=== PATIENT | female | born 2005 | race Caucasian/White ===

== ENCOUNTER 2023-06-07 14:10 | Emergency (ER) | payer OTHER, SELFPAY ==
[2023-06-07 14:11] VITALS: BP 127/88; PULSE 98; RESP 17; TEMP 36.2; BMI 28.4
[2023-06-07 14:18] VITALS: O2SAT 100
--- NOTE | 2023-06-07 14:24 | EKG12_ITS ---
Test Reason : Blood Pressure : / mmHG Vent. Rate : 078 BPM Atrial Rate : 078 BPM P-R Int : 158 ms QRS Dur : 084 ms QT Int : 380 ms P-R-T Axes : 044 082 036 degrees QTc Int : 433 ms Normal sinus rhythm Normal ECG Confirmed by ROBERT STEVENSON ([id number]), lime boiler INGRIS PURCELL ([id number]) on 06/20/2023 2:06:39 PM Referred By: Confirmed By:ROBERT STEVENSON
--- NOTE | 2023-06-07 14:28 | EDS_ITS ---
HPI History of Present Illness Chief Complaint: Syncope Informant: patient and spouse/S.O. Onset/Context/Timing Onset: Today Narrative Narrative: Patient presents with lightheadedness and syncope. She was standing outside at a when she became warm and lightheaded. She had some slight nausea. She apparently was in and out when trying to walk to the car. Patient does have a history of tachycardia but states she never followed up with the cardiac sonographer. She also started her menstrual cycle 3 days ago. She states the blood has been very dark in clotting more than normal. She reports that she also recently started taking a supplement called Yariel support which is supposed to help with the effects of COVID and the COVID- vaccine. She states as far she is aware it is vitamins and supplements but she does not know the specific ingredients. PFSH PFS Medical History Anxiety Depression H/O traumatic brain injury Home Medications ondansetron 4 mg disintegrating tablet 4 mg PO Q8H 06/07/23 [History Last Taken Unknown] rizatriptan 10 mg tablet (Maxalt) See Rx Instructions PO .COMPLEX 06/07/23 [History Last Taken Unknown] Allergy/AdvReac Type Severity Reaction Status Date / Time amoxicillin Allergy Unknown PT UNSURE Verified 06/07/23 14:16 OF REACTION Surgical History Hx of tonsillectomy Social History Smoking Status: Never smoker ROS ROS ED Constitutional Constitutional ED: Denies chills or fever(s) Eyes Eyes: Denies change in vision or discharge from eye(s) ENT ENT ED: Denies discharge from eye(s), rhinorrhea or sore throat Cardiovascular Cardiovascular: Denies chest pain Respiratory/Chest Respiratory/Chest: Denies cough or dyspnea Gastrointestinal Gastrointestinal: Reports nausea; Denies abdominal pain, diarrhea or vomiting Genitourinary Genitourinary ED: Denies dysuria Musculoskeletal Musculoskeletal: Denies back pain or extremity pain Integumentary Denies Abrasions or rash Neurologic Neurologic: Reports weakness; Denies headache(s) Psychiatric Psychiatric: Denies anxiety or depression Allergic/Immunologic Allergic/Immunologic ED: Denies lip swelling or urticaria EXAM Physical Exam Narrative Exam Narrative: Patient resting with her eyes closed but answers questions appropriately. Const Vital Signs: 06/07/23 14:11 06/07/23 14:18 06/07/23 14:18 Temperature 97.2 F L Temperature Source Temporal Pulse Rate 98 Respiratory Rate 17 Respiratory Effort Normal Non-Labored Respiratory Pattern Normal Blood Pressure 127/88 H Blood Pressure Mean 101 Pulse Ox 100 Oxygen Delivery Method Room Air Positive well nourished and well developed General Appearance ED: well developed HEENT Reports normocephalic and head/scalp atraumatic Eyes PERRL and EOMs intact bilaterally Neck supple Chest Wall inspection of chest normal and palpation of chest normal Resp normal respiratory effort and clear to auscultation bilaterally Cardio regular rate and regular rhythm GI normal to inspection, nondistended, normoactive bowel sounds Palpation: soft Extremity normal to inspection Neuro oriented x3 and no sensory deficits noted Sensorium / Orientation: alert Motor Exam: strength 5/5 throughout Psych mental status grossly normal Skin no rashes or lesions noted MDM MDM MDM Narrative Medical decision making narrative: Patient placed on panel monitor. EKG obtained to evaluate for cardiac arrhythmia/ischemia. Labwork obtained to evaluate for leukocytosis, anemia, and electrolyte derangement. Patient given a liter IV fluids. Lab Data Labs: Laboratory Results - last 24 hr 06/07/23 14:17 WBC 8.0 RBC 4.80 Hgb 13.3 Hct 41.8 MCV 87.1 MCH 27.7 MCHC 31.8 L RDW Std Deviation 40.2 RDW Coeff of Aldair 12.6 Plt Count 321 MPV 10.0 Immature Gran % (Auto) 0.400 Neut % (Auto) 61.0 Lymph % (Auto) 29.7 [place] % (Auto) 7.4 Eos % (Auto) 1.0 Baso % (Auto) 0.5 Absolute Neuts (auto) 4.9 Absolute Lymphs (auto) 2.37 Nucleated RBC % 0 Sodium 139 Potassium 3.8 Chloride 108 H Carbon Dioxide 26.0 Anion Gap 5 BUN 13 Creatinine 0.83 Estim Creat Clear Calc 109.07 Est GFR (MDRD) Af Amer 113 Est GFR (MDRD) Non-Af 93 BUN/Creatinine Ratio 15.7 Glucose 93 Calcium 9.3 Serum , Qual NEGATIVE EKG Initial EKG: Attestation: I personally reviewed and interpreted this EKG as follows: Interpretation: Sinus Rhythm (Sinus at 78 with no acute ischemia.) Treatment and Re-Evaluation :: On repeat evaluation patient feels significantly improved. CBC is unremarkable. Chemistry studies are normal. test is negative. Patient is ambulated in the emergency department without difficulty. She feels back to baseline will be discharged home with family. Discharge Plan Triage Chief Complaint: Syncope ED Provider: Mandy Fontaine Dx/Rx/DC Orders Clinical Impression: Syncope Instructions: ED Fainting, Uncertain Cause Prescriptions: No Action rizatriptan [Maxalt] 10 mg tablet See Rx Instructions .ROUTE .COMPLEX Rx Instructions: take 1 tab at onset of headache; if no relief may repeat 1 tab after at least 2 hrs; max = 3 tabs/24 hr ondansetron 4 mg tablet,disintegrating 4 mg PO Q8H Primary Care Provider: Kim Ward Referrals: Kim Ward [Other] - 3-5 Days if not improving Disposition Disposition: Home, Self Care
[2023-06-07] MEDS: 0.9% Normal Saline 1,000 ML 1000 ML IV (14:36)
[2023-06-07 14:50] LABS: Absolute Lymphocyte Count 2.37 X10^3/uL (0.83-4.51); Absolute Neutrophil Count 4.9 X10^3/uL (2.0-7.7); Basophil# 0.04 X10^3/uL; Basophil% 0.5 % (0-1); Eosinophil# 0.08 X10^3/uL; Hematocrit 41.8 % (37-47); Hemoglobin 13.3 g/dL (12.0-15.0); Lymphocyte # 2.37 X10^3/ul (0.83-4.51); Lymphocyte % 29.7 % (19-41); Mean Corp Hgb Conc 31.8 g/dL (32-36); Mean Corpuscular Hgb 27.7 pg (27.0-32.0); Mean Corpuscular Volume 87.1 fL (81-99); Monocyte# 0.59 X10^3/uL; Monocyte% 7.4 % (0-10); NRBC Flagged by Analyzer 0 % (0-5); Neutrophil # 4.87 X10^3/uL (2.7-7.7); Platelet Count 321 K/mm3 (150-450); RBC Distribution Width CV 12.6 % (11.6-14.6); RBC Distribution Width SD 40.2 fl (35.1-43.9)
[2023-06-07 15:04] LABS: Anion Gap 5 (5-15); BUN 13 mg/dL (7-18); BUN/Creat Ratio 15.7 RATIO (10-20); Calcium,Total 9.3 mg/dL (8.5-10.1); Chloride 108 mmol/L (98-107); Creatinine, Serum 0.83 mg/dL (0.55-1.02); EST Glomerular Filtration Rate 93 mL/min (>60); Est Glom Filt Rate - Afr Amer 113 mL/min (>60); Estimated Creatinine Clearance 109.07 ml/min; Glucose 93 mg/dL (74-106); Potassium 3.8 mmol/L (3.5-5.1); Sodium Level 139 mmol/L (136-145)
[2023-06-07 15:18] LABS: Internal QC Validated? YES +Cl - CLEAR BKGD; Pregnancy, Serum, hCG Quali. NEGATIVE Negative
[2023-06-07 16:04] VITALS: PULSE 87; RESP 18; O2SAT 100
[2023-06-10 07:14] LABS: Bedside Glucose 70 mg/dL (74-106)
== END 2023-06-07 16:07 | disposition home or self-care (01) ==
PROVIDERS: Emergency Provider Emergency Medicine; Visit Provider Emergency Medicine
DX: R55 Syncope and collapse (principal)
CPT/HCPCS: 80048; 82962; 84703; 85025; 93005; 96360; 99283; J7030

== ENCOUNTER 2023-12-30 10:12 | Emergency (ER) | payer OTHER, SELFPAY ==
[2023-12-30 10:12] VITALS: BP 122/73; PULSE 119; RESP 16; TEMP 36.9; O2SAT 100
[2023-12-30 10:13] VITALS: BP 122/73; PULSE 124; RESP 16; TEMP 36.9; O2SAT 100; BMI 28.0
--- NOTE | 2023-12-30 10:36 | EDS_ITS ---
HPI History of Present Illness Chief Complaint: Shortness of Breath Detail of Chief Complaint: Cough and shortness of breath Informant: patient Narrative Narrative: Patient started with nasal drainage and a cough 4 days ago. Seen at urgent care yesterday and had a negative strep screen. Discharged to home. Last night had a hard time sleeping and had some tightness in her chest. She called her PCPs office and was told to come to the ER to get evaluated. Patient has history of asthma. Patient called the office today to try to get inhaler prescribed for her. She denies any fevers. Patient denies recent travel or surgery. She d enies chest pain other than some tightness in the anterior chest. PFSH PFS Medical History Anxiety Depression H/O traumatic brain injury Home Medications ondansetron 4 mg disintegrating tablet 4 mg PO Q8H 06/07/23 [History Last Taken Unknown] rizatriptan 10 mg tablet (Maxalt) See Rx Instructions PO .COMPLEX 06/07/23 [History Last Taken Unknown] prednisone 20 mg tablet 20 mg PO BID #6 tabs 12/30/23 [Rx Last Taken Unknown] Allergy/AdvReac Type Severity Reaction Status Date / Time No Known Allergies Allergy Verified 12/30/23 10:16 Surgical History Hx of tonsillectomy Social History Smoking Status: Never smoker ROS ROS ED Review of Systems ROS Unobtainable: other Constitutional Constitutional ED: Reports lethargy; Denies chills, fever(s), sweats or weight loss Eyes Eyes: Denies blurry vision, change in vision or diplopia ENT ENT ED: Denies rhinorrhea or sore throat Cardiovascular Cardiovascular: Reports racing heartbeat; Denies chest pain or orthopnea Respiratory/Chest Respiratory/Chest: Reports cough, dyspnea and dyspnea on exertion; Denies orthopnea or sputum Gastrointestinal Gastrointestinal: Denies abdominal pain, diarrhea, nausea or vomiting Genitourinary Genitourinary ED: Denies dysuria, hematuria or urinary frequency Musculoskeletal Musculoskeletal: Denies arthralgias, back pain, myalgias or neck pain Integumentary Denies abscess, Abrasions or rash Neurologic Neurologic: Denies headache(s) or weakness Psychiatric Psychiatric: Denies anxiety, depression or suicidal thoughts Endocrine Endocrinology: Denies polydipsia, polyphagia or polyuria Hematologic/Lymphatic Hematologic/Lymphatic: Denies easy bleeding, easy bruising or lymphadenopathy Allergic/Immunologic Allergic/Immunologic ED: Denies mouth swelling, tongue swelling or urticaria EXAM Physical Exam Const Vital Signs: 12/30/23 10:12 12/30/23 10:13 12/30/23 10:43 Temperature 98.4 F 98.4 F Temperature Source Temporal Temporal Pulse Rate 119 H 124 H Respiratory Rate 16 16 Respiratory Effort Normal Non-Labored Respiratory Depth Normal Respiratory Pattern Normal Blood Pressure 122/73 H 122/73 H Blood Pressure Mean 89 89 Pulse Ox 100 100 Oxygen Delivery Method Room Air Room Air Room Air 12/30/23 10:56 Temperature Temperature Source Pulse Rate 81 Respiratory Rate 19 H Respiratory Effort Respiratory Depth Respiratory Pattern Normal Blood Pressure Blood Pressure Mean Pulse Ox Oxygen Delivery Method Positive well nourished and well developed General Appearance ED: well developed and NAD HEENT Reports TM's clear and moist mucous membranes normocephalic and atraumatic; Negative for trauma or tenderness Tympanic Membrane ED: Yes TM's clear Eyes PERRL and EOMs intact bilaterally General Eye ED: Negative for pale conjunctiva or scleral icterus Neck no lymphadenopathy, supple and no JVD General: Negative for tenderness Chest Wall inspection of chest normal and palpation of chest normal Chest: Negative for tenderness Resp normal respiratory effort and clear to auscultation bilaterally Resp Narrative: Minimal faint wheezes bilaterally. Good aeration bilaterally. No accessory muscle use or retractions. Effort and Inspection: Negative for respiratory distress or pain with movement Auscultation: wheezes; Negative for rhonchi or diminished lung sounds Cardio regular rhythm, S1 normal heart sound, S2 normal heart sound and no murmurs; Negative for regular rate Rate: tachycardic Peripheral Pulses: pulses 2+ throughout GI normal to inspection, nondistended, normoactive bowel sounds, soft to palpation, non-tender, non-distended and no masses Back/Spine no CVA tenderness and no thoracic nor lumbar tenderness Extremity normal to inspection General Extremety ED: Negative for edema General Extremity: Negative for edema Neuro oriented x3, CN's II-XII intact bilaterally, no sensory deficits noted and gait normal Sensorium / Orientation: awake, alert, oriented to person, oriented to place and oriented to time Motor Exam: strength 5/5 throughout and strength abnormal Psych mental status grossly normal Skin no rashes or lesions noted and no wounds MDM MDM MDM Narrative Medical decision making narrative: Patient presents with cough and some wheezing with history of asthma. She was given a DuoNeb aerosol. Chest x-ray obtained was unremarkable. Patient had COVID flu and RSV testing was positive for influenza B. Patient will be given an inhaler and will be started on prednisone. She is out of the window for Tamiflu. Advised to follow-up with her primary care physician within next 5 to 7 days. Patient advised to return if increasing shortness of breath or condition should worsen anyway. Lab Data Attestation: I reviewed the patient's lab results. Radiography Diagnostic Testing: Clinical Impression(s) from Imaging Studies Chest X-Ray 12/30/23 11:15 IMPRESSION: Normal x-ray examination of the chest. Electronically Signed: Emiliano House MD at 11:35 EDT , 1 view chest x-ray obtained interpreted by myself as no evidence of infiltrate or pneumothorax or acute disease process. Radiology in agreement. Discharge Plan Triage Chief Complaint: Shortness of Breath ED Provider: Giovani Fernandez Dx/Rx/DC Orders Clinical Impression: Reactive airway disease, Influenza Instructions: ED Bronchitis with Wheezing (Adult), ED Influenza (Adult) Prescriptions: New prednisone 20 mg tablet 20 mg PO BID Qty: 6 0RF No Action rizatriptan [Maxalt] 10 mg tablet See Rx Instructions .ROUTE .COMPLEX Rx Instructions: take 1 tab at onset of headache; if no relief may repeat 1 tab after at least 2 hrs; max = 3 tabs/24 hr ondansetron 4 mg tablet,disintegrating 4 mg PO Q8H Primary Care Provider: Kim Ward Referrals: Kim Ward [Other] Disposition Disposition: Home, Self Care
[2023-12-30] MEDS: Ipratropium/Albuterol Sulfate 3 ML AMPUL.NEB INHALATION (10:55)
[2023-12-30 10:56] VITALS: PULSE 81; RESP 19
--- NOTE | 2023-12-30 11:15 | RAD_ITS ---
STUDY: X-RAY CHEST REASON FOR EXAM: Female, 18 years old. Cough, dyspnea TECHNIQUE: PA and lateral views of the chest. COMPARISON: None. FINDINGS: The lungs are clear and expanded. There is no demonstrated pleural abnormality. Normal size heart. Normal mediastinum and tan. Normal visualized pulmonary arteries. Normal visualized aortic arch and descending thoracic aorta. Normal visualized thoracic spine. Normal visualized ribs, clavicles, and shoulders. There is no demonstrated abnormality of the visualized soft tissue structures of the upper abdomen. RAD/Chest PA and Lateral IMPRESSION: Normal x-ray examination of the chest. Electronically Signed: Emiliano House MD at 11:35 EDT ,
[2023-12-30 12:12] VITALS: BP 108/71; PULSE 92; RESP 16; TEMP 36.9; O2SAT 99
[2023-12-30] MEDS: Albuterol Sulfate 8 gm Inhaler (60 puffs) 2 PUFF INHALATION (12:26)
[2023-12-30] MEDS: predniSONE 20 MG Tablet 40 MG PO (12:26)
[2023-12-30 12:29] VITALS: BP 108/71; PULSE 92; RESP 16; TEMP 36.9; O2SAT 99
== END 2023-12-30 12:30 | disposition home or self-care (01) ==
PROVIDERS: Emergency Provider Emergency Medicine; Visit Provider Emergency Medicine
DX: J45.909 Unspecified asthma, uncomplicated (principal); J11.1 Influenza due to unidentified influenza virus with other respiratory manifestations
CPT/HCPCS: 71046; 87631; 94640; 99282

== ENCOUNTER 2024-12-02 10:53 | Emergency (ER) | payer OTHER, SELFPAY ==
[2024-12-02 10:54] VITALS: BP 95/71; PULSE 107; RESP 16; TEMP 36.8; O2SAT 100; BMI 28.1
[2024-12-02 12:22] VITALS: O2SAT 100
--- NOTE | 2024-12-02 12:35 | RAD_ITS ---
PROCEDURE: CHEST PA AND LATERAL REASON FOR EXAM: Shortness of breath. The patient is 13 weeks . Adequate shielding was obtained. TECHNIQUE: PA and lateral chest radiographs were obtained. COMPARISON: December 30, 2023. FINDINGS: The heart is nonenlarged. The lungs are clear. Scattered calcified granulomas. RAD/Chest PA and Lateral IMPRESSION: No acute abnormality is seen. Reading Location: [facility]
--- NOTE | 2024-12-02 12:47 | EX.ED.DYSGE1 ---
HPI History of Present Illness Chief Complaint: Asthma Detail of Chief Complaint: Exacerbation of asthma, postnasal drainage, sore throat Onset/Context/Timing Onset: Yesterday Context: Sudden Onset Timing: Intermittent Quality: Mild upper respiratory symptoms with wheezing and shortness of breath Location: Respiratory Current Severity: Mild Maximum Severity: Moderate Worsened by: Nothing specific Relieved by: Nothing Associated Symptoms Associated Symptoms: Denies fever or chills Narrative Narrative: Patient is a 19-year-old female who is 13 weeks gestation. She has mild upper respiratory tract symptoms. She denies documented fever. She denies shaking chills or subjective fever. She does have mild congestion with sore throat. Denies ear pain. She has slight cough. She has been wheezing. She has been using her inhaler more frequent. Does not have a spacer. She has not been on prednisone in the last 3 to 6 months. She denies abdominal pain, nausea, vomit or diarrhea. When asked if it hurts to breathe she states she feels she is not getting enough air. She has no history of VTE. Denies leg pain, swelling discoloration. Review of prior records in case patient has been on prednisone in the past for her asthma. Prior similar symptoms: Yes Recent Illness/Hospitalization: No PFSH PFSH Medical History H/O traumatic brain injury Depression Anxiety Home Medications ?Medication ?Instructions ?Recorded ?Last Taken ?Type ondansetron 4 mg disintegrating 4 mg PO Q8H 06/07/23 Unknown History tablet rizatriptan 10 mg tablet (Maxalt) See Rx Instructions PO .COMPLEX 06/07/23 Unknown History prednisone 20 mg tablet 20 mg PO BID #6 tabs 12/30/23 Unknown Rx prednisone 20 mg tablet 60 mg (3 x 20 mg) PO DAILY #15 12/02/24 Unknown Rx TABLETS Allergy/AdvReac Type Severity Reaction Status Date / Time No Known Allergies Allergy Verified 12/02/24 10:54 Surgical History Hx of tonsillectomy Social History household members: spouse housing: house Smoking Status: Never smoker ROS ROS ED Constitutional Constitutional ED: Denies chills, fever(s) or subjective Eyes Eyes: Denies blurry vision or change in vision ENT ENT ED: Reports sore throat; Denies ear pain or rhinorrhea Cardiovascular Cardiovascular: Denies chest pain, orthopnea, palpitations or paroxysmal nocturnal dyspnea Respiratory/Chest Respiratory/Chest: Reports cough, dyspnea and dyspnea on exertion; Denies orthopnea, paroxysmal nocturnal dyspnea or sputum Gastrointestinal Gastrointestinal: Denies abdominal pain, diarrhea, nausea or vomiting Genitourinary Genitourinary ED: Denies dysuria, hematuria or urinary frequency Musculoskeletal Musculoskeletal: Denies arthralgias or myalgias Integumentary Denies rash Neurologic Neurologic: Denies headache(s) or paresthesias Hematologic/Lymphatic Hematologic/Lymphatic: Reports systems reviewed and no addt'l complaints, except as documented EXAM Physical Exam Const Vital Signs: 12/02/24 10:54 12/02/24 12:22 12/02/24 12:54 Temperature 98.2 F Temperature Source Temporal Pulse Rate 107 H 87 Respiratory Rate 16 Respiratory Effort Short of Breath Respiratory Depth Normal Respiratory Pattern Tachypnea Blood Pressure 95/71 104/64 Blood Pressure Mean 79 77 Pulse Ox 100 99 Oxygen Delivery Method Room Air Room Air 12/02/24 14:00 Temperature Temperature Source Pulse Rate 102 H Respiratory Rate 14 Respiratory Effort Respiratory Depth Respiratory Pattern Blood Pressure 108/72 Blood Pressure Mean 84 Pulse Ox 99 Oxygen Delivery Method Room Air Positive well nourished and well developed General Appearance ED: well developed and NAD; Negative for cyanotic, diaphoretic or pallor HEENT Reports moist mucous membranes HEENT Narrative: Head is atraumatic normocephalic. Ears normal. TMs normal. Nares patent with questionable slight drainage. Posterior pharynx is normal Eyes PERRL and EOMs intact bilaterally General Eye ED: Negative for pale conjunctiva or scleral icterus Neck no lymphadenopathy, supple and no JVD Chest Wall inspection of chest normal and palpation of chest normal Resp normal respiratory effort and clear to auscultation bilaterally Cardio regular rate, regular rhythm, S1 normal heart sound, S2 normal heart sound and no murmurs GI normal to inspection, nondistended, normoactive bowel sounds, non-tender, non-distended and no masses Extremity normal to inspection Extremity Narrative: There is no asymmetry, swelling, discoloration, leg vein distention, palpable cords or tenderness along the distribution of the deep venous system. Neuro oriented x3 and CN's II-XII intact bilaterally Sensorium / Orientation: alert Psych mental status grossly normal Skin no rashes or lesions noted, no wounds and skin turgor normal General Skin Exam: elasticity normal; Negative for jaundice or pallor MDM MDM MDM Narrative Medical decision making narrative: Suspect patient has mild viral-like symptoms that is causing exacerbation of her asthma. Since she is presently not wheezing she was not treated with any sympathomimetic inhaler or aerosol. Chest x-ray was obtained. Also obtain rapid antigen for COVID, RSV and influenza. X-ray was obtained to rule out pneumothorax, infiltrate or any other abnormality. Lab Data Attestation: I reviewed the patient's lab results. Lab results narrative: Rapid antigen for COVID, influenza and RSV are all negative. In my opinion this is due to a viral infection causing exacerbation of her asthma. She be discharged home. I am not concerned that she has a pulmonary embolus Radiography Chest X-Ray - ED: 2 View, Read by ED Physician (Interpreted by me at 1247.), Normal, Heart, Lungs, Mediastinum, Bony Structures and No Acute Disease Diagnostic Testing: Clinical Impression(s) from Imaging Studies Chest X-Ray 12/02/24 12:35 IMPRESSION: No acute abnormality is seen. 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, pneumonia Reason(s) pneumonia less likely: Positive for no infiltrate on CXR and no noted fever, CHF Reason(s) CHF less likely: Positive for no significant peripheral edema, no orthopnea, no evidence of fluid overload on CXR and BtNP not significantly elevated over normal/baseline and COPD Reason(s) COPD less likely: Positive for no significant wheezing on exam, no tachypnea, no conversational dyspnea and normal air movement noted on auscultation on lungs Discharge Plan Triage Chief Complaint: Asthma ED Provider: Rick Rodrigues Dx/Rx/DC Orders Clinical Impression: Asthma exacerbation, Viral respiratory illness Instructions: ED URI, Viral, No Abx (Adult) Prescriptions: New prednisone 20 mg tablet 60 mg PO DAILY Qty: 15 0RF No Action rizatriptan [Maxalt] 10 mg tablet See Rx Instructions .ROUTE .COMPLEX Rx Instructions: take 1 tab at onset of headache; if no relief may repeat 1 tab after at least 2 hrs; max = 3 tabs/24 hr ondansetron 4 mg tablet,disintegrating 4 mg PO Q8H prednisone 20 mg tablet 20 mg PO BID Qty: 6 0RF Primary Care Provider: Kim Ward Referrals: Kim Ward [Other] - 1 Week if not improving Print Language: Italian Disposition Disposition: Home, Self Care
[2024-12-02 12:54] VITALS: BP 104/64; PULSE 87; O2SAT 99
[2024-12-02 14:00] VITALS: BP 108/72; PULSE 102; RESP 14; O2SAT 99
== END 2024-12-02 14:40 | disposition home or self-care (01) ==
PROVIDERS: Emergency Provider Emergency Medicine; Referring Provider Emergency Medicine; Visit Provider Emergency Medicine
DX: O99.511 Diseases of the respiratory system complicating pregnancy, first trimester (principal); J45.901 Unspecified asthma with (acute) exacerbation; J06.9 Acute upper respiratory infection, unspecified; Z3A.13 13 weeks gestation of pregnancy
CPT/HCPCS: 71046; 87631; 99283; A4216

== ENCOUNTER 2025-06-06 04:51 | Inpatient (IN) | payer OTHER, SELFPAY ==
[2025-06-06] VITALS (63 sets, daily range): BP systolic 96–139; BP diastolic 55–87; PULSE 68–107; RESP 16–18; TEMP 36.5–37.3; O2SAT 79–100; BMI 34.0
--- OUTSIDE RECORDS SUMMARY | 2025-06-06 04:22 | XMS RPT_ITS | CCD ---
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 Name Role Phone Sylvia VICKERS, Kim Primary Care Provider Amstadt DO, Kim Primary Care Provider CoursJacques umana DO Unavailable Jacques Hu DO Unavailable Amstadt DO, Kim Primary Care Provider AMSDT, KIM Primary Care Unavailable Harvan [facility] COOK.Felicia PETTIT Unavailable Amstadt , [facility] Primary Care Provider FAIR, MUDITA Primary Care Unavailable Rodrigues, Rcik Referring Unavailable Rodrigues, Rick Attending Unavailable Giovani Fernandez Attending Unavailable FAIR, MUDITA Primary Care Unavailable Mary Ellen NUTRITIONAL SERVICES COOK.Jillian PETTIT Unavailable [phone] Donte Singleton MD Primary Care Provider Podlogar [facility] COOK.Lexy PETTIT Unavailable [place] [facility] COOK.Shobha PETTIT Unavailable Amstadt DO, [facility] Primary Care Provider Harvan [facility] COOK.Felicia PETTIT Unavailable Am[place] , [facility] Primary Care Provider [place] [facility] COOK.Jillian PETTIT Unavailable [place] [facility] COOK.Shobha PETTIT Unavailable Jacques Hu DO Unavailable ALLI FORRESTER Referring Unavailable MANDY SAM Attending Unavailable AMSTADT, KIM Primary Care Unavailable BURSLEY, CHRISTOPHER Primary Care Unavailable KAMRAN GUTHRIE Attending Unavailable ARLENE NARAYAN Attending Unavailable BURSLEY, CHRISTOPHER Primary Care Unavailable ANGÉLICAWELLCLARE Attending Unavailable AMSTADT, KIM Primary Care Unavailable ARLENE NARAYAN Attending Unavailable BURSLEY, CHRISTOPHER Primary Care Unavailable ARLENE NARAYAN Referring Unavailable TATI BOWLES Attending Unavailable BURSLEY, CHRISTOPHER Primary Care Unavailable CLARE FRANK Attending Unavailable BURSLEY, CHRISTOPHER Primary Care Unavailable MANDY SAM Attending Unavailable BURSLEY, CHRISTOPHER Primary Care Unavailable BURSLEY, CHRISTOPHER Primary Care Unavailable TATI BOWLES Attending Unavailable BURSLEY, NELLER Attending Unavailable SELF Referring Unavailable AMSTADT, KIM Primary Care Unavailable TATI BOWLES Attending Unavailable AMSTADT, KIM Primary Care Unavailable BURSLEY, CHRISTOPHER Primary Care Unavailable NICKY CONNELL Attending Unavail able AMSTADT, KIM Primary Care Unavailable BURSLEY, CHRISTOPHER Primary Care Unavailable BURSLEY, CHRISTOPHER Attending Unavailable BURSLEY, CHRISTOPHER Primary Care Unavailable BURSLEY, CHRISTOPHER Referring Unavailable BURSLEY, CHRISTOPHER Primary Care Unavailable HAURY, ALLI Referring Unavailable BURSLEY, CHRISTOPHER Primary Care Unavailable HAURY, ALLI Referring Unavailable MANDY SAM Attending Unavailable AMSTADT, KIM Primary Care Unavailable AMSTADT, KIM Referring Unavailable HAURY, ALLI Attending Unavailable AMSTADT, KIM Primary Care Unavailable HAURY, ALLI Referring Unavailable AMSTADT, KIM Primary Care Unavailable HAURY, ALLI Referring Unavailable AMSTADT, KIM Primary Care Unavailable ARLENE NARAYAN Attending Unavailable BURSLEY, CHRISTOPHER Primary Care Unavailable BURSLEY, CHRISTOPHER Primary Care Unavailable BURSLEY, CHRISTOPHER Primary Care Unavailable ARLENE NARAYAN Attending Unavailable BURSLEY, CHRISTOPHER Primary Care Unavailable HAURY, ALLI Referring Unavailable AMSTADT, KIM Primary Care Unavailable HAURY, ALLI Attending Unavailable BURSLEY, CHRISTOPHER Primary Care Unavailable NARAYANJENNIFERARLENE Referring Unavailable BURSLEY, CHRISTOPHER Primary Care Unavailable BURSLEY, CHRISTOPHER Primary Care Unavailable NICKY CONNELL Attending Unavail able BURSLEY, CHRISTOPHER Primary Care Unavailable CHRIS ALFORD Attending Unavailable SELF Referring Unavailable Allergies Allergy Classification Reported Allergen(s) Allergy Type Date of Onset Reaction(s) Facility (20 sources) Cat; Translations: [CATS] Propensity to adverse reactions 3 Itching [facility] (20 sources) Dust; Translations: [DUST] Propensity to adverse reactions 3 Itching, Other: See Comments [facility] (20 sources) Grass pollen; Translations: [GRASS POLLEN] Drug Allergy 1 Rash [facility] (5 sources) Amoxicillin; Translations: [AMOXICILLIN] Drug Allergy 3 Other: See Comments [facility] Medications Current Medications Medication Drug Class(es) Dates Sig (Normalized) Sig (Original) [id number] 200 actuat albuterol 0.09 mg/actuat metered dose inhaler (20 sources) beta2-Adrenergic Agonist Start: 01-22-2024 take 2 puff(s) by inhalation every four hours as needed for wheezing albuterol HFA (VENTOLIN HFA) 90 mcg/actuation inhaler Inhale 2 Puffs as instructed every 4 hours as needed for wheezing/shortness of breath. 1 Each 2 01/22/2024 Active Comment on above: Inhale 2 Puffs as in structed every 4 hours as needed for wheezing/shortness of breath. amoxicillin 875 mg oral tablet (1 source) Penicillin-class Antibacterial Start: 12-12-2022 End: 12-22-2022 take 1 tablet by mouth twice daily amoxicillin (AMOXIL) 875 mg tablet Take 1 tablet by mouth twice daily for 10 days. 20 tablet 0 12/12/2022 12/22/2022 Active Comment on above: Take 1 tablet by [facility] twice daily for 10 days. amoxicillin 875 mg / clavulanate 125 mg oral tablet (2 sources) Penicillin-class Antibacterial Start: 02-23-2025 End: 03-05-2025 take 1 tablet by mouth twice daily amoxicillin-clavula jame potassium (AUGMENTIN) 875-125 mg per tablet Indications: Acute non-recurrent pansinusitis Take 1 tablet by mouth two times a day for 10 days. 20 tablet 02/23/2025 03/05/2025 Active Budesonide / formoterol (1 source) Corticosteroid, beta2-Adrenergic Agonist Start: 12-15-2024 End: 12-15-2024 take 2 puff(s) by inhalation every four hours as needed budesonide-formoter ol (SYMBICORT) 160-4.5 mcg/actuation inhaler Inhale 2 Puffs as instructed every 4 hours as needed (for asthma exacerbation). 1 Each 2 12/15/2024 12/15/2024 Discontinued nitrofurantoin, macrocrystals 25 mg / nitrofurantoin, monohydrate 75 mg oral capsule (1 source) Nitrofuran Antibacterial Start: 07-25-2024 End: 07-30-2024 take 1 capsule by mouth twice daily nitrofurantoin monohydrate and macrocrystal (MACROBID) 100 mg capsule Take 1 capsule by mouth two times a day for 5 days. 10 capsule 07/25/2024 07/30/2024 Active ondansetron 4 mg oral tablet (20 sources) Serotonin-3 Receptor Antagonist Start: 07-14-2023 End: 03-16-2025 take 1 tablet by mouth every eight hours as needed ondansetron (ZOFRAN) 4 mg tablet Take 1 tablet by mouth every 8 hours as needed for nausea/vomiting. 30 tablet 07/14/2023 03/16/2025 Discontinued (Course of therapy completed) Start: 06-07-2023 take 4 mg by mouth e very eight hours Ondansetron Active 4 MG PO Q8H June 07, 2023 12:00am ondansetron (ZOF RAN) 4 mg tablet Take by mouth every 8 hours as needed for nausea/vomiting. 0 Active Comment on above: Take by mouth every 8 hours as needed for nausea/vomiting. Take 1 tablet by deandre every 8 hours as needed for nausea/vomiting. predniSONE 20 mg oral tablet (1 source) Start: take 20 mg by mouth twice daily Prednisone Active 20 MG PO TWICE A DAY December 30, 2023 12:00am vit/iron fum/folic ac ( 1 + 1 ORAL) (20 sources) vit/iro n fum/folic ac ( 1 + 1 ORAL) Take by mouth. Active proparacaine hydrochloride 5 mg/ml ophthalmic solution (1 source) Local Anesthetic Start: End: proparacaine 0.5 % 1 Drop (ALCAINE) rizatriptan 10 mg oral tablet (20 sources) Serotonin-1b and Serotonin-1d Receptor Agonist Start: 023 End: take 1 tablet by mouth every two hours as needed rizatriptan (MAXALT) 10 mg tablet Take 1 tablet (10 mg) by mouth as needed. May repeat in 2 hours if needed 9 tablet 11 07/14/2023 03/16/2025 Discontinued (Course of therapy completed) Comment on above: Take 10 mg by mouth as needed. May repeat in 2 hours if needed Take 1 tablet (10 mg ) by mouth as needed. May repeat in 2 hours if needed sulfamethoxazole 800 mg / trimethoprim 160 mg oral tablet (1 source) Dihydrofolate Reductase Inhibitor Antibacterial, Sulfonamide Antimicrobial Start: End: take 1 tablet by mouth twice daily sulfamethoxazole-tr imethoprim (BACTRIM DS) 800-160 mg per tablet Indications: Dysuria , UTI symptoms Take 1 tablet by mouth two times a day for 7 days. 14 tablet 0 05/16/2024 05/23/2024 Active triamcinolone acetonide 0.11544 mg/mg topical ointment (20 sources) Corticosteroid Start: End: triamcinolone (KENALOG) 0.025 % ointment Apply to affected area two times a day. 80 g 12/23/2024 06/07/2025 Active tropicamide 10 mg/ml ophthalmic solution (2 sources) Anticholinergic Start: End: tropicamide 1 % 1 Drop (MYDRIACYL) Start: 01-06-2023 End: 01-07-2023 tropicamide 1 % 1 Drop (MYDR IACYL) Completed/Discontinued Medications Medication Drug Class(es) Dates Sig (Normalized) Sig (Original) aspirin 81 mg delayed release oral tablet (18 sources) Platelet Aggregation Inhibitor, Nonsteroidal Anti-inflammatory Drug Start: 10-27-2024 End: 02-23-2025 take 1 tablet by mouth once daily aspirin, enteric coated (ECOTRIN LOW STRENGTH) 81 mg EC tablet Indications: Encounter for supervision of high risk in first trimester, antepartum (HCC) , 8 weeks gestation of ([facility]) , with uncertain dates in first trimester ([facility]) , History of eating disorder Take 1 tablet by mouth once daily. 90 tablet 3 10/27/2024 02/23/2025 Discontinued cephalexin 500 mg oral capsule (2 sources) Cephalosporin Antibacterial Start: 07-24-2024 End: 07-31-2024 take 1 capsule by mouth twice daily cephALEXin (KEFLEX) 500 mg capsule Indications: Acute cystitis with hematuria Take 1 capsule by mouth two times a day for 7 days. 14 capsule 07/24/2024 07/25/2024 Discontinued DULoxetine 30 mg delayed release oral capsule (10 sources) Serotonin and Norepinephrine Reuptake Inhibitor Start: 05-06-2022 End: 12-12-2022 take 1 capsule by mouth once daily DULoxetine (CYMBALTA) 30 mg capsule Take 1 capsule by mouth once daily. 90 capsule 3 10/23/2022 12/12/2022 Discontinued (Course of therapy completed) Comment on above: Take 1 capsule by mo ut once daily. Take 30 mg by mouth once daily. ergocalciferol 1.25 mg oral capsule (15 sources) Provitamin D2 Compound Start: 09-13-2023 End: 10-27-2024 take 1 capsule by mouth every week ergocalciferol 50,000 unit capsule (VITAMIN D2, DRISDOL) Indications: Vitamin D deficiency Take 1 capsule by mouth one time a week. Use as directed. 12 capsule 02/12/2024 10/27/2024 Discontinued Comment on above: Take 1 capsule by mo ut one time a week. Use as directed. etonogestrel 68 mg drug implant (1 source) Progestin Start: 08-16-2022 End: 08-16-2022 etonogestrel subdermal implant 68 mg (NEXPLANON) Start: 08-16-2022 End: 08-16-2022 etonogestrel subdermal impla nt 68 mg (NEXPLANON) Multivitamin capsule (5 sources) take 1 capsule by mouth once daily Multivitamin capsule Take 1 capsule by mouth once daily. 0 Active Comment on above: Take 1 capsule by mo ut once daily. norethindrone 0.35 mg oral tablet (2 sources) Start: 2 End: 3 take 1 tablet by mouth once daily Norethindrone, Contraceptive, (ORTHO MICRONOR) 0.35 mg tablet Take 1 tablet by mouth once daily. 84 tablet 3 05/21/2022 08/16/2022 Discontinued Comment on above: Take 1 tablet by deandre once daily. Problems Active Problems Problem Classification Problem Date Documented Date Episodic/Chronic Asthma (20 sources) Reactive airway disease; Translations: [Unspecified asthma, uncomplicated] Onset: 10-27-2024 12-30-2023 Chronic Blindness and vision defects (2 sources) Bilateral myopia of eyes; Translations: [Myopia, bilateral] 11-27-2023 Episodic Cardiac dysrhythmias (1 source) Palpitations; Translations: [Palpitations] Episodic Conditions associated with dizziness or vertigo (3 sources) Lightheadedness; Translations: [Dizziness and giddiness] Episodic Esophageal disorders (20 sources) Gastroesophageal reflux disease; Translations: [Gastro-esophageal reflux disease without esophagitis] Onset: 09-10-2023 Resolved: 10-27-2024 09-10-2023 Chronic Genitourinary symptoms and ill-defined conditions (2 sources) Dysuria; Translations: [Dysuria] 05-16-2024 Episodic Headache; including migraine (20 sources) Migraine with aura; Translations: [Migraine with aura, not intractable, without status migrainosus] Onset: 05-06-2022 Chronic Headache; including migraine (1 source) Headache; Translations: [Headache, unspecified headache type] 02-23-2024 Episodic Immunizations and screening for infectious disease (9 sources) Patient encounter status; Translations: [Encounter for screening for infections with a predominantly sexual mode of transmission] Episodic Influenza (1 source) Influenza; Translations: [Influenza due to unidentified influenza virus with other respiratory manifestations] 12-30-2023 Episodic Menstrual disorders (1 source) Irregular periods; Translations: [Irregular menstruation, unspecified] Chronic Miscellaneous mental health disorders (19 sources) Eating disorder; Translations: [Eating disorder, unspecified] Onset: 06-13-2023 06-13-2023 Chronic Mood disorders (20 sources) Depressive disorder; Translations: [Depression, unspecified depression type] Onset: 05-06-2022 Chronic Nutritional deficiencies (3 sources) Vitamin D deficiency; Translations: [Vitamin D deficiency, unspecified] Onset: 08-23-2024 02-12-2024 Chronic Other complications of (20 sources) High risk ; Translations: [Supervision of high risk , unspecified, first trimester] Onset: 10-27-2024 10-27-2024 Episodic Other complications of (6 sources) Uterine size for dates discrepancy; Translations: [Uterine size-date discrepancy, third trimester] 04-13-2025 Episodic Other complications of (1 source) Supervision of high risk , unspecified, third trimester; Translations: [Supervision of high risk in third trimester (HCC)] Onset: 04-20-2025 Episodic Other complications of (1 source) Uterine size-date discrepancy, third trimester; Translations: [Uterine size-date discrepancy, third trimester (HCC)] Onset: 04-13-2025 Episodic Other ear and sense organ disorders (1 source) Abnormal auditory perception; Translations: [Other abnormal auditory perceptions, unspecified ear] Episodic Other eye disorders (1 source) Vitreous floaters of right eye; Translations: [Other vitreous opacities, right eye] Chronic Other female genital disorders (1 source) Vaginal bleeding; Translations: [Abnormal uterine and vaginal bleeding, unspecified] 12-27-2024 Chronic Other female genital disorders (1 source) Vaginal discharge; Translations: [Other specified noninflammatory disorders of vagina] 12-27-2024 Episodic Other injuries and conditions due to external causes (2 sources) Injury of neck; Translations: [Unspecified injury of neck, initial encounter] 02-23-2024 Episodic Other injuries and conditions due to external causes (1 source) Injury of abdomen; Translations: [Unspecified injury of abdomen, initial encounter] 04-20-2025 Episodic Other injuries and conditions due to external causes (1 source) Unspecified injury of abdomen, initial encounter; Translations: [Abdominal trauma, initial encounter] Onset: 04-20-2025 Episodic Otitis media and related conditions (1 source) Acute right otitis media; Translations: [Otitis media, unspecified, right ear] Episodic Residual codes; unclassified (1 source) Gestation period, 8 weeks; Translations: [8 weeks gestation of ] 10-27-2024 Episodic Residual codes; unclassified (2 sources) Gestation period, 12 weeks; Translations: [12 weeks gestation of ] 11-26-2024 Episodic Residual codes; unclassified (1 source) Gestation period, 15 weeks; Translations: [15 weeks gestation of ] 12-15-2024 Episodic Residual codes; unclassified (2 sources) Gestation period, 16 weeks; Translations: [16 weeks gestation of ] 12-23-2024 Episodic Residual codes; unclassified (1 source) Gestation period, 17 weeks; Translations: [17 weeks gestation of ] 12-29-2024 Episodic Residual codes; unclassified (2 sources) Gestation period, 20 weeks; Translations: [20 weeks gestation of ] 01-21-2025 Episodic Residual codes; unclassified (1 source) Gestation period, 24 weeks; Translations: [24 weeks gestation of ] 02-16-2025 Episodic Residual codes; unclassified (1 source) Gestation period, 28 weeks; Translations: [28 weeks gestation of ] 03-16-2025 Episodic Residual codes; unclassified (1 source) Gestation period, 29 weeks; Translations: [29 weeks gestation of ] 03-28-2025 Episodic Residual codes; unclassified (2 sources) Gestation period, 32 weeks; Translations: [32 weeks gestation of ] 04-13-2025 Episodic Residual codes; unclassified (2 sources) Gestation period, 33 weeks; Translations: [33 weeks gestation of ] 04-20-2025 Episodic Residual codes; unclassified (2 sources) Gestation period, 34 weeks; Translations: [34 weeks gestation of ] 04-28-2025 Episodic Residual codes; unclassified (1 source) Gestation period, 35 weeks; Translations: [35 weeks gestation of ] 05-09-2025 Episodic Residual codes; unclassified (1 source) Gestation period, 38 weeks; Translations: [38 weeks gestation of ] 05-24-2025 Episodic Residual codes; unclassified (2 sources) Gestation period, 39 weeks; Translations: [39 weeks gestation of ] 06-01-2025 Episodic Residual codes; unclassified (1 source) 39 weeks gestation of ; Translations: [39 weeks gestation of (HCC)] Onset: 06-03-2025 Episodic Residual codes; unclassified (1 source) 38 weeks gestation of ; Translations: [38 weeks gestation of (HCC)] Onset: 05-24-2025 Episodic Residual codes; unclassified (1 source) 37 weeks gestation of ; Translations: [37 weeks gestation of (HCC)] Onset: 05-18-2025 Episodic Residual codes; unclassified (1 source) 35 weeks gestation of ; Translations: [35 weeks gestation of (HCC)] Onset: 05-09-2025 Episodic Residual codes; unclassified (1 source) 34 weeks gestation of ; Translations: [34 weeks gestation of (HCC)] Onset: 04-28-2025 Episodic Residual codes; unclassified (1 source) 33 weeks gestation of ; Translations: [33 weeks gestation of (HCC)] Onset: 04-20-2025 Episodic Residual codes; unclassified (1 source) 32 weeks gestation of ; Translations: [32 weeks gestation of (HCC)] Onset: 04-13-2025 Episodic Residual codes; unclassified (1 source) 29 weeks gestation of ; Translations: [29 weeks gestation of (HCC)] Onset: 03-28-2025 Episodic Residual codes; unclassified (1 source) 28 weeks gestation of ; Translations: [28 weeks gestation of (HCC)] Onset: 03-16-2025 Episodic Spondylosis; intervertebral disc disorders; other back problems (1 source) Neck pain; Translations: [Cervicalgia] 02-23-2024 Episodic Unclassified (20 sources) [facility] Education - COMMON Onset: 10-27-2024 10-27-2024 Unclassified (20 sources) Education - [place] Onset: 10-27-2024 10-27-2024 Past or Other Problems Problem Classification Problem Date Documented Da te Episodic/Chronic Intracranial injury (20 sources) Traumatic brain injury; Translations: [Unspecified intracranial injury without loss of consciousness, subsequent encounter] Onset: 05-06-2022 Episodic Other complications of (20 sources) Asthma in ; Translations: [Diseases of the respiratory system complicating , first trimester] Onset: 10-27-2024 10-27-2024 Episodic Other complications of (20 sources) Vomiting of , unspecified; Translations: [Unspecified vomiting of , unspecified as to episode of care or not applicable] Onset: 10-27-2024 Resolved: 03-16-2025 10-27-2024 Episodic Other complications of (20 sources) Diseases of the digestive system complicating , first trimester; Translations: [Other current conditions classifiable elsewhere of mother, antepartum condition or complication] Onset: 10-27-2024 Resolved: 03-16-2025 10-27-2024 Episodic Other complications of (2 sources) Diseases of the respiratory system complicating , first trimester; Translations: [Diseases of the respiratory system complicating , first trimester] Onset: 10-27-2024 Episodic Other complications of (1 source) Supervision of high risk , unspecified, second trimester; Translations: [Supervision of high risk in second trimester (HCC)] Onset: 12-23-2024 Episodic Other complications of (2 sources) Supervision of high risk , unspecified, first trimester; Translations: [Encounter for supervision of high risk in first trimester, antepartum ([facility])] Onset: 10-27-2024 Episodic Other lower respiratory disease (1 source) Shortness of breath; Translations: [Shortness of breath] Onset: 01-05-2024 Episodic Other nutritional; endocrine; and metabolic disorders (20 sources) Overweight in adulthood with body mass index of 25 or more but less than 30; Translations: [Body mass index (BMI) 29.0-29.9, adult] Onset: 05-06-2022 Episodic Other and delivery including normal (20 sources) with uncertain dates; Translations: [Encounter for supervision of normal , unspecified, first trimester] Onset: 10-27-2024 Resolved: 03-16-2025 10-27-2024 Episodic Other screening for suspected conditions (not mental disorders or infectious disease) (1 source) Encounter for screening for diabetes mellitus; Translations: [Screening for diabetes mellitus] Onset: 02-16-2025 Episodic Other upper respiratory infections (9 sources) Viral upper respiratory tract infection; Translations: [Acute upper respiratory infection, unspecified] Onset: 02-20-2025 09-15-2023 Episodic Residual codes; unclassified (1 source) 24 weeks gestation of ; Translations: [24 weeks gestation of ([facility])] Onset: 02-16-2025 Episodic Residual codes; unclassified (2 sources) 8 weeks gestation of ; Translations: [8 weeks gestation of (HCC)] Onset: 10-27-2024 Episodic Residual codes; unclassified (1 source) 17 weeks gestation of ; Translations: [17 weeks gestation of ] Onset: 12-29-2024 Episodic Screening and history of mental health and substance abuse codes (20 sources) History of eating disorder; Translations: [Personal history of other mental and behavioral disorders] Onset: 05-06-2022 10-27-2024 Episodic Syncope (20 sources) Syncope; Translations: [Syncope and collapse] Onset: 09-10-2023 Episodic Urinary tract infections (2 sources) Acute cystitis; Translations: [Acute cystitis with hematuria] Onset: 07-24-2024 07-24-2024 Episodic Results Test Name Value Interpretation Reference Range Facility URINE OB DIP B/Oon 5 Glucose Ql (U) Negative Neg mg/dL [facility] Interpretation and review of laboratory results Normal [facility] Protein.monoclonal (U) [Mass/Vol] trace Neg mg/dL [facility] URINE OB DIP B/Oon 5 Glucose Ql (U) Negative Neg mg/dL [facility] Protein.monoclonal (U) [Mass/Vol] Negative Neg mg/dL [facility] ROUTINE, GROUP B ST REPTOCOCCUS BY PCRon 05-18-2025 ROUTINE, GROUP B STREPTOCOCCUS BY PCR Not detected Normal [facility] Comment on above: Performed By: #### G BPCR ####[facility] [id number] [place] [address] [place] URINE OB DIP B/Oon 5 Glucose Ql (U) Negative Neg mg/dL [facility] Interpretation and review of laboratory results Normal [facility] Protein.monoclonal (U) [Mass/Vol] Negative Neg mg/dL [facility] Examination level ultrasound on 04-28-2025 [facility] Radiology Study observation (narrative) [facility] URINE OB DIP B/Oon 5 Glucose Ql (U) Negative Neg mg/dL [facility] Interpretation and review of laboratory results Normal [facility] Protein.monoclonal (U) [Mass/Vol] Negative Neg mg/dL [facility] CNPNon 04-20-2025 CNPN Telephone (OBGYWM) ---- HOWARD DONALD ([id number]) 03 F [facility] Date Time Provider Department 04/20/25 ALLI FORRESTERWSonido During your visit today, we recorded the following information about you: Alli Forrester APRN.CNP 04/20/2025 11:56 AM Signed Patient is [employer] employee and approached provider about her dog jumping on her abdomen pretty forcefully last night. Denies bleeding or cramping. Recommend NST and appointment. Can add on to my schedule. Plans to arrive in about 10 minutes. JOSÉ Hilliard Emily, APRN.CNP 04/20/2025 12:58 PM Signed NST reactive. Feeling good FM. Precautions reviewed. JOSÉ Hilliard Tara, RN 04/20/2025 2:11 PM Signed [facility] scheduled for 04/28/25. Goldie Oquendo RN Allergies As of Date: 04/20/2025 Noted Allergy Reaction CATS 01/06/2023 9 - Itching DUST 01/06/2023 9 - Itching 14 - Other: See Comments GRASS POLLEN 03/14/2021 2 - Rash Comments: Sneezing and Rash Date Reviewed: 04/20/2025 Reviewed by: Alli Forrester APRN.CNP - Fully Assessed Reason for Visit: Patient Question [6090] Prescriptions as of 04/20/2025 - triamcinolone (KENALOG) 0.025 % ointment Apply to affected area two times a day. - vit/iron fum/folic ac ( 1 + 1 ORAL) Take by mouth. - albuterol HFA (VENTOLIN HFA) 90 mcg/actuation inhaler Inhale 2 Puffs as instructed every 4 hours as needed for wheezing/shortness of breath. Problem List As Of Date 04/20/2025 Noted Resolved TBI (traumatic brain injury) ([facility]) [S06.9XAA] 05/06/2022 History of depression [Z86.59] 05/06/2022 Migraine with aura, not intractable, without st*05/06/2022 BMI 29.0-29.9,adult [Z68.29] 05/06/2022 Vasovagal syncope [R55] 09/10/2023 GERD (gastroesophageal reflux disease) [K21.9] 09/10/2023 10/27/2024 Asthma affecting in first trimester [*10/27/2024 Supervision of high risk in third tri*10/27/2024 History of eating disorder [Z86.59] 10/27/2024 Nausea and vomiting in (HCC) [O21.9] 10/27/2024 03/16/2025 Constipation during in first trimeste*10/27/2024 03/16/2025 Exercise-induced asthma [J45.990] 12/29/2024 Encounter for supervision of normal i*02/16/2025 03/16/2025 Encounter Status:Closed by GOLDIE OQUENDO on 04/20/25 Normal [facility] CBC W Auto Differential pane l (Bld)on 03-16-2025 Basophils (Bld) [#/Vol] 0.04 10*3/uL Normal <0.11 [facility] Comment on above: Order Comment: Speci men Type: BLOOD SPECIMENOrdering Facility: [facility] Address: [address] [place] [address] Performed By: #### 5 7021-8 ####[facility] [id number] [place] [address] [place] Basophils/100 WBC (Bld) 0.3 % Normal C [facility] Comment on above: Order Comment: Speci men Type: BLOOD SPECIMENOrdering Facility: [facility] Address: [address] [place] [address] Performed By: #### 5 7021-8 ####[facility] [id number] [place] [address] [place] Differential cell count method Nom (Bld) Auto Normal [facility] Comment on above: Order Comment: Speci men Type: BLOOD SPECIMENOrdering Facility: [facility] Address: [address] [place] [address] Performed By: #### 5 7021-8 ####[facility]CL[facility] [id number] [place] [address] [place] Eosinophils (Bld) [#/Vol] 0.07 10*3/uL Normal <0.46 [facility] Comment on above: Order Comment: Speci men Type: BLOOD SPECIMENOrdering Facility: [facility] Address: [address] [place] [address] Performed By: #### 5 7021-8 ####[facility] BEACHWRACHELLIA [id number] [place] [address] [place] Eosinophils/100 WBC (Bld) 0.5 % Normal [facility] Comment on above: Order Comment: Speci men Type: BLOOD SPECIMENOrdering Facility: [facility] Address: [address] [place] [address] Performed By: #### 5 7021-8 ####[facility]ID[facility]LL[facility] [id number] [place] [address] [place] Erythrocyte distribution width (RBC) [Ratio] 13.1 % Normal 11.5-15.0 [facility] Comment on above: Order Comment: Speci men Type: BLOOD SPECIMENOrdering Facility: [facility] Address: [address] [place] [address] Performed By: #### 5 7021-8 ####[facility] BEACHWNCLIA [id number] [place] [address] [place] Hematocrit (Bld) [Volume fraction] 34.3 % Low 36.0-46.0 [facility] Comment on above: Order Comment: Speci men Type: BLOOD SPECIMENOrdering Facility: [facility] Address: [address] [place] [address] Performed By: #### 5 7021-8 ####[facility]IDE[facility] [id number] [place] [address] [place] Hemoglobin (Bld) [Mass/Vol] 11.6 g/dL Normal 11.5-15.5 [facility] Comment on above: Order Comment: Speci men Type: BLOOD SPECIMENOrdering Facility: [facility] Address: [address] [place] [address] Performed By: #### 5 7021-8 ####[facility] [id number] [place] [address] [place] Immature granulocytes (Bld) [#/Vol] 0.15 10*3/uL High <0.10 [facility] Comment on above: Order Comment: Speci men Type: BLOOD SPECIMENOrdering Facility: [facility] Address: [address] [place] [address] Performed By: #### 5 7021-8 ####[facility] [id number] [place] [address] [place] Immature granulocytes/100 WBC (Bld) 1.2 % Normal [facility] Comment on above: Order Comment: Speci men Type: BLOOD SPECIMENOrdering Facility: [facility] Address: [address] [place] [address] Performed By: #### 5 7021-8 ####[facility] [id number] [place] [address] [place] Lymphocytes (Bld) [#/Vol] 1.53 10*3/uL Normal 1.00-4.0 0 [facility] Comment on above: Order Comment: Speci men Type: BLOOD SPECIMENOrdering Facility: [facility] Address: [address] [place] [address] Performed By: #### 5 7021-8 ####[facility] RIVERSIDENCLIA [id number] [place] [address] [place] Lymphocytes/100 WBC (Bld) 11.9 % Normal [facility] Comment on above: Order Comment: Speci men Type: BLOOD SPECIMENOrdering Facility: [facility] Address: [address] [place] [address] Performed By: #### 5 7021-8 ####[facility] [id number] [place] [address] [place] MCH (RBC) [Entitic mass] 28.6 pg Normal 26.0-34.0 [facility] Comment on above: Order Comment: Speci men Type: BLOOD SPECIMENOrdering Facility: [facility] Address: [address] [place] [address] Performed By: #### 5 7021-8 ####[facility] [id number] [place] [address] [place] MCHC (RBC) [Mass/Vol] 33.8 g/dL Normal 30.5-36.0 [facility] Comment on above: Order Comment: Speci men Type: BLOOD SPECIMENOrdering Facility: [facility] Address: [address] [place] [address] Performed By: #### 5 7021-8 ####[facility] [id number] [place] [address] [place] MCV (RBC) [Entitic vol] 84.5 fL Normal 80.0-100.0 [facility] Comment on above: Order Comment: Speci men Type: BLOOD SPECIMENOrdering Facility: [facility] Address: [address] [place] [address] Performed By: #### 5 7021-8 ####[facility] [id number] [place] [address] [place] Monocytes (Bld) [#/Vol] 0.86 10*3/uL Normal <0.87 [facility] Comment on above: Order Comment: Speci men Type: BLOOD SPECIMENOrdering Facility: [facility] Address: [address] [place] [address] Performed By: #### 5 7021-8 ####[facility]ILLWNCLIA [id number] [place] [address] [place] Monocytes/100 WBC (Bld) 6.7 % Normal [facility] Comment on above: Order Comment: Speci men Type: BLOOD SPECIMENOrdering Facility: [facility] Address: [address] [place] [address] Performed By: #### 5 7021-8 ####[facility]IVERSIDENCLIA [id number] [place] [address] [place] Neutrophils (Bld) [#/Vol] 10.21 10*3/uL High 1.45-7. 50 [facility] Comment on above: Order Comment: Speci men Type: BLOOD SPECIMENOrdering Facility: [facility] Address: [address] [place] [address] Performed By: #### 5 7021-8 ####[facility]IVERSIDENCLIA [id number] [place] [address] [place] Neutrophils/100 WBC (Bld) 79.4 % Normal [facility] Comment on above: Order Comment: Speci men Type: BLOOD SPECIMENOrdering Facility: [facility] Address: [address] [place] [address] Performed By: #### 5 7021-8 ####[facility]CL[facility] [id number] [place] [address] [place] Nucleated RBC (Bld) [#/Vol] 10*3/uL Normal <0.01 [facility] Comment on above: Order Comment: Speci men Type: BLOOD SPECIMENOrdering Facility: [facility] Address: [address] [place] [address] Performed By: #### 5 7021-8 ####[facility]ERSIDENCLIA [id number] [place] [address] [place] Nucleated RBC/100 WBC (Bld) [Ratio] 0.0 /100 WBC Normal [facility] Comment on above: Order Comment: Speci men Type: BLOOD SPECIMENOrdering Facility: [facility] Address: [address] [place] [address] Performed By: #### 5 7021-8 ####[facility] [id number] [place] [address] [place] Platelet mean volume (Bld) [Entitic vol] 9.3 fL Normal 9.0-12.7 [facility] Comment on above: Order Comment: Speci men Type: BLOOD SPECIMENOrdering Facility: [facility] Address: [address] [place] [address] Performed By: #### 5 7021-8 ####[facility] [id number] [place] [address] [place] Platelets (Bld) [#/Vol] 254 10*3/uL Normal 150-400 [facility] Comment on above: Order Comment: Speci men Type: BLOOD SPECIMENOrdering Facility: [facility] Address: [address] [place] [address] Performed By: #### 5 7021-8 ####[facility] [id number] [place] [address] [place] RBC (Bld) [#/Vol] 4.06 10*6/uL Normal 3.90-5.20 [facility] Comment on above: Order Comment: Speci men Type: BLOOD SPECIMENOrdering Facility: [facility] Address: [address] [place] [address] Performed By: #### 5 7021-8 ####[facility] [id number] [place] [address] [place] WBC (Bld) [#/Vol] 12.86 10*3/uL High 3.70-11.00 [facility] Comment on above: Order Comment: Speci men Type: BLOOD SPECIMENOrdering Facility: [facility] Address: [address] [place] [address] Performed By: #### 5 7021-8 ####[facility] [id number] [place] [address] [place] GESTATIONAL GLUCOSE SCREEN, 1-HOUR, 50 GRAM, NON-FASTINGon 03-16-2025 Glucose [Mass/Vol] 72 mg/dL Low 74-[address] [facility] Comment on above: Order Comment: Sami ok Type: BLOOD SPECIMEN [facility] Address: [address] [place] [address] Result Comment: er [place] [employer] of [employer] (Tim/Jamal) guidelines state a gestational diabetes mellitus positive screen is made, in women not previously diagnosed with overt diabetes, when the 1 hr plasma glucose level is equal to or above 140 mg/dL. The [facility] [employer] and [facility] recommends a 135 mg/dL cutoff. Performed By: #### L [id number] #### [facility] CLIA [id number] [address] [place] [address] [place] Reagin and Treponema pallidu m IgG and IgM [Interp]on 03-16-2025 T. pallidum IgG+IgM IA Ql (S) Non-Reactive Normal Nonreactive [facility] Comment on above: Order Comment: Speci men Type: BLOOD SPECIMENOrdering Facility: [facility] Address: [address] [place] [address] Performed By: #### 7 3752-8 ####[facility] [id number] [place] [address] [place] Reagin+T pallidum IgG+IgM Se rPl-Impon 03-16-2025 Reagin and Treponema pallidum IgG and IgM [Interp] Cannot exclude recent Treponemal infection if specimen collected within 7-10 days after appearance of suspect lesions or 2-3 weeks after an exposure. Clinical correlation is required. Normal [facility] Comment on above: Order Comment: Speci men Type: BLOOD SPECIMENOrdering Facility: [facility] Address: [address] [place] [address] Performed By: #### 7 3752-8 ####[facility]IA [id number] [facility] [address] [facility] CNOVon 02-23-2025 CNOV Office Visit ([facility]) ---- IVANIA DONALDLEY Raul ([id number]) 03 [facility] Date Time Provider Department 02/23/25 2:00 PM KAMRAN GUTHRIE IN[facility] During your visit today, we recorded the following information about you: Temperature Pulse Blood pressure Weight 98.7 degrees 107/minute 90/46 87.2 kg Kamran Guthrie APRN.RADIO PROGRAM DIRECTOR 02/23/2025 2:11 PM Signed SUBJECTIVE Howard Donald is a 20 year old female here today for acute concern. Chief Complaint Patient presents with: Nasal Congestion: nasal drainage which is clear since February 13 post nasal drip with sore throat about 1 week cough dry non productive HPI Howard Donald is a 20 year old female. She is an established patient of Donte Singleton MD. Here today for acute concern. Issues with nasal congestion, post-nasal, sore throat. Cough that is dry and not productive. 25 weeks and 1 day . Onset was on February 13 but the last week it worsened. Issues with sinus congestion, sinus pressure and pain. Ear pressure too. Her medications were reviewed today and her list is now up to date. Medications Current Outpatient Medications Medication Sig triamcinolone (KENALOG) 0.025 % ointment Apply to affected area two times a day. vit/iron fum/folic ac ( 1 + 1 ORAL) Take by mouth. albuterol HFA (VENTOLIN HFA) 90 mcg/actuation inhaler Inhale 2 Puffs as instructed every 4 hours as needed for wheezing/shortness of breath. ondansetron (ZOFRAN) 4 mg tablet Take 1 tablet by mouth every 8 hours as needed for nausea/vomiting. rizatriptan (MAXALT) 10 mg tablet Take 1 tablet (10 mg) by mouth as needed. May repeat in 2 hours if needed amoxicillin-clavula jame potassium (AUGMENTIN) 875-125 mg per tablet Take 1 tablet by mouth two times a day for 10 days. No current facility-administer ed medications for this visit. ALLERGIES Allergen Reactions Cats Itching Dust Itching, Other: See Comments Grass Pollen Rash Sneezing and Rash ACTIVE PROBLEM LIST Encounter for Supervision of Normal in Second Trimester ([facility]) - 02/16/2025 Exercise-Induced Asthma ([facility]) - 12/29/2024 Asthma Affecting in First Trimester ([facility]) - 10/27/2024 Comment: October 27, 2024 Uses albuterol PRN. No Hemabate with delivery. Alli Forrester, NUTRITIONAL SERVICES COOK.RADIO PROGRAM DIRECTOR Supervision of High Risk in Second Trimester ([facility]) - 10/27/2024 Comment: Care Checklist Vaccines: [] Flu vaccine [] declined [] RSV vaccine 32 0/7 - 36 6/7 (Jun - Nov) [] declined [] COVID vaccine [] declined [] TDaP 27-36 [] declined First trimester: [x] Dating US [] 1st tri labs [x] Pap smear [x] Carrier screening [] declined [x] NIPT screening [] declined [x] First trimester anatomy scan [] declined [x] universal ASA ordered (start 12w-16w) [] declined [] M Power Consult [] not indicated [] declined Second trimester: [] Anatomy scan [] Mode of Delivery - [] Feeding - [] Pump ordered [] Diabetes screen [] CBC, RPR [] Behavioral Health Screening Third trimester (28-30 weeks): [] Consent [] Contraception [] Copy Center Specialist [] TeamBirth handout Third trimester (36-40 weeks): [] GBS [] Presentation - [] Scheduled [] yes - Hibiclens, pre-op instructions, CBC, TANDS ordered [] no [] HANDP [] Preferences worksheet [] Scanned in EMR History of Eating Disorder - 10/27/2024 Comment: October 27, 2024 Diagnosed at age 18-19 years old. Has never been on medication.Has struggled with restriction in the past. Has been eating well throughout so far. Has seen counseling through taoism in the past. No concerns with mood at this time. Mental health resources provided. Alli Forrester APRN.WILVER Nausea and Vomiting in ([facility]) - 10/27/2024 Comment: 10/27/24 Vitamin B6 doses reviewed. To notify if prescription is needed. Alli Forrester APRN.CNP Constipation During in First Trimester ([facility]) - 10/27/2024 Comment: October 27, 2024 Discussed Colace and increased hydration. Alli Forrester APRN.WILVER Vasovagal Syncope - 09/10/2023 Tbi (Traumatic Brain Injury) ([facility]) - 05/06/2022 History of Depression - 05/06/2022 Migraine With Aura, Not Intractable, Without Status Migrainosus - 05/06/2022 Comment: October 27, 2024 Has been prescribed Rizatriptan in the past. Recommend avoiding during . Discussed Magnesium 400 mg per day for headache prevention and to notify if migraines are becoming an issue. Alli Forrester APRN.RADIO PROGRAM DIRECTOR Bmi 29.0-29.9,Adult - 05/06/2022 Social History Tobacco Use Smoking status: Never Smokeless tobacco: Never Vaping Use Vaping status: Never Used Substance Use Topics Alcohol use: Not Currently Comment: rare alcohol use, not while Drug use: Never Review of Systems HENT: Positive for congestion, postnasal drip, sinus pressure and sinus pain. Respiratory: (more content not included)... Normal [facility] CNOVon 02-20-2025 CNOV Office Visit ([facility]) ---- HOWARD DONALD ([id number]) 03 [facility] Date Time Provider Department 02/20/25 9:30 AM CHRIS ALFORD [facility] During your visit today, we recorded the following information about you: Temperature Pulse Respiration Blood pressure 98.6 degrees 101/minute 18/minute 110/66 Weight 87.3 kg Chris Alford PA-C 02/20/2025 9:50 AM Signed This note was created using [employer]. Subjective Howard Donald is a 20 year old female. Patient is a 20-year-old female who complains of congestion and cough that she has been experiencing for the past 5 days. Patient reports sore throat but denies ear pain. Patient denies fever, chills or myalgia. Patient is at 25 weeks gestation today. Sinus Problem Associated symptoms include congestion, coughing and a sore throat. Review of Systems HENT: Positive for congestion and sore throat. Respiratory: Positive for cough. All other systems reviewed and are negative. Objective BP 110/66 Pulse 101 Temp 37 ?C (98.6 ?F) (Tympanic) Resp 18 Wt 87.3 kg (192 lb 7.4 oz) LMP 08/31/2024 SpO2 98% BMI 31.30 kg/m? Physical Exam Vitals and nursing note reviewed. Constitutional: Appearance: Normal appearance. She is normal weight. HENT: Head: Normocephalic and atraumatic. Right Ear: Tympanic membrane, ear canal and external ear normal. Left Ear: Tympanic membrane, ear canal and external ear normal. Nose: Nose normal. Mouth/Throat: Mouth: Mucous membranes are moist. Pharynx: Oropharynx is clear. Eyes: Extraocular Movements: Extraocular movements intact. Conjunctiva/sclera: Conjunctivae normal. Pupils: Pupils are equal, round, and reactive to light. Cardiovascular: Rate and Rhythm: Normal rate and regular rhythm. Pulses: Normal pulses. Heart sounds: Normal heart sounds. Pulmonary: Effort: Pulmonary effort is normal. Breath sounds: Normal breath sounds. Musculoskeletal: Cervical back: Normal range of motion and neck supple. Skin: General: Skin is warm and dry. Capillary Refill: Capillary refill takes less than 2 seconds. Neurological: General: No focal deficit present. Mental Status: She is alert and oriented to person, place, and time. Psychiatric: Mood and Affect: Mood normal. Behavior: Behavior normal. Thought Content: Thought content normal. Judgment: Judgment normal. Assessment and Plan Physical exam findings as noted above. Rapid strep test is negative. Supportive care instructions were discussed and the patient verbalizes excellent understanding of same. CLINICAL IMPRESSION: Acute URI ASSESSMENT/PLAN: 1. Sore throat - ICD9: 462, ICD10: J02.9 (primary diagnosis) - STREP A MOLECULAR (POC) 2. Acute URI - ICD9: 465.9, ICD10: J06.9 MDM Amount and/or Complexity of Data Reviewed Clinical lab tests: ordered and reviewed Risk of Complications, Morbidity, and/or Mortality Presenting problems: low Diagnostic procedures: low Management options: ryley Alford PA-C Referring Provider: SELF [200] Allergies As of Date: 02/20/2025 Noted Allergy Reaction CATS 01/06/2023 9 - Itching DUST 01/06/2023 9 - Itching 14 - Other: See Comments GRASS POLLEN 03/14/2021 2 - Rash Comments: Sneezing and Rash Date Reviewed: 02/20/2025 Reviewed by: Serena Reyes LPN - Fully Assessed Reason for Visit: Sinus Problem [99] Cmt: Sinus and congestion x 1 week Primary Visit Diagnosis:Sore throat [J02.9] Other Visit Diagnosis:Acute URI [J06.9] Order(s):STREP A MOLECULAR (POC) [[id number]] Order #: [id number] #:[id number] Prescriptions as of 02/20/2025 - triamcinolone (KENALOG) 0.025 % ointment Apply to affected area two times a day. - aspirin, enteric coated (ECOTRIN LOW STRENGTH) 81 mg EC tablet Take 1 tablet by mouth once daily. - vit/iron fum/folic ac ( 1 + 1 ORAL) Take by mouth. - albuterol HFA (VENTOLIN HFA) 90 mcg/actuation inhaler Inhale 2 Puffs as instructed every 4 hours as needed for wheezing/shortness of breath. - ondansetron (ZOFRAN) 4 mg tablet Take 1 tablet by mouth every 8 hours as needed for nausea/vomiting. - rizatriptan (MAXALT) 10 mg tablet Take 1 tablet (10 mg) by mouth as needed. May repeat in 2 hours if needed Problem List As Of Date 02/20/2025 Noted Resolved TBI (traumatic brain injury) (HCC) [S06.9XAA] 05/06/2022 History of depression [Z86.59] 05/06/2022 Migraine with aura, not intractable, without st*05/06/2022 BMI 29.0-29.9,adult [Z68.29] 05/06/2022 Vasovagal syncope [R55] 09/10/2023 GERD (gastroesophageal reflux disease) [K21.9] 09/10/2023 10/27/2024 Asthma affecting in first trimester [*10/27/2024 Supervision of high risk in second tr*10/27/2024 History of eating disorder [Z86.59] 10/27/2024 Nausea and vomiting in [O21.9] 10/27/2024 Constipation during in first trimeste*10/13 (more content not included)... Normal [facility] STREP A MOLECULAR (POC)on Procedural Control Valid [facility] Strep A (POCT) Negative Negative [facility] Examination level ultrasound on 01-21-2025 Indication Standard anatomic survey Impression REMOTE READ The patient is referred for a standard anatomic survey. - Single, live, intrauterine . - biometry is consistent with the established gestational age. - No malformations were visualized on a complete standard anatomic survey. - The amniotic fluid volume is normal amount. - The placenta is posterior, fundal. - The Transabdominal cervical length measures 31.3 mm with no evidence of funneling or other dynamic changes. - Not all structural malformations can be detected by ultrasound examination. Recommendations Additional follow-up as clinically indicated. Maternal Assessment Height 170 cm Height (ft) 5 ft Height (in) 7 in Physical Exam Initial weight (lb) 180 lb Initial BMI 28.19 kg/m Maternal assessment other: 1 Para 0 Method Transabdominal ultrasound examination. View: Adequate visualization [place] . Number of fetuses: 1 Dating LMP on: 08/31/2024 GA by LMP 20 w + 3 d COREY by LMP: 06/07/2025 GA by prior assessment 20 w + 3 d COREY by prior assessment: 06/07/2025 Ultrasound examination on: 01/21/2025 GA by U/S based upon: AC, BPD, Femur, HC GA by U/S 21 w + 3 d COREY by U/S: 05/31/2025 Assigned: based on stated COREY, selected on 01/21/2025 Assigned GA 20 w + 3 d Assigned COREY: 06/07/2025 General Evaluation Cardiac activity present. FHR 141 bpm. movements: present. Presentation: cephalic Placenta: Placental site: posterior, fundal Umbilical cord: Cord vessels: 3 vessel cord Amniotic fluid: Amount of AF: normal amount. MVP 5.0 cm Growth Overview Exam date GA BPD (mm) HC (mm) AC (mm) FL (mm) HL (mm) EFW (g) 01/21/2025 20w 3d 52.2 93% 188.3 71% 168 85% 34.2 75% 34.7 92% 413 87% Biometry Standard BPD 52.2 mm 21w 6d 93% Hadlock OFD 65.7 mm 20w 5d 87% Nicolaides HC 188.3 mm 21w 1d 71% Liam Cerebellum tr 22.4 mm 20w 6d 85% Hill Nuchal fold 3.8 mm AC 168.0 mm 21w 6d 85% Hadlock Femur 34.2 mm 21w 0d 75% Liam Humerus 34.7 mm 21w 6d 92% Liam EFW 413 g 21w 1d 87% Hadlock EFW (lb) 0 lb EFW (oz) 15 oz EFW by: Hadlock (HC-AC-FL) Extended Suction Operator 6.3 mm CM 5.9 mm 75% Nicolaides Extremities / Bony Struc FL / HC 0.18 19% [place] Other Structures FHR 141 bpm Anatomy Cranium: normal Lateral ventricles: normal Choroid plexus: normal Midline falx: normal Cavum septi pellucidi: normal Cerebellum: normal Cisterna magna: normal Head / Neck Vermis: Normal but not required for a standard anatomy exam Neck: Normal but not required for a standard anatomy exam Nuchal fold: Normal but not required for a standard anatomy exam Lips: normal Profile: Normal but not required for a standard anatomy exam Nose: Normal but not required for a standard anatomy exam Face Maxilla: Normal but not required for a standard anatomy exam Mandible: Normal but not required for a standard anatomy exam Orbits: Normal but not required for a standard anatomy exam Lens: Normal but not required for a standard anatomy exam 4-chamber view: normal RVOT view: normal LVOT view: normal 3-vessel view: normal 0-ghlrgr-cahbrzh view: normal Heart / Thorax Situs: situs solitus (normal) Aortic arch view: Normal but not required for a standard anatomy exam SVC: Normal but not required for a standard anatomy exam IVC: Normal but not required for a standard anatomy exam Cardiac axis: normal Rt lung: Normal but not required for a standard anatomy exam Lt lung: Normal but not required for a standard anatomy exam Diaphragm: Normal but not required for a standard anatomy exam Cord insertion: normal Stomach: normal Kidneys: normal Bladder: normal Genitals: normal Abdomen Abdom. wall: normal Cervical spine: normal Thoracic spine: normal Lumbar spine: normal Sacral spine: normal Arms: normal Legs: normal Rt upper arm: normal Rt forearm: normal Rt hand: normal Rt fingers: normal Lt upper arm: normal Lt forearm: normal Lt hand: normal Lt fingers: normal Rt upper leg: normal Rt lower leg: normal Rt foot: normal Lt upper leg: normal Lt lower leg: normal Lt foot: normal sex: male Wants to know sex: yes Maternal Structures Uterus / Cervix Uterus: Visualized Cervix: Visualized Approach: Transabdominal Cervical length 31.3 mm Other: Patient declined transvaginal ultrasound for cervical length. Ovaries / Tubes / Adnexa Rt ovary: Visualized Lt ovary: Visualized Performed By: Destiney Blunt RDMS, RVT Read By: Pinky Purdy M.D. MATERNAL MEDICINE [facility] Radiology Study [facility]narrative[facility] CBC W Auto Differential pane l (Bld)on 12-29-2024 Basophils (Bld) [#/Vol] 10*3/uL Normal <0.11 [facility] Comment on above: Order Comment: Speci men Type: BLOOD SPECIMEN Ordering Facility: [facility] Address: [address] [place] [address] Performed By: #### 5 7021-8 #### [facility] CLIA [id number] [address] [place] [address] [place] [address] [place] Basophils/100 WBC (Bld) 0.2 % Normal [facility] Comment on above: Order Comment: Speci men Type: BLOOD SPECIMEN Ordering Facility: [facility] Address: [address] [place] [address] Performed By: #### 5 7021-8 #### [facility] CLIA [id number] [address] [place] [address] [place] Differential cell count method Nom (Bld) Auto Normal [facility] Comment on above: Order Comment: Speci men Type: BLOOD SPECIMEN Ordering Facility: [facility] Address: [address] [place] [address] Performed By: #### 5 7021-8 #### [facility] CLIA [id number] [address] [place] [address] [place] Eosinophils (Bld) [#/Vol] 0.06 10*3/uL Normal <0.46 [facility] Comment on above: Order Comment: Speci men Type: BLOOD SPECIMEN Ordering Facility: [facility] Address: [address] [place] [address] Performed By: #### 5 7021-8 #### [facility] CLIA [id number] [address] [place] [address] [place] Eosinophils/100 WBC (Bld) 0.6 % Normal [facility] Comment on above: Order Comment: Speci men Type: BLOOD SPECIMEN Ordering Facility: [facility] Address: [address] [place] [address] Performed By: #### 5 7021-8 #### [facility] CLIA [id number] [address] [place] [address] [place] Erythrocyte distribution width (RBC) [Ratio] 13.6 % Normal 11.5-15.0 [facility] Comment on above: Order Comment: Speci men Type: BLOOD SPECIMEN Ordering Facility: [facility] Address: [address] [place] [address] Performed By: #### 5 7021-8 #### [facility] CLIA [id number] [address] [place] [address] [place] Hematocrit (Bld) [Volume fraction] 36.9 % Normal 36.0-46.0 [facility] Comment on above: Order Comment: Speci men Type: BLOOD SPECIMEN Ordering Facility: [facility] Address: [address] [place] [address] Performed By: #### 5 7021-8 #### [facility] CLIA [id number] [address] [place] [address] [place] Hemoglobin (Bld) [Mass/Vol] 12.1 g/dL Normal 11.5-15.5 [facility] Comment on above: Order Comment: Speci men Type: BLOOD SPECIMEN Ordering Facility: [facility] Address: [address] [place] [address] Performed By: #### 5 7021-8 #### [facility] CLIA [id number] [address] [place] [address] [place] Immature granulocytes (Bld) [#/Vol] 0.06 10*3/uL Normal <0.10 [facility] Comment on above: Order Comment: Speci men Type: BLOOD SPECIMEN Ordering Facility: [facility] Address: [address] [place] [address] Performed By: #### 5 7021-8 #### [facility] CLIA [id number] [address] [place] [address] [place] Immature granulocytes/100 WBC (Bld) 0.6 % Normal [facility] Comment on above: Order Comment: Speci men Type: BLOOD SPECIMEN Ordering Facility: [facility] Address: [address] [place] [address] Performed By: #### 5 7021-8 #### [facility] CLIA [id number] [address] [place] [address] [place] Lymphocytes (Bld) [#/Vol] 1.77 10*3/uL Normal 1.00-4.0 0 [facility] Comment on above: Order Comment: Speci men Type: BLOOD SPECIMEN Ordering Facility: [facility] Address: [address] [place] [address] Performed By: #### 5 7021-8 #### [facility] CLIA [id number] [address] [place] [address] [place] Lymphocytes/100 WBC (Bld) 18.6 % Normal [facility] Comment on above: Order Comment: Speci men Type: BLOOD SPECIMEN Ordering Facility: [facility] Address: [address] [place] [address] Performed By: #### 5 7021-8 #### [facility] CLIA [id number] [address] [place] [address] [place] MCH (RBC) [Entitic mass] 28.7 pg Normal 26.0-34.0 [facility] Comment on above: Order Comment: Speci men Type: BLOOD SPECIMEN Ordering Facility: [facility] Address: [address] [place] [address] Performed By: #### 5 7021-8 #### [facility] CLIA [id number] [address] [place] [address] [place] MCHC (RBC) [Mass/Vol] 32.8 g/dL Normal 30.5-36.0 [facility] Comment on above: Order Comment: Speci men Type: BLOOD SPECIMEN Ordering Facility: [facility] Address: [address] [place] [address] Performed By: #### 5 7021-8 #### [facility] CLIA [id number] [address] [place] [address] [place] MCV (RBC) [Entitic vol] 87.6 fL Normal 80.0-100.0 C [facility] Comment on above: Order Comment: Speci men Type: BLOOD SPECIMEN Ordering Facility: [facility] Address: [address] [place] [address] Performed By: #### 5 7021-8 #### [facility] CLIA [id number] [address] [place] [address] [place] Monocytes (Bld) [#/Vol] 0.52 10*3/uL Normal <0.87 [facility] Comment on above: Order Comment: Speci men Type: BLOOD SPECIMEN Ordering Facility: [facility] Address: [address] [place] [address] Performed By: #### 5 7021-8 #### [facility] CLIA [id number] [address] [place] [address] [place] Monocytes/100 WBC (Bld) 5.5 % Normal [facility] Comment on above: Order Comment: Speci men Type: BLOOD SPECIMEN Ordering Facility: [facility] Address: [address] [place] [address] Performed By: #### 5 7021-8 #### [facility] CLIA [id number] [address] [place] [address] [place] Neutrophils (Bld) [#/Vol] 7.10 10*3/uL Normal 1.45-7.5 0 [facility] Comment on above: Order Comment: Speci men Type: BLOOD SPECIMEN Ordering Facility: [facility] Address: [address] [place] [address] Performed By: #### 5 7021-8 #### [facility] CLIA [id number] [address] [place] [address] [place] Neutrophils/100 WBC (Bld) 74.5 % Normal [facility] Comment on above: Order Comment: Speci men Type: BLOOD SPECIMEN Ordering Facility: [facility] Address: [address] [place] [address] Performed By: #### 5 7021-8 #### [facility] CLIA [id number] [address] [place] [address] [place] Nucleated RBC (Bld) [#/Vol] 10*3/uL Normal <0.01 [facility] Comment on above: Order Comment: Speci men Type: BLOOD SPECIMEN Ordering Facility: [facility] Address: [address] [place] [address] Performed By: #### 5 7021-8 #### [facility] CLIA [id number] [address] [place] [address] [place] Nucleated RBC/100 WBC (Bld) [Ratio] 0.0 /100 WBC Normal [facility] Comment on above: Order Comment: Speci men Type: BLOOD SPECIMEN Ordering Facility: [facility] Address: [address] [place] [address] Performed By: #### 5 7021-8 #### [facility] CLIA [id number] [address] [place] [address] [place] Platelet mean volume (Bld) [Entitic vol] 9.8 fL Normal 9.0-12.7 [facility] Comment on above: Order Comment: Speci men Type: BLOOD SPECIMEN Ordering Facility: [facility] Address: [address] [place] [address] Performed By: #### 5 7021-8 #### [facility] CLIA [id number] [address] [place] [address] [place] Platelets (Bld) [#/Vol] 293 10*3/uL Normal 150-400 [facility] Comment on above: Order Comment: Speci men Type: BLOOD SPECIMEN Ordering Facility: [facility] Address: [address] [place] [address] Performed By: #### 5 7021-8 #### [facility] CLIA [id number] [address] [place] [address] [place] RBC (Bld) [#/Vol] 4.21 10*6/uL Normal 3.90-5.20 [facility] Comment on above: Order Comment: Speci men Type: BLOOD SPECIMEN Ordering Facility: [facility] Address: [address] [place] [address] Performed By: #### 5 7021-8 #### [facility] IA [id number] [address] [place] [address] [place] WBC (Bld) [#/Vol] 9.53 10*3/uL Normal 3.70-11.00 [facility] Comment on above: Order Comment: Speci men Type: BLOOD SPECIMEN Ordering Facility: [facility] Address: [address] [place] [address] Performed By: #### 5 7021-8 #### [facility] CLIA [id number] [address] [place] [address] [place] CNOVon 12-29-2024 CNOV Office Visit (FAMPWS) ---- DEREKDARYLHOWARD ([id number]) 03 [facility] Date Time Provider Department 12/29/24 10:40 AM [facility] During your visit today, we recorded the following information about you: Pulse Blood pressure Weight Height 90/minute 98/58 82.7 kg 1.67 m Dotne Singleton MD 12/29/2024 11:54 AM Signed Chief Complaint Patient presents with: Establish Care HPI Howard Carter Odilon is a 19 year old female who presents here today for Above Complaints. Previous PCP Dr. Kim Silvestre with last OV 02/2024. Needs physical today and forms completed. No concerns. Patient using albuterol inhaler before exercise and symptoms have been much improved. Denies repeat ER visits or hospitalizations. at 17W1d. . Last OV with OB 1 week ago reviewed. On vitamin. No concerns today. Baby boy they plan to name Shea. Has history of migraines treated with Maxalt PRN and zofran, but has not had any headaches in about 10 months. Triggers include caffeine use. No concerns today. Not taking anything for history of GERD. Denies recent symptoms. Past medical history, appointments, medications, allergies reviewed. Previous Medical History PAST MEDICAL HISTORY Diagnosis Date Asthma Concussion 2019 Depression GERD (gastroesophageal reflux disease) 09/10/2023 Migraines TBI (traumatic brain injury) ([facility]) 2019 fall down stairs Vasovagal syncope Previous Surgical History PAST SURGICAL HISTORY Procedure Laterality Date TONSILLECTOMY AND ADENOIDECTOMY TOOTH EXTRACTION Family History FAMILY HISTORY Problem Relation Age of Onset Hypertension Mother Diabetes Father Glaucoma Father No Known Problems Brother No Known Problems Brother Stroke Maternal Grandmother other (Pulmonary embolism) Maternal Grandmother other (heart murmur) Maternal Grandmother other (a fib) Maternal Uncle Cataract No Family History Detached Retina No Family History Macular Degen No Family History Blindness No Family History Amblyopia No Family History Strabismus No Family History Patient Allergies ALLERGIES Allergen Reactions Amoxicillin Other: See Comments Was given so many times as a child it stopped working- so they stopped giving to her Cats Itching Dust Itching, Other: See Comments Grass Pollen Rash Sneezing and Rash Current Medications Current Outpatient Medications on File Prior to Visit Medication Sig triamcinolone (KENALOG) 0.025 % ointment Apply to affected area two times a day. aspirin, enteric coated (ECOTRIN LOW STRENGTH) 81 mg EC tablet Take 1 tablet by mouth once daily. vit/iron fum/folic ac ( 1 + 1 ORAL) Take by mouth. albuterol HFA (VENTOLIN HFA) 90 mcg/actuation inhaler Inhale 2 Puffs as instructed every 4 hours as needed for wheezing/shortness of breath. ondansetron (ZOFRAN) 4 mg tablet Take 1 tablet by mouth every 8 hours as needed for nausea/vomiting. rizatriptan (MAXALT) 10 mg tablet Take 1 tablet (10 mg) by mouth as needed. May repeat in 2 hours if needed No current facility-administer ed medications on file prior to visit. Social History Social History Tobacco Use Smoking status: Never Smokeless tobacco: Never Vaping Use Vaping status: Never Used Substance Use Topics Alcohol use: Not Currently Drug use: Never Review of Symptoms REVIEW OF SYSTEMS GENERAL: No weight loss, malaise or fevers HEENT: Negative for frequent or significant headaches, No changes in hearing or vision, no nose bleeds or other nasal problems NECK: Negative for lumps, goiter, pain and significant neck swelling RESPIRATORY: Negative for cough, hemoptysis, wheezing, COPD, dyspnea or shortness of breath CARDIOVASCULAR: Negative for chest pain, leg swelling, hypertension, CHF or palpitations GI: No nausea, vomiting, or diarrhea : No history of dysuria, frequency or incontinence FERRY CAPTAIN: Negative for abnormal vaginal bleeding, abnormal vaginal discharge MUSCULOSKELETAL: Negative for joint pain or swelling, back pain or muscle pain SKIN: Negative for lesions, rash, and itching PSYCH: Negative for sleep disturbance, mood disorder and recent psychosocial stressors HEMATOLOGY/LYMPHOLO GY: Negative for prolonged bleeding, bruising easily or swollen nodes ENDOCRINE: Negative for cold or heat intolerance, polyuria, polydipsia and goiter NEURO: No history of headaches, syncope, paralysis, seizures or tremors EXAM: BP 98/58 Pulse 90 Ht 167 cm (5' 5.75) Wt 82.7 kg (182 lb 6.4 oz) LMP 08/31/2024 SpO2 99% BMI 29.67 kg/m? General Appearance: Well appearing, alert, in no acute distress, well-hydrated, well nourished.. Skin: Skin color, texture, turgor normal, no suspicious rashes or lesions. Head: Normocephalic, no masses, lesions, tenderness or abnormalities. Eyes: Anicteric sclera. Pupils are equally round an (more content not included)... Normal [facility] Comprehensive metabolic 2000 panelon 12-29-2024 Albumin [Mass/Vol] 4.0 g/dL Normal 3.9-4.[address] [facility] Comment on above: Order Comment: Speci men Type: BLOOD SPECIMENOrdering Facility: [facility] Address: [address] [place] [address] Performed By: #### 2 4323-8, LIPNF ####[facility] [id number] [place] [address] [place] ALP [Catalytic activity/Vol] 62 U/L Normal 34-123 [facility] Comment on above: Order Comment: Speci men Type: BLOOD SPECIMENOrdering Facility: [facility] Address: [address] [place], [place] [address] Performed By: #### 2 4323-8, LIPNF ####[facility] [id number] [place] [id number] [place] ALT [Catalytic activity/Vol] 14 U/L Normal 7-38 [facility] Comment on above: Order Comment: Speci men Type: BLOOD SPECIMENOrdering Facility: [facility] Address: [address] [place], [place] [address] Performed By: #### 2 4323-8, LIPNF ####[facility] [id number] [place] [address] [place] Anion gap [Moles/Vol] 11 mmol/L Normal 8-15 [facility] Comment on above: Order Comment: Speci men Type: BLOOD SPECIMENOrdering Facility: [facility] Address: [address] [place] [address] Performed By: #### 2 4323-8, LIPNF ####[facility] [id number] [place] [id number] [place] AST [Catalytic activity/Vol] 16 U/L Normal 13-35 [facility] Comment on above: Order Comment: Speci men Type: BLOOD SPECIMENOrdering Facility: [facility] Address: [address] [place], [place] [address] Performed By: #### 2 4323-8, LIPNF ####[facility] [id number] [place] [id number] [place] Bilirubin [Mass/Vol] mg/dL Low 0.2-1.3 [facility] Comment on above: Order Comment: Speci men Type: BLOOD SPECIMENOrdering Facility: [facility] Address: [address] [place], [place] [address] Performed By: #### 2 4323-8, LIPNF ####[facility] [id number] [place] [id number] [place] Calcium [Mass/Vol] 9.5 mg/dL Normal 8.5-10.[address] [facility] Comment on above: Order Comment: Speci men Type: BLOOD SPECIMENOrdering Facility: [facility] Address: [address] [place] [address] Performed By: #### 2 4323-8, LIPNF ####[facility] [id number] [facility] [place] [id number] [place] Chloride [Moles/Vol] 104 mmol/L Normal 98-107 [facility] Comment on above: Order Comment: Speci men Type: BLOOD SPECIMENOrdering Facility: [facility] Address: [address] [place] [address] Performed By: #### 2 4323-8, LIPNF ####[facility] [id number] [place] [address] [place] CO2 [Moles/Vol] 21 mmol/L Low 22-30 [facility] Comment on above: Order Comment: Speci men Type: BLOOD SPECIMENOrdering Facility: [facility] Address: [address] [place] [address] Performed By: #### 2 4323-8, LIPNF ####[facility] [id number] [facility] [place] [id number] [place] Creatinine [Mass/Vol] 0.46 mg/dL Low 0.58-0.96 [facility] Comment on above: Order Comment: Speci men Type: BLOOD SPECIMENOrdering Facility: [facility] Address: [address] [place], [place] [address] Performed By: #### 2 4323-8, LIPNF ####[facility] [id number] [facility] [place] [id number] [place] Creatinine and Glomerular filtration rate.predicted panel (S/P/Bld) 140 mL/min/1.73m??? Normal >=60 [facility] Comment on above: Order Comment: Kacie euceda Type: BLOOD SPECIMENOrdering Facility: [facility] Address: [address] [place] [address] Result Comment: Kirsten mated Glomerular Filtration Rate (eGFR) is calculated using the 2020 CKD-EPI creatinine equation. This equation utilizes serum creatinine, sex, and age as parameters. The creatinine assay has traceable calibration to isotope dilution-mass spectrometry. Refer to KDIGO guidelines for clinical interpretation. In patients with unstable renal function, e.g. those with acute kidney injury, the eGFR may not accurately reflect actual GFR. Performed By: #### 2 4323-8, LIPNF ####[facility] [id number] [place] [address] [place] Glucose [Mass/Vol] 78 mg/dL Normal 74-[address] [facility] Comment on above: Order Comment: Kacie euceda Type: BLOOD SPECIMENOrdering Facility: [facility] Address: [address] [place] [address] Result Comment: The [place] Diabetes Association (ADA) provides guidance for cutoff values for fasting glucose and random glucose. The ADA defines fasting as no caloric intake for at least 8 hours. Fasting plasma glucose results between 100 to 125 mg/dL indicate increased risk for diabetes (prediabetes). Fasting plasma glucose results greater than or equal to 126 mg/dL meet the criteria for diagnosis of diabetes. In the absence of unequivocal hyperglycemia, results should be confirmed by repeat testing. In a patient with classic symptoms of hyperglycemia or hyperglycemic crisis, random plasma glucose results greater than or equal to 200 mg/dL meet the criteria for diagnosis of diabetes. Reference: Standards of Medical Care in Diabetes 2016, [place] [employer]. Diabetes Care. 2016.39(Suppl 1). Performed By: #### 2 4323-8, LIPNF ####[facility] [id number] [place] [id number] [place] Potassium [Moles/Vol] 4.3 mmol/L Normal 3.7-5.1 [facility] Comment on above: Order Comment: Kacie euceda Type: BLOOD SPECIMENOrdering Facility: [facility] Address: [address] [place] [address] Performed By: #### 2 4323-8, LIPNF ####[facility] [id number] [place] [id number] [place] Protein [Mass/Vol] 6.8 g/dL Normal 6.3-8.[address] [facility] Comment on above: Order Comment: Speci men Type: BLOOD SPECIMENOrdering Facility: [facility] Address: [address] [place] [address] Performed By: #### 2 4323-8, LIPNF ####[facility] [id number] [place] [address] [place] Sodium [Moles/Vol] 136 mmol/L Normal 136-[address] [facility] Comment on above: Order Comment: Speci men Type: BLOOD SPECIMENOrdering Facility: [facility] Address: [address] [place] [address] Performed By: #### 2 4323-8, LIPNF ####[facility] [id number] [place] [address] [place] Urea nitrogen [Mass/Vol] 6 mg/dL Low 7-21 [facility] Comment on above: Order Comment: Speci men Type: BLOOD SPECIMENOrdering Facility: [facility] Address: [address] [place] [address] Performed By: #### 2 4323-8, LIPNF ####[facility] [id number] [place] [place] [id number] [place] LIPID PANEL, NONFASTINGon Cholesterol [Mass/Vol] 184 mg/dL Normal <200 [facility] Comment on above: Order Comment: Speci men Type: BLOOD SPECIMENOrdering Facility: [facility] Address: [address] [place] [address] Result Comment: <200 mg/dL, Desirable 200-239 mg/dL, Borderline high >239 mg/dL, High Performed By: #### 2 4323-8, LIPNF ####[facility] LABCLIA [id number] [facility] [id number], [place] [address] [facility] [place] HDL CHOLESTEROL, NF 62 mg/dL Normal >39 [facility] Comment on above: Order Comment: Speci men Type: BLOOD SPECIMENOrdering Facility: [facility] Address: [address] [place] [address] Result Comment: 40-5 9 mg/dL, Acceptable >59 mg/dL, High: Negative risk factor for coronary heart disease <40 mg/dL, Low: Positive risk factor for coronary heart disease Performed By: #### 2 4323-8, LIPNF ####[facility] LABCLIA [id number] [address] LDL CHOLESTEROL, NF 104 mg/dL High <100 [facility] Comment on above: Order Comment: Speci [facility] Type: BLOOD SPECIMENOrdering Facility: [facility] Address: [address] [place] [address] Result Comment: <100 mg/dL, Optimal 100-129 mg/dL, Near optimal/above optimal 130-159 mg/dL, Borderline high 160-189 mg/dL, High >189 mg/dL, Very high Secondary prevention optimal LDL Cholesterol levels are recommended to be < 70 mg/dL Performed By: #### 2 4323-8, LIPNF ####[facility] LABCLIA [id number] [address] OF [facility] LDL/HDL RATIO, NF 1.68 mg/dL Normal <2.54 [facility] Comment on above: Order Comment: Speci [facility] Type: BLOOD SPECIMENOrdering Facility: [facility] Address: [address] [place] [address] Result Comment: Refe tay: 1. National Cholesterol Education Program ATP III Guideline At-A-Glance Quick Desk Reference: National Heart, Lung, and Blood [place]. National Institutes of Health. 2001: NIH Publication No. 01-3305. 2. An International Atherosclerosis Society position paper: global recommendations for the management of dyslipidemia: executive summary, Atherosclerosis. 2014: 232(2):410-413. Cut Points from the Lipid Research Clinic's Prevalence Study for ages 20 to 24 years can be located in the following reference: Expert Panel on Integrated Guidelines for Cardiovascular Health and Risk Reduction in Children and Adolescents: National Heart, Lung and Blood [place]. Pediatrics. 2011:128(Suppl 5):C333-391. Performed By: #### 2 4323-8, LIPNF ####[facility] LABCLIA [id number] [place] [id number] [place] NON HDL CHOL, NF 122 mg/dL Normal <130 [facility] Comment on above: Order Comment: Speci ok Type: BLOOD SPECIMENOrdering Facility: [facility] Address: [address] [place] [address] Result Comment: <130 mg/dL, Optimal 130-159 mg/dL, Near optimal/above optimal 160-189 mg/dL, Borderline high 190-219 mg/dL, High >219 mg/dL, Very high Secondary prevention optimal non HDL Cholesterol levels are recommended to be <100 mg/dL Performed By: #### 2 4323-8, LIPNF ####[facility] LABCLIA [id number] [address] [place] T CHOL/HDL RATIO NF 2.97 mg/dL Normal <5.10 [facility] Comment on above: Order Comment: Kacie euceda Type: BLOOD SPECIMENOrdering Facility: [facility] Address: [address] [place] [address] Performed By: #### 2 4323-8, LIPNF ####[facility] LABCLIA [id number] [place] [id number] [place] TRIGLYCERIDES, NF 92 mg/dL Normal <150 [facility] Comment on above: Order Comment: Kacie euceda Type: BLOOD SPECIMENOrdering Facility: [facility] Address: [address] [place] [address] Result Comment: <150 mg/dL, Normal 150-199 mg/dL, Borderline high 200-499 mg/dL, High >499 mg/dL, Very high Performed By: #### 2 4323-8, LIPNF ####[facility] LABCLIA [id number] [place] [address] [place] VLDL CHOLESTEROL, NF 18 mg/dL Normal <30 [facility] Comment on above: Order Comment: Speci men Type: BLOOD SPECIMENOrdering Facility: [facility] Address: [address] [place] [address] Performed By: #### 2 4323-8, LIPNF ####[facility] LABCLIA [id number] [place] [address] [place] BACTERIAL VAGINOSIS NAATon 0 12-27-2024 Lactobacillus crispatus+gasseri+jenseni i + Gardnerella vaginalis + Atopobium vaginae rRNA LUCIA+probe Ql (Vag fld) Not detected Normal Not detected [facility] Comment on above: Order Comment: Speci men Type: SWABOrdering Facility: [facility] Address: [address] [place] [address] Performed By: #### C VTV, BVAMP ####[facility] LABCLIA [id number] [place] [address] [place] JIM/TRICHOMONAS NAATon 0 12-27-2024 C. glabrata RNA LUCIA+probe Ql (Vag fld) Not detected Normal Not detected [facility] Comment on above: Order Comment: Speci men Type: SWABOrdering Facility: [facility] Address: [address] [place] [address] Performed By: #### C VTV, BVAMP ####[facility] LABCLIA [id number] [place] [address] [place] Jim sp DNA LUCIA+probe Ql (Vag fld) Not detected Normal Not detected [facility] Comment on above: Order Comment: Speci men Type: SWABOrdering Facility: [facility] Address: [address] [place] [address] Result Comment: The Jim species group target includes C. albicans, C. tropicalis, C. parapsilosis, and C. dubliniensis. Performed By: #### C VTV, BVAMP ####[facility] LABIA [id number] [address] OF [facility] T. vaginalis DNA LUCIA+probe Ql (Unsp spec) Not detected Normal Not detected [facility] Comment on above: Order Comment: Speci men Type: SWABOrdering Facility: [facility] Address: [address] [place] [address] Performed By: #### C VTV, BVAMP ####[facility] LABCLIA [id number] [address] OF [place] CNOVon 12-27-2024 CNOV Office Visit (OBGYWM) ---- DEREKDARYLHOWARD ([id number]) 03 F [facility] Date Time Provider Department 12/27/24 8:40 AM CLARE FRANK OBGYWM During your visit today, we recorded the following information about you: Blood pressure Weight 98/60 82.9 kg Clare Frank MD 12/27/2024 9:29 AM Signed Master Welder offered: Patient declines. Howard Raul Odilon is a 19 year old female who presents for problem visit - spotting at 16 week gestation. HPI: Had intercourse yesterday morning followed by vaginal spotting that was brown-pink in color. No bleeding or spotting today. Some back soreness. Otherwise no complaints. No urinary symptoms. Normal BM's. Last week noticed cream colored vaginal discharge. No vaginal itching or burning. OB History Gravida1 Para0 Term0 Preterm0 AB0 Living0 SAB0 IAB0 Ectopic0 Multiple0 Live Births0 Conference Service Coordinator History LMP: 08/31/2024, Age at Menarche: 11 Age at First : 19 Age at Menopause: Conference Service Coordinator History Comments: Sexual Activity: Yes; Male; Not asked Contraception: No contraception data on record PAST MEDICAL HISTORY Diagnosis Date Depression GERD (gastroesophageal reflux disease) 09/10/2023 Migraines TBI (traumatic brain injury) ([facility]) 2019 PAST SURGICAL HISTORY Procedure Laterality Date TONSILLECTOMY AND ADENOIDECTOMY TOOTH EXTRACTION FAMILY HISTORY Problem Relation Age of Onset Hypertension Mother Diabetes Father Glaucoma Father No Known Problems Brother No Known Problems Brother Stroke Maternal Grandmother other (Pulmonary embolism) Maternal Grandmother other (heart murmur) Maternal Grandmother other (a fib) Maternal Uncle Cataract No Family History Detached Retina No Family History Macular Degen No Family History Blindness No Family History Amblyopia No Family History Strabismus No Family History Social History Tobacco Use Smoking status: Never Smokeless tobacco: Never Vaping Use Vaping status: Never Used Substance Use Topics Alcohol use: Not Currently Drug use: Never Current Outpatient Medications Medication Sig triamcinolone (KENALOG) 0.025 % ointment Apply to affected area two times a day. vit/iron fum/folic ac ( 1 + 1 ORAL) Take by mouth. albuterol HFA (VENTOLIN HFA) 90 mcg/actuation inhaler Inhale 2 Puffs as instructed every 4 hours as needed for wheezing/shortness of breath. ondansetron (ZOFRAN) 4 mg tablet Take 1 tablet by mouth every 8 hours as needed for nausea/vomiting. rizatriptan (MAXALT) 10 mg tablet Take 1 tablet (10 mg) by mouth as needed. May repeat in 2 hours if needed aspirin, enteric coated (ECOTRIN LOW STRENGTH) 81 mg EC tablet Take 1 tablet by mouth once daily. (Patient not taking: Reported on 12/15/2024) No current facility-administer ed medications for this visit. Allergies As of Date: 12/27/2024 Allergen Noted Reaction AMOXICILLIN 06/07/2023 Other: See Comments CATS 01/06/2023 Itching DUST 01/06/2023 Itching and Other: See Comments GRASS POLLEN 03/14/2021 Rash Fully Assessed 12/27/2024 REVIEW OF SYSTEMS Expanded ROS: See HPI. Allergies and current medication updated:Yes SENSITIVE EXAM: The sensitive examination was discussed with the Patient or Patient's Authorized Curtain Fitter. As applicable, any other physician, advance practice provider, medical student, or other health professional student that will be observing or involved in the sensitive examination for educational or training purposes was discussed with the Patient or Authorized Curtain Fitter. The Patient or Authorized Curtain Fitter has agreed to proceed with the sensitive examination. (Sensitive examination includes inspection and/or palpation of the breasts, pelvis, prostate and anorectal regions). EXAM: BP 98/60 Wt 182 lb 12.8 oz (82.9kg) LMP 08/31/2024 GENERAL: pleasant, female in no apparent distress HEENT: Normocephalic and atraumatic CHEST: Normal inspiratory effort PELVIC: external genitalia normal, normal Bartholin's glands, urethra, Keyser's glands, no vulvar lesions, no cervical lesions, good vaginal support, physiologic discharge present, normal appearing perineal body and perianal region, no bleeding, cervix closed and long NEURO: exam grossly non-focal EXTREMITIES: normal FHT 140-150 bpm today ASSESSMENT AND PLAN: Assessment AND Plan Vaginal discharge Orders: BACTERIAL VAGINOSIS NAAT JIM/TRICHOMONAS NAAT Vaginal spotting 16 weeks gestation of Reassurance provided. Likely due to recent intercourse. Clare Frank, DO Medical Decision Making: Problems: Low: Acute, uncomplicated illness or injury Medical Decision Making Level: 2 - Straightforward Allergies As of Date: 12/27/2024 Noted Allergy Reaction AMOXICILLIN 06/07/2023 14 - Other: See Comments Comments: Was given so many times as a child it stopped working- so they stopped giving to h (more content not included)... Normal [facility] CNOVon 12-15-2024 CNOV Office Visit (FAMPWS) ---- HOWARD DONALD ([id number]) 03 F [facility] Date Time Provider Department 12/15/24 8:00 AM DONTE SINGLETON FAMPWS During your visit today, we recorded the following information about you: Pulse Respiration Blood pressure Weight 96/minute 16/minute 98/58 81.8 kg Donte Singleton MD 12/15/2024 8:51 AM Signed Chief Complaint Patient presents with: ER F/U: Asthma HPI Howard Donald is a 19 year old female who presents here today for new limited ER Follow Up.. Patient evaluated at [facility] ED on 12/02 for asthma exacerbation, postnasal drainage, and sore throat. Was 13 weeks at time of their evaluation. VSS on room air. Normal exam. Workup for COVID, flu, RSV were negative. CXR normal. Did not require treatment in the ER and was discharged home with rx for Prednisone 60 mg daily x 5 days. Since discharge, URI symptoms have resolved and has not had wheezing or SOB. With exertion she has noticed some mild dry cough, but still has not needed her inhaler for this. Denies fever/chills, chest pain, chest congestion, hempotysis, sore throat, headache, myalgias, fatigue, new loss of taste/smell, nausea, vomiting, diarrhea. Typical triggers for her asthma include seasonal changes and exercise. Uses her albuterol inhaler less than weekly typically. Has had to use inhaler 3 times since discharge with last use 2 days after ER evaluation. Past medical history, appointments, medications, allergies reviewed. Previous Medical History PAST MEDICAL HISTORY Diagnosis Date Depression GERD (gastroesophageal reflux disease) 09/10/2023 Migraines TBI (traumatic brain injury) ([facility]) 2019 Previous Surgical History PAST SURGICAL HISTORY Procedure Laterality Date TONSILLECTOMY AND ADENOIDECTOMY TOOTH EXTRACTION Family History FAMILY HISTORY Problem Relation Age of Onset Hypertension Mother Diabetes Father Glaucoma Father No Known Problems Brother No Known Problems Brother Stroke Maternal Grandmother other (Pulmonary embolism) Maternal Grandmother other (heart murmur) Maternal Grandmother other (a fib) Maternal Uncle Cataract No Family History Detached Retina No Family History Macular Degen No Family History Blindness No Family History Amblyopia No Family History Strabismus No Family History Patient Allergies ALLERGIES Allergen Reactions Cats Itching Dust Itching, Other: See Comments Grass Pollen Rash Sneezing and Rash Current Medications Current Outpatient Medications on File Prior to Visit Medication Sig aspirin, enteric coated (ECOTRIN LOW STRENGTH) 81 mg EC tablet Take 1 tablet by mouth once daily. (Patient not taking: Reported on 12/15/2024) vit/iron fum/folic ac ( 1 + 1 ORAL) Take by mouth. albuterol HFA (VENTOLIN HFA) 90 mcg/actuation inhaler Inhale 2 Puffs as instructed every 4 hours as needed for wheezing/shortness of breath. ondansetron (ZOFRAN) 4 mg tablet Take 1 tablet by mouth every 8 hours as needed for nausea/vomiting. rizatriptan (MAXALT) 10 mg tablet Take 1 tablet (10 mg) by mouth as needed. May repeat in 2 hours if needed No current facility-administer ed medications on file prior to visit. Social History Social History Tobacco Use Smoking status: Never Smokeless tobacco: Never Vaping Use Vaping status: Never Used Substance Use Topics Alcohol use: Not Currently Drug use: Never Review of Symptoms REVIEW OF SYSTEMS See HPI EXAM: BP 98/58 Pulse 96 Resp 16 Wt 81.8 kg (180 lb 6.4 oz) LMP 08/31/2024 SpO2 99% BMI 28.25 kg/m? General Appearance: Well appearing, alert, in no acute distress, well-hydrated, well nourished.. Skin: Skin color, texture, turgor normal, no suspicious rashes or lesions. Lungs: Lungs clear to auscultation. No wheezing, rhonchi, rales.. Heart: RRR without murmur, gallop, or rubs. No ectopy. Health Maintenance List Asthma Action Plan Never done Asthma Control Test Never done Spirometry Never done Covid-19 Vaccine(2023- season) due on 06/13/2024 GC (Gonorrhea) Screening (18-24) due on 10/27/2025 Depression Screening due on 10/27/2025 Anxiety Screening due on 10/27/2025 Chlamydia Screening (18-24) due on 10/27/2025 Annual PCP Team Chronic Disease Visit due on 12/15/2025 Cervical Cancer Screening due on 10/27/2027 DTaP,Tdap,Td Vaccine(8 - Td or Tdap) due on 10/22/2033 Hepatitis B Vaccine Completed HPV Vaccine Completed Influenza Vaccine Completed RSV Vaccine(No Doses Required) Completed Hepatitis C Screening Completed HIV Screening Completed Meningococcal B Vaccine Discontinued ASSESSMENT/PLAN: 1. Mild intermittent asthma with acute exacerbation - ICD9: 493.92, ICD10: J45.21 (primary diagnosis) Exacerbation symptoms have resolved. I had a long discussion with the patient about new GISSELL guidelines for mild intermittent asthma a (more content not included)... Normal [facility] CNPNon 12-02-2024 CNPN Telephone (OBGYWM) ---- HOWARD DONALD ([id number]) 03 F [facility] Date Time Provider Department 12/02/24 TATI BOWLES OBGYWM During your visit today, we recorded the following information about you: Mandy Pearl RN 12/02/2024 10:14 AM Signed 13w2d Patient called with c/o SOB, chest pain and back pain. Hx of asthma. Called to inquire if she should go to ER or Express Care. Patient has used her rescue inhaler x3 without relief and a hot shower. Advised to go to ER for evaluation. Patient voiced agreement. FYI - only. Mandy Pearl RN Allergies As of Date: 12/02/2024 Noted Allergy Reaction CATS 01/06/2023 9 - Itching DUST 01/06/2023 9 - Itching 14 - Other: See Comments GRASS POLLEN 03/14/2021 2 - Rash Comments: Sneezing and Rash Date Reviewed: 11/26/2024 Reviewed by: Mandy Sam MD - Fully Assessed Reason for Visit: OB SOB, CP [Other] Prescriptions as of 12/02/2024 - aspirin, enteric coated (ECOTRIN LOW STRENGTH) 81 mg EC tablet Take 1 tablet by mouth once daily. - vit/iron fum/folic ac ( 1 + 1 ORAL) Take by mouth. - albuterol HFA (VENTOLIN HFA) 90 mcg/actuation inhaler Inhale 2 Puffs as instructed every 4 hours as needed for wheezing/shortness of breath. - ondansetron (ZOFRAN) 4 mg tablet Take 1 tablet by mouth every 8 hours as needed for nausea/vomiting. - rizatriptan (MAXALT) 10 mg tablet Take 1 tablet (10 mg) by mouth as needed. May repeat in 2 hours if needed Problem List As Of Date 12/02/2024 Noted Resolved TBI (traumatic brain injury) (HCC) [S06.9XAA] 05/06/2022 History of depression [Z86.59] 05/06/2022 Migraine with aura, not intractable, without st*05/06/2022 BMI 29.0-29.9,adult [Z68.29] 05/06/2022 Vasovagal syncope [R55] 09/10/2023 GERD (gastroesophageal reflux disease) [K21.9] 09/10/2023 10/27/2024 Asthma affecting in first trimester [*10/27/2024 Encounter for supervision of high risk pregnanc*10/27/2024 History of eating disorder [Z86.59] 10/27/2024 Nausea and vomiting in [O21.9] 10/27/2024 Constipation during in first trimeste*10/27/2024 Encounter Status:Closed by MANDY PEARL on 12/02/24 Normal [facility] Chest PA and Lateralon 12-02 Chest PA and Lateral [facility] [address] [place] [id number] Chest PA and Lateral MR#: [id number] Acct: [id number] Name: HOWARD DONALD Rep #: [id number] : 2005 F 19 From: Emiliano ely MD PCP: Kim Ward Status: REG ER Study: Chest PA and Lateral Date of Exam: 12/02/24 Exam# [id number] Ordering Dr: Rick Rodrigues MD PROCEDURE: CHEST PA AND LATERAL REASON FOR EXAM: Shortness of breath. The patient is 13 weeks . Adequate shielding was obtained. TECHNIQUE: PA and lateral chest radiographs were obtained. COMPARISON: December 30, 2023. FINDINGS: The heart is nonenlarged. The lungs are clear. Scattered calcified granulomas. RAD/Chest PA and Lateral IMPRESSION: No acute abnormality is seen. Reading Location: [id number] CC: Dr. Rick Rodrigues MD; Kim Ward Nursing Clinical Director: Signed Normal [facility] Emergency Department Summary on 12-02-2024 Emergency Department Summary [facility] Medical Records Department [address] [place] [address] Emergency Department Summary 12/02/24 MR#: [id number] Acct: [id number] Name: HOWARD DONALD LORAINE Rep #: [id number] : 2005 19 From: Rick Rodrigues MD PCP: Kim Ward Status:REG ER Location: ED HPI History of Present Illness Chief Complaint: Asthma Detail of Chief Complaint: Exacerbation of asthma, postnasal drainage, sore throat Onset/Context/Timin g Onset: Yesterday Context: Sudden Onset Timing: Intermittent Quality: Mild upper respiratory symptoms with wheezing and shortness of breath Location: Respiratory Current Severity: Mild Maximum Severity: Moderate Worsened by: Nothing specific Relieved by: Nothing Associated Symptoms Associated Symptoms: Denies fever or chills Narrative Narrative: Patient is a 19-year-old female who is 13 weeks gestation. She has mild upper respiratory tract symptoms. She denies documented fever. She denies shaking chills or subjective fever. She does have mild congestion with sore throat. Denies ear pain. She has slight cough. She has been wheezing. She has been using her inhaler more frequent. Does not have a spacer. She has not been on prednisone in the last 3 to 6 months. She denies abdominal pain, nausea, vomit or diarrhea. When asked if it hurts to breathe she states she feels she is not getting enough air. She has no history of VTE. Denies leg pain, swelling discoloration. Review of prior records in case patient has been on prednisone in the past for her asthma. Prior similar symptoms: Yes Recent Illness/Hospitaliza tion: No PFSH PFSH Medical History H/O traumatic brain injury Depression Anxiety Home Medications ???Medication ???Instructions ???Recorded ???Last Taken ???Type ondansetron 4 mg disintegrating 4 mg PO Q8H 06/07/23 Unknown Histo ry tablet rizatriptan 10 mg tablet (Maxalt) See Rx Instructions PO .COMPLEX 0 06/07/23 Unknown History prednisone 20 mg tablet 20 mg PO BID #6 tabs 12/30/23 Unkn own Rx prednisone 20 mg tablet 60 mg (3 x 20 mg) PO DAILY #15 Unknown Rx TABLETS Allergy/AdvReac Type Severity Reaction Status Date / Time No Known Allergies Allergy Verified 12/02/24 10:54 Surgical History Hx of tonsillectomy Social History household members: spouse housing: house Smoking Status: Never smoker ROS ROS ED Constitutional Constitutional ED: Denies chills, fever(s) or subjective Eyes Eyes: Denies blurry vision or change in vision ENT ENT ED: Reports sore throat; Denies ear pain or rhinorrhea Cardiovascular Cardiovascular: Denies chest pain, orthopnea, palpitations or paroxysmal nocturnal dyspnea Respiratory/Chest Respiratory/Chest: Reports cough, dyspnea and dyspnea on exertion; Denies orthopnea, paroxysmal nocturnal dyspnea or sputum Gastrointestinal Gastrointestinal: Denies abdominal pain, diarrhea, nausea or vomiting Genitourinary Genitourinary ED: Denies dysuria, hematuria or urinary frequency Musculoskeletal Musculoskeletal: Denies arthralgias or myalgias Integumentary Denies rash Neurologic Neurologic: Denies headache(s) or paresthesias Hematologic/Lymphat ic Hematologic/Lymphat ic: Reports systems reviewed and no addt'l complaints, except as documented EXAM Physical Exam Const Vital Signs: 12/02/24 10:54 12/02/24 12:22 12/02/24 12:54 Temperature 98.2 F Temperature Source Temporal Pulse Rate 107 H 87 Respiratory Rate 16 Respiratory Effort Short of Breath Respiratory Depth Normal Respiratory Pattern Tachypnea Blood Pressure 95/71 104/64 Blood Pressure Mean 79 77 Pulse Ox 100 99 Oxygen Delivery Method Room Air Room Air 12/02/24 14:00 Temperature Temperature Source Pulse Rate 102 H Respiratory Rate 14 Respiratory Effort Respiratory Depth Respiratory Pattern Blood Pressure 108/72 Blood Pressure Mean 84 Pulse Ox 99 Oxygen Delivery Method Room Air Positive well nourished and well developed General Appearance ED: well developed and NAD; Negative for cyanotic, diaphoretic or pallor HEENT Reports moist mucous membranes HEENT Narrative: Head is atraumatic normocephalic. Ears normal. TMs normal. Nares patent with questionable slight drainage. Posterior pharynx is normal Eyes PERRL and EOMs intact bilaterally General Eye ED: Negative for pale conjunctiva or scleral icterus Neck no lymphadenopathy, supple and no JVD Chest Wall inspection of chest normal and palpation of chest normal Resp normal respiratory effort and clear to auscultation bilaterally Cardio regular rate, regular rhythm, S1 normal he (more content not included)... Normal [facility] M100.678on 12-02-2024 M100.678 SARS-CoV-2 (COVID 19) Negative INFLUENZA A Negative INFLUENZA B Negative RSV PCR Negative Normal [facility] Comment on above: Performed By: #### M 100.678 #### [facility] [address] [place], [place], [id number] Examination level ultrasound on 11-26-2024 Indication First trimester anatomic survey Impression The patient is referred for a first trimester anatomy scan including nuchal translucency measurement as clinically indicated. - Single, live, intrauterine . - [place] rump length measurement is consistent with the established gestational age. - A qualitative screen of the nuchal translucency and other anatomic structures was unremarkable on a complete first trimester anatomic assessment. - Not all structural malformations can be detected by ultrasound examination. - An anatomic survey at 18-20 weeks is recommended given no identified risk factors. Recommendations - An anatomic survey at 18-20 weeks given no identified risk factors. - Additional follow up as clinically indicated. Maternal Assessment Height 170 cm Height (ft) 5 ft Height (in) 7 in Physical Exam Initial weight (lb) 180 lb Initial BMI 28.19 kg/m Maternal assessment other: 1 Para 0 Method Transabdominal ultrasound examination Waldron . Number of fetuses: 1 Dating LMP on: 08/31/2024 GA by LMP 12 w + 3 d COREY by LMP: 06/07/2025 Ultrasound examination on: 11/26/2024 GA by U/S based upon: CRL GA by U/S 13 w + 3 d COREY by U/S: 05/31/2025 Assigned: based on the LMP, selected on 11/26/2024 Assigned GA 12 w + 3 d Assigned COREY: 06/07/2025 General Evaluation Cardiac activity present Placenta: posterior Cord vessels: 3 vessel cord Amniotic fluid: normal amount Biometry Standard FHR 141 bpm CRL 71.9 mm 13w 3d 95% [facility] First Trimester Anatomy Calvarium: normal Falx cerebri: normal Choroid plexus: normal Profile: normal Nasal bone: normal Retronasal triangle: normal Maxilla: normal Mandible: normal Nuchal translucency: Unremarkable Situs: normal Cardiac position: normal Cardiac axis: normal 4-chamber view: normal 4-chamber view with color: normal 1-cjqukb-pkwqtaq view: normal Abdominal cord insertion: normal Stomach: normal Kidneys: normal Bladder: normal Color doppler of perivesical umbilical arteries: normal Vertebral alignment: normal Arms: normal Hands: normal Legs: normal Feet: normal Maternal Structures Uterus / Cervix Uterus: Visualized Uterus length 149 mm Uterus width 113 mm Uterus height 67 mm Uterus Vol 587.4 cm Ovaries / Tubes / Adnexa Rt ovary: Not visualized Lt ovary: Visualized Lt ovary D1 26 mm Lt ovary D2 23 mm Lt ovary D3 21 mm Lt ovary Vol 6.6 cm Performed By: Destiney Blunt RDMS, RVT Read By: Lynn Oglesby M.D. MATERNAL MEDICINE [facility] Radiology Study observation (narrative) [facility] [id number] PLUSon 11-15-2024 Cell-free DNA./Cell-free DNA.total Dosage of chromosome-specific cfDNA (cfDNA) [Molar fraction] 34% Normal [facility] Comment on above: Order Comment: Speci men Type: BLOOD SPECIMENOrdering Facility: [facility] Address: [address] [place] [address] Performed By: #### M AT21 ####[facility] LABCLIA [id number] [place] [address] Chr 13+18+21+X+Y aneuploidy Dosage of chromosome-specific cfDNA Ql (cfDNA) Negative Normal [facility] Comment on above: Order Comment: Speci men Type: BLOOD SPECIMENOrdering Facility: [facility] Address: [address] [place] [address] Performed By: #### M AT21 ####[employer] LABCLIA [id number] [place] [address] Chr 21 trisomy Dosage of chromosome-specific cfDNA Ql (cfDNA) Negative Normal [facility] Comment on above: Order Comment: Speci men Type: BLOOD SPECIMENOrdering Facility: [facility] Address: [address] [place] [address] Performed By: #### M AT21 ####[facility] LABCLIA [id number] [place] [address] Chr X and Y aneuploidy risk Sequencing Ql (cfDNA) [Interp] Not detected Normal [facility] Comment on above: Order Comment: Speci men Type: BLOOD SPECIMENOrdering Facility: [facility] Address: [address] [place] [address] Result Comment: Not Detected Not Detected Performed By: #### M AT21 ####[facility] LABCLIA [id number] [place] [address] Citation Tutu (Reference lab test) Comment Normal [facility] Comment on above: Order Comment: Speci men Type: BLOOD SPECIMENOrdering Facility: [facility] Address: [address] [place] [address] Result Comment: 1. P bo CHOI, et al. [place] Med. 2012;14(3):296-305. 2. Ronaldo BARRON, et al. Prenat Diag. 2013;33(6):591-597. 3. Adrian Machado, et al. Clin Chem. 2015 Apr;61(4):608-616. 4. Gurmeet CHOI, et al. Ca Med. 2011;13(11):913-920. 5. ACOG/SMFM Practice Bulletin No. 226, Jul 2020. Performed By: #### M AT21 ####[facility] LABCLIA [id number] [place] [address] Gestational age Estimated from conception date Waldron Normal [facility] Comment on above: Order Comment: Speci men Type: BLOOD SPECIMENOrdering Facility: [facility] Address: [address] [place] [address] Performed By: #### M AT21 ####[facility] LABCLIA [id number] [place] [address] GESTATIONALAGE AGE > OR = 9W Yes Normal [facility] Comment on above: Order Comment: Speci men Type: BLOOD SPECIMENOrdering Facility: [facility] Address: [address] [place] [address] Performed By: #### M AT21 ####Sophia [employer] LABCLIA [id number] [place] [address] Laboratory comment Tutu (Report) Comment Normal [facility] Comment on above: Order Comment: Speci men Type: BLOOD SPECIMENOrdering Facility: [facility] Address: [address] [place] [address] Result Comment: The MaterniT(R) 21 PLUS laboratory-developed test (LDT) analyzes circulating cell-free DNA from a maternal blood sample. This test is used for screening purposes and not diagnostic. Clinical correlation is recommended. Validation data on twin pregnancies is limited and the ability of this test to detect aneuploidy in higher multiple gestations has not yet been validated. Performed By: #### M AT21 ####InitMeIA [id number] [place] [id number] director of food and beverage services name Nom (Provider) Comment Normal [facility] Comment on above: Order Comment: Speci ok Type: BLOOD SPECIMENOrdering Facility: [facility] Address: [address] [place] [address] Result Comment: This specimen showed an expected representation of chromosome 21, 18 and 13 material. Clinical correlation is suggested. Comment Elmer Kelly MD, PhD, Director, Natural Dentist Performed By: #### M AT21 ####[facility] [employer] LABScanNanoIA [id number] [place] [id number] LIMITATIONS OF THE TEST Comment Normal [facility] Comment on above: Order Comment: Sami ok Type: BLOOD SPECIMENOrdering Facility: [facility] Address: [address] [place] [address] Result Comment: Javier correa the results of these tests are highly reliable, discordant results, including inaccurate sex prediction, may occur due to placental, maternal, or mosaicism or neoplasm; vanishing twin; prior maternal organ transplant; or other causes. These tests are screening tests and not diagnostic; they do not replace the accuracy and precision of diagnosis with CVS or amniocentesis. A patient with a positive test result should be referred for genetic counseling and offered invasive diagnosis for confirmation of test results.[5] The results of this testing, including the benefits and limitations, should be discussed with a qualified healthcare provider. management decisions, including termination of the , should not be based on the results of these tests alone. The healthcare provider is responsible for the use of this information in the management of their patient. Sex chromosomal aneuploidies are not reportable for known multiple gestations. A negative result does not ensure an unaffected nor does it exclude the possibility of other chromosomal abnormalities or defects which are not a part of these tests. An uninformative result may be reported, the causes of which may include, but are not limited to, insufficient sequencing coverage, noise or artifacts in the region, amplification or sequencing bias, or insufficient fraction. These tests are not intended to identify pregnancies at risk for neural tube defects or ventral wall defects. Testing for whole chromosome abnormalities (including sex chromosomes) and for subchromosomal abnormalities could lead to the potential discovery of both and maternal genomic abnormalities that could have major, minor, or no, clinical significance. Evaluating the significance of a positive or a non-reportable result may involve both invasive testing and additional studies on the mother. Such investigations may lead to a diagnosis of maternal chromosomal or subchromosomal abnormalities, which on occasion may be associated with benign or malignant maternal neoplasms. These tests may not accurately identify triploidy, balanced rearrangements, or the precise location of subchromosomal duplications or deletions; these may be detected by diagnosis with CVS or amniocentesis. The ability to report results may be impacted by maternal BMI, maternal weight, maternal systemic lupus erythematosus (SLE) and/or by certain pharmaceutical agents such as low molecular weight heparin (for example: Lovenox(R), Xaparin(R), Clexane(R) and Fragmin(R)). Performed By: #### M AT21 ####[facility] LABCLIA [id number] [facility] [place] [address] Monosomy X risk Dosage of chromosome-specific cfDNA Ql (Plasma cell-free+WBC DNA) [Interp] Not detected Normal [facility] Comment on above: Order Comment: Speci men Type: BLOOD SPECIMENOrdering Facility: [facility] Address: [address] [place] [address] Performed By: #### M AT21 ####[facility] LABScanNanoIA [id number] [place] [address] NEGATIVE PREDICTIVE VALUE Note Normal [facility] Comment on above: Order Comment: Sami men Type: BLOOD SPECIMENOrdering Facility: [facility] Address: [address] [place] [address] Result Comment: The Negative Predictive Value (NPV) for trisomy 21, 18, and 13 is greater than 99%. The NPV for SCA and ESS cannot be calculated as SCA and ESS are only reported when an abnormality is detected. Performed By: #### M AT21 ####[facility] LABScanNanoIA [id number] [place] [address] PERFORMANCE CHARACTERISTICS Note Normal [facility] Comment on above: Order Comment: Kacie euceda Type: BLOOD SPECIMENOrdering Facility: [facility] Address: [address] [place] [address] Result Comment: ! Sex ! Accuracy: 99.4% ! ! ! ! Region (associated syndrome) ! Est. Sens# ! Est. Spec ! ! ! ! Trisomy 21 (Down Syndrome) ! 99.1% ! 99.9% ! ! ! ! Trisomy 18 (Schilling Syndrome) ! >99.9% ! 99.6% ! ! ! ! Trisomy 13 (Patau Syndrome) ! 91.7% ! 99.7% ! ! ! ! Sex Chromosome Aneuploidies## ! 96.2% ! 99.7% ! ! ! * As reported in ISCA database nstd37 [https://www.ncbi.nlm.nih.gov/dbvar/studies/nstd37/ ] # Estimated Sensitivity. Sensitivity estimated across the observed size distribution of each syndrome [per ISCA database nstd37] and across the range of fractions observed in routine clinical NIPT. Actual sensitivity can also be influenced by other factors such as the size of the event, total sequence counts, amplification bias, or sequence bias. ## Waldron gestation only. Performed By: #### M AT21 ####[facility] LABScanNanoIA [id number] [place] [address] POSITIVE PREDICTIVE VALUE N/A Normal [facility] Comment on above: Order Comment: Speci men Type: BLOOD SPECIMENOrdering Facility: [facility] Address: [address] [place] [address] Performed By: #### M AT21 ####[employer] LABCLIA [id number] [place] [address] Reference Lab Test Method Comment Normal [facility] Comment on above: Order Comment: Speci men Type: BLOOD SPECIMENOrdering Facility: [facility] Address: [address] [place] [address] Result Comment: See Notes Circulating cell-free DNA was purified from the plasma component of maternal blood. The extracted DNA was then converted into a genomic DNA library for aneuploidy analysis of chromosomes 21, 18, and 13 via next generation sequencing.[1] Optional findings based on the test order include sex chromosome aneuploidy (SCA)[2], and enhanced sequencing series (ESS)[3], which will only be reported on as an additional finding when an abnormality is detected. SCA testing includes information on X and Y representation, while ESS testing includes deletions in selected regions (22q, 15q, 11q, 8q, 5p, 4p, 1p) and trisomy of chromosomes 16 and 22. Performed By: #### M AT21 ####[employer] [id number] [place] [address] Service comment (Unsp spec) [Interp] Comment Normal [facility] Comment on above: Order Comment: Speci men Type: BLOOD SPECIMENOrdering Facility: [facility] Address: [address] [place] [address] Result Comment: See Notes [email or web address] is a subsidiary of [employer], using the brand [employer] This test was developed and its performance characteristics determined by [employer] It has not been cleared or approved by the Food and Drug Administration. This laboratory is certified under the Clinical Laboratory Improvement Amendments (CLIA) as qualified to perform high complexity clinical laboratory testing and accredited by the [employer] (CAP). If there is future clinical need for adding MaterniT GENOME testing, this specimen will be available until term. [facility] samples will not be retained beyond 60 days. [facility] patients will have to send a new sample for re-sequencing ([facility] Test Code: 447645). Performed By: #### M AT21 ####[facility] LABCLIA [id number] [place] [address] Sex Dosage of chromosome-specific cfDNA Nom (cfDNA) Comment Normal [facility] Comment on above: Order Comment: Speci men Type: BLOOD SPECIMENOrdering Facility: [facility] Address: [address] [place] [address] Result Comment: Cons istent with Male Performed By: #### M AT21 ####[facility] LABCLIA [id number] [place] [address] Test performance information Tutu (Unsp spec) Comment Normal [facility] Comment on above: Order Comment: Speci men Type: BLOOD SPECIMENOrdering Facility: [facility] Address: [address] [place] [address] Result Comment: The performance characteristics of the MaterniT(R) 21 PLUS laboratory-developed test (LDT) have been determined in a clinical validation study with women at increased risk for chromosomal aneuploidy.[1-4] Performed By: #### M AT21 ####[facility] LABCLIA [id number] [place] [address] Trisomy 13 risk Dosage of chromosome-specific cfDNA Ql (cfDNA) [Interp] Negative Normal [facility] Comment on above: Order Comment: Speci men Type: BLOOD SPECIMENOrdering Facility: [facility] Address: [address] [place] [address] Performed By: #### M AT21 ####[facility] LABCLIA [id number] [place] [address] Trisomy 18 risk Dosage of chromosome-specific cfDNA Ql (Plasma cell-free+WBC DNA) [Interp] Negative Normal [facility] Comment on above: Order Comment: Speci men Type: BLOOD SPECIMENOrdering Facility: [facility] Address: [address] [place] [address] Performed By: #### M AT21 ####[facility] LABCLIA [id number] [place] [address] Gutierrez 11-10-2024 LUCIE Telephone (OBGYWM) ---- HOWARD DONALD ([id number]) [address] [facility] Date Time Provider Department 11/10/24 NICKY CONNELL OBGYWM During your visit today, we recorded the following information about you: Inessa Sams RN 11/10/2024 9:59 AM Signed 10w1d Patient calling because her dog over 50lb jumped directly on abdomen this morning and she is now having intermittent mild cramping. No bleeding or other concerns. Advised to continue to monitor and call with any bleeding or worsening pain. Please advise. KEMI Medina Deidre, MD 11/10/2024 10:33 AM Signed Agree with advice Inessa Sams RN 11/10/2024 10:57 AM Signed Patient notified. Inessa Sams RN Allergies As of Date: 11/10/2024 Noted Allergy Reaction CATS 01/06/2023 9 - Itching DUST 01/06/2023 9 - Itching 14 - Other: See Comments GRASS POLLEN 03/14/2021 2 - Rash Comments: Sneezing and Rash Date Reviewed: 10/27/2024 Reviewed by: Alli Forrester APRN.RADIO PROGRAM DIRECTOR - Fully Assessed Reason for Visit: Question (OB Question) [1552] Prescriptions as of 11/10/2024 - aspirin, enteric coated (ECOTRIN LOW STRENGTH) 81 mg EC tablet Take 1 tablet by mouth once daily. - vit/iron fum/folic ac ( 1 + 1 ORAL) Take by mouth. - albuterol HFA (VENTOLIN HFA) 90 mcg/actuation inhaler Inhale 2 Puffs as instructed every 4 hours as needed for wheezing/shortness of breath. - ondansetron (ZOFRAN) 4 mg tablet Take 1 tablet by mouth every 8 hours as needed for nausea/vomiting. - rizatriptan (MAXALT) 10 mg tablet Take 1 tablet (10 mg) by mouth as needed. May repeat in 2 hours if needed Problem List As Of Date 11/10/2024 Noted Resolved TBI (traumatic brain injury) (HCC) [S06.9XAA] 05/06/2022 History of depression [Z86.59] 05/06/2022 Migraine with aura, not intractable, without st*05/06/2022 BMI 29.0-29.9,adult [Z68.29] 05/06/2022 Vasovagal syncope [R55] 09/10/2023 GERD (gastroesophageal reflux disease) [K21.9] 09/10/2023 10/27/2024 Asthma affecting in first trimester [*10/27/2024 Encounter for supervision of high risk pregnanc*10/27/2024 History of eating disorder [Z86.59] 10/27/2024 Nausea and vomiting in [O21.9] 10/27/2024 Constipation during in first trimeste*10/27/2024 Encounter Status:Closed by INESSA SAMS on 11/10/24 Normal [facility] CARRIER SCREEN, STANDARDon 0 11-05-2024 CARRIER SCREEN RESULTS View results in Scanned Documents link when available. Normal [facility] Comment on above: Order Comment: Speci men Type: BLOOD SPECIMEN [facility] Address: [address] [place] [address] Performed By: #### L [id number] #### [facility] CLIA [id number] [address] [place] [address] [place] CBC W Auto Differential pane l (Bld)on 11-05-2024 Basophils (Bld) [#/Vol] 0.03 10*3/uL Normal <0.11 [facility] Comment on above: Order Comment: Speci men Type: BLOOD SPECIMEN [facility] Address: [address] [place] [address] Performed By: #### L [id number] #### [facility] CLIA [id number] [address] [place] [address] [place] Basophils/100 WBC (Bld) 0.5 % Normal C [facility] Comment on above: Order Comment: Speci men Type: BLOOD SPECIMEN [facility] Address: [address] [place] [address] Performed By: #### L [id number] #### [facility] CLIA [id number] [address] [place] [address] [place] Differential cell count method Nom (Bld) Auto Normal [facility] Comment on above: Order Comment: Speci men Type: BLOOD SPECIMEN [facility] Address: [address] [place] [address] Performed By: #### L [id number] #### [facility] CLIA [id number] [address] [place] [address] [place] Eosinophils (Bld) [#/Vol] 0.05 10*3/uL Normal <0.46 [facility] Comment on above: Order Comment: Speci men Type: BLOOD SPECIMEN [facility] Address: [address] [place] [address] Performed By: #### L [id number] #### [facility] CLIA [id number] [address] [place] [address] [place] Eosinophils/100 WBC (Bld) 0.8 % Normal [facility] Comment on above: Order Comment: Speci men Type: BLOOD SPECIMEN [facility] Address: [address] [place] [address] Performed By: #### L [id number] #### [facility] CLIA [id number] [address] [place] [address] [place] Erythrocyte distribution width (RBC) [Ratio] 12.6 % Normal 11.5-15.0 [facility] Comment on above: Order Comment: Speci men Type: BLOOD SPECIMEN [facility] Address: [address] [place] [address] Performed By: #### L [id number] #### [facility] CLIA [id number] [address] [place] [address] [place] Hematocrit (Bld) [Volume fraction] 36.5 % Normal 36.0-46.0 [facility] Comment on above: Order Comment: Speci men Type: BLOOD SPECIMEN [facility] Address: [address] [place] [address] Performed By: #### L [id number] #### [facility] CLIA [id number] [address] [place] [address] [place] Immature granulocytes (Bld) [#/Vol] 10*3/uL Normal <0.10 [facility] Comment on above: Order Comment: Speci men Type: BLOOD SPECIMEN [facility] Address: [address] [place] [address] Performed By: #### L [id number] #### [facility] CLIA [id number] [address] [place] [address] [place] Immature granulocytes/100 WBC (Bld) 0.3 % Normal [facility] Comment on above: Order Comment: Speci men Type: BLOOD SPECIMEN [facility] Address: [address] [place] [address] Performed By: #### L [id number] #### [facility] CLIA [id number] [address] [place] [address] [place] Lymphocytes (Bld) [#/Vol] 1.38 10*3/uL Normal 1.00-4.0 0 [facility] Comment on above: Order Comment: Speci men Type: BLOOD SPECIMEN [facility] Address: [address] [place] [address] Performed By: #### L [id number] #### [facility] CLIA [id number] [address] [place] [address] [place] Lymphocytes/100 WBC (Bld) 21.5 % Normal [facility] Comment on above: Order Comment: Speci men Type: BLOOD SPECIMEN [facility] Address: [address] [place] [address] Performed By: #### L [id number] #### [facility] CLIA [id number] [address] [place] [address] [place] MCH (RBC) [Entitic mass] 28.4 pg Normal 26.0-34.0 [facility] Comment on above: Order Comment: Speci men Type: BLOOD SPECIMEN [facility] Address: [address] [place] [address] Performed By: #### L [id number] #### [facility] CLIA [id number] [address] [place] [address] [place] MCHC (RBC) [Mass/Vol] 34.0 g/dL Normal 30.5-36.0 [facility] Comment on above: Order Comment: Speci men Type: BLOOD SPECIMEN [facility] Address: [address] [place] [address] Performed By: #### L [id number] #### [facility] CLIA [id number] [address] [place] [address] [place] MCV (RBC) [Entitic vol] 83.5 fL Normal 80.0-100.0 C [facility] Comment on above: Order Comment: Speci men Type: BLOOD SPECIMEN [facility] Address: [address] [place] [address] Performed By: #### L [id number] #### [facility] CLIA [id number] [address] [place] [address] [place] Monocytes (Bld) [#/Vol] 0.45 10*3/uL Normal <0.87 [facility] Comment on above: Order Comment: Speci men Type: BLOOD SPECIMEN [facility]: [facility] Address: [address] [place] [address] Performed By: #### L [id number] #### [facility] CLIA [id number] [address] [place] [address] [place] Monocytes/100 WBC (Bld) 7.0 % Normal C [facility] Comment on above: Order Comment: Speci men Type: BLOOD SPECIMEN [facility]: [facility] Address: [address] [place] [address] Performed By: #### L [id number] #### [facility] CLIA [id number] [address] [place] [address] [place] Neutrophils (Bld) [#/Vol] 4.48 10*3/uL Normal 1.45-7.5 0 [facility] Comment on above: Order Comment: Speci men Type: BLOOD SPECIMEN Ordering Facility: [facility] Address: [address] [place] [address] Performed By: #### L [id number] #### [facility] CLIA [id number] [address] [place] [address] [place] Neutrophils/100 WBC (Bld) 69.9 % Normal [facility] Comment on above: Order Comment: Speci men Type: BLOOD SPECIMEN Ordering Facility: [facility] Address: [address] [place] [address] Performed By: #### L [id number] #### [facility] CLIA [id number] [address] [place] [address] [place] Nucleated RBC (Bld) [#/Vol] 10*3/uL Normal <0.01 [facility] Comment on above: Order Comment: Speci men Type: BLOOD SPECIMEN Ordering Facility: [facility] Address: [address] [place] [address] Performed By: #### L [id number] #### [facility] CLIA [id number] [address] [place] [address] [place] Nucleated RBC/100 WBC (Bld) [Ratio] 0.0 /100 WBC Normal [facility] Comment on above: Order Comment: Speci men Type: BLOOD SPECIMEN Ordering Facility: [facility] Address: [address] [place] [address] Performed By: #### L [id number] #### [facility] CLIA [id number] [address] [place] [address] [place] Platelet mean volume (Bld) [Entitic vol] 9.9 fL Normal 9.0-12.7 [facility] Comment on above: Order Comment: Speci men Type: BLOOD SPECIMEN Ordering Facility: [facility] Address: [address] [place] [address] Performed By: #### L [id number] #### [facility] CLIA [id number] [address] [place] [address] [place] Platelets (Bld) [#/Vol] 276 10*3/uL Normal 150-400 [facility] Comment on above: Order Comment: Speci men Type: BLOOD SPECIMEN Ordering Facility: [facility] Address: [address] [place] [address] Performed By: #### L [id number] #### [facility] CLIA [id number] [address] [place] [address] [place] RBC (Bld) [#/Vol] 4.37 10*6/uL Normal 3.90-5.20 [facility] Comment on above: Order Comment: Speci men Type: BLOOD SPECIMEN Ordering Facility: [facility] Address: [address] [place] [address] Performed By: #### L [id number] #### [facility] CLIA [id number] [address] [place] [address] [place] WBC (Bld) [#/Vol] 6.41 10*3/uL Normal 3.70-11.00 [facility] Comment on above: Order Comment: Speci men Type: BLOOD SPECIMEN Ordering Facility: [facility] Address: [address] [place] [address] Performed By: #### L [id number] #### [facility] CLIA [id number] [address] [place] [address] [place] CNCOon 11-05-2024 CNCO Letter Text Normal [facility] HBV surface Ag Ser Qlon 10-14 HBV surface Ag Ql (S) Negative Normal Negative [facility] Comment on above: Order Comment: Speci men Type: BLOOD SPECIMENOrdering Facility: [facility] Address: [address] [place] [address] Performed By: #### 5 195-3, 95310-8, 06947-0 ####[facility] [id number] [place] [address] [place] HCV Ab Ser Qlon 11-05-2024 HCV Ab Ql (S) Negative Normal Negative [facility] Comment on above: Order Comment: Speci men Type: BLOOD SPECIMEN Ordering Facility: [facility] Address: [address] [place] [address] Result Comment: The result suggests no evidence of active infection with Hepatitis C virus. Should recent infection be suspected, repeat testing may be considered 4-6 weeks after this draw. Performed By: #### L [id number] #### [facility] CLIA [id number] [address] [place] [address] [place] HGB ELECTROPHORESIS FOR EVAL (LAB ORDER)on 11-05-2024 Hemoglobin A (Bld) [Mass fraction] 97.5 % Normal 96.2-98.0 [facility] Comment on above: Order Comment: Speci men Type: BLOOD SPECIMEN Ordering Facility: [facility] Address: [address] [place] [address] Performed By: #### L [id number] #### [facility] CLIA [id number] [address] [place] [address] [place] Hemoglobin A2 (Bld) [Mass fraction] 2.5 % Normal 2.0-3.1 [facility] Comment on above: Order Comment: Speci men Type: BLOOD SPECIMEN Ordering Facility: [facility] Address: [address] [place] [address] Performed By: #### L [id number] #### [facility] CLIA [id number] [address] [place] [address] [place] Hemoglobin Unsp Elph (Bld) [Mass fraction] No abnormal hemoglobin identified. Normal No abnormal hemoglobin identified. [facility] Comment on above: Order Comment: Speci men Type: BLOOD SPECIMEN Ordering Facility: [facility] Address: [address] [place] [address] Performed By: #### L [id number] #### [facility] CLIA [id number] [address] [place] [address] [place] HGB EVALUATION CASCADE INTER Sarbjit 11-05-2024 Hemoglobin pattern (Bld) [Interp] Reviewed by Estephania Edwards M.D., Ph.D Normal [facility] Comment on above: Order Comment: Speci men Type: BLOOD SPECIMEN Ordering Facility: [facility] Address: [address] [place] [address] Performed By: #### L [id number] #### [facility] CLIA [id number] [address] [place] [address] [place] INTERPRETATION (HGB EVAL) Normal [facility] Comment on above: Order Comment: Speci men Type: BLOOD SPECIMEN Ordering Facility: [facility] Address: [address] [place] [address] Result Comment: Hemo globins were analyzed by capillary electrophoresis and CBC red cell parameters were reviewed. No abnormal hemoglobin is identified. There is a normal hemoglobin capillary electrophoresis pattern. Performed By: #### L [id number] #### [facility] CLIA [id number] [address] [place] [address] [place] HIV 1+2 Ab IA Qlon 5 HIV 1 and 2 Ab IA.rapid Nom (S/P/Bld) Normal [facility] Comment on above: Order Comment: Speci men Type: BLOOD SPECIMENOrdering Facility: [facility] Address: [address] [place] [address] Result Comment: Test not indicated. Performed By: #### 5 195-3, 88748-6, 60907-1 ####[facility] [id number] [place] [address] [place] HIV 1+2 Ab+HIV1 p24 Ag IA Ql Non-Reactive Normal Nonreactive [facility] Comment on above: Order Comment: Speci men Type: BLOOD SPECIMENOrdering Facility: [facility] Address: [address] [place] [address] Performed By: #### 5 195-3, 60761-1, 24696-8 ####[facility] [id number] [place] [address] [place] HIV immunoassay testing algorithm interpretation (S/P/Bld) [Interp] Normal [facility] Comment on above: Order Comment: Speci men Type: BLOOD SPECIMENOrdering Facility: [facility] Address: [address] [place] [address] Result Comment: No e vidence of HIV-1 or HIV-2 infection. Should recent infection be suspected, repeat testing may be considered 2-3 weeks after this draw. [place] Rev. Code 3701.243(E): This information has been disclosed to you from confidential records protected from disclosure by state law. ???You shall make no further disclosure of this information without the specific, written, and informed release of the individual to whom it pertains or as otherwise permitted by state law. A general authorization for the release of medical or other information is not sufficient for the purpose of the release of HIV test results or diagnoses. Performed By: #### 5 195-3, 49514-8, 41552-5 ####[facility] [id number] [place] [address] [place] HbA1c (Bld)on 11-05-2024 Average glucose Estimated from glycated hemoglobin (Bld) [Mass/Vol] 85 mg/dL Normal [facility] Comment on above: Order Comment: Speci men Type: BLOOD SPECIMEN Ordering Facility: [facility] Address: [address] [place] [address] Result Comment: eAG: (Estimated average glucose) is a calculated value from HgbA1c and is wine sales representative of the average blood glucose level in the last 2-3 month period. Performed By: #### L [id number] #### [facility] CLIA [id number] [address] [place] [address] [place] HbA1c (Bld) [Mass fraction] 4.6 % Normal 4.3-5.6 [facility] Comment on above: Order Comment: Speci men Type: BLOOD SPECIMEN Ordering Facility: [facility] Address: [address] [place] [address] Result Comment: [place] Diabetes Association guidelines indicate that patients with HgbA1c in the range 5.7-6.4% are at increased risk for development of diabetes, and intervention by lifestyle modification may be beneficial. HgbA1c greater or equal to 6.5% is considered diagnostic of diabetes. Performed By: #### L [id number] #### [facility] CLIA [id number] [address] [place] [address] [place] RBC PARAMETERS FOR HB IDon 0 - Erythrocyte distribution width (RBC) [Ratio] 12.7 % Normal 11.5-15.0 [facility] Comment on above: Order Comment: Kacie euceda Type: BLOOD SPECIMEN Ordering Facility: [facility] Address: [address] [place] [address] Performed By: #### L [id number] #### [facility] CLIA [id number] [address] [place] [address] [place] Hematocrit (Bld) [Volume fraction] 38.0 % Normal 36.0-46.0 [facility] Comment on above: Order Comment: Kacie euceda Type: BLOOD SPECIMEN Ordering Facility: [facility] Address: [address] [place] [address] Performed By: #### L [id number] #### [facility] CLIA [id number] [address] [place] [address] [place] Hemoglobin (Bld) [Mass/Vol] 12.4 g/dL Normal 11.5-15.5 [facility] Comment on above: Order Comment: Speci men Type: BLOOD SPECIMEN Ordering Facility: [facility] Address: [address] [place] [address] Performed By: #### L [id number] #### [facility] CLIA [id number] [address] [place] [address] [place] MCH (RBC) [Entitic mass] 28.1 pg Normal 26.0-34.0 [facility] Comment on above: Order Comment: Speci men Type: BLOOD SPECIMEN Ordering Facility: [facility] Address: [address] [place] [address] Performed By: #### L [id number] #### [facility] CLIA [id number] [address] [place] [address] [place] MCHC (RBC) [Mass/Vol] 32.6 g/dL Normal 30.5-36.0 [facility] Comment on above: Order Comment: Speci men Type: BLOOD SPECIMEN Ordering Facility: [facility] Address: [address] [place] [address] Performed By: #### L [id number] #### [facility] CLIA [id number] [address] [place] [address] [place] MCV (RBC) [Entitic vol] 86.0 fL Normal 80.0-100.0 [facility] Comment on above: Order Comment: Speci men Type: BLOOD SPECIMEN Ordering Facility: [facility] Address: [address] [place] [address] Performed By: #### L [id number] #### [facility] CLIA [id number] [address] [place] [address] [place] RBC (Bld) [#/Vol] 4.42 10*6/uL Normal 3.90-5.20 [facility] Comment on above: Order Comment: Speci men Type: BLOOD SPECIMEN Ordering Facility: [facility] Address: [address] [place] [address] Performed By: #### L [id number] #### [facility] CLIA [id number] [address] [place] [address] [place] RUBELLA IGG ANTIBODYon 11-05 RUBELLA IGG AB, QUAL Positive Normal Positive [facility] Comment on above: Order Comment: Speci men Type: BLOOD SPECIMENOrdering Facility: [facility] Address: [address] [place] [address] Result Comment: The result suggests recent or past exposure to Rubella virus or history of Rubella vaccination. Positive result may also be seen due to presence of passively-transferred antibodies. Please correlate with patient's history. Performed By: #### R [id number] ####[facility] [id number] [place] [address] [place] Reagin and Treponema pallidu m IgG and IgM [Interp]on 11-05-2024 T. pallidum IgG+IgM IA Ql (S) Non-Reactive Normal Nonreactive [facility] Comment on above: Order Comment: Speci [facility] Type: BLOOD SPECIMENOrdering Facility: [facility] Address: [address] [place] [address] Performed By: #### 5 195-3, 56911-7, 93199-4 ####[facility]IA [id number] [place] [address] [place] Reagin+T pallidum IgG+IgM Se rPl-Impon 11-05-2024 Reagin and Treponema pallidum IgG and IgM [Interp] Cannot exclude recent Treponemal infection if specimen collected within 7-10 days after appearance of suspect lesions or 2-3 weeks after an exposure. Clinical correlation is required. Normal [facility] Comment on above: Order Comment: Speci [facility] Type: BLOOD SPECIMENOrdering Facility: [facility] Address: [address] [place] [address] Performed By: #### 5 195-3, 38393-7, 33279-8 ####[facility] [id number] [place] [address] [place] TYPE + SCREEN PRENATALon ABO A Normal [facility] Comment on above: Order Comment: Speci men Type: BLOOD SPECIMENOrdering Facility: [facility] Address: [address] [place] [address] Performed By: #### T SPN ####[facility] [id number] [place] [address] [place] Rh Nom (Bld) Positive Normal [facility] Comment on above: Order Comment: Speci men Type: BLOOD SPECIMENOrdering Facility: [facility] Address: [address] [place] [address] Performed By: #### T SPN ####[facility] [id number] [place] [address] [place] TYPE AND SCREEN EXPIRATION 11/08/2024 23:59 Normal [facility] Comment on above: Order Comment: Speci men Type: BLOOD SPECIMENOrdering Facility: [facility] Address: [address] [place] [address] Performed By: #### T SPN ####[facility] [id number] [place] [address] [place] Bacteria Ur Culton 5 Bacteria identified Cx Nom (U) ORGANISM ID: 1 >=100,000 CFU/ml Normal urogenital jesenia Normal [facility] Comment on above: Performed By: #### 6 30-4 ####[facility] [id number] [place] [address] [place] C. trachomatis+N. gonorrhoea e DNA LUCIA+probe Ql (Unsp spec)on 10-27-2024 C. trachomatis rRNA LUCIA+probe Ql (Unsp spec) Not detected Normal Not detected [facility] Comment on above: Order Comment: Speci men Type: BLOOD SPECIMEN Ordering Facility: [facility] Address: [address] [place] [address] Performed By: #### L [id number] #### [facility] CLIA [id number] [address] [place] [address] [place] N. gonorrhoeae rRNA LUCIA+probe Ql (Unsp spec) Not detected Normal Not detected [facility] Comment on above: Order Comment: Speci men Type: BLOOD SPECIMEN Ordering Facility: [facility] Address: [address] [place] [address] Performed By: #### L [id number] #### [facility] CLIA [id number] [address] [place] [address] [place] PAP TESTon 10-27-2024 ADEQUACY Satisfactory for interpretation. Normal [facility] Comment on above: Order Comment: Speci men Type: FLUID SPECIMENOrdering Facility: [facility] Address: [address] [place] [address] Performed By: #### L [id number] ####[facility] [id number] [place] [address] [place] CASE REPORT Normal [facility] Comment on above: Order Comment: Speci men Type: FLUID SPECIMENOrdering Facility: [facility] Address: [address] [place] [address] Result Comment: Gyne cologic Cytology Report Case: [id number] Authorizing Provider: Alli Forrester APRN.RADIO PROGRAM DIRECTOR Collected: 10/27/2024 10:01 AM Ordering Location: OB/Gynecology Received: 10/27/2024 12:21 PM First Screen: Deb Mares, CT, ASCP Specimen: Pap Test, ThinPrep, Cervix Performed By: #### L [id number] ####[facility] [id number] [place] [address] [place] CLINICAL HISTORY, CYTOLOGY, FERRY CAPTAIN (Indicate Weeks) Normal [facility] Comment on above: Order Comment: Speci men Type: FLUID SPECIMENOrdering Facility: [facility] Address: [address] [place] [address] Performed By: #### L [id number] ####[facility] [id number] [place] [id number] [place] FINAL PERFORMING LAB Normal [facility] Comment on above: Order Comment: Speci men Type: FLUID SPECIMENOrdering Facility: [facility] Address: [address] [place] [address] Result Comment: Tech nical component, fermenter helper screening performed at [facility], [address] [place], [place] [id number] CLIA# [id number] Diagnostic interpretation performed at [facility], [address] [place] [address] CLIA# [id number] Master Fisher: Mike Tyson M.D. Performed By: #### L [id number] ####[facility] [id number] [place] [address] [place] INTERPRETATION, CYTOLOGY, FERRY CAPTAIN Normal [facility] Comment on above: Order Comment: Speci men Type: FLUID SPECIMENOrdering Facility: [facility] Address: [address] [place] [address] Result Comment: Nega tive for intraepithelial lesion or malignancy. Performed By: #### L [id number] ####[facility] [id number] [place] [id number] [place] LMP 08/31/2024 Normal [facility] Comment on above: Order Comment: Speci men Type: FLUID SPECIMENOrdering Facility: [facility] Address: [address] [place] [address] Performed By: #### L [id number] ####[facility] [id number] [address] [place] PAP DISCLAIMER COMMENT The Pap Smear is a screening test for cervical cancer. False negative results occur with all screening tests, emphasizing the need for rescreening at recommended intervals, and clinical correlation. Normal [facility] Comment on above: Order Comment: Speci men Type: FLUID SPECIMENOrdering Facility: [facility] Address: [address] [place] [address] Performed By: #### L [id number] ####[facility] [id number] [address] [place] PAP CREATIVE GURU COMMENT This specimen has been analyzed by the ThinPrep Imaging System, an automated imaging and review system, which assists the laboratory in evaluating cells on ThinPrep Pap tests. Following automated imaging, selected cevallos from every slide are reviewed by a fermenter helper. Normal [facility] Comment on above: Order Comment: Speci men Type: FLUID SPECIMENOrdering Facility: [facility] Address: [address] [place] [address] Performed By: #### L [id number] ####[facility]CL[facility] [id number] [address] [place] POC PROCESS VALIDATION ENGINEER ULTRASOUNDon 10-27-19 25 Indication Viability; confirm cardiac activity Impression Single intrauterine gestational sac, CRL is appropriate for clinical dates, corresponding to COREY 06/07/25 cardiac activity is visualized Recommendations Follow up for NT scan if desired Method Transabdominal ultrasound examination, Transvaginal ultrasound examination. View: Adequate visualization Waldron . Number of embryos: 1 Dating LMP on: 08/31/2024 GA by LMP 8 w + 1 d COREY by LMP: 06/07/2025 Ultrasound examination on: 10/27/2024 GA by U/S based upon: CRL GA by U/S 8 w + 6 d COREY by U/S: 06/02/2025 Assigned: based on the LMP, selected on 10/27/2024 Assigned GA 8 w + 1 d Assigned COREY: 06/07/2025 Biometry Standard FHR 183 bpm CRL 22.1 mm 8w 6d >99% Hadlock Assessment Gestational sac: visualized Location: intrauterine Yolk sac: visualized Embryo: visualized CRL 22.1 mm 8w 6d >99% Hadlock Cardiac activity: present FHR 183 bpm General Evaluation Cardiac activity present. FHR 183 bpm Performed By: Alli Forrester NP Read By: Alli Forrester NP MATERNAL MEDICINE [facility] Radiology Study observation (narrative) [facility] 25(OH)D3 [facility] 25-hydroxyvitamin D3 [Mass/Vol] 35.5 ng/mL Normal 31.0-80.0 [facility] Comment on above: Order Comment: Speci men Type: BLOOD SPECIMENOrdering Facility: [facility] Address: [address] [place] [address] Result Comment: Clas sification of 25 [place] Vitamin D status: Deficiency/Insufficiency: < or = 30 ng/ml. Sufficiency/Optimal Levels: 31-80 ng/mL Toxicity: > 100 ng/mL. Test performed by chemiluminescent immunoassay. Performed By: #### 1 989-3 ####[facility]IA [id number] [address] OF [facility] Gutierrez 08-23-2024 CNPN Telephone (4CQ) ---- HOWARD SALDIVAR ([id number]) 03 F [facility] Date Time Provider Department 08/23/24 KIM WARD 4CQ During your visit today, we recorded the following information about you: Arlene Cronin 08/23/2024 12:15 PM Signed Patient was expecting to have another Vit D lab test but has no orders. Can you place a Vit D blood lab test? Please advise. Arlene Cronin, Kim Peralta DO 08/23/2024 2:26 PM Signed It had been ordered for May so it , reordered. Allergies As of Date: 08/23/2024 Noted Allergy Reaction CATS 01/06/2023 9 - Itching DUST 01/06/2023 9 - Itching 14 - Other: See Comments GRASS POLLEN 03/14/2021 2 - Rash Comments: Sneezing and Rash Date Reviewed: 07/24/2024 Reviewed by: Shmuel Merlos APRN.RADIO PROGRAM DIRECTOR - Fully Assessed Reason for Visit: Patient Update [1234] Cmt: Pt was informed lab orders are in. Primary Visit Diagnosis:Vitamin D deficiency [E55.9] Order(s):VITAMIN D 25 HYDROXY [SQVITD] Order #: [id number] FUTURE Prescriptions as of 08/23/2024 - vit/iron fum/folic ac ( 1 + 1 ORAL) Take by mouth. - ergocalciferol 50,000 unit capsule (VITAMIN D2, DRISDOL) Take 1 capsule by mouth one time a week. Use as directed. - albuterol HFA (VENTOLIN HFA) 90 mcg/actuation inhaler Inhale 2 Puffs as instructed every 4 hours as needed for wheezing/shortness of breath. - ondansetron (ZOFRAN) 4 mg tablet Take 1 tablet by mouth every 8 hours as needed for nausea/vomiting. - rizatriptan (MAXALT) 10 mg tablet Take 1 tablet (10 mg) by mouth as needed. May repeat in 2 hours if needed Problem List As Of Date 08/23/2024 Noted Resolved TBI (traumatic brain injury) ([facility]) [S06.9XAA] 05/06/2022 Depression [F32.A] 05/06/2022 Migraine with aura, not intractable, without st*05/06/2022 BMI 29.0-29.9,adult [Z68.29] 05/06/2022 Eating disorder [F50.9] 06/13/2023 Vasovagal syncope [R55] 09/10/2023 GERD (gastroesophageal reflux disease) [K21.9] 09/10/2023 Encounter Status:Closed by SHERRI PRAJAPATI on 08/23/24 Normal [facility] Bacteria Ur Culton 4 Bacteria identified Cx Nom (U) CULTURE, URINE: Mixed microbiota, including predominantly: ORGANISM ID: 2 >=100,000 CFU/ml Staphylococcus saprophyticus Routine susceptibility testing of S. saprophyticus urine isolates is not performed because uncomplicated UTIs respond to urine concentrations of agents commonly used (e.g. Nitrofurantoin, TMP/SMX, or a quinolone). Normal [facility] Comment on above: Performed By: #### 6 30-4 ####[facility] LABCLIA [id number] [facility] [id number] [place], [place] [id number] [facility] CNOVon 07-24-2024 CNOV Office Visit (WALKWA) ---- HOWARD SALDIVAR ([id number]) 03 [facility] Date Time Provider Department 07/24/24 9:55 AM SHMUEL MERLOS During your visit today, we recorded the following information about you: Temperature Pulse Respiration Blood pressure 97.8 degrees 81/minute 18/minute 106/73 Weight 83 kg Shmuel Merlos APRN.RADIO PROGRAM DIRECTOR 07/24/2024 11:27 AM Signed Subjective The history is provided by the patient. No ecd was used. UTI This is a new problem. Episode onset: 6 days ago. The problem has been gradually worsening. The quality of the pain is described as burning. There has been no fever. She is Sexually active (states not concerned for STI's). There is No history of pyelonephritis. Associated symptoms include nausea (this am, states gets frequent nausea and unsure if related to UTI, currently being worked up by PCP) and frequency. Pertinent negatives include no chills, no vomiting, no hematuria, no urgency and no flank pain. She has tried acetaminophen for the symptoms. Her past medical history does not include kidney stones, urological procedure, recurrent UTIs or catheterization. Review of Systems Constitutional: Negative for chills, fatigue and fever. Respiratory: Negative for shortness of breath and wheezing. Gastrointestinal: Positive for abdominal pain (suprapubic) and nausea (this am, states gets frequent nausea and unsure if related to UTI, currently being worked up by PCP). Negative for diarrhea and vomiting. Genitourinary: Positive for dysuria and frequency. Negative for flank pain, hematuria and urgency. LMP - 07/08, currently trying to get , states ovulated early this month. Recent antibiotic use - Bactrim 2 months ago for UTI. vit/iron fum/folic ac ( 1 + 1 ORAL) Take by mouth. ergocalciferol 50,000 unit capsule (VITAMIN D2, DRISDOL) Take 1 capsule by mouth one time a week. Use as directed. albuterol HFA (VENTOLIN HFA) 90 mcg/actuation inhaler Inhale 2 Puffs as instructed every 4 hours as needed for wheezing/shortness of breath. ondansetron (ZOFRAN) 4 mg tablet Take 1 tablet by mouth every 8 hours as needed for nausea/vomiting. rizatriptan (MAXALT) 10 mg tablet Take 1 tablet (10 mg) by mouth as needed. May repeat in 2 hours if needed ALLERGIES Allergen Reactions Cats Itching Dust Itching, Other: See Comments Grass Pollen Rash Sneezing and Rash ACTIVE PROBLEM LIST Tbi (Traumatic Brain Injury) (Hcc) Depression Migraine With Aura, Not Intractable, Without Status Migrainosus Bmi 29.0-29.9,Adult Eating Disorder Vasovagal Syncope Gerd (Gastroesophageal Reflux Disease) Physical Exam Vitals and nursing note reviewed. Constitutional: General: She is not in acute distress. Appearance: Normal appearance. She is not toxic-appearing. Cardiovascular: Rate and Rhythm: Normal rate. Pulmonary: Effort: Pulmonary effort is normal. No accessory muscle usage, respiratory distress or retractions. Abdominal: Palpations: Abdomen is soft. Abdomen is not rigid. Tenderness: There is no abdominal tenderness. There is no right CVA tenderness or left CVA tenderness. Skin: General: Skin is warm and dry. Capillary Refill: Capillary refill takes less than 2 seconds. Neurological: Mental Status: She is alert and oriented to person, place, and time. BP 106/73 Pulse 81 Temp 36.6 ?C (97.8 ?F) Resp 18 Wt 83 kg (182 lb 15.7 oz) LMP 07/03/2023 (Exact Date) SpO2 100% BMI 27.82 kg/m2 ASSESSMENT/PLAN: Encounter Diagnosis ICD-10-CM 1. Acute cystitis with hematuria N30.01 URINE CULTURE UA DIP, URINE (POC) HCG QUAL UR B/O cephALEXin (KEFLEX) 500 mg capsule Results for orders placed or performed in visit on 07/24/24 UA DIP, URINE (POC) Result Value Ref Range GLUCOSE UA (POCT) Negative Negative mg/dL BILIRUBIN UA (POCT) Negative Negative KETONE UA (POCT) Negative Negative mg/dL SPECIFIC GRAVITY UA (POCT) >=1.030 1.005 - 1.030 HEMOGLOBIN/BLOOD UA (POCT) Trace-intact (A) Negative PH UA (POCT) 7.0 4.5 - 8.0 PROTEIN UA (POCT) Trace (A) Negative mg/dL UROBILINOGEN UA (POCT) 0.2 Normal E.U./dL NITRITE UA (POCT) Negative Negative LEUKOCYTES UA (POCT) Small (A) Negative COLOR UA (POCT) Dark yellow CLARITY UA (POCT) Cloudy UA DIP,URINE HCG (POC) Result Value Ref Range Urine hCG (POCT) Negative Negative [employer] (POCT) Internal QC OK - URINE CULTURE - sent to lab, will call if any changes need to be made. - Push fluids - Tylenol or Motrin prn - If symptoms worsen - any fevers, chills, flank pain, nausea or vomiting - go to ED, these could be signs that the infection is moving into your kidneys. - See patient instructions for further recommendations. - Pt education along with discharge instructions given to pt - Discussed Red Flag signs and when to go to ER. - Pt agreeable with plan and verbalizes unders (more content not included)... Normal [facility] UA DIP, URINE (POC)on 2023 BILIRUBIN UA (POCT) Negative Negative [facility] CLARITY UA (POCT) Cloudy [facility] COLOR UA (POCT) Dark yellow [facility] GLUCOSE UA (POCT) Negative Negative mg/dL [facility] Hemoglobin Ql (U) Trace-intact Abnormal Negative [facility] Interpretation and review of laboratory results Abnormal [facility] KETONE UA (POCT) Negative Negative mg/dL [facility] LEUKOCYTES UA (POCT) Small Abnormal Negative [facility] NITRITE UA (POCT) Negative Negative [facility] PH UA (POCT) 7.0 4.5 - 8.0 [facility] Protein Ql (U) Trace Abnormal Negative mg/dL [facility] SPECIFIC GRAVITY UA (POCT) >=1.030 1.005 - 1.030 [facility] UROBILINOGEN UA (POCT) 0.2 Normal E.U./d L [facility] Location:[facility], [address], [place], [address] [place] [address] POINT OF CARE [facility] UA DIP,URINE HCG (POC)on Beta HCG ( test) Ql (U) Negative Negative [facility] Comment on above: Location:[facility], [address] [place] [address], [facility] [employer] (POCT) Internal QC [facility] Location:[facility], [address] [place] [address], [address] [place] [address] POINT OF CARE [facility] UA DIP, URINE (POC)on 2023 BILIRUBIN UA (POCT) Negative Negative [facility] CLARITY UA (POCT) [facility] COLOR UA (POCT) Dark yellow [facility] GLUCOSE UA (POCT) Negative Negative mg/dL [facility] Hemoglobin Ql (U) Trace-lysed Abnormal Negative [facility] Interpretation and review of laboratory results Abnormal [facility] KETONE UA (POCT) Negative Negative mg/dL [facility] LEUKOCYTES UA (POCT) Small Abnormal Negative [facility] NITRITE UA (POCT) Negative Negative [facility] PH UA (POCT) 7.5 4.5 - 8.0 [facility] Protein Ql (U) 30 mg/dL Abnormal Negative [facility] SPECIFIC GRAVITY UA (POCT) 1.020 1.005 - 1.030 [facility] UROBILINOGEN UA (POCT) 0.2 Normal E.U./d L [facility] Location:[facility], [address], [place], [address] [place] [address] POINT OF CARE [facility] CNOVon 02-24-2024 CNOV Office Visit (CCWRNC) ---- HOWARD SALDIVAR ([id number]) 03 [facility] Date Time Provider Department 02/24/24 12:15 PM [facility] CCWR[facility] During your visit today, we recorded the following information about you: Allergies As of Date: 02/24/2024 Noted Allergy Reaction CATS 01/06/2023 9 - Itching DUST 01/06/2023 9 - Itching 14 - Other: See Comments GRASS POLLEN 03/14/2021 2 - Rash Comments: Sneezing and Rash Date Reviewed: 02/23/2024 Reviewed by: Ines Baker MA - Fully Assessed Reason for Visit: Pain [78] Primary Visit Diagnosis:Unspecifi ed injury of neck, initial encounter [S19.9XXA] Prescriptions as of 02/24/2024 - ergocalciferol 50,000 unit capsule (VITAMIN D2, DRISDOL) Take 1 capsule by mouth one time a week. Use as directed. - albuterol HFA (VENTOLIN HFA) 90 mcg/actuation inhaler Inhale 2 Puffs as instructed every 4 hours as needed for wheezing/shortness of breath. - ondansetron (ZOFRAN) 4 mg tablet Take 1 tablet by mouth every 8 hours as needed for nausea/vomiting. - rizatriptan (MAXALT) 10 mg tablet Take 1 tablet (10 mg) by mouth as needed. May repeat in 2 hours if needed Problem List As Of Date 02/24/2024 Noted Resolved TBI (traumatic brain injury) ([facility]) [S06.9XAA] 05/06/2022 Depression [F32.A] 05/06/2022 Migraine with aura, not intractable, without st*05/06/2022 BMI 29.0-29.9,adult [Z68.29] 05/06/2022 Eating disorder [F50.9] 06/13/2023 Vasovagal syncope [R55] 09/10/2023 GERD (gastroesophageal reflux disease) [K21.9] 09/10/2023 Encounter Status:Closed by EUGENE POLO on 02/24/24 Normal [facility] Chest PA and Lateralon 12-29 Chest PA and Lateral [facility] Imaging Services [address] [place] [address] Chest PA and Lateral MR#: [id number] Acct: [id number] Name: HOWARD SALDIVAR Rep #: [id number] : 2005 F 18 From: Emiliano ely MD PCP: Kim Ward Status: PRE ER Study: Chest PA and Lateral Date of Exam: 12/30/23 Exam# [id number] Ordering Dr: Giovani Fernandez DO -[id number] STUDY: X-RAY CHEST REASON FOR EXAM: Female, 18 years old. Cough, dyspnea TECHNIQUE: PA and lateral views of the chest. COMPARISON: None. FINDINGS: The lungs are clear and expanded. There is no demonstrated pleural abnormality. Normal size heart. Normal mediastinum and tan. Normal visualized pulmonary arteries. Normal visualized aortic arch and descending thoracic aorta. Normal visualized thoracic spine. Normal visualized ribs, clavicles, and shoulders. There is no demonstrated abnormality of the visualized soft tissue structures of the upper abdomen. RAD/Chest PA and Lateral IMPRESSION: Normal x-ray examination of the chest. Electronically Signed: Emiliano House MD at 11:35 EDT , CC: Dr. Giovani Fernandez DO; Kim Ward Nursing Clinical Director: Signed Normal [facility] Emergency Department Summary on 12-30-2023 Emergency Department Summary [facility] Medical Records Department [address] [place] [address] Emergency Department Summary 12/30/23 MR#: [id number] Acct: [id number] Name: HOWARD SALDIVAR Rep #: [id number] : 2005 18 From: Giovani Fernandez DO PCP: Kim Ward Status:DEP ER Location: ED HPI History of Present Illness Chief Complaint: Shortness of Breath Detail of Chief Complaint: Cough and shortness of breath Informant: patient Narrative Narrative: Patient started with nasal drainage and a cough 4 days ago. Seen at urgent care yesterday and had a negative strep screen. Discharged to home. Last night had a hard time sleeping and had some tightness in her chest. She called her PCPs office and was told to come to the ER to get evaluated. Patient has history of asthma. Patient called the office today to try to get inhaler prescribed for her. She denies any fevers. Patient denies recent travel or surgery. She denies chest pain other than some tightness in the anterior chest. PFSH PFSH Medical History Anxiety Depression H/O traumatic brain injury Home Medications ondansetron 4 mg disintegrating tablet 4 mg PO Q8H 06/07/23 [History Last Taken Unknown] rizatriptan 10 mg tablet (Maxalt) See Rx Instructions PO .COMPLEX 06/07/23 [History Last Taken Unknown] prednisone 20 mg tablet 20 mg PO BID #6 tabs 12/30/23 [Rx Last Taken Unknown] Allergy/AdvReac Type Severity Reaction Status Date / Time No Known Allergies Allergy Verified 12/30/23 10:16 Surgical History Hx of tonsillectomy Social History Smoking Status: Never smoker ROS ROS ED Review of Systems ROS Unobtainable: other Constitutional Constitutional ED: Reports lethargy; Denies chills, fever(s), sweats or weight loss Eyes Eyes: Denies blurry vision, change in vision or diplopia ENT ENT ED: Denies rhinorrhea or sore throat Cardiovascular Cardiovascular: Reports racing heartbeat; Denies chest pain or orthopnea Respiratory/Chest Respiratory/Chest: Reports cough, dyspnea and dyspnea on exertion; Denies orthopnea or sputum Gastrointestinal Gastrointestinal: Denies abdominal pain, diarrhea, nausea or vomiting Genitourinary Genitourinary ED: Denies dysuria, hematuria or urinary frequency Musculoskeletal Musculoskeletal: Denies arthralgias, back pain, myalgias or neck pain Integumentary Denies abscess, Abrasions or rash Neurologic Neurologic: Denies headache(s) or weakness Psychiatric Psychiatric: Denies anxiety, depression or suicidal thoughts Endocrine Endocrinology: Denies polydipsia, polyphagia or polyuria Hematologic/Lymphat ic Hematologic/Lymphat ic: Denies easy bleeding, easy bruising or lymphadenopathy Allergic/Immunologi c Allergic/Immunologi c ED: Denies mouth swelling, tongue swelling or urticaria EXAM Physical Exam Const Vital Signs: 12/30/23 10:12 12/30/23 10:13 12/30/23 10:43 Temperature 98.4 F 98.4 F Temperature Source Temporal Temporal Pulse Rate 119 H 124 H Respiratory Rate 16 16 Respiratory Effort Normal Non-Labored Respiratory Depth Normal Respiratory Pattern Normal Blood Pressure 122/73 H 122/73 H Blood Pressure Mean 89 89 Pulse Ox 100 100 Oxygen Delivery Method Room Air Room Air Room Air 12/30/23 10:56 Temperature Temperature Source Pulse Rate 81 Respiratory Rate 19 H Respiratory Effort Respiratory Depth Respiratory Pattern Normal Blood Pressure Blood Pressure Mean Pulse Ox Oxygen Delivery Method Positive well nourished and well developed General Appearance ED: well developed and NAD HEENT Reports TM's clear and moist mucous membranes normocephalic and atraumatic; Negative for trauma or tenderness Tympanic Membrane ED: Yes TM's clear Eyes PERRL and EOMs intact bilaterally General Eye ED: Negative for pale conjunctiva or scleral icterus Neck no lymphadenopathy, supple and no JVD General: Negative for tenderness Chest Wall inspection of chest normal and palpation of chest normal Chest: Negative for tenderness Resp normal respiratory effort and clear to auscultation bilaterally Resp Narrative: Minimal faint wheezes bilaterally. Good aeration bilaterally. No accessory muscle use or retractions. Effort and Inspection: Negative for respiratory distress or pain with movement Auscultation: wheezes; Negative for rhonchi or diminished lung sounds Cardio regular rhythm, S1 normal heart sound, S2 normal heart sound and no murmurs; Negative for regular rate Rate: tachycardic Peripheral Pulses: pulses 2+ throughout GI normal to inspection, nondistended, normoactive bowel sounds, soft to palpation, non-tender, non- (more content not included)... Normal [facility] - Microbiology an d Antimicrobial susceptibilityOrdered By: Giovani Fernandez on 12-30-2023 SARS-CoV-2 (COVID-19) RNA LUCIA+probe Ql (Unsp spec) Influenzae B [facility] M100.678on 12-30-2023 M100.678 Normal Reference Range = Negative COV + FLU + RSV PCR GeneXpert Instrument, PCR method Copy of report sent to Infection Control Printer [id number] 12/30/23 1143 VSICK. SARS-CoV-2 (COVID 19) Negative INFLUENZA A Negative INFLUENZA B Positive RSV PCR Negative INFLUENZA B Positive A Normal [facility] Comment on above: Performed By: #### M 100.678 #### [facility] [address] [facility] [place], [place], [id number] STREP A MOLECULAR (POC)on Procedural Control Valid [facility] Strep A (POCT) Negative Negative [facility] CBC W Auto Differential pane l (Bld)on 06-13-2023 Basophils (Bld) [#/Vol] 0.05 10*3/uL <0.11 k/uL [facility] Basophils/100 WBC (Bld) 0.5 % [facility] Differential cell count method Nom (Bld) Auto [facility] Eosinophils (Bld) [#/Vol] 0.10 10*3/uL <0.46 k/ uL [facility] Eosinophils/100 WBC (Bld) 1.0 % [facility] Erythrocyte distribution width (RBC) [Ratio] 12.3 % 11.5 - 15.0 % [facility] Hematocrit (Bld) [Volume fraction] 38.7 % 36.0 - 46.0 % [facility] Hemoglobin (Bld) [Mass/Vol] 12.8 g/dL 11.5 - 15.5 g/dL [facility] Immature granulocytes (Bld) [#/Vol] <0.10 k/uL [facility] Immature granulocytes/100 WBC (Bld) 0.2 % [facility] Lymphocytes (Bld) [#/Vol] 2.46 10*3/uL 1. 00 - 4.00 k/uL [facility] Lymphocytes/100 WBC (Bld) 25.0 % [facility] MCH (RBC) [Entitic mass] 28.4 pg 26.0 - 34.0 pg [facility] MCHC (RBC) [Mass/Vol] 33.1 g/dL 30.5 - 36.0 g/dL [facility] MCV (RBC) [Entitic vol] 86.0 fL 80.0 - 100.0 fL [facility] Monocytes (Bld) [#/Vol] 0.59 10*3/uL <0.87 k/uL [facility] Monocytes/100 WBC (Bld) 6.0 % [facility] Neutrophils (Bld) [#/Vol] 6.61 10*3/uL 1. 45 - 7.50 k/uL [facility] Neutrophils/100 WBC (Bld) 67.3 % [facility] Nucleated RBC (Bld) [#/Vol] <0.01 k/uL [facility] Nucleated RBC/100 WBC (Bld) [Ratio] 0.0 /100 WBC [facility] Platelet mean volume (Bld) [Entitic vol] 9.7 fL 9.0 - 12.7 fL [facility] Platelets (Bld) [#/Vol] 297 10*3/uL 150 - 400 k /uL [facility] RBC (Bld) [#/Vol] 4.50 10*6/uL 3.90 - 5.2 0 m/uL [facility] WBC (Bld) [#/Vol] 9.83 10*3/uL 3.70 - 11. 00 k/uL [facility] Comprehensive metabolic 2000 panelon 06-13-2023 Albumin [Mass/Vol] 4.7 g/dL 3.9 - 4.9 g/dL Cl [facility] ALP [Catalytic activity/Vol] 67 U/L 34 - 123 U/L [facility] ALT [Catalytic activity/Vol] 21 U/L 7 - 38 U/L [facility] Anion gap [Moles/Vol] 12 mmol/L 9 - 18 mmol/L [facility] AST [Catalytic activity/Vol] 16 U/L 13 - 35 U/L [facility] Bilirubin [Mass/Vol] 0.2 mg/dL 0.2 - 1 .3 mg/dL [facility] Calcium [Mass/Vol] 9.8 mg/dL 8.5 - 10. 2 mg/dL [facility] Chloride [Moles/Vol] 100 mmol/L 97 - 10 5 mmol/L [facility] CO2 [Moles/Vol] 26 mmol/L 22 - 30 mmol/L [facility] Creatinine [Mass/Vol] 0.66 mg/dL 0.58 - 0.96 mg/dL [facility] Estimated Glomerular Filtration Rate 129 mL/min/1.73m >=60 mL/min/1.73m [facility] Glucose [Mass/Vol] 84 mg/dL 74 - 99 mg/dL [facility] Potassium [Moles/Vol] 4.0 mmol/L 3.7 - 5.1 mmol/L [facility] Protein [Mass/Vol] 7.6 g/dL 6.3 - 8.0 g/dL Cl [facility] Sodium [Moles/Vol] 138 mmol/L 136 - 144 mmol/L [facility] Urea nitrogen [Mass/Vol] 16 mg/dL 7 - 21 mg/d L [facility] Absolute lymphocyte countOrd ered By: Mandy Minal on 06-07-2023 Lymphocytes Auto (Unsp spec) [#/Vol] 2.37 10*3/uL 0.83-4.51 [facility] Basophil percentageOrdered B y: Mandy Minal on 06-07-2023 Basophils/100 WBC (Bld) 0.5 % 0-1 [facility] Chloride [Moles/Vol] 108 mmol/L 98-107 [facility] Eosinophils/100 WBC (Bld) 1.0 % 0-5 [facility] Glucose [Mass/Vol] 93 mg/dL 74-106 [facility] Neutrophils (Bld) [#/Vol] 4.9 10*3/uL 2.0-7.7 [facility] Neutrophils/100 WBC (Bld) 61.0 % 47-70 [facility] Potassium [Moles/Vol] 3.8 mmol/L 3.5-5.1 [facility] Sodium [Moles/Vol] 139 mmol/L 136-145 [facility] WBC (Bld) [#/Vol] 8.0 10*3/uL 4.4-11.0 [facility] Beta hCG serum qualOrdered B y: Mandy Fontaine on 06-07-2023 Beta HCG ( test) Ql Negative [facility] Blood erythrocytes count (nu mber/volume)Ordered By: Mandy Fontaine on 06-07-2023 RBC (Bld) [#/Vol] 4.80 10*6/uL 4.2-5.4 [facility] Blood hemoglobin measurement (mass/volume)Ordered By: Mandy Fontaine on 06-07-2023 Hemoglobin (Bld) [Mass/Vol] 13.3 g/dL 12.0-15.0 [facility] Blood lymphocytes/100 leukoc ytesOrdered By: Mandy Fontaine on 06-07-2023 Lymphocytes/100 WBC (Bld) 29.7 % 19-41 [facility] Blood monocytes/100 leukocyt esOrdered By: Mandy Fontaine on 06-07-2023 Monocytes/100 WBC (Bld) 7.4 % 0-10 [facility] Blood platelet mean volumeOr dered By: Mandy Fontaine on 06-07-2023 Platelet mean volume (Bld) [Entitic vol] 10.0 fL 6.2-12.0 [facility] Determination of erythrocyte mean corpuscular volume (MCV)Ordered By: Mandy Fontaine on 06-07-2023 MCV (RBC) [Entitic vol] 87.1 fL 81-99 [facility] Hematocrit Auto (Bld) [Volum e fraction]Ordered By: Mandy Fontaine on 06-07-2023 Hematocrit (Bld) [Volume fraction] 41.8 % 37-47 [facility] - Chemistry and C hemistry - challengeOrdered By: Mandy Fontaine on 06-07-2023 CO2 [Moles/Vol] 26.0 mmol/L 21.0-32.0 [facility] Urea nitrogen/Creatinine [Mass ratio] 15.7 mg/mg 10-20 [facility] - Hematology and Cell countsOrdered By: Mandy Fontaine on 06-07-2023 Erythrocyte distribution width (RBC) [Entitic vol] 40.2 fL 35.1-43.9 [facility] Erythrocyte distribution width (RBC) [Ratio] 12.6 % 11.6-14.6 [facility] Immature granulocytes/100 WBC (Bld) 0.400 % 0.0-0.9 [facility] Comment on above: IG% - Immature Granu locytes (promyelocytes, myelocytes and metamyelocytes) > 1% indicates that a LEFT SHIFT is Present. MCH (RBC) [Entitic mass] 27.7 pg 27.0-32.0 [facility] Nucleated RBC/100 WBC (Bld) [Ratio] 0 % 0-5 [facility] MCHC Auto (RBC) [Mass/Vol]Or dered By: Mandy Fontaine on 06-07-2023 MCHC (RBC) [Mass/Vol] 31.8 g/dL 32-36 [facility] No Panel InformationOrdered By: Mandy Fontaine on 06-07-2023 Estimated Creatinine Clearance Calc 109.07 ml/min [facility] Estimated GFR (MDRD) Amer 113 mL/min >60 [facility] Comment on above: GFR Calc Estimated GFR (MDRD) Non-Af Amer 93 mL/min >60 [facility] Comment on above: Non- GFR Calc Platelets bldOrdered By: Opal Fontaine on 06-07-2023 Platelets (Bld) [#/Vol] 321 10*3/uL 150-450 [facility] Serum or plasma calcium debi urement (mass/volume)Ordered By: Mandy Fontaine on 06-07-2023 Calcium [Mass/Vol] 9.3 mg/dL 8.5-10.1 [facility] Serum or plasma creatinine m easurement (mass/volume)Ordered By: Mandy Fontaine on 06-07-2023 Creatinine [Mass/Vol] 0.83 mg/dL 0.55-1.02 [facility] Comment on above: The validity of the calculated GFR & GFRAA in patients over 70 years has not been determined. Clinical correlation is essential. Serum or plasma urea nitroge n measurement (mass/volume)Ordered By: Mandy Fontaine on 06-07-2023 Urea nitrogen [Mass/Vol] 13 mg/dL 7-18 [facility] Thin prep Papanicolaou smear with manual screeningOrdered By: Mandy Fontaine on 06-07-2023 Thin prep Papanicolaou smear with manual screening 5-15 [facility] HCG QUAL UR B/Oon 08-16-2022 status Negative Abnormal neg - pos [facility] Quality Check Yes Abnormal [facility] Comprehensive metabolic 2000 panelon 05-10-2022 Albumin [Mass/Vol] 4.8 g/dL Normal 3.9-4.9 [facility] Comment on above: Order Comment: Speci men Type: BLOOD SPECIMEN Ordering Facility: [facility] Address: [address] [place] [address] Performed By: #### 2 [id number] #### [facility] CLIA [id number] [address] ALP [Catalytic activity/Vol] 85 U/L Normal 34-123 [facility] Comment on above: Order Comment: Speci men Type: BLOOD SPECIMEN Ordering Facility: [facility] Address: [address] [place] [address] Performed By: #### 2 4323-8 #### [facility] CLIA [id number] [address] STATES [facility] ALT [Catalytic activity/Vol] 11 U/L Normal 7-38 [facility] Comment on above: Order Comment: Speci men Type: BLOOD SPECIMEN Ordering Facility: [facility] Address: [address] [place] [address] Performed By: #### 2 4323-8 #### [facility] CLIA [id number] [address] [place] [address] [place] [facility] Anion gap [Moles/Vol] 10 mmol/L Normal 9-18 [facility] Comment on above: Order Comment: Speci men Type: BLOOD SPECIMEN Ordering Facility: [facility] Address: [address] [place] [address] Performed By: #### 2 4323-8 #### [facility] CLIA [id number] [address] [place] [address] [place] AST [Catalytic activity/Vol] 14 U/L Normal 13-35 [facility] Comment on above: Order Comment: Speci men Type: BLOOD SPECIMEN Ordering Facility: [facility] Address: [address] [place] [address] Performed By: #### 2 4323-8 #### [facility] CLIA [id number] [address] [place] [address] [place] Bilirubin [Mass/Vol] 0.2 mg/dL Normal 0.2-1.3 [facility] Comment on above: Order Comment: Speci men Type: BLOOD SPECIMEN Ordering Facility: [facility] Address: [address] [place] [address] Performed By: #### 2 4323-8 #### [facility] CLIA [id number] [address] [place] [address] [place] Calcium [Mass/Vol] 9.7 mg/dL Normal 8.5-10.2 [facility] Comment on above: Order Comment: Speci men Type: BLOOD SPECIMEN Ordering Facility: [facility] Address: [address] [place] [address] Performed By: #### 2 4323-8 #### [facility] CLIA [id number] [address] [place] [address] [place] Chloride [Moles/Vol] 102 mmol/L Normal 97-105 [facility] Comment on above: Order Comment: Speci men Type: BLOOD SPECIMEN Ordering Facility: [facility] Address: [address] [place] [address] Performed By: #### 2 4323-8 #### [facility] CLIA [id number] [address] [place] [address] [place] CO2 [Moles/Vol] 30 mmol/L Normal 22-30 [facility] Comment on above: Order Comment: Speci men Type: BLOOD SPECIMEN Ordering Facility: [facility] Address: [address] [place] [address] Performed By: #### 2 4323-8 #### [facility] CLIA [id number] [address] [place] [address] [place] Creatinine [Mass/Vol] 0.71 mg/dL Normal 0.58-0.96 [facility] Comment on above: Order Comment: Speci men Type: BLOOD SPECIMEN Ordering Facility: [facility] Address: [address] [address] Performed By: #### 2 4323-8 #### [facility] CLIA [id number] [address] [place] [address] [place] ESTIMATED GLOMERULAR FILTRATION RATE 126 mL/min/1.73m??? Normal >=60 [facility] Comment on above: Order Comment: Kacie euceda Type: BLOOD SPECIMEN Ordering Facility: [facility] Address: [address] [place] [address] Result Comment: Kirsten mated Glomerular Filtration Rate (eGFR) is calculated using the 2020 CKD-EPI creatinine equation. This equation utilizes serum creatinine, sex, and age as parameters. The creatinine assay has traceable calibration to isotope dilution-mass spectrometry. Refer to KDIGO guidelines for clinical interpretation. In patients with unstable renal function, e.g. those with acute kidney injury, the eGFR may not accurately reflect actual GFR. Performed By: #### 2 4323-8 #### [facility] CLIA [id number] [address] [place] [address] [place] Glucose [Mass/Vol] 94 mg/dL Normal 74-99 [facility] Comment on above: Order Comment: Kacie euceda Type: BLOOD SPECIMEN Ordering Facility: [facility] Address: [address] [place] [address] Result Comment: The [place] Diabetes Association (ADA) provides guidance for cutoff values for fasting glucose and random glucose. The ADA defines fasting as no caloric intake for at least 8 hours. Fasting plasma glucose results between 100 to 125 mg/dL indicate increased risk for diabetes (prediabetes). Fasting plasma glucose results greater than or equal to 126 mg/dL meet the criteria for diagnosis of diabetes. In the absence of unequivocal hyperglycemia, results should be confirmed by repeat testing. In a patient with classic symptoms of hyperglycemia or hyperglycemic crisis, random plasma glucose results greater than or equal to 200 mg/dL meet the criteria for diagnosis of diabetes. Reference: Standards of Medical Care in Diabetes 2016, [place] [employer] Association. Diabetes Care. 2016.39(Suppl 1). Performed By: #### 2 4323-8 #### [facility] CLIA [id number] [address] [place] [address] [place] Potassium [Moles/Vol] 4.0 mmol/L Normal 3.7-5.1 [facility] Comment on above: Order Comment: Speci men Type: BLOOD SPECIMEN Ordering Facility: [facility] Address: [address] [place] [address] Performed By: #### 2 4323-8 #### [facility] CLIA [id number] [address] [place] [address] [place] Protein [Mass/Vol] 7.5 g/dL Normal 6.3-8.0 [facility] Comment on above: Order Comment: Speci men Type: BLOOD SPECIMEN Ordering Facility: [facility] Address: [address] [place] [address] Performed By: #### 2 4323-8 #### [facility] CLIA [id number] [address] [place] [address] [place] Sodium [Moles/Vol] 142 mmol/L Normal 136-144 [facility] Comment on above: Order Comment: Sami men Type: BLOOD SPECIMEN Ordering Facility: [facility] Address: [address] [place] [address] Performed By: #### 2 4323-8 #### [facility] CLIA [id number] [address] [place] [address] [place] Urea nitrogen [Mass/Vol] 9 mg/dL Normal 7-21 [facility] Comment on above: Order Comment: Sami ok Type: BLOOD SPECIMEN Ordering Facility: [facility] Address: [address] [place] [address] Performed By: #### 2 4323-8 #### [facility] CLIA [id number] [address] [place] [address] [place] HCV Ab Ser Qlon 05-10-2022 HCV Ab Ql (S) Negative Normal Negative [facility] Comment on above: Order Comment: Sami men Type: BLOOD SPECIMEN Ordering Facility: [facility] Address: [address] [place] [address] Result Comment: The result suggests no evidence of active infection with Hepatitis C virus. Should recent infection be suspected, repeat testing may be considered 4-6 weeks after this draw. Performed By: #### 1 6128-1 #### [facility] CLIA [id number] [address] [place] [address] [place] HIV 1+2 Ab IA Qlon 2 HIV 1 and 2 Ab IA.rapid Nom Normal [facility] Comment on above: Order Comment: Speci men Type: BLOOD SPECIMEN Ordering Facility: [facility] Address: [address] [place] [address] Result Comment: Test not indicated. Performed By: #### 3 1201-7 #### [facility] CLIA [id number] [address] [place] [address] HIV 1+2 Ab+HIV1 p24 Ag IA Ql Non-Reactive Normal Nonreactive [facility] Comment on above: Order Comment: Speci men Type: BLOOD SPECIMEN Ordering Facility: [facility] Address: [address] [place] [address] Performed By: #### 3 1201-7 #### [facility] CLIA [id number] [address] [place] [address] HIVINT Normal [facility] Comment on above: Order Comment: Speci men Type: BLOOD SPECIMEN Ordering Facility: [facility] Address: [address] [place] [address] Result Comment: No e vidence of HIV-1 or HIV-2 infection. Should recent infection be suspected, repeat testing may be considered 2-3 weeks after this draw. [place] Rev. Code 3701.243(E): This information has been disclosed to you from confidential records protected from disclosure by state law. ???You shall make no further disclosure of this information without the specific, written, and informed release of the individual to whom it pertains or as otherwise permitted by state law. A general authorization for the release of medical or other information is not sufficient for the purpose of the release of HIV test results or diagnoses. Performed By: #### 3 1201-7 #### [facility] CLIA [id number] [address] [place] [address] [place] Progress Noteon 11-24-2021 Topstitcher Lockstitch Authentication Interface Message Text Patient ID: Howard Saldivar is a 16 y.o. female. Her chief complaint(s) include: 16 YEAR WELL CHILD Assessment 1. Routine general medical examination at a health care facility Plan Howard was seen today for 16 year well child. Diagnoses and all orders for this visit: Routine general medical examination at a health care facility - PHQ9 Assessment With Score Return in about 1 year (around 11/24/2022) for well check. Plan: call if breast pain worsens or changes. Discussed with howard it sounds musculoskeletal in nature. Subjective HPI Comments: Here for 16 year well visit. On depression screen, she is not currently having any concerns with mental health or SI. She has had L sided breast pain intermittently x2 and then worse where it felt like someone punching her and pushing on area made it worse. Now its better. No known injury or overuse. No nipple dc or redness of breast. She is unaccompanied. No ecd was used. 16 YEAR WELL CHILD Home: Howard eats meals with family, has an adult to turn to for help and is permitted and able to make independent decisions. Education: Howard is in freshman year of college and is doing well. 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 Eating: Howard eats regular meals including fruits and vegetables, eats breakfast and has a calcium source. Activities & Sports: Howard has a job and has drivers license. (Loves to bake). Drugs: Howard does not use tobacco, does not use drugs and does not use alcohol. Safety: Howard uses helmet and uses seat belt. Menstruation Last Menstrual period: now Menstruation: regular periods Output Urine and Stool Pattern: Urine and Stool Pattern: Normal stool pattern, normal urine pattern. Stool Consistency: soft Sleep Sleeping Difficulty: no difficulty sleeping Hours of sleep at a time: 9 Teen Anticipatory Guidance The following anticipatory guidance was reviewed during the visit: Safety: use safety helmet/gear with activities. Social: avoid or limit screen time. Health: age appropriate dental care and self breast exam. Screenings Previous Vaccine Reactions: No. Primary Care Review of Systems Objective Vital Signs 11/24/21 1103 BP: 120/78 There is no height or weight on file to calculate BMI. Physical Exam Constitutional: She appears well. She is active. No distress. HENT: Head: Atraumatic. Ears: Right Ear: Tympanic membrane normal. Left Ear: Tympanic membrane normal. Mouth/Throat: Mucous membranes are moist. Eyes: Conjunctivae are normal. Cardiovascular: Normal rate and regular rhythm. Heart murmur not heard. Pulmonary/Chest: Breath sounds normal. There is normal air entry. Evgeny stage (breast) is 5. Genitourinary: Evgeny stage (genital) is 5. Neurological: She is alert. Vitals reviewed: Blood pressure 120/78. Howard Saldivar is a 16 y.o. female patient. PHQ9 Assessment With Score Performed by: Lexy Kumar MD Authorized by: Lexy Kumar MD PHQ-9 See PHQ9 Flowsheet Feeling down, depressed, irritable or hopeless: Not at all Little interest or pleasure in doing things: Not at all Trouble falling or staying sleep, or sleeping too much: Not at all Poor appetite, weight loss, or overeating: Not at all Feeling tired or having little energy: Not at all Feeling bad about yourself - or feeling that you are a failure, or have let yourself or your family down: Not at all Trouble concentrating on things, like school work, reading or watching TV: Not at all Moving or speaking so slowly that other people could have noticed. Or the opposite - being so fidgety or restless that you were moving around a lot more than usual: Not at all Thoughts that you would be better off , or of hurting yourself in some way: Not at all In the past year have you felt depressed or sad most days, even if you felt OK sometimes?: No If you are experiencing any of the problems on this form, how difficult have these problems made it for you to do your work, take care of things at home or get along with other people?: Not difficult at all Has there been a time in the past month when you have had serious thoughts about ending your life?: No Have you ever, in your whole life, tried to kill yourself or made a suicide attempt?: Yes PHQ-9 Total Score: 0 Electronically signed by: Lexy Kumar MD Normal [facility] Progress Noteon 03-14-2021 Topstitcher Lockstitch Authentication Interface Message Text [facility] Neurology Outpatient Office Visit Date: 03/14/2021 Patient Name:Hwoard Saldivar Patient Primary Care Doctor: Lexy Kumar MD History source: Patient and parent Chief Complaint: Chief Complaint Patient presents with Migraine This patient was seen at the request of Lexy Kumar MD for headaches. HISTORY OF PRESENTING ILLNESS: Howard is a 16 y.o. left-handed female who presents with a chief concern of headaches. Per TBI clinic visit note 01/11/2020: Interval history 01/10/21: See telephone call 11/29/20- PT working on Cardio and Cervical strength. Per Howard, should be done with PT in a few weeks and feels that concussion symptoms have resolved. Tolerating the increase in Cymbalta 30 mg well, reports it has helped with the severity of her headaches feels that it is barely there. Has had one migraine since FARZANA and Maxalt/rest resolved. Taking Mg 400 and B2 200 BID- tolerating well, no SE. Now only has photophobia and phonophobia w/ migraines. No longer concerns for dizziness. Improved sleep hygiene and screen time before bed. Working at [employer]- going well and not getting worsening of headaches. PT has helped with her endurance has now has been doing 30-60 minutes of cardio every other day at home w/o having worsening of headaches/dizziness . Headache 1 Semiology (Changes in emboldened print) Onset: Sudden, sometimes gradual, sometimes throbbing; pain is at about 1 out of 10 Frequency: once per week or every other week, but on the pain scale 1 out of 10 Duration: last about an hour Localization: right side behind her eye Awakens from sleep: only when she goes to sleep with a headache Associated symptoms: developing dizziness prior to headaches Nausea: yes (with migraines) Photophobia: yes Phonophobia: yes (she will hear noises with her headaches) Auras: she will no longer experience vertigo and light-headedness prior to a headache Vision abnormalities: Double vision and blurry vision, improved Tinnitus: yes Dysarthria: no Weakness: no Sensation: no Vertigo: yes Relief: tylenol and going to bed No longer taking ibuprofen 3 times per week, maybe once every couple of weeks Potential Triggers School: graduated, heading to [employer] with the intention of pursing pre-med; works at [employer] Bullying: no concern for bullying, online or in person Sleep hygiene: about 8 hours of sleep per night Caffeine: decreased her caffeine intake, because she noticed that energy drinks triggered her headaches Home: no recent stressors at home Exercise: exercise after school and work Diet/hydration: does not skip meals; drinks about 64 - 100oz of water per day Anxiety/Depression: she endorses anxiety, follows with a counselor ([facility] in [place]) once every 3 weeks Glasses: yes She endorses that bright lights and loud sounds can trigger headaches Too much screen time Deli meats Too much sugar Her headaches are worse when she is crying and exercising. Previous medical therapies: Riboflavin 400mg Magnesium 400mg Cymbalta 30mg daily Review of systems (based upon patient's response): Neurological: Please see HPI for additional neurological review of systems General: Does not endorse fever, weight loss, change in activity Cardiovascular: Does not endorse palpitations, chest pain, shortness of breath, recent history of murmur, fainting, or dizziness with activity Respiratory: Does not endorse cough, wheezing, shortness of breath HEENT: Does not endorse change in vision, hearing, photo/phonophobia, rhinorrhea, ear pain, sore throat, neck pain GI: Does not endorse nausea, vomiting, diarrhea, constipation, hematemesis, hematochezia, melena : Does not endorse dysuria, frequency, urgency, hematuria Endocrine: Does not endorse polyuria/polydipsia , heat/cold, intolerance Musculoskeletal: Does not endorse myalgias, arthralgias, edema Skin: Does not endorse rash, bruising, petechia, purpura Psychological:+ anxiety history: History Full term Vaginal delivery No complications with or delivery Jaundice, required 1 day of phototherapy Developmental History: No concern for developmental delay or regression Medical history: Active Ambulatory Problems Diagnosis Date Noted Migraine with aura and without status migrainosus, not intractable 08/07/2020 Nausea 08/07/2020 Resolved Ambulatory Problems Diagnosis Date Noted No Resolved Ambulatory Problems Past Medical History: Diagnosis Date Dyslexia Past surgical history: Past Surgical History: Procedure Laterality Date TONSILLECTOMY Medications: Current Outpatient Medications: Cholecalciferol (VITAMIN D3) 25 MCG (1000 UT) tablet, Take 1 Tablet (1,000 Units) by mouth daily, Disp: 30 Tablet, Rfl: 5 DULoxetine (CYMBALTA) 30 MG capsule, Take 1 Capsule (30 mg (more content not included)... Normal [facility] Progress Noteon 01-10-2021 Topstitcher Lockstitch Authentication Interface Message Text [facility] Neurology Outpatient Date: 01/10/2021 Patient Name:Howard Saldivar Patient Primary Care Doctor: Lexy Kumar MD Chief Complaint: TBI Howard Saldivar is a 15 y.o. left handed female that is being seen today in the [facility] Program for a TBI and is accompanied by her Mother. History of Present Injury: The injury occurred on: 11/26/19. TBI Description: Fell down 9 stairs at school. Hit her head on the concrete. There was no LOC, no [employer]. Acute symptoms included: headache and neck pain. Taken by EMS to [facility] ED. CT head negative. X-ray R elbow and C-spine negative. No other follow up complete. Of note, was supposed to have follow up in TBI clinic in the Spring but due to feeling better and COVID pandemic the visit was cancelled. Followed with on 08/07/20 for headaches in which lifestyle modifications were discussed, abortive treatment plan in place (switched from Imitrex to Maxalt - did not like how Imitrex made her feel. Has not yet tried Maxalt) and referral to TBI clinic was placed. Initial TBI Visit 09/11/20: Has hx of headaches that started about 2 years ago that worsened in August of 2019 to daily. Since hitting her head, she continues to have daily headaches but the pain is worse. Interval History 10/11/20: See telephone encounter (09/12) reviewing blood work and recommendations to start Vitamin D. Taking the Vitamin D, Magnesium, B2 and Periactin 6 mg daily. Reports the infusion provided significant relief of headache and has noticed that headache pain is creeping up again to pre infusion level. As of today, headaches are about the same as previous visit. Reports Periactin makes her tired and groggy in the morning but denies day time grogginess. Notes that school is a stressor that makes headaches worse. Has had to take the Maxalt X2 for abortive migraine treatment which provided relief. Reports dizziness has improved w/ PT and increased hydration/Gatorade. Counseling going well and sees counselor 1X/month- last session before . Interval History 11/24/20: Taking the supplements. Reports that since starting 20 mg Cymbalta and taking with food has noticed a improvement in severity of headaches and decrease in frequency of her migrainous headaches. Stomach no longer upset since taking with food. In PT has been doing Agility drills and moderate aerobic activity w/o worsening of headaches. Howard notes that she is slowly progressing. Reports PT is helping w/ dizziness. She is no longer having VOR sensitivity or blurry vision w/ extended screen time. Cervical tenderness has resolved. Interval history 01/10/21: See telephone call 11/29/20- PT working on Cardio and Cervical strength. Per Howard, should be done with PT in a few weeks and feels that concussion symptoms have resolved. Tolerating the increase in Cymbalta 30 mg well, reports it has helped with the severity of her headaches feels that it is barely there. Has had one migraine since FARZANA and Maxalt/rest resolved. Taking Mg 400 and B2 200 BID- tolerating well, no SE. Now only has photophobia and phonophobia w/ migraines. No longer concerns for dizziness. Improved sleep hygiene and screen time before bed. Working at [employer]- going well and not getting worsening of headaches. PT has helped with her endurance has now has been doing 30-60 minutes of cardio every other day at home w/o having worsening of headaches/dizziness . Post Concussive Symptoms reviewed in the following domains: Headache: Frequency:daily ( had a period headache free after infusion) Duration:constant - notes that hardly notices now Location: forehead and right side of head- where she hit her head. Characteristics: pounding Awakens from sleep: no Severity: <1/10, for more severe pain 6-7/10- less frequent since Cymbalta Associated symptoms Nausea:no Photophobia:yes- only with migraines Phonophobia:yes- only w/ migraines. Auras:n/a Vision abnormalities: occasionally will see black spots Tinnitus: rarely that started after head injury. Dysarthria: no Weakness:no Sensation:no Relief:sleeping and Maxalt- rarely takes Maxalt Water Intake: 64 ounces and now drinking gatordate Cervical: Mild neck pain, no radicular symptoms. Father lives in [place]- and Howard has seen a chiropractor (1-2X) in [place] since head injury Vestibular: No longer dizziness or unsteadiness with quick head movements. dizziness with getting up from laying down is resolved now that hydration has improved. Baseline car/motion sickness that has worsened. Ocular: no longer blurred vision with focusing on objects/reading. No double vision. Cognitive: Mental fogginess: no Problems with concentration: no Problems with memory: no 12th grade at [employer] vision care program. Combination of in person and online. Previous grades have As/B (more content not included)... Normal [facility] OCT MACULA CIRRUS OU (BOTH E YES) [facility] Vital Signs Date Time Vital Sign Value Performing Clinician Shruthi atkinson 06-03-2025 15:16-0400 Body mass index (BMI) [Ratio] 34.81 kg/m2 Arlene Narayan APRN.CNM Work Phone: [facility] 06-03-2025 15:16-0400 Body weight 97.07 kg Arlene Narayan APRN.CNM Work Phone: [facility] 06-03-2025 15:16-0400 Diastolic blood pressure 82 mm[Hg] Arlene Narayan APRN.CNSonido Work Phone: [facility] 06-03-2025 15:16-0400 Systolic blood pressure 122 mm[Hg] Arlene Narayan APRN.CNM Work Phone: [facility] 06-01-2025 10:45-0400 Body mass index (BMI) [Ratio] 34.64 kg/m2 Nicky Bryant MD Work Phone: [facility] 06-01-2025 10:45-0400 Body weight 96.62 kg Nicky Bryant MD Work Phone: [facility] 06-01-2025 10:45-0400 Diastolic blood pressure 80 mm[Hg] Nicky Bryant MD Work Phone: [facility] 06-01-2025 10:45-0400 Systolic blood pressure 124 mm[Hg] Nicky Bryant MD Work Phone: [facility] 05-24-2025 11:20-0400 Body mass index (BMI) [Ratio] 34.42 kg/m2 Tati Bowles MD Work Phone: [facility] 05-24-2025 11:20-0400 Body weight 95.98 kg Tati Bowles MD Work Phone: [facility] 05-24-2025 11:20-0400 Diastolic blood pressure 82 mm[Hg] Tati Bowles MD Work Phone: [facility] 05-24-2025 11:20-0400 Systolic blood pressure 120 mm[Hg] Tati Bowles MD Work Phone: [facility] 05-09-2025 09:51-0400 Body mass index (BMI) [Ratio] 33.83 kg/m2 Clare Frank MD Work Phone: [facility] 05-09-2025 09:51-0400 Body weight 94.35 kg Clare Frank MD Work Phone: [facility] 05-09-2025 09:51-0400 Diastolic blood pressure 70 mm[Hg] Clare Frank MD Work Phone: [facility] 05-09-2025 09:51-0400 Systolic blood pressure 102 mm[Hg] Clare Frank MD Work Phone: [facility] 04-28-2025 11:39-0400 Body mass index (BMI) [Ratio] 33.28 kg/m2 Tati Bowles MD Work Phone: [facility] 04-28-2025 11:39-0400 Body weight 92.81 kg Ttai Bowles MD Work Phone: [facility] 04-28-2025 11:39-0400 Diastolic blood pressure 68 mm[Hg] Tati Bowles MD Work Phone: [facility] 04-28-2025 11:39-0400 Systolic blood pressure 102 mm[Hg] Tati Bowles MD Work Phone: [facility] 04-20-2025 12:05-0400 Body mass index (BMI) [Ratio] 32.85 kg/m2 Nst Wstr Work Phone: [facility] 04-20-2025 12:05-0400 Body weight 91.63 kg Nst Wstr Work Phone: [facility] 04-20-2025 12:05-0400 Diastolic blood pressure 70 mm[Hg] Nst Wstr Work Phone: [facility] 04-20-2025 12:05-0400 Systolic blood pressure 113 mm[Hg] Nst Wstr Work Phone: [facility] 04-13-2025 08:01-0400 Body mass index (BMI) [Ratio] 33.02 kg/m2 Arlene Narayan APRN.CNM Work Phone: [facility] 04-13-2025 08:01-0400 Body weight 92.08 kg Arlene Narayan APRN.CNM Work Phone: [facility] 04-13-2025 08:01-0400 Diastolic blood pressure 64 mm[Hg] Arlene Narayan APRN.CNM Work Phone: [facility] 04-13-2025 08:01-0400 Systolic blood pressure 108 mm[Hg] Arlene Narayan APRN.CNM Work Phone: [facility] 03-28-2025 11:17-0400 Body mass index (BMI) [Ratio] 32.53 kg/m2 Arlene Narayan APRN.CNM Work Phone: [facility] 03-28-2025 11:17-0400 Body weight 90.72 kg Arlene Narayan APRN.CNM Work Phone: [facility] 03-28-2025 11:17-0400 Diastolic blood pressure 64 mm[Hg] Arlene Narayan APRN.CNM Work Phone: [facility] 03-28-2025 11:17-0400 Systolic blood pressure 98 mm[Hg] Arlene Narayan [employer]ITION[employer] SERVICES COOK.CNM Work Phone: [facility] 03-16-2025 08:05-0400 Body mass index (BMI) [Ratio] 32.37 kg/m2 Arlene Narayan [employer].CNM Work Phone: [facility] 03-16-2025 08:05-0400 Body weight 90.27 kg Arlene Narayan [employer].CNM Work Phone: [facility] 03-16-2025 08:05-0400 Diastolic blood pressure 60 mm[Hg] Arlene Narayan [employer].CNM Work Phone: [facility] 03-16-2025 08:05-0400 Systolic blood pressure 110 mm[Hg] Arlene Narayan [employer] SERVICES [employer].CNM Work Phone: [facility] 02-23-2025 13:39-0400 Body mass index (BMI) [Ratio] 31.27 kg/m2 Kamran Christian [employer] PROGRAM DIRECTOR Work Phone: [facility] 02-23-2025 13:39-0400 Body temperature 98.71 [degF] Kamran Christian [employer] PROGRAM DIRECTOR Work Phone: [facility] 02-23-2025 13:39-0400 Body weight 87.2 kg Kamran Christian [employer] PROGRAM DIRECTOR Work Phone: [facility] 02-23-2025 13:39-0400 Diastolic blood pressure 46 mm[Hg] Kamran Christian [employer] SERVICES [employer]IO PROGRAM DIRECTOR Work Phone: [facility] 02-23-2025 13:39-0400 Heart rate 107 /min Kamran Christian [employer] PROGRAM DIRECTOR Work Phone: [facility] 02-23-2025 13:39-0400 SaO2% (BldA) [Mass fraction] 99 % Kamran Christian [employer] PROGRAM DIRECTOR Work Phone: [facility] 02-23-2025 13:39-0400 Systolic blood pressure 90 mm[Hg] Kamran Christian [employer] SERVICES [employer]IO PROGRAM DIRECTOR Work Phone: [facility] 02-20-2025 09:24-0400 Body mass index (BMI) [Ratio] 31.3 kg/m2 Chris Clutter PA-C Work Phone: [facility] 02-20-2025 09:24-0400 Body temperature 98.6 [degF] Chris Clutter PA-C Work Phone: [facility] 02-20-2025 09:24-0400 Body weight 87.3 kg Chris Clutter PA-C Work Phone: [facility] 02-20-2025 09:24-0400 Diastolic blood pressure 66 mm[Hg] Chris Clutter PA-C Work Phone: [facility] 02-20-2025 09:24-0400 Heart rate 101 /min Chris Clutter PA-C Work Phone: [facility] 02-20-2025 09:24-0400 Respiratory rate 18 /min Chris Clutter PA-C Work Phone: [facility] 02-20-2025 09:24-0400 SaO2% (BldA) [Mass fraction] 98 % Chris Clutter PA-C Work Phone: [facility] 02-20-2025 09:24-0400 Systolic blood pressure 110 mm[Hg] Chris Clutter PA-C Work Phone: [facility] 02-16-2025 08:48-0400 Body mass index (BMI) [Ratio] 31.06 kg/m2 iNcky Bryant MD Work Phone: [facility] 02-16-2025 08:48-0400 Body weight 86.64 kg Nicky Bryant MD Work Phone: [facility] 02-16-2025 08:48-0400 Diastolic blood pressure 56 mm[Hg] Nicky Bryant MD Work Phone: [facility] 02-16-2025 08:48-0400 Systolic blood pressure 104 mm[Hg] Nicky Bryant MD Work Phone: [facility] 01-21-2025 10:05-0400 Body mass index (BMI) [Ratio] 30.25 kg/m2 Mandy Sam MD Work Phone: [facility] 01-21-2025 10:05-0400 Body weight 84.37 kg Mandy Sam MD Work Phone: [facility] 01-21-2025 10:05-0400 Diastolic blood pressure 62 mm[Hg] Mandy Sam MD Work Phone: [facility] 01-21-2025 10:05-0400 Systolic blood pressure 112 mm[Hg] Mandy Sam MD Work Phone: [facility] 12-29-2024 10:27-0400 Body height 167 cm Donte Singleton MD Work Phone: [facility] 12-29-2024 10:27-0400 Body mass index (BMI) [Ratio] 29.67 kg/m2 Donte Singleton MD Work Phone: [facility] 12-29-2024 10:27-0400 Body weight 82.74 kg Donte Singleton MD Work Phone: [facility] 12-29-2024 10:27-0400 Diastolic blood pressure 58 mm[Hg] Donte Singleton MD Work Phone: [facility] 12-29-2024 10:27-0400 Heart rate 90 /min Donte Singleton MD Work Phone: [facility] 12-29-2024 10:27-0400 SaO2% (BldA) [Mass fraction] 99 % Donte Singleton MD Work Phone: [facility] 12-29-2024 10:27-0400 Systolic blood pressure 98 mm[Hg] Donte Singleton MD Work Phone: [facility] 12-27-2024 08:35-0400 Body mass index (BMI) [Ratio] 28.63 kg/m2 Clare Frank MD Work Phone: [facility] 12-27-2024 08:35-0400 Body weight 82.92 kg Clare Frank MD Work Phone: [facility] 12-27-2024 08:35-0400 Diastolic blood pressure 60 mm[Hg] Clare Frank MD Work Phone: [facility] 12-27-2024 08:35-0400 Systolic blood pressure 98 mm[Hg] Clare Frank MD Work Phone: [facility] 12-23-2024 15:34-0400 Body mass index (BMI) [Ratio] 28.82 kg/m2 Alli Haury [employer] PROGRAM DIRECTOR Work Phone: [facility] 12-23-2024 15:34-0400 Body weight 83.46 kg Alli Haury [employer] PROGRAM DIRECTOR Work Phone: [facility] 12-23-2024 15:34-0400 Diastolic blood pressure 64 mm[Hg] Alli Haury [employer] PROGRAM DIRECTOR Work Phone: [facility] 12-23-2024 15:34-0400 Systolic blood pressure 102 mm[Hg] Alli Haury [employer]IO PROGRAM DIRECTOR Work Phone: [facility] 12-15-2024 08:25-0500 Heart rate 96 /min Donte Singleton MD Work Phone: [facility] 12-15-2024 07:59-0500 Body mass index (BMI) [Ratio] 28.25 kg/m2 Donte Singleton MD Work Phone: [facility] 12-15-2024 07:59-0500 Body weight 81.83 kg Donte Singleton MD Work Phone: [facility] 12-15-2024 07:59-0500 Diastolic blood pressure 58 mm[Hg] Donte Singleton MD Work Phone: [facility] 12-15-2024 07:59-0500 Respiratory rate 16 /min Donte Singleton MD Work Phone: [facility] 12-15-2024 07:59-0500 SaO2% (BldA) [Mass fraction] 99 % Donte Singleton MD Work Phone: [facility] 12-15-2024 07:59-0500 Systolic blood pressure 98 mm[Hg] Donte Singleton MD Work Phone: [facility] 11-26-2024 09:28-0500 Body mass index (BMI) [Ratio] 27.66 kg/m2 Mandy Sam MD Work Phone: [facility] 11-26-2024 09:28-0500 Body weight 80.11 kg Mandy Sam MD Work Phone: [facility] 11-26-2024 09:28-0500 Diastolic blood pressure 72 mm[Hg] Mandy Sam MD Work Phone: [facility] 11-26-2024 09:28-0500 Systolic blood pressure 120 mm[Hg] Mandy Sam MD Work Phone: [facility] 10-27-2024 09:30-0500 Body height 170.2 cm Alli Haperico [employer] PROGRAM DIRECTOR Work Phone: [facility] 10-27-2024 09:30-0500 Body mass index (BMI) [Ratio] 28.19 kg/m2 Alli Forrester [employer] PROGRAM DIRECTOR Work Phone: [facility] 10-27-2024 09:30-0500 Body weight 81.65 kg Alli Haperico [employer] PROGRAM DIRECTOR Work Phone: [facility] 10-27-2024 09:30-0500 Diastolic blood pressure 62 mm[Hg] Alli Haury [employer] PROGRAM DIRECTOR Work Phone: [facility] 10-27-2024 09:30-0500 Systolic blood pressure 110 mm[Hg] Alli Haury [employer] SERVICES [employer]IO PROGRAM DIRECTOR Work Phone: [facility] 07-24-2024 10:21-0400 Body mass index (BMI) [Ratio] 27.82 kg/m2 Shmuel Merlos [employer] SERVICES [employer] PROGRAM DIRECTOR Work Phone: [facility] 07-24-2024 10:21-0400 Body temperature 97.81 [degF] Shmuel Brown [employer] PROGRAM DIRECTOR Work Phone: [facility] 07-24-2024 10:21-0400 Body weight 83 kg Shmuel Brown [employer]IO PROGRAM DIRECTOR Work Phone: [facility] 07-24-2024 10:21-0400 Diastolic blood pressure 73 mm[Hg] Shmuel Brown [employer] SERVICES [employer]IO PROGRAM DIRECTOR Work Phone: [facility] 07-24-2024 10:21-0400 Heart rate 81 /min Shmuel Brown [employer]IO PROGRAM DIRECTOR Work Phone: [facility] 07-24-2024 10:21-0400 Respiratory rate 18 /min Shmuel Brown [employer] SERVICES [employer]IO PROGRAM DIRECTOR Work Phone: [facility] 07-24-2024 10:21-0400 SaO2% (BldA) [Mass fraction] 100 % Shmuel Brown [employer]IO PROGRAM DIRECTOR Work Phone: [facility] 07-24-2024 10:21-0400 Systolic blood pressure 106 mm[Hg] Shmuel Brown [employer] SERVICES [employer]IO PROGRAM DIRECTOR Work Phone: [facility] 05-16-2024 08:51-0400 Body mass index (BMI) [Ratio] 29.7 kg/m2 Elvira Slabaugh PA-C Work Phone: [facility] 05-16-2024 08:51-0400 Body temperature 97.3 [degF] Elvira Slabaugh PA-C Work Phone: [facility] 05-16-2024 08:51-0400 Body weight 88.6 kg Elvira Slabaugh PA-C Work Phone: [facility] 05-16-2024 08:51-0400 Diastolic blood pressure 70 mm[Hg] Elvira Slabaugh PA-C Work Phone: [facility] 05-16-2024 08:51-0400 Heart rate 101 /min Elvira Slabaugh PA-C Work Phone: [facility] 05-16-2024 08:51-0400 SaO2% (BldA) [Mass fraction] 98 % Elvira Carr PA-C Work Phone: [facility] 05-16-2024 08:51-0400 Systolic blood pressure 117 mm[Hg] Elvira LEW-Carter Work Phone: [facility] 02-23-2024 16:53-0400 Body mass index (BMI) [Ratio] 29.45 kg/m2 Natali Larouere [employer] SERVICES [employer] PROGRAM DIRECTOR Work Phone: [facility] 02-23-2024 16:53-0400 Body temperature 97.59 [degF] Natali Larouere [employer] SERVICES [employer]IO PROGRAM DIRECTOR Work Phone: [facility] 02-23-2024 16:53-0400 Body weight 87.85 kg Natali Larouere [employer] SERVICES [employer]IO PROGRAM DIRECTOR Work Phone: [facility] 02-23-2024 16:53-0400 Diastolic blood pressure 74 mm[Hg] Natali Larouere [employer] SERVICES [employer]IO PROGRAM DIRECTOR Work Phone: [facility] 02-23-2024 16:53-0400 Heart rate 80 /min Natali Larouere [employer] SERVICES [employer]IO PROGRAM DIRECTOR Work Phone: [facility] 02-23-2024 16:53-0400 SaO2% (BldA) [Mass fraction] 100 % Natali Larouere [employer] SERVICES [employer].RADIO PROGRAM DIRECTOR Work Phone: [facility] 02-23-2024 16:53-0400 Systolic blood pressure 115 mm[Hg] Natali Larouere [employer] SERVICES [employer]IO PROGRAM DIRECTOR Work Phone: [facility] 12-30-2023 12:29-0400 Body temperature 98.5 [degF] [facility] 12-30-2023 12:29-0400 Diastolic blood pressure 71 mm[Hg] [facility] 12-30-2023 12:29-0400 Heart rate 92 /min [facility] 12-30-2023 12:29-0400 Respiratory rate 16 /min [facility] 12-30-2023 12:29-0400 SaO2% (BldA) [Mass fraction] 99 % [facility] 12-30-2023 12:29-0400 Systolic blood pressure 108 mm[Hg] [facility] 12-30-2023 10:13-0400 Body height 170.18 cm [facility] 12-30-2023 10:13-0400 Body mass index (BMI) [Ratio] 28 kg/m2 [facility] 12-30-2023 10:13-0400 Body weight 81.41 kg [facility] 12-29-2023 08:53-0400 Body temperature 99 [degF] Linh Zambrano [employer] PROGRAM DIRECTOR Work Phone: [facility] 12-29-2023 08:53-0400 Body weight 88 kg Linh Zambrano [employer] SERVICES [employer]IO PROGRAM DIRECTOR Work Phone: [facility] 12-29-2023 08:53-0400 Diastolic blood pressure 62 mm[Hg] Linh Zambrano [employer] SERVICES [employer]IO PROGRAM DIRECTOR Work Phone: [facility] 12-29-2023 08:53-0400 Heart rate 110 /min Linh Zambrano [employer] SERVICES [employer]IO PROGRAM DIRECTOR Work Phone: [facility] 12-29-2023 08:53-0400 Respiratory rate 18 /min Linh Zambrano [employer] SERVICES [employer]IO PROGRAM DIRECTOR Work Phone: [facility] 12-29-2023 08:53-0400 SaO2% (BldA) [Mass fraction] 99 % Linh Zambrano [employer] SERVICES [employer]IO PROGRAM DIRECTOR Work Phone: [facility] 12-29-2023 08:53-0400 Systolic blood pressure 108 mm[Hg] Linh Zambrano [employer] SERVICES [employer]IO PROGRAM DIRECTOR Work Phone: [facility] 09-15-2023 08:56-0500 Body temperature 99.19 [degF] Lynn Medina PA-C Work Phone: [facility] 09-15-2023 08:56-0500 Body weight 87.09 kg Lynn Medina PA-C Work Phone: [facility] 09-15-2023 08:56-0500 Diastolic blood pressure 68 mm[Hg] Lynn Athy PA-C Work Phone: [facility] 09-15-2023 08:56-0500 Heart rate 116 /min Lynn Athy PA-C Work Phone: [facility] 09-15-2023 08:56-0500 Respiratory rate 16 /min Lynn Athy PA-C Work Phone: [facility] 09-15-2023 08:56-0500 SaO2% (BldA) [Mass fraction] 100 % Lynn Athy PA-C Work Phone: [facility] 09-15-2023 08:56-0500 Systolic blood pressure 108 mm[Hg] Lynn Athy PA-C Work Phone: [facility] 06-13-2023 16:23-0400 Body height 172.7 cm Kim Amstadt DO Work Phone: [facility] 06-13-2023 16:23-0400 Body temperature 98.01 [degF] Kim Amstadt DO Work Phone: [facility] 06-13-2023 16:23-0400 Body weight 82.1 kg Kim Amstadt DO Work Phone: [facility] 06-13-2023 16:23-0400 Diastolic blood pressure 78 mm[Hg] Kim Amstadt DO Work Phone: [facility] 06-13-2023 16:23-0400 Heart rate 86 /min Kim Amstadt DO Work Phone: [facility] 06-13-2023 16:23-0400 SaO2% (BldA) [Mass fraction] 100 % Kim Amstadt DO Work Phone: [facility] 06-13-2023 16:23-0400 Systolic blood pressure 116 mm[Hg] Kim Amstadt DO Work Phone: [facility] 06-07-2023 16:04-0400 Heart rate 87 /min [facility] 06-07-2023 16:04-0400 Respiratory rate 18 /min [facility] 06-07-2023 16:04-0400 SaO2% (BldA) [Mass fraction] 100 % [facility] 06-07-2023 [id number]:[id number] Body height 172.72 cm [facility] 06-07-2023 14:[id number] Body mass index (BMI) [Ratio] 28.4 kg/m2 [facility] 06-07-2023 [id number]:110400 Body temperature 97.2 [degF] [facility] 06-07-2023 [id number]:[id number] Body weight 84.93 kg [facility] 06-07-2023 14:11-0400 Diastolic blood pressure 88 mm[Hg] [facility] 06-07-2023 [id number]:[id number] Systolic blood pressure 127 mm[Hg] [facility] 02-24-2023 07:24-0400 Body weight 81.83 kg Ladonna Fullerton [employer] PROGRAM DIRECTOR Work Phone: [facility] 02-24-2023 07:24-0400 Diastolic blood pressure 64 mm[Hg] Ladonna Valentín [employer]IO PROGRAM DIRECTOR Work Phone: [facility] 02-24-2023 07:24-0400 Systolic blood pressure 110 mm[Hg] Ladonna Fullerton [employer] SERVICES [employer]IO PROGRAM DIRECTOR Work Phone: [facility] 12-12-2022 17:19-0500 Body temperature 98.29 [degF] José Miguel Chatal [employer] SERVICES [employer]IO PROGRAM DIRECTOR Work Phone: [facility] 12-12-2022 17:19-0500 Body weight 81.65 kg José Miguel Chatal [employer]IO PROGRAM DIRECTOR Work Phone: [facility] 12-12-2022 17:19-0500 Diastolic blood pressure 72 mm[Hg] José Miguel Chatal [employer]IO PROGRAM DIRECTOR Work Phone: [facility] 12-12-2022 17:19-0500 Heart rate 83 /min José Miguel Chatal [employer] SERVICES [employer]IO PROGRAM DIRECTOR Work Phone: [facility] 12-12-2022 17:19-0500 Respiratory rate 18 /min José Miguel Chatal [employer] SERVICES [employer]IO PROGRAM DIRECTOR Work Phone: [facility] 12-12-2022 17:19-0500 SaO2% (BldA) [Mass fraction] 100 % José Miguel Chatal [employer]IO PROGRAM DIRECTOR Work Phone: [facility] 12-12-2022 17:19-0500 Systolic blood pressure 110 mm[Hg] José Miguel Chatal [employer] SERVICES [employer]IO PROGRAM DIRECTOR Work Phone: [facility] 08-16-2022 10:47-0400 Body height 170.2 cm Kim Amstadt DO Work Phone: [facility] 08-16-2022 10:47-0400 Body temperature 98.49 [degF] Kim Amstadt DO Work Phone: [facility] 08-16-2022 10:47-0400 Body weight 84.42 kg Kim Amstadt DO Work Phone: [facility] 08-16-2022 10:47-0400 Diastolic blood pressure 70 mm[Hg] Kim Amstadt DO Work Phone: [facility] 08-16-2022 10:47-0400 Heart rate 89 /min Kim Amstadt DO Work Phone: [facility] 08-16-2022 10:47-0400 SaO2% (BldA) [Mass fraction] 100 % Kim Amstadt DO Work Phone: [facility] 08-16-2022 10:47-0400 Systolic blood pressure 118 mm[Hg] Kim Amstadt DO Work Phone: [facility] 05-06-2022 18:14-0400 Body height 170.2 cm Kim Amstadt DO Work Phone: [facility] 05-06-2022 18:14-0400 Body mass index (BMI) [Percentile] Per age and sex 93.63 % Kim Amstadt DO Work Phone: [facility] 05-06-2022 18:14-0400 Body temperature 98.71 [degF] Kim Amstadt DO Work Phone: [facility] 05-06-2022 18:14-0400 Body weight 86.66 kg Kim Amstadt DO Work Phone: [facility] 05-06-2022 18:14-0400 Diastolic blood pressure 68 mm[Hg] Kim Amstadt DO Work Phone: [facility] 05-06-2022 18:14-0400 Heart rate 94 /min Kim Amstadt DO Work Phone: [facility] 05-06-2022 18:14-0400 SaO2% (BldA) [Mass fraction] 98 % Kim Amstadt DO Work Phone: [facility] 05-06-2022 18:14-0400 Systolic blood pressure 124 mm[Hg] Kim Amstadt DO Work Phone: [facility] Encounters Encounter Date Encounter Type Care Provider Facility Start: 06-03-2025 End: 06-03-2025 Patient encounter procedure Arlene Narayan APRN.CNM Work Phone: OB/Gynecology Comment on above: 39 weeks gestation o f (HCC) (Primary Dx); Supervision of high risk in third trimester (HCC); Uterine size-date discrepancy, third trimester (HCC) Start: 06-03-2025 End: 06-03-[address] [facility] Facility:[facility] Start: 06-01-2025 End: 06-01-2025 Patient encounter procedure Nicky Bryant MD Work Phone: OB/Gynecology Comment on above: Supervision of high risk in third trimester (HCC) (Primary Dx); Uterine size-date discrepancy, third trimester (HCC); 39 weeks gestation of (HCC) Start: 06-01-2025 End: 06-01-[address] [facility] Facility:[facility] Start: 05-25-2025 End: 05-25-2025 ambulatory Serina Brown [facility] Start: 05-25-2025 End: 05-25-2025 Patient encounter procedure Serina G[facility]varakd [facility] Comment on above: Population Health Na vigation Outreach ( to PCP/OB/) Start: 05-24-2025 End: 05-24-2025 Patient encounter procedure Tati Bowles MD Work Phone: OB/Gynecology Comment on above: 38 weeks gestation o f (HCC) (Primary Dx); Supervision of high risk in third trimester (HCC) Start: 05-24-2025 End: 05-24-2025 ambulatory ALICIAMENDEZ GILLMAICO Facility:[facility] Start: 05-18-2025 End: 05-18-2025 ambulatory MANDY SAM Facility:[facility] Start: 05-09-2025 End: 05-09-2025 Patient encounter procedure Clare Frank MD Work Phone: OB/Gynecology Comment on above: Supervision of high risk in third trimester (HCC) (Primary Dx); 35 weeks gestation of (HCC) Start: 05-09-2025 End: 05-09-2025 ambulatory CLARE FRANK Facility:[facility] Start: 04-28-2025 End: 04-28-2025 Patient encounter procedure Tati Bowles MD Work Phone: OB/Gynecology Comment on above: 34 weeks gestation o f (HCC) (Primary Dx); Supervision of high risk in third trimester (HCC) Encounter for ultras ound to check growth (HCC) (Primary Dx); Uterine size-date discrepancy, third trimester (HCC); 34 weeks gestation of (HCC) Start: 04-28-2025 End: 04-28-2025 ambulatory ARLENE NARAYAN Facility:[facility] Start: 04-20-2025 End: 04-20-2025 Patient encounter procedure Alli Forrester APRN.CNP Work Phone: OB/Gynecology Comment on above: Supervision of high risk in third trimester (HCC) (Primary Dx); 33 weeks gestation of (HCC); Abdominal trauma, initial encounter Start: 04-20-2025 End: 04-20-2025 Telephone encounter Alli Forrester APRN.CNP Work Phone: OB/Gynecology Comment on above: Patient Question Start: 04-20-2025 End: 04-20-2025 Patient encounter procedure Nst Room [facility] Work Phone: OB/Gynecology Comment on above: Supervision of high risk in third trimester (HCC) (Primary Dx); Exercise-induced asthma (HCC); Uterine size-date discrepancy, third trimester (HCC); 33 weeks gestation of (HCC) Start: 04-20-2025 End: 04-20-2025 ambulatory ALLI FORRESTER Facility:[facility] Start: 04-13-2025 End: 04-13-2025 Patient encounter procedure Arlene Narayan APRN.CNM Work Phone: OB/Gynecology Comment on above: Supervision of high risk in third trimester (HCC) (Primary Dx); 32 weeks gestation of (HCC); History of depression; Exercise-induced asthma (HCC); Uterine size-date discrepancy, third trimester (HCC) Start: 04-13-2025 End: 04-13-2025 ambulatory ARLENE NARAYAN Facility:[facility] Start: 03-28-2025 End: 03-28-2025 ambulatory ARLENE NARAYAN Facility:[facility] Start: 03-28-2025 End: 03-28-2025 Patient encounter procedure Arlene Narayan APRN.CNM Work Phone: OB/Gynecology Comment on above: Supervision of high risk in second trimester (HCC) (Primary Dx); History of depression; History of eating disorder; Exercise-induced asthma (HCC); Migraine with aura, not intractable, without status migrainosus; 29 weeks gestation of (HCC) Start: 03-16-2025 End: 03-16-2025 Patient encounter procedure Arlene Narayan APRN.CNM Work Phone: OB/Gynecology Comment on above: Supervision of high risk in second trimester (HCC) (Primary Dx); 28 weeks gestation of (HCC); Asthma affecting in first trimester (HCC); History of depression; History of eating disorder Start: 03-16-2025 End: 03-16-2025 ambulatory DONTE SINGLETON Facility:[facility] Start: 02-23-2025 End: 02-23-2025 Patient encounter procedure Kamran Bassr NUTRITIONAL SERVICES COOK.RADIO PROGRAM DIRECTOR Work Phone: Internal Medicine [place] Comment on above: Acute non-recurrent pansinusitis (Primary Dx) Start: 02-23-2025 End: 02-24-2025 ambulatory Nicky Bryant MD Work Phone: OB/Gynecology Comment on above: Viral illness with p regnancy Start: 02-20-2025 End: 02-20-2025 Office outpatient visit 15 minutes Chris Alford PA-C Work Phone: [facility] Comment on above: Sore throat (Primary Dx); Acute URI Start: 02-20-2025 End: 02-20-2025 ambulatory DONTE SINGLETON Facility:[facility] Start: 02-16-2025 End: 02-16-2025 Patient encounter procedure Nicky Bryant MD Work Phone: OB/Gynecology Comment on above: Supervision of high risk in second trimester (HCC) (Primary Dx); Screening for diabetes mellitus; Encounter for supervision of normal first in third trimester (HCC); 24 weeks gestation of (HCC) Start: 02-16-2025 End: 02-16-2025 ambulatory DONTE SINGLETON Facility:[facility] Start: 01-21-2025 End: 01-21-2025 [facility] DONTE SINGLETON Facility:[facility] Start: 01-21-2025 End: 01-21-2025 Patient encounter procedure [employer] Senior Recruiter [employer] [facility] Maternal Medicine Comment on above: Encounter for anatomic survey (HCC) (Primary Dx); 20 weeks gestation of (HCC) 20 weeks gestation o f (HCC) (Primary Dx); Supervision of high risk in second trimester (HCC); Asthma affecting in first trimester (HCC) Start: 12-30-2024 End: 12-30-2024 Follow-up encounter Donte Singleton MD Work Phone: Family Medicine [place] Start: 12-29-2024 End: 12-29-2024 ambulatory DONTE SINGLETON Facility:[facility] Start: 12-29-2024 End: 12-29-2024 Patient encounter procedure Donte Singleton MD Work Phone: Family Medicine [place] Comment on above: Encounter for medica l examination to establish care (Primary Dx); Exercise-induced asthma; 17 weeks gestation of ; Migraine with aura, not intractable, without status migrainosus; Gastroesophageal reflux disease, unspecified whether esophagitis present Start: 12-29-2024 End: 12-29-2024 Patient encounter status Donte Singleton MD Work Phone: [facility] Work Phone: Start: 12-29-2024 End: 12-29-2024 ambulatory DONTE SINGLETON Facility:[facility] Start: 12-29-2024 Encounter for genera l adult medical examination without abnormal findings [facility]TE SING[facility]TON [facility] Start: 12-28-2024 End: 02-27-2025 Follow-up encounter Jhoana Haney MD Work Phone: OB/Gynecology Start: 12-27-2024 End: 12-27-2024 ambulatory CLARE FRANK Facility:[facility] Start: 12-27-2024 End: 12-27-2024 Patient encounter procedure Clare Frank MD Work Phone: OB/Gynecology Comment on above: Vaginal spotting (Pr imary Dx); Vaginal discharge; 16 weeks gestation of Start: 12-23-2024 End: 12-23-2024 Patient encounter procedure Alli Forrester APRN.RADIO PROGRAM DIRECTOR Work Phone: OB/Gynecology Comment on above: Supervision of high risk in second trimester (Primary Dx); 16 weeks gestation of Start: 12-23-2024 End: 12-23-2024 ambulatory Alli Forrester APRN.CNP Work Phone: OB/Gynecology Comment on above: Itching Start: 12-23-2024 End: 12-23-2024 E-mail encounter from caregiver Alli Forrester APRN.CNP Work Phone: OB/Gynecology Start: 12-15-2024 End: 12-15-2024 ambulatory DONTE SINGLETON Facility:[facility] Start: 12-15-2024 End: 12-15-2024 Patient encounter procedure Donte Singleton MD Work Phone: Family Medicine [place] Comment on above: Mild intermittent as thma with acute exacerbation (Primary Dx); 15 weeks gestation of Start: 12-02-2024 End: 12-02-2024 Telephone encounter Tati Bowles MD Work Phone: OB/Gynecology Comment on above: OB SOB, CP Start: 12-02-2024 End: 12-02-2024 Emergency department patient visit BERNY FAIR Facility:[facility] Start: 11-26-2024 End: 11-26-2024 ambulatory ALLI FORRESTER Facility:[facility] Start: 11-26-2024 End: 11-26-2024 Patient encounter procedure Mandy Sam MD Work Phone: OB/Gynecology Comment on above: 12 weeks gestation o f (Primary Dx); Encounter for supervision of high risk in first trimester, antepartum Encounter for antena macario screening for malformation using ultrasound (Primary Dx); Encounter for supervision of high risk in first trimester, antepartum; 12 weeks gestation of ; History of eating disorder Start: 11-22-2024 End: 01-22-2025 Follow-up encounter Alli Forrester APRN.RADIO PROGRAM DIRECTOR Work Phone: OB/Gynecology Start: 11-15-2024 End: 11-15-2024 ambulatory ALLI FORRESTER Facility:[facility] Start: 11-10-2024 End: 11-10-2024 Telephone encounter Nicky Bryant MD Work Phone: OB/Gynecology Comment on above: Question (OB Questio n) Start: 11-05-2024 End: 11-05-2024 ambulatory ALLI FORRESTER Facility:[facility] Start: 11-04-2024 End: 11-05-2024 ambulatory Alli Forrester APRN.RADIO PROGRAM DIRECTOR Work Phone: OB/Gynecology Start: 11-04-2024 End: 11-05-2024 Letter encounter Alli Forrester APRN.RADIO PROGRAM DIRECTOR Work Phone: OB/Gynecology Comment on above: Jury Duty Excuse Ana Lilia grove Start: 10-27-2024 End: 10-27-2024 ambulatory ALLI FORRESTER Facility:[facility] Start: 10-27-2024 End: 10-27-2024 Patient encounter procedure Alliparrish Carreraperico MUNOZ.RADIO PROGRAM DIRECTOR Work Phone: OB/Gynecology Comment on above: Encounter for superv ision of high risk in first trimester, antepartum (Primary Dx); 8 weeks gestation of ; with uncertain dates in first trimester; History of eating disorder; Asthma affecting in first trimester; Migraine with aura, not intractable, without status migrainosus; Nausea and vomiting in ; Constipation during in first trimester Start: 08-23-2024 End: 08-23-2024 ambulatory KIM WARD Facility:[facility] Start: 08-23-2024 End: 08-23-2024 Telephone encounter Kim Ward DO Work Phone: [address] [place] [address] Comment on above: Patient Update (Pt w as informed lab orders are in.) Start: 07-25-2024 End: 07-25-2024 Orders Only Zoe Moreira APRN.RADIO PROGRAM DIRECTOR Work Phone: [facility] Start: 07-24-2024 End: 07-24-2024 ambulatory KIM WARD Facility:[facility] Start: 07-24-2024 End: 07-24-2024 Patient encounter procedure Shmuel Merlos NUTRITIONAL SERVICES COOK.RADIO PROGRAM DIRECTOR Work Phone: [facility] Comment on above: Acute cystitis with hematuria (Primary Dx) Start: 05-16-2024 End: 05-16-2024 Patient encounter procedure Elvira Carr PA-C Work Phone: [facility] Comment on above: UTI symptoms (Primar y Dx); Dysuria Start: 02-24-2024 End: 02-24-2024 ambulatory KIMRoverto WARD Facility:[id number] Start: 02-24-2024 End: 02-24-2024 Patient encounter procedure [facility] Comment on above: Unspecified injury o f neck, initial encounter (Primary Dx) Start: 02-23-2024 End: 02-23-2024 Patient encounter procedure Natali Michel APRN.RADIO PROGRAM DIRECTOR Work Phone: [facility] Comment on above: Headache, unspecifie d headache type (Primary Dx); Neck pain; Injury of neck, initial encounter Start: 02-12-2024 Orders Only Ann Marie morillo APRN.RADIO PROGRAM DIRECTOR Work Phone: [facility] Comment on above: Vitamin D deficiency Start: 12-30-2023 ambulatory Kim Rubydt DO Work Phone: [facility] Comment on above: Chest Pain Start: 12-30-2023 End: 12-30-2023 Emergency department patient visit [facility] Work Phone: Start: 12-29-2023 End: 12-29-2023 Patient encounter procedure Linh Zambrano APRN.RADIO PROGRAM DIRECTOR Work Phone: [facility] Comment on above: Sore throat (Primary Dx); Viral pharyngitis Start: 11-27-2023 End: 11-27-2023 Patient encounter procedure Kelsie Beard OD Work Phone: Ophthalmology Comment on above: Myopia, bilateral (P rimary Dx); Regular astigmatism of both eyes Start: 10-22-2023 End: 08-24-2024 ambulatory Ana Luisa El RN [facility] Comment on above: Finger Injury Start: 09-18-2023 Telephone encounter Khari landry sap pp consultant Health Comment on above: [facility] Start: 09-15-2023 Telephone encounter Akbar blake MD Work Phone: Occupational Health Comment on above: [facility] Start: 09-15-2023 End: 09-15-2023 Patient encounter procedure Lynn Medina PA-C Work Phone: [facility] Comment on above: Viral URI with cough (Primary Dx) Start: 07-17-2023 End: 07-17-2023 Patient encounter procedure Syncope Opd Nurse Work Phone: Cardiology Comment on above: Syncope, unspecified syncope type (Primary Dx) Start: 07-10-2023 Telephone encounter 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 Comment on above: Appointment; Patient Update Orders Start: 06-13-2023 End: 06-13-2023 Office outpatient visit 25 minutes Kim Venusroney DO Work Phone: [facility] Comment on above: Syncope, unspecified syncope type (Primary Dx); Eating disorder, unspecified type Start: 06-09-2023 ambulatory Kim Donovantadt DO Work Phone: [facility] Start: 06-09-2023 Follow-up encounter Kim hennessy DO Work Phone: [facility] Comment on above: Emergency department visit follow up Start: 06-07-2023 End: 06-07-2023 Emergency department patient visit [facility] Work Phone: Start: 02-24-2023 End: 02-24-2023 Patient encounter procedure Ladonna Laura NUTRITIONAL SERVICES COOK.RADIO PROGRAM DIRECTOR Work Phone: OB/Gynecology Comment on above: Irregular menstrual cycle (Primary Dx) Start: 01-06-2023 End: 01-06-2023 Patient encounter procedure Herminia Yee OD Work Phone: Ophthalmology Comment on above: Vitreous floaters of right eye (Primary Dx) Start: 12-12-2022 End: 12-12-2022 Patient encounter procedure José Miguel Bunch APRN.RADIO PROGRAM DIRECTOR Work Phone: [facility] Comment on above: Acute otitis media, right (Primary Dx) Start: 10-23-2022 Refill Kim Venusroney DO Work Phone: [facility] Start: 10-08-2022 End: 10-08-2022 Patient encounter procedure Makeda Grey AUD Work Phone: Audiology Comment on above: Abnormal auditory pe rception, unspecified laterality (Primary Dx) Start: 09-04-2022 End: 09-04-2022 Orders Only Jacques Hu DO Work Phone: Cardiology Comment on above: Lightheadedness (Yareli derik Dx); Vasovagal syncope; Palpitations Event (Zio Patch) Start: 08-16-2022 End: 08-16-2022 Patient encounter procedure Kim Ward DO Work Phone: [facility] Comment on above: Encounter for initia l prescription of Nexplanon (Primary Dx) Start: 06-04-2022 Orders Only Jacques nunez DO Work Phone: Cardiology Comment on above: Syncope, unspecified syncope type (Primary Dx) Start: 05-06-2022 End: 05-06-2022 Patient encounter procedure Kim Rubyadriel DO Work Phone: [facility] Comment on above: Syncope, unspecified syncope type (Primary Dx); Traumatic brain injury, without loss of consciousness, subsequent encounter; Depression, unspecified depression type; Migraine with aura, not intractable, without status migrainosus; BMI 29.0-29.9,adult; Screening for STD (sexually transmitted disease); Special screening examination for viral disease; Screening for HIV (human immunodeficiency virus); Well female exam without gynecological exam; Encounter for immunization Start: 05-06-2022 End: 05-06-2022 Patient encounter status Kim Ward DO Work Phone: [facility] Procedures Date Procedure Procedure Detail Performing Clinician Start: 06-03-2025 Urnls dip stick/tabl et rgnt non-auto w/o micrscp Arlene Narayan APRN.CNM Work Phone: Start: 06-01-2025 Urnls dip stick/tabl et rgnt non-auto w/o micrscp Nikcy Bryant MD Work Phone: Start: 05-09-2025 Urnls dip stick/tabl et rgnt non-auto w/o micrscp Clare Frank MD Work Phone: Start: 04-28-2025 Urnls dip stick/tabl et rgnt non-auto w/o micrscp Tati Bowles MD Work Phone: Start: 04-28-2025 Us preg uterus after 1st trimest 1/ gestation Arlene Narayan NUTRITIONAL SERVICES COOK.RIKA Work Phone: Start: 02-20-2025 STREP A MOLECULAR (POC) Chris Alford PA-C Work Phone: Start: 01-21-2025 Us preg uterus after 1st trimest 1/ gestation Alli Forrester APRN.RADIO PROGRAM DIRECTOR Work Phone: Start: 11-26-2024 Us preg uterus after 1st trimest 1/ gestation Alli Forrester APRN.RADIO PROGRAM DIRECTOR Work Phone: Start: 11-05-2024 Antibody screen ALLI H RHYS Comment on above: Order Comment: Speci men Type: BLOOD SPECIMENOrdering Facility: [facility] Address: [address] [place] [address] Performed By: #### T SPN ####CC MAIN BLOOD [facility] [id number] [address] [place] Start: 10-27-2024 Us uterus l imited 1 fetuses Alli Forrester APRN.RADIO PROGRAM DIRECTOR Work Phone: Start: 10-27-2024 Adult depression scr eening assessment Alli Forrester APRN.RADIO PROGRAM DIRECTOR Work Phone: Start: 07-24-2024 UA DIP,URINE HCG (POC) [facility] Provider Start: 07-24-2024 Urnls dip stick/tabl et rgnt auto w/o microscopy [facility] Provider Start: 05-16-2024 Urnls dip stick/tabl et rgnt auto w/o microscopy [facility] Provider Start: 12-30-2023 SARS-CoV-2, Influenz a & RSV (PCR) Start: 12-30-2023 Plain chest X-ray Start: 12-29-2023 STREP A MOLECULAR (POC) [facility] Provider Start: 01-06-2023 Computerized ophthal aneta imaging retina Herminia Yee OD Work Phone: Start: 08-16-2022 Urine test visual color cmprsn meths Kim Ward DO Work Phone: Start: 05-06-2022 Adult depression scr eening assessment Kim Donovanroney DO Work Phone: Plan of Treatment Date Care Activity Detail Author Start: 10-22-2033 Urine microalbumin profile DTaP,Tdap,Td Vaccine (8 - Td or Tdap) [facility] Start: 10-27-2027 Screening for malign ant neoplasm of cervix Cervical Cancer Screening [facility] Start: 12-29-2026 Asthma Action Plan Asthma Action Robert n [facility] Start: 02-23-2026 Annual PCP Team Mail Handlers Supervisor birt Disease Visit Annual PCP Team Chronic Disease Visit [facility] Start: 01-04-2026 End: 01-04-2026 Patient encounter procedure 01/04/2026 10:00 AM EDT Office Visit [facility] [place] [address] [place], [place] [id number] PodlogarLexy APRN.RADIO PROGRAM DIRECTOR [address] [place] [address] annual physical [facility] [place] Comment on above: annual physical Start: 12-29-2025 Annual PCP Team Mail Handlers Supervisor brit Disease Visit Annual PCP Team Chronic Disease Visit [facility] Start: 12-29-2025 Covid-19 Vaccine ( season) Covid-19 Vaccine () [facility] Comment on above: Postponed from 06/13 (Declined at this time) Start: 12-29-2025 Spirometry Spirometry [facility] Comment on above: Postponed from 02/14 (Declined at this time) Start: 12-15-2025 Annual PCP Team Mail Handlers Supervisor brit Disease Visit Annual PCP Team Chronic Disease Visit [facility] Start: 10-27-2025 Anxiety Screening Anxiety Screening [facility] Start: 10-27-2025 Depression Screening Depression Scre ening [facility] Start: 10-27-2025 GC (Gonorrhea) Scree taisha (18-24) GC (Gonorrhea) Screening (18-24) [facility] Start: 10-27-2025 Screening for Chlamy twila trachomatis Chlamydia Screening (18-) [facility] Start: 07-01-2025 Asthma Control Test Asthma Control T est [facility] Comment on above: Postponed from 02/14 (Postponed To Appropriate Date) Start: 06-13-2025 Influenza vaccination Influenza Vacc ine (#1) [facility] Start: 06-08-2025 End: 06-08-2025 Patient encounter procedure 06/08/2025 11:10 AM EDT Routine Office Visit OB/Gynecology [address] [place] [address] Nicky Connell MD [address] [place] [address] OB OB/Gynecology Comment on above: OB Start: 06-03-2025 End: 06-03-2025 Patient encounter procedure 06/03/2025 10:20 AM EDT Routine Office Visit OB/Gynecology [address] [place] [address] Tati Bowles MD [address] [place] [address] OB OB/Gynecology Comment on above: OB Start: 06-01-2025 End: 06-01-2025 Patient encounter procedure 06/01/2025 10:50 AM EDT Routine Office Visit OB/Gynecology [address] [place] [address] Nicky Connell MD [address] [place] [address] OB OB/Gynecology Comment on above: OB Start: 05-24-2025 End: 05-24-2025 Patient encounter procedure 05/24/2025 11:10 AM EDT Routine Office Visit OB/Gynecology [address] [place] [address] Tati Bowles MD [address] [place] [address] OB OB/Gynecology Comment on above: OB Start: 05-18-2025 End: 05-18-2025 Patient encounter procedure 05/18/2025 1:10 PM EDT Routine Office Visit OB/Gynecology [address] [place] [address] Mandy Sam MD [address] [place] [address] OB OB/Gynecology Comment on above: OB Start: 05-12-2025 Urine microalbumin profile [facility] Start: 05-10-2025 End: 05-10-2025 Patient encounter procedure 05/10/2025 11:40 AM EDT Routine Office Visit OB/Gynecology [address] [place] [address] Nicky Connell MD [address] [place] [address] OB OB/Gynecology Comment on above: OB Start: 04-28-2025 End: 04-28-2025 Patient encounter procedure Maternal Medicine Comment on above: Growth Growth/OB Start: 04-13-2025 End: 04-13-2026 OBSTETRIC ULTRASOUND WHI OBSTETRIC ULTRASOUND WHI Anc Imaging Routine Supervision of high risk in third trimester (HCC) 32 weeks gestation of (HCC) Uterine size-date discrepancy, third trimester (HCC) Expected: 04/13/2025, Expires: 04/13/2026 [facility] Work Phone: Comment on above: Expected: 04/13/2025 , Expires: 04/13/2026 Start: 04-13-2025 End: 04-13-2025 Patient encounter procedure 04/13/2025 8:00 AM EDT Routine Office Visit OB/Gynecology [address] [place] [address] Arlene Narayan APRN.CN [address] [place] [address] [facility] OB/Gynecology Comment on above: [facility] Start: 03-28-2025 End: 03-28-2025 Patient encounter procedure 03/28/2025 11:15 AM EDT Routine Office Visit OB/Gynecology [address] [place] [address] Arlene Narayan APRN.CNM [address] [place] [address] OB OB/Gynecology Comment on above: OB Start: 03-19-2025 End: 06-18-2025 ANEMIA REFLEX PANEL ANEMIA REFLEX PANEL Lab Routine Encounter for supervision of normal first in third trimester (HCC) Expected: 03/19/2025, Expires: 06/18/2025 [facility] Comment on above: Expected: 03/19/2025 , Expires: 06/18/2025 Start: 03-19-2025 End: 02-16-2026 GESTATIONAL GLUCOSE SCREEN, 1-HOUR, 50 GRAM, NON-FASTING GESTATIONAL GLUCOSE SCREEN, 1-HOUR, 50 GRAM, NON-FASTING Lab Routine Screening for diabetes mellitus Expected: 03/19/2025, Expires: 02/16/2026 [facility] Work Phone: Comment on above: Expected: 03/19/2025 , Expires: 02/16/2026 Start: 03-19-2025 End: 02-16-2026 SYPHILIS TREPONEMAL W/REFLEX SYPHILIS TREPONEMAL W/REFLEX Lab Routine Encounter for supervision of normal first in third trimester (HCC) Expected: 03/19/2025, Expires: 02/16/2026 [facility] Comment on above: Expected: 03/19/2025 , Expires: 02/16/2026 Start: 03-16-2025 End: 03-16-2025 Patient encounter procedure 03/16/2025 8:00 AM EDT Routine Office Visit OB/Gynecology [address] [place] [address] Arlene Narayan APRN.CNSonido [address] [place] [address] OB OB/Gynecology Comment on above: OB Start: 03-16-2025 End: 03-16-2025 ambulatory 03/16/2025 7:45 AM EDT Results Only [place] [facility] [address] [place] [address] Glucose Test [place] [facility] Comment on above: Glucose Test Start: 02-16-2025 End: 02-16-2025 Patient encounter procedure 02/16/2025 9:00 AM EDT Routine Office Visit OB/Gynecology [address] [place] [address] Nicky Connell MD [address] [place] [address] OB OB/Gynecology Comment on above: OB Start: 01-21-2025 End: 01-21-2025 Patient encounter procedure Maternal Medicine Comment on above: Anatomy Anatomy/OB Start: 01-19-2025 End: 01-19-2025 Patient encounter procedure 01/19/2025 9:00 AM EDT Office Visit [facility] [place] [address] [facility] [place] [address] Donte Singleton MD [address] [facility] [place] [address] TO EST [facility] [place] Comment on above: TO EST Start: 01-18-2025 End: 01-18-2025 Patient encounter procedure Maternal Medicine Comment on above: Anatomy Anatomy/OB Start: 01-05-2025 End: 01-05-2025 Patient encounter procedure 01/05/2025 9:00 AM EDT Office Visit [facility] [place] [address] [facility] [place] [address] Donte Singleton MD [address] [facility] [place] [place] [address] TO EST [facility] [place] Comment on above: TO EST Start: 12-29-2024 End: 03-30-2025 CBC W Auto Differential panel - Blood [facility] Work Phone: Comment on above: Expected: 12/29/2024 , Expires: 03/30/2025 Start: 12-29-2024 End: 03-30-2025 Comprehensive metabolic 2000 panel - Serum or Plasma [facility] Comment on above: Expected: 12/29/2024 , Expires: 03/30/2025 Start: 12-29-2024 End: 03-30-2025 LIPID PANEL, NONFASTING [facility] Comment on above: Expected: 12/29/2024 , Expires: 03/30/2025 Start: 12-29-2024 End: 12-29-2024 Patient encounter procedure 12/29/2024 10:40 AM EDT Office Visit Family [facility] [place] [address] [place] [address] Donte Singleton MD [address] [facility] [place] [id number] [facility] Family [facility] [place] Comment on above: TO EST Start: 12-23-2024 End: 12-23-2024 Patient encounter procedure OB/Gynecology Comment on above: OB Start: 11-26-2024 End: 11-26-2024 Patient encounter procedure Maternal Medicine Comment on above: Nuchal Nuchal/OB Start: 10-27-2024 End: 01-26-2025 ANEMIA REFLEX PANEL ANEMIA REFLEX PANEL Lab Routine Encounter for supervision of high risk in first trimester, antepartum 8 weeks gestation of with uncertain dates in first trimester History of eating disorder Expected: 10/27/2024, Expires: 01/26/2025 [facility] Work Phone: Comment on above: Expected: 10/27/2024 , Expires: 01/26/2025 Start: 10-27-2024 End: 01-26-2025 CARRIER SCREEN, STANDARD CARRIER SCREEN, STANDARD Lab Routine Encounter for supervision of high risk in first trimester, antepartum 8 weeks gestation of Expected: 10/27/2024, Expires: 01/26/2025 [facility] Comment on above: Expected: 10/27/2024 , Expires: 01/26/2025 Start: 10-27-2024 End: 01-26-2025 Chromosome 21 trisomy [Presence] in Blood or Tissue by Cytogenetics [id number] PLUS Lab Routine Encounter for supervision of high risk in first trimester, antepartum 8 weeks gestation of Expected: 10/27/2024, Expires: 01/26/2025 [facility] Comment on above: Expected: 10/27/2024 , Expires: 01/26/2025 Start: 10-27-2024 End: 01-26-2025 Hemoglobin A1c in Blood HEMOGLOBIN A1C Lab Routine Encounter for supervision of high risk in first trimester, antepartum 8 weeks gestation of with uncertain dates in first trimester History of eating disorder Expected: 10/27/2024, Expires: 01/26/2025 [facility] Comment on above: Expected: 10/27/2024 , Expires: 01/26/2025 Start: 10-27-2024 End: 01-26-2025 HEMOGLOBIN EVALUATION CASCADE HEMOGLOBIN EVALUATION CASCADE Lab Routine Encounter for supervision of high risk in first trimester, antepartum 8 weeks gestation of Expected: 10/27/2024, Expires: 01/26/2025 [facility] Comment on above: Expected: 10/27/2024 , Expires: 01/26/2025 Start: 10-27-2024 End: 01-26-2025 Hepatitis B virus surface Ag [Presence] in Serum HEPATITIS B SURFACE ANTIGEN Lab Routine Encounter for supervision of high risk in first trimester, antepartum 8 weeks gestation of with uncertain dates in first trimester History of eating disorder Expected: 10/27/2024, Expires: 01/26/2025 [facility] Comment on above: Expected: 10/27/2024 , Expires: 01/26/2025 Start: 10-27-2024 End: 01-26-2025 Hepatitis C virus Ab [Presence] in Serum HEPATITIS C ANTIBODY IA WITH CONFIRMATION Lab Routine Encounter for supervision of high risk in first trimester, antepartum 8 weeks gestation of with uncertain dates in first trimester History of eating disorder Expected: 10/27/2024, Expires: 01/26/2025 [facility] Comment on above: Expected: 10/27/2024 , Expires: 01/26/2025 Start: 10-27-2024 End: 01-26-2025 HIV 1+2 Ab [Presence] in Serum or Plasma by Immunoassay HIV 1/2 COMBO WITH REFLEX TO DIFFERENTIATION Lab Routine Encounter for supervision of high risk in first trimester, antepartum 8 weeks gestation of with uncertain dates in first trimester History of eating disorder Expected: 10/27/2024, Expires: 01/26/2025 [facility] Comment on above: Expected: 10/27/2024 , Expires: 01/26/2025 Start: 10-27-2024 End: 10-27-2025 OBSTETRIC ULTRASOUND WHI OBSTETRIC ULTRASOUND WHI Anc Imaging Routine Encounter for supervision of high risk in first trimester, antepartum 8 weeks gestation of with uncertain dates in first trimester History of eating disorder Expected: 10/27/2024, Expires: 10/27/2025 [facility] Comment on above: Expected: 10/27/2024 , Expires: 10/27/2025 Start: 10-27-2024 End: 01-26-2025 RUBELLA IGG ANTIBODY RUBELLA IGG ANTIBODY Lab Routine Encounter for supervision of high risk in first trimester, antepartum 8 weeks gestation of with uncertain dates in first trimester History of eating disorder Expected: 10/27/2024, Expires: 01/26/2025 [facility] Comment on above: Expected: 10/27/2024 , Expires: 01/26/2025 Start: 10-27-2024 End: 01-26-2025 SYPHILIS TREPONEMAL W/REFLEX SYPHILIS TREPONEMAL W/REFLEX Lab Routine Encounter for supervision of high risk in first trimester, antepartum 8 weeks gestation of with uncertain dates in first trimester History of eating disorder Expected: 10/27/2024, Expires: 01/26/2025 [facility] Comment on above: Expected: 10/27/2024 , Expires: 01/26/2025 Start: 10-27-2024 End: 01-26-2025 TYPE + SCREEN TYPE + SCREEN Blood Bank Routine Encounter for supervision of high risk in first trimester, antepartum 8 weeks gestation of with uncertain dates in first trimester History of eating disorder Expected: 10/27/2024, Expires: 01/26/2025 [facility] Comment on above: Expected: 10/27/2024 , Expires: 01/26/2025 Start: 09-10-2024 Annual PCP Team Mail Handlers Supervisor brit Disease Visit Annual PCP Team Chronic Disease Visit [facility] Start: 08-23-2024 End: 11-22-2024 25-hydroxyvitamin D3 [Mass/volume] in Serum or Plasma [facility] Work Phone: Comment on above: Expected: 08/23/2024 , Expires: 11/22/2024 Start: 06-13-2024 Covid-19 Vaccine () Covid-19 Vaccine () [facility] Start: 06-13-2024 Influenza vaccination Influenza Vacc ine (#1) [facility] Start: 05-14-2024 End: 08-13-2024 25-hydroxyvitamin D3 [Mass/volume] in Serum or Plasma VITAMIN D 25 HYDROXY Lab Routine Vitamin D deficiency Expected: 05/14/2024 (Approximate), Expires: 08/13/2024 [facility] Work Phone: Comment on above: Expected: 05/14/2024 (Approximate), Expires: 08/13/2024 Start: 02-15-2024 Screening for malign ant neoplasm of cervix [facility] Start: 06-13-2023 Covid-19 Vaccine () Covid-19 Vaccine () [facility] Start: 06-13-2023 End: 08-13-2023 Ferritin [Mass/volume] in Serum or Plasma [facility] Work Phone: Comment on above: Expected: 06/13/2023 , Expires: 08/13/2023 Start: 06-13-2023 Influenza vaccination [facility] Start: 06-13-2023 End: 08-13-2023 Iron and Iron binding capacity panel - Serum or Plasma [facility] Work Phone: Comment on above: Expected: 06/13/2023 , Expires: 08/13/2023 Start: 05-06-2023 Adult depression screening assessment DEPRESSION SCREENING [facility] Start: 06-13-2022 Influenza vaccination INFLUENZA (#1) [facility] Start: 05-06-2022 End: 07-06-2022 Chlamydia trachomatis+Neisseria gonorrhoeae DNA [Presence] in Urine by LUCIA with probe detection GC/CHLAMYDIA AMPLIF, URINE Microbiology Routine Screening for STD (sexually transmitted disease) Expected: 05/06/2022, Expires: 07/06/2022 [facility] Work Phone: Comment on above: Expected: 05/06/2022 , Expires: 07/06/2022 Start: 05-06-2022 End: 07-06-2022 Comprehensive metabolic 2000 panel - Serum or Plasma COMP METABOLIC PANEL Lab Routine Well female exam without gynecological exam Expected: 05/06/2022, Expires: 07/06/2022 [facility] Work Phone: Comment on above: Expected: 05/06/2022 , Expires: 07/06/2022 Start: 05-06-2022 End: 07-06-2022 Hepatitis C virus Ab [Presence] in Serum HEP C AB IA W/CONF SCRN Lab Routine Special screening examination for viral disease Expected: 05/06/2022, Expires: 07/06/2022 [facility] Work Phone: Comment on above: Expected: 05/06/2022 , Expires: 07/06/2022 Start: 05-06-2022 End: 07-06-2022 HIV 1+2 Ab [Presence] in Serum or Plasma by Immunoassay HIV 1 2 COMBO(AG/AB),WITH REFLEX TO DIFFERENTIATION Lab Routine Screening for HIV (human immunodeficiency virus) Expected: 05/06/2022, Expires: 07/06/2022 [facility] Work Phone: Comment on above: Expected: 05/06/2022 , Expires: 07/06/2022 Start: 07-13-2021 COVID-19 VACCINE (3 - Booster for Pfizer series) COVID-19 VACCINE (3 - Booster for Pfizer series) [facility] Start: 04-07-2021 COVID-19 VACCINE (3 - Booster for Pfizer series) COVID-19 VACCINE (3 - Booster for Pfizer series) [facility] Start: 04-07-2021 COVID-19 VACCINE (3 - Pfizer series) COVID-19 VACCINE (3 - Pfizer series) [facility] Start: 2021 Anxiety Screening Anxiety Screening [facility] Start: 2021 CHLAMYDIA SCREENING (18-24) CHLAMYDIA SCREENING (18-24) [facility] Start: 2021 Depression Screening Depression Scre ening [facility] Start: 2021 GC (GONORRHEA) SCREE TAISHA (18-24) GC (GONORRHEA) SCREENING (18-24) [facility] Start: 2021 HEPATITIS C SCREENING HEPATITIS C SC SU [facility] Start: 2021 HIV SCREENING HIV SCREENING [facility] Start: 2021 Screening for Chlamy twila trachomatis Chlamydia Screening (18) [facility] Start: 2021 Spirometry Spirometry [facility] Start: 2017 PEDS TO ADULT TRANSI TION ANNUAL ASSESSMENT PEDS TO ADULT TRANSITION ANNUAL ASSESSMENT [facility] Start: 2015 PEDS TO ADULT TRANSI TION INITIAL DISCUSSION PEDS TO ADULT TRANSITION INITIAL DISCUSSION [facility] Start: 2007 Asthma Control Test Asthma Control T est [facility] Start: 2005 Asthma Action Plan Asthma Action Robert n [facility] Bacteria identified in Urine by Culture URINE CULTURE Microbiology Routine Dysuria UTI symptoms Ordered: 05/16/2024 [facility] Work Phone: Comment on above: Ordered: 05/16/2024 Bacteria identified in Urine by Culture URINE CULTURE Microbiology Routine Acute cystitis with hematuria Ordered: 07/24/2024 [facility] Work Phone: Comment on above: Ordered: 07/24/2024 Bacteria identified in Urine by Culture BACTERIAL CULTURE, URINE Microbiology Routine Encounter for supervision of high risk in first trimester, antepartum 8 weeks gestation of with uncertain dates in first trimester History of eating disorder 10/27/2024 10:01 AM EST [facility] BACTERIAL VAGINOSIS NAAT BACTERI AL VAGINOSIS NAAT Lab Routine Vaginal discharge 12/27/2024 12:20 PM EDT [facility] Work Phone: JIM/TRICHOMONAS NAAT JIM /TRICHOMONAS NAAT Lab Routine Vaginal discharge 12/27/2024 12:20 PM EDT [facility] Cardiovascular funct ion eval w/tilt table w/mntr TILT TABLE EVALUATION Cardiology Routine Lightheadedness Ordered: 07/11/2023 [facility] Work Phone: Comment on above: Ordered: 07/11/2023 Chlamydia trachomatis+Neisseria gonorrhoeae DNA [Presence] in Unspecified specimen by LUCIA with probe detection GONORRHEA/CHLAMYDIA NAAT Lab Routine Encounter for supervision of high risk in first trimester, antepartum 8 weeks gestation of with uncertain dates in first trimester History of eating disorder 10/27/2024 10:[address] [facility] COVID & INFLUENZA A/ B & RSV NAAT, ROUTINE COVID & INFLUENZA A/B & RSV NAAT, ROUTINE Microbiology Routine Viral URI with cough 09/15/2023 9:55 AM [facility] Work Phone: End: 06-04-2023 ECG COMPLETE ECG COMPLETE ECG Routine Syncope, unspecified syncope type 1 Occurrences starting 06/04/2022 until 06/04/2023 [facility] Work Phone: Comment on above: 1 Occurrences starti ng 06/04/2022 until 06/04/2023 NEXPLANON REMOVAL NEXPLANON KATHY JOHNNA Procedures Routine Irregular menstrual cycle Ordered: 02/24/2023 [facility] Work Phone: Comment on above: Ordered: 02/24/2023 OUTSIDE VENDOR CARDI AC OUTPATIENT EXTENDED RHYTHM RECORDING (WITHOUT TELEMETRY) OUTSIDE VENDOR CARDIAC OUTPATIENT EXTENDED RHYTHM RECORDING (WITHOUT TELEMETRY) Holter Routine Lightheadedness Vasovagal syncope Palpitations Ordered: 09/04/2022 [facility] Work Phone: Comment on above: Ordered: 09/04/2022 PAP TEST PAP TEST Lab Ryan cohn Encounter for supervision of high risk in first trimester, antepartum 8 weeks gestation of with uncertain dates in first trimester History of eating disorder 10/27/2024 10:[address] [facility] Patient Education [facility] Work Phone: Patient referral [facility] Work Phone: RAPID STREP TEST B/O RAPID STREP TEST B/O Lab Routine Sore throat Ordered: 12/29/2023 [facility] Work Phone: Comment on above: Ordered: 12/29/2023 URINE OB DIP B/O URINE OB DIP B/ O Lab Routine 38 weeks gestation of (HCC) Supervision of high risk in third trimester (HCC) Ordered: 05/24/2025 [facility] Work Phone: Comment on above: Ordered: 05/24/2025 Urine test visual color cmprsn meths HCG QUAL UR B/O Lab Routine Acute cystitis with hematuria Ordered: 07/24/2024 [facility] Comment on above: Ordered: 07/24/2024 [facility] Immunizations Immunization Date Immunization Notes Care Provider Erika castro 07-21-2024 influenza, seasonal, injectable, preservative free Shmuel Merlos APRN.RADIO PROGRAM DIRECTOR Work Phone: [facility] 07-21-2024 influenza virus vaccine, unspecified formulation Arlene Narayan NUTRITIONAL SERVICES COOK.CNM Work Phone: [facility] 10-22-2023 tetanus toxoid, redu princess diphtheria toxoid, and acellular pertussis vaccine, adsorbed Kelsie Beard OD Work Phone: [facility] 07-22-2023 influenza virus vaccine, unspecified formulation Lynn Medina PA-C Work Phone: [facility] 08-09-2022 influenza virus vaccine, unspecified formulation Kim Ward DO Work Phone: [facility] 05-06-2022 Human Papillomavirus 9-valent vaccine Kim Ward DO Work Phone: [facility] 07-12-2021 influenza virus vaccine, unspecified formulation Kim Amsroney DO Work Phone: [facility] 06-29-2020 influenza, injectabl e, quadrivalent, preservative free Donte Singleton MD Work Phone: [facility] 04-20-2020 meningococcal polysaccharide (groups A, C, Y and W-135) diphtheria toxoid conjugate vaccine (MCV4P) Kim Ward DO Work Phone: [facility] Work Phone: 08-03-2018 influenza, injectabl e, quadrivalent, contains preservative Donte Singleton MD Work Phone: [facility] 07-14-2017 influenza, injectabl e, quadrivalent, preservative free Donte Singleton MD Work Phone: [facility] 07-31-2016 influenza, injectable,quadrivalent , preservative free, pediatric Donte Singleton MD Work Phone: [facility] 11-27-2015 Human Papillomavirus 9-valent vaccine Donte Singleton MD Work Phone: [facility] 08-10-2015 Human Papillomavirus 9-valent vaccine Donte Singleton MD Work Phone: [facility] 08-10-2015 influenza, seasonal, injectable, preservative free Kim Ward DO Work Phone: [facility] Work Phone: 05-12-2015 human papilloma viru s vaccine, quadrivalent Kimroverto Ward DO Work Phone: [facility] Work Phone: 05-12-2015 meningococcal polysaccharide (groups A, C, Y and W-135) diphtheria toxoid conjugate vaccine (MCV4P) Kimroverto Ward DO Work Phone: [facility] Work Phone: 05-12-2015 tetanus toxoid, redu princess diphtheria toxoid, and acellular pertussis vaccine, adsorbed Kimroverto Ward DO Work Phone: [facility] Work Phone: 08-11-2014 influenza, live, intranasal, quadrivalent Donte Singleton MD Work Phone: [facility] 05-30-2014 hepatitis A vaccine, pediatric/adolescent dosage, 2 dose schedule Kim Ward DO Work Phone: [facility] Work Phone: 06-02-2013 influenza virus vaccine, live, attenuated, for intranasal use Kim Ward DO Work Phone: [facility] Work Phone: 06-27-2012 influenza virus vaccine, live, attenuated, for intranasal use Kim [employer] DO Work Phone: [facility] Work Phone: 11-11-2011 hepatitis A vaccine, pediatric/adolescent dosage, 2 dose schedule [employer] DO Work Phone: [facility] Work Phone: 05-27-2011 influenza virus vaccine, live, attenuated, for intranasal use [facility] Work [facility] Work Phone: 05-29-2010 influenza virus vaccine, live, attenuated, for intranasal use Kim [employer] Work Phone: [facility] Work Phone: 09-18-2009 novel [id number], preservative-free, injectable Kim [employer] DO Work Phone: [facility] Work Phone: 07-15-2009 influenza virus vaccine, live, attenuated, for intranasal use [facility] Work Phone: 07-21-2008 influenza virus vaccine, live, attenuated, for intranasal use Kim [employer] DO Work Phone: [facility] Work Phone: 02-04-2008 diphtheria, tetanus toxoids and acellular pertussis vaccine, 5 pertussis antigens Kim [employer] DO Work Phone: [facility] Work Phone: 02-04-2008 measles, mumps and rubella virus vaccine Kim Amstadt DO Work Phone: [facility] Work Phone: 02-04-2008 poliovirus vaccine, inactivated Kim [employer] DO Work Phone: [facility] Work Phone: 02-04-2008 varicella virus vaccine [place] i Amstadt DO Work Phone: [facility] Work Phone: 08-21-2004 pneumococcal conjuga te vaccine, 7 valent Kim Amstadt DO Work Phone: [facility] Work Phone: 08-21-2004 poliovirus vaccine, unspecified formulation Donte Singleton MD Work Phone: [facility] 05-24-2004 diphtheria, tetanus toxoids and acellular pertussis vaccine, unspecified formulation Kim Amstadt DO Work Phone: [facility] Work Phone: 05-24-2004 haemophilus influenz ae type b vaccine, conjugate unspecified formulation Kim Amstadt DO Work Phone: [facility] Work Phone: 03-24-2004 measles, mumps and rubella virus vaccine Kim Amstadt DO Work Phone: [facility] Work Phone: 03-24-2004 varicella virus vaccine [place] i Amstadt DO Work Phone: [facility] Work Phone: 2003 hepatitis B vaccine, pediatric or pediatric/adolescent dosage Kim Amstadt DO Work Phone: [facility] Work Phone: 2003 diphtheria, tetanus toxoids and acellular pertussis vaccine, unspecified formulation Kim Amstadt DO Work Phone: [facility] Work Phone: 2003 haemophilus influenz ae type b vaccine, conjugate unspecified formulation Kim Amstadt DO Work Phone: [facility] Work Phone: 2003 pneumococcal conjuga te vaccine, 7 valent Kim Amstadt DO Work Phone: [facility] Work Phone: 2003 diphtheria, tetanus toxoids and acellular pertussis vaccine, unspecified formulation Kim Amstadt DO Work Phone: [facility] Work Phone: 2003 haemophilus influenz ae type b vaccine, conjugate unspecified formulation Kim Amstadt DO Work Phone: [facility] Work Phone: 2003 pneumococcal conjuga te vaccine, 7 valent Kim Amstadt DO Work Phone: [facility] Work Phone: 2003 poliovirus vaccine, unspecified formulation Donte Singleton MD Work Phone: [facility] 2003 diphtheria, tetanus toxoids and acellular pertussis vaccine, unspecified formulation Kim Amstadt DO Work Phone: [facility] Work Phone: 2003 haemophilus influenz ae type b vaccine, conjugate unspecified formulation Kim Amstadt DO Work Phone: [facility] Work Phone: 2003 hepatitis B vaccine, pediatric or pediatric/adolescent dosage Kim Amstadt DO Work Phone: [facility] Work Phone: 2003 pneumococcal conjuga te vaccine, 7 valent Kim Amstadt DO Work Phone: [facility] Work Phone: 2003 poliovirus vaccine, unspecified formulation Donte Singleton MD Work Phone: [facility] 2003 hepatitis B vaccine, pediatric or pediatric/adolescent dosage Kim Amstadt DO Work Phone: [facility] Work Phone: Payers Date Payer Category Payer Private Health Insurance [id number] 2024 Government (not [facility] or Medicaid) [id number] 2024 Unknown [id number] 2023 Self-pay 2019 Private Health Insurance [id number] 2019 Unknown MMO MMO [employer] [id number] 2019-Present [phone] [address] [place] [address] PPO [id number] 2019 Unknown [id number] 2019 Unknown [id number] Unknown [id number] Unknown [id number] Social History Date Type Detail Facility Start: 11-26-2019 End: 08-16-2022 Tobacco smoking status NHIS Never smoked tobacco [facility] Start: 11-26-2019 End: 08-16-2022 Tobacco use and exposure Smokeless tobacco non-user [facility] Start: 05-06-2022 End: 10-22-2023 Alcohol intake Lifetime non-drinker (finding) [facility] Start: 05-04-2022 End: 08-14-2022 History SDOH Alcohol Frequency 1 [facility] Start: 05-04-2022 History SDOH Alcohol Std Drinks 98 [facility] Start: 05-04-2022 History SDOH Social Connections Phone 5 [facility] Start: 05-04-2022 History SDOH Social Connections Get Together 3 [facility] Start: 05-04-2022 End: 08-14-2022 History SDOH Social Connections Membership 2 [facility] Start: 05-04-2022 History SDOH Social Connections Living 7 [facility] Start: 05-04-2022 History SDOH Physica l Activity MPS 6 [facility] Start: 2003 Sex Assigned At Not on file [facility] Start: 04-26-2022 End: 09-04-2022 Exposure to SARS-CoV-2 (event) Not sure [facility] Start: 05-24-2022 End: 06-03-2022 Exposure to SARS-CoV-2 (event) Unable to assess [facility] Start: 06-07-2023 End: 12-30-2023 Tobacco smoking status NHIS Unknown if ever smoked [facility] Start: 2003 Sex Assigned At Female W [facility] Start: 02-24-2023 End: 06-09-2023 History of Social function [facility] Start: 02-24-2023 End: 06-09-2023 Social connection and isolation panel [facility] Do you belong to any clubs or organizations such as taoism groups, unions, fraternal or athletic groups, or school groups? Yes [facility] Are you now , , , , never or living with a partner? Living with partner [facility] How often to you hav e a drink containing alcohol? Never [facility] Start: 09-13-2012 How many standard drinks containing alcohol do you have on a typical day? Patient does not drink [facility] How hard is it for y ou to pay for the very basics like food, housing, medical care, and heating Somewhat hard [facility] Do you feel stress - tense, restless, nervous, or anxious, or unable to sleep at night because your mind is troubled all the time - these days [OSQ] To some extent [facility] (I/We) worried whenereida er (my/our) food would run out before (I/we) got money to buy more. Sometimes true [facility] The food that (I/we) bought just didn't last, and (I/we) didn't have money to get more. Never true [facility] In the past 12 month s, was there a time when you were not able to pay the mortgage or rent on time? No [facility] Start: 11-29-2021 Gender identity Identifies as female gender (finding) [facility] Start: 10-27-2024 End: 05-24-2025 Alcoholic beverage intake Ex-drinker (finding) [facility] Start: 10-26-2024 Education 13 [facility] Start: 09-14-2024 [facility] Start: 10-26-2024 Sexual orientation Heterosexual (naeem olivares) [facility] Are you now , , , , never or living with a partner? [facility] Do you feel stress - tense, restless, nervous, or anxious, or unable to sleep at night because your mind is troubled all the time - these days [OSQ] Not at all [facility] Start: 12-29-2024 Alcohol Comment rare alcohol u se, not while [facility] NEGATED: Highlighted row [facility] Goals Date Patient Goal Desired Activity /State Personal health goal Functional Status Date Assessment Result Facility 12-08-2024 Total score [AUDIT-C] -1 025 10:51 AM EST User, [email or web address] 12-08-2024 Within the last year , have you been humiliated or emotionally abused in other ways by your partner or ex-partner? No 12/08/2024 10:51 AM EST User, Mychart No [facility] 12-08-2024 Within the last year , have you been afraid of your partner or ex-partner? No 12/08/2024 10:51 AM EST User, Mychart No [facility] 12-08-2024 Within the last year , have you been raped or forced to have any kind of sexual activity by your partner or ex-partner? No 12/08/2024 10:51 AM EST User, Mychart No [facility] 12-08-2024 Within the last year , have you been kicked, hit, slapped, or otherwise physically hurt by your partner or ex-partner? No 12/08/2024 10:51 AM EST User, Mychart No [facility] 12-08-2024 Functional status Patient declin ed 12/08/2024 10:51 AM EST User, Mychart Patient declined [facility] 12-08-2024 How often do you hav e 6 or more drinks on 1 occasion? Never 12/08/2024 10:51 AM EST User, Mychart Never [facility] Mental Status Date Assessment Result Facility 06-07-2023 Cognitive function Level Of Cons ciousness Awake;Alert;Appropriate;Follow s Commands [facility] Work Phone: Clinical Notes 05-06-2022 to 06-03-2025 Quick Notes - Arlene Narayan APRN.CNM - 06/03/2025 3:30 PM EDTPrenatal Quick Notes - Arlene Narayan APRN.CNM - 06/03/2025 3:30 PM EDTPatient InstructionsPatient Instructions Note Date & Type Note Facility 06-03-2025 Progress note Formatting of t his note is different from the original. JOANNA-S: Howard Donald is a 20 year old female who presents at 39w3d with COREY:06/07/2025, by Last Menstrual Period for a problem visit. Requesting membrane sweep today. Denies headache, visual changes, chest pain, shortness of breath, vaginal bleeding, leakage of fluid, or dysuria. O: See flow sheet Gen: No apparent distress Abd: Gravid, nontender Unable to complete cervical sweep SENSITIVE EXAMINATION CONSENT: The sensitive examination was discussed with the Patient or Patient's Authorized Curtain Fitter. As applicable, any other physician, advance practice provider, medical student, or other health professional student that will be observing or involved in the sensitive examination for educational or training purposes was discussed with the Patient or Authorized Curtain Fitter. The Patient or Authorized Curtain Fitter has agreed to proceed with the sensitive examination. ASSESSMENT/PLAN: 1. Supervision of high risk in second trimester 2. 39 weeks gestation of PP visit Arlene Narayan APRN.CNM [facility] 06-03-2025 Miscellaneous Notes JOANNA-S: Howard Donald is a 20 year old female who presents at 39w3d with COREY:06/07/2025, by Last Menstrual Period for a problem visit. Requesting membrane sweep today. Denies headache, visual changes, chest pain, shortness of breath, vaginal bleeding, leakage of fluid, or dysuria. O: See flow sheet Gen: No apparent distress Abd: Gravid, nontender Unable to complete cervical sweep SENSITIVE EXAMINATION CONSENT: The sensitive examination was discussed with the Patient or Patient's Authorized Curtain Fitter. As applicable, any other physician, advance practice provider, medical student, or other health professional student that will be observing or involved in the sensitive examination for educational or training purposes was discussed with the Patient or Authorized Curtain Fitter. The Patient or Authorized Curtain Fitter has agreed to proceed with the sensitive examination. ASSESSMENT/PLAN: 1. Supervision of high risk in second trimester 2. 39 weeks gestation of PP visit Arlene Narayan APRN.CNM documented in this encounter [facility] 06-03-2025 Instructions Ren Calzada LPN - 06/03/2025 3:10 PM EDT SEQUENTIAL SCREENINGS The [facility] offers sequential screenings for women who are interested in screenings for chromosomal abnormalities and certain defects during a . The sequential screen combines ultrasound and blood tests to determine the risk of chromosomal abnormalities, including Down's Syndrome (Trisomy 21) and Trisomy 18, as well as open neural tube defects including spina bifida. Ultrasound examination is performed between 11 weeks and 13 weeks gestational age. Blood tests are drawn after the ultrasound and again later in the between 15 and 21 weeks gestational age. Please let your physician know if you are interested in this testing. It will require an appointment with our personnel and payroll technician. This is not an ultrasound performed by a physician in our office during a routine visit. SIGNS AND SYMPTOMS OF LABOR 1. Contractions every 10 minutes or more often 2. Clear, pink, or brownish fluid (water) leaking from vagina 3. Feeling that baby is pushing down, pressure 4. Low, dull backache 5. Cramps that feel like a period 6. Cramps with or without diarrhea If you notice any of the above symptoms, contact our office at [phone] and ask to speak with a nurse. After hours, you can call doctors registry at [phone] OR call [facility] at [phone] and ask to have the doctor licensed nurse practitioner paged. If you consider this an emergency, dial 9-5 or go to your nearest emergency department. NEED HELP? Are you dealing with a violent or abusive relationship? Are you a victim of rape or sexual assult? Call [facility] ([facility] 24 hour Crisis Hotline: 226.424.4919 or 421-648-7345. MANUAL Your Guide to a Healthy manual is now on-line. Visit [email or web address] ncyGuide to download your free copy documented in this encounter [facility] 06-01-2025 Progress note Formatting of t his note might be different from the original. DM-Pt doing well. Denies vaginal Bleeding, Leaking fluid, or regular Contractions. Pt reports good movement Physical Exam: Gen: female in no apparent distress Abd: soft, Gravid. Non tender to palpation. See flow sheet Participation of a fellow, resident, medical student, or advanced practice provider student in performing the sensitive examination was discussed with the patient or authorized wine sales representative. The patient or authorized wine sales representative has agreed to proceed with the sensitive examination. @ 39.1 weeks Assessment & Plan Supervision of high risk in third trimester ([facility]) Orders: URINE OB DIP B/O Uterine size-date discrepancy, third trimester ([facility]) AGA Orders: URINE OB DIP B/O 39 weeks gestation of ([facility]) RTO weekly incase IOL gets bumped IOL scheduled for next week per patient request - requesting physician only for delivery. Pt understands will do best to accommodate this request. Kick counts and labor reviewed Orders: URINE OB DIP B/O Nicky Valladares MD [facility] 06-01-2025 Miscellaneous Notes DM-Pt doing well. Denies vaginal Bleeding, Leaking fluid, or regular Contractions. Pt reports good movement Physical Exam: Gen: female in no apparent distress Abd: soft, Gravid. Non tender to palpation. See flow sheet Participation of a fellow, resident, medical student, or advanced practice provider student in performing the sensitive examination was discussed with the patient or authorized wine sales representative. The patient or authorized wine sales representative has agreed to proceed with the sensitive examination. @ 39.1 weeks Assessment & Plan Supervision of high risk in third trimester ([facility]) Orders: URINE OB DIP B/O Uterine size-date discrepancy, third trimester ([facility]) AGA Orders: URINE OB DIP B/O 39 weeks gestation of ([facility]) RTO weekly incase IOL gets bumped IOL scheduled for next week per patient request - requesting physician only for delivery. Pt understands will do best to accommodate this request. Kick counts and labor reviewed Orders: URINE OB DIP B/O Nicky Valladares MD documented in this encounter [facility] 06-01-2025 Instructions Gracy Pike MA - 06/01/2025 10:38 AM EDT SEQUENTIAL SCREENINGS The [facility] offers sequential screenings for women who are interested in screenings for chromosomal abnormalities and certain defects during a . The sequential screen combines ultrasound and blood tests to determine the risk of chromosomal abnormalities, including Down's Syndrome (Trisomy 21) and Trisomy 18, as well as open neural tube defects including spina bifida. Ultrasound examination is performed between 11 weeks and 13 weeks gestational age. Blood tests are drawn after the ultrasound and again later in the between 15 and 21 weeks gestational age. Please let your physician know if you are interested in this testing. It will require an appointment with our personnel and payroll technician. This is not an ultrasound performed by a physician in our office during a routine visit. SIGNS AND SYMPTOMS OF LABOR 1. Contractions every 10 minutes or more often 2. Clear, pink, or brownish fluid (water) leaking from vagina 3. Feeling that baby is pushing down, pressure 4. Low, dull backache 5. Cramps that feel like a period 6. Cramps with or without diarrhea If you notice any of the above symptoms, contact our office at [phone] and ask to speak with a nurse. After hours, you can call doctors registry at [phone] OR call [facility] at [phone] and ask to have the doctor licensed nurse practitioner paged. If you consider this an emergency, dial 06-13- or go to your nearest emergency department. NEED HELP? Are you dealing with a violent or abusive relationship? Are you a victim of rape or sexual assult? Call [facility] ([place]) 24 hour Crisis Hotline: 445.840.3804 or 796-007-2964. MANUAL Your Guide to a Healthy manual is now on-line. Visit [email or web address] [email or web address] to download your free copy documented in this encounter [facility] 05-25-2025 Note HNO ID: [id number] Author: SERINA BROWN, ? Service: ? Author Type: Patient Superintendent Institution Type: Progress Notes Filed: 05/25/2025 09:26 Note Text: POPULATION HEALTH NAVIGATION OUTREACH Action/FYI Spoke to patient added population geneticist to OB provider field Reason for Outreach Medicaid OB/Peds Care Gaps due: N/A Patient Contacted: Spoke to patient/parent/or legal guardian Patient identified by name and : Yes Medicaid OB/Peds actions taken: /[facility] Specialist added Navigation Signature: Serina Brown Population Health Navigator May 25, 2025 9:25 AM [facility] 05-25-2025 History of Present illness Narrative POPULATION HEALTH NAVIGATION OUTREACH Action/FYI Spoke to patient added population geneticist to OB provider field Reason for Outreach Medicaid OB/Peds Care Gaps due: N/A Patient Contacted: Spoke to patient/parent/or legal guardian Patient identified by name and : Yes Medicaid OB/Peds actions taken: [place]/[facility] Specialist added Navigation Signature: Serina Brown Population Health Navigator May 25, 2025 9:25 AM documented in this encounter [facility] 05-25-2025 Note Patient Outreach (NE TNAV) HOWARD DONALD ([id number]) 03 [facility] Date Time Provider Department 05/25/25 SERINA BROWN NETNAV During your visit today, we recorded the following information about you: Serina Brown 05/25/2025 9:26 AM Signed POPULATION HEALTH NAVIGATION OUTREACH Action/FYI Spoke to patient added population geneticist to OB provider field Reason for Outreach Medicaid OB/Peds Care Gaps due: N/A Patient Contacted: Spoke to patient/parent/or legal guardian Patient identified by name and : Yes Medicaid OB/Peds actions taken: /[facility] Specialist added Navigation Signature: Serina Brown Population Health Navigator May 25, 2025 9:25 AM Allergies As of Date: 05/25/2025 Noted Allergy Reaction CATS 01/06/2023 9 - Itching DUST 01/06/2023 9 - Itching 14 - Other: See Comments GRASS POLLEN 03/14/2021 2 - Rash Comments: Sneezing and Rash Date Reviewed: 05/24/2025 Reviewed by: Tati Bowles MD - Fully Assessed Reason for Visit: Population Health Navigation Outreach [3910] Cmt: to PCP/OB Prescriptions as of 05/25/2025 - triamcinolone (KENALOG) 0.025 % ointment Apply to affected area two times a day. - vit/iron fum/folic ac ( 1 + 1 ORAL) Take by mouth. - albuterol HFA (VENTOLIN HFA) 90 mcg/actuation inhaler Inhale 2 Puffs as instructed every 4 hours as needed for wheezing/shortness of breath. Problem List As Of Date 05/25/2025 Noted Resolved TBI (traumatic brain injury) ([facility]) [S06.9XAA] 05/06/2022 History of depression [Z86.59] 05/06/2022 Migraine with aura, not intractable, without st*05/06/2022 BMI 29.0-29.9,adult [Z68.29] 05/06/2022 Vasovagal syncope [R55] 09/10/2023 GERD (gastroesophageal reflux disease) [K21.9] 09/10/2023 10/27/2024 Asthma affecting in first trimester [*10/27/2024 Supervision of high risk in third tri*10/27/2024 History of eating disorder [Z86.59] 10/27/2024 Nausea and vomiting in (HCC) [O21.9] 10/27/2024 03/16/2025 Constipation during in first trimeste*10/27/2024 03/16/2025 Exercise-induced asthma [J45.990] 12/29/2024 Encounter for supervision of normal i*02/16/2025 03/16/2025 Encounter Status:Closed by SERINA BROWN on 05/25/25 [facility] 05-24-2025 Progress note Formatting of t his note might be different from the original. KJ - S: Howard denies LOF, contractions or vaginal bleeding. She reports some intermittent mild headaches that seem like prior migraine headaches. O: 38w0d, see flow sheet SENSITIVE EXAM: The sensitive examination was discussed with the Patient or Patient's Authorized Curtain Fitter. As applicable, any other physician, advance practice provider, medical student, or other health professional student that will be observing or involved in the sensitive examination for educational or training purposes was discussed with the Patient or Authorized Curtain Fitter. The Patient or Authorized Curtain Fitter has agreed to proceed with the sensitive examination. (Sensitive examination includes inspection and/or palpation of the breasts, pelvis, prostate and anorectal regions). A/P: Assessment & Plan 38 weeks gestation of ([facility]) Orders: URINE OB DIP B/O Supervision of high risk in third trimester ([facility]) Orders: URINE OB DIP B/O Reviewed labor, FM & headache precautions. Tati Bowles MD [facility] 05-24-2025 Miscellaneous Notes KJ - S: Howard denies LOF, contractions or vaginal bleeding. She reports some intermittent mild headaches that seem like prior migraine headaches. O: 38w0d, see flow sheet SENSITIVE EXAM: The sensitive examination was discussed with the Patient or Patient's Authorized Curtain Fitter. As applicable, any other physician, advance practice provider, medical student, or other health professional student that will be observing or involved in the sensitive examination for educational or training purposes was discussed with the Patient or Authorized Curtain Fitter. The Patient or Authorized Curtain Fitter has agreed to proceed with the sensitive examination. (Sensitive examination includes inspection and/or palpation of the breasts, pelvis, prostate and anorectal regions). A/P: Assessment & Plan 38 weeks gestation of (HCC) Orders: URINE OB DIP B/O Supervision of high risk in third trimester ([facility]) Orders: URINE OB DIP B/O Reviewed labor, FM & headache precautions. Tati Bowles MD documented in this encounter [facility] 05-24-2025 Instructions Linh Norman MA - 05/24/2025 11:13 AM EDT SEQUENTIAL SCREENINGS The [facility] offers sequential screenings for women who are interested in screenings for chromosomal abnormalities and certain defects during a . The sequential screen combines ultrasound and blood tests to determine the risk of chromosomal abnormalities, including Down's Syndrome (Trisomy 21) and Trisomy 18, as well as open neural tube defects including spina bifida. Ultrasound examination is performed between 11 weeks and 13 weeks gestational age. Blood tests are drawn after the ultrasound and again later in the between 15 and 21 weeks gestational age. Please let your physician know if you are interested in this testing. It will require an appointment with our personnel and payroll technician. This is not an ultrasound performed by a physician in our office during a routine visit. SIGNS AND SYMPTOMS OF LABOR 1. Contractions every 10 minutes or more often 2. Clear, pink, or brownish fluid (water) leaking from vagina 3. Feeling that baby is pushing down, pressure 4. Low, dull backache 5. Cramps that feel like a period 6. Cramps with or without diarrhea If you notice any of the above symptoms, contact our office at [phone] and ask to speak with a nurse. After hours, you can call doctors registry at [phone] OR call [facility] at [phone] and ask to have the doctor licensed nurse practitioner paged. If you consider this an emergency, dial or go to your nearest emergency department. NEED HELP? Are you dealing with a violent or abusive relationship? Are you a victim of rape or sexual assult? Call [facility] ([place]) 24 hour Crisis Hotline: 694.194.5659 or 334-446-7210. MANUAL Your Guide to a Healthy manual is now on-line. Visit [email or web address] ncyGuide to download your free copy documented in this encounter [facility] 05-09-2025 Progress note Formatting of t his note might be different from the original. SW- Some irregular ctx's. No vb, lof. Good FM PE: Gen- Nad, well appearing Abd- Soft, gravit, NT, S=D See flowsheet A/p 35 wk gestation - Discussed PTL - RTO 1 wk Clare Frank DO [facility] 05-09-2025 Miscellaneous Notes SW- Some irregular ctx's. No vb, lof. Good FM PE: Gen- Nad, well appearing Abd- Soft, gravit, NT, S=D See flowsheet A/p 35 wk gestation - Discussed PTL - RTO 1 wk Clare Frank DO documented in this encounter [facility] 05-09-2025 Instructions Linh Norman MA - 05/09/2025 9:51 AM EDT SEQUENTIAL SCREENINGS The [facility] offers sequential screenings for women who are interested in screenings for chromosomal abnormalities and certain defects during a . The sequential screen combines ultrasound and blood tests to determine the risk of chromosomal abnormalities, including Down's Syndrome (Trisomy 21) and Trisomy 18, as well as open neural tube defects including spina bifida. Ultrasound examination is performed between 11 weeks and 13 weeks gestational age. Blood tests are drawn after the ultrasound and again later in the between 15 and 21 weeks gestational age. Please let your physician know if you are interested in this testing. It will require an appointment with our personnel and payroll technician. This is not an ultrasound performed by a physician in our office during a routine visit. SIGNS AND SYMPTOMS OF LABOR 1. Contractions every 10 minutes or more often 2. Clear, pink, or brownish fluid (water) leaking from vagina 3. Feeling that baby is pushing down, pressure 4. Low, dull backache 5. Cramps that feel like a period 6. Cramps with or without diarrhea If you notice any of the above symptoms, contact our office at [phone] and ask to speak with a nurse. After hours, you can call doctors registry at [phone] OR call [facility] at [phone] and ask to have the doctor licensed nurse practitioner paged. If you consider this an emergency, dial 91-0 or go to your nearest emergency department. NEED HELP? Are you dealing with a violent or abusive relationship? Are you a victim of rape or sexual assult? Call [facility] ([place]) 24 hour Crisis Hotline: 316.456.1596 or 347-334-8365. MANUAL Your Guide to a Healthy manual is now on-line. Visit [email or web address] ncyGuide to download your free copy documented in this encounter [facility] 04-28-2025 Note Indication Evaluation of growth Discrepancy between uterine size and clinical dates Impression - Single, live, intrauterine . - presentation is cephalic. - The biometry is consistent with the assigned gestational dating. - The EFW is 2602 g, at the 69%. AC is at the 85%. - The amniotic fluid volume is normal amount with an MVP of 4.7 cm and an JONATHAN of 15.3 cm. - The placenta is posterior, fundal. - No malformations visualized on a limited survey as detailed below. Recommendations Additional follow-up as clinically indicated. Maternal Assessment Height 170 cm Height (ft) 5 ft Height (in) 7 in Physical Exam Initial weight (lb) 180 lb Initial BMI 28.19 kg/m Maternal assessment other: 1 Para 0 REMOTE READ Method Transabdominal ultrasound examination Waldron . Number of fetuses: 1 Dating LMP on: 08/31/2024 GA by LMP 34 w + 2 d COREY by LMP: 06/07/2025 GA by prior assessment 34 w + 2 d COREY by prior assessment: 06/07/2025 Ultrasound examination on: 04/28/2025 GA by U/S based upon: AC, BPD, Femur, HC GA by U/S 35 w + 2 d COREY by U/S: 05/31/2025 Assigned: based on stated COREY, selected on 04/28/2025 Assigned GA 34 w + 2 d Assigned COREY: 06/07/2025 General Evaluation Cardiac activity present. FHR 141 bpm. movements: present. Presentation: cephalic Placenta: Placental site: posterior, fundal Umbilical cord: Cord vessels: 3 vessel cord Amniotic fluid: Amount of AF: normal amount. MVP 4.7 cm. JONATHAN 15.3 cm. Q1 4.5 cm, Q2 4.2 cm, Q3 1.8 cm, Q4 4.7 cm Growth Overview Exam date GA BPD (mm) HC (mm) AC (mm) FL (mm) HL (mm) EFW (g) 01/21/2025 20w 3d 52.2 93% 188.3 71% 168 85% 34.2 75% 34.7 92% 413 87% 04/28/2025 34w 2d 89.3 91% 328.9 85% 315.4 85% 64.5 36% 2602 69% Biometry Standard BPD 89.3 mm 36w 1d 91% Hadlock OFD 115.9 mm 36w 6d 80% Nicolaides HC 328.9 mm 36w 5d 85% Liam AC 315.4 mm 35w 3d 85% Hadlock Femur 64.5 mm 33w 0d 36% Liam EFW 2,602 g 35w 0d 69% Hadlock EFW (lb) 5 lb EFW (oz) 12 oz EFW by: Hadlock (HC-AC-FL) Extended Suction Operator 4.7 mm Extremities / Bony Struc FL / HC 0.20 Other Structures FHR 141 bpm Anatomy Lateral ventricles: normal Cavum septi pellucidi: normal Cerebellum: normal Cisterna magna: normal 4-chamber view: normal RVOT view: normal LVOT view: normal 3-vessel view: normal Heart / Thorax Situs: situs solitus (normal) Diaphragm: normal Stomach: normal Kidneys: normal Bladder: normal sex: male Wants to know sex: yes Performed By: Destiney Blunt RDMS, RVT Read By: Pinky Purdy, M.D. [facility] 04-28-2025 Progress note Formatting of t his note might be different from the original. KJ - S: Howard denies LOF, contractions or vaginal bleeding. O: 34w2d, see flow sheet SENSITIVE EXAM: Sensitive exam not performed. A/P: Assessment & Plan 34 weeks gestation of ([facility]) US today shows EFW at 69% Orders: URINE OB DIP B/O Supervision of high risk in third trimester ([facility]) Orders: URINE OB DIP B/O Reviewed PTL & FM precautions Tati Bowles MD [facility] 04-28-2025 Miscellaneous Notes KJ - S: Howard denies LOF, contractions or vaginal bleeding. O: 34w2d, see flow sheet SENSITIVE EXAM: Sensitive exam not performed. A/P: Assessment & Plan 34 weeks gestation of ([facility]) US today shows EFW at 69% Orders: URINE OB DIP B/O Supervision of high risk in third trimester ([facility]) Orders: URINE OB DIP B/O Reviewed PTL & FM precautions Tati Bowles MD documented in this encounter [facility] 04-28-2025 Instructions Linh Norman MA - 04/28/2025 11:36 AM EDT SEQUENTIAL SCREENINGS The [facility] offers sequential screenings for women who are interested in screenings for chromosomal abnormalities and certain defects during a . The sequential screen combines ultrasound and blood tests to determine the risk of chromosomal abnormalities, including Down's Syndrome (Trisomy 21) and Trisomy 18, as well as open neural tube defects including spina bifida. Ultrasound examination is performed between 11 weeks and 13 weeks gestational age. Blood tests are drawn after the ultrasound and again later in the between 15 and 21 weeks gestational age. Please let your physician know if you are interested in this testing. It will require an appointment with our personnel and payroll technician. This is not an ultrasound performed by a physician in our office during a routine visit. SIGNS AND SYMPTOMS OF LABOR 1. Contractions every 10 minutes or more often 2. Clear, pink, or brownish fluid (water) leaking from vagina 3. Feeling that baby is pushing down, pressure 4. Low, dull backache 5. Cramps that feel like a period 6. Cramps with or without diarrhea If you notice any of the above symptoms, contact our office at [phone] and ask to speak with a nurse. After hours, you can call doctors registry at [phone] OR call [facility] at [phone] and ask to have the doctor licensed nurse practitioner paged. If you consider this an emergency, dial 9-1-7 or go to your nearest emergency department. NEED HELP? Are you dealing with a violent or abusive relationship? Are you a victim of rape or sexual assult? Call [facility] ([place]) 24 hour Crisis Hotline: 754.604.4730 or 821-550-8701. MANUAL Your Guide to a Healthy manual is now on-line. Visit [email or web address] [email or web address] to download your free copy documented in this encounter [facility] 04-20-2025 Telephone encounter Note Next OB appt with [facility] scheduled for 04/28/25. Goldie Oquendo RN [facility] 04-20-2025 Miscellaneous Notes Next OB appt with [facility] scheduled for 04/28/25. Goldie Oquendo, RN NST reactive. Feeling good FM. Precautions reviewed. Alli Forrester APRN.WILVER Patient is [employer] employee and approached provider about her dog jumping on her abdomen pretty forcefully last night. Denies bleeding or cramping. Recommend NST and appointment. Can add on to my schedule. Plans to arrive in about 10 minutes. Alli Forrester APRN.CNP documented in this encounter [facility] 04-20-2025 Telephone encounter Note NST reactive. Feeling good FM. Precautions reviewed. Alli Forrester APRN.CNP [facility] 04-20-2025 Instructions Laura Solomon MA - 04/20/2025 12:05 PM EDT SEQUENTIAL SCREENINGS The [facility] offers sequential screenings for women who are interested in screenings for chromosomal abnormalities and certain defects during a . The sequential screen combines ultrasound and blood tests to determine the risk of chromosomal abnormalities, including Down's Syndrome (Trisomy 21) and Trisomy 18, as well as open neural tube defects including spina bifida. Ultrasound examination is performed between 11 weeks and 13 weeks gestational age. Blood tests are drawn after the ultrasound and again later in the between 15 and 21 weeks gestational age. Please let your physician know if you are interested in this testing. It will require an appointment with our personnel and payroll technician. This is not an ultrasound performed by a physician in our office during a routine visit. SIGNS AND SYMPTOMS OF LABOR 1. Contractions every 10 minutes or more often 2. Clear, pink, or brownish fluid (water) leaking from vagina 3. Feeling that baby is pushing down, pressure 4. Low, dull backache 5. Cramps that feel like a period 6. Cramps with or without diarrhea If you notice any of the above symptoms, contact our office at [phone] and ask to speak with a nurse. After hours, you can call doctors registry at [phone] OR call [facility] at [phone] and ask to have the doctor licensed nurse practitioner paged. If you consider this an emergency, dial 06-13- or go to your nearest emergency department. NEED HELP? Are you dealing with a violent or abusive relationship? Are you a victim of rape or sexual assult? Call [facility] ([place]) 24 hour Crisis Hotline: 126.981.1099 or 294-636-6625. MANUAL Your Guide to a Healthy manual is now on-line. Visit [email or web address] ncyGuide to download your free copy documented in this encounter [facility] 04-20-2025 Note HNO ID: [id number] Author: ALLI FORRESTER APRN.CNP Service: ? Author Type: Nurse Practitioner Type: Procedures Filed: 04/20/2025 12:56 Note Text: NST SUMMARY PROVIDER ASSESSMENT AND INTERPRETATION Indications for NST: Trauma Baseline: 130 Variability: Moderate Accelerations: Present 15 X 15 Decelerations: None Interpretation: Reactive SIGNATURE: Alli Forrester APRN.CNP [facility] 04-20-2025 Procedure note NST SUMMARY PROVIDER ASSESSMENT AND INTERPRETATION Indications for NST: Trauma Baseline: 130 Variability: Moderate Accelerations: Present 15 X 15 Decelerations: None Interpretation: Reactive SIGNATURE: Alli Forrester APRN.CNP [facility] 04-20-2025 Progress note Formatting of t his note might be different from the original. EH - S: Howard is a 20 year old female who presents at 33w1d for an add on visit as her dog jumped on her abdomen forcefully last night. Feeling movement. Denies headache, visual changes, chest pain, shortness of breath, vaginal bleeding, leakage of fluid, or dysuria. Feeling well, no complaints. O: See flow sheet Gen: No apparent distress Abd: Gravid, nontender ASSESSMENT/PLAN: 1. Supervision of high risk in third trimester (HCC) - ICD9: V23.9, ICD10: O09.93 (primary diagnosis) - Continue PNV 2. 33 weeks gestation of (HCC) - ICD9: V22.2, ICD10: Z3A.33 3. Abdominal trauma, initial encounter - ICD9: 959.12, ICD10: S39.91XA - Feeling good movement - NST reactive - Reviewed precautions PTL precautions and kick counts reviewed. RTO as scheduled or sooner as needed. Alli Forrester APRN.CNP [facility] 04-20-2025 Miscellaneous Notes EH - S: Howard is a 20 year old female who presents at 33w1d for an add on visit as her dog jumped on her abdomen forcefully last night. Feeling movement. Denies headache, visual changes, chest pain, shortness of breath, vaginal bleeding, leakage of fluid, or dysuria. Feeling well, no complaints. O: See flow sheet Gen: No apparent distress Abd: Gravid, nontender ASSESSMENT/PLAN: 1. Supervision of high risk in third trimester ([facility]) - ICD9: V23.9, ICD10: O09.93 (primary diagnosis) - Continue PNV 2. 33 weeks gestation of ([facility]) - ICD9: V22.2, ICD10: Z3A.33 3. Abdominal trauma, initial encounter - ICD9: 959.12, ICD10: S39.91XA - Feeling good movement - NST reactive - Reviewed precautions PTL precautions and kick counts reviewed. RTO as scheduled or sooner as needed. Alli Forrester APRN.CNP documented in this encounter [facility] 04-20-2025 Procedure note NST SUMMARY PROVIDER ASSESSMENT AND INTERPRETATION Indications for NST: Trauma Baseline: 130 Variability: Moderate Accelerations: Present 15 X 15 Decelerations: None Interpretation: Reactive SIGNATURE: Alli Forrester APRN.CNP documented in this encounter [facility] 04-20-2025 Telephone encounter Note Patient is [employer] employee and approached provider about her dog jumping on her abdomen pretty forcefully last night. Denies bleeding or cramping. Recommend NST and appointment. Can add on to my schedule. Plans to arrive in about 10 minutes. Alli Forrester APRN.WILVER T [facility] 04-13-2025 Progress note Formatting of t his note is different from the original. JOANNA-S: Howard Donald is a 20 year old female who presents at 32w1d with COREY:06/07/2025, by Last Menstrual Period for a routine visit. Denies headache, visual changes, chest pain, shortness of breath, vaginal bleeding, leakage of fluid, or dysuria. Feeling well, no complaints. O: See flow sheet Gen: No apparent distress Abd: Gravid, nontender S ASSESSMENT/PLAN: 1. Supervision of high risk in second trimester -Continue PNV -Declined ASA -Information given on perineal massage and ways to promote spontaneous labor -Taking CBE online -Reviewed plan and waterbirth consent signed 2. 32 weeks gestation of 3. Asthma affecting in first trimester -Albuterol PRN, control 4. History of depression -Doing well, no medication at this time. 5. History of eating disorder -Doing well, no concerns 6. Uterine Size date discrepancy -Growth US ordered. S - PTL precautions and kick counts reviewed - RTO- 2 week. Arlene Narayan APRN.CNM T [facility] 04-13-2025 Miscellaneous Notes JOANNA-S: Howard Donald is a 20 year old female who presents at 32w1d with COREY:06/07/2025, by Last Menstrual Period for a routine visit. Denies headache, visual changes, chest pain, shortness of breath, vaginal bleeding, leakage of fluid, or dysuria. Feeling well, no complaints. O: See flow sheet Gen: No apparent distress Abd: Gravid, nontender S<D, 23lb TWG ASSESSMENT/PLAN: 1. Supervision of high risk in second trimester -Continue PNV -Declined ASA -Information given on perineal massage and ways to promote spontaneous labor -Taking CBE online -Reviewed plan and waterbirth consent signed 2. 32 weeks gestation of 3. Asthma affecting in first trimester -Albuterol PRN, control 4. History of depression -Doing well, no medication at this time. 5. History of eating disorder -Doing well, no concerns 6. Uterine Size date discrepancy -Growth US ordered. S<D - PTL precautions and kick counts reviewed - RTO- 2 week. Arlene Narayan APRN.CNM documented in this encounter [facility] 04-13-2025 Instructions Arlene Narayan APRN.CNM - 04/13/2025 8:00 AM EDT Images from the original note were not included. Preparing for labor: 36 wk Eat dates to promote spontaneous labor! Has an oxytocin-like effect on the body, leading to increased sensitivity of the uterus. Stimulates uterine contractions. Reduces hemorrhage the way oxytocin does. Date fruit contains saturated and unsaturated fatty acids such as oleic, linoleic, and linolenic acids, which are involved in saving and supplying energy and construction of prostaglandins. In addition, serotonin, tannin, and calcium in date fruit contribute to the contraction of smooth muscles of the uterus. Date fruit also has a laxative effect, which stimulates uterine contractions. Six dates per day is the magic number--provided that you re eating smaller deglet noor dates. Deglet noor dates are about 1 inch long. Medjool dates can be up to 2 inches long. If you re eating medjool dates, you only need about 3 dates to reach the 75 grams recommended in the studies. Not sure which type of date you have in your refrigerator? It s probably a deglet noor. How to Eat Dates During Dates are a healthy and delicious snack, so how can you add them to your diet? Add dates during in this awesome oatmeal recipe. Add dates to replace sugar in your favorite recipe or to pepe your homemade almond milk. Use dates and nuts to make an easy pie crust in the food service substitute. Add soaked dates to homemade nut butter for a sweet treat. Add dates to pepe homemade salad dressing. Add dates during easily with these yummy (paleo friendly) bars made from dates. What Is Red Raspberry Jakes Corner Tea? Red raspberry leaf tea comes from the leaves of the red raspberry plant. This herbal tea has been used for centuries to support respiratory, digestive and uterine health, particularly during and childbearing years. While usually known as a female herb, red raspberry leaf tea can also help support the prostate and various stomach ailments in children. How It Can Help and Red raspberry leaf tea can help to make labor faster and reduce complications and interventions during . One study found that women who consumed RRL tea regularly are less likely to go overdue or give prematurely. These women may also be less likely to receive an artificial rupture of their membranes or require a section, forceps, or vacuum than the women in the control group. Red raspberry leaf has many other benefits to , , and too. How Much Red Raspberry Jakes Corner Tea to Drink? 34 wk With your doctor or motor lodge clerk s approval, start with 1 cup of red raspberry leaf tea per day starting in the second trimester. Watch for any uterine cramping or other reactions. If you don t experience any, you can talk to your healthcare provider about increasing to 2 cups per day. Again, watch for any uterine cramping. If you notice any, cut back on your dosage for two weeks and try again. Keep in mind, some moms have irritable uteruses and can only drink red raspberry leaf tea once they reach their due date because of uterine cramping. Is Red Raspberry Jakes Corner Tea the Same as Raspberry Jakes Corner Tea? How About Plain Old Raspberry Tea? Sometimes. You really need to look at the ingredients to be sure. Note that there is no difference between red raspberry leaf and raspberry leaf. Prestigos or Skeeble Raspberry Jakes Corner Tea are two good brands. The red raspberry leaf teas that we recommend are 100% red raspberry leaf. Other teas labeled as raspberry are often a blend of rosehips, hibiscus, raspberry leaves, and raspberry flavor. So they may not be as effective. The teas to avoid are raspberry-flavored herbal teas, which may have ingredients like hibiscus, romeo hips, apples, elderberries, natural and artificial raspberry flavors. Teas like this don t contain raspberry leaf at all and thus won t offer any of the potential benefits of RRLT outlined in this article. [employer] www.[employer] I named this 'circuit' after my friend Daniela Amos, who shared and discussed it with me when I was working with a client whose labor seemed to be stalled out and no longer progressing... This circuit is useful to help get the baby lined up, ideally, in the Left Occiput Anterior (AGNES) Position, both before labor begins and when some corrections need to be done during labor. Prenatally, this position set can help to rotate a baby. As a natural method of induction, this can help get things going if baby just needed a gentle nudge of position to set things off. To the best of my knowledge, this group of positions will not hurt a baby that is already lined up correctly. - Norma Kirkpatrick Before you Begin..... This circuit takes at least 90 minutes to complete so clear your schedule and make mental preparations so you can relax in your environment. The second step requires a lot of pillows so gather them up before beginning Before starting, you should empty your bladder! Have a nice drink nearby, and make sure it has a straw! If you are having contractions, this circuit should bedone through contractions, try not to change positions between steps Step One: Open-knee Chest Stay in this position for 30 minutes, start in cat/cow, then drop your chest as low as you can to the bed or the floor and your bottom as high as you can. Knees should be fairly wide apart, and the angle between the torso/thighs should be wider than 90 degrees. Wiggle around, prop with lots of pillows and use this time to get totally relaxed. This position allows the baby to scoot out of the pelvis a bit and gives them room to rotate, shift their head position, etc. If the person finds it helpful,careful positioning with a rebozo under the belly, with gentle tension from a support person behindcan help maintain this position for the full 30minutes. Step Two: Exaggerated Left Side Lying Roll to your left side, bringing your top leg as high as possible and keeping your bottom leg straight. Roll forward as much as possible,again using a lot of pillows. Sink into the bed and relax some more. If you fall asleep, that's totally okay and you can stay there! If not, stay here for at least another half an hour. Try and get your top right leg up towards your head and get as rolled over onto your belly as much as possible. If you repeat the circuit during labor, try alternating left and right sides. We know the photo the left is actually right side... just flip the image in your head. Step Three: Moving and Lunges Lunge, walk stairs facing sideways, 2 at a time, (have a software development engineer downstairs of you!), take a walk outside with one foot on the curb and the other on the street, sit on a ball and hula- anything that's upright and putting your pelvis in open, asymmetrical positions. Spend at least 30 minutes doing this one as well to give your baby a chance to move down. If you are lunging or stair or curb walking, you should lunge/walk/go up stairs in the direction that feels better to you. The marie with the lunge is that the toes of the higher leg and mom's belly button should be at right angles. Do not lunge over your knee, that closes the pelvis. Daniela Amos: Circuit Creator - www.[employer] Norma Kirkpatrick CD, BDT (ROEL), LCCE, FACCE: Supporting Content - www.[employer] Alli Merlos: Photography - www.[employer] Trinidad Strickland CD/CDT (IVANIA): Print and Vp Customer Development - www.[employer] www.[employer] What is my perineum? Your perineum is the area between your vaginal opening and your rectum. This area stretches when you give , and sometimes the perineum or vagina will tear as your baby is being born. If your health care provider cuts an episiotomy during your , it is this area that is cut. You may need stitches after your baby is born if you have a tear or have an episiotomy. How often do perineal tears occur? About 4 to 8 out of every 10 women who give vaginally will have some tear in their perineum. About two?thirds of these women will need some stitches. Is an episiotomy necessary? An episiotomy is not necessary for most women. Although they were common before the , they are rarely done today. However, sometimes your health care provider may recommend an episiotomy just as your baby is being born. For example, an episiotomy can help if your baby needs to be born very quickly. You can ask your health care provider to talk with you about episiotomy during a visit. Can my health care provider do anything to help me avoid a tear? There are many ways that your health care provider can help to reduce your chance of tearing. For example, your provider may: Apply a warm compress to the perineum just before the baby comes out Recommend specific positions for you to be in as you push Provide gentle downward pressure on the baby's head as your baby is coming out Ask that you push your baby out between contractions Avoid the use of forceps or a vacuum to help your baby be born Can I do anything before the to help me avoid a tear? Preventing a perineal tear that occurs during has been the subject of many research studies. Several studies have found that perineal massage during the last weeks of can reduce tearing at for women giving for the first time. This massage--using 2 fingers to stretch your perineal tissues--is performed by you, in your home, once or twice a week, for the last 4 to 6 weeks of your . The next page of this handout tells how to do this massage. For every 15 women who do perineal massage, one woman will avoid an episiotomy and perineal tearing that needs stitches. While you massage, you can practice relaxing the muscles in your perineum. This can help you prepare for the stretching, burning feeling you may have when your baby's head is born. Relaxing this area during can help prevent tearing. Does perineal massage in help all women? Massage seems to work better for some women than others. Women having their first baby, women who are 30 years or older, and women who have had episiotomies before have fewer tears and less severe tears when perineal massage is done during the last weeks of . Can my partner help? Yes! Many women find that it is easier to have their partners do this massage. See the instructions for perineal massage on the next page for more information. Are there any risks to perineal massage during ? Not that we know of. It is free. It doesn't hurt. It is easy to do. And most women don't mind doing it. However, you should not stretch the perineum until it hurts or massage too often, which can hurt the skin in that area. Do not do perineal massage more than once or twice a week. Women who do it more often do not have a lower risk of perineal tearing. Check with your health care provider before beginning perineal massage. And, if you believe your amniotic fluid (bag of hoff) is leaking, check with your health care provider before putting anything in your vagina. Instructions for Perineal Massage During Wash your hands well, and make sure your fingernails are short. Relax in a private place where you can rest with your legs open and your knees bent. Some women like to lean on pillows for back support. Lubricate your thumbs and the perineal tissues. Use a lubricant such as vitamin E oil, coconut oil, almond oil, or any vegetable oil used for cooking--like olive oil. You may also try a water?soluble jelly, such as K?Y jelly, or your body's natural vaginal lubricant. Do not use baby oil, mineral oil, or petroleum jelly (Vaseline). Place your thumbs about 1 to 1.5 inches inside your vagina (see Figure 1). Press down (toward the anus) and to the sides until you feel a slight burning, stretching sensation. Hold that stretched position for 1 or 2 minutes. With your thumbs, slowly massage the lower half of the vagina using a U?shaped movement for 2 to 3 minutes at most. Concentrate on relaxing your muscles. This is a good time to practice slow, deep breathing techniques. Partners: If your partner is doing the perineal massage, follow the same basic instructions above. However, your partner should use his or her index fingers to do the massage (instead of thumbs). The same side?to?side, U?shaped, downward pressure method should be used. Good communication is important--be sure to tell your partner if you have too much pain or burning! Figure 1 1 Perineal Massage Alex Grade Level: 7.2 Approved October 2015. This handout replaces Perineal Massage in published in Volume 50, Issue 1, Nov 2004 SIGNS AND SYMPTOMS OF LABOR 1. Contractions every 10 minutes or more often 2. Clear, pink, or brownish fluid (water) leaking from vagina 3. Feeling that baby is pushing down, pressure 4. Low, dull backache 5. Cramps that feel like a period 6. Cramps with or without diarrhea If you notice any of the above symptoms, contact our office at [phone] and ask to speak with a nurse. After hours, you can call doctors registry at [phone] OR call [facility] at [phone] and ask to have the doctor licensed nurse practitioner paged. If you consider this an emergency, dial 5-5-7 or go to your nearest emergency department. NEED HELP? Are you dealing with a violent or abusive relationship? Are you a victim of rape or sexual assult? Call [facility] [place] ([place]) 24 hour Crisis Hotline: 363.998.6852 or 878-585-0308. MANUAL Your Guide to a Healthy manual is now on-line. Visit [email or web address] ncyGuide to download your free copy documented in this encounter [facility] 03-28-2025 Progress note Formatting of t his note is different from the original. JOANNA-S: Howard Donald is a 20 year old female who presents at 29w6d with COREY:06/07/2025, by Last Menstrual Period for a routine visit. Denies headache, visual changes, chest pain, shortness of breath, vaginal bleeding, leakage of fluid, or dysuria. Feeling well, no complaints. O: See flow sheet Gen: No apparent distress Abd: Gravid, nontender ASSESSMENT/PLAN: 1. Supervision of high risk in second trimester -Continue PNV -Declined ASA 2. 29 weeks gestation of - 1 hour GCT normal and CBC normal 3. Asthma affecting in first trimester -Albuterol PRN, control 4. History of depression -Doing well, no medication at this time. 5. History of eating disorder -Doing well, no concerns - PTL precautions and kick counts reviewed - RTO- 2 week. Arlene Narayan APRN.CNM [facility] 03-28-2025 Miscellaneous Notes JOANNA-S: Howard Donald is a 20 year old female who presents at 29w6d with COREY:06/07/2025, by Last Menstrual Period for a routine visit. Denies headache, visual changes, chest pain, shortness of breath, vaginal bleeding, leakage of fluid, or dysuria. Feeling well, no complaints. O: See flow sheet Gen: No apparent distress Abd: Gravid, nontender ASSESSMENT/PLAN: 1. Supervision of high risk in second trimester -Continue PNV -Declined ASA 2. 29 weeks gestation of - 1 hour GCT normal and CBC normal 3. Asthma affecting in first trimester -Albuterol PRN, control 4. History of depression -Doing well, no medication at this time. 5. History of eating disorder -Doing well, no concerns - PTL precautions and kick counts reviewed - RTO- 2 week. Arlene Narayan APRN.CNM documented in this encounter [facility] 03-28-2025 Instructions Dandre Calle MA - 03/28/2025 11:16 AM EDT SEQUENTIAL SCREENINGS The [facility] offers sequential screenings for women who are interested in screenings for chromosomal abnormalities and certain defects during a . The sequential screen combines ultrasound and blood tests to determine the risk of chromosomal abnormalities, including Down's Syndrome (Trisomy 21) and Trisomy 18, as well as open neural tube defects including spina bifida. Ultrasound examination is performed between 11 weeks and 13 weeks gestational age. Blood tests are drawn after the ultrasound and again later in the between 15 and 21 weeks gestational age. Please let your physician know if you are interested in this testing. It will require an appointment with our personnel and payroll technician. This is not an ultrasound performed by a physician in our office during a routine visit. SIGNS AND SYMPTOMS OF LABOR 1. Contractions every 10 minutes or more often 2. Clear, pink, or brownish fluid (water) leaking from vagina 3. Feeling that baby is pushing down, pressure 4. Low, dull backache 5. Cramps that feel like a period 6. Cramps with or without diarrhea If you notice any of the above symptoms, contact our office at [phone] and ask to speak with a nurse. After hours, you can call doctors registry at [phone] OR call [facility] at [phone] and ask to have the doctor licensed nurse practitioner paged. If you consider this an emergency, dial [phone]--1 or go to your nearest emergency department. NEED HELP? Are you dealing with a violent or abusive relationship? Are you a victim of rape or sexual assult? Call [facility] ([place]) 24 hour Crisis Hotline: 892.747.8478 or 020-587-0588. MANUAL Your Guide to a Healthy manual is now on-line. Visit [email or web address] ncyGuide to download your free copy documented in this encounter [facility] 03-16-2025 Miscellaneous Notes JOANNA-S: Howard Donald is a 20 year old female who presents at 28w1d with COREY:06/07/2025, by Last Menstrual Period for a routine visit. Denies headache, visual changes, chest pain, shortness of breath, vaginal bleeding, leakage of fluid, or dysuria. Feeling well, no complaints. O: See flow sheet Gen: No apparent distress Abd: Gravid, nontender ASSESSMENT/PLAN: 1. Supervision of high risk in second trimester -Continue PNV -Declined ASA 2. 28 weeks gestation of - 1 hour GCT, CBC, and RPR today - A positive - TDAP declined - LARC form reviewed and signed. Patient declines - Depression screen negative - Opioid screen negative - plan form discussed and given to patient. Patient desires unmedicated . Reviewed CBE and information 3. Asthma affecting in first trimester -Albuterol PRN, control 4. History of depression -Doing well, no medication at this time. 5. History of eating disorder -Doing well, no concerns - PTL precautions and kick counts reviewed - RTO- 2 week. Arlene Narayan APRN.CNM documented in this encounter [facility] 03-16-2025 Progress note Formatting of t his note might be different from the original. JOANNA-S: Howard Donald is a 20 year old female who presents at 28w1d with COREY:06/07/2025, by Last Menstrual Period for a routine visit. Denies headache, visual changes, chest pain, shortness of breath, vaginal bleeding, leakage of fluid, or dysuria. Feeling well, no complaints. O: See flow sheet Gen: No apparent distress Abd: Gravid, nontender ASSESSMENT/PLAN: 1. Supervision of high risk in second trimester -Continue PNV -Declined ASA 2. 28 weeks gestation of - 1 hour GCT, CBC, and RPR today - A positive - TDAP declined - LARC form reviewed and signed. Patient declines - Depression screen negative - Opioid screen negative - plan form discussed and given to patient. Patient desires unmedicated . Reviewed CBE and information 3. Asthma affecting in first trimester -Albuterol PRN, control 4. History of depression -Doing well, no medication at this time. 5. History of eating disorder -Doing well, no concerns - PTL precautions and kick counts reviewed - RTO- 2 week. Arlene Narayna APRN.CNM [facility] 02-23-2025 Note HNO ID: [id number] Author: KAMRAN GUTHRIE APRN.CNP Service: ? Author Type: Nurse Practitioner Type: Progress Notes Filed: 02/23/2025 14:11 Note Text: SUBJECTIVE Howard Donald is a 20 year old female here today for acute concern. Chief Complaint Patient presents with: Nasal Congestion: nasal drainage which is clear since February 13 post nasal drip with sore throat about 1 week cough dry non productive HPI Howard Donald is a 20 year old female. She is an established patient of Donte Singleton MD. Here today for acute concern. Issues with nasal congestion, post-nasal, sore throat. Cough that is dry and not productive. 25 weeks and 1 day . Onset was on February 13 but the last week it worsened. Issues with sinus congestion, sinus pressure and pain. Ear pressure too. Her medications were reviewed today and her list is now up to date. Medications Current Outpatient Medications Medication Sig triamcinolone (KENALOG) 0.025 % ointment Apply to affected area two times a day. vit/iron fum/folic ac ( 1 + 1 ORAL) Take by mouth. albuterol HFA (VENTOLIN HFA) 90 mcg/actuation inhaler Inhale 2 Puffs as instructed every 4 hours as needed for wheezing/shortness of breath. ondansetron (ZOFRAN) 4 mg tablet Take 1 tablet by mouth every 8 hours as needed for nausea/vomiting. rizatriptan (MAXALT) 10 mg tablet Take 1 tablet (10 mg) by mouth as needed. May repeat in 2 hours if needed amoxicillin-clavulanate potassium (AUGMENTIN) 875-125 mg per tablet Take 1 tablet by mouth two times a day for 10 days. No current facility-administered medications for this visit. ALLERGIES Allergen Reactions Cats Itching Dust Itching, Other: See Comments Grass Pollen Rash Sneezing and Rash ACTIVE PROBLEM LIST Encounter for Supervision of Normal in Second Trimester ([facility]) - 02/16/2025 Exercise-Induced Asthma ([facility]) - 12/29/2024 Asthma Affecting in First Trimester ([facility]) - 10/27/2024 Comment: October 27, 2024 Uses albuterol PRN. No Hemabate with delivery. Alli Forrester, TAMMY[facility] Supervision of High Risk in Second Trimester ([facility]) - 10/27/2024 Comment: Care Checklist Vaccines: [] Flu vaccine [] declined [] RSV vaccine 32 0/7 - 36 6/7 (Jun - Nov) [] declined [] COVID vaccine [] declined [] TDaP 27-36 [] declined First trimester: [x] Dating US [] 1st tri labs [x] Pap smear [x] Carrier screening [] declined [x] NIPT screening [] declined [x] First trimester anatomy scan [] declined [x] universal ASA ordered (start 12w-16w) [] declined [] M Power Consult [] not indicated [] declined Second trimester: [] Anatomy scan [] Mode of Delivery - [] Feeding - [] Pump ordered [] Diabetes screen [] CBC, RPR [] Behavioral Health Screening Third trimester (28-30 weeks): [] Consent [] Contraception [] Copy Center Specialist [] TeamBirth handout Third trimester (36-40 weeks): [] GBS [] Presentation - [] Scheduled [] yes - Hibiclens, pre-op instructions, CBC, TANDS ordered [] no [] HANDP [] Preferences worksheet [] Scanned in EMR History of Eating Disorder - 10/27/2024 Comment: October 27, 2024 Diagnosed at age 18-19 years old. Has never been on medication.Has struggled with restriction in the past. Has been eating well throughout so far. Has seen counseling through taoism in the past. No concerns with mood at this time. Mental health resources provided. Alli Forrester APRN.WILVER Nausea and Vomiting in ([facility]) - 10/27/2024 Comment: 10/27/24 Vitamin B6 doses reviewed. To notify if prescription is needed. Alli Forrester APRN.CNP Constipation During in First Trimester ([facility]) - 10/27/2024 Comment: October 27, 2024 Discussed Colace and increased hydration. Alli Forrester APRN.WILVER Vasovagal Syncope - 09/10/2023 Tbi (Traumatic Brain Injury) ([facility]) - 05/06/2022 History of Depression - 05/06/2022 Migraine With Aura, Not Intractable, Without Status Migrainosus - 05/06/2022 Comment: October 27, 2024 Has been prescribed Rizatriptan in the past. Recommend avoiding during . Discussed Magnesium 400 mg per day for headache prevention and to notify if migraines are becoming an issue. Alli Forrester APRN.WILVER Bmi 29.0-29.9,Adult - 05/06/2022 Social History Tobacco Use Smoking status: Never Smokeless tobacco: Never Vaping Use Vaping status: Never Used Substance Use Topics Alcohol use: Not Currently Comment: rare alcohol use, not while Drug use: Never Review of Systems HENT: Positive for congestion, postnasal drip, sinus pressure and sinus pain. Respiratory: Positive for cough. Negative for chest tightness, shortness of breath and wheezing. Cardiovascular: Negative. OBJECTIVE BP 90/46 Pulse 107 Temp (Src) 98.7 (Temporal) Wt 192 lb 3.9 oz (87.2kg) SpO2 99% LMP 08/31/2024 Physical Exam Vitals and nu (more content not included)... [facility] 02-23-2025 History of Present illness Narrative SUBJECTIVE Howard Donald is a 20 year old female here today for acute concern. Chief Complaint Patient presents with: Nasal Congestion: nasal drainage which is clear since February 13 post nasal drip with sore throat about 1 week cough dry non productive HPI Howard Donald is a 20 year old female. She is an established patient of Donte Singleton MD. Here today for acute concern. Issues with nasal congestion, post-nasal, sore throat. Cough that is dry and not productive. 25 weeks and 1 day . Onset was on February 13 but the last week it worsened. Issues with sinus congestion, sinus pressure and pain. Ear pressure too. Her medications were reviewed today and her list is now up to date. Medications Current Outpatient Medications Medication Sig triamcinolone (KENALOG) 0.025 % ointment Apply to affected area two times a day. vit/iron fum/folic ac ( 1 + 1 ORAL) Take by mouth. albuterol HFA (VENTOLIN HFA) 90 mcg/actuation inhaler Inhale 2 Puffs as instructed every 4 hours as needed for wheezing/shortness of breath. ondansetron (ZOFRAN) 4 mg tablet Take 1 tablet by mouth every 8 hours as needed for nausea/vomiting. rizatriptan (MAXALT) 10 mg tablet Take 1 tablet (10 mg) by mouth as needed. May repeat in 2 hours if needed amoxicillin-clavulanate potassium (AUGMENTIN) 875-125 mg per tablet Take 1 tablet by mouth two times a day for 10 days. No current facility-administered medications for this visit. ALLERGIES Allergen Reactions Cats Itching Dust Itching, Other: See Comments Grass Pollen Rash Sneezing and Rash ACTIVE PROBLEM LIST Encounter for Supervision of Normal in Second Trimester ([facility]) - 02/16/2025 Exercise-Induced Asthma ([facility]) - 12/29/2024 Asthma Affecting in First Trimester ([facility]) - 10/27/2024 Comment: October 27, 2024 Uses albuterol PRN. No Hemabate with delivery. Alli Forrester APRN.WILVER Supervision of High Risk in Second Trimester ([facility]) - 10/27/2024 Comment: Care Checklist Vaccines: [] Flu vaccine [] declined [] RSV vaccine 32 0/7 - 36 6/7 (Jun - Nov) [] declined [] COVID vaccine [] declined [] TDaP 27-36 [] declined First trimester: [x] Dating US [] 1st tri labs [x] Pap smear [x] Carrier screening [] declined [x] NIPT screening [] declined [x] First trimester anatomy scan [] declined [x] universal ASA ordered (start 12w-16w) [] declined [] M Power Consult [] not indicated [] declined Second trimester: [] Anatomy scan [] Mode of Delivery - [] Feeding - [] Pump ordered [] Diabetes screen [] CBC, RPR [] Behavioral Health Screening Third trimester (28-30 weeks): [] Consent [] Contraception [] Copy Center Specialist [] TeamBirth handout Third trimester (36-40 weeks): [] GBS [] Presentation - [] Scheduled [] yes - Hibiclens, pre-op instructions, CBC, T&S ordered [] no [] H&P [] Preferences worksheet [] Scanned in EMR History of Eating Disorder - 10/27/2024 Comment: October 27, 2024 Diagnosed at age 18-19 years old. Has never been on medication.Has struggled with restriction in the past. Has been eating well throughout so far. Has seen counseling through taoism in the past. No concerns with mood at this time. Mental health resources provided. Alli Forrester APRN.CNP Nausea and Vomiting in ([facility]) - 10/27/2024 Comment: 10/27/24 Vitamin B6 doses reviewed. To notify if prescription is needed. Alli Forrester APRN.WILVER Constipation During in First Trimester ([facility]) - 10/27/2024 Comment: October 27, 2024 Discussed Colace and increased hydration. Alli Forrester APRN.WILVER Vasovagal Syncope - 09/10/2023 Tbi (Traumatic Brain Injury) ([facility]) - 05/06/2022 History of Depression - 05/06/2022 Migraine With Aura, Not Intractable, Without Status Migrainosus - 05/06/2022 Comment: October 27, 2024 Has been prescribed Rizatriptan in the past. Recommend avoiding during . Discussed Magnesium 400 mg per day for headache prevention and to notify if migraines are becoming an issue. Alli Forrester APRN.RADIO PROGRAM DIRECTOR Bmi 29.0-29.9,Adult - 05/06/2022 Social History Tobacco Use Smoking status: Never Smokeless tobacco: Never Vaping Use Vaping status: Never Used Substance Use Topics Alcohol use: Not Currently Comment: rare alcohol use, not while Drug use: Never Review of Systems HENT: Positive for congestion, postnasal drip, sinus pressure and sinus pain. Respiratory: Positive for cough. Negative for chest tightness, shortness of breath and wheezing. Cardiovascular: Negative. OBJECTIVE BP 90/46 Pulse 107 Temp (Src) 98.7 (Temporal) Wt 192 lb 3.9 oz (87.2kg) SpO2 99% LMP 08/31/2024 Physical Exam Vitals and nursing note reviewed. Constitutional: General: She is awake. She is not in acute distress. Appearance: Normal appearance. She is well-developed and well-groomed. She is not ill-appearing, toxic-appearing or diaphoretic. HENT: Head: Normocephalic. Right Ear: Hearing, tympanic membrane, ear canal and external ear normal. Left Ear: Hearing, tympanic membrane, ear canal and external ear normal. Nose: Mucosal edema, congestion and rhinorrhea present. Rhinorrhea is purulent. Right Sinus: Maxillary sinus tenderness and frontal sinus tenderness present. Left Sinus: Maxillary sinus tenderness and frontal sinus tenderness present. Eyes: General: Vision grossly intact. Conjunctiva/sclera: Conjunctivae normal. Pupils: Pupils are equal, round, and reactive to light. Neck: Vascular: No JVD. Trachea: Trachea normal. Pulmonary: Effort: Pulmonary effort is normal. No accessory muscle usage, prolonged expiration or respiratory distress. Breath sounds: Normal breath sounds. Musculoskeletal: Cervical back: Neck supple. Lymphadenopathy: Cervical: Cervical adenopathy present. Right cervical: Superficial cervical adenopathy present. Left cervical: Superficial cervical adenopathy present. Skin: General: Skin is warm and dry. Capillary Refill: Capillary refill takes less than 2 seconds. Neurological: General: No focal deficit present. Mental Status: She is alert and oriented to person, place, and time. Mental status is at baseline. Psychiatric: Attention and Perception: Attention and perception normal. Mood and Affect: Mood and affect normal. Speech: Speech normal. Behavior: Behavior normal. Behavior is cooperative. Thought Content: Thought content normal. Cognition and Memory: Cognition and memory normal. Judgment: Judgment normal. ASSESSMENT/PLAN: 1. Acute non-recurrent pansinusitis - ICD9: 461.8, ICD10: J01.40 - Will begin treatment with as per antibiotic as written, see orders - The patient should also be given OTC cough and cold meds as needed, warm salt water gargles, throat lozenges and/or OTC throat spray as needed, and nasal saline gtts and suction prn for the first 5-7 days of treatment. - Supportive care with plenty of fluids, rest, and analgesia prn. - Follow up in 3-5 days if symptoms persist or worsen. - AMOXICILLIN 875 MG-POTASSIUM CLAVULANATE 125 MG TABLET Portions of this note have been entered by ancillary staff. I have reviewed and when necessary edited, so that they are an adequate record of my encounter with this patient Please note that parts of this document were created using voice recognition software and therefore may contain grammatical errors. Patient verbalizes understanding of instructions from today's visit and in agreement with treatment plan. Questions answered. Agrees to call the office if questions, concerns of issues with acute symptoms not improving or if they worsen. See diagnoses and orders for additional plan(s). Allergies and medications were reviewed, list was updated, and refills given if needed. Past medical, surgical, social, and family history reviewed and updated as appropriate. Encouraged proper diet & exercise as well as compliance with taking medications. Age-appropriate health preventative measures were discussed. Return if symptoms worsen or fail to improve, for Keep next scheduled appointment.. Kamran Guthrie APRN-RADIO PROGRAM DIRECTOR documented in this encounter [facility] 02-20-2025 Note HNO ID: [id number] Author: CHRIS ALFORD PA-C Service: ? Author Type: Physician Corporate Security Manager Type: Progress Notes Filed: 02/20/2025 09:50 Note Text: This note was created using [employer]. Subjective Howard Donald is a 20 year old female. Patient is a 20-year-old female who complains of congestion and cough that she has been experiencing for the past 5 days. Patient reports sore throat but denies ear pain. Patient denies fever, chills or myalgia. Patient is at 25 weeks gestation today. Sinus Problem Associated symptoms include congestion, coughing and a sore throat. Review of Systems HENT: Positive for congestion and sore throat. Respiratory: Positive for cough. All other systems reviewed and are negative. Objective BP 110/66 Pulse 101 Temp 37 ?C (98.6 ?F) (Tympanic) Resp 18 Wt 87.3 kg (192 lb 7.4 oz) LMP 08/31/2024 SpO2 98% BMI 31.30 kg/m? Physical Exam Vitals and nursing note reviewed. Constitutional: Appearance: Normal appearance. She is normal weight. HENT: Head: Normocephalic and atraumatic. Right Ear: Tympanic membrane, ear canal and external ear normal. Left Ear: Tympanic membrane, ear canal and external ear normal. Nose: Nose normal. Mouth/Throat: Mouth: Mucous membranes are moist. Pharynx: Oropharynx is clear. Eyes: Extraocular Movements: Extraocular movements intact. Conjunctiva/sclera: Conjunctivae normal. Pupils: Pupils are equal, round, and reactive to light. Cardiovascular: Rate and Rhythm: Normal rate and regular rhythm. Pulses: Normal pulses. Heart sounds: Normal heart sounds. Pulmonary: Effort: Pulmonary effort is normal. Breath sounds: Normal breath sounds. Musculoskeletal: Cervical back: Normal range of motion and neck supple. Skin: General: Skin is warm and dry. Capillary Refill: Capillary refill takes less than 2 seconds. Neurological: General: No focal deficit present. Mental Status: She is alert and oriented to person, place, and time. Psychiatric: Mood and Affect: Mood normal. Behavior: Behavior normal. Thought Content: Thought content normal. Judgment: Judgment normal. Assessment and Plan Physical exam findings as noted above. Rapid strep test is negative. Supportive care instructions were discussed and the patient verbalizes excellent understanding of same. CLINICAL IMPRESSION: Acute URI ASSESSMENT/PLAN: 1. Sore throat - ICD9: 462, ICD10: J02.9 (primary diagnosis) - STREP A MOLECULAR (POC) 2. Acute URI - ICD9: 465.9, ICD10: J06.9 MDM Amount and/or Complexity of Data Reviewed Clinical lab tests: ordered and reviewed Risk of Complications, Morbidity, and/or Mortality Presenting problems: low Diagnostic procedures: low Management options: ryley Alford PA-C [facility] 02-20-2025 History of Present illness Narrative This note was created using [employer]. Subjective Howard Donald is a 20 year old female. Patient is a 20-year-old female who complains of congestion and cough that she has been experiencing for the past 5 days. Patient reports sore throat but denies ear pain. Patient denies fever, chills or myalgia. Patient is at 25 weeks gestation today. Sinus Problem Associated symptoms include congestion, coughing and a sore throat. Review of Systems HENT: Positive for congestion and sore throat. Respiratory: Positive for cough. All other systems reviewed and are negative. Objective BP 110/66 Pulse 101 Temp 37 C (98.6 F) (Tympanic) Resp 18 Wt 87.3 kg (192 lb 7.4 oz) LMP 08/31/2024 SpO2 98% BMI 31.30 kg/m Physical Exam Vitals and nursing note reviewed. Constitutional: Appearance: Normal appearance. She is normal weight. HENT: Head: Normocephalic and atraumatic. Right Ear: Tympanic membrane, ear canal and external ear normal. Left Ear: Tympanic membrane, ear canal and external ear normal. Nose: Nose normal. Mouth/Throat: Mouth: Mucous membranes are moist. Pharynx: Oropharynx is clear. Eyes: Extraocular Movements: Extraocular movements intact. Conjunctiva/sclera: Conjunctivae normal. Pupils: Pupils are equal, round, and reactive to light. Cardiovascular: Rate and Rhythm: Normal rate and regular rhythm. Pulses: Normal pulses. Heart sounds: Normal heart sounds. Pulmonary: Effort: Pulmonary effort is normal. Breath sounds: Normal breath sounds. Musculoskeletal: Cervical back: Normal range of motion and neck supple. Skin: General: Skin is warm and dry. Capillary Refill: Capillary refill takes less than 2 seconds. Neurological: General: No focal deficit present. Mental Status: She is alert and oriented to person, place, and time. Psychiatric: Mood and Affect: Mood normal. Behavior: Behavior normal. Thought Content: Thought content normal. Judgment: Judgment normal. Assessment and Plan Physical exam findings as noted above. Rapid strep test is negative. Supportive care instructions were discussed and the patient verbalizes excellent understanding of same. CLINICAL IMPRESSION: Acute URI ASSESSMENT/PLAN: 1. Sore throat - ICD9: 462, ICD10: J02.9 (primary diagnosis) - STREP A MOLECULAR (POC) 2. Acute URI - ICD9: 465.9, ICD10: J06.9 MDM Amount and/or Complexity of Data Reviewed Clinical lab tests: ordered and reviewed Risk of Complications, Morbidity, and/or Mortality Presenting problems: low Diagnostic procedures: low Management options: low Chris Alford PA-C documented in this encounter [facility] 02-16-2025 Progress note Formatting of t his note might be different from the original. DM-Pt doing well. Denies vaginal Bleeding, Leaking fluid, or regular Contractions. Pt reports good movement Physical Exam: Gen: female in no apparent distress Abd: soft, Gravid. Non tender to palpation. See flow sheet @ 24.1 weeks Assessment & Plan Supervision of high risk in second trimester ([facility]) Screening for diabetes mellitus Orders: GESTATIONAL GLUCOSE SCREEN, 1-HOUR, 50 GRAM, NON-FASTING; Future Encounter for supervision of normal first in third trimester ([facility]) Orders: SYPHILIS TREPONEMAL W/REFLEX; Future ANEMIA REFLEX PANEL; Future 24 weeks gestation of ([facility]) RTO 4 weeks Nicky Valladares MD [facility] 02-16-2025 Miscellaneous Notes DM-Pt doing well. Denies vaginal Bleeding, Leaking fluid, or regular Contractions. Pt reports good movement Physical Exam: Gen: female in no apparent distress Abd: soft, Gravid. Non tender to palpation. See flow sheet @ 24.1 weeks Assessment & Plan Supervision of high risk in second trimester ([facility]) Screening for diabetes mellitus Orders: GESTATIONAL GLUCOSE SCREEN, 1-HOUR, 50 GRAM, NON-FASTING; Future Encounter for supervision of normal first in third trimester ([facility]) Orders: SYPHILIS TREPONEMAL W/REFLEX; Future ANEMIA REFLEX PANEL; Future 24 weeks gestation of ([facility]) RTO 4 weeks Nicky Valladares MD documented in this encounter [facility] 02-16-2025 Instructions Gracy Pike MA - 02/16/2025 8:41 AM EDT SEQUENTIAL SCREENINGS [facility] offers sequential screenings for women who are interested in screenings for chromosomal abnormalities and certain defects during a . The sequential screen combines ultrasound and blood tests to determine the risk of chromosomal abnormalities, including Down's Syndrome (Trisomy 21) and Trisomy 18, as well as open neural tube defects including spina bifida. Ultrasound examination is performed between 11 weeks and 13 weeks gestational age. Blood tests are drawn after the ultrasound and again later in the between 15 and 21 weeks gestational age. Please let your physician know if you are interested in this testing. It will require an appointment with our personnel and payroll technician. This is not an ultrasound performed by a physician in our office during a routine visit. SIGNS AND SYMPTOMS OF LABOR 1. Contractions every 10 minutes or more often 2. Clear, pink, or brownish fluid (water) leaking from vagina 3. Feeling that baby is pushing down, pressure 4. Low, dull backache 5. Cramps that feel like a period 6. Cramps with or without diarrhea If you notice any of the above symptoms, contact our office at [phone] and ask to speak with a nurse. After hours, you can call [facility] at [phone] OR call [facility] at [phone] and ask to have the doctor licensed nurse practitioner paged. If you consider this an emergency, dial 9-1-1 or go to your nearest emergency department. NEED HELP? Are you dealing with a violent or abusive relationship? Are you a victim of rape or sexual assult? Call [facility] ([place]) 24 hour Crisis Hotline: 362.182.7014 or 545-944-0445. MANUAL Your Guide to a Healthy manual is now on-line. Visit [email or web address] to download your free copy documented in this encounter [facility] 01-21-2025 Progress note Formatting of t his note might be different from the original. S: Howard Donald is a 19 year old female who presents at 06/07/2025, by Last Menstrual Period for a routine visit. Denies headache, visual changes, chest pain, shortness of breath, vaginal bleeding, leakage of fluid, or dysuria. Feeling well, no complaints. O: See flow sheet Gen: No apparent distress Anatomy completed today Traveling to [place] next week. Reviewed travel precautions Itching seems to be improving ASSESSMENT/PLAN: 1. 20 weeks gestation of ([facility]) - ICD9: V22.2, ICD10: Z3A.20 (primary diagnosis) 2. Supervision of high risk in second trimester ([facility]) - ICD9: V23.9, ICD10: O09.92 3. Asthma affecting in first trimester ([facility]) - ICD9: 648.93, 493.90, ICD10: O99.511, J45.909 Albuterol prn Mandy Sam MD [facility] 01-21-2025 Miscellaneous Notes S: Howard Donald is a 19 year old female who presents at 06/07/2025, by Last Menstrual Period for a routine visit. Denies headache, visual changes, chest pain, shortness of breath, vaginal bleeding, leakage of fluid, or dysuria. Feeling well, no complaints. O: See flow sheet Gen: No apparent distress Anatomy completed today Traveling to [place] next week. Reviewed travel precautions Itching seems to be improving ASSESSMENT/PLAN: 1. 20 weeks gestation of (HCC) - ICD9: V22.2, ICD10: Z3A.20 (primary diagnosis) 2. Supervision of high risk in second trimester ([facility]) - ICD9: V23.9, ICD10: O09.92 3. Asthma affecting in first trimester ([facility]) - ICD9: 648.93, 493.90, ICD10: O99.511, J45.909 Albuterol prn Mandy Sam MD documented in this encounter [facility] 01-21-2025 Instructions Laura Solomon MA - 01/21/2025 9:35 AM EDT SEQUENTIAL SCREENINGS The [facility] offers sequential screenings for women who are interested in screenings for chromosomal abnormalities and certain defects during a . The sequential screen combines ultrasound and blood tests to determine the risk of chromosomal abnormalities, including Down's Syndrome (Trisomy 21) and Trisomy 18, as well as open neural tube defects including spina bifida. Ultrasound examination is performed between 11 weeks and 13 weeks gestational age. Blood tests are drawn after the ultrasound and again later in the between 15 and 21 weeks gestational age. Please let your physician know if you are interested in this testing. It will require an appointment with our personnel and payroll technician. This is not an ultrasound performed by a physician in our office during a routine visit. SIGNS AND SYMPTOMS OF LABOR 1. Contractions every 10 minutes or more often 2. Clear, pink, or brownish fluid (water) leaking from vagina 3. Feeling that baby is pushing down, pressure 4. Low, dull backache 5. Cramps that feel like a period 6. Cramps with or without diarrhea If you notice any of the above symptoms, contact our office at [phone] and ask to speak with a nurse. After hours, you can call doctors registry at [phone] OR call [facility] at [phone] and ask to have the doctor licensed nurse practitioner paged. If you consider this an emergency, dial 9-1-1 or go to your nearest emergency department. NEED HELP? Are you dealing with a violent or abusive relationship? Are you a victim of rape or sexual assult? Call [facility] ([place]) 24 hour Crisis Hotline: 717.666.7831 or 287-577-5735. MANUAL Your Guide to a Healthy manual is now on-line. Visit [email or web address] to download your free copy documented in this encounter [facility] 12-30-2024 Telephone encounter Note Patient updated and voiced understanding. EHP form faxed and copy for patients chart. Original mailed back to patient. Annamaria Gill LPN [facility] 12-30-2024 Miscellaneous Notes Patient updated and voiced understanding. EHP form faxed and copy for patients chart. Original mailed back to patient. Annamaria Gill LPN ----- Message from Donte Singleton MD sent at 12/30/2024 7:05 AM EDT ----- Patient's labs are unremarkable. Recommend healthy diet and exercise as tolerated. Form completed for physical and placed in outbox. documented in this encounter [facility] 12-30-2024 Telephone encounter Note ----- Message from Donte Singleton MD sent at 12/30/2024 7:05 AM EDT ----- Patient's labs are unremarkable. Recommend healthy diet and exercise as tolerated. Form completed for physical and placed in outbox. [facility] 12-29-2024 Note HNO ID: [id number] Author: DONTE SINGLETON MD Service: ? Author Type: Physician Type: Progress Notes Filed: 12/29/2024 11:54 Note Text: Chief Complaint Patient presents with: Establish Care HPI Howard Raul Donald is a 19 year old female who presents here today for Above Complaints. Previous PCP Dr. Kim Silvestre with last OV 02/2024. Needs physical today and forms completed. No concerns. Patient using albuterol inhaler before exercise and symptoms have been much improved. Denies repeat ER visits or hospitalizations. at 17W1d. . Last OV with OB 1 week ago reviewed. On vitamin. No concerns today. Baby boy they plan to name Shea. Has history of migraines treated with Maxalt PRN and zofran, but has not had any headaches in about 10 months. Triggers include caffeine use. No concerns today. Not taking anything for history of GERD. Denies recent symptoms. Past medical history, appointments, medications, allergies reviewed. Previous Medical History PAST MEDICAL HISTORY Diagnosis Date Asthma Concussion 2019 Depression GERD (gastroesophageal reflux disease) 09/10/2023 Migraines TBI (traumatic brain injury) ([facility]) 2019 fall down stairs Vasovagal syncope Previous Surgical History PAST SURGICAL HISTORY Procedure Laterality Date TONSILLECTOMY AND ADENOIDECTOMY TOOTH EXTRACTION Family History FAMILY HISTORY Problem Relation Age of Onset Hypertension Mother Diabetes Father Glaucoma Father No Known Problems Brother No Known Problems Brother Stroke Maternal Grandmother other (Pulmonary embolism) Maternal Grandmother other (heart murmur) Maternal Grandmother other (a fib) Maternal Uncle Cataract No Family History Detached Retina No Family History Macular Degen No Family History Blindness No Family History Amblyopia No Family History Strabismus No Family History Patient Allergies ALLERGIES Allergen Reactions Amoxicillin Other: See Comments Was given so many times as a child it stopped working- so they stopped giving to her Cats Itching Dust Itching, Other: See Comments Grass Pollen Rash Sneezing and Rash Current Medications Current Outpatient Medications on File Prior to Visit Medication Sig triamcinolone (KENALOG) 0.025 % ointment Apply to affected area two times a day. aspirin, enteric coated (ECOTRIN LOW STRENGTH) 81 mg EC tablet Take 1 tablet by mouth once daily. vit/iron fum/folic ac ( 1 + 1 ORAL) Take by mouth. albuterol HFA (VENTOLIN HFA) 90 mcg/actuation inhaler Inhale 2 Puffs as instructed every 4 hours as needed for wheezing/shortness of breath. ondansetron (ZOFRAN) 4 mg tablet Take 1 tablet by mouth every 8 hours as needed for nausea/vomiting. rizatriptan (MAXALT) 10 mg tablet Take 1 tablet (10 mg) by mouth as needed. May repeat in 2 hours if needed No current facility-administered medications on file prior to visit. Social History Social History Tobacco Use Smoking status: Never Smokeless tobacco: Never Vaping Use Vaping status: Never Used Substance Use Topics Alcohol use: Not Currently Drug use: Never Review of Symptoms REVIEW OF SYSTEMS GENERAL: No weight loss, malaise or fevers HEENT: Negative for frequent or significant headaches, No changes in hearing or vision, no nose bleeds or other nasal problems NECK: Negative for lumps, goiter, pain and significant neck swelling RESPIRATORY: Negative for cough, hemoptysis, wheezing, COPD, dyspnea or shortness of breath CARDIOVASCULAR: Negative for chest pain, leg swelling, hypertension, CHF or palpitations GI: No nausea, vomiting, or diarrhea : No history of dysuria, frequency or incontinence FERRY CAPTAIN: Negative for abnormal vaginal bleeding, abnormal vaginal discharge MUSCULOSKELETAL: Negative for joint pain or swelling, back pain or muscle pain SKIN: Negative for lesions, rash, and itching PSYCH: Negative for sleep disturbance, mood disorder and recent psychosocial stressors HEMATOLOGY/LYMPHOLOGY: Negative for prolonged bleeding, bruising easily or swollen nodes ENDOCRINE: Negative for cold or heat intolerance, polyuria, polydipsia and goiter NEURO: No history of headaches, syncope, paralysis, seizures or tremors EXAM: BP 98/58 Pulse 90 Ht 167 cm (5' 5.75) Wt 82.7 kg (182 lb 6.4 oz) LMP 08/31/2024 SpO2 99% BMI 29.67 kg/m? General Appearance: Well appearing, alert, in no acute distress, well-hydrated, well nourished.. Skin: Skin color, texture, turgor normal, no suspicious rashes or lesions. Head: Normocephalic, no masses, lesions, tenderness or abnormalities. Eyes: Anicteric sclera. Pupils are equally round and reactive to light. Extraocular movements are intact. . Ears: External ears normal, canals clear. Nose/Sinuses: Nares normal, septum midline, mucosa normal, no drainage or sinus tenderness. Oropharynx: Lips, mucosa, and tongue normal, teeth and gums normal, oropharynx (more content not included)... [facility] 12-29-2024 History of Present illness Narrative Chief Complaint Patient presents with: Establish Care HPI Howard Donald is a 19 year old female who presents here today for Above Complaints. Previous PCP Dr. Kim Silvestre with last OV 02/2024. Needs physical today and forms completed. No concerns. Patient using albuterol inhaler before exercise and symptoms have been much improved. Denies repeat ER visits or hospitalizations. at 17W1d. . Last OV with OB 1 week ago reviewed. On vitamin. No concerns today. Baby boy they plan to name Shea. Has history of migraines treated with Maxalt PRN and zofran, but has not had any headaches in about 10 months. Triggers include caffeine use. No concerns today. Not taking anything for history of GERD. Denies recent symptoms. Past medical history, appointments, medications, allergies reviewed. Previous Medical History PAST MEDICAL HISTORY Diagnosis Date Asthma Concussion 2019 Depression GERD (gastroesophageal reflux disease) 09/10/2023 Migraines TBI (traumatic brain injury) ([facility]) 2019 fall down stairs Vasovagal syncope Previous Surgical History PAST SURGICAL HISTORY Procedure Laterality Date TONSILLECTOMY & ADENOIDECTOMY <AGE 10 TOOTH EXTRACTION Family History FAMILY HISTORY Problem Relation Age of Onset Hypertension Mother Diabetes Father Glaucoma Father No Known Problems Brother No Known Problems Brother Stroke Maternal Grandmother other (Pulmonary embolism) Maternal Grandmother other (heart murmur) Maternal Grandmother other (a fib) Maternal Uncle Cataract No Family History Detached Retina No Family History Macular Degen No Family History Blindness No Family History Amblyopia No Family History Strabismus No Family History Patient Allergies ALLERGIES Allergen Reactions Amoxicillin Other: See Comments Was given so many times as a child it stopped working- so they stopped giving to her Cats Itching Dust Itching, Other: See Comments Grass Pollen Rash Sneezing and Rash Current Medications Current Outpatient Medications on File Prior to Visit Medication Sig triamcinolone (KENALOG) 0.025 % ointment Apply to affected area two times a day. aspirin, enteric coated (ECOTRIN LOW STRENGTH) 81 mg EC tablet Take 1 tablet by mouth once daily. vit/iron fum/folic ac ( 1 + 1 ORAL) Take by mouth. albuterol HFA (VENTOLIN HFA) 90 mcg/actuation inhaler Inhale 2 Puffs as instructed every 4 hours as needed for wheezing/shortness of breath. ondansetron (ZOFRAN) 4 mg tablet Take 1 tablet by mouth every 8 hours as needed for nausea/vomiting. rizatriptan (MAXALT) 10 mg tablet Take 1 tablet (10 mg) by mouth as needed. May repeat in 2 hours if needed No current facility-administered medications on file prior to visit. Social History Social History Tobacco Use Smoking status: Never Smokeless tobacco: Never Vaping Use Vaping status: Never Used Substance Use Topics Alcohol use: Not Currently Drug use: Never Review of Symptoms REVIEW OF SYSTEMS GENERAL: No weight loss, malaise or fevers HEENT: Negative for frequent or significant headaches, No changes in hearing or vision, no nose bleeds or other nasal problems NECK: Negative for lumps, goiter, pain and significant neck swelling RESPIRATORY: Negative for cough, hemoptysis, wheezing, COPD, dyspnea or shortness of breath CARDIOVASCULAR: Negative for chest pain, leg swelling, hypertension, CHF or palpitations GI: No nausea, vomiting, or diarrhea : No history of dysuria, frequency or incontinence FERRY CAPTAIN: Negative for abnormal vaginal bleeding, abnormal vaginal discharge MUSCULOSKELETAL: Negative for joint pain or swelling, back pain or muscle pain SKIN: Negative for lesions, rash, and itching PSYCH: Negative for sleep disturbance, mood disorder and recent psychosocial stressors HEMATOLOGY/LYMPHOLOGY: Negative for prolonged bleeding, bruising easily or swollen nodes ENDOCRINE: Negative for cold or heat intolerance, polyuria, polydipsia and goiter NEURO: No history of headaches, syncope, paralysis, seizures or tremors EXAM: BP 98/58 Pulse 90 Ht 167 cm (5' 5.75) Wt 82.7 kg (182 lb 6.4 oz) LMP 08/31/2024 SpO2 99% BMI 29.67 kg/m General Appearance: Well appearing, alert, in no acute distress, well-hydrated, well nourished.. Skin: Skin color, texture, turgor normal, no suspicious rashes or lesions. Head: Normocephalic, no masses, lesions, tenderness or abnormalities. Eyes: Anicteric sclera. Pupils are equally round and reactive to light. Extraocular movements are intact. . Ears: External ears normal, canals clear. Nose/Sinuses: Nares normal, septum midline, mucosa normal, no drainage or sinus tenderness. Oropharynx: Lips, mucosa, and tongue normal, teeth and gums normal, oropharynx normal. Neck: Supple, no adenopathy; thyroid symmetric, normal size, no bruits. Lungs: Lungs clear to auscultation. No wheezing, rhonchi, rales.. Heart: RRR without murmur, gallop, or rubs. No ectopy. Abdomen: Abdomen soft, non-tender. Bowel sounds normal. Distended consistent with 17 week . Extremities: No deformities, edema, skin discoloration, clubbing or cyanosis. Good capillary refill. . Peripheral Pulses: Normal. Neurologic: Gait normal. Reflexes normal and symmetric. Sensation grossly intact.. Lymph Nodes: No cervical lymphadenopathy and No supraclavicular lymphadenopathy. Health Maintenance List Asthma Action Plan Never done Asthma Control Test Never done Spirometry Never done Covid-19 Vaccine(2023- season) due on 06/13/2024 GC (Gonorrhea) Screening (18-24) due on 10/27/2025 Depression Screening due on 10/27/2025 Anxiety Screening due on 10/27/2025 Chlamydia Screening (18-24) due on 10/27/2025 Annual PCP Team Chronic Disease Visit due on 12/29/2025 Cervical Cancer Screening due on 10/27/2027 DTaP,Tdap,Td Vaccine(8 - Td or Tdap) due on 10/22/2033 Hepatitis B Vaccine Completed HPV Vaccine Completed Influenza Vaccine Completed RSV Vaccine(No Doses Required) Completed Hepatitis C Screening Completed HIV Screening Completed Meningococcal B Vaccine Discontinued ASSESSMENT/PLAN: 1. Encounter for medical examination to establish care - ICD9: V70.9, ICD10: Z00.00 (primary diagnosis) - Counseled on healthy diet and regular exercise - Recommend vitamin containing 0.4 mg of folic acid - Follow up for annual exam in one year - COMPLETE BLOOD COUNT AND DIFFERENTIAL - COMPREHENSIVE METABOLIC PANEL - LIPID PANEL, NONFASTING 2. Exercise-induced asthma - ICD9: 493.81, ICD10: J45.990 - Exercise-induced asthma stable - Continue current medications - Avoidance of triggers recommended 3. 17 weeks gestation of - ICD9: V22.2, ICD10: Z3A.17 Recommendations per OB. Continue vitamin. 4. Migraine with aura, not intractable, without status migrainosus - ICD9: 346.00, ICD10: G43.109 No recent migraines. Avoid known triggers. Discuss maxalt use with OB due to vasoconstriction effect. Red flags for re-assessment reviewed with patient in detail. 5. Gastroesophageal reflux disease, unspecified whether esophagitis present - ICD9: 530.81, ICD10: K21.9 No recent symptoms. - Discussed lifestyle modifications including limiting caffeine, no meals three hours before sleep, and head of bed elevation Donte Singleton MD documented in this encounter [facility] 12-27-2024 Note HNO ID: [id number] Author: CLARE FRANK MD Service: ? Author Type: Physician Type: Progress Notes Filed: 12/27/2024 09:29 Note Text: Master Welder offered: Patient declines. Howard Donald is a 19 year old female who presents for problem visit - spotting at 16 week gestation. HPI: Had intercourse yesterday morning followed by vaginal spotting that was brown-pink in color. No bleeding or spotting today. Some back soreness. Otherwise no complaints. No urinary symptoms. Normal BM's. Last week noticed cream colored vaginal discharge. No vaginal itching or burning. OB History Gravida1 Para0 Term0 Preterm0 AB0 Living0 SAB0 IAB0 Ectopic0 Multiple0 Live Births0 Conference Service Coordinator History LMP: 08/31/2024, Age at Menarche: 11 Age at First : 19 Age at Menopause: Conference Service Coordinator History Comments: Sexual Activity: Yes; Male; Not asked Contraception: No contraception data on record PAST MEDICAL HISTORY Diagnosis Date Depression GERD (gastroesophageal reflux disease) 09/10/2023 Migraines TBI (traumatic brain injury) ([facility]) 2019 PAST SURGICAL HISTORY Procedure Laterality Date TONSILLECTOMY AND ADENOIDECTOMY TOOTH EXTRACTION FAMILY HISTORY Problem Relation Age of Onset Hypertension Mother Diabetes Father Glaucoma Father No Known Problems Brother No Known Problems Brother Stroke Maternal Grandmother other (Pulmonary embolism) Maternal Grandmother other (heart murmur) Maternal Grandmother other (a fib) Maternal Uncle Cataract No Family History Detached Retina No Family History Macular Degen No Family History Blindness No Family History Amblyopia No Family History Strabismus No Family History Social History Tobacco Use Smoking status: Never Smokeless tobacco: Never Vaping Use Vaping status: Never Used Substance Use Topics Alcohol use: Not Currently Drug use: Never Current Outpatient Medications Medication Sig triamcinolone (KENALOG) 0.025 % ointment Apply to affected area two times a day. vit/iron fum/folic ac ( 1 + 1 ORAL) Take by mouth. albuterol HFA (VENTOLIN HFA) 90 mcg/actuation inhaler Inhale 2 Puffs as instructed every 4 hours as needed for wheezing/shortness of breath. ondansetron (ZOFRAN) 4 mg tablet Take 1 tablet by mouth every 8 hours as needed for nausea/vomiting. rizatriptan (MAXALT) 10 mg tablet Take 1 tablet (10 mg) by mouth as needed. May repeat in 2 hours if needed aspirin, enteric coated (ECOTRIN LOW STRENGTH) 81 mg EC tablet Take 1 tablet by mouth once daily. (Patient not taking: Reported on 12/15/2024) No current facility-administered medications for this visit. Allergies As of Date: 12/27/2024 Allergen Noted Reaction AMOXICILLIN 06/07/2023 Other: See Comments CATS 01/06/2023 Itching DUST 01/06/2023 Itching and Other: See Comments GRASS POLLEN 03/14/2021 Rash Fully Assessed 12/27/2024 REVIEW OF SYSTEMS Expanded ROS: See HPI. Allergies and current medication updated:Yes SENSITIVE EXAM: The sensitive examination was discussed with the Patient or Patient's Authorized Curtain Fitter. As applicable, any other physician, advance practice provider, medical student, or other health professional student that will be observing or involved in the sensitive examination for educational or training purposes was discussed with the Patient or Authorized Curtain Fitter. The Patient or Authorized Curtain Fitter has agreed to proceed with the sensitive examination. (Sensitive examination includes inspection and/or palpation of the breasts, pelvis, prostate and anorectal regions). EXAM: BP 98/60 Wt 182 lb 12.8 oz (82.9kg) LMP 08/31/2024 GENERAL: pleasant, female in no apparent distress HEENT: Normocephalic and atraumatic CHEST: Normal inspiratory effort PELVIC: external genitalia normal, normal Bartholin's glands, urethra, Keyser's glands, no vulvar lesions, no cervical lesions, good vaginal support, physiologic discharge present, normal appearing perineal body and perianal region, no bleeding, cervix closed and long NEURO: exam grossly non-focal EXTREMITIES: normal FHT 140-150 bpm today ASSESSMENT AND PLAN: Assessment AND Plan Vaginal discharge Orders: BACTERIAL VAGINOSIS NAAT JIM/TRICHOMONAS NAAT Vaginal spotting 16 weeks gestation of Reassurance provided. Likely due to recent intercourse. Clare Frank, Medical Decision Making: Problems: Low: Acute, uncomplicated illness or injury Medical Decision Making Level: 2 - Straightforward [facility] 12-27-2024 History of Present illness Narrative Master Welder offered: Patient declines. Howard Donald is a 19 year old female who presents for problem visit - spotting at 16 week gestation. HPI: Had intercourse yesterday morning followed by vaginal spotting that was brown-pink in color. No bleeding or spotting today. Some back soreness. Otherwise no complaints. No urinary symptoms. Normal BM's. Last week noticed cream colored vaginal discharge. No vaginal itching or burning. OB History Gravida1 Para0 Term0 Preterm0 AB0 Living0 SAB0 IAB0 Ectopic0 Multiple0 Live Births0 Conference Service Coordinator History LMP: 08/31/2024, Age at Menarche: 11 Age at First : 19 Age at Menopause: Conference Service Coordinator History Comments: Sexual Activity: Yes; Male; Not asked Contraception: No contraception data on record PAST MEDICAL HISTORY Diagnosis Date Depression GERD (gastroesophageal reflux disease) 09/10/2023 Migraines TBI (traumatic brain injury) ([facility]) 2019 PAST SURGICAL HISTORY Procedure Laterality Date TONSILLECTOMY & ADENOIDECTOMY <AGE 10 TOOTH EXTRACTION FAMILY HISTORY Problem Relation Age of Onset Hypertension Mother Diabetes Father Glaucoma Father No Known Problems Brother No Known Problems Brother Stroke Maternal Grandmother other (Pulmonary embolism) Maternal Grandmother other (heart murmur) Maternal Grandmother other (a fib) Maternal Uncle Cataract No Family History Detached Retina No Family History Macular Degen No Family History Blindness No Family History Amblyopia No Family History Strabismus No Family History Social History Tobacco Use Smoking status: Never Smokeless tobacco: Never Vaping Use Vaping status: Never Used Substance Use Topics Alcohol use: Not Currently Drug use: Never Current Outpatient Medications Medication Sig triamcinolone (KENALOG) 0.025 % ointment Apply to affected area two times a day. vit/iron fum/folic ac ( 1 + 1 ORAL) Take by mouth. albuterol HFA (VENTOLIN HFA) 90 mcg/actuation inhaler Inhale 2 Puffs as instructed every 4 hours as needed for wheezing/shortness of breath. ondansetron (ZOFRAN) 4 mg tablet Take 1 tablet by mouth every 8 hours as needed for nausea/vomiting. rizatriptan (MAXALT) 10 mg tablet Take 1 tablet (10 mg) by mouth as needed. May repeat in 2 hours if needed aspirin, enteric coated (ECOTRIN LOW STRENGTH) 81 mg EC tablet Take 1 tablet by mouth once daily. (Patient not taking: Reported on 12/15/2024) No current facility-administered medications for this visit. Allergies As of Date: 12/27/2024 Allergen Noted Reaction AMOXICILLIN 06/07/2023 Other: See Comments CATS 01/06/2023 Itching DUST 01/06/2023 Itching and Other: See Comments GRASS POLLEN 03/14/2021 Rash Fully Assessed 12/27/2024 REVIEW OF SYSTEMS Expanded ROS: See HPI. Allergies and current medication updated:Yes SENSITIVE EXAM: The sensitive examination was discussed with the Patient or Patient's Authorized Curtain Fitter. As applicable, any other physician, advance practice provider, medical student, or other health professional student that will be observing or involved in the sensitive examination for educational or training purposes was discussed with the Patient or Authorized Curtain Fitter. The Patient or Authorized Curtain Fitter has agreed to proceed with the sensitive examination. (Sensitive examination includes inspection and/or palpation of the breasts, pelvis, prostate and anorectal regions). EXAM: BP 98/60 Wt 182 lb 12.8 oz (82.9kg) LMP 08/31/2024 GENERAL: pleasant, female in no apparent distress HEENT: Normocephalic and atraumatic CHEST: Normal inspiratory effort PELVIC: external genitalia normal, normal Bartholin's glands, urethra, Keyser's glands, no vulvar lesions, no cervical lesions, good vaginal support, physiologic discharge present, normal appearing perineal body and perianal region, no bleeding, cervix closed and long NEURO: exam grossly non-focal EXTREMITIES: normal FHT 140-150 bpm today ASSESSMENT AND PLAN: Assessment & Plan Vaginal discharge Orders: BACTERIAL VAGINOSIS NAAT JIM/TRICHOMONAS NAAT Vaginal spotting 16 weeks gestation of Reassurance provided. Likely due to recent intercourse. Clare Frank DO Medical Decision Making: Problems: Low: Acute, uncomplicated illness or injury Medical Decision Making Level: 2 - Straightforward documented in this encounter [facility] 12-23-2024 Progress note Formatting of t his note might be different from the original. EH - S: Howard is a 19 year old female who presents at 16w2d for a routine visit. Feeling movement. Denies headache, visual changes, chest pain, shortness of breath, vaginal bleeding, leakage of fluid, or dysuria. Had asthma flare up last month. Using Albuterol a little more often. Reports severe itching to top of feet, worsening at night. No itching of palms. No rash. Never had this before . O: See flow sheet Gen: No apparent distress Abd: Gravid, nontender ASSESSMENT/PLAN: 1. Supervision of high risk in second trimester - ICD9: V23.9, ICD10: O09.92 (primary diagnosis) - Continue PNV and LDA - Trial Kenalog for itching of tops of feet. Reviewed Howard's symptoms with Dr. Bowles. 2. 16 weeks gestation of - ICD9: V22.2, ICD10: Z3A.16 - [id number] negative - Anatomy ultrasound next visit PTL precautions reviewed. RTO in 4 weeks or sooner as needed. Alli Forrester APRN.RADIO PROGRAM DIRECTOR [facility] 12-23-2024 Miscellaneous Notes EH - S: Howard is a 19 year old female who presents at 16w2d for a routine visit. Feeling movement. Denies headache, visual changes, chest pain, shortness of breath, vaginal bleeding, leakage of fluid, or dysuria. Had asthma flare up last month. Using Albuterol a little more often. Reports severe itching to top of feet, worsening at night. No itching of palms. No rash. Never had this before . O: See flow sheet Gen: No apparent distress Abd: Gravid, nontender ASSESSMENT/PLAN: 1. Supervision of high risk in second trimester - ICD9: V23.9, ICD10: O09.92 (primary diagnosis) - Continue PNV and LDA - Trial Kenalog for itching of tops of feet. Reviewed Howard's symptoms with Dr. Bowles. 2. 16 weeks gestation of - ICD9: V22.2, ICD10: Z3A.16 - [id number] negative - Anatomy ultrasound next visit PTL precautions reviewed. RTO in 4 weeks or sooner as needed. Alli Forrester APRN.WILVER documented in this encounter [facility] 12-23-2024 Instructions Sarah Salter MA - 12/23/2024 3:33 PM EDT SEQUENTIAL SCREENINGS The [facility] offers sequential screenings for women who are interested in screenings for chromosomal abnormalities and certain defects during a . The sequential screen combines ultrasound and blood tests to determine the risk of chromosomal abnormalities, including Down's Syndrome (Trisomy 21) and Trisomy 18, as well as open neural tube defects including spina bifida. Ultrasound examination is performed between 11 weeks and 13 weeks gestational age. Blood tests are drawn after the ultrasound and again later in the between 15 and 21 weeks gestational age. Please let your physician know if you are interested in this testing. It will require an appointment with our personnel and payroll technician. This is not an ultrasound performed by a physician in our office during a routine visit. SIGNS AND SYMPTOMS OF LABOR 1. Contractions every 10 minutes or more often 2. Clear, pink, or brownish fluid (water) leaking from vagina 3. Feeling that baby is pushing down, pressure 4. Low, dull backache 5. Cramps that feel like a period 6. Cramps with or without diarrhea If you notice any of the above symptoms, contact our office at [phone] and ask to speak with a nurse. After hours, you can call [employer] registry at [phone] OR call [facility] at [phone] and ask to have the doctor licensed nurse practitioner paged. If you consider this an emergency, dial 9-1- or go to your nearest emergency department. NEED HELP? Are you dealing with a violent or abusive relationship? Are you a victim of rape or sexual assult? Call [facility] ([place]) 24 hour Crisis Hotline: 616.514.9528 or 589-919-8860. MANUAL Your Guide to a Healthy manual is now on-line. Visit [email or web address] to download your free copy documented in this encounter [facility] 12-15-2024 Note HNO ID: [id number] Author: DONTE SINGLETON MD Service: ? Author Type: Physician Type: Progress Notes Filed: 12/15/2024 08:51 Note Text: Chief Complaint Patient presents with: ER F/U: Asthma HPI Howard Donald is a 19 year old female who presents here today for new limited ER Follow Up.. Patient evaluated at [facility] ED on 12/02 for asthma exacerbation, postnasal drainage, and sore throat. Was 13 weeks at time of their evaluation. VSS on room air. Normal exam. Workup for COVID, flu, RSV were negative. CXR normal. Did not require treatment in the ER and was discharged home with rx for Prednisone 60 mg daily x 5 days. Since discharge, URI symptoms have resolved and has not had wheezing or SOB. With exertion she has noticed some mild dry cough, but still has not needed her inhaler for this. Denies fever/chills, chest pain, chest congestion, hempotysis, sore throat, headache, myalgias, fatigue, new loss of taste/smell, nausea, vomiting, diarrhea. Typical triggers for her asthma include seasonal changes and exercise. Uses her albuterol inhaler less than weekly typically. Has had to use inhaler 3 times since discharge with last use 2 days after ER evaluation. Past medical history, appointments, medications, allergies reviewed. Previous Medical History PAST MEDICAL HISTORY Diagnosis Date Depression GERD (gastroesophageal reflux disease) 09/10/2023 Migraines TBI (traumatic brain injury) ([facility]) 2019 Previous Surgical History PAST SURGICAL HISTORY Procedure Laterality Date TONSILLECTOMY AND ADENOIDECTOMY TOOTH EXTRACTION Family History FAMILY HISTORY Problem Relation Age of Onset Hypertension Mother Diabetes Father Glaucoma Father No Known Problems Brother No Known Problems Brother Stroke Maternal Grandmother other (Pulmonary embolism) Maternal Grandmother other (heart murmur) Maternal Grandmother other (a fib) Maternal Uncle Cataract No Family History Detached Retina No Family History Macular Degen No Family History Blindness No Family History Amblyopia No Family History Strabismus No Family History Patient Allergies ALLERGIES Allergen Reactions Cats Itching Dust Itching, Other: See Comments Grass Pollen Rash Sneezing and Rash Current Medications Current Outpatient Medications on File Prior to Visit Medication Sig aspirin, enteric coated (ECOTRIN LOW STRENGTH) 81 mg EC tablet Take 1 tablet by mouth once daily. (Patient not taking: Reported on 12/15/2024) vit/iron fum/folic ac ( 1 + 1 ORAL) Take by mouth. albuterol HFA (VENTOLIN HFA) 90 mcg/actuation inhaler Inhale 2 Puffs as instructed every 4 hours as needed for wheezing/shortness of breath. ondansetron (ZOFRAN) 4 mg tablet Take 1 tablet by mouth every 8 hours as needed for nausea/vomiting. rizatriptan (MAXALT) 10 mg tablet Take 1 tablet (10 mg) by mouth as needed. May repeat in 2 hours if needed No current facility-administered medications on file prior to visit. Social History Social History Tobacco Use Smoking status: Never Smokeless tobacco: Never Vaping Use Vaping status: Never Used Substance Use Topics Alcohol use: Not Currently Drug use: Never Review of Symptoms REVIEW OF SYSTEMS See HPI EXAM: BP 98/58 Pulse 96 Resp 16 Wt 81.8 kg (180 lb 6.4 oz) LMP 08/31/2024 SpO2 99% BMI 28.25 kg/m? General Appearance: Well appearing, alert, in no acute distress, well-hydrated, well nourished.. Skin: Skin color, texture, turgor normal, no suspicious rashes or lesions. Lungs: Lungs clear to auscultation. No wheezing, rhonchi, rales.. Heart: RRR without murmur, gallop, or rubs. No ectopy. Health Maintenance List Asthma Action Plan Never done Asthma Control Test Never done Spirometry Never done Covid-19 Vaccine(2023- season) due on 06/13/2024 GC (Gonorrhea) Screening (18-24) due on 10/27/2025 Depression Screening due on 10/27/2025 Anxiety Screening due on 10/27/2025 Chlamydia Screening (18-24) due on 10/27/2025 Annual PCP Team Chronic Disease Visit due on 12/15/2025 Cervical Cancer Screening due on 10/27/2027 DTaP,Tdap,Td Vaccine(8 - Td or Tdap) due on 10/22/2033 Hepatitis B Vaccine Completed HPV Vaccine Completed Influenza Vaccine Completed RSV Vaccine(No Doses Required) Completed Hepatitis C Screening Completed HIV Screening Completed Meningococcal B Vaccine Discontinued ASSESSMENT/PLAN: 1. Mild intermittent asthma with acute exacerbation - ICD9: 493.92, ICD10: J45.21 (primary diagnosis) Exacerbation symptoms have resolved. I had a long discussion with the patient about new GISSELL guidelines for mild intermittent asthma and their recommendation for ICS with formoterol for PRN use. Formoterol is category C in and does not appear to be as extensively studied as other LABA's for . Discussed with patient if her symptoms are rare, would have her continue albuterol and if she (more content not included)... [facility] 12-15-2024 History of Present illness Narrative Chief Complaint Patient presents with: ER F/U: Asthma HPI Howard Donald is a 19 year old female who presents here today for new limited ER Follow Up.. Patient evaluated at [facility] ED on 12/02 for asthma exacerbation, postnasal drainage, and sore throat. Was 13 weeks at time of their evaluation. VSS on room air. Normal exam. Workup for COVID, flu, RSV were negative. CXR normal. Did not require treatment in the ER and was discharged home with rx for Prednisone 60 mg daily x 5 days. Since discharge, URI symptoms have resolved and has not had wheezing or SOB. With exertion she has noticed some mild dry cough, but still has not needed her inhaler for this. Denies fever/chills, chest pain, chest congestion, hempotysis, sore throat, headache, myalgias, fatigue, new loss of taste/smell, nausea, vomiting, diarrhea. Typical triggers for her asthma include seasonal changes and exercise. Uses her albuterol inhaler less than weekly typically. Has had to use inhaler 3 times since discharge with last use 2 days after ER evaluation. Past medical history, appointments, medications, allergies reviewed. Previous Medical History PAST MEDICAL HISTORY Diagnosis Date Depression GERD (gastroesophageal reflux disease) 09/10/2023 Migraines TBI (traumatic brain injury) ([facility]) 2019 Previous Surgical History PAST SURGICAL HISTORY Procedure Laterality Date TONSILLECTOMY & ADENOIDECTOMY <AGE 10 TOOTH EXTRACTION Family History FAMILY HISTORY Problem Relation Age of Onset Hypertension Mother Diabetes Father Glaucoma Father No Known Problems Brother No Known Problems Brother Stroke Maternal Grandmother other (Pulmonary embolism) Maternal Grandmother other (heart murmur) Maternal Grandmother other (a fib) Maternal Uncle Cataract No Family History Detached Retina No Family History Macular Degen No Family History Blindness No Family History Amblyopia No Family History Strabismus No Family History Patient Allergies ALLERGIES Allergen Reactions Cats Itching Dust Itching, Other: See Comments Grass Pollen Rash Sneezing and Rash Current Medications Current Outpatient Medications on File Prior to Visit Medication Sig aspirin, enteric coated (ECOTRIN LOW STRENGTH) 81 mg EC tablet Take 1 tablet by mouth once daily. (Patient not taking: Reported on 12/15/2024) vit/iron fum/folic ac ( 1 + 1 ORAL) Take by mouth. albuterol HFA (VENTOLIN HFA) 90 mcg/actuation inhaler Inhale 2 Puffs as instructed every 4 hours as needed for wheezing/shortness of breath. ondansetron (ZOFRAN) 4 mg tablet Take 1 tablet by mouth every 8 hours as needed for nausea/vomiting. rizatriptan (MAXALT) 10 mg tablet Take 1 tablet (10 mg) by mouth as needed. May repeat in 2 hours if needed No current facility-administered medications on file prior to visit. Social History Social History Tobacco Use Smoking status: Never Smokeless tobacco: Never Vaping Use Vaping status: Never Used Substance Use Topics Alcohol use: Not Currently Drug use: Never Review of Symptoms REVIEW OF SYSTEMS See HPI EXAM: BP 98/58 Pulse 96 Resp 16 Wt 81.8 kg (180 lb 6.4 oz) LMP 08/31/2024 SpO2 99% BMI 28.25 kg/m General Appearance: Well appearing, alert, in no acute distress, well-hydrated, well nourished.. Skin: Skin color, texture, turgor normal, no suspicious rashes or lesions. Lungs: Lungs clear to auscultation. No wheezing, rhonchi, rales.. Heart: RRR without murmur, gallop, or rubs. No ectopy. Health Maintenance List Asthma Action Plan Never done Asthma Control Test Never done Spirometry Never done Covid-19 Vaccine(2023- season) due on 06/13/2024 GC (Gonorrhea) Screening (18-24) due on 10/27/2025 Depression Screening due on 10/27/2025 Anxiety Screening due on 10/27/2025 Chlamydia Screening (18-24) due on 10/27/2025 Annual PCP Team Chronic Disease Visit due on 12/15/2025 Cervical Cancer Screening due on 10/27/2027 DTaP,Tdap,Td Vaccine(8 - Td or Tdap) due on 10/22/2033 Hepatitis B Vaccine Completed HPV Vaccine Completed Influenza Vaccine Completed RSV Vaccine(No Doses Required) Completed Hepatitis C Screening Completed HIV Screening Completed Meningococcal B Vaccine Discontinued ASSESSMENT/PLAN: 1. Mild intermittent asthma with acute exacerbation - ICD9: 493.92, ICD10: J45.21 (primary diagnosis) Exacerbation symptoms have resolved. I had a long discussion with the patient about new GISSELL guidelines for mild intermittent asthma and their recommendation for ICS with formoterol for PRN use. Formoterol is category C in and does not appear to be as extensively studied as other LABA's for . Discussed with patient if her symptoms are rare, would have her continue albuterol and if she is having worsening cough/wheezing/SOB would add on daily ICS. Red flags for re-assessment reviewed with patient in detail. 2. 15 weeks gestation of - ICD9: V22.2, ICD10: Z3A.15 Managed by OB. Keep f/u as scheduled. Donte Singleton MD documented in this encounter [facility] 12-02-2024 Telephone encounter Note 13w2d Patient called with c/o SOB, chest pain and back pain. Hx of asthma. Called to inquire if she should go to ER or Express Care. Patient has used her rescue inhaler x3 without relief and a hot shower. Advised to go to ER for evaluation. Patient voiced agreement. FYI - only. Mandy Pearl, RN [facility] 12-02-2024 Miscellaneous Notes 13w2d Patient called with c/o SOB, chest pain and back pain. Hx of asthma. Called to inquire if she should go to ER or Express Care. Patient has used her rescue inhaler x3 without relief and a hot shower. Advised to go to ER for evaluation. Patient voiced agreement. FYI - only. Mandy Pearl, RN documented in this encounter [facility] 11-26-2024 Progress note Formatting of t his note might be different from the original. S: Howard Donald is a 19 year old female who presents at 06/07/2025, by Last Menstrual Period for a routine visit. Denies headache, visual changes, chest pain, shortness of breath, vaginal bleeding, leakage of fluid, or dysuria. Feeling well, no complaints. Nausea improved Rash on ankles and torso. Lotion does help. No spots on O: See flow sheet Gen: No apparent distress NT completed today NIPT normal Labs completed ASSESSMENT/PLAN: 1. 12 weeks gestation of - ICD9: V22.2, ICD10: Z3A.12 (primary diagnosis) 2. Encounter for supervision of high risk in first trimester, antepartum - ICD9: V23.9, ICD10: O09.91 Mandy Sam MD [facility] 11-26-2024 Miscellaneous Notes S: Howard Donald is a 19 year old female who presents at 06/07/2025, by Last Menstrual Period for a routine visit. Denies headache, visual changes, chest pain, shortness of breath, vaginal bleeding, leakage of fluid, or dysuria. Feeling well, no complaints. Nausea improved Rash on ankles and torso. Lotion does help. No spots on O: See flow sheet Gen: No apparent distress NT completed today NIPT normal Labs completed ASSESSMENT/PLAN: 1. 12 weeks gestation of - ICD9: V22.2, ICD10: Z3A.12 (primary diagnosis) 2. Encounter for supervision of high risk in first trimester, antepartum - ICD9: V23.9, ICD10: O09.91 Mandy Sam MD documented in this encounter [facility] 11-26-2024 Instructions Linh Norman MA - 11/26/2024 9:27 AM EST SEQUENTIAL SCREENINGS The [facility] offers sequential screenings for women who are interested in screenings for chromosomal abnormalities and certain defects during a . The sequential screen combines ultrasound and blood tests to determine the risk of chromosomal abnormalities, including Down's Syndrome (Trisomy 21) and Trisomy 18, as well as open neural tube defects including spina bifida. Ultrasound examination is performed between 11 weeks and 13 weeks gestational age. Blood tests are drawn after the ultrasound and again later in the between 15 and 21 weeks gestational age. Please let your physician know if you are interested in this testing. It will require an appointment with our personnel and payroll technician. This is not an ultrasound performed by a physician in our office during a routine visit. SIGNS AND SYMPTOMS OF LABOR 1. Contractions every 10 minutes or more often 2. Clear, pink, or brownish fluid (water) leaking from vagina 3. Feeling that baby is pushing down, pressure 4. Low, dull backache 5. Cramps that feel like a period 6. Cramps with or without diarrhea If you notice any of the above symptoms, contact our office at [phone] and ask to speak with a nurse. After hours, you can call doctors registry at [phone] OR call [facility] at [phone] and ask to have the doctor licensed nurse practitioner paged. If you consider this an emergency, dial or go to your nearest emergency department. NEED HELP? Are you dealing with a violent or abusive relationship? Are you a victim of rape or sexual assult? Call [facility] ([place]) 24 hour Crisis Hotline: 907.531.6736 or 316-376-6813. MANUAL Your Guide to a Healthy manual is now on-line. Visit [email or web address] to download your free copy documented in this encounter [facility] 11-10-2024 Telephone encounter Note Patient notified. Inessa Sams RN [facility] 11-10-2024 Miscellaneous Notes Patient notified. Inessa Sams RN Agree with advice 10w1d Patient calling because her dog over 50lb jumped directly on abdomen this morning and she is now having intermittent mild cramping. No bleeding or other concerns. Advised to continue to monitor and call with any bleeding or worsening pain. Please advise. Inessa Sams RN documented in this encounter [facility] 11-10-2024 Telephone encounter Note Agree with advice [facility] Work Phone: 11-10-2024 Telephone encounter Note 10w1d Patient calling because her dog over 50lb jumped directly on abdomen this morning and she is now having intermittent mild cramping. No bleeding or other concerns. Advised to continue to monitor and call with any bleeding or worsening pain. Please advise. Inessa Sams RN [facility] 11-04-2024 Telephone encounter Note Patient currently 9w2d, last seen in office on 10/27 for New OB. Next appointment on 11/26. Destiney Gilman RN [facility] 11-04-2024 Miscellaneous Notes Patient currently 9w2d, last seen in office on 10/27 for New OB. Next appointment on 11/26. Destiney Gilman RN documented in this encounter [facility] 10-26-2024 Note HNO ID: [id number] Author: ALLI FORRESTER APRN.RADIO PROGRAM DIRECTOR Service: ? Author Type: Nurse Practitioner Type: Progress Notes Filed: 10/27/2024 10:03 Note Text: Master Welder offered: Patient declines. INITIAL OB ASSESSMENT HPI: Howard is a 19 year old White Female here to establish Obstetrical Care. Patient's last menstrual period was 08/31/2024. from OB Dating Form. was planned Complaints: No OB History T0 L0 SAB0 IAB0 Ectopic0 Multiple0 Live Births0 Previous history: Prior : never History of 4th degree laceration: no History of shoulder dystocia: no History of Hypertensive disorders including pre-eclampsia or gestational hypertension: no History of gestational diabetes: no Patient's Risk Screening for delivery: Have you had a prior waldron between 20w and 36w6d? No How many pregnancies have you had before? 0 Did you have a previous baby with a GBS Infection? No Please select all that apply for any prior : N/A MEDICAL/PSYCHOSOCIAL HISTORY: Severe Bleeding with delivery: Thyroid Disease: Gestational Hypertension: Preeclampsia: Diabetes in : No results found for: ABORHD BMI 28.19 kg/(m2) Last Pap: never done History of abnormal pap: no Prior treatment for cervical dysplasia: none. Last HPV: n/a History of STDs: N/A Partner History of STDs: None Did you have a partner with Herpes? No Tobacco use: No E-Cigarette/Vaping Use: No Caffeine use: No Drug use: No Alcohol use: No Multivitamin with Folic acid: Yes Would refuse blood transfusion if medically necessary: No Social Needs: How often does this describe you? I don't have enough money to pay my bills: Never Within the past 12 months, have you worried that your food would run out before you had money to buy more? Never In the past 12 months, has lack of reliable transportation kept you from going to medical appointments or work, or from getting things needed for daily living? Never In the past 12 months, have you had any concerns about having a place to live, or about the condition or quality of your housing? Never Would you like more information on any of the following (please check all that apply)? Centering (group care classes) Social History: Do you have any history of depression, anxiety, PTSD, or other mood problems? Yes Do you have a history of abuse or trauma that may impact your experience? No Are you currently employed? Yes Depression/Anxiety Screening: admits to symptoms of depression. OB Depression and Anxiety Screening- This Encounter (since 10/26/2024) Over the past 2 weeks have you felt down, depressed, or hopeless? Negative Over the past two weeks, have you felt little interest or pleasure in doing things?? Negative Feeling nervous, anxious or on edge 0-Not at all Not being able to stop or control worrying 0-Not al all Anxiety Pre-Screening Total (If >/= 3 additional questions will be reviewed) 0 Genetic Screening: Partner present: No Patient verbalized knowledge of partner family health history: Yes Do you or your partner have any personal or family history of defects not previously discussed: No Do you have history of a complicated by anomaly, genetic condition, or demise: No Preeclampsia Risk Screening: Screening for prevention of preeclampsia: High risk factors: None Moderate risk ractors: Nulliparity OB Risk Screening: Completed, no positive findings documented. 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 ergocalciferol 50,000 unit capsule (VITAMIN D2, DRISDOL) Take 1 capsule by mouth one time a week. Use as directed. 12 capsule 0 albuterol HFA (VENTOLIN HFA) 90 mcg/actuation inhaler Inhale 2 Puffs as instructed every 4 hours as needed for wheezing/shortness of breath. 1 Each 2 ondansetron (ZOFRAN) 4 mg tablet Take 1 tablet by mouth every 8 hours as needed for nausea/vomiting. 30 tablet 0 rizatriptan (MAXALT) 10 mg tablet Take 1 tablet (10 mg) by mouth as needed. May repeat in 2 hours if needed 9 tablet 11 No current facility-administered medications for this visit. Allergies As of Date: 10/27/2024 Allergen Noted Reaction CATS 01/06/2023 Itching DUST 01/06/2023 Itching and Other: See Comments GRASS POLLEN 03/14/2021 Rash Fully Assessed 10/27/2024 Does patient have penicillin allergy: No REVIEW OF SYSTEMS: GENERAL: Negative for: Fever or Chills HEENT: Negative for: Headache, Impaired Vision, Ringi (more content not included)... [facility] 10-26-2024 History of Present illness Narrative Master Welder offered: Patient declines. INITIAL OB ASSESSMENT HPI: Howard is a 19 year old White Female here to establish Obstetrical Care. Patient's last menstrual period was 08/31/2024. from OB Dating Form. was planned Complaints: No OB History T0 L0 SAB0 IAB0 Ectopic0 Multiple0 Live Births0 Previous history: Prior : never History of 4th degree laceration: no History of shoulder dystocia: no History of Hypertensive disorders including pre-eclampsia or gestational hypertension: no History of gestational diabetes: no Patient's Risk Screening for delivery: Have you had a prior waldron between 20w and 36w6d? No How many pregnancies have you had before? 0 Did you have a previous baby with a GBS Infection? No Please select all that apply for any prior : N/A MEDICAL/PSYCHOSOCIAL HISTORY: Severe Bleeding with delivery: Thyroid Disease: Gestational Hypertension: Preeclampsia: Diabetes in : No results found for: ABORHD BMI 28.19 kg/(m^2) Last Pap: never done History of abnormal pap: no Prior treatment for cervical dysplasia: none. Last HPV: n/a History of STDs: N/A Partner History of STDs: None Did you have a partner with Herpes? No Tobacco use: No E-Cigarette/Vaping Use: No Caffeine use: No Drug use: No Alcohol use: No Multivitamin with Folic acid: Yes Would refuse blood transfusion if medically necessary: No Social Needs: How often does this describe you? I don't have enough money to pay my bills: Never Within the past 12 months, have you worried that your food would run out before you had money to buy more? Never In the past 12 months, has lack of reliable transportation kept you from going to medical appointments or work, or from getting things needed for daily living? Never In the past 12 months, have you had any concerns about having a place to live, or about the condition or quality of your housing? Never Would you like more information on any of the following (please check all that apply)? Centering (group care classes) Social History: Do you have any history of depression, anxiety, PTSD, or other mood problems? Yes Do you have a history of abuse or trauma that may impact your experience? No Are you currently employed? Yes Depression/Anxiety Screening: admits to symptoms of depression. OB Depression and Anxiety Screening- This Encounter (since 10/26/2024) Over the past 2 weeks have you felt down, depressed, or hopeless? Negative Over the past two weeks, have you felt little interest or pleasure in doing things? Negative Feeling nervous, anxious or on edge 0-Not at all Not being able to stop or control worrying 0-Not al all Anxiety Pre-Screening Total (If >/= 3 additional questions will be reviewed) 0 Genetic Screening: Partner present: No Patient verbalized knowledge of partner family health history: Yes Do you or your partner have any personal or family history of defects not previously discussed: No Do you have history of a complicated by anomaly, genetic condition, or demise: No Preeclampsia Risk Screening: Screening for prevention of preeclampsia: High risk factors: None Moderate risk ractors: Nulliparity OB Risk Screening: Completed, no positive findings documented. 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 ergocalciferol 50,000 unit capsule (VITAMIN D2, DRISDOL) Take 1 capsule by mouth one time a week. Use as directed. 12 capsule 0 albuterol HFA (VENTOLIN HFA) 90 mcg/actuation inhaler Inhale 2 Puffs as instructed every 4 hours as needed for wheezing/shortness of breath. 1 Each 2 ondansetron (ZOFRAN) 4 mg tablet Take 1 tablet by mouth every 8 hours as needed for nausea/vomiting. 30 tablet 0 rizatriptan (MAXALT) 10 mg tablet Take 1 tablet (10 mg) by mouth as needed. May repeat in 2 hours if needed 9 tablet 11 No current facility-administered medications for this visit. Allergies As of Date: 10/27/2024 Allergen Noted Reaction CATS 01/06/2023 Itching DUST 01/06/2023 Itching and Other: See Comments GRASS POLLEN 03/14/2021 Rash Fully Assessed 10/27/2024 Does patient have penicillin allergy: No REVIEW OF SYSTEMS: GENERAL: Negative for: Fever or Chills HEENT: Negative for: Headache, Impaired Vision, Ringing in Ears, Nosebleeds NECK: Negative for: Swelling, Pain, Stiffness RESPIRATORY: Negative for: Cough, Shortness of breath, Wheezing GASTROINTESTINAL: Negative for: Heartburn, Diarrhea, Blood in stool + nausea, constipation MUSCULOSKELETAL: Negative for: Muscle or joint pain, stiffness, Joint swelling NEUROLOGIC/PSYCHIATRIC: Negative for: Weakness, Paralysis, Numbness, Tingling, Tremor, Anxiety, Depression, Memory loss SKIN: Negative for: Rash, Itching GENITOURINARY: Negative for: vaginal itching, vaginal discharge, hematuria or dysuria SENSITIVE EXAM: The sensitive examination was discussed with the Patient or Patient's Authorized Curtain Fitter. As applicable, any other physician, advance practice provider, medical student, or other health professional student that will be observing or involved in the sensitive examination for educational or training purposes was discussed with the Patient or Authorized Curtain Fitter. The Patient or Authorized Curtain Fitter has agreed to proceed with the sensitive examination. (Sensitive examination includes inspection and/or palpation of the breasts, pelvis, prostate and anorectal regions). PHYSICAL EXAM: BP 110/62 Ht 5' 7 (1.70m) Wt 180 lb (81.6kg) LMP 08/31/2024 BMI 28.19 kg/(m^2). GENERAL: pleasant in no apparent distress DERMATOLOGY: Normal, without lesions, non-icteric, and non-hirsute NECK: Supple, full range of motion, no adenopathy, and thyroid normal CHEST: Normal inspiratory effort BREAST: soft, non-tender, symmetric, no dominant mass, normal nipple-areolar complex, no lymphadenopathy, and no nipple discharge ABDOMEN: soft, non-tender, and no masses NEURO: alert and oriented x3,exam grossly non-focal PELVIS: External genitalia normal without lesions. Perineal body intact. No vaginal or cervical lesions. Cervix closed. Uterus 8 week size. No adnexal masses or tenderness. Clinical Pelvimetry: Pelvimetry clinically assessed as adequate Limited OB ultrasound exam: single intrauterine and positive cardiac activity ASSESSMENT: 19 year old at 8w1d wks gestational age PLAN: 1) Patient oriented to practice. Patient given new OB orientation folder. Discussed nutrition, folic acid supplementation, dietary guidelines, exercise, smoking, alcohol, caffeine, and drug use. Discussed gestational weight gain guidelines. Discussed routine OB labs including STD/HIV. Discussed how to access Your guide to a health and the Micro Computer Specialist. Discussed hemoglobin electrophoresis. Patient: Accepts Reviewed midwifery and station worker services that are available. 2) Screening: Hemoglobin A1C: ordered Baby Aspirin: The patient has been counseled about the potential benefits of low dose aspirin in and our recommendation that this be offered to all patients, regardless of whether they meet the high risk criteria specified above. She Accepts Aneuploidy Screening: Discussed aneuploidy screening, nuchal translucency/first trimester early anatomy ultrasound and NIPT. The risks/benefits and limitations of NIPT/aneuploidy screening were reviewed including the potential for false negative and false positive results. The availability of genetic counseling was reviewed. Information on aneuploidy screening was provided. The patient chooses to proceed with First trimester early anatomy ultrasound (12-13w6d) and NIPT (10 weeks) - understands out of pocket cost potential Myriad Carrier Screening: Discussed myriad carrier screening. We discussed the availability of professional-society guided carrier screening and reviewed the conditions screened and limitations of screening. The availability of genetic counseling was reviewed. Information on carrier screening was provided. The patient Accepts 3) Patient offered option of Virtual Visits. Patient unsure. May consider in future. ACTIVE PROBLEM LIST Encounter for Supervision of High Risk in First Trimester, Antepartum - 10/27/2024 Comment: Care Checklist Vaccines: [] Flu vaccine [] declined [] RSV vaccine 32 0/7 - 36 6/7 (Jun - Nov) [] declined [] COVID vaccine [] declined [] TDaP 27-36 [] declined First trimester: [x] Dating US [] 1st tri labs [x] Pap smear [x] Carrier screening [] declined [x] NIPT screening [] declined [x] First trimester anatomy scan [] declined [x] universal ASA ordered (start 12w-16w) [] declined [] M Power Consult [] not indicated [] declined Second trimester: [] Anatomy scan [] Mode of Delivery - [] Feeding - [] Pump ordered [] Diabetes screen [] CBC, RPR [] Behavioral Health Screening Third trimester (28-30 weeks): [] Consent [] Contraception [] Copy Center Specialist [] TeamBirth handout Third trimester (36-40 weeks): [] GBS [] Presentation - [] Scheduled [] yes - Hibiclens, pre-op instructions, CBC, T&S ordered [] no [] H&P [] Preferences worksheet [] Scanned in EMR Asthma Affecting in First Trimester - 10/27/2024 Comment: October 27, 2024 Uses albuterol PRN. No Hemabate with delivery. Alli Forrester APRN.RADIO PROGRAM DIRECTOR History of Eating Disorder - 10/27/2024 History of Depression - 05/06/2022 Comment: October 27, 2024 Diagnosed at age 18-19 years old. Has never been on medication.Has struggled with restriction in the past. Has been eating well throughout so far. Has seen counseling through taoism in the past. No concerns with mood at this time. Mental health resources provided. Alli Forrester APRN.WILVER Migraine With Aura, Not Intractable, Without Status Migrainosus - 05/06/2022 Comment: October 27, 2024 Has been prescribed Rizatriptan in the past. Recommend avoiding during . Discussed Magnesium 400 mg per day for headache prevention and to notify if migraines are becoming an issue. Alli Forrester APRN.CNP Nausea and Vomiting in - 10/27/2024 Comment: 10/27/24 Vitamin B6 doses reviewed. To notify if prescription is needed. Alli Forrester APRN.CNP Constipation During in First Trimester - 10/27/2024 Comment: October 27, 2024 Discussed Colace and increased hydration. Alli Forrester APRN.CNP Follow up in 4 weeks or sooner prn. Plan for NT scan between 12w0d and 13w6d gestation. Alli Forrester APRN.CNP documented in this encounter [facility] 10-26-2024 Instructions Alli Forrester APRN.CNP - 10/26/2024 10:28 AM EST Images from the original note were not included. Please select the following link to access the [facility] Your Guide to a Healthy . [email or web address] Please select the following link to access the [facility] Your Guide to a Healthy . [email or web address] MORNING SICKNESS IN by Nicki De La Paz M.D. for [employer] As you may already know, morning sickness can often be more appropriately called evening sickness or eilbg-kmxanw-rd-the-day sickness. While there are the gil few, most women (50-90%) experience some degree of nausea, some have vomiting, and a few develop a severe form of vomiting during called hyperemesis gravidarum. What causes the nausea and vomiting of ? We can't explain why some people feel fine and others are green for months. Even the same woman may feel vastly different in each . There is some relationship between nausea and the level of the hormone hCG. In twin pregnancies, and in other situations where the hCG is greater than expected, nausea and vomiting tend to be worse. In a destined for miscarriage, hCG levels tend to be low, and nausea is often less severe. This being said, a lack of nausea doesn't guarantee that the is destined for miscarriage. The fact that nausea and vomiting are often signs of a healthy can offer a silver lining in the dark cloud of miserable nausea. How long will the nausea last? Fortunately, for most women, nausea and vomiting are a first trimester event, peaking at week 9-10 and waning by week 14-16. When you are feeling bad the weeks can go by slowly but most moms do feel tremendously better by the middle of the . Whether morning sickness is a brief experience or lasts through most of the , there are treatments that can make the weeks or months more tolerable. What can you do about it? Diet: See what works for you. Try eating bland dry foods, and avoid fatty or spicy foods. It is okay to eat a less than perfectly balanced diet in the first trimester. Have your liquids separately from dry foods. Try sports drinks, water, clear juices, Ronn-aid, or non-caffeinated tea. Avoid carbonated beverages that fill up your stomach. Try eating lots of little meals. If you tend to feel sick when you first wake up, leave crackers next to the bed for a quick snack before rising. Keeping healthy snacks with you all day to nibble when you feel queasy can sometimes even prevent nausea from starting. vitamins and nausea: Pre- vitamins can sometimes worsen nausea in . While folate is necessary, especially early in the , it comes as a smaller pill that many people find more tolerable than the complete vitamin pill. Ask your practitioner if it is okay to temporarily replace vitamins and iron with just a folate pill if you find a significant worsening in the level of your nausea from the vitamins. Alternative therapies: Acupressure may be used to treat nausea in , and is not known to have any risks for the fetus. Wristbands (marketed for seasickness) that put pressure on an acupressure point at the wrist are often available at drugstores or travel stores. Prabhu root is used for nausea in many traditional cultures. Some women take fresh grated prabhu or prabhu tablets. It is possible that the pill form contains other ingredients or contaminants, so you may want to try fresh prabhu first. Medications: Emetrol is the only nausea medication approved for use in . It is available over the counter and is soothing to the stomach. A prescription medication called Bendectin was available in the 1970s-1979's and was shown to be safe in , but the company stopped marketing it in the [place] due to the costs of liability coverage. Bendectin contained 10 milligrams of vitamin B6 and 10 milligrams of Doxylamine. Two tablets were given at bedtime and a total of up to 4 tablets could be used in a 24-hour period. Interestingly, Unisom , which contains a higher dose (25 mg.) of the same medication, Doxylamine, is currently marketed as an sstj-kim-kavnxsf sleeping pill. Ask your practitioner if creating a vitamin B6/Doxylamine combination with lpub-zgv-jrfqlre medications would be safe for you. Prescription medications like Compazine and Phenergan can be used if the benefits outweigh possible risks, but these have not been clearly shown to be safe in . Zofran , an expensive anti-nausea medication often used to treat nausea from chemotherapy, can also be used. Can I throw up so much it harms the baby? The act of vomiting cannot hurt your fetus, which is protected inside the uterus. If you get dehydrated or develop a metabolic imbalance, this can be unhealthy. As long as you can keep down liquids, you and your baby will generally do all right. Eat when you feel able. If you are unable to keep anything down, or if you notice potential signs of dehydration such as lightheadedness, or concentrated and/or infrequent urination, call your practitioner. Some women need brief hospital admission for intravenous fluids and anti-nausea medications if their condition becomes severe. This severe form of nausea and vomiting is called Hyperemesis Gravidarum. As with many symptoms of , remind yourself that this, too, shall pass, and you'll have a wonderful baby to show for it! TREATMENT OPTIONS, SHORT VERSION: Frequent small meals Hydrate throughout day Sea-Bands wrist pressure point applicators Prabhu root (powdered, in capsules) 250mg four times a day Vitamin B6 25 mg tablet three times a day Also may be taken with half a tablet of Unisom three times a day (Doxylamine 12.5 mg) If severe (weight loss, dehydration), call us and come in for IV hydration and possible medication in the form of injections. Prescription medications such as Phenergan, Compazine, Reglan Psychotherapy Services at [facility] Call Behavioral Health Access Line at [phone] to schedule Individual psychotherapy In-person or virtual Wait time for first evaluation may be 12 or more weeks. Wait list spots may be available. Due to the high volume of patients this option is recommended if you are looking for short term acute symptom coping strategies. 9-014-6-RYJA6KBNT - [place] Maternal Mental Health Hotline If you are in suicidal crisis, please call or text 9-080-389-TALK ( ) or visit the National Suicide Prevention Lifeline website. m[facility]b.[facility].gov If you are in crisis, call 401 or go to your nearest Emergency Department Here are some links for wonderful Providers here in the community and surrounding areas. Do not hesitate to contact their offices, many are offering virtual visits during this time. Psychotherapy Services outside of [facility] Support International Online Provider Directory https://LocalView.MIOTtech/ - can assist in finding providers in your area that might be more extensive then the list below. [facility] [place], [place] [address] [place] [address] [address] [facility] [address] [place] [address] [facility] [address] [place], [place] [id number] Jd Thayer MD [address] [place] [address] [facility] [address], [address] [place] [address] [facility]iatric Services [address] [place] [address] [facility] Counseling Services Guillen / Vinicius [phone]/ [phone] Serina Lynne [address] [facility] [address] [facility] [phone] Aves of Counseling and Mediation Radha / Edin [phone] Behavioral health services of [facility] [address] [place] [address]/ [place] [facility] [place] [phone] AICHA Russell, MADELYN [facility] Workshops, telehealth and at home visits. [phone] [facility] counseling [place] 20 locations [place], [place], [place], [place], [place], [place], [place], [facility], [place], [place], [place], [place], [place], [place], [facility], [place], [place] ,[facility], [place], [place],[facility], [facility] [place], [place], [facility], [facility], [place] www.[facility] [phone] Psychotherapy resources outside of [facility] are listed below [facility] Go-Page Digital Media Psychotherapy Web: https://www.WolfGIS/ Support International Online Provider Directory https://Nanocomp Technologies/ [facility] https://Lifeline Biotechnologies/ Partners for Behavioral Health and Wellness Web: https://Urban Matrix/ Red's All natural for Effective Living Web: https://THE NOCKLIST.MIOTtech/ LifeStance Web: https://ZingCheckout.MIOTtech/location/s nguyen/[place]/ [facility] Web: https://www.[facility]gent [facility].or / [facility] Web: https://Talkpush.org/ Recovery Resources Mental health and substance abuse help Web: https://www.Sprout Routes.org & RESOURCES Support International Direct peer support and connection to professional resources Non-Emergency Helpline Phone: / Text: [phone] Web: https://www..net/ Online Provider Directory: https://Nanocomp Technologies/ Online Support Meetings: https://www..net/get-he lp/cci-jivlio-tuvvbns-meetings/ PANCHO Baby and Sanding Machine Operator Or Tender Services Web: https://www.Epoch/ [employer] Expert information on medication use during and Text: 672.169.4529 Web: https://Raptor Pharmaceuticals/ NATIONAL REGISTRY FOR PSYCHIATRIC MEDICATIONS Currently studying the safety of antidepressants, ADHD medications and atypical antipsychotics taken during TO PARTICIPATE CALL TOLL-FREE: Web: https://womenentalhealth.org/re search/pregnancyregistry/ Support Groups: [facility]- Follow on facebook Baby Bistro support group led by [facility] department Resilient Mamas - Support Group [facility].org The POEM support group [phone] Www.poemonline.org Follow on facebook - POALIE rodriguez chapter Online support meetings PSI https://www..net/get-he lp/zop-vmqich-nwknnon-meetings/ [facility] mommy and me virtual support group 11:30-1pm Support for mothers and new babies and toddlers [place] childbirth education: Childbirth @cc.org or call [phone] CRISIS: CRISIS HOTLINE [phone], 911 or go to the nearest . [facility] [phone] / [facility] [phone] https://www.[facility].org Crisis text line text the word HOME to [id number] [facility] [address] [facility] [address] www.Suneva MedicalserafinAPR Energy.MIOTtech Suzie Taylor clinical counseling [address] [address] www.Local Offer Networkhbritton.MIOTtech [phone] Holding space psychotherapy Maye Bundy LIGHT RAIL VEHICLE OPERATOR CHANNEL MACHINE OPERATOR-S [address] [facility] www.UsingMiles [phone]/ Barry [phone] They all offer virtual. All work with trauma Support groups Online support meetings PSI https://www..net/get-he lp/erc-xjirkv-fosjpld-meetings/ Here are the support groups they offer: Support of parents of 1 to 4 years old children POEM ( Outreach and Encouragement for Moms) offers free support for mothers experiencing depression, anxiety, and other mood and anxiety disorders. Masks are recommended but not required. No pre-registration required. Babies in arms welcome. meetings now take place on the and Friday of each month Location: [facility] [address] [place] [address] Room 122 (library room) 7-8:00 p.m. When you enter the taoism parking lot off of [address] the entrance door closest to our meeting room is on the front of the building toward the right. For those who are more comfortable with a virtual platform, POEM offers online support group options several days of the week. To register for an online group or to find out more about POEM, website at: https://a[place].org/get-help/[facility] centermajw-wfmqos-fbouxj/poem-services/ offer a confidential helpline: private Facebook group is called CARMINA Gallo Here are the groups they offer: Traumatic childbirth resources: Http://pattch.org/ https://www.sylviainGenius Engineering.MIOTtech/ Name Location (s) Phone # (s) Services Website [facility] Psychotherapy [address] [facility] [phone]; [address] [phone] In-Person GROUPS INDIVIDUAL THERAPY MATERNAL- MENTAL HEALTH MEDICATION MANAGEMENT PLAY AND ART THERAPY TELETHERAPY https://www.WolfGIS/s ervices/ [facility]ly RODRIGUEZ? [address] [place], [place] [address] ? [address] [place], [place] [id number] ? MARTIN [address] [place], [place] [address]? Grief Support Groups Individual Grief Counseling Spiritual Care Memorial Events https://[place].[facility].org/grief-services [facility] [address] [place], [place] [address]; ; Email: [email or web address] Women's Mental Health; Couples Counseling; Trauma (EMDR); Stress Management; Mood and Anxiety Related Disorders- and much more [email or web address].[email or web address]/ LifeStance Numerous as they have contract providers: access website to find specific providers near you Counseling including CBT and EMDR as well as many more modalities; Medication Management; Telehealth and In-Person https://Thy[employer]ope [employer]/ [facility] [address] [place], [place] [id number]; [phone] Personal, Family and Group Therapy; Psychological Testing and Diagnosis; Medication Management; Life and Career Coaching; Psychoanalysis; Literacy Testing; Yoga and Meditation https://Urban Matrix/ [facility] [address] [facility] [address], [place] [address] [address] ; [address] [place] [address], [address] [place] [address]; Office # for both sites: Individual and Couples Counseling [email or web address] OCD & Anxiety [facility] [address] [facility], [address], [place] [address]; Specialize in Cognitive-Behavioral Therapy (CBT) for the treatment of anxiety disorders across the lifespan. TELEHEALTH ONLY. [email or web address] better./faqs [facility] [address] [facility]th [place], [address] [place] [address] [facility] [place], [address] [place] [address] [facility] [place], [address] [place] [address] [place], [address], [id number] [place] [address] [place], [address] [place] [address] [place], [place], [id number] Transportation Services To minimize patient barriers, [facility] provides transportation services to patients who qualify. If you are unable to get to your appointment at any of our facilities, please let us know. Need help now? Stop by one of our walk-in clinics to establish behavioral health care. Counseling Indvidual, Group, Couples and Family Counseling and EMDR. Medication Management Case Management benefits applications housing assistance Substance abuse treatment Medication assisted treatment [email or web address] g/[email or web address]/ [facility] OFFICE AT [facility] [address] [place] [address] [facility] OFFICE [address] [place] [address] [facility] OFFICE [address] [place] [address] [facility] OFFICE (at [facility]) [address] [place] [address] [facility] [employer] [facility] S[facility]EN[facility] [address] [place] [address] [place] [facility] [employer] [address] [place] [address] Behavioral Health Urgent Care: [facility] Counseling Indvidual and Group Medication Management Case Management benefits applications housing assistance Substance abuse treatment Medication assisted treatment Employment Services/ Job Training [email or web address]/ [facility] [address] [place], [place] [address]: P: [phone] [address] [facility] [address], [place] [address] P: [phone] Our services include: Addiction Mental Health Treatment Assessment Psychiatry Medical Care Employment Housing Drug and Alcohol Prevention HIV/AIDS Prevention [email or web address]/ [facility] [place] [address] [place] [address] [place] [address] [place], [place] [address] [place] [address] [place] [address] [place] [address] [facility] [address] [place] [address] [place] [address] [place] [address] TMS Therapy/ Counseling Psychocological Testing for ADHD Medication Management In-Person/ Telemedicine [email or web address] [facility] Psychological services [address], [place] [address] Neuropsychological Testing For ADHD [email or web address]/ [facility] - Main Office [address] [place] [id number] [phone] Providing jysh-vg-xvmo and telehealth services. Adult Case Management Community Education and Prevention Employment Outpatient Treatment - Counseling & Psychotherapy Psychiatric Services [email or web address]/ [facility] [address] [address] [facility] [address] [place] [address] Virtual Appointments! Now offering safe and convenient virtual client appointments to anyone in [place]! Individual Therapy Couples/Relationship Therapy Trauma/EMDR Therapy Art Therapy Play Therapy It Security Engineer Support: Parenting Skills, Parent Child Interaction Therapy, Parent Infant Interaction Therapy Meditation Dietitian/Label Press Operator Services Group Therapy Yoga [email or web address]/ Jessica Espinoza [phone] Private Practice: Telehealth Only Specializes in EMDR for Trauma None documented in this encounter [facility] 08-23-2024 Telephone encounter Note It had been ordered for May so it , reordered. [facility] 08-23-2024 Miscellaneous Notes It had been ordered for May so it , reordered. Patient was expecting to have another Vit D lab test but has no orders. Can you place a Vit D blood lab test? Please advise. BRANDON Ibrahim documented in this encounter [facility] 08-23-2024 Telephone encounter Note Patient was expecting to have another Vit D lab test but has no orders. Can you place a Vit D blood lab test? Please advise. BRANDNO Ibrahim [facility] 07-24-2024 Instructions Shmuel Merlos APRN.RADIO PROGRAM DIRECTOR - 07/24/2024 10:38 AM EDT Images from the original note were not included. - If symptoms worsen - any fevers, chills, flank pain, nausea and vomiting - go to ED, these could be signs that the infection is moving into your kidneys. Urinary Problem-When to Seek Help? Symptoms of a urinary problem may lead to a bladder infection. Women are at greater risk of a urinary tract infection than are men. Most urinary tract infections in women are caused by bacteria and involve the lower urinary tract including the bladder and urethra. Symptoms: Pain or burning when passing urine, urgency, frequency, blood in the urine, difficult emptying your bladder, and lower abdominal fullness or pressure. Common Causes: Sexual intercourse, menopause, constipation, uncontrolled diabetes, dehydration and feminine products such as tampons, and kidney stones. When to Get Help: Seek medical attention if you get frequent bladder infections, urinary concerns such as leakage, blood in the urine or frequent need to urinate. You may be recommended to get help from a specialist, such as a urologist. Diagnosis & Treatment: Lab testing may include: urinalysis, and urine culture that can be collected in the lab or walk-in clinic. Most bladder infections can easily be treated. A physician, nurse practitioner or physician virtual office assistant may treat with a short course of an antibiotic. Delaying treatment can lead to worsening symptoms, like a kidney infection. Self-Care: Avoid a full bladder, bubble baths, bath oils, food and beverages that may irritate the bladder such as caffeine. Avoid spermicide foam and diaphragms Void before and after sexual intercourse Wipe front to back after using the bathroom. Stay hydrated Stop Smoking Follow-up Care: Follow up testing is not needed in healthy young women if symptoms resolve. documented in this encounter [facility] 07-24-2024 Note HNO ID: [id number] Author: SHMUEL MERLOS APRN.WILVER Service: ? Author Type: Nurse Practitioner Type: Progress Notes Filed: 07/24/2024 11:27 Note Text: Subjective The history is provided by the patient. No ecd was used. UTI This is a new problem. Episode onset: 6 days ago. The problem has been gradually worsening. The quality of the pain is described as burning. There has been no fever. She is Sexually active (states not concerned for STI's). There is No history of pyelonephritis. Associated symptoms include nausea (this am, states gets frequent nausea and unsure if related to UTI, currently being worked up by PCP) and frequency. Pertinent negatives include no chills, no vomiting, no hematuria, no urgency and no flank pain. She has tried acetaminophen for the symptoms. Her past medical history does not include kidney stones, urological procedure, recurrent UTIs or catheterization. Review of Systems Constitutional: Negative for chills, fatigue and fever. Respiratory: Negative for shortness of breath and wheezing. Gastrointestinal: Positive for abdominal pain (suprapubic) and nausea (this am, states gets frequent nausea and unsure if related to UTI, currently being worked up by PCP). Negative for diarrhea and vomiting. Genitourinary: Positive for dysuria and frequency. Negative for flank pain, hematuria and urgency. LMP - 07/08, currently trying to get , states ovulated early this month. Recent antibiotic use - Bactrim 2 months ago for UTI. vit/iron fum/folic ac ( 1 + 1 ORAL) Take by mouth. ergocalciferol 50,000 unit capsule (VITAMIN D2, DRISDOL) Take 1 capsule by mouth one time a week. Use as directed. albuterol HFA (VENTOLIN HFA) 90 mcg/actuation inhaler Inhale 2 Puffs as instructed every 4 hours as needed for wheezing/shortness of breath. ondansetron (ZOFRAN) 4 mg tablet Take 1 tablet by mouth every 8 hours as needed for nausea/vomiting. rizatriptan (MAXALT) 10 mg tablet Take 1 tablet (10 mg) by mouth as needed. May repeat in 2 hours if needed ALLERGIES Allergen Reactions Cats Itching Dust Itching, Other: See Comments Grass Pollen Rash Sneezing and Rash ACTIVE PROBLEM LIST Tbi (Traumatic Brain Injury) (Hcc) Depression Migraine With Aura, Not Intractable, Without Status Migrainosus Bmi 29.0-29.9,Adult Eating Disorder Vasovagal Syncope Gerd (Gastroesophageal Reflux Disease) Physical Exam Vitals and nursing note reviewed. Constitutional: General: She is not in acute distress. Appearance: Normal appearance. She is not toxic-appearing. Cardiovascular: Rate and Rhythm: Normal rate. Pulmonary: Effort: Pulmonary effort is normal. No accessory muscle usage, respiratory distress or retractions. Abdominal: Palpations: Abdomen is soft. Abdomen is not rigid. Tenderness: There is no abdominal tenderness. There is no right CVA tenderness or left CVA tenderness. Skin: General: Skin is warm and dry. Capillary Refill: Capillary refill takes less than 2 seconds. Neurological: Mental Status: She is alert and oriented to person, place, and time. BP 106/73 Pulse 81 Temp 36.6 ?C (97.8 ?F) Resp 18 Wt 83 kg (182 lb 15.7 oz) LMP 07/03/2023 (Exact Date) SpO2 100% BMI 27.82 kg/m2 ASSESSMENT/PLAN: Encounter Diagnosis ICD-10-CM 1. Acute cystitis with hematuria N30.01 URINE CULTURE UA DIP, URINE (POC) HCG QUAL UR B/O cephALEXin (KEFLEX) 500 mg capsule Results for orders placed or performed in visit on 07/24/24 UA DIP, URINE (POC) Result Value Ref Range GLUCOSE UA (POCT) Negative Negative mg/dL BILIRUBIN UA (POCT) Negative Negative KETONE UA (POCT) Negative Negative mg/dL SPECIFIC GRAVITY UA (POCT) >=1.030 1.005 - 1.030 HEMOGLOBIN/BLOOD UA (POCT) Trace-intact (A) Negative PH UA (POCT) 7.0 4.5 - 8.0 PROTEIN UA (POCT) Trace (A) Negative mg/dL UROBILINOGEN UA (POCT) 0.2 Normal E.U./dL NITRITE UA (POCT) Negative Negative LEUKOCYTES UA (POCT) Small (A) Negative COLOR UA (POCT) Dark yellow CLARITY UA (POCT) Cloudy UA DIP,URINE HCG (POC) Result Value Ref Range Urine hCG (POCT) Negative Negative Leasing Professional (POCT) Internal QC OK - URINE CULTURE - sent to lab, will call if any changes need to be made. - Push fluids - Tylenol or Motrin prn - If symptoms worsen - any fevers, chills, flank pain, nausea or vomiting - go to ED, these could be signs that the infection is moving into your kidneys. - See patient instructions for further recommendations. - Pt education along with discharge instructions given to pt - Discussed Red Flag signs and when to go to ER. - Pt agreeable with plan and verbalizes understanding. - Follow up with PCP if symptoms worsen or do not improve in the next 2-3 days. Shmuel Merlos APRN.[facility] 07-24-2024 History of Present illness Narrative Subjective The history is provided by the patient. No ecd was used. UTI This is a new problem. Episode onset: 6 days ago. The problem has been gradually worsening. The quality of the pain is described as burning. There has been no fever. She is Sexually active (states not concerned for STI's). There is No history of pyelonephritis. Associated symptoms include nausea (this am, states gets frequent nausea and unsure if related to UTI, currently being worked up by PCP) and frequency. Pertinent negatives include no chills, no vomiting, no hematuria, no urgency and no flank pain. She has tried acetaminophen for the symptoms. Her past medical history does not include kidney stones, urological procedure, recurrent UTIs or catheterization. Review of Systems Constitutional: Negative for chills, fatigue and fever. Respiratory: Negative for shortness of breath and wheezing. Gastrointestinal: Positive for abdominal pain (suprapubic) and nausea (this am, states gets frequent nausea and unsure if related to UTI, currently being worked up by PCP). Negative for diarrhea and vomiting. Genitourinary: Positive for dysuria and frequency. Negative for flank pain, hematuria and urgency. LMP - 07/08, currently trying to get , states ovulated early this month. Recent antibiotic use - Bactrim 2 months ago for UTI. vit/iron fum/folic ac ( 1 + 1 ORAL) Take by mouth. ergocalciferol 50,000 unit capsule (VITAMIN D2, DRISDOL) Take 1 capsule by mouth one time a week. Use as directed. albuterol HFA (VENTOLIN HFA) 90 mcg/actuation inhaler Inhale 2 Puffs as instructed every 4 hours as needed for wheezing/shortness of breath. ondansetron (ZOFRAN) 4 mg tablet Take 1 tablet by mouth every 8 hours as needed for nausea/vomiting. rizatriptan (MAXALT) 10 mg tablet Take 1 tablet (10 mg) by mouth as needed. May repeat in 2 hours if needed ALLERGIES Allergen Reactions Cats Itching Dust Itching, Other: See Comments Grass Pollen Rash Sneezing and Rash ACTIVE PROBLEM LIST Tbi (Traumatic Brain Injury) (Hcc) Depression Migraine With Aura, Not Intractable, Without Status Migrainosus Bmi 29.0-29.9,Adult Eating Disorder Vasovagal Syncope Gerd (Gastroesophageal Reflux Disease) Physical Exam Vitals and nursing note reviewed. Constitutional: General: She is not in acute distress. Appearance: Normal appearance. She is not toxic-appearing. Cardiovascular: Rate and Rhythm: Normal rate. Pulmonary: Effort: Pulmonary effort is normal. No accessory muscle usage, respiratory distress or retractions. Abdominal: Palpations: Abdomen is soft. Abdomen is not rigid. Tenderness: There is no abdominal tenderness. There is no right CVA tenderness or left CVA tenderness. Skin: General: Skin is warm and dry. Capillary Refill: Capillary refill takes less than 2 seconds. Neurological: Mental Status: She is alert and oriented to person, place, and time. BP 106/73 Pulse 81 Temp 36.6 C (97.8 F) Resp 18 Wt 83 kg (182 lb 15.7 oz) LMP 07/03/2023 (Exact Date) SpO2 100% BMI 27.82 kg/m2 ASSESSMENT/PLAN: Encounter Diagnosis ICD-10-CM 1. Acute cystitis with hematuria N30.01 URINE CULTURE UA DIP, URINE (POC) HCG QUAL UR B/O cephALEXin (KEFLEX) 500 mg capsule Results for orders placed or performed in visit on 10/12/24 UA DIP, URINE (POC) Result Value Ref Range GLUCOSE UA (POCT) Negative Negative mg/dL BILIRUBIN UA (POCT) Negative Negative KETONE UA (POCT) Negative Negative mg/dL SPECIFIC GRAVITY UA (POCT) >=1.030 1.005 - 1.030 HEMOGLOBIN/BLOOD UA (POCT) Trace-intact (A) Negative PH UA (POCT) 7.0 4.5 - 8.0 PROTEIN UA (POCT) Trace (A) Negative mg/dL UROBILINOGEN UA (POCT) 0.2 Normal E.U./dL NITRITE UA (POCT) Negative Negative LEUKOCYTES UA (POCT) Small (A) Negative COLOR UA (POCT) Dark yellow CLARITY UA (POCT) Cloudy UA DIP,URINE HCG (POC) Result Value Ref Range Urine hCG (POCT) Negative Negative Leasing Professional (POCT) Internal QC OK - URINE CULTURE - sent to lab, will call if any changes need to be made. - Push fluids - Tylenol or Motrin prn - If symptoms worsen - any fevers, chills, flank pain, nausea or vomiting - go to ED, these could be signs that the infection is moving into your kidneys. - See patient instructions for further recommendations. - Pt education along with discharge instructions given to pt - Discussed Red Flag signs and when to go to ER. - Pt agreeable with plan and verbalizes understanding. - Follow up with PCP if symptoms worsen or do not improve in the next 2-3 days. Shmuel Merlos APRN.RADIO PROGRAM DIRECTOR documented in this encounter [facility] 05-16-2024 Instructions Elvira Carr PA-C - 05/16/2024 9:08 AM EDT ASSESSMENT/PLAN: 1. UTI symptoms - 2. Dysuria - - UA - URINE CULTURE - SULFAMETHOXAZOLE 800 MG-TRIMETHOPRIM 160 MG TABLET Urine culture sent to the lab. Will contact in 2-3 days with results. Increase fluids, rest. Tylenol or Motrin as needed for pain or fever. May use Cranberry juice or cranberry pills. Use OTC Azo as directed. Avoid constipation. Maintain regular bowel movements. May use OTC Miralax, Senna, or Ducolax. Practice good personal hygiene. Always wipe from front to back. Wear cotton underwear. Bacteria grows better in moist places. Cotton does not trap moisture. After intercourse, urinate as soon as possible. This will help flush out any bacteria that may have gone into the urinary tract. Change sanitary pads and tampons frequently during menstruation. Empty your bladder completely as soon as you feel the urge, or at least every three hours. Take entire course of antibiotics. If you get vaginal yeast infections while on antibiotics, use OTC yeast cream treatments as directed Call PCP if sx worsen or no better in 2-3 days. If symptoms worsen, or new symptoms develop go to ER. If you develop fever, chills, worsening back pain, worsening abdominal pain, or new symptoms- see your PCP immediately or go to ER. Follow up as needed. Barriers to Learning: None. Barriers to Learning: Age. Here with a parent. The patient is instructed to return or seek emergency treatment if symptoms become worse or with any acute change in condition. The patient verbalizes understanding and is in agreement with plan of care. Elvira Carr PA-C documented in this encounter [facility] 05-16-2024 History of Present illness Narrative 05/16/2024 Patient presents with: UTI: Symptoms started 3 days ago pain and odor, and today pain when emptying. SUBJECTIVE: This is a 19 year old that is here today for possible UTI symptoms. The patient complains of dysuria, urine odor, urinary urgency, and urinary frequency x 3 days. She is currently on her menses. She denies fever, chills, abominal pain, lower abdominal pressure, bladder spasms, back pain, or n/v. The patient denies any discharge, lesions, odor, change in sexual partners, or concern for STIs. Dysuria pain: yes out of 10 with 10 being the worst pain. The lower abdominal pain is 0 out of 10 with 10 being the worst pain. The back/flank pain is 0 out of 10 with 10 being the worst pain. Self-treatment:. none The severity is mild and the symptoms are not improving. The patient has not had similar symptoms in the last 3 months. The patient has not had an antibiotic in the last 3 months. LMP:. On her menses currently Reviewed meds, OTCs and supplements. Meds reviewed. Allergies and medications reviewed. Reviewed allergies, medications, social history, and past medical history. Barriers to learning: none. PAST MEDICAL HISTORY No date: Depression No date: Migraines 2020: TBI (traumatic brain injury) ([facility]) ALLERGIES Cats, Dust, and Grass Pollen MEDICATIONS Current Outpatient Medications Medication Sig ergocalciferol 50,000 unit capsule (VITAMIN D2, DRISDOL) Take 1 capsule by mouth one time a week. Use as directed. albuterol HFA (VENTOLIN HFA) 90 mcg/actuation inhaler Inhale 2 Puffs as instructed every 4 hours as needed for wheezing/shortness of breath. ondansetron (ZOFRAN) 4 mg tablet Take 1 tablet by mouth every 8 hours as needed for nausea/vomiting. rizatriptan (MAXALT) 10 mg tablet Take 1 tablet (10 mg) by mouth as needed. May repeat in 2 hours if needed No current facility-administered medications for this visit. Medications and allergies reviewed by this provider. SOCIAL HISTORY Social History Tobacco Use Smoking status: Never Smokeless tobacco: Never Vaping Use Vaping Use: Never used Substance Use Topics Alcohol use: Never Drug use: Never REVIEW OF SYSTEMS ROS: constitutional-neg, heent-neg, heart-neg, respiratory-neg, GI-neg, -concern for UTI, skin-neg, lymph-neg, neuro-neg, psych-neg- All systems neg except as noted above in HPI. OBJECTIVE: BP 117/70 Pulse 101 Temp 36.3 C (97.3 F) Wt 88.6 kg (195 lb 5.2 oz) LMP 07/03/2023 (Exact Date) SpO2 98% BMI 29.70 kg/m . Vital signs reviewed by this provider. Physical Exam Vitals reviewed. Constitutional: General: She is not in acute distress. Appearance: Normal appearance. She is well-developed and normal weight. She is not ill-appearing, toxic-appearing or diaphoretic. Cardiovascular: Rate and Rhythm: Normal rate and regular rhythm. Heart sounds: Normal heart sounds. Pulmonary: Effort: Pulmonary effort is normal. Breath sounds: Normal breath sounds and air entry. Abdominal: General: Abdomen is flat. Bowel sounds are normal. Palpations: Abdomen is soft. Tenderness: There is no abdominal tenderness. There is no right CVA tenderness, left CVA tenderness, guarding or rebound. Neurological: Mental Status: She is alert. Psychiatric: Behavior: Behavior is cooperative. On her menses currently Latest Ref Rng 05/16/2024 GLUCOSE UA (POCT) Negative mg/dL Negative BILIRUBIN UA (POCT) Negative Negative KETONE UA (POCT) Negative mg/dL Negative SPECIFIC GRAVITY UA (POCT) 1.005 - 1.030 1.020 HEMOGLOBIN/BLOOD UA (POCT) Negative Trace-lysed ! PH UA (POCT) 4.5 - 8.0 7.5 PROTEIN UA (POCT) Negative mg/dL 30 ! UROBILINOGEN UA (POCT) Normal E.U./dL 0.2 NITRITE UA (POCT) Negative Negative LEUKOCYTES UA (POCT) Negative Small ! COLOR UA (POCT) Dark yellow CLARITY UA (POCT) Cloudy ASSESSMENT/PLAN: 1. UTI symptoms - ICD9: 788.99, ICD10: R39.9 (primary diagnosis) 2. Dysuria - ICD9: 788.1, ICD10: R30.0 - UA: . On her menses currently - URINE CULTURE - SULFAMETHOXAZOLE 800 MG-TRIMETHOPRIM 160 MG TABLET Urine culture sent to the lab. Will contact in 2-3 days with results. Increase fluids, rest. Tylenol or Motrin as needed for pain or fever. May use Cranberry juice or cranberry pills. Use OTC Azo as directed. Avoid constipation. Maintain regular bowel movements. May use OTC Miralax, Senna, or Ducolax. Practice good personal hygiene. Always wipe from front to back. Wear cotton underwear. Bacteria grows better in moist places. Cotton does not trap moisture. After intercourse, urinate as soon as possible. This will help flush out any bacteria that may have gone into the urinary tract. Change sanitary pads and tampons frequently during menstruation. Empty your bladder completely as soon as you feel the urge, or at least every three hours. Take entire course of antibiotics. If you get vaginal yeast infections while on antibiotics, use OTC yeast cream treatments as directed Call PCP if sx worsen or no better in 2-3 days. If symptoms worsen, or new symptoms develop go to ER. If you develop fever, chills, worsening back pain, worsening abdominal pain, or new symptoms- see your PCP immediately or go to ER. Follow up as needed. Barriers to Learning: None. Barriers to Learning: Age. Here with a parent. The patient is instructed to return or seek emergency treatment if symptoms become worse or with any acute change in condition. The patient verbalizes understanding and is in agreement with plan of care. Elvira Carr PA-C Medical Decision Making: Problems: Moderate: Acute illness with systemic symptoms Data: Unique test(s) ordered: 2 Risk: Low: Low risk from testing/treatment Moderate: Drug management Medical Decision Making Level: 4 - Moderate I spent a total of 20 minutes on the date of the service which included preparing to see the patient, [id number] patient care, completing clinical documentation, performing a medically appropriate examination, counseling and educating the patient/family/caregiver, ordering medications, tests, or procedures, and communicating results to the patient/family/caregiver. documented in this encounter [facility] 02-23-2024 Instructions Natali Michel APRN.CNP - 02/23/2024 5:06 PM EDT Follow-up: [facility] [place] Occupational therapist in [place], [place] Located in: [facility] Address: [address] [place] [address] - over the counter Tylenol or ibuprofen as needed for pain - limit time on phone or computer -follow-up with occupational health documented in this encounter [facility] 02-23-2024 History of Present illness Narrative Images from the original note were not included. [facility] PATIENT NAME: Howard Saldivar DATE OF : 2005 TODAYS' DATE: 02/23/2024 Subjective: Ms. Saldivar is a 19 year old female Patient presents with: Neck Pain: Patient squeezed her neck and she had to pull away because the patient wanted her to feel what sge feels. 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 CHIEF COMPLAINT: This is an [place] [employer] ([facility]) injury claim for injury to the neck. Howard Saldivar presents to my office for first report of injury (FROI). 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 Pt states later she started to feel some pain in her neck along with a headache. Pt denies blurred vision, numbness and tingling down her arms, nausea and vomiting at this time. Previous injuries or musculoskeletal complaints: Patient reports having no known previous injury of this area prior to this [employer] ([facility]) injury claim. CURRENT STATUS OF INJURY: Current symptoms: She notes the pain to be aching. She notes aggravating factors of movement. She notes alleviating factors of rest. Patient does not note any associated mechanical symptoms. Current work status: Patient is currently at work with the following restrictions: Light work (maximum lifting 20lbs, carying 10 lbs, frequent walking & standing, occassional seated pushing/pulling) REVIEW OF SYMPTOMS: Constitutional: patient denies any recent fever or significant change in weight Gastrointestinal: patient denies any current abdominal discomfort Musculoskeletal: as noted in the HPI Neurologic: patient denies any peripheral numbness or radiation of pain SOCIAL HISTORY: Tobacco Use: Never Review of Systems: Review of Systems Eyes: Negative for visual disturbance. Musculoskeletal: Positive for neck pain. Neurological: Positive for headaches. Negative for dizziness, weakness and numbness. Allergies: Allergies: Cats Itching Dust Itching, Other: See Comments Grass Pollen Rash Comment:Sneezing and Rash Past Medical History: PAST MEDICAL HISTORY Diagnosis Date Depression Migraines TBI (traumatic brain injury) ([facility]) 2020 Past Surgical History: PAST SURGICAL HISTORY Procedure Laterality Date TONSILLECTOMY & ADENOIDECTOMY <AGE 10 Family History: FAMILY HISTORY Problem Relation Age of Onset Diabetes Father Glaucoma Father Stroke Maternal Grandmother other (Pulmonary embolism) Maternal Grandmother other (heart murmur) Maternal Grandmother other (a fib) Maternal Uncle Cataract No Family History Detached Retina No Family History Macular Degen No Family History Blindness No Family History Amblyopia No Family History Strabismus No Family History Tobacco History: Tobacco Use: Never Medications: Current Outpatient Medications Medication Sig Dispense Refill ergocalciferol 50,000 unit capsule (VITAMIN D2, DRISDOL) Take 1 capsule by mouth one time a week. Use as directed. 12 capsule 0 albuterol HFA (VENTOLIN HFA) 90 mcg/actuation inhaler Inhale 2 Puffs as instructed every 4 hours as needed for wheezing/shortness of breath. 1 Each 2 ondansetron (ZOFRAN) 4 mg tablet Take 1 tablet by mouth every 8 hours as needed for nausea/vomiting. 30 tablet 0 rizatriptan (MAXALT) 10 mg tablet Take 1 tablet (10 mg) by mouth as needed. May repeat in 2 hours if needed 9 tablet 11 No current facility-administered medications for this visit. Vitals: BP 115/74 Pulse 80 Temp 36.4 C (97.6 F) Wt 87.9 kg (193 lb 10.8 oz) LMP 07/03/2023 (Exact Date) SpO2 100% BMI 29.45 kg/m Physical Exam: Physical Exam Vitals and nursing note reviewed. Constitutional: General: She is not in acute distress. HENT: Head: Normocephalic. Eyes: Extraocular Movements: Right eye: Normal extraocular motion. Left eye: Normal extraocular motion. Comments: -bilateral pupils equal and reactive to light Cardiovascular: Rate and Rhythm: Normal rate and regular rhythm. Pulmonary: Effort: Pulmonary effort is normal. Breath sounds: Normal breath sounds. Neurological: Mental Status: She is alert. Psychiatric: Behavior: Behavior is cooperative. ASSESSMENT/PLAN: 1. Headache, unspecified headache type - ICD9: 784.0, ICD10: R51.9 (primary diagnosis) -OTC Tylenol or ibuprofen as needed for pain - limit time on phone or computer 2. Neck pain - ICD9: 723.1, ICD10: M54.2 -see above 3. Injury of neck, initial encounter - ICD9: 959.09, ICD10: S19.9XXA -see above -red flags discussed with pt if needs to go to ED -pt education along with discharge instructions given to pt -pt agreeable with plan -follow-up with [facility] [place] -work note given Natali Michel APRN.CNP 02/23/24 5:04 PM documented in this encounter [facility] 01-22-2024 Miscellaneous Notes Ordered The following approved medication requests have been transmitted electronically. Requested Prescriptions Signed Prescriptions Disp Refills albuterol HFA (VENTOLIN HFA) 90 mcg/actuation inhaler 1 Each 2 Sig: Inhale 2 Puffs as instructed every 4 hours as needed for wheezing/shortness of breath. Kim Ward DO Addended by: KIM WARD on: 01/22/2024 07:37 PM Modules accepted: Orders Patient returning call. She did go to [facility] when referred to ED. She was diagnosed with influenza and asthmatic bronchitis. She feels fine now. She was prescribed Albuterol / Ventolin. She is wondering if she can get refills for that from Dr. Ward. If she can she would like it to go to [facility] in [place]. Vm left to call and speak with the nurse Patient calling in with co cp and difficulty breathing. Instructed pt not to drive. Pt states she will have family member take her now. Pt seen in express care yesterday for cough and sore throat, negative for strep. Pt co wheezing. Pt afebrile. . Nursing Triage assessment completed with protocol recommendations for disposition Go to ED now(or PCP Triage) Care advice reviewed with understanding. Patient advised to contact office or seek urgent evaluation if symptoms persist or worsen. Soo Amador RN December 30, 2023 8:57 AM Pt having family member take her to er now Reason for Disposition Difficulty breathing Answer Assessment - Initial Assessment Questions 1. LOCATION: Center chest 2. RADIATION: Pt denies 3. ONSET: Last night 4. PATTERN: Intermittent with cough 5. DURATION: A few minutes 6. SEVERITY: 10/22 7. CARDIAC RISK FACTORS: Pt denies 8. PULMONARY RISK FACTORS: asthma 9. CAUSE: cough 10. OTHER SYMPTOMS: Cough, wheezing, difficulty breathing 11. : Pt denies Protocols used: Chest [id number]-[id number] documented in this encounter [facility] 12-29-2023 History of Present illness Narrative SUBJECTIVE: Howard Saldivar is a 18 year old female. Who presents today with congestion sore throat and cough for the last 2 days. She has not had a fever. She has taken otc cough medication. She has been exposed to others who are sick. She would like strep testing today. HPI PAST MEDICAL HISTORY Diagnosis Date Depression Migraines TBI (traumatic brain injury) ([facility]) 2019 FAMILY HISTORY Problem Relation Age of Onset Diabetes Father Glaucoma Father Stroke Maternal Grandmother other (Pulmonary embolism) Maternal Grandmother other (heart murmur) Maternal Grandmother other (a fib) Maternal Uncle Cataract No Family History Detached Retina No Family History Macular Degen No Family History Blindness No Family History Amblyopia No Family History Strabismus No Family History Social History Tobacco Use Smoking status: Never Smokeless tobacco: Never Vaping Use Vaping Use: Never used Substance Use Topics Alcohol use: Never Drug use: Never ALLERGIES Allergen Reactions Cats Itching Dust Itching, Other: See Comments Grass Pollen Rash Sneezing and Rash Current Outpatient Medications Medication Sig Dispense Refill ergocalciferol 50,000 unit capsule (VITAMIN D2, DRISDOL) Take 1 capsule by mouth one time a week. Use as directed. 12 capsule 0 ondansetron (ZOFRAN) 4 mg tablet Take 1 tablet by mouth every 8 hours as needed for nausea/vomiting. 30 tablet 0 rizatriptan (MAXALT) 10 mg tablet Take 1 tablet (10 mg) by mouth as needed. May repeat in 2 hours if needed 9 tablet 11 No current facility-administered medications for this visit. OBJECTIVE: BP 108/62 Pulse 110 Temp 37.2 C (99 F) Resp 18 Wt 88 kg (194 lb 0.1 oz) LMP 07/03/2023 (Exact Date) SpO2 99% BMI 29.50 kg/m ROS all other systems reviewed and are negative Constitutional: Well developed, well nourished, A&O X3. ENT: Head is atraumatic, airway patent, mucosal membranes moist, pink, no exudate, no peritonsillar abscess Neck: full ROM, no meningeal signs Cardiac: heart tones regular rate and rhythm Respiratory: lung CTA respiration even and unlabored : no CVA tenderness MS: moves all extremities, no deformities noted Neuro: GCS 15 no focal deficits Skin: warm and dry with out rash, lesion or ecchymosis on exposed skin Psych: alert appropriate, speech clear Diagnostic testing: Strep testing Differential Diagnosis Strep Throat, Viral Pharyngitis, Peritonsillar Abscess, meningitis, bacterial pneumonia, sinusitis, allergic rhinitis, and bronchitis to name a few. MDM: Patient presented to the [facility] today for strep testing. A strep test was obtained and was NEGATIVE. Howard Saldivar will be treated for viral pharyngitis. As this is not a bacterial infection, antibiotics are not indicated. At this time I do not suspect a serious underlying emergent process. I considered, but think unlikely, dangerous causes of this patient s symptoms to include Peritonsillar abscess and meningitis. Patient is nontoxic appearing and not in need of emergent medical intervention. Vital signs were evaluated and found to be within normal limits. We have discussed over the counter medications to use for their symptoms. They may take Motrin and Tylenol for pain, body aches and fever. They will follow-up with their family doctor in the next 2-3 days. If symptoms worsen they will go straight to the emergency department for further evaluation and treatment. They voiced understanding of the plan of care and are in agreement. ASSESSMENT/PLAN: 1. Sore throat - ICD9: 462, ICD10: J02.9 (primary diagnosis) - RAPID STREP TEST B/O 2. Viral pharyngitis - ICD9: 462, ICD10: J02.9 Linh Zambrano APRN.RADIO PROGRAM DIRECTOR documented in this encounter [facility] 11-27-2023 History of Present illness Narrative 1. Myopia, bilateral 2. Regular astigmatism of both eyes Finalized spec rx Ordering cl trials Continue artificial tears- consider adding gel nightly Follow-up as needed Kelsie Beard, OD November 27, 2023 4:16 PM documented in this encounter [facility] 10-22-2023 Telephone encounter Note Agree with eval [facility] 10-22-2023 Miscellaneous Notes Agree with eval Pt calling in with C/O left index finger injury Pt cut her cuticles last week and over cut. This scabbed over and was healing A few days later became sore, red, warm. Denies Drainage Denies fever Finger is slightly red near sore Last tetanus in 2014 Pt denies any other symptoms Per protocol advised Pt to be seen in EC within 4 hours. Pt agreeable and will be seen in in EC today. Advised to call back with any change in symptoms Reason for Disposition [1] Looks infected AND [2] large red area (> 2 inches or 5 cm) or streak Answer Assessment - Initial Assessment Questions 1. APPEARANCE of INJURY: Red and pink 2. SIZE: 1/4 inch 3. BLEEDING: Denies 4. LOCATION: Left index finger 5. ONSET: 1 week ago 6. MECHANISM: Cuticle 7. TETANUS: Unknown 8. : Unknown. Protocols used: Cuts and Prqdnctoqul-LAJVX-QJ LM for patient to call back [facility]supporting Kim Ward DO) 2 hours ago (7:12 AM) [facility] Dr. Ward I cut my cuticle on my left index finger roughy over a week ago. It had reopened about of time since then and it has not gotten better and it looks to be infect. I have noticed this week the redness has gotten worse and it is painful and swollen. Will this just go away on its own or does it need antibiotics to go away? Thank you, Howard documented in this encounter [facility] 10-22-2023 Telephone encounter Note Pt calling in with C/O left index finger injury Pt cut her cuticles last week and over cut. This scabbed over and was healing A few days later became sore, red, warm. Denies Drainage Denies fever Finger is slightly red near sore Last tetanus in 2014 Pt denies any other symptoms Per protocol advised Pt to be seen in EC within 4 hours. Pt agreeable and will be seen in in EC today. Advised to call back with any change in symptoms Reason for Disposition [1] Looks infected AND [2] large red area (> 2 inches or 5 cm) or streak Answer Assessment - Initial Assessment Questions 1. APPEARANCE of INJURY: Red and pink 2. SIZE: 1/4 inch 3. BLEEDING: Denies 4. LOCATION: Left index finger 5. ONSET: 1 week ago 6. MECHANISM: Cuticle 7. TETANUS: Unknown 8. : Unknown. Protocols used: Cuts and Razonxoaxcs-LWLOP-AT [facility] 10-22-2023 Telephone encounter Note LM for patient to call back [facility] (supporting Kim Ward DO) 2 hours ago (7:12 AM) [facility] Dr. Ward I cut my cuticle on my left index finger roughy over a week ago. It had reopened about of time since then and it has not gotten better and it looks to be infect. I have noticed this week the redness has gotten worse and it is painful and swollen. Will this just go away on its own or does it need antibiotics to go away? Thank you, Howard [facility] 09-18-2023 Miscellaneous Notes Day # 5 since COVID19 symptom onset. Caregiver approved to return to work tomorrow for COVID19 absence per survey. Leadership notified. Doc flowsheets updated. Khari Murdock RN documented in this encounter [facility] 09-15-2023 Miscellaneous Notes Images from the original note were not included. Positive Caregiver COVID Call Patient Name: Howard Saldivar Primary Care Physician: Kim Ward DO Service Date: 09/15/2023 Service Time: 8:17 PM Positive Caregiver COVID Call Howard Saldivar Lab Results Component Value Date COVID19 Detected (A) 09/15/2023 Covid Immunization Dates Overdue - Covid-19 Vaccine ( season) Overdue since 06/13/2023 02/10/2021 Imm Admin: COVID-19 original vaccine, age 12+ yr, monovalent (PFIZER-BIONTECH - PURPLE TOP) 01/20/2021 Imm Admin: COVID-19 original vaccine, age 12+ yr, monovalent (PFIZER-BIONTECH - PURPLE TOP) COVID Symptom Onset: 09-13-23 email for electronic communication: [email or web address] -Email sent to leadership: [email or web address] - Employee ID: [email or web address] Plan - Discussed positive COVID19 result. Reinforced self-isolation, avoiding public areas and gatherings. Mask while home with family and not isolated alone - Advised no work until cleared by Occupational Health. Clearance will be provided through RTW COVID19 questionnaire sent through [employer] message, followed by clearance email sent to manager study (emails will be sent Friday through Friday) - Advised to contact PCP regarding positive test result/symptom management - Advised to seek evaluation by primary care provider, [facility], [facility] Online, or ED with worsening or escalating symptoms. - Provided with caregiver follow-up email to preferred e-mail - Advised to call the COVID Hotline with outstanding questions/comments/concerns. Signature: Derik Rahman Patient Name: Howard Saldivar Date: 09/15/2023 Time: 8:17 PM Pager/Contact: [phone] documented in this encounter [facility] 09-15-2023 History of Present illness Narrative This note was created using [employer]. Subjective Howard Saldivar is a 18 year old female. HPI Presents with a chief complaint of nasal congestion, sore throat, cough over the past 2 days. No fever. She has had a headache. No diarrhea or vomiting. Cough just started this morning. She has tried some Zyrtec muhg-ahz-xdkuish and tried her migraine medicine. She denies any sick contacts. She denies doing a home COVID test. Chest pain or shortness of breath. Review of Systems Constitutional: Negative. HENT: Positive for congestion, ear pain, postnasal drip and sore throat. Respiratory: Positive for cough. Negative for shortness of breath and wheezing. Cardiovascular: Negative. Gastrointestinal: Negative. Genitourinary: Negative. Musculoskeletal: Negative. All other systems reviewed and are negative. PAST MEDICAL HISTORY Diagnosis Date Depression Migraines TBI (traumatic brain injury) ([facility]) 2019 Current Outpatient Medications Medication Sig Dispense Refill ergocalciferol 50,000 unit capsule (VITAMIN D2, DRISDOL) Take 1 capsule by mouth one time a week. Use as directed. 12 capsule 0 ondansetron (ZOFRAN) 4 mg tablet Take 1 tablet by mouth every 8 hours as needed for nausea/vomiting. 30 tablet 0 rizatriptan (MAXALT) 10 mg tablet Take 1 tablet (10 mg) by mouth as needed. May repeat in 2 hours if needed 9 tablet 11 No current facility-administered medications for this visit. PAST SURGICAL HISTORY Procedure Laterality Date TONSILLECTOMY & ADENOIDECTOMY <AGE 10 FAMILY HISTORY Problem Relation Age of Onset Diabetes Father Glaucoma Father Stroke Maternal Grandmother other (Pulmonary embolism) Maternal Grandmother other (heart murmur) Maternal Grandmother other (a fib) Maternal Uncle Cataract No Family History Detached Retina No Family History Macular Degen No Family History Blindness No Family History Amblyopia No Family History Strabismus No Family History Social History Tobacco Use Smoking status: Never Smokeless tobacco: Never Vaping Use Vaping Use: Never used Substance Use Topics Alcohol use: Never Drug use: Never Objective BP 108/68 Pulse 116 Temp 37.3 C (99.2 F) Resp 16 Wt 87.1 kg (192 lb) LMP 07/03/2023 (Exact Date) SpO2 100% BMI 29.19 kg/m Physical Exam Vitals reviewed. Constitutional: Appearance: Normal appearance. HENT: Head: Normocephalic and atraumatic. Right Ear: Tympanic membrane, ear canal and external ear normal. Left Ear: Tympanic membrane, ear canal and external ear normal. Nose: Congestion present. Mouth/Throat: Mouth: Mucous membranes are moist. Pharynx: Oropharynx is clear. No oropharyngeal exudate or posterior oropharyngeal erythema. Cardiovascular: Rate and Rhythm: Normal rate and regular rhythm. Heart sounds: Normal heart sounds. Pulmonary: Effort: Pulmonary effort is normal. Breath sounds: Normal breath sounds. Musculoskeletal: Cervical back: Neck supple. Skin: General: Skin is warm and dry. Findings: No rash. Neurological: Mental Status: She is alert. Assessment and Plan ASSESSMENT/PLAN: 1. Viral URI with cough - ICD9: 465.9, ICD10: J06.9 - Discussed viral etiology and rationale for treatment. - Symptomatic treatment with prn analgesia - Supportive care with fluids and rest - The patient may also use OTC cough and cold meds as needed. - Follow up in 3-5 days if symptoms persist or sooner if worsening of symptoms - COVID & INFLUENZA A/B & RSV NAAT, ROUTINE Lynn Medina PA-C documented in this encounter [facility] 09-15-2023 Instructions Lynn Medina PA-C - 09/15/2023 9:07 AM EST May continue zyrtec, consider adding decongestant like sudafed or phenylephrine If not better in 1 week or have fever after 5 days be seen again. documented in this encounter [facility] 07-17-2023 History of Present illness Narrative UNIVERSAL PROTOCOL / SAFETY CHECKLIST Procedure to be performed: [facility]: TILT Sign in Communication: Completed Time Out: Team Confirms the Correct Patient, Correct Procedure, Correct Site and Site Marking, Correct Position (if applicable). Time: 917 STAFF: Jacques Hu DO Affirmation of Time Out: N/A Sign Out Discussion: Completed Priyank Posey RN Orders placed 07/15/2023 by Allergies: Cats, Dust, and Grass Pollen Test done in consult with Dr. Hu. Procedure Start Time: 921 Height 172.7 cm Weight 83.4 kg Patient fasting for 4 hours: Yes Support stockings taken off for procedure: Yes Pain Assessment: Patient states none Comfort Measures: Added pillow for head/shoulders and LIGHTS DIMMED Pacemaker: No IV Placement by: Priyank Posey RN Baseline: BP 99/65 HR 69 Pre-Max Tilt : 70 degrees 30 min BP 74/45 HR 81 Max Tilt: 70 degrees 31 min BP 55/28 HR 69 Note:Test was stopped early at the 31 min into 70 degree HUT due to decrease in blood pressure. See Final Report for Diagnosis. IV discontinued at 1040 by Priyank Posey RN. Staff involved in procedure: Priyank Posey RN; Mone Cao RN Procedure Finish Time: 1040 documented in this encounter [facility] 07-11-2023 Miscellaneous Notes Patient is scheduled Reordered Howard is asking if Dr. Ward can put an order in for the tilt table that . She is concerned because she said the initial request for reorder was sent to the cable supervisor who initially ordered it and they have not replaced it. documented in this encounter [facility] 07-10-2023 Miscellaneous Notes Phoned and spoke to the patient regarding the tilt order that has . Will await Dr. Hu's return to see if he wants to see the the patient in OPD before reordering the tilt. The patient acknowledges understanding. documented in this encounter [facility] 06-13-2023 Instructions Kim Ward DO - 06/13/2023 4:43 PM EDT The [employer]i Program [email or web address] Protocol for exercise: [email or web address] Salt tablets Nuun tablet Nooma documented in this encounter [facility] 06-13-2023 History of Present illness Narrative [facility] Today's Date: June 13, 2023 Patient presents with: ED Follow-up HPI: Howard Saldivar is an 18 year old female who presents for: Seen in [place] ED 06/07/23 for syncopal episodes She had 2 episodes of passing out within a 15 min period. Was very tired after that. Told blood work looked good. Had EKG. Had eaten cheerios for breakfast and then nothing to eat or drink after that and occurred in the afternoon and she was outside in the heat. Has history of syncope in the past and seen at syncope clinic Tilt table test was recommended and now she has scheduled tilt table test Yesterday as she was driving home she felt presyncopal. Has been getting lightheaded about once every 2 weeks for about Binges and then will starve herself for several days and calorie counting Often eats only 700-1,000 calories per day Also has depression She is currently in taoism group 12 step program Started wearing compression stockings and may be helping a little Has been drinking a lot of water, drinking 80-100 oz of fluids in the day Has been bruising more easily recently -arms and legs Her maternal grandma has history of blood clots, no specific diagnosis. Was having more severe cramping with last period. Darker period blood. Normally has heavier periods. Takes puppy on runs and walks Can be triggered in symptoms from cardio exercise PHYSICAL EXAM BP 116/78 Pulse 86 Temp 36.7 C (98 F) (Oral) Ht 172.7 cm (5' 8) Wt 82.1 kg (181 lb) LMP 06/06/2023 (Approximate) SpO2 100% BMI 27.52 kg/m Gen: Patient is pleasant, alert, and in no acute distress CV: Regular rate and rhythm, no murmurs Pulm: Clear to auscultation bilaterally, no wheezes, crackles Neuro: no involuntary movements Skin: Warm, dry, no visible rashes ASSESSMENT/PLAN: 1. Syncope, unspecified syncope type - ICD9: 780.2, ICD10: R55 2. Eating disorder, unspecified type - ICD9: 307.50, ICD10: F50.9 Suspected POTS, She was seen at [facility] and has upcoming tilt table test next month. She does have underlying eating disorder which likely contributes to syncope. Recommend treatment through [facility]. Discussed compression stockings, salt tablets, fluids, electrolyte beverages, Ruby protocol for exercise. Will check labs including iron as she typically has heavy periods. - CBC + DIFF - IRON + TIBC - FERRITIN BLD - COMP METABOLIC PANEL I spent a total of 30 minutes on the date of the service which included preparing to see the patient, [id number] patient care, completing clinical documentation, performing a medically appropriate examination, counseling and educating the patient/family/caregiver, and ordering medications, tests, or procedures. Kim Ward DO documented in this encounter [facility] 06-09-2023 Miscellaneous Notes See TE 06/09/23. Rox Sales RN documented in this encounter [facility] 02-24-2023 History of Present illness Narrative Howard Saldivar is a 18 year old female who presents for problem visit irregular menses for 6 month(s). HPI: pt states that since getting the Nexplanon her cycles are irregular and she is having more cramping. She states that off of control her periods are very regular with little cramping. She would like to have the Nexplanon removed. Nexplanon inserted Aug 2022 by PCP. OB History No obstetric history on file. Conference Service Coordinator History LMP: 01/10/2023 (Approximate), Having periods Age at Menarche: Age at First : Age at Menopause: Conference Service Coordinator History Comments: Sexual Activity: Not Asked; No partner data on record; Not asked Contraception: No contraception data on record PAST MEDICAL HISTORY Diagnosis Date Depression Migraines TBI (traumatic brain injury) ([facility]) 2019 PAST SURGICAL HISTORY Procedure Laterality Date TONSILLECTOMY & ADENOIDECTOMY <AGE 10 FAMILY HISTORY Problem Relation Age of Onset Diabetes Father Glaucoma Father Stroke Maternal Grandmother other (Pulmonary embolism) Maternal Grandmother other (heart murmur) Maternal Grandmother other (a fib) Maternal Uncle Cataract No Family History Detached Retina No Family History Macular Degen No Family History Blindness No Family History Amblyopia No Family History Strabismus No Family History Social History Tobacco Use Smoking status: Never Smokeless tobacco: Never Vaping Use Vaping Use: Never used Substance Use Topics Alcohol use: Never Drug use: Never Current Outpatient Medications Medication Sig rizatriptan (MAXALT) 10 mg tablet Take 10 mg by mouth as needed. May repeat in 2 hours if needed ondansetron (ZOFRAN) 4 mg tablet Take by mouth every 8 hours as needed for nausea/vomiting. No current facility-administered medications for this visit. Allergies As of Date: 02/24/2023 Allergen Noted Reaction CATS 01/06/2023 Itching DUST 01/06/2023 Itching and Other: See Comments GRASS POLLEN 03/14/2021 Rash Fully Assessed 02/24/2023 REVIEW OF SYSTEMS Expanded ROS: N/A Allergies and current medication updated:Yes EXAM: Wt 180 lb 6.4 oz (81.8kg) LMP 01/10/2023 GENERAL: pleasant, female in no apparent distress HEENT: Normocephalic, atraumatic, mucus membranes moist, and no lesions CHEST: Normal inspiratory effort NEURO: alert and oriented x3,exam grossly non-focal EXTREMITIES: normal ASSESSMENT/PLAN: 1. Irregular menstrual cycle - ICD9: 626.4, ICD10: N92.6 - NEXPLANON REMOVAL - pt to schedule appt for removal Ladonna Laura APRN.CNP Medical Decision Making: Problems: Low: Acute, uncomplicated illness or injury Risk: Low: Low risk from testing/treatment Medical Decision Making Level: 3 - Low documented in this encounter [facility] 01-08-2023 History of Present illness Narrative Vitreous floaters of right eye (-)claudine sign/holes/tears/breaks 360 Mac OCT: normal OU The signs and symptoms of a retinal detachment were reviewed including flashes, increased floaters, or a curtain or veil coming over the vision. The patient was advised to call immediately with the development of those symptoms Continue w/ annual exam or sooner prn I have confirmed and edited as necessary the relevant ophthalmic history, ROS, and the exam findings as obtained by others. I have seen and examined this patient. I have discussed the case and the management of this patient's care with the resident or fellow as appropriate. I also have reviewed and agree with the assessment and plan as stated above and agree with all of its relevant components. Patient reports understanding. Herminia Yee OD documented in this encounter [facility] 12-12-2022 History of Present illness Narrative Howard Saldivar is a 17 year old female who presents with complaint of sore throat moderate, nasal congestion, and ear pain right for 4 days. She denies fever, headache, rash, cough, dyspnea, wheezing, trouble swallowing, nausea, vomiting, diarrhea, shortness of breath, and difficulty drinking fluids . No treatment tried so far. PAST MEDICAL HISTORY Diagnosis Date Depression Migraines TBI (traumatic brain injury) ([facility]) 2019 ALLERGIES: Patient has no known allergies. Current Outpatient Medications Medication Sig rizatriptan (MAXALT) 10 mg tablet Take 10 mg by mouth as needed. May repeat in 2 hours if needed ondansetron (ZOFRAN) 4 mg tablet Take by mouth every 8 hours as needed for nausea/vomiting. amoxicillin (AMOXIL) 875 mg tablet Take 1 tablet by mouth twice daily for 10 days. No current facility-administered medications for this visit. Social History Tobacco Use Smoking status: Never Smokeless tobacco: Never Vaping Use Vaping Use: Never used Substance Use Topics Alcohol use: Never Drug use: Never PHYSICAL EXAM: BP 110/72 Pulse 83 Temp 36.8 C (98.3 F) (Left Tympanic) Resp 18 Wt 81.6 kg (180 lb) LMP 08/08/2022 (Approximate) SpO2 100% BMI 28.19 kg/m General appearance: healthy, alert, cooperative, pleasant, in no acute distress, nontoxic Head: Normocephalic Eyes: conjunctiva/corneas normal, EOMI Ears: R TM - erythematous, bulging, L TM - clear with good landmarks, nl light reflex Nose: clear Oropharynx: moist without lesions, moderate erythema, no exudate Neck: supple and no adenopathy Heart: regular rate and rhythm, without murmur Lungs: clear to auscultation, without rales or wheeze, good air exchange Assessment/Plan Acute Otitis Media - Will begin treatment with Amoxicillin for 10 days - The patient should also be given OTC cough and cold meds as needed for the first 5-7 days of treatment. - Supportive care with plenty of fluids, rest, and analgesia prn. - Follow up in one week if symptoms persist or worsen. José Miguel Bunch APRN.CNP documented in this encounter [facility] 12-12-2022 Instructions José Miguel Bunch APRN.CNP - 12/12/2022 5:34 PM EST OTITIS MEDIA GENERAL INFORMATION: Otitis media is an infection of the middle ear. The middle ear sits behind the eardrum. This infection may be caused by a virus or bacteria and often follows a cold. Children often have repeat ear infections. Otitis media is not contagious. INSTRUCTIONS: 1. An antibiotic has been prescribed. It should be taken exactly as prescribed. Do not stop the medicine even if the symptoms go away. 2. Zwsy-iks-jvicjws pain medication may be taken or other pain medication as prescribed by the doctor. 3. Nothing should be placed in the ear unless instructed by your doctor. 4. The patient may return to school/daycare or work when the temperature is normal (98.6 F or 37 C). 5. The patient should not swim while the ear is infected. CONTACT YOUR DOCTOR IF YOU OR YOUR CHILD: 1. Does not feel better within 36 hours. 2. Develops a temperature over 102E F (39E C). 3. Starts vomiting or has diarrhea. 4. Develops drainage from the affected ear. 5. Has any new problem that may be related to the medicine prescribed. RETURN TO THE ED IF: 1. You or your child has a severe headache or pain around the ear. 2. You or your child notice swelling around the ear. 3. You or your child has a seizure (convulsion), twitching of the facial muscles, or passes out. 4. You or your child is dizzy, has a stiff neck, or cannot walk or talk normally. 5. Your child becomes more irritable or listless (not interested in his or her surroundings, does not get soothed by you holding him or her). documented in this encounter [facility] 10-23-2022 Miscellaneous Notes Pt calling in to request change of pharmacy Med pended FARZANA-08/16/22 NOV-NA documented in this encounter [facility] 10-08-2022 History of Present illness Narrative EARMOLD IMPRESSIONS Name: Howard Saldivar [facility]#: [id number] Date of Service: 10/08/2022 Date of : 2005 Age: [age] year old Howard is requesting ear plugs to use while sleeping. Discussed custom vs generic plugs. Decided to trial Phonak Serenity Choice Sleep non-custom plugs fist, and if not comfortable/sufficient will order custom instead. Earmold impressions were taken of both ears. Otoscopic inspection revealed clear ear canal/s before and after procedures. Impressions will be held in Audiology lab cabinet in case patient would like to order custom plugs. Will contact when ready for pickup. Howard was taken to the financial counselors to pay $14 for the Phonak Serenity Choice Sleep plugs. Gary Montana, [facility] Clinical and Hearing Implant Hide Or Skin Buffer documented in this encounter [facility] 09-04-2022 History of Present illness Narrative EVENT MONITOR DISPOSABLE PATCH INSTRUCTIONS Patient Name: Howard Saldivar [facility] Number: [id number] Skin prepped and cleansed with alcohol Patch secured to prepped area Monitor Activated Serial #: [id number] Patient Instructed: Prescribed order timeframe Bathing guidelines Usage of event button and diary documentation Return of monitor at the end of prescribed order Call with problems [phone] or [phone] ext. [phone] Patient expresses a good understanding of instructions Susi Mckinney documented in this encounter [facility] 08-16-2022 Instructions Kim Ward DO - 08/16/2022 10:54 AM EDT [email or web address] documented in this encounter [facility] 08-16-2022 History of Present illness Narrative August 16, 2022 Howard Saldivar is a 17 year old female who presents for Nexplanon insertion. Patient's last menstrual period was 08/08/2022 (approximate). test: negative BP 118/70 Pulse 89 Temp 36.9 C (98.5 F) (Oral) Ht 170.2 cm (5' 7) Wt 84.4 kg (186 lb 1.9 oz) LMP 08/08/2022 (Approximate) SpO2 100% BMI 29.15 kg/m General appearance: healthy, alert, cooperative, pleasant, in no acute distress, well dressed, well groomed Skin: warm and dry, no gross lesions Neuro: Alert and appropriate, no involuntary movements TECHNIQUE: Risks, benefits, alternatives were discussed and informed consent signed. Patient placed in supine position with left) bent at the elbow and placed over the head. Skin cleansed with betadine. 2 mL of 1% lidocaine injected subQ along insertion site. Nexplanon tyrell inserted under sterile technique. The tyrell was palpable under the skin after insertion and the notch visible on the trochar after insertion. Steristrips and sterile pressure dressing applied. Pt tolerated the procedure well. Discussed signs and symptoms of infection and post procedural care. Kim Ward DO documented in this encounter [facility] 05-06-2022 Instructions Kim Ward DO - 05/06/2022 6:26 PM EDT Ruby protocol for exercise Compression stockings Fluids with electrolytes such as Nuun, Nooma, Coconut water Increase salt or add salt tablets documented in this encounter [facility] 05-06-2022 History of Present illness Narrative [facility] CC: Physical Howard Saldivar is a 17 year old female who presents for PHE/well woman exam Trying to lose weight Nutrition: reports healthy diet, previously vegetarian Exercise: working out more Depression was seeing psychiatry and doing counseling but not currently History of brain injury in high school after falling down the stairs due to lightheadedness Cymbalta helps with headaches Thought to possibly have POTS Gets elevated heart rates Has history of syncope Migraines without aura Maxalt PRN Periods: regular Sexual activity with boyfriend Control: condoms, previously OCPs but caused worse headaches History of STIs: Denies Vaginal concerns: Denies unusual vaginal discharge, abnormal bleeding, vaginal pain Social History: Smoking Denies EtOH Denies Recreational drug use Denies PHYSICAL EXAM BP 124/68 Pulse 94 Temp 37.1 C (98.7 F) Ht 170.2 cm (5' 7) Wt 86.7 kg (191 lb 0.6 oz) LMP 05/06/2022 (Exact Date) SpO2 98% BMI 29.92 kg/m Gen: Patient is pleasant, alert, and in no acute distress HEENT: HELADIO, EOMI, TMs normal bilaterally Neck: Supple, no cervical lymphadenopathy. Thyroid non-tender, no thyromegaly CV: Regular rate and rhythm, no murmurs Pulm: Clear to auscultation bilaterally, no wheezes, crackles Abd: Soft, non-tender, non-distended. No masses or organomegaly. Neuro: no involuntary movements Extrem: No edema Skin: Warm, dry, no visible rashes ASSESSMENT/PLAN: Well female exam without gynecological exam - ICD9: V70.0, ICD10: Z00.00 - Counseled on healthy diet and regular exercise - Follow up for annual exam in one year - COMP METABOLIC PANEL 1. Syncope, unspecified syncope type - ICD9: 780.2, ICD10: R55 (primary diagnosis) Concern for POTS. Discussed compression socks, increasing fluids with electrolytes, considering salt tablets. Ruby protocol for exercise. - CONSULT TO [facility] 2. Traumatic brain injury, without loss of consciousness, subsequent encounter - ICD9: V58.89, ICD10: S06.9X0D Cymbalta helps with chronic headaches 3. Depression, unspecified depression type - ICD9: 311, ICD10: F32.A Stable 4. Migraine with aura, not intractable, without status migrainosus - ICD9: 346.00, ICD10: G43.109 Maxalt PRN 5. BMI 29.0-29.9,adult - ICD9: V85.25, ICD10: Z68.29 Continue working on healthy diet and exericise 6. Screening for STD (sexually transmitted disease) - ICD9: V74.5, ICD10: Z11.3 - GC/CHLAMYDIA AMPLIF, URINE 7. Special screening examination for viral disease - ICD9: V73.99, ICD10: Z11.59 - HEP C AB IA W/CONF SCRN 8. Screening for HIV (human immunodeficiency virus) - ICD9: V73.89, ICD10: Z11.4 - HIV 1 2 COMBO(AG/AB),WITH REFLEX TO DIFFERENTIATION 9. Encounter for immunization - ICD9: V03.89, ICD10: Z23 - HUMAN PAPILLOMAVIRUS 9-VALENT HPV IM Kim Ward DO documented in this encounter [facility] Evaluation note Diagnosis Syncope, unspecified syncope type- Primary Traumatic brain injury, without loss of consciousness, subsequent encounter Depression, unspecified depression type Migraine with aura, not intractable, without status migrainosus BMI 29.0-29.9,adult Body Mass Index 29.0-29.9, adult Screening for STD (sexually transmitted disease) Screening examination for venereal disease Special screening examination for viral disease Special screening examination for unspecified viral disease Screening for HIV (human immunodeficiency virus) Special screening examination for other specified viral diseases Well female exam without gynecological exam Routine general medical examination at a health care facility Encounter for immunization Need for other specified prophylactic vaccination against single bacterial disease [facility] S[facility]ope, unspecified syncope type- Primary [facility] Diagnosis Encounter for initial prescription of Nexplanon- [facility] Diagnosis Lightheadedness- Primary Dizziness and giddiness Vasovagal syncope Syncope and collapse Palpitations [facility] Diagnosis Lightheadedness- Primary Dizziness and giddiness [facility] Diagnosis Abnormal auditory perception, unspecified laterality- Primary [facility]* Diagnosis Acute otitis media, right- Primary Unspecified otitis media [facility]* Diagnosis Vitreous floaters of right eye- Primary [facility]* Diagnosis Irregular menstrual cycle- Primary [facility] noteNo assessment information availableW[facility] Work Phone: Evaluation note* Diagnosis Syncope, unspecified syncope type- Primary Eating disorder, unspecified type [facility] Diagnosis Lightheadedness- Primary Dizziness and giddiness [facility] Diagnosis Syncope, unspecified syncope type- Primary [facility] [place] [facility] Diagnosis Viral URI with cough- Primary Acute upper respiratory infections of unspecified site [facility] [place] [facility]* Diagnosis Myopia, bilateral- Primary Myopia Regular astigmatism of both eyes Regular astigmatism documented in this encounter [facility] note* Diagnosis Sore throat- Primary Acute pharyngitis Viral pharyngitis Acute pharyngitis documented in this encounter [facility] note* Diagnosis Vitamin D deficiency Unspecified vitamin D deficiency documented [facility] [place] [facility]* Diagnosis Headache, unspecified headache type- Primary Neck pain Cervicalgia Injury of neck, initial encounter documented [facility] this [facility] [place] [facility]* Diagnosis Unspecified injury of neck, initial encounter- Primary documented in this [facility] [place] [facility]* Diagnosis UTI symptoms- Primary Other symptoms involving urinary system Dysuria documented in this encounter [facility] note* Diagnosis Acute cystitis with hematuria- Primary Acute cystitis documented in this encounter [facility] note* Diagnosis Vitamin D deficiency- Primary Unspecified vitamin D deficiency [facility] [place] [facility] Diagnosis Encounter for supervision of high risk in first trimester, antepartum- Primary 8 weeks gestation of state, incidental with uncertain dates in first trimester History of eating disorder Personal history of other mental disorder Asthma affecting in first trimester Migraine with aura, not intractable, without status migrainosus Nausea and vomiting in Unspecified vomiting of , unspecified as to episode of care Constipation during in first trimester documented in this encounter [facility] note* Diagnosis 12 weeks gestation of - Primary state, incidental Encounter for supervision of high risk in first trimester, antepartum [facility] [place] [facility] Diagnosis Encounter for screening for malformation using ultrasound- Primary Encounter for supervision of high risk in first trimester, antepartum 12 weeks gestation of state, incidental History of eating disorder Personal history of other mental disorder documented [facility] this [facility] [place] [facility]* Diagnosis Mild intermittent asthma with acute exacerbation- Primary Unspecified asthma, with exacerbation 15 weeks gestation of state, incidental [facility] [place] [facility] Diagnosis Supervision of high risk in second trimester- Primary Unspecified high-risk 16 weeks gestation of state, incidental documented [facility] this [facility] [place] [facility]* Diagnosis Vaginal spotting- Primary Other specified noninflammatory disorder of vagina Vaginal discharge Leukorrhea, not specified as infective 16 weeks gestation of state, incidental documented [facility] this encounter [facility] [place] [facility]* Diagnosis Encounter for medical examination to establish care- Primary Exercise-induced asthma Exercise induced bronchospasm 17 weeks gestation of state, incidental Migraine with aura, not intractable, without status migrainosus Gastroesophageal reflux disease, unspecified whether esophagitis present documented in this encounter [facility] note* Diagnosis Encounter for anatomic survey (HCC)- Primary Encounter for anatomic survey 20 weeks gestation of ([facility]) state, incidental documented in this encounter [facility] note* Diagnosis 20 weeks gestation of (HCC)- Primary state, incidental Supervision of high risk in second trimester ([facility]) Unspecified high-risk Asthma affecting in first trimester ([facility]) documented in this encounter [facility] note* Diagnosis Supervision of high risk in second trimester (HCC)- Primary Unspecified high-risk Screening for diabetes mellitus Encounter for supervision of normal first in third trimester ([facility]) Supervision of normal first 24 weeks gestation of ([facility]) state, incidental * Assessment & Plan Note - Nicky Connell MD - 02/16/2025 9:11 AM EDT Associated Problem(s): Supervision of high risk in second trimester (HCC) documented in this encounter [facility] note* Diagnosis Supervision of high risk in second trimester (HCC)- Primary Unspecified high-risk Screening for diabetes mellitus Encounter for supervision of normal first in third trimester (HCC) Supervision of normal first 24 weeks gestation of ([facility]) state, incidental Sore throat- Primary Acute pharyngitis Acute URI Acute upper respiratory infections of unspecified site documented in this encounter [facility] note* Diagnosis Supervision of high risk in second trimester (HCC)- Primary Unspecified high-risk Screening for diabetes mellitus Encounter for supervision of normal first in third trimester (HCC) Supervision of normal first 24 weeks gestation of ([facility]) state, incidental Acute non-recurrent pansinusitis- Primary [facility] [place] [facility] Diagnosis Supervision of high risk in second trimester ([facility])- Primary Unspecified high-risk Screening for diabetes mellitus Encounter for supervision of normal first in third trimester ([facility]) Supervision of normal first 24 weeks gestation of ([facility]) state, incidental Supervision of high risk in second trimester ([facility])- Primary Unspecified high-risk 28 weeks gestation of ([facility]) state, incidental Asthma affecting in first trimester ([facility]) History of depression Personal history of other mental disorder History of eating disorder Personal history of other mental disorder [facility] [place] [facility] Diagnosis Supervision of high risk in second trimester ([facility])- Primary Unspecified high-risk Screening for diabetes mellitus Encounter for supervision of normal first in third trimester ([facility]) Supervision of normal first 24 weeks gestation of ([facility]) state, incidental Supervision of high risk in second trimester ([facility])- Primary Unspecified high-risk History of depression Personal history of other mental disorder History of eating disorder Personal history of other mental disorder Exercise-induced asthma ([facility]) Exercise induced bronchospasm Migraine with aura, not intractable, without status migrainosus 29 weeks gestation of ([facility]) state, incidental [facility] [place] [facility] Diagnosis Supervision of high risk in second trimester ([facility])- Primary Unspecified high-risk Screening for diabetes mellitus Encounter for supervision of normal first in third trimester ([facility]) Supervision of normal first 24 weeks gestation of ([facility]) state, incidental Supervision of high risk in third trimester ([facility])- Primary Unspecified high-risk 32 weeks gestation of ([facility]) state, incidental History of depression Personal history of other mental disorder Exercise-induced asthma ([facility]) Exercise induced bronchospasm Uterine size-date discrepancy, third trimester ([facility]) [facility] [place] [facility] Diagnosis Supervision of high risk in second trimester ([facility])- Primary Unspecified high-risk Screening for diabetes mellitus Encounter for supervision of normal first in third trimester ([facility]) Supervision of normal first 24 weeks gestation of ([facility]) state, incidental Supervision of high risk in third trimester (HCC)- Primary Unspecified high-risk 33 weeks gestation of ([facility]) state, incidental Abdominal trauma, initial encounter documented in this encounter [facility] note* Diagnosis Supervision of high risk in second trimester (HCC)- Primary Unspecified high-risk Screening for diabetes mellitus Encounter for supervision of normal first in third trimester ([facility]) Supervision of normal first 24 weeks gestation of ([facility]) state, incidental 34 weeks gestation of ([facility])- Primary state, incidental Supervision of high risk in third trimester ([facility]) Unspecified high-risk * Assessment & Plan Note - Tati Bowles MD - 04/28/2025 11:45 AM EDTAssociated Problem(s): Supervision of high risk in third trimester ([facility]) Orders: URINE OB DIP B/O documented in this encounter [facility] note* Diagnosis Supervision of high risk in second trimester (HCC)- Primary Unspecified high-risk Screening for diabetes mellitus Encounter for supervision of normal first in third trimester ([facility]) Supervision of normal first 24 weeks gestation of ([facility]) state, incidental Encounter for ultrasound to check growth ([facility])- Primary Encounter for routine screening for malformation using ultrasonics Uterine size-date discrepancy, third trimester ([facility]) 34 weeks gestation of ([facility]) state, incidental 34 weeks gestation of ([facility])- Primary state, incidental Supervision of high risk in third trimester ([facility]) Unspecified high-risk documented in this encounter [facility] note* Diagnosis Supervision of high risk in second trimester (HCC)- Primary Unspecified high-risk Screening for diabetes mellitus Encounter for supervision of normal first in third trimester ([facility]) Supervision of normal first 24 weeks gestation of ([facility]) state, incidental Supervision of high risk in third trimester ([facility])- Primary Unspecified high-risk Exercise-induced asthma ([facility]) Exercise induced bronchospasm Uterine size-date discrepancy, third trimester ([facility]) 33 weeks gestation of ([facility]) state, incidental 34 weeks gestation of ([facility])- Primary state, incidental Supervision of high risk in third trimester ([facility]) Unspecified high-risk documented in this encounter [facility] note* Diagnosis Supervision of high risk in second trimester (HCC)- Primary Unspecified high-risk Screening for diabetes mellitus Encounter for supervision of normal first in third trimester ([facility]) Supervision of normal first 24 weeks gestation of (HCC) state, incidental 34 weeks gestation of (HCC)- Primary state, incidental Supervision of high risk in third trimester (HCC) Unspecified high-risk Supervision of high risk in third trimester (HCC)- Primary Unspecified high-risk 35 weeks gestation of ([facility]) state, incidental documented in this encounter [facility] note* Diagnosis Supervision of high risk in second trimester (HCC)- Primary Unspecified high-risk Screening for diabetes mellitus Encounter for supervision of normal first in third trimester ([facility]) Supervision of normal first 24 weeks gestation of ([facility]) state, incidental 34 weeks gestation of ([facility])- Primary state, incidental Supervision of high risk in third trimester ([facility]) Unspecified high-risk 38 weeks gestation of ([facility])- Primary state, incidental Supervision of high risk in third trimester ([facility]) Unspecified high-risk * Assessment & Plan Note - Tati Bowles MD - 05/24/2025 11:37 AM EDTAssociated Problem(s): Supervision of high risk in third trimester (HCC) Orders: URINE OB DIP B/O documented in this encounter [facility] note* Diagnosis Supervision of high risk in second trimester (HCC)- Primary Unspecified high-risk Screening for diabetes mellitus Encounter for supervision of normal first in third trimester ([facility]) Supervision of normal first 24 weeks gestation of ([facility]) state, incidental 34 weeks gestation of ([facility])- Primary state, incidental Supervision of high risk in third trimester (HCC) Unspecified high-risk 38 weeks gestation of ([facility])- Primary state, incidental Supervision of high risk in third trimester ([facility]) Unspecified high-risk Supervision of high risk in third trimester ([facility])- Primary Unspecified high-risk Uterine size-date discrepancy, third trimester (HCC) 39 weeks gestation of (HCC) state, incidental * Assessment & Plan Note - Nicky Connell MD - 06/01/2025 11:12 AM EDTAssociated Problem(s): Supervision of high risk in third trimester (HCC) Orders: URINE OB DIP B/O [facility] [place] [facility] Diagnosis Supervision of high risk in second trimester (HCC)- Primary Unspecified high-risk Screening for diabetes mellitus Encounter for supervision of normal first in third trimester ([facility]) Supervision of normal first 24 weeks gestation of (HCC) state, incidental 34 weeks gestation of (HCC)- Primary state, incidental Supervision of high risk in third trimester (HCC) Unspecified high-risk 38 weeks gestation of ([facility])- Primary state, incidental Supervision of high risk in third trimester (HCC) Unspecified high-risk Supervision of high risk in third trimester (HCC)- Primary Unspecified high-risk Uterine size-date discrepancy, third trimester (HCC) 39 weeks gestation of (HCC) state, incidental 39 weeks gestation of (HCC)- Primary state, incidental Supervision of high risk in third trimester (HCC) Unspecified high-risk Uterine size-date discrepancy, third trimester (HCC) documented in this encounter [facility] for referral (narrative)* Outpatient Procedure (Routine) - Authorized Specialty Diagnoses / Procedures Referred By Contac t [facility] Diagnoses Syncope, unspecified syncope type Procedures ECG COMPLETE ECG ROUTINE ECG W/LEAST 12 LDS W/I&R Jacques Hu DO [address] [place] [address] [facility] [address] [place] [address] Referral ID Status Reason Start Date Expiration Date Visits Requested Visits Authorized [id number] Authorized Auto-Generat ed Referral 06/04/2022 06/04/2023 1 1 [facility] for referral (narrative)* Outpatient Procedure (Routine) - Authorized Specialty Diagnoses / Procedures Referred By Yumikoac t Referred To Contact [facility] Diagnoses Irregular menstrual cycle Encounter for surveillance of implantable subdermal contraceptive Procedures NEXPLANON REMOVAL REMOVAL NON-BIODEGRADABLE DRUG DELIVERY IMPLANT ETONOGESTREL IMPLANT SYSTEM Ladonna Laura APRN.CNP [address] [place] [address] [address] Referral ID Status Reason Start Date Expiration Date Visits Requested Visits Authorized [id number] Authorized Auto-Generat ed Referral 02/24/2023 10/12/2023 1 1 [facility] for referral (narrative)* Diagnostic Procedure Only (Routine) - Pending Review Specialty Diagnoses / Procedures Referred By Damon t Referred To Contact [facility] Diagnoses Encounter for supervision of high risk in first trimester, antepartum 8 weeks gestation of with uncertain dates in first trimester History of eating disorder Procedures OBSTETRIC ULTRASOUND WHI US PREG UTERUS AFTER 1ST TRIMEST GESTATION Alli Forrester APRN.CNP [address] [place] [address] [address] Referral ID Status Reason Start Date Expiration Date Visits Requested Visits Authorized [id number] Pending Review Auto-Generat ed Referral 10/27/2024 10/27/2025 1 1 * Diagnostic Procedure Only (Routine) - Pending Review Specialty Diagnoses / Procedures Referred By Damon t Referred To Contact [facility] Diagnoses Encounter for supervision of high risk in first trimester, antepartum 8 weeks gestation of with uncertain dates in first trimester History of eating disorder Procedures OBSTETRIC ULTRASOUND WHI US PREG UTERUS AFTER 1ST TRIMEST GESTATION Alli Forrester APRN.CNP [address] [place] [address] [facility] [address] [place] [address] Referral ID Status Reason Start Date Expiration Date Visits Requested Visits Authorized [id number] Pending Review Auto-Generat ed Referral 10/27/2024 10/27/2025 [address] [facility] Summary Purpose Family History No Family History Records FoundNo Family History Records FoundNo Family History Records FoundNo Family History Records FoundNo Family History Records Found Advance Directives No Advanced Directives Records Found Advance Directive Response Recorded Date/ Time Living Will No June 07 2:18pm Power of Cabinet Assembler No June 07 023 2:18pm Advance Directive Response Recorded Date/ Time Living Will No December 30, 2023 10:43am Power of Cabinet Assembler No December 29 10:43am Reason for Referral Specialty Diagnoses / Procedures Referred By Damon allan Referred To Contact Diagnoses Syncope, unspecified syncope type Procedures CONSULT TO [facility]INIC OFFICE/OUTPATIENT [facility] 60-74 MINUTES Kim Ward DO [address] [place] [address] Referral ID Status Reason Start Date Expiration Date Visits Requested Visits Authorized [id number] Authorized PCP Requested Referral 05/06/2022 05/06/2023 1 1 Medications Administered Section Inactive Administered Medications - up to 3 most recent administrations Medication Order MAR Action Action Date Dose Rate Site etonogestrel subdermal implant 68 mg (NEXPLANON) 68 mg, SUBDERMAL, ONCE (UP TO 30 DAYS AMB), 1 dose, On Fri08/16/22 at 1130, Hazardous Potential Reproductive Risk Drug: Use appropriate PPE. Must be inserted subdermally in the upper arm by a trained healthcare provider. Given 08/16/2022 11:29 AM EDT 68 mg Arm, Left Inactive Administered Medications - up to 3 most recent administrations Medication Order MAR Action Action Date Dose Rate Site tropicamide 1 % 1 Drop (MYDRIACYL) 1 Drop, BOTH EYES, DIRECTED, Starting on Fri01/06/23 at 1500, Until Fri01/07/23 at 0229, Administer for dilation Given 01/06/2023 3:00 PM EDT 1 Drop Chief Complaint and Reason for Visit Chief Complaint SYNCOPE Chief Complaint SOB Health Concerns Infection Onset Date Last Indicated Resolved Time COVID-19 Confirmed 09/15/2023 09/15/2023 Additional Source Comments INFORMATION SOURCE (unrecogn ized section and content) DATE CREATED AUTHOR 11/24/2021 [facility] DATE CREATED AUTHOR AUTHOR'S ORGANIZ ATION 05/14/2022 [facility] DATE CREATED AUTHOR AUTHOR'S ORGANIZ ATION 02/26/2024 [facility] nt DATE CREATED AUTHOR AUTHOR'S ORGANIZ ATION 12/17/2024 [facility] DATE CREATED AUTHOR AUTHOR'S ORGANIZ ATION 06/05/2025 [facility] Source Comments (unrecognize d section and content) In the event this informatio n is protected by the Federal Confidentiality of Alcohol and Drug Abuse Patient Records regulations: The Federal rules restrict any use of the information to criminally investigate or prosecute any alcohol or drug abuse patient.[facility] Hospital[facility] the event this information is protected by the Federal Confidentiality of Alcohol and Drug Abuse Patient Records regulations: The Federal rules restrict any use of the information to criminally investigate or prosecute any alcohol or drug abuse patient.[facility] HospitalIn the event this information is protected by the Federal Confidentiality of Alcohol and Drug Abuse Patient Records regulations: The Federal rules restrict any use of the information to criminally investigate or prosecute any alcohol or drug abuse patient.[facility] HospitalIn the event this information is protected by the Federal Confidentiality of Alcohol and Drug Abuse Patient Records regulations: The Federal rules restrict any use of the information to criminally investigate or prosecute any alcohol or drug abuse patient.[facility] HospitalIn the event this information is protected by the Federal Confidentiality of Alcohol and Drug Abuse Patient Records regulations: The Federal rules restrict any use of the information to criminally investigate or prosecute any alcohol or drug abuse patient.[facility] HospitalIn the event this information is protected by the Federal Confidentiality of Alcohol and Drug Abuse Patient Records regulations: The Federal rules restrict any use of the information to criminally investigate or prosecute any alcohol or drug abuse patient.[facility] HospitalIn the event this information is protected by the Federal Confidentiality of Alcohol and Drug Abuse Patient Records regulations: The Federal rules restrict any use of the information to criminally investigate or prosecute any alcohol or drug abuse patient.[facility] HospitalIn the event this information is protected by the Federal Confidentiality of Alcohol and Drug Abuse Patient Records regulations: The Federal rules restrict any use of the information to criminally investigate or prosecute any alcohol or drug abuse patient.[facility] HospitalIn the event this information is protected by the Federal Confidentiality of Alcohol and Drug Abuse Patient Records regulations: The Federal rules restrict any use of the information to criminally investigate or prosecute any alcohol or drug abuse patient.[facility] HospitalIn the event this information is protected by the Federal Confidentiality of Alcohol and Drug Abuse Patient Records regulations: The Federal rules restrict any use of the information to criminally investigate or prosecute any alcohol or drug abuse patient.[facility] HospitalIn the event this information is protected by the Federal Confidentiality of Alcohol and Drug Abuse Patient Records regulations: The Federal rules restrict any use of the information to criminally investigate or prosecute any alcohol or drug abuse patient.[facility] HospitalIn the event this information is protected by the Federal Confidentiality of Alcohol and Drug Abuse Patient Records regulations: The Federal rules restrict any use of the information to criminally investigate or prosecute any alcohol or drug abuse patient.[facility] HospitalIn the event this information is protected by the Federal Confidentiality of Alcohol and Drug Abuse Patient Records regulations: The Federal rules restrict any use of the information to criminally investigate or prosecute any alcohol or drug abuse patient.[facility] HospitalIn the event this information is protected by the Federal Confidentiality of Alcohol and Drug Abuse Patient Records regulations: The Federal rules restrict any use of the information to criminally investigate or prosecute any alcohol or drug abuse patient.[facility] HospitalIn the event this information is protected by the Federal Confidentiality of Alcohol and Drug Abuse Patient Records regulations: The Federal rules restrict any use of the information to criminally investigate or prosecute any alcohol or drug abuse patient.[facility] HospitalIn the event this information is protected by the Federal Confidentiality of Alcohol and Drug Abuse Patient Records regulations: The Federal rules restrict any use of the information to criminally investigate or prosecute any alcohol or drug abuse patient.[facility] HospitalIn the event this information is protected by the Federal Confidentiality of Alcohol and Drug Abuse Patient Records regulations: The Federal rules restrict any use of the information to criminally investigate or prosecute any alcohol or drug abuse patient.[facility] HospitalIn the event this information is protected by the Federal Confidentiality of Alcohol and Drug Abuse Patient Records regulations: The Federal rules restrict any use of the information to criminally investigate or prosecute any alcohol or drug abuse patient.[facility] HospitalIn the event this information is protected by the Federal Confidentiality of Alcohol and Drug Abuse Patient Records regulations: The Federal rules restrict any use of the information to criminally investigate or prosecute any alcohol or drug abuse patient.[facility] HospitalIn the event this information is protected by the Federal Confidentiality of Alcohol and Drug Abuse Patient Records regulations: The Federal rules restrict any use of the information to criminally investigate or prosecute any alcohol or drug abuse patient.[facility] HospitalIn the event this information is protected by the Federal Confidentiality of Alcohol and Drug Abuse Patient Records regulations: The Federal rules restrict any use of the information to criminally investigate or prosecute any alcohol or drug abuse patient.[facility] HospitalIn the event this information is protected by the Federal Confidentiality of Alcohol and Drug Abuse Patient Records regulations: The Federal rules restrict any use of the information to criminally investigate or prosecute any alcohol or drug abuse patient.[facility] HospitalIn the event this information is protected by the Federal Confidentiality of Alcohol and Drug Abuse Patient Records regulations: The Federal rules restrict any use of the information to criminally investigate or prosecute any alcohol or drug abuse patient.[facility] HospitalIn the event this information is protected by the Federal Confidentiality of Alcohol and Drug Abuse Patient Records regulations: The Federal rules restrict any use of the information to criminally investigate or prosecute any alcohol or drug abuse patient.[facility] HospitalIn the event this information is protected by the Federal Confidentiality of Alcohol and Drug Abuse Patient Records regulations: The Federal rules restrict any use of the information to criminally investigate or prosecute any alcohol or drug abuse patient.[facility] HospitalIn the event this information is protected by the Federal Confidentiality of Alcohol and Drug Abuse Patient Records regulations: The Federal rules restrict any use of the information to criminally investigate or prosecute any alcohol or drug abuse patient.[facility] HospitalIn the event this information is protected by the Federal Confidentiality of Alcohol and Drug Abuse Patient Records regulations: The Federal rules restrict any use of the information to criminally investigate or prosecute any alcohol or drug abuse patient.[facility] HospitalIn the event this information is protected by the Federal Confidentiality of Alcohol and Drug Abuse Patient Records regulations: The Federal rules restrict any use of the information to criminally investigate or prosecute any alcohol or drug abuse patient.[facility] HospitalIn the event this information is protected by the Federal Confidentiality of Alcohol and Drug Abuse Patient Records regulations: The Federal rules restrict any use of the information to criminally investigate or prosecute any alcohol or drug abuse patient.[facility] HospitalIn the event this information is protected by the Federal Confidentiality of Alcohol and Drug Abuse Patient Records regulations: The Federal rules restrict any use of the information to criminally investigate or prosecute any alcohol or drug abuse patient.[facility] HospitalIn the event this information is protected by the Federal Confidentiality of Alcohol and Drug Abuse Patient Records regulations: The Federal rules restrict any use of the information to criminally investigate or prosecute any alcohol or drug abuse patient.[facility] HospitalIn the event this information is protected by the Federal Confidentiality of Alcohol and Drug Abuse Patient Records regulations: The Federal rules restrict any use of the information to criminally investigate or prosecute any alcohol or drug abuse patient.[facility] HospitalIn the event this information is protected by the Federal Confidentiality of Alcohol and Drug Abuse Patient Records regulations: The Federal rules restrict any use of the information to criminally investigate or prosecute any alcohol or drug abuse patient.[facility] HospitalIn the event this information is protected by the Federal Confidentiality of Alcohol and Drug Abuse Patient Records regulations: The Federal rules restrict any use of the information to criminally investigate or prosecute any alcohol or drug abuse patient.[facility] HospitalIn the event this information is protected by the Federal Confidentiality of Alcohol and Drug Abuse Patient Records regulations: The Federal rules restrict any use of the information to criminally investigate or prosecute any alcohol or drug abuse patient.[facility] HospitalIn the event this information is protected by the Federal Confidentiality of Alcohol and Drug Abuse Patient Records regulations: The Federal rules restrict any use of the information to criminally investigate or prosecute any alcohol or drug abuse patient.[facility] HospitalIn the event this information is protected by the Federal Confidentiality of Alcohol and Drug Abuse Patient Records regulations: The Federal rules restrict any use of the information to criminally investigate or prosecute any alcohol or drug abuse patient.[facility] HospitalIn the event this information is protected by the Federal Confidentiality of Alcohol and Drug Abuse Patient Records regulations: The Federal rules restrict any use of the information to criminally investigate or prosecute any alcohol or drug abuse patient.[facility] HospitalIn the event this information is protected by the Federal Confidentiality of Alcohol and Drug Abuse Patient Records regulations: The Federal rules restrict any use of the information to criminally investigate or prosecute any alcohol or drug abuse patient.[facility] HospitalIn the event this information is protected by the Federal Confidentiality of Alcohol and Drug Abuse Patient Records regulations: The Federal rules restrict any use of the information to criminally investigate or prosecute any alcohol or drug abuse patient.[facility] HospitalIn the event this information is protected by the Federal Confidentiality of Alcohol and Drug Abuse Patient Records regulations: The Federal rules restrict any use of the information to criminally investigate or prosecute any alcohol or drug abuse patient.[facility] ClinicIn the event this information is protected by the Federal Confidentiality of Alcohol and Drug Abuse Patient Records regulations: The Federal rules restrict any use of the information to criminally investigate or prosecute any alcohol or drug abuse patient.[facility] HospitalIn the event this information is protected by the Federal Confidentiality of Alcohol and Drug Abuse Patient Records regulations: The Federal rules restrict any use of the information to criminally investigate or prosecute any alcohol or drug abuse patient.[facility] HospitalIn the event this information is protected by the Federal Confidentiality of Alcohol and Drug Abuse Patient Records regulations: The Federal rules restrict any use of the information to criminally investigate or prosecute any alcohol or drug abuse patient.[facility] HospitalIn the event this information is protected by the Federal Confidentiality of Alcohol and Drug Abuse Patient Records regulations: The Federal rules restrict any use of the information to criminally investigate or prosecute any alcohol or drug abuse patient.[facility] HospitalIn the event this information is protected by the Federal Confidentiality of Alcohol and Drug Abuse Patient Records regulations: The Federal rules restrict any use of the information to criminally investigate or prosecute any alcohol or drug abuse patient.[facility] HospitalIn the event this information is protected by the Federal Confidentiality of Alcohol and Drug Abuse Patient Records regulations: The Federal rules restrict any use of the information to criminally investigate or prosecute any alcohol or drug abuse patient.[facility] HospitalIn the event this information is protected by the Federal Confidentiality of Alcohol and Drug Abuse Patient Records regulations: The Federal rules restrict any use of the information to criminally investigate or prosecute any alcohol or drug abuse patient.[facility] HospitalIn the event this information is protected by the Federal Confidentiality of Alcohol and Drug Abuse Patient Records regulations: The Federal rules restrict any use of the information to criminally investigate or prosecute any alcohol or drug abuse patient.[facility] HospitalIn the event this information is protected by the Federal Confidentiality of Alcohol and Drug Abuse Patient Records regulations: The Federal rules restrict any use of the information to criminally investigate or prosecute any alcohol or drug abuse patient.[facility] HospitalIn the event this information is protected by the Federal Confidentiality of Alcohol and Drug Abuse Patient Records regulations: The Federal rules restrict any use of the information to criminally investigate or prosecute any alcohol or drug abuse patient.[facility] HospitalIn the event this information is protected by the Federal Confidentiality of Alcohol and Drug Abuse Patient Records regulations: The Federal rules restrict any use of the information to criminally investigate or prosecute any alcohol or drug abuse patient.[facility] HospitalIn the event this information is protected by the Federal Confidentiality of Alcohol and Drug Abuse Patient Records regulations: The Federal rules restrict any use of the information to criminally investigate or prosecute any alcohol or drug abuse patient.[facility] HospitalIn the event this information is protected by the Federal Confidentiality of Alcohol and Drug Abuse Patient Records regulations: The Federal rules restrict any use of the information to criminally investigate or prosecute any alcohol or drug abuse patient.[facility] HospitalIn the event this information is protected by the Federal Confidentiality of Alcohol and Drug Abuse Patient Records regulations: The Federal rules restrict any use of the information to criminally investigate or prosecute any alcohol or drug abuse patient.[facility] HospitalIn the event this information is protected by the Federal Confidentiality of Alcohol and Drug Abuse Patient Records regulations: The Federal rules restrict any use of the information to criminally investigate or prosecute any alcohol or drug abuse patient.[facility] HospitalIn the event this information is protected by the Federal Confidentiality of Alcohol and Drug Abuse Patient Records regulations: The Federal rules restrict any use of the information to criminally investigate or prosecute any alcohol or drug abuse patient.[facility] HospitalIn the event this information is protected by the Federal Confidentiality of Alcohol and Drug Abuse Patient Records regulations: The Federal rules restrict any use of the information to criminally investigate or prosecute any alcohol or drug abuse patient.[facility] HospitalIn the event this information is protected by the Federal Confidentiality of Alcohol and Drug Abuse Patient Records regulations: The Federal rules restrict any use of the information to criminally investigate or prosecute any alcohol or drug abuse patient.[facility] HospitalIn the event this information is protected by the Federal Confidentiality of Alcohol and Drug Abuse Patient Records regulations: The Federal rules restrict any use of the information to criminally investigate or prosecute any alcohol or drug abuse patient.[facility] HospitalIn the event this information is protected by the Federal Confidentiality of Alcohol and Drug Abuse Patient Records regulations: The Federal rules restrict any use of the information to criminally investigate or prosecute any alcohol or drug abuse patient.[facility] HospitalIn the event this information is protected by the Federal Confidentiality of Alcohol and Drug Abuse Patient Records regulations: The Federal rules restrict any use of the information to criminally investigate or prosecute any alcohol or drug abuse patient.[facility] Reason for Visit (unrecogniz ed section and content) Reason Comments Establish Care Reason Comments Insertion Of IUD nexplanon Specialty Diagnoses / Procedures Referred By Contac t Referred To Contact [facility] Diagnoses Contraceptive management Contraceptive management Procedures INSERT DRUG IMPLANT DEVICE Nexplanon insertion/ subdermal arm implant Kim Ward DO [address] [place] [address] [place] [address] Referral ID Status Reason Start Date Expiration Date V isits Requested Visits Authorized [id number] Authorized 10/13/2021 10/12/2022 2 2 Reason Comments Event Zio Patch Reason Comments Earmold Impression Reason Comments Sore Throat S/T 4 days concerns sinus Reason Comments Floaters Right Eye Reason Comments Discussion Reason Comments ED Follow-up Reason Comments Appointment Patient Update Reason Comments Orders Reason Comments Nasal Congestion drainage, cough and sore throat x 2 days Reason Onset Date Comments [facility] COVID Outreach 09/15/2023 Reason Onset Date Comments [facility] Outreach 09/18/2023 Reason Comments complete eye exam Reason Comments Chest Pain Reason Comments Neck Pain Patient squeezed her neck and she had to pull away because the patient wanted her to feel what sge feels. 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 Reason Comments Pain Reason Comments UTI Symptoms started 3 d ays ago pain and odor, and today pain when emptying. Reason Comments Urinary Tract Infection Symptom since Lopez nday night can not empty, back pain, taking otc. Reason Comments Patient Update Pt was informed lab orders are in. Reason Comments Finger Injury Reason Comments Initial OB Visit Reason Comments Question (OB Question) Reason Onset Date Comments Care 11/26/2024 Reason Comments US Specialty Diagnoses / Procedures Referred By Damon t Referred To Contact [facility] Diagnoses Encounter for supervision of high risk in first trimester, antepartum 8 weeks gestation of with uncertain dates in first trimester History of eating disorder Procedures OBSTETRIC ULTRASOUND WHI US PREG UTERUS AFTER 1ST TRIMEST GESTATION Alli Forrester APRN.RADIO PROGRAM DIRECTOR [address] [place] [address] Phone: tel: fax:[phone] [address] [id number] [place] [address] Referral ID Status Reason Start Date Expiration Date V isits Requested Visits Authorized [id number] Closed Auto-Generate d Referral 10/27/2024 10/27/2025 1 1 Reason Comments OB SOB, CP Reason Comments ER F/U Asthma Reason Onset Date Comments Care 12/23/2024 Reason Comments Follow Up Ob-Spotting Reason Comments Establish Care Specialty Diagnoses / Procedures Referred By Damon t Referred To Contact [facility] Diagnoses Encounter for supervision of high risk in first trimester, antepartum (HCC) 8 weeks gestation of (HCC) with uncertain dates in first trimester (HCC) History of eating disorder Procedures OBSTETRIC ULTRASOUND WHI US PREG UTERUS AFTER 1ST TRIMEST GESTATION Alli Forrester APRN.RADIO PROGRAM DIRECTOR [address] [place] [address] Phone: tel: fax:[phone] [facility] [place] [address] Referral ID Status Reason Start Date Expiration Date V isits Requested Visits Authorized [id number] Closed Auto-Generate d Referral 10/27/2024 10/27/2025 1 1 Reason Onset Date Comments Care 01/21/2025 Reason Onset Date Comments Care 02/16/2025 Reason Comments Sinus Problem Sinus and congestion x 1 week Reason Comments Nasal Congestion nasal drainage which is clear since February 4post nasal drip with sore throat about 1 weekcough dry non productive Reason Onset Date Comments Care 03/28/2025 Reason Onset Date Comments Care 04/13/2025 Reason Comments Patient Question Reason Onset Date Comments Care 04/28/2025 Specialty Diagnoses / Procedures Referred By Damon t Referred To Contact [facility] Diagnoses Supervision of high risk in third trimester ([facility]) 32 weeks gestation of ([facility]) Uterine size-date discrepancy, third trimester ([facility]) Procedures OBSTETRIC ULTRASOUND WHI US PREG UTERUS AFTER 1ST TRIMEST GESTATION Arlene Narayan APRN.CN [address] [place] [address] Phone: tel: fax: [address] [address] [place] [address] Referral ID Status Reason Start Date Expiration Date Visits Requested Visits Authorized [id number] Pending Review Auto-Genera eun Referral Patient Cleared - Admin/Chair man/Directo r advise to proceed or did not respond 04/13/2025 04/13/2026 1 1 Reason Onset Date Comments Care 04/20/2025 Reason Onset Date Comments Care 05/09/2025 Reason Onset Date Comments Care 05/24/2025 Reason Onset Date Comments Population Health Navigation Outreach 05/25/2025 to PCP/OB Reason Onset Date Comments Care 06/01/2025 Reason Onset Date Comments Care 06/03/2025 Care Teams (unrecognized sec tion and content) Masking Machine Operator Relationship Specialty Start Date End Date Kim Ward DO [address] [place], [place] [address]892 PCP - General Family Practice 05/06/22 Masking Machine Operator Relationship Specialty Start Date End Date Kim Ward DO [address] [place], [place] 919522 PCP - General Family Practice 05/06/22 Masking Machine Operator Relationship Specialty Start Date End Date Kim Ward DO [address] [place], [place] 576102 PCP - General Family Medicine 05/06/22 Masking Machine Operator Relationship Specialty Start Date End Date Kim Ward DO [address] [place], [place] 327232 PCP - General Family Medicine 05/06/22 Jacques Hu, DO [address] [place] [address] Primary Staff Physician Cardiology 09/04/22 Masking Machine Operator Relationship Specialty Start Date End Date Kim Ward DO [address] [place], [place] 961722 PCP - General Family Medicine 05/06/22 Jacques Hu, DO [address] [place] [address] Primary Staff Physician Cardiology 09/04/22 Masking Machine Operator Relationship Specialty Start Date End Date Kim Ward DO [address] [place], [place] 537302 PCP - General Family Medicine 05/06/22 Jacques Hu, DO [address] [place] [address] Primary Staff Physician Cardiology 09/04/22 Masking Machine Operator Relationship Specialty Start Date End Date Kim Ward DO [address] [place], [place] 305482 PCP - General Family Medicine 05/06/22 Jacques Hu, DO [address] [place] [address] Primary Staff Physician Cardiology 09/04/22 Masking Machine Operator Relationship Specialty Start Date End Date Amstadt, Kim, DO [address] [place] [address] PCP - General Family Medicine 05/06/22 Jacques Hu DO [address] [place], [place] [id number] Primary Staff Physician Cardiology 09/04/22 Team Status: Active Member Role Status Dates Kim Ward Primary Care Provider Active Team Status: Inactive Member Role Status Dates Dr. Mandy Fontaine MD Emergency Provider Active Sylvia Alvarez Primary Care Provider Active Masking Machine Operator Relationship Specialty Start Date End Date Kim Ward DO [address] [place] [address] PCP - General Family Medicine 05/06/22 Jacques Hu DO [address] [place] [address] Primary Staff Physician Cardiology 09/04/22 Masking Machine Operator Relationship Specialty Start Date End Date Kim Ward DO [address] [place] [address] PCP - General Family Medicine 05/06/22 Jacques Hu DO [address] [place] [address] Primary Staff Physician Cardiology 09/04/22 Masking Machine Operator Relationship Specialty Start Date End Date Kim Ward DO [address] [place], [place] 813912 PCP - General Family Medicine 05/06/22 Jacques Hu DO [address] [place] [address] Primary Staff Physician Cardiology 09/04/22 Masking Machine Operator Relationship Specialty Start Date End Date Kim Ward DO [address] [place], [place] 490112 PCP - General Family Medicine 05/06/22 Jacques Hu DO [address] [place] [address] Primary Staff Physician Cardiology 09/04/22 Masking Machine Operator Relationship Specialty Start Date End Date Kim Ward DO [address] [place] [address] PCP - General Family Medicine 05/06/22 Jacques Hu DO [address] [place] [address] Primary Staff Physician Cardiology 09/04/22 Masking Machine Operator Relationship Specialty Start Date End Date Kim Ward DO [address] [place], [place] 282922 PCP - General Family Medicine 05/06/22 Jacques Hu DO [address] [place] [address] Primary Staff Physician Cardiology 09/04/22 Masking Machine Operator Relationship Specialty Start Date End Date Kim Ward DO [address] [place] [address] PCP - General Family Medicine 05/06/22 Jacques Hu DO [address] [place] [address] Primary Staff Physician Cardiology 09/04/22 Masking Machine Operator Relationship Specialty Start Date End Date Kim Ward DO [address] [place], [place] 871172 PCP - General Family Medicine 05/06/22 Jacques Hu DO [address] [place], [place] 5377306 Primary Staff Physician Cardiology 09/04/22 Team Status: Inactive Member Role Status Dates Sylvia Alvarez Primary Care Provider Active Dr. Giovani Fernandez , Emergency Provider Active Masking Machine Operator Relationship Specialty Start Date End Date Kim Ward DO [address] [place] [address] PCP - General Family Medicine 05/06/22 Jacques Hu DO [address] [place], [place] [address]65[address]06 Primary Staff Physician Cardiology 09/04/22 Masking Machine Operator Relationship Specialty Start Date End Date Kim Ward DO [address] [place] [address] PCP - General Family Medicine 05/06/22 Jacques Hu DO [address] [place] [address] Primary Staff Physician Cardiology 09/04/22 Masking Machine Operator Relationship Specialty Start Date End Date Kim Ward DO [address] [place] [address] PCP - General Family Medicine 05/06/22 Jacques Hu DO [address] [place] [address] Primary Staff Physician Cardiology 09/04/22 Masking Machine Operator Relationship Specialty Start Date End Date Kim Ward DO [address] [place] [address] PCP - General Family Medicine 05/06/22 Jacques Hu DO [address] [place] [address] Primary Staff Physician Cardiology 09/04/22 Felicia Muller APRN.RADIO PROGRAM DIRECTOR [address] [place] [address] Certified Professional Midwife Family Medicine 09/17/24 Masking Machine Operator Relationship Specialty Start Date End Date Kim Ward DO [address] [place] [address] PCP - General Family Medicine 05/06/22 Jacques Hu DO [address] [place], [place] 850[address] Primary Staff Physician Cardiology 09/04/22 Felicia Muller APRN.RADIO PROGRAM DIRECTOR [address] [place] [address] Certified Professional Midwife Family [facility] 09/17/24 Masking Machine Operator Relationship Specialty Start Date End Date Kim Ward DO [address] [place] [address] PCP - General Family Medicine 05/06/22 Jacques Hu DO [address] [place], [place] 0911006 Primary Staff Physician Cardiology 09/04/22 Felicia Muller APRN.RADIO PROGRAM DIRECTOR [address] [place], [place] 211882 Certified Professional Midwife Family [facility] 09/17/24 Masking Machine Operator Relationship Specialty Start Date End Date Kim Ward DO [address] [place], [place] 818642 PCP - General Family Medicine 05/06/22 Jacques Hu DO [address] [place], [place] 5207806 Primary Staff Physician Cardiology 09/04/22 Felicia Muller APRN.RADIO PROGRAM DIRECTOR [address] [place] [address] [facility] 09/17/24 Masking Machine Operator Relationship Specialty Start Date End Date Kim Ward DO [address] [place] [address] PCP - General Family Medicine 05/06/22 Jacques Hu DO [address] [place], [place] 246[address] Primary Staff Physician Cardiology 09/04/22 Felicia Muller APRN.RADIO PROGRAM DIRECTOR [address] [place], [place] 175942 [facility] 09/17/24 Masking Machine Operator Relationship Specialty Start Date End Date Kim Ward DO [address] [place], [place] 805942 PCP - General Family Medicine 05/06/22 Jacques Hu DO [address] [place], [place] 3104206 Primary Staff Physician Cardiology 09/04/22 Felicia Muller APRN.RADIO PROGRAM DIRECTOR [address] [place], [place] 875682 Certified Professional Midwife Family [facility] 09/17/24 Masking Machine Operator Relationship Specialty Start Date End Date Kim Ward DO [address] [place], [place] 841902 PCP - General Family Medicine 12/06/24 Jacques Hu DO [address] [place], [place] 8411006 Primary Staff Physician Cardiology 09/04/22 Felicia Muller APRN.RADIO PROGRAM DIRECTOR [address] [place] [address] [facility] 09/17/24 Masking Machine Operator Relationship Specialty Start Date End Date Kim Ward DO [address] [place], [place] 833292 PCP - General Family Medicine 12/06/24 Jacques Hu DO [address] [place], [place] 637[address]6 Primary Staff Physician Cardiology 09/04/22 Felicia Muller APRN.RADIO PROGRAM DIRECTOR [address] [place], [place] 472712 Certified Professional Midwife Family Medicine 09/17/24 Jillian Hyde APRN.RADIO PROGRAM DIRECTOR [address] [place], [place] 833912 Certified Professional Midwife Family [facility] 12/23/24 Masking Machine Operator Relationship Specialty Start Date End Date Kim Ward DO [address] [place], [place] 038452 PCP - General Family Medicine 12/06/24 Jacques Hu DO [address] [place], [place] 5113506 Primary Staff Physician Cardiology 09/04/22 Felicia Muller APRN.RADIO PROGRAM DIRECTOR [address] [place] [address] Certified Professional Midwife Family [facility] 09/17/24 Jillian Hyde APRN.RADIO PROGRAM DIRECTOR [address] [place] [address] [facility] 12/23/24 Masking Machine Operator Relationship Specialty Start Date End Date Kim Ward DO [address] [place] [address] PCP - General Family Medicine 12/06/24 Jacques Hu DO [address] [place], [place] 5839406 Primary Staff Physician Cardiology 09/04/22 Felicia Muller APRN.RADIO PROGRAM DIRECTOR [address] [place], [place] 829912 Certified Professional Midwife Family [facility] 09/17/24 Jillian Hyde APRN.RADIO PROGRAM DIRECTOR [address] [place] [address] Certified Professional Midwife Family Medicine 12/23/24 Masking Machine Operator Relationship Specialty Start Date End Date Donte Singleton MD [address] [place] [address] PCP - General Family Medicine 12/29/24 Jacques Hu DO [address] [place] [address] Primary Staff Physician Cardiology 09/04/22 Felicia Muller APRN.RADIO PROGRAM DIRECTOR [address] [place] [address] Certified Professional Midwife Family Medicine 09/17/24 Jillian Hyde APRN.RADIO PROGRAM DIRECTOR [address] [place] [address] Certified Professional Midwife Family [facility] 12/23/24 Masking Machine Operator Relationship Specialty Start Date End Date Donte Singleton MD [address] [place] [address] PCP - General Family Medicine 12/29/24 Jacques Hu DO [address] [place] [address] Primary Staff Physician Cardiology 09/04/22 Felicia Muller APRN.RADIO PROGRAM DIRECTOR [address] [place], [place] 363142 Certified Professional Midwife Family [facility] 09/17/24 Jillian Hyde APRN.RADIO PROGRAM DIRECTOR [address] [place], [place] [id number] Certified Professional Midwife Family Medicine 12/23/24 Masking Machine Operator Relationship Specialty Start Date End Date Donte Singleton MD [address] [place], [place] 139691 PCP - General Family Medicine 12/29/24 Jacques Hu DO [address] [place] [address] Primary Staff Physician Cardiology 09/04/22 Lexy Rushing APRN.RADIO PROGRAM DIRECTOR [address] [place], [place] 638761 Certified Professional Midwife Family [facility] 01/03/25 Shobha Sanchez APRN.RADIO PROGRAM DIRECTOR [address] [place], [place] [id number] [facility] 01/03/25 Masking Machine Operator Relationship Specialty Start Date End Date Kim Ward DO [address] [place], [place] [id number] PCP - General Family Medicine 05/06/22 12/05/24 Kim Ward DO [address] [place], [place] [id number] PCP - General Family Medicine 12/06/24 12/28/24 Donte Singleton MD [address] [place], [place] 27659[address] PCP - General Family Medicine 12/29/24 Jacques Hu DO [address] [place] [address] Primary Staff Physician Cardiology 09/04/22 Felicia Muller APRN.RADIO PROGRAM DIRECTOR [address] [place], [place] 278232 Certified Professional Midwife Family [facility] 09/17/24 01/02/25 Jillian Hyde, NUTRITIONAL SERVICES COOK.RADIO PROGRAM DIRECTOR [address] [place], [place] [address]2022 [facility] 12/23/24 01/02/25 PodlogarLexy APRN.RADIO PROGRAM DIRECTOR [facility] [place], [place] [address] [facility] 01/03/25 Shobha Sanchez APRN.RADIO PROGRAM DIRECTOR [address] [place] [address] [facility] 01/03/25 Masking Machine Operator Relationship Specialty Start Date End Date Donte Singleton MD [address] [place] [address]27[address] PCP - General Family Medicine 12/29/24 Jacques Hu DO [address] [place] [address] Primary Staff Physician Cardiology 09/04/22 PodcalebarLexy NUTRITIONAL SERVICES COOK.RADIO PROGRAM DIRECTOR [address] [place] [address] [facility] 01/03/25 Shobha Sanchez APRN.RADIO PROGRAM DIRECTOR [facility] [place] [address] [facility] 01/03/25 Masking Machine Operator Relationship Specialty Start Date End Date Donte Singleton MD [address] [place] [address] PCP - General Family Medicine 12/29/24 Jacques Hu DO [address] [place] [address] Primary Staff Physician Cardiology 09/04/22 PodlogarLexy NUTRITIONAL SERVICES COOK.RADIO PROGRAM DIRECTOR [address] [place], [place] 437231 Certified Professional Midwife Family Medicine 01/03/25 Shobha Sanchez APRN.RADIO PROGRAM DIRECTOR [facility] [place], [place] [address]8671 Certified Professional Midwife Family Medicine 01/03/25 Masking Machine Operator Relationship Specialty Start Date End Date Donte Singleton MD [address] [place], [place] 895311 PCP - General Family Medicine 12/29/24 Jacques Hu DO [address] [place] [address] Primary Staff Physician Cardiology 09/04/22 PodlogarLexy, NUTRITIONAL SERVICES COOK.RADIO PROGRAM DIRECTOR [address] [place] [address] Certified Professional Midwife Family Medicine 01/03/25 Shobha Sanchez APRN.RADIO PROGRAM DIRECTOR [address] [place] [address] Certified Professional Midwife Family Medicine 01/03/25 Masking Machine Operator Relationship Specialty Start Date End Date Donet Singleton MD [address] [place] [address] PCP - General Family Medicine 12/29/24 Jacques Hu DO [address] [place] [address] Primary Staff Physician Cardiology 09/04/22 PodlogarLexy APRN.RADIO PROGRAM DIRECTOR [address] [place] [address] Certified Professional Midwife Family Medicine 01/03/25 Shobha Sanchez APRN.RADIO PROGRAM DIRECTOR [address] [place] [address] Certified Professional Midwife Family Medicine 01/03/25 Masking Machine Operator Relationship Specialty Start Date End Date Donte Singleton MD [address] [place] [address] PCP - General Family Medicine 12/29/24 Jacques Hu DO [address] [place] [address] Primary Staff Physician Cardiology 09/04/22 PodlogarLexy APRN.RADIO PROGRAM DIRECTOR [address] [place] [address] Certified Professional Midwife Family Medicine 01/03/25 Shobha Sanchez APRN.RADIO PROGRAM DIRECTOR [address] [place] [address] Certified Professional Midwife Family Medicine 01/03/25 Masking Machine Operator Relationship Specialty Start Date End Date Kim Ward DO [address] [place] [address] PCP - General Family Medicine 12/06/24 12/28/24 Donte Singleton MD [address] [place], [place] 990981 PCP - General Family Medicine 12/29/24 Jacques Hu DO [address] [facility] [place] [place] [address] Primary Staff Physician Cardiology 09/04/22 Felicia Muller, NUTRITIONAL SERVICES COOK.RADIO PROGRAM DIRECTOR [address] [place] [id number] Certified Professional Midwife Family [facility] 09/17/24 01/02/25 Jillian Hyde, NUTRITIONAL SERVICES COOK.RADIO PROGRAM DIRECTOR [address] [place] [address] Certified Professional Midwife Family [facility] 12/23/24 01/02/25 Lexy Rushing, NUTRITIONAL SERVICES COOK.RADIO PROGRAM DIRECTOR [address] [place], [place] 0[address]861 Certified Professional Midwife Family [facility] 01/03/25 Shobha Sanchez, NUTRITIONAL SERVICES COOK.RADIO PROGRAM DIRECTOR [address] [place], [place] 415011 Certified Professional Midwife Family [facility] 01/03/25 Masking Machine Operator Relationship Specialty Start Date End Date Donte Singleton MD [address] [place], [place] [id number] PCP - General Family Medicine 12/29/24 Jacques Hu DO [address] [place] [address] Primary Staff Physician Cardiology 09/04/22 PodlogarLexy APRN.RADIO PROGRAM DIRECTOR [address] [place], [place] 614621 Certified Professional Midwife Family [facility] 01/03/25 Masking Machine Operator Relationship Specialty Start Date End Date Donte Singleton MD [address] [place], [place] [id number] PCP - General Family Medicine 12/29/24 Jacques Hu DO [address] [place], [place] [id number] Primary Staff Physician Cardiology 09/04/22 PodlogarLexy APRN.RADIO PROGRAM DIRECTOR [address] [place] [id number] Certified Professional Midwife Family Medicine 01/03/25 Shobha Sanchez APRN.RADIO PROGRAM DIRECTOR [address] [place] [phone] Certified Professional Midwife Family Medicine 03/24/25 Masking Machine Operator Relationship Specialty Start Date End Date Donte Singleton MD [facility] [place], [place] [address]331 PCP - General Family Medicine 12/29/24 Jacques Hu DO [address] [place], [place] [id number] Primary Staff Physician Cardiology 09/04/22 PodLexy borja APRN.RADIO PROGRAM DIRECTOR [address] [place], [place] [id number] Certified Professional Midwife Family Medicine 01/03/25 Shobha Sanchez APRN.RADIO PROGRAM DIRECTOR [address] [place], [place] 495[address] [facility] 03/24/25 Masking Machine Operator Relationship Specialty Start Date End Date Donte Singleton MD [address] [place], [place] 673741 PCP - General Family Medicine 12/29/24 Jacques Hu DO [address] [place], [place] [id number] Primary Staff Physician Cardiology 09/04/22 PodlogarLexy APRN.RADIO PROGRAM DIRECTOR [address] [place] [address] [facility] 01/03/25 Shobha Sanchez APRN.RADIO PROGRAM DIRECTOR [address] [place], [place] 9544[address] [facility] 03/24/25 Masking Machine Operator Relationship Specialty Start Date End Date Donte Singleton MD [address] [place], [place] 116291 PCP - General Family Medicine 12/29/24 Jacques Hu DO [address] [place] [address] Primary Staff Physician Cardiology 09/04/22 PodlogarLexy APRN.RADIO PROGRAM DIRECTOR [address] [place] [address] Certified Professional Midwife Family Medicine 01/03/25 Shobha Sanchez APRN.RADIO PROGRAM DIRECTOR [address] [place] [address] Certified Professional Midwife Family [facility] 03/24/25 Masking Machine Operator Relationship Specialty Start Date End Date Donte Singleton MD [address] [place] [address] PCP - General Family Medicine 12/29/24 Jacques Hu DO [address] [place], [place] [id number] Primary Staff Physician Cardiology 09/04/22 PodlogarLexy APRN.RADIO PROGRAM DIRECTOR [address] [place] [address] Certified Professional Midwife Family Medicine 01/03/25 Shobha Sanchez APRN.RADIO PROGRAM DIRECTOR [address] [place] [id number] [facility] 03/[facility]/25 Masking Machine Operator Relationship Specialty Start Date End Date Donte Singleton MD [address] [place], [place] 100521 PCP - General Family Medicine 12/29/24 Jacques Hu DO [address] [place] [address] Primary Staff Physician Cardiology 09/04/22 PodlogarLexy APRN.RADIO PROGRAM DIRECTOR [address] [place] [address] Certified Professional Midwife Family Medicine 01/03/25 Shobha Sanchez APRN.RADIO PROGRAM DIRECTOR [facility] [place], [place] [address]84191 Certified Professional Midwife Family Medicine 03/24/25 Masking Machine Operator Relationship Specialty Start Date End Date Donte Singleton MD [address] [place], [place] 132461 PCP - General Family Medicine 12/29/24 Jacques Hu DO [address] [place] [address] Primary Staff Physician Cardiology 09/04/22 Podlogar, LAMINE PughN.RADIO PROGRAM DIRECTOR [address] [place] [address] Certified Professional Midwife Family Medicine 01/03/25 Shobha Sanchez APRN.RADIO PROGRAM DIRECTOR [address] [place] [address] [facility] 03/24/25 Masking Machine Operator Relationship Specialty Start Date End Date Donte Singleton MD [address] [place] [address] PCP - General Family Medicine 12/29/24 Jacques Hu DO [address] [place] [address] Primary Staff Physician Cardiology 09/04/22 PodlogarLexy, NUTRITIONAL SERVICES COOK.RADIO PROGRAM DIRECTOR [address] [place] [address] [facility] Family Medicine 01/03/25 Shobha Sanchez APRN.RADIO PROGRAM DIRECTOR [address] [place], [place] [id number] Certified Professional Midwife Family Medicine 03/24/25 Masking Machine Operator Relationship Specialty Start Date End Date Donte Singleton MD [address] [place], [place] 276921 PCP - General Family Medicine 12/29/24 Jacques Hu DO [address] [facility] [place] [place] [address] Primary Staff Physician Cardiology 09/04/22 Podlogar, Lexy, NUTRITIONAL SERVICES COOK.RADIO PROGRAM DIRECTOR [address] [place], [place] [address]60[address] [facility] Medicine 01/03/25 Shobha Sanchez APRN.RADIO PROGRAM DIRECTOR [address] [place], [place] 110791 [facility] Medicine 03/24/25 Masking Machine Operator Relationship Specialty Start Date End Date Donte Singleton MD [address] [place], [place] 911701 PCP - General Family Medicine 12/29/24 Jacques Hu DO [address] [place] [address] Primary Staff Physician Cardiology 09/04/22 PodlogarLexy NUTRITIONAL SERVICES COOK.RADIO PROGRAM DIRECTOR [address] [place], [place] 013871 [facility] Family Medicine 01/03/25 Shobha Sanchez, TAMMY.RADIO PROGRAM DIRECTOR [address] [place], [place] [address] [facility] Medicine 03/24/25 Goals (unrecognized section and content) Goals may be documented in a n alternate sectionGoals may be documented in an alternate section FOR RECORDS PERTAINING TO PATIENTS WHO ARE OR HAVE BEEN ENROLLED IN A CHEMICAL DEPENDENCY/SUBSTANCEABUSE PROGRAM, SOME INFORMATION MAY BE OMITTED. This clinical summary was aggregated from multiple sources. Caution should be exercised in using it in the provision of clinical care. This summary normalizes information from multiple sources, and as a consequence, information in this document may materially change the coding, format and clinical context of patient data. In addition, data may be omitted in some cases. CLINICAL DECISIONS SHOULD BE BASED ON THE PRIMARY CLINICAL RECORDS. [facility]. provides no warranty or guarantee of the accuracy or completeness of information in this document.
[2025-06-06 04:47] LABS: ROM Internal Control Test YES-OK TO RESULT pt. (Internal QC)
[2025-06-06 04:48] LABS: ROM Patient Test POSITIVE (Negative); Record Kit Lot#, ROM+ K3358
--- OUTSIDE RECORDS SUMMARY | 2025-06-06 05:04 | XMS RPT_ITS | CCD ---
Author Organization [facility]iniSy[facility] Care Team Providers Care Ui Lead Developer Name Role Phone Sylvia VICKERS, Kim Primary Care Provider [place]stadt DO, Kim Primary Care Provider CoursJacques umana DO Unavailable Jacques Hu DO Unavailable Amstadt DO, Kim Primary Care Provider AMSDT, KIM Primary Care Unavailable Harvan BIOMEDICAL EQUIPMENT SUPPORT SPECIALIST.Felicia PETTIT Unavailable Amstadt , [facility] Primary Care Provider FAIR, MUDITA Primary Care Unavailable Rodrigues, Rick Referring Unavailable Rodrigues, Rick Attending Unavailable Giovani Fernandez Attending Unavailable FAIR, MUDITA Primary Care Unavailable Mary Ellen BIOMEDICAL EQUIPMENT SUPPORT SPECIALIST.Jillian PETTIT Unavailable [phone] Donte Singleton MD Primary Care Provider Podlogar BIOMEDICAL EQUIPMENT SUPPORT SPECIALIST.Lexy PETTIT Unavailable Knoble BIOMEDICAL EQUIPMENT SUPPORT SPECIALIST.Shobha PETTIT Unavailable Amstadt DO, [facility] Primary Care Provider Harvan BIOMEDICAL EQUIPMENT SUPPORT SPECIALIST.Felicia PETTIT Unavailable [place] , [facility] Primary Care Provider Hood BIOMEDICAL EQUIPMENT SUPPORT SPECIALIST.Jillian PETTIT Unavailable Knoble BIOMEDICAL EQUIPMENT SUPPORT SPECIALIST.Shobha PETTIT Unavailable Jacques Hu DO Unavailable ALLI [...] [CATS] Propensity to adverse reactions 3 Itching [facility] (20 sources) Dust; Translations: [DUST] Propensity to adverse reactions 3 Itching, Other: See Comments [facility] (20 sources) Grass pollen; Translations: [GRASS POLLEN] Drug Allergy 1 Rash [facility] (5 sources) Amoxicillin; Translations: [AMOXICILLIN] Drug Allergy 3 Other: See Comments [facility] Medications Current Medications Medication Drug Class(es) Dates Sig (Normalized) Sig (Original) [id number] 200 actuat albuterol 0.09 mg/actuat metered dose [...] Comment on above: Take 1 tablet by [facility] twice daily for 10 days. amoxicillin 875 [...] tablet 0 05/16/2024 05/23/2024 Active triamcinolone acetonide 0.47026 mg/mg topical ointment (20 sources) Corticosteroid Start: [...] , 8 weeks gestation of ([facility]) , with uncertain dates in first trimester ([facility]) , History of eating disorder Take 1 [...] risk in first trimester, antepartum ([facility])] Onset: 10-27-2024 Episodic Other lower respiratory disease [...] Translations: [24 weeks gestation of ([facility])] Onset: 02-16-2025 Episodic Residual codes; unclassified (2 [...] 5 Glucose Ql (U) Negative Neg mg/dL [facility] Interpretation and review of laboratory results Normal [facility] Protein.monoclonal (U) [Mass/Vol] trace Neg mg/dL [facility] URINE OB DIP B/Oon 5 Glucose Ql (U) Negative Neg mg/dL [facility] Protein.monoclonal (U) [Mass/Vol] Negative Neg mg/dL [facility] ROUTINE, GROUP B ST REPTOCOCCUS BY PCRon 05-18-2025 ROUTINE, GROUP B STREPTOCOCCUS BY PCR Not detected Normal [facility] Comment on above: Performed By: #### G BPCR ####[facility] LABCLIA [id number] [place] [address] [place] URINE OB DIP B/Oon 5 Glucose Ql (U) Negative Neg mg/dL [facility] Interpretation and review of laboratory results Normal [facility] Protein.monoclonal (U) [Mass/Vol] Negative Neg mg/dL [facility] Examination level ultrasound on 04-28-2025 [facility] Radiology Study observation (narrative) [facility] URINE OB DIP B/Oon 5 Glucose Ql (U) Negative Neg mg/dL [facility] Interpretation and review of laboratory results Normal [facility] Protein.monoclonal (U) [Mass/Vol] Negative Neg mg/dL [facility] CNPNon 04-20-2025 CNPN Telephone (OBGYWM) ---- HOWARD DONALD ([id number]) 03 F [facility] Date Time Provider Department 04/20/25 ALLI FORRESTERWSonido [...] 2:11 PM Signed Next OB appt with [facility] scheduled for 04/28/25. Goldie Oquendo RN Allergies As of Date: 04/20/2025 Noted Allergy Reaction CATS 01/06/2023 9 - Itching DUST 01/06/2023 9 - Itching 14 - Other: See Comments GRASS POLLEN 03/14/2021 2 - Rash Comments: Sneezing and Rash Date Reviewed: 04/20/2025 Reviewed by: Alli Forrester APRN.CNP - Fully Assessed Reason for Visit: Patient Question [5772] Prescriptions as of 04/20/2025 - triamcinolone (KENALOG) [...] Resolved TBI (traumatic brain injury) ([facility]) [S06.9XAA] 05/06/2022 History of depression [Z86.59] 05/06/2022 [...] Status:Closed by GOLDIE OQUENDO on 04/20/25 Normal [facility] CBC W Auto Differential pane l (Bld)on 03-16-2025 Basophils (Bld) [#/Vol] 0.04 10*3/uL Normal <0.11 [facility] Comment on above: Order Comment: Speci men Type: BLOOD SPECIMENOrdering Facility: [facility] Address: [address] [place] [address] Performed By: #### 5 7021-8 ####[facility] [id number] [place] [address] [place] Basophils/100 WBC (Bld) 0.3 % Normal [facility] Comment on above: Order Comment: Speci men Type: BLOOD SPECIMENOrdering Facility: [facility] Address: [address] [place] [address] Performed By: #### 5 7021-8 ####[facility] [id number] [place] [address] [place] Differential cell count method Nom (Bld) Auto Normal [facility] Comment on above: Order Comment: Speci men Type: BLOOD SPECIMENOrdering Facility: [facility] Address: [address] [place] [address] Performed By: #### 5 7021-8 ####[facility] MILLADAMARISWNCLIA [id number] [place] [address] [place] Eosinophils (Bld) [#/Vol] 0.07 10*3/uL Normal <0.46 [facility] Comment on above: Order Comment: Speci men Type: BLOOD SPECIMENOrdering Facility: [facility] Address: [address] [place] [address] Performed By: #### 5 7021-8 ####[facility]ITALWRACHELLIA [id number] [place] [address] [place] Eosinophils/100 WBC (Bld) 0.5 % Normal [facility] Comment on above: Order Comment: Speci men Type: BLOOD SPECIMENOrdering Facility: [facility] Address: [address] [place] [address] Performed By: #### 5 7021-8 ####[facility]ITALRACHELLIA [id number] [place] [address] [place] Erythrocyte distribution width (RBC) [Ratio] 13.1 % Normal 11.5-15.0 [facility] Comment on above: Order Comment: Speci men Type: BLOOD SPECIMENOrdering Facility: [facility] Address: [address] [place] [address] Performed By: #### 5 7021-8 ####[facility]ITALWNCLIA [id number] [place] [address] [place] Hematocrit (Bld) [Volume fraction] 34.3 % Low 36.0-46.0 [facility] Comment on above: Order Comment: Speci men Type: BLOOD SPECIMENOrdering Facility: [facility] Address: [address] [place] [address] Performed By: #### 5 7021-8 ####[facility]ITALWILL[facility] [id number] [place] [address] [place] Hemoglobin (Bld) [Mass/Vol] 11.6 g/dL Normal 11.5-15.5 [facility] Comment on above: Order Comment: Speci men Type: BLOOD SPECIMENOrdering Facility: [facility] Address: [address] [place] [address] Performed By: #### 5 7021-8 ####[facility] [id number] [place] [address] [place] Immature granulocytes (Bld) [#/Vol] 0.15 10*3/uL High <0.10 [facility] Comment on above: Order Comment: Speci men Type: BLOOD SPECIMENOrdering Facility: [facility] Address: [address] [place] [address] Performed By: #### 5 7021-8 ####[facility] [id number] [place] [address] [place] Immature granulocytes/100 WBC (Bld) 1.2 % Normal [facility] Comment on above: Order Comment: Speci men Type: BLOOD SPECIMENOrdering Facility: [facility] Address: [address] [place] [address] Performed By: #### 5 7021-8 ####[facility] [id number] [place] [address] [place] Lymphocytes (Bld) [#/Vol] 1.53 10*3/uL Normal 1.00-4.0 0 [facility] Comment on above: Order Comment: Speci men Type: BLOOD SPECIMENOrdering Facility: [facility] Address: [address] [place] [address] Performed By: #### 5 7021-8 ####[facility]ITALNCLIA [id number] [place] [address] [place] Lymphocytes/100 WBC (Bld) 11.9 % Normal [facility] Comment on above: Order Comment: Speci men Type: BLOOD SPECIMENOrdering Facility: [facility] Address: [address] [place] [address] Performed By: #### 5 7021-8 ####[facility] [id number] [place] [address] [place] MCH (RBC) [Entitic mass] 28.6 pg Normal 26.0-34.0 [facility] Comment on above: Order Comment: Speci men Type: BLOOD SPECIMENOrdering Facility: [facility] Address: [address] [place] [address] Performed By: #### 5 7021-8 ####[facility] [id number] [place] [address] [place] MCHC (RBC) [Mass/Vol] 33.8 g/dL Normal 30.5-36.0 [facility] Comment on above: Order Comment: Speci men Type: BLOOD SPECIMENOrdering Facility: [facility] Address: [address] [place] [address] Performed By: #### 5 7021-8 ####[facility] [id number] [place] [address] [place] MCV (RBC) [Entitic vol] 84.5 fL Normal 80.0-100.0 [facility] Comment on above: Order Comment: Speci men Type: BLOOD SPECIMENOrdering Facility: [facility] Address: [address] [place] [address] Performed By: #### 5 7021-8 ####[facility] [id number] [place] [address] [place] Monocytes (Bld) [#/Vol] 0.86 10*3/uL Normal <0.87 [facility] Comment on above: Order Comment: Speci men Type: BLOOD SPECIMENOrdering Facility: [facility] Address: [address] [place] [address] Performed By: #### 5 7021-8 ####[facility] KIRILLWNCLIA [id number] [place] [address] [place] Monocytes/100 WBC (Bld) 6.7 % Normal [facility] Comment on above: Order Comment: Speci men Type: BLOOD SPECIMENOrdering Facility: [facility] Address: [address] [place] [address] Performed By: #### 5 7021-8 ####[facility]ITALNCLIA [id number] [place] [address] [place] Neutrophils (Bld) [#/Vol] 10.21 10*3/uL High 1.45-7. 50 [facility] Comment on above: Order Comment: Speci men Type: BLOOD SPECIMENOrdering Facility: [facility] Address: [address] [place] [address] Performed By: #### 5 7021-8 ####[facility]ITALNCLIA [id number] [place] [address] [place] Neutrophils/100 WBC (Bld) 79.4 % Normal [facility] Comment on above: Order Comment: Speci men Type: BLOOD SPECIMENOrdering Facility: [facility] Address: [address] [place] [address] Performed By: #### 5 7021-8 ####[facility]OS[facility]ITALWNCLIA [id number] [place] [address] [place] Nucleated RBC (Bld) [#/Vol] 10*3/uL Normal <0.01 [facility] Comment on above: Order Comment: Speci men Type: BLOOD SPECIMENOrdering Facility: [facility] Address: [address] [place] [address] Performed By: #### 5 7021-8 ####[facility]ITALNCLIA [id number] [place] [address] [place] Nucleated RBC/100 WBC (Bld) [Ratio] 0.0 /100 WBC Normal [facility] Comment on above: Order Comment: Speci men Type: BLOOD SPECIMENOrdering Facility: [facility] Address: [address] [place] [address] Performed By: #### 5 7021-8 ####[facility] [id number] [place] [address] [place] Platelet mean volume (Bld) [Entitic vol] 9.3 fL Normal 9.0-12.7 [facility] Comment on above: Order Comment: Speci men Type: BLOOD SPECIMENOrdering Facility: [facility] Address: [address] [place] [address] Performed By: #### 5 7021-8 ####[facility] [id number] [place] [address] [place] Platelets (Bld) [#/Vol] 254 10*3/uL Normal 150-400 [facility] Comment on above: Order Comment: Speci men Type: BLOOD SPECIMENOrdering Facility: [facility] Address: [address] [place] [address] Performed By: #### 5 7021-8 ####[facility] [id number] [place] [address] [place] RBC (Bld) [#/Vol] 4.06 10*6/uL Normal 3.90-5.20 [facility] Comment on above: Order Comment: Speci men Type: BLOOD SPECIMENOrdering Facility: [facility] Address: [address] [place] [address] Performed By: #### 5 7021-8 ####[facility] [id number] [place] [address] [place] WBC (Bld) [#/Vol] 12.86 10*3/uL High 3.70-11.00 [facility] Comment on above: Order Comment: Speci men Type: BLOOD SPECIMENOrdering Facility: [facility] Address: [address] [place] [address] Performed By: #### 5 7021-8 ####[facility] [id number] [place] [address] [place] GESTATIONAL GLUCOSE SCREEN, 1-HOUR, 50 GRAM, NON-FASTINGon 03-16-2025 Glucose [Mass/Vol] 72 mg/dL Low 74-134 [facility] Comment on above: Order Comment: Sami ok Type: BLOOD SPECIMEN [facility] Address: [address] [place] [address] Result Comment: [facility] Congress of Obstetricians and Gynecologists (Tim/Jamal) guidelines state a gestational diabetes mellitus positive screen is made, in women not previously diagnosed with overt diabetes, when the 1 hr plasma glucose level is equal to or above 140 mg/dL. The [facility] [employer] [facility] [place] recommends a 135 mg/dL cutoff. Performed By: #### L [id number] #### [facility] CLIA [id number] [address] [place] [address] [place] Reagin and Treponema pallidu m IgG and IgM [Interp]on 03-16-2025 T. pallidum IgG+IgM IA Ql (S) Non-Reactive Normal Nonreactive [facility] Comment on above: Order Comment: Speci men Type: BLOOD SPECIMENOrdering Facility: [facility] Address: [address] [place] [address] Performed By: #### 7 3752-8 ####[facility] LABCLIA [id number] [place] [address] [place] Reagin+T pallidum IgG+IgM Se rPl-Impon 03-16-2025 Reagin and Treponema pallidum IgG and IgM [Interp] Cannot exclude recent Treponemal infection if specimen collected within 7-10 days after appearance of suspect lesions or 2-3 weeks after an exposure. Clinical correlation is required. Normal [facility] Comment on above: Order Comment: Speci men Type: BLOOD SPECIMENOrdering Facility: [facility] Address: [address] [place] [address] Performed By: #### 7 3752-8 ####[facility] LABCLIA [id number] [facility] [address] OF [facility] CNOVon 02-23-2025 CNOV Office Visit (INTMWS) ---- IVANIA DONALDLEY Raul ([id number]) 03 [facility] Date Time Provider Department 02/23/25 2:00 PM KAMRAN GUTHRIE INTMWS During your visit today, we recorded the following information about you: Temperature Pulse Blood pressure Weight 98.7 degrees 107/minute 90/46 87.2 kg Kamran Guthrie APRN.ENROUTE CONTROLLER 02/23/2025 2:11 PM Signed SUBJECTIVE Howard Donald [...] for Supervision of Normal in Second Trimester ([facility]) - 02/16/2025 Exercise-Induced Asthma ([facility]) - 12/29/2024 Asthma Affecting in First Trimester ([facility]) - 10/27/2024 Comment: October 27, 2024 Uses albuterol PRN. No Hemabate with delivery. Alli Forrester, BIOMEDICAL EQUIPMENT SUPPORT SPECIALIST.ENROUTE CONTROLLER Supervision of High Risk in Second Trimester ([facility]) - 10/27/2024 Comment: Care Checklist Vaccines: [...] (28-30 weeks): [] Consent [] Contraception [] Kennel Manager Dog Track [] TeamBirth handout Third trimester (36-40 weeks): [...] throughout so far. Has seen counseling through jehovah's witness in the past. No concerns with mood at this time. Mental health resources provided. Alli Forrester APRN.WILVER Nausea and Vomiting in ([facility]) - 10/27/2024 Comment: 10/27/24 Vitamin B6 doses reviewed. To notify if prescription is needed. Alli Forrester APRN.CNP Constipation During in First Trimester ([facility]) - 10/27/2024 Comment: October 27, 2024 Discussed Colace and increased hydration. Alli Forrester APRN.WILVER Vasovagal Syncope - 09/10/2023 Tbi (Traumatic Brain Injury) ([facility]) - 05/06/2022 History of Depression - 05/06/2022 Migraine With Aura, Not Intractable, Without Status Migrainosus - 05/06/2022 Comment: October 27, 2024 Has been prescribed Rizatriptan in the past. Recommend avoiding during . Discussed Magnesium 400 mg per day for headache prevention and to notify if migraines are becoming an issue. Alli Forrester APRN.ENROUTE CONTROLLER Bmi 29.0-29.9,Adult - 05/06/2022 Social History Tobacco Use Smoking status: Never Smokeless tobacco: Never Vaping Use Vaping status: Never Used Substance Use Topics Alcohol use: Not Currently Comment: rare alcohol use, not while Drug use: Never Review of Systems HENT: Positive for congestion, postnasal drip, sinus pressure and sinus pain. Respiratory: (more content not included)... Normal [facility] CNOVon 02-20-2025 CNOV Office Visit ([facility]WSTR) ---- HOWARD DONALD ([id number]) 03 F [facility] Date Time Provider Department 02/20/25 9:30 AM CHRIS ALFORD UCWSTR During your visit today, we recorded the following information about you: Temperature Pulse Respiration Blood pressure 98.6 degrees 101/minute 18/minute 110/66 Weight 87.3 kg Chris Alford PA-C 02/20/2025 9:50 AM Signed This note was created using 2Peer (Qlipso)riter. Subjective Howard Donald is a 20 year [...] Diagnosis:Acute URI [J06.9] Order(s):STREP A MOLECULAR (POC) [0419483] Order #: [id number]. #:[id number] Prescriptions as of 02/20/2025 - triamcinolone (KENALOG) [...] first trimeste*10/13 (more content not included)... Normal [facility] STREP A MOLECULAR (POC)on Procedural Control Valid [facility] Strep A (POCT) Negative Negative [facility] Examination level ultrasound on 01-21-2025 Indication Standard [...] 15 oz EFW by: Hadlock (HC-AC-FL) Extended Director Of Research And Development 6.3 mm CM 5.9 mm 75% Nicolaides [...] normal LVOT view: normal 3-vessel view: normal 5-tfjncx-hjdpeei view: normal Heart / Thorax Situs: situs [...] Read By: Pinky Purdy M.D. MATERNAL MEDICINE [facility] Radiology Study observation (narrative) [facility] CBC W Auto Differential pane l (Bld)on 12-29-2024 Basophils (Bld) [#/Vol] 10*3/uL Normal <0.11 [facility] Comment on above: Order Comment: Speci men Type: BLOOD SPECIMEN [facility] Address: [address] [place] [address] Performed By: #### 5 7021-8 #### [facility] CLIA [id number] [address] [place] [address] [place] [address] [place] Basophils/100 WBC (Bld) 0.2 % Normal [facility] Comment on above: Order Comment: Speci men Type: BLOOD SPECIMEN [facility] Address: [address] [place] [address] Performed By: #### 5 7021-8 #### [facility] CLIA [id number] [address] [place] [address] [place] Differential cell count method Nom (Bld) Auto Normal [facility] Comment on above: Order Comment: Speci men Type: BLOOD SPECIMEN [facility] Address: [address] [place] [address] Performed By: #### 5 7021-8 #### [facility] CLIA [id number] [address] [place] [address] [place] Eosinophils (Bld) [#/Vol] 0.06 10*3/uL Normal <0.46 [facility] Comment on above: Order Comment: Speci men Type: BLOOD SPECIMEN [facility] Address: [address] [place] [address] Performed By: #### 5 7021-8 #### [facility] CLIA [id number] [address] [place] [address] [place] Eosinophils/100 WBC (Bld) 0.6 % Normal [facility] Comment on above: Order Comment: Speci men Type: BLOOD SPECIMEN [facility] Address: [address] [place] [address] Performed By: #### 5 7021-8 #### [facility] CLIA [id number] [address] [place] [address] [place] Erythrocyte distribution width (RBC) [Ratio] 13.6 % Normal 11.5-15.0 [facility] Comment on above: Order Comment: Speci men Type: BLOOD SPECIMEN [facility] Address: [address] [place] [address] Performed By: #### 5 7021-8 #### [facility] CLIA [id number] [address] [place] [address] [place] Hematocrit (Bld) [Volume fraction] 36.9 % Normal 36.0-46.0 [facility] Comment on above: Order Comment: Speci men Type: BLOOD SPECIMEN [facility] Address: [address] [place] [address] Performed By: #### 5 7021-8 #### [facility] CLIA [id number] [address] [place] [address] [place] Hemoglobin (Bld) [Mass/Vol] 12.1 g/dL Normal 11.5-15.5 [facility] Comment on above: Order Comment: Speci men Type: BLOOD SPECIMEN [facility] Address: [address] [place] [address] Performed By: #### 5 7021-8 #### [facility] CLIA [id number] [address] [place] [address] [place] Immature granulocytes (Bld) [#/Vol] 0.06 10*3/uL Normal <0.10 [facility] Comment on above: Order Comment: Speci men Type: BLOOD SPECIMEN [facility] Address: [address] [place] [address] Performed By: #### 5 7021-8 #### [facility] CLIA [id number] [address] [place] [address] [place] Immature granulocytes/100 WBC (Bld) 0.6 % Normal [facility] Comment on above: Order Comment: Speci men Type: BLOOD SPECIMEN [facility] Address: [address] [place] [address] Performed By: #### 5 7021-8 #### [facility] CLIA [id number] [address] [place] [address] [place] Lymphocytes (Bld) [#/Vol] 1.77 10*3/uL Normal 1.00-4.0 0 [facility] Comment on above: Order Comment: Speci men Type: BLOOD SPECIMEN [facility] Address: [address] [place] [address] Performed By: #### 5 7021-8 #### [facility] CLIA [id number] [address] [place] [address] [place] Lymphocytes/100 WBC (Bld) 18.6 % Normal [facility] Comment on above: Order Comment: Speci men Type: BLOOD SPECIMEN [facility] Address: [address] [place] [address] Performed By: #### 5 7021-8 #### [facility] CLIA [id number] [address] [place] [address] [place] MCH (RBC) [Entitic mass] 28.7 pg Normal 26.0-34.0 [facility] Comment on above: Order Comment: Speci men Type: BLOOD SPECIMEN Ordering Facility: [facility] Address: [address] [place] [address] Performed By: #### 5 7021-8 #### [facility] CLIA [id number] [address] [place] [address] [place] MCHC (RBC) [Mass/Vol] 32.8 g/dL Normal 30.5-36.0 [facility] Comment on above: Order Comment: Speci men Type: BLOOD SPECIMEN Ordering Facility: [facility] Address: [address] [place] [address] Performed By: #### 5 7021-8 #### [facility] CLIA [id number] [address] [place] [address] [place] MCV (RBC) [Entitic vol] 87.6 fL Normal 80.0-100.0 [facility] Comment on above: Order Comment: Speci men Type: BLOOD SPECIMEN Ordering Facility: [facility] Address: [address] [place] [address] Performed By: #### 5 7021-8 #### [facility] CLIA [id number] [address] [place] [address] [place] Monocytes (Bld) [#/Vol] 0.52 10*3/uL Normal <0.87 [facility] Comment on above: Order Comment: Speci men Type: BLOOD SPECIMEN Ordering Facility: [facility] Address: [address] [place] [address] Performed By: #### 5 7021-8 #### [facility] CLIA [id number] [address] [place] [address] [place] Monocytes/100 WBC (Bld) 5.5 % Normal [facility] Comment on above: Order Comment: Speci men Type: BLOOD SPECIMEN Ordering Facility: [facility] Address: [address] [place] [address] Performed By: #### 5 7021-8 #### [facility] CLIA [id number] [address] [place] [address] [place] Neutrophils (Bld) [#/Vol] 7.10 10*3/uL Normal 1.45-7.5 0 [facility] Comment on above: Order Comment: Speci men Type: BLOOD SPECIMEN Ordering Facility: [facility] Address: [address] [place] [address] Performed By: #### 5 7021-8 #### [facility] CLIA [id number] [address] [place] [address] [place] Neutrophils/100 WBC (Bld) 74.5 % Normal [facility] Comment on above: Order Comment: Speci men Type: BLOOD SPECIMEN Ordering Facility: [facility] Address: [address] [place] [address] Performed By: #### 5 7021-8 #### [facility] CLIA [id number] [address] [place] [address] [place] Nucleated RBC (Bld) [#/Vol] 10*3/uL Normal <0.01 [facility] Comment on above: Order Comment: Speci men Type: BLOOD SPECIMEN Ordering Facility: [facility] Address: [address] [place] [address] Performed By: #### 5 7021-8 #### [facility] CLIA [id number] [address] [place] [address] [place] Nucleated RBC/100 WBC (Bld) [Ratio] 0.0 /100 WBC Normal [facility] Comment on above: Order Comment: Speci men Type: BLOOD SPECIMEN Ordering Facility: [facility] Address: [address] [place] [address] Performed By: #### 5 7021-8 #### [facility] CLIA [id number] [address] [place] [address] [place] Platelet mean volume (Bld) [Entitic vol] 9.8 fL Normal 9.0-12.7 [facility] Comment on above: Order Comment: Speci men Type: BLOOD SPECIMEN Ordering Facility: [facility] Address: [address] [place] [address] Performed By: #### 5 7021-8 #### [facility] CLIA [id number] [address] [place] [address] [place] Platelets (Bld) [#/Vol] 293 10*3/uL Normal 150-400 [facility] Comment on above: Order Comment: Speci men Type: BLOOD SPECIMEN Ordering Facility: [facility] Address: [address] [place] [address] Performed By: #### 5 7021-8 #### [facility] CLIA [id number] [address] [place] [address] [place] RBC (Bld) [#/Vol] 4.21 10*6/uL Normal 3.90-5.20 [facility] Comment on above: Order Comment: Speci men Type: BLOOD SPECIMEN Ordering Facility: [facility] Address: [address] [place] [address] Performed By: #### 5 7021-8 #### [facility] IA [id number] [address] [place] [address] [place] WBC (Bld) [#/Vol] 9.53 10*3/uL Normal 3.70-11.00 [facility] Comment on above: Order Comment: Speci men Type: BLOOD SPECIMEN Ordering Facility: [facility] Address: [address] [place] [address] Performed By: #### 5 7021-8 #### [facility] CLIA [id number] [address] [place] [address] [place] CNOVon 12-29-2024 CNOV Office Visit (FAMPWS) ---- DEREKDARYLHOWARD ([id number]) 03 [facility] Date Time Provider Department 12/29/24 10:40 AM [facility] During your visit today, we recorded the following information about you: Pulse Blood pressure Weight Height 90/minute 98/58 82.7 kg 1.67 m Donte Singleton MD 12/29/2024 11:54 AM Signed Chief [...] Migraines TBI (traumatic brain injury) ([facility]) 2019 fall down stairs Vasovagal syncope Previous [...] No history of dysuria, frequency or incontinence 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 Normal [facility] Comprehensive metabolic 2000 panelon 12-29-2024 Albumin [Mass/Vol] 4.0 g/dL Normal 3.9-4.9 [facility] Comment on above: Order Comment: Speci men Type: BLOOD SPECIMENOrdering Facility: [facility] Address: [address] [place] [address] Performed By: #### 2 4323-8, LIPNF ####[facility] [id number] [place] [address] [place] ALP [Catalytic activity/Vol] 62 U/L Normal 34-123 [facility] Comment on above: Order Comment: Speci men Type: BLOOD SPECIMENOrdering Facility: [facility] Address: [address] [place], [place] [address] Performed By: #### 2 4323-8, LIPNF ####[facility] [id number] [place] [id number] [place] ALT [Catalytic activity/Vol] 14 U/L Normal 7-38 [facility] Comment on above: Order Comment: Speci men Type: BLOOD SPECIMENOrdering Facility: [facility] Address: [address] [place], [place] [address] Performed By: #### 2 4323-8, LIPNF ####[facility] [id number] [place] [address] [place] Anion gap [Moles/Vol] 11 mmol/L Normal 8-15 [facility] Comment on above: Order Comment: Speci men Type: BLOOD SPECIMENOrdering Facility: [facility] Address: [address] [place] [address] Performed By: #### 2 4323-8, LIPNF ####[facility] [id number] [place] [address] [place] AST [Catalytic activity/Vol] 16 U/L Normal 13-35 [facility] Comment on above: Order Comment: Speci men Type: BLOOD SPECIMENOrdering Facility: [facility] Address: [address] [place], [place] [address] Performed By: #### 2 4323-8, LIPNF ####[facility] [id number] [place] [address] [place] Bilirubin [Mass/Vol] mg/dL Low 0.2-1.3 [facility] Comment on above: Order Comment: Speci men Type: BLOOD SPECIMENOrdering Facility: [facility] Address: [address] [place], [place] [address] Performed By: #### 2 4323-8, LIPNF ####[facility] [id number] [place] [address] [place] Calcium [Mass/Vol] 9.5 mg/dL Normal 8.5-10.2 [facility] Comment on above: Order Comment: Speci men Type: BLOOD SPECIMENOrdering Facility: [facility] Address: [address] [place] [address] Performed By: #### 2 4323-8, LIPNF ####[facility]IA [id number] [facility] [place] [address] [place] Chloride [Moles/Vol] 104 mmol/L Normal 98-107 [facility] Comment on above: Order Comment: Speci men Type: BLOOD SPECIMENOrdering Facility: [facility] Address: [address] [place] [address] Performed By: #### 2 4323-8, LIPNF ####[facility]IA [id number] [place] [address] [place] CO2 [Moles/Vol] 21 mmol/L Low 22-30 [facility] Comment on above: Order Comment: Speci men Type: BLOOD SPECIMENOrdering Facility: [facility] Address: [address] [place] [address] Performed By: #### 2 4323-8, LIPNF ####[facility]IA [id number] [facility] [place] [address] [place] Creatinine [Mass/Vol] 0.46 mg/dL Low 0.58-0.96 [facility] Comment on above: Order Comment: Speci men Type: BLOOD SPECIMENOrdering Facility: [facility] Address: [address] [place], [place] [address] Performed By: #### 2 4323-8, LIPNF ####[facility]CLIA [id number] [facility] [place] [address] [place] Creatinine and Glomerular filtration rate.predicted panel (S/P/Bld) 140 mL/min/1.73m??? Normal >=60 [facility] Comment on above: Order Comment: Kacie euceda Type: BLOOD SPECIMENOrdering Facility: [facility] Address: [address] [place] [address] Result Comment: Kirsten mated Glomerular Filtration Rate [...] GFR. Performed By: #### 2 4323-8, LIPNF ####[facility]CLIA [id number] [place] [address] [place] Glucose [Mass/Vol] 78 mg/dL Normal 74-99 [facility] Comment on above: Order Comment: Kacie euceda Type: BLOOD SPECIMENOrdering Facility: [facility] Address: [address] [place] [address] Result Comment: The [place] Diabetes Association (ADA) provides guidance for cutoff [...] Standards of Medical Care in Diabetes 2016, [place] [employer]. Diabetes Care. 2016.39(Suppl 1). Performed By: #### 2 4323-8, LIPNF ####[facility] [id number] [place] [address] [place] Potassium [Moles/Vol] 4.3 mmol/L Normal 3.7-5.1 [facility] Comment on above: Order Comment: Kacie euceda Type: BLOOD SPECIMENOrdering Facility: [facility] Address: [address] [place] [address] Performed By: #### 2 4323-8, LIPNF ####[facility]CLIA [id number] [place] [address] [place] Protein [Mass/Vol] 6.8 g/dL Normal 6.3-8.0 [facility] Comment on above: Order Comment: Speci men Type: BLOOD SPECIMENOrdering Facility: [facility] Address: [address] [place] [address] Performed By: #### 2 4323-8, LIPNF ####[facility]CLIA [id number] [place] [address] [place] Sodium [Moles/Vol] 136 mmol/L Normal 136-144 [facility] Comment on above: Order Comment: Speci men Type: BLOOD SPECIMENOrdering Facility: [facility] Address: [address] [place] [address] Performed By: #### 2 4323-8, LIPNF ####[facility]CLIA [id number] [place] [address] [place] Urea nitrogen [Mass/Vol] 6 mg/dL Low 7-21 [facility] Comment on above: Order Comment: Speci men Type: BLOOD SPECIMENOrdering Facility: [facility] Address: [address] [place] [address] Performed By: #### 2 4323-8, LIPNF ####[facility]CLIA [id number] [place] [address] [place] LIPID PANEL, NONFASTINGon Cholesterol [Mass/Vol] 184 mg/dL Normal <200 [facility] Comment on above: Order Comment: Speci men Type: BLOOD SPECIMENOrdering Facility: [facility] Address: [address] [place] [address] Result Comment: <200 mg/dL, Desirable 200-239 mg/dL, Borderline high >239 mg/dL, High Performed By: #### 2 4323-8, LIPNF ####[facility]CLIA [id number] [facility] [id number] [address] [place] [facility] [place] HDL CHOLESTEROL, NF 62 mg/dL Normal >39 [facility] Comment on above: Order Comment: Speci men Type: BLOOD SPECIMENOrdering Facility: [facility] Address: [address] [place] [address] Result Comment: 40-5 9 mg/dL, Acceptable >59 mg/dL, High: Negative risk factor for coronary heart disease <40 mg/dL, Low: Positive risk factor for coronary heart disease Performed By: #### 2 4323-8, LIPNF ####[facility]CLIA [id number] [address] LDL CHOLESTEROL, NF 104 mg/dL High <100 [facility] Comment on above: Order Comment: Speci [facility] Type: BLOOD SPECIMENOrdering Facility: [facility] Address: [address] [place] [address] Result Comment: <100 mg/dL, Optimal 100-129 mg/dL, Near optimal/above optimal 130-159 mg/dL, Borderline high 160-189 mg/dL, High >189 mg/dL, Very high Secondary prevention optimal LDL Cholesterol levels are recommended to be < 70 mg/dL Performed By: #### 2 4323-8, LIPNF ####[facility]CLIA [id number] [address] OF [facility] LDL/HDL RATIO, NF 1.68 mg/dL Normal <2.54 [facility] Comment on above: Order Comment: Speci [facility] Type: BLOOD SPECIMENOrdering Facility: [facility] Address: [address] [place] [address] Result Comment: Refe tay: 1. National Cholesterol Education Program ATP III Guideline At-A-Glance Quick Desk Reference: National Heart, Lung, and Blood [place]. National Institutes of Health. 2001: NIH Publication [...] and Adolescents: National Heart, Lung and Blood [place]. Pediatrics. 2011:128(Suppl 5):I622-662. Performed By: #### 2 4323-8, LIPNF ####[facility]CLIA [id number] [place] [id number] [place] NON HDL CHOL, NF 122 mg/dL Normal <130 [facility] Comment on above: Order Comment: Speci ok Type: BLOOD SPECIMENOrdering Facility: [facility] Address: [address] [place] [address] Result Comment: <130 mg/dL, Optimal 130-159 mg/dL, Near optimal/above optimal 160-189 mg/dL, Borderline high 190-219 mg/dL, High >219 mg/dL, Very high Secondary prevention optimal non HDL Cholesterol levels are recommended to be <100 mg/dL Performed By: #### 2 4323-8, LIPNF ####[facility]CLIA [id number] [address] [place] T CHOL/HDL RATIO NF 2.97 mg/dL Normal <5.10 [facility] Comment on above: Order Comment: Kacie euceda Type: BLOOD SPECIMENOrdering Facility: [facility] Address: [address] [place] [address] Performed By: #### 2 4323-8, LIPNF ####[facility]CLIA [id number] [place] [id number] [place] TRIGLYCERIDES, NF 92 mg/dL Normal <150 [facility] Comment on above: Order Comment: Kacie euceda Type: BLOOD SPECIMENOrdering Facility: [facility] Address: [address] [place] [address] Result Comment: <150 mg/dL, Normal 150-199 mg/dL, Borderline high 200-499 mg/dL, High >499 mg/dL, Very high Performed By: #### 2 4323-8, LIPNF ####[facility]CLIA [id number] [place] [address] [place] VLDL CHOLESTEROL, NF 18 mg/dL Normal <30 [facility] Comment on above: Order Comment: Speci men Type: BLOOD SPECIMENOrdering Facility: [facility] Address: [address] [place] [address] Performed By: #### 2 4323-8, LIPNF ####[facility]CLIA [id number] [place] [address] [place] BACTERIAL VAGINOSIS NAATon 0 12-27-2024 Lactobacillus crispatus+gasseri+jenseni i + Gardnerella vaginalis + Atopobium vaginae rRNA LUCIA+probe Ql (Vag fld) Not detected Normal Not detected [facility] Comment on above: Order Comment: Speci men Type: SWABOrdering Facility: [facility] Address: [address] [place] [address] Performed By: #### C VTV, BVAMP ####[facility]CLIA [id number] [place] [address] [place] JIM/TRICHOMONAS NAATon 0 12-27-2024 C. glabrata RNA LUCIA+probe Ql (Vag fld) Not detected Normal Not detected [facility] Comment on above: Order Comment: Speci men Type: SWABOrdering Facility: [facility] Address: [address] [place] [address] Performed By: #### C VTV, BVAMP ####[facility]CLIA [id number] [place] [address] [place] Jim sp DNA LUCIA+probe Ql (Vag fld) Not detected Normal Not detected [facility] Comment on above: Order Comment: Speci men Type: SWABOrdering Facility: [facility] Address: [address] [place] [address] Result Comment: The Jim species group target includes C. albicans, C. tropicalis, C. parapsilosis, and C. dubliniensis. Performed By: #### C VTV, BVAMP ####[facility]IA [id number] [address] OF [facility] T. vaginalis DNA LUCIA+probe Ql (Unsp spec) Not detected Normal Not detected [facility] Comment on above: Order Comment: Speci men Type: SWABOrdering Facility: [facility] Address: [address] [place] [address] Performed By: #### C VTV, BVAMP ####[facility]CLIA [id number] [address] OF [place] CNOVon 12-27-2024 CNOV Office Visit (OBGYWM) ---- DEREKDARYLHOWARD ([id number]) 03 [facility] Date Time Provider Department 12/27/24 8:40 AM CLARE FRANK OBGYWM During your visit today, we recorded the following information about you: Blood pressure Weight 98/60 82.9 kg Clare Frank MD 12/27/2024 9:29 AM 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 Howard Raul Odilon is [...] Living0 SAB0 IAB0 Ectopic0 Multiple0 Live Births0 Machine Biller History LMP: 08/31/2024, Age at Menarche: 11 Age at First : 19 Age at Menopause: Machine Biller History Comments: Sexual Activity: Yes; Male; Not asked Contraception: No contraception data on record PAST MEDICAL HISTORY Diagnosis Date Depression GERD (gastroesophageal reflux disease) 09/10/2023 Migraines TBI (traumatic brain injury) ([facility]) 2019 PAST SURGICAL HISTORY Procedure Laterality Date [...] discussed with the Patient or Patient's Authorized Clean Up Person. As applicable, any other physician, advance practice provider, medical student, or other health professional student that will be observing or involved in the sensitive examination for educational or training purposes was discussed with the Patient or Authorized Clean Up Person. The Patient or Authorized Clean Up Person has agreed to proceed with the sensitive examination. (Sensitive examination includes inspection and/or palpation of the breasts, pelvis, prostate and anorectal regions). EXAM: BP 98/60 Wt 182 lb 12.8 oz (82.9kg) LMP 08/31/2024 GENERAL: pleasant, female in no apparent distress HEENT: Normocephalic and atraumatic CHEST: Normal inspiratory effort PELVIC: external genitalia normal, normal Bartholin's glands, urethra, John Sevier's glands, no vulvar lesions, no cervical lesions, [...] to h (more content not included)... Normal [facility] CNOVon 12-15-2024 CNOV Office Visit (FAMPWS) ---- HOWARD DONALD ([id number]) 03 F [facility] Date Time Provider Department 12/15/24 8:00 AM [...] limited ER Follow Up.. Patient evaluated at [facility] ED on 12/02 for asthma exacerbation, postnasal [...] Migraines TBI (traumatic brain injury) ([facility]) 2019 Previous Surgical History PAST SURGICAL HISTORY [...] asthma a (more content not included)... Normal [facility] CNPNon 12-02-2024 CNPN Telephone (OBGYWM) ---- HOWARD DONALD ([id number]) 03 F [facility] Date Time Provider Department 12/02/24 TATI BOWLES [...] Status:Closed by MANDY PEARL on 12/02/24 Normal [facility] Chest PA and Lateralon 12-02 Chest PA and Lateral [facility] Imaging Services [address] [place] [address] [id number] Chest PA and Lateral MR#: [id number] Acct: [id number] Name: HOWARD DONALD Rep #: [id number] : 2005 F 19 From: Emiliano ely MD PCP: Kim Ward Status: REG ER Study: Chest PA and Lateral Date of Exam: 12/02/24 Exam# [id number] Ordering Dr: Rick Rodrigues MD PROCEDURE: CHEST PA AND LATERAL REASON FOR EXAM: Shortness of breath. The patient is 13 weeks . Adequate shielding was obtained. TECHNIQUE: PA and lateral chest radiographs were obtained. COMPARISON: December 30, 2023. FINDINGS: The heart is nonenlarged. The lungs are clear. Scattered calcified granulomas. RAD/Chest PA and Lateral IMPRESSION: No acute abnormality is seen. Reading Location: [id number] CC: Dr. Rick Rodrigues MD; Kim Ward Die Operator: Signed Normal [facility] Emergency Department Summary on 12-02-2024 Emergency Department Summary [facility] Medical Records Department [address] [place] [address] Emergency Department Summary 12/02/24 MR#: [id number] Acct: [id number] Name: HOWARD DONALD LOR[place]INE Rep #: [id number] : 2005 19 From: Rick Rodrigues MD [...] normal he (more content not included)... Normal [facility] M100.678on 12-02-2024 M100.678 SARS-CoV-2 (COVID 19) Negative INFLUENZA A Negative INFLUENZA B Negative RSV PCR Negative Normal [facility] Comment on above: Performed By: #### M 100.678 #### [facility] [address] [place], [place], [id number] Examination level ultrasound on 11-26-2024 Indication First trimester anatomic survey Impression The patient is referred for a first trimester anatomy scan including nuchal translucency measurement as clinically indicated. - Single, live, intrauterine . - [place] rump length measurement is consistent with the [...] view: normal 4-chamber view with color: normal [id number]-ckrmmnv view: normal Abdominal cord insertion: normal Stomach: [...] Read By: Lynn Oglesby M.D. MATERNAL MEDICINE [facility] Radiology Study observation (narrative) [facility] [id number] PLUSon 11-15-2024 Cell-free DNA./Cell-free DNA.total Dosage of chromosome-specific cfDNA (cfDNA) [Molar fraction] 34% Normal [facility] Comment on above: Order Comment: Speci men Type: BLOOD SPECIMENOrdering Facility: [facility] Address: [address] [place] [address] Performed By: #### M AT21 ####[facility] LABCLIA [id number] [place] [address] Chr 13+18+21+X+Y aneuploidy Dosage of chromosome-specific cfDNA Ql (cfDNA) Negative Normal [facility] Comment on above: Order Comment: Speci men Type: BLOOD SPECIMENOrdering Facility: [facility] Address: [address] [place] [address] Performed By: #### M AT21 ####[facility] LABCLIA [id number] [place] [address] Chr 21 trisomy Dosage of chromosome-specific cfDNA Ql (cfDNA) Negative Normal [facility] Comment on above: Order Comment: Speci men Type: BLOOD SPECIMENOrdering Facility: [facility] Address: [address] [place] [address] Performed By: #### M AT21 ####[facility] LABCLIA [id number] [place] [address] Chr X and Y aneuploidy risk Sequencing Ql (cfDNA) [Interp] Not detected Normal [facility] Comment on above: Order Comment: Speci men Type: BLOOD SPECIMENOrdering Facility: [facility] Address: [address] [place] [address] Result Comment: Not Detected Not Detected Performed By: #### M AT21 ####[facility] LABCLIA [id number] [place] [address] Citation Tutu (Reference lab test) Comment Normal [facility] Comment on above: Order Comment: Speci men Type: BLOOD SPECIMENOrdering Facility: [facility] Address: [address] [place] [address] Result Comment: 1. P bo CHOI, et al. Ca Med. 2012;14(3):296-305. 2. Ronaldo BARRON, et al. Prenat Diag. 2013;33(6):591-597. 3. Adrian Machado, et al. Clin Chem. 2015 Apr;61(4):608-616. 4. Gurmeet CHOI, et al. Ca Med. 2011;13(11):913-920. 5. ACOG/SMFM Practice Bulletin No. 226, Jul 2020. Performed By: #### M AT21 ####[facility] LABCLIA [id number] [place] [address] Gestational age Estimated from conception date Waldron Normal [facility] Comment on above: Order Comment: Speci men Type: BLOOD SPECIMENOrdering Facility: [facility] Address: [address] [place] [address] Performed By: #### M AT21 ####[facility] LABCLIA [id number] [place] [address] GESTATIONALAGE AGE > OR = 9W Yes Normal [facility] Comment on above: Order Comment: Speci men Type: BLOOD SPECIMENOrdering Facility: [facility] Address: [address] [place] [address] Performed By: #### M AT21 ####[facility] LABCLIA [id number] [place] [address] Laboratory comment Tutu (Report) Comment Normal [facility] Comment on above: Order Comment: Speci men Type: BLOOD SPECIMENOrdering Facility: [facility] Address: [address] [place] [address] Result Comment: The MaterniT(R) 21 PLUS laboratory-developed test (LDT) analyzes circulating cell-free DNA from a maternal blood sample. This test is used for screening purposes and not diagnostic. Clinical correlation is recommended. Validation data on twin pregnancies is limited and the ability of this test to detect aneuploidy in higher multiple gestations has not yet been validated. Performed By: #### M AT21 ####DIATEM NetworksIA [id number] [place] [id number] director of market analysis name Nom (Provider) Comment Normal [facility] Comment on above: Order Comment: Speci ok Type: BLOOD SPECIMENOrdering Facility: [facility] Address: [address] [place] [address] Result Comment: This specimen showed an expected representation of chromosome 21, 18 and 13 material. Clinical correlation is suggested. Comment Elmer Kelly MD, PhD, Director, [facility] Performed By: #### M AT21 ####[employer] LABBioparaisoIA [id number] [place] [id number] LIMITATIONS OF THE TEST Comment Normal [facility] Comment on above: Order Comment: Sami ok Type: BLOOD SPECIMENOrdering Facility: [facility] Address: [address] [place] [address] Result Comment: Javier correa the results of [...] and Fragmin(R)). Performed By: #### M AT21 ####[facility] LABCLIA [id number] [facility] [place] [address] Monosomy X risk Dosage of chromosome-specific cfDNA Ql (Plasma cell-free+WBC DNA) [Interp] Not detected Normal [facility] Comment on above: Order Comment: Speci men Type: BLOOD SPECIMENOrdering Facility: [facility] Address: [address] [place] [address] Performed By: #### M AT21 ####[employer] LABBioparaisoIA [id number] [place] [address] NEGATIVE PREDICTIVE VALUE Note Normal [facility] Comment on above: Order Comment: Sami men Type: BLOOD SPECIMENOrdering Facility: [facility] Address: [address] [place] [address] Result Comment: The Negative Predictive Value (NPV) for trisomy 21, 18, and 13 is greater than 99%. The NPV for SCA and ESS cannot be calculated as SCA and ESS are only reported when an abnormality is detected. Performed By: #### M AT21 ####[employer] LABBioparaisoIA [id number] [place] [address] PERFORMANCE CHARACTERISTICS Note Normal [facility] Comment on above: Order Comment: Kacie euceda Type: BLOOD SPECIMENOrdering Facility: [facility] Address: [address] [place] [address] Result Comment: ! Sex ! Accuracy: 99.4% [...] gestation only. Performed By: #### M AT21 ####[employer] LABBioparaisoIA [id number] [place] [address] POSITIVE PREDICTIVE VALUE N/A Normal [facility] Comment on above: Order Comment: Speci men Type: BLOOD SPECIMENOrdering Facility: [facility] Address: [address] [place] [address] Performed By: #### M AT21 ####[employer] [facility] LABCLIA [id number] [place] [address] Reference Lab Test Method Comment Normal [facility] Comment on above: Order Comment: Speci men Type: BLOOD SPECIMENOrdering Facility: [facility] Address: [address] [place] [address] Result Comment: See Notes Circulating cell-free DNA [...] and 22. Performed By: #### M AT21 ####[employer] [id number] [place] [address] Service comment (Unsp spec) [Interp] Comment Normal [facility] Comment on above: Order Comment: Speci men Type: BLOOD SPECIMENOrdering Facility: [facility] Address: [address] [place] [address] Result Comment: See Notes [employer] is a subsidiary of [employer], using the brand [employer]. This test was developed and its performance characteristics determined by [employer]. It has not been cleared or approved by the Food and Drug Administration. This laboratory is certified under the Clinical Laboratory Improvement Amendments (CLIA) as qualified to perform high complexity clinical laboratory testing and accredited by the [employer] (CAP). If there is future clinical need for adding MaterniT GENOME testing, this specimen will be available until term. [facility] samples will not be retained beyond 60 days. [facility] patients will have to send a new sample for re-sequencing ([facility] Test Code: [id number]). Performed By: #### M AT21 ####[facility] LABCLIA [id number] [place] [address] Sex Dosage of chromosome-specific cfDNA Nom (cfDNA) Comment Normal [facility] Comment on above: Order Comment: Speci men Type: BLOOD SPECIMENOrdering Facility: [facility] Address: [address] [place] [address] Result Comment: Cons istent with Male Performed By: #### M AT21 ####[facility] LABCLIA [id number] [place] [address] Test performance information Tutu (Unsp spec) Comment Normal [facility] Comment on above: Order Comment: Speci men Type: BLOOD SPECIMENOrdering Facility: [facility] Address: [address] [place] [address] Result Comment: The performance characteristics of the MaterniT(R) 21 PLUS laboratory-developed test (LDT) have been determined in a clinical validation study with women at increased risk for chromosomal aneuploidy.[1-4] Performed By: #### M AT21 ####[facility] LABCLIA [id number] [place] [address] Trisomy 13 risk Dosage of chromosome-specific cfDNA Ql (cfDNA) [Interp] Negative Normal [facility] Comment on above: Order Comment: Speci men Type: BLOOD SPECIMENOrdering Facility: [facility] Address: [address] [place] [address] Performed By: #### M AT21 ####[facility] LABCLIA [id number] [place] [address] Trisomy 18 risk Dosage of chromosome-specific cfDNA Ql (Plasma cell-free+WBC DNA) [Interp] Negative Normal [facility] Comment on above: Order Comment: Speci men Type: BLOOD SPECIMENOrdering Facility: [facility] Address: [address] [place] [address] Performed By: #### M AT21 ####[facility] LABCLIA [id number] [place] [address] Gutierrez 11-10-2024 LUCIE Telephone (OBGYWM) ---- HOWARD DONALD ([id number]) 03 F [facility] Date Time Provider Department 11/10/24 NICKY CONNELL [...] Date Reviewed: 10/27/2024 Reviewed by: Alli Forrester APRN.ENROUTE CONTROLLER - Fully Assessed Reason for Visit: Question [...] Status:Closed by INESSA SAMS on 11/10/24 Normal [facility] CARRIER SCREEN, STANDARDon 0 11-05-2024 CARRIER SCREEN RESULTS View results in Scanned Documents link when available. Normal [facility] Comment on above: Order Comment: Speci men Type: BLOOD SPECIMEN [facility] Address: [address] [place] [address] Performed By: #### L [id number] #### [facility] CLIA [id number] [address] [place] [address] [place] CBC W Auto Differential pane l (Bld)on 11-05-2024 Basophils (Bld) [#/Vol] 0.03 10*3/uL Normal <0.11 [facility] Comment on above: Order Comment: Speci men Type: BLOOD SPECIMEN [facility] Address: [address] [place] [address] Performed By: #### L [id number] #### [facility] CLIA [id number] [address] [place] [address] [place] Basophils/100 WBC (Bld) 0.5 % Normal [facility] Comment on above: Order Comment: Speci men Type: BLOOD SPECIMEN [facility] Address: [address] [place] [address] Performed By: #### L [id number] #### [facility] CLIA [id number] [address] [place] [address] [place] Differential cell count method Nom (Bld) Auto Normal [facility] Comment on above: Order Comment: Speci men Type: BLOOD SPECIMEN [facility] Address: [address] [place] [address] Performed By: #### L [id number] #### [facility] CLIA [id number] [address] [place] [address] [place] Eosinophils (Bld) [#/Vol] 0.05 10*3/uL Normal <0.46 [facility] Comment on above: Order Comment: Speci men Type: BLOOD SPECIMEN [facility] Address: [address] [place] [address] Performed By: #### L [id number] #### [facility] CLIA [id number] [address] [place] [address] [place] Eosinophils/100 WBC (Bld) 0.8 % Normal [facility] Comment on above: Order Comment: Speci men Type: BLOOD SPECIMEN [facility] Address: [address] [place] [address] Performed By: #### L [id number] #### [facility] CLIA [id number] [address] [place] [address] [place] Erythrocyte distribution width (RBC) [Ratio] 12.6 % Normal 11.5-15.0 [facility] Comment on above: Order Comment: Speci men Type: BLOOD SPECIMEN [facility] Address: [address] [place] [address] Performed By: #### L [id number] #### [facility] CLIA [id number] [address] [place] [address] [place] Hematocrit (Bld) [Volume fraction] 36.5 % Normal 36.0-46.0 [facility] Comment on above: Order Comment: Speci men Type: BLOOD SPECIMEN [facility] Address: [address] [place] [address] Performed By: #### L [id number] #### [facility] CLIA [id number] [address] [place] [address] [place] Immature granulocytes (Bld) [#/Vol] 10*3/uL Normal <0.10 [facility] Comment on above: Order Comment: Speci men Type: BLOOD SPECIMEN [facility] Address: [address] [place] [address] Performed By: #### L [id number] #### [facility] CLIA [id number] [address] [place] [address] [place] Immature granulocytes/100 WBC (Bld) 0.3 % Normal [facility] Comment on above: Order Comment: Speci men Type: BLOOD SPECIMEN [facility] Address: [address] [place] [address] Performed By: #### L [id number] #### [facility] CLIA [id number] [address] [place] [address] [place] Lymphocytes (Bld) [#/Vol] 1.38 10*3/uL Normal 1.00-4.0 0 [facility] Comment on above: Order Comment: Speci men Type: BLOOD SPECIMEN [facility] Address: [address] [place] [address] Performed By: #### L [id number] #### [facility] CLIA [id number] [address] [place] [address] [place] Lymphocytes/100 WBC (Bld) 21.5 % Normal [facility] Comment on above: Order Comment: Speci men Type: BLOOD SPECIMEN [facility] Address: [address] [place] [address] Performed By: #### L [id number] #### [facility] CLIA [id number] [address] [place] [address] [place] MCH (RBC) [Entitic mass] 28.4 pg Normal 26.0-34.0 [facility] Comment on above: Order Comment: Speci men Type: BLOOD SPECIMEN [facility] Address: [address] [place] [address] Performed By: #### L [id number] #### [facility] CLIA [id number] [address] [place] [address] [place] MCHC (RBC) [Mass/Vol] 34.0 g/dL Normal 30.5-36.0 [facility] Comment on above: Order Comment: Speci men Type: BLOOD SPECIMEN [facility] Address: [address] [place] [address] Performed By: #### L [id number] #### [facility] CLIA [id number] [address] [place] [address] [place] MCV (RBC) [Entitic vol] 83.5 fL Normal 80.0-100.0 [facility] Comment on above: Order Comment: Speci men Type: BLOOD SPECIMEN [facility] Address: [address] [place] [address] Performed By: #### L [id number] #### [facility] CLIA [id number] [address] [place] [address] [place] Monocytes (Bld) [#/Vol] 0.45 10*3/uL Normal <0.87 [facility] Comment on above: Order Comment: Speci men Type: BLOOD SPECIMEN [facility] Address: [address] [place] [address] Performed By: #### L [id number] #### [facility] CLIA [id number] [address] [place] [address] [place] Monocytes/100 WBC (Bld) 7.0 % Normal [facility] Comment on above: Order Comment: Speci men Type: BLOOD SPECIMEN [facility] Address: [address] [place] [address] Performed By: #### L [id number] #### [facility] CLIA [id number] [address] [place] [address] [place] Neutrophils (Bld) [#/Vol] 4.48 10*3/uL Normal 1.45-7.5 0 [facility] Comment on above: Order Comment: Speci men Type: BLOOD SPECIMEN [facility] Address: [address] [place] [address] Performed By: #### L [id number] #### [facility] CLIA [id number] [address] [place] [address] [place] Neutrophils/100 WBC (Bld) 69.9 % Normal [facility] Comment on above: Order Comment: Speci men Type: BLOOD SPECIMEN [facility] Address: [address] [place] [address] Performed By: #### L [id number] #### [facility] CLIA [id number] [address] [place] [address] [place] Nucleated RBC (Bld) [#/Vol] 10*3/uL Normal <0.01 [facility] Comment on above: Order Comment: Speci men Type: BLOOD SPECIMEN [facility] Address: [address] [place] [address] Performed By: #### L [id number] #### [facility] CLIA [id number] [address] [place] [address] [place] Nucleated RBC/100 WBC (Bld) [Ratio] 0.0 /100 WBC Normal [facility] Comment on above: Order Comment: Speci men Type: BLOOD SPECIMEN [facility] Address: [address] [place] [address] Performed By: #### L [id number] #### [facility] CLIA [id number] [address] [place] [address] [place] Platelet mean volume (Bld) [Entitic vol] 9.9 fL Normal 9.0-12.7 [facility] Comment on above: Order Comment: Speci men Type: BLOOD SPECIMEN [facility] Address: [address] [place] [address] Performed By: #### L [id number] #### [facility] CLIA [id number] [address] [place] [address] [place] Platelets (Bld) [#/Vol] 276 10*3/uL Normal 150-400 [facility] Comment on above: Order Comment: Speci men Type: BLOOD SPECIMEN [facility] Address: [address] [place] [address] Performed By: #### L [id number] #### [facility] CLIA [id number] [address] [place] [address] [place] RBC (Bld) [#/Vol] 4.37 10*6/uL Normal 3.90-5.20 [facility] Comment on above: Order Comment: Speci men Type: BLOOD SPECIMEN [facility] Address: [address] [place] [address] Performed By: #### L [id number] #### [facility] CLIA [id number] [address] [place] [address] [place] WBC (Bld) [#/Vol] 6.41 10*3/uL Normal 3.70-11.00 [facility] Comment on above: Order Comment: Speci men Type: BLOOD SPECIMEN [facility] Address: [address] [place] [address] Performed By: #### L [id number] #### [facility] CLIA [id number] [address] [place] [address] [place] CNCOon 11-05-2024 CNCO Letter Text Normal [facility] HBV surface Ag Ser Qlon 10-14 HBV surface Ag Ql (S) Negative Normal Negative [facility] Comment on above: Order Comment: Speci men Type: BLOOD SPECIMENOrdering Facility: [facility] Address: [address] [place] [address] Performed By: #### 5 195-3, 60365-7, 28141-8 ####[facility] LABCLIA [id number] [place] [address] [place] HCV Ab Ser Qlon 11-05-2024 HCV Ab Ql (S) Negative Normal Negative [facility] Comment on above: Order Comment: Speci men Type: BLOOD SPECIMEN [facility] Address: [address] [place] [address] Result Comment: The result suggests no evidence of active infection with Hepatitis C virus. Should recent infection be suspected, repeat testing may be considered 4-6 weeks after this draw. Performed By: #### L [id number] #### [facility] CLIA [id number] [address] [place] [address] [place] HGB ELECTROPHORESIS FOR EVAL (LAB ORDER)on 11-05-2024 Hemoglobin A (Bld) [Mass fraction] 97.5 % Normal 96.2-98.0 [facility] Comment on above: Order Comment: Speci men Type: BLOOD SPECIMEN [facility] Address: [address] [place] [address] Performed By: #### L [id number] #### [facility] CLIA [id number] [address] [place] [address] [place] Hemoglobin A2 (Bld) [Mass fraction] 2.5 % Normal 2.0-3.1 [facility] Comment on above: Order Comment: Speci men Type: BLOOD SPECIMEN [facility] Address: [address] [place] [address] Performed By: #### L [id number] #### [facility] CLIA [id number] [address] [place] [address] [place] Hemoglobin Unsp Elph (Bld) [Mass fraction] No abnormal hemoglobin identified. Normal No abnormal hemoglobin identified. [facility] Comment on above: Order Comment: Speci men Type: BLOOD SPECIMEN [facility] Address: [address] [place] [address] Performed By: #### L [id number] #### [facility] CLIA [id number] [address] [place] [address] [place] HGB EVALUATION CASCADE INTER Sarbjit 11-05-2024 Hemoglobin pattern (Bld) [Interp] Reviewed by Estephania Edwards M.D., Ph.D Normal [facility] Comment on above: Order Comment: Speci men Type: BLOOD SPECIMEN [facility] Address: [address] [place] [address] Performed By: #### L [id number] #### [facility] CLIA [id number] [address] [place] [address] [place] INTERPRETATION (HGB EVAL) Normal [facility] Comment on above: Order Comment: Speci men Type: BLOOD SPECIMEN [facility] Address: [address] [place] [address] Result Comment: Hemo globins were analyzed by capillary electrophoresis and CBC red cell parameters were reviewed. No abnormal hemoglobin is identified. There is a normal hemoglobin capillary electrophoresis pattern. Performed By: #### L [id number] #### [facility] CLIA [id number] [address] [place] [address] [place] HIV 1+2 Ab IA Qlon 5 HIV 1 and 2 Ab IA.rapid Nom (S/P/Bld) Normal [facility] Comment on above: Order Comment: Speci men Type: BLOOD SPECIMENOrdering Facility: [facility] Address: [address] [place] [address] Result Comment: Test not indicated. Performed By: #### 5 195-3, 44092-5, 85849-9 ####[facility] [id number] [place] [address] [place] HIV 1+2 Ab+HIV1 p24 Ag IA Ql Non-Reactive Normal Nonreactive [facility] Comment on above: Order Comment: Speci men Type: BLOOD SPECIMENOrdering Facility: [facility] Address: [address] [place] [address] Performed By: #### 5 195-3, 00492-9, 14277-9 ####[place] [id number] [place] [address] [place] HIV immunoassay testing algorithm interpretation (S/P/Bld) [Interp] Normal [facility] Comment on above: Order Comment: Speci men Type: BLOOD SPECIMENOrdering Facility: [facility] Address: [address] [place] [address] Result Comment: No e vidence of HIV-1 or HIV-2 infection. Should recent infection be suspected, repeat testing may be considered 2-3 weeks after this draw. [place] Rev. Code 3701.243(E): This information has been [...] or diagnoses. Performed By: #### 5 195-3, 34417-4, 18113-0 ####[facility] [id number] [place] [address] [place] HbA1c (Bld)on 11-05-2024 Average glucose Estimated from glycated hemoglobin (Bld) [Mass/Vol] 85 mg/dL Normal [facility] Comment on above: Order Comment: Speci men Type: BLOOD SPECIMEN [facility] Address: [address] [place] [address] Result Comment: eAG: (Estimated average glucose) is a calculated value from HgbA1c and is risk control representative of the average blood glucose level in the last 2-3 month period. Performed By: #### L [id number] #### [facility] CLIA [id number] [address] [place] [address] [place] HbA1c (Bld) [Mass fraction] 4.6 % Normal 4.3-5.6 [facility] Comment on above: Order Comment: Speci men Type: BLOOD SPECIMEN [facility] Address: [address] [place] [address] Result Comment: Amer [place] Diabetes Association guidelines indicate that patients with HgbA1c in the range 5.7-6.4% are at increased risk for development of diabetes, and intervention by lifestyle modification may be beneficial. HgbA1c greater or equal to 6.5% is considered diagnostic of diabetes. Performed By: #### L [id number] #### [facility] CLIA [id number] [address] [place] [address] [place] RBC PARAMETERS FOR HB IDon 0 - Erythrocyte distribution width (RBC) [Ratio] 12.7 % Normal 11.5-15.0 [facility] Comment on above: Order Comment: Kacie euceda Type: BLOOD SPECIMEN [facility] Address: [address] [place] [address] Performed By: #### L [id number] #### [facility] CLIA [id number] [address] [place] [address] [place] Hematocrit (Bld) [Volume fraction] 38.0 % Normal 36.0-46.0 [facility] Comment on above: Order Comment: Kacie euceda Type: BLOOD SPECIMEN Ordering Facility: [facility] Address: [address] [place] [address] Performed By: #### L [id number] #### [facility] CLIA [id number] [address] [place] [address] [place] Hemoglobin (Bld) [Mass/Vol] 12.4 g/dL Normal 11.5-15.5 [facility] Comment on above: Order Comment: Speci men Type: BLOOD SPECIMEN Ordering Facility: [facility] Address: [address] [place] [address] Performed By: #### L [id number] #### [facility] CLIA [id number] [address] [place] [address] [place] MCH (RBC) [Entitic mass] 28.1 pg Normal 26.0-34.0 [facility] Comment on above: Order Comment: Speci men Type: BLOOD SPECIMEN Ordering Facility: [facility] Address: [address] [place] [address] Performed By: #### L [id number] #### [facility] CLIA [id number] [address] [place] [address] [place] MCHC (RBC) [Mass/Vol] 32.6 g/dL Normal 30.5-36.0 [facility] Comment on above: Order Comment: Speci men Type: BLOOD SPECIMEN Ordering Facility: [facility] Address: [address] [place] [address] Performed By: #### L [id number] #### [facility] CLIA [id number] [address] [place] [address] [place] MCV (RBC) [Entitic vol] 86.0 fL Normal 80.0-100.0 [facility] Comment on above: Order Comment: Speci men Type: BLOOD SPECIMEN Ordering Facility: [facility] Address: [address] [place] [address] Performed By: #### L [id number] #### [facility] CLIA [id number] [address] [place] [address] [place] RBC (Bld) [#/Vol] 4.42 10*6/uL Normal 3.90-5.20 [facility] Comment on above: Order Comment: Speci men Type: BLOOD SPECIMEN Ordering Facility: [facility] Address: [address] [place] [address] Performed By: #### L [id number] #### [facility] CLIA [id number] [address] [place] [address] [place] RUBELLA IGG ANTIBODYon 11-05 RUBELLA IGG AB, QUAL Positive Normal Positive [facility] Comment on above: Order Comment: Speci men Type: BLOOD SPECIMENOrdering Facility: [facility] Address: [address] [place] [address] Result Comment: The result suggests recent or past exposure to Rubella virus or history of Rubella vaccination. Positive result may also be seen due to presence of passively-transferred antibodies. Please correlate with patient's history. Performed By: #### R UBIGG ####[facility] [id number] [place] [address] [place] Reagin and Treponema pallidu m IgG and IgM [Interp]on 11-05-2024 T. pallidum IgG+IgM IA Ql (S) Non-Reactive Normal Nonreactive [facility] Comment on above: Order Comment: Speci [facility] Type: BLOOD SPECIMENOrdering Facility: [facility] Address: [address] [place] [address] Performed By: #### 5 195-3, 57952-6, 99031-6 ####[facility] [id number] [place] [address] [place] Reagin+T pallidum IgG+IgM Se rPl-Impon 11-05-2024 Reagin and Treponema pallidum IgG and IgM [Interp] Cannot exclude recent Treponemal infection if specimen collected within 7-10 days after appearance of suspect lesions or 2-3 weeks after an exposure. Clinical correlation is required. Normal [facility] Comment on above: Order Comment: Speci [facility] Type: BLOOD SPECIMENOrdering Facility: [facility] Address: [address] [place] [address] Performed By: #### 5 195-3, 99817-7, 93781-8 ####[facility] [id number] [place] [address] [place] TYPE + SCREEN PRENATALon ABO A Normal [facility] Comment on above: Order Comment: Speci men Type: BLOOD SPECIMENOrdering Facility: [facility] Address: [address] [place] [address] Performed By: #### T SPN ####[facility] B[facility] BANKCLIA [id number] [place] [address] [place] Rh Nom (Bld) Positive Normal [facility] Comment on above: Order Comment: Speci men Type: BLOOD SPECIMENOrdering Facility: [facility] Address: [address] [place] [address] Performed By: #### T SPN ####[facility] BLOOD BANKCLIA [id number] [place] [address] [place] TYPE AND SCREEN EXPIRATION 11/08/2024 23:59 Normal [facility] Comment on above: Order Comment: Speci men Type: BLOOD SPECIMENOrdering Facility: [facility] Address: [address] [place] [address] Performed By: #### T SPN ####[facility] BLOOD BANKCLIA [id number] [place] [address] [place] Bacteria Ur Culton 5 Bacteria identified Cx Nom (U) ORGANISM ID: 1 >=100,000 CFU/ml Normal urogenital jesenia Normal [facility] Comment on above: Performed By: #### 6 30-4 ####[facility] [id number] [place] [address] [place] C. trachomatis+N. gonorrhoea e DNA LUCIA+probe Ql (Unsp spec)on 10-27-2024 C. trachomatis rRNA LUCIA+probe Ql (Unsp spec) Not detected Normal Not detected [facility] Comment on above: Order Comment: Speci men Type: BLOOD SPECIMEN Ordering Facility: [facility] Address: [address] [place] [address] Performed By: #### L [id number] #### [facility] CLIA [id number] [address] [place] [address] [place] N. gonorrhoeae rRNA LUCIA+probe Ql (Unsp spec) Not detected Normal Not detected [facility] Comment on above: Order Comment: Speci men Type: BLOOD SPECIMEN Ordering Facility: [facility] Address: [address] [place] [address] Performed By: #### L [id number] #### [facility] CLIA [id number] [address] [place] [address] [place] PAP TESTon 10-27-2024 ADEQUACY Satisfactory for interpretation. Normal [facility] Comment on above: Order Comment: Speci men Type: FLUID SPECIMENOrdering Facility: [facility] Address: [address] [place] [address] Performed By: #### L [id number] ####[facility]IA [id number] [place] [address] [place] CASE REPORT Normal [facility] Comment on above: Order Comment: Speci men Type: FLUID SPECIMENOrdering Facility: [facility] Address: [address] [place] [address] Result Comment: Gyne cologic Cytology Report Case: [id number] Authorizing Provider: Alli Forrester APRN.ENROUTE CONTROLLER Collected: 10/27/2024 10:01 AM Ordering Location: OB/Gynecology Received: 10/27/2024 12:21 PM First Screen: Deb Mares, CT, ASCP Specimen: Pap Test, ThinPrep, Cervix Performed By: #### L [id number] ####[facility] [id number] [place] [address] [place] CLINICAL HISTORY, CYTOLOGY, ORTHOTICS ASSISTANT (Indicate Weeks) Normal [facility] Comment on above: Order Comment: Speci men Type: FLUID SPECIMENOrdering Facility: [facility] Address: [address] [place] [address] Performed By: #### L [id number] ####[facility] LABCLIA [id number] [place] [id number] [place] FINAL PERFORMING LAB Normal [facility] Comment on above: Order Comment: Speci men Type: FLUID SPECIMENOrdering Facility: [facility] Address: [address] [place] [address] Result Comment: Tech nical component, c4 planner screening performed at [facility], [address] [place], [place] [id number] CLIA# [id number] Diagnostic interpretation performed at [facility], [address] [place] [address] CLIA# [id number] Document Preparation Specialist: Mike Tyson M.D. Performed By: #### L [id number] ####[facility]IA [id number] [place] [address] [place] INTERPRETATION, CYTOLOGY, ORTHOTICS ASSISTANT Normal [facility] Comment on above: Order Comment: Speci men Type: FLUID SPECIMENOrdering Facility: [facility] Address: [address] [place] [address] Result Comment: Nega tive for intraepithelial lesion or malignancy. Performed By: #### L [id number] ####[facility]IA [id number] [place] [id number] [place] LMP 08/31/2024 Normal [facility] Comment on above: Order Comment: Speci men Type: FLUID SPECIMENOrdering Facility: [facility] Address: [address] [place] [address] Performed By: #### L [id number] ####[facility]IA [id number] [address] [place] PAP DISCLAIMER COMMENT The Pap Smear is a screening test for cervical cancer. False negative results occur with all screening tests, emphasizing the need for rescreening at recommended intervals, and clinical correlation. Normal [facility] Comment on above: Order Comment: Speci men Type: FLUID SPECIMENOrdering Facility: [facility] Address: [address] [place] [address] Performed By: #### L [id number] ####[facility]IA [id number] [address] [place] PAP ROTARY SCREEN PRINTING MACHINE OPERATOR COMMENT This specimen has been analyzed by the ThinPrep Imaging System, an automated imaging and review system, which assists the laboratory in evaluating cells on ThinPrep Pap tests. Following automated imaging, selected cevallos from every slide are reviewed by a c4 planner. Normal [facility] Comment on above: Order Comment: Speci men Type: FLUID SPECIMENOrdering Facility: [facility] Address: [address] [place] [address] Performed By: #### L [id number] ####[facility] LABCLIA [id number] [address] [place] POC [employer] ULTRASOUNDon 10-27-19 25 Indication Viability; confirm cardiac [...] Read By: Alli Forrester NP MATERNAL MEDICINE [facility] Radiology Study observation (narrative) [facility] 25(OH)D3 [facility] 25-hydroxyvitamin D3 [Mass/Vol] 35.5 ng/mL Normal 31.0-80.0 [facility] Comment on above: Order Comment: Speci men Type: BLOOD SPECIMENOrdering Facility: [facility] Address: [address] [place] [address] Result Comment: Clas sification of 25 [place] Vitamin D status: Deficiency/Insufficiency: < or = 30 ng/ml. Sufficiency/Optimal Levels: 31-80 ng/mL Toxicity: > 100 ng/mL. Test performed by chemiluminescent immunoassay. Performed By: #### 1 989-3 ####[facility]IA [id number] [address] OF [facility] Gutierrez 08-23-2024 CNPN Telephone (4CQ) ---- HOWARD SALDIVAR ([id number]) 03 F [facility] Date Time Provider Department 08/23/24 KIM WARD [...] Date Reviewed: 07/24/2024 Reviewed by: Shmuel Merlos APRN.ENROUTE CONTROLLER - Fully Assessed Reason for Visit: Patient Update [1234] Cmt: Pt was informed lab orders are in. Primary Visit Diagnosis:Vitamin D deficiency [E55.9] Order(s):VITAMIN D 25 HYDROXY [SQVITD] Order #: [id number] FUTURE Prescriptions as of 08/23/2024 - vit/iron [...] Resolved TBI (traumatic brain injury) ([facility]) [S06.9XAA] 05/06/2022 Depression [F32.A] 05/06/2022 Migraine with aura, not intractable, without st*05/06/2022 BMI 29.0-29.9,adult [Z68.29] 05/06/2022 Eating disorder [F50.9] 06/13/2023 Vasovagal syncope [R55] 09/10/2023 GERD (gastroesophageal reflux disease) [K21.9] 09/10/2023 Encounter Status:Closed by SHERRI PRAJAPATI on 08/23/24 Normal [facility] Bacteria Ur Culton 4 Bacteria identified Cx Nom (U) CULTURE, URINE: Mixed microbiota, including predominantly: ORGANISM ID: 2 >=100,000 CFU/ml Staphylococcus saprophyticus Routine susceptibility testing of S. saprophyticus urine isolates is not performed because uncomplicated UTIs respond to urine concentrations of agents commonly used (e.g. Nitrofurantoin, TMP/SMX, or a quinolone). Normal [facility] Comment on above: Performed By: #### 6 30-4 ####[facility]IA [id number] [facility] [id number] [place], [place] [id number] [facility] [place] CNOVon 07-24-2024 CNOV Office Visit (WALKWA) ---- HOWARD SALDIVAR ([id number]) 03 [facility] Date Time Provider Department 07/24/24 9:55 AM SHMUEL MERLOS During your visit today, we recorded the following information about you: Temperature Pulse Respiration Blood pressure 97.8 degrees 81/minute 18/minute 106/73 Weight 83 kg Shmuel Merlos APRN.ENROUTE CONTROLLER 07/24/2024 11:27 AM Signed Subjective The history is provided by the patient. No automotive parts interpreter was used. UTI This is a new [...] Ref Range Urine hCG (POCT) Negative Negative Camp Counselor (POCT) Internal QC OK - URINE CULTURE [...] verbalizes unders (more content not included)... Normal [facility] UA DIP, URINE (POC)on 2023 BILIRUBIN UA (POCT) Negative Negative [facility] CLARITY UA (POCT) Cloudy [facility] COLOR UA (POCT) Dark yellow [facility] GLUCOSE UA (POCT) Negative Negative mg/dL [facility] Hemoglobin Ql (U) Trace-intact Abnormal Negative [facility] Interpretation and review of laboratory results Abnormal [facility] KETONE UA (POCT) Negative Negative mg/dL [facility] LEUKOCYTES UA (POCT) Small Abnormal Negative [facility] NITRITE UA (POCT) Negative Negative [facility] PH UA (POCT) 7.0 4.5 - 8.0 [facility] Protein Ql (U) Trace Abnormal Negative mg/dL [facility] SPECIFIC GRAVITY UA (POCT) >=1.030 1.005 - 1.030 [facility] UROBILINOGEN UA (POCT) 0.2 Normal E.U./d L [facility] Location:[facility], [address] [place], [place], [address] [place] [address] POINT OF CARE [facility] UA DIP,URINE HCG (POC)on Beta HCG ( test) Ql (U) Negative Negative [facility] Comment on above: Location:[facility], [address] [place] [address], [facility] Camp Counselor (POCT) Internal QC [facility] Location:[place] [facility], [address] [place] [address], [address] [place] [address] POINT OF CARE [facility] UA DIP, URINE (POC)on 2023 BILIRUBIN UA (POCT) Negative Negative [facility] CLARITY UA (POCT) [facility] COLOR UA (POCT) Dark yellow [facility] GLUCOSE UA (POCT) Negative Negative mg/dL [facility] Hemoglobin Ql (U) Trace-lysed Abnormal Negative [facility] Interpretation and review of laboratory results Abnormal [facility] KETONE UA (POCT) Negative Negative mg/dL [facility] LEUKOCYTES UA (POCT) Small Abnormal Negative [facility] NITRITE UA (POCT) Negative Negative [facility] PH UA (POCT) 7.5 4.5 - 8.0 [facility] Protein Ql (U) 30 mg/dL Abnormal Negative [facility] SPECIFIC GRAVITY UA (POCT) 1.020 1.005 - 1.030 [facility] UROBILINOGEN UA (POCT) 0.2 Normal E.U./d L [facility] Location:[place] [facility], [address] [place], [place], [address] [place] [address] POINT OF CARE [facility] CNOVon 02-24-2024 CNOV Office Visit (CCWRNC) ---- HOWARD SALDIVAR ([id number]) 03 F [facility] Date Time Provider Department 02/24/24 12:15 PM [facility] CCWR[facility] During your visit today, we [...] Resolved TBI (traumatic brain injury) ([facility]) [S06.9XAA] 05/06/2022 Depression [F32.A] 05/06/2022 Migraine with aura, not intractable, without st*05/06/2022 BMI 29.0-29.9,adult [Z68.29] 05/06/2022 Eating disorder [F50.9] 06/13/2023 Vasovagal syncope [R55] 09/10/2023 GERD (gastroesophageal reflux disease) [K21.9] 09/10/2023 Encounter Status:Closed by EUGENE POLO on 02/24/24 Normal [facility] Chest PA and Lateralon 12-29 Chest PA and Lateral [facility] Imaging Services [address] [place] [address] Chest PA and Lateral MR#: [id number] Acct: [id number] Name: HOWARD SALDIVAR Rep #: [id number] : 2005 F 18 From: Emiliano ely MD PCP: Kim Ward Status: PRE ER Study: Chest PA and Lateral Date of Exam: 12/30/23 Exam# [id number] Ordering Dr: Giovani Fernandez DO -[id number] STUDY: X-RAY CHEST REASON FOR EXAM: [...] CC: Dr. Giovani Fernandez DO; Kim Ward Die Operator: Signed Normal [facility] Emergency Department Summary on 12-30-2023 Emergency Department Summary [facility] Medical Records Department [address] [place] [address] Emergency Department Summary 12/30/23 MR#: [id number] Acct: [id number] Name: HOWARD SALDIVAR Rep #: [id number] : 2005 18 From: Giovani Fernandez DO [...] non-tender, non- (more content not included)... Normal [facility] - Microbiology an d Antimicrobial susceptibilityOrdered By: Giovani Fernandez on 12-30-2023 SARS-CoV-2 (COVID-19) RNA LUCIA+probe Ql (Unsp spec) Influenzae B [facility] M100.678on 12-30-2023 M100.678 Normal Reference Range = Negative COV + FLU + RSV PCR GeneXpert Instrument, PCR method Copy of report sent to Infection Control Printer [id number] 12/30/23 1143 VSICK. SARS-CoV-2 (COVID 19) Negative INFLUENZA A Negative INFLUENZA B Positive RSV PCR Negative INFLUENZA B Positive A Normal [facility] Comment on above: Performed By: #### M 100.678 #### [facility] [address] [facility] [place], [place], [id number] STREP A MOLECULAR (POC)on Procedural Control Valid [facility] Strep A (POCT) Negative Negative [facility] CBC W Auto Differential pane l (Bld)on 06-13-2023 Basophils (Bld) [#/Vol] 0.05 10*3/uL <0.11 k/uL [facility] Basophils/100 WBC (Bld) 0.5 % [facility] Differential cell count method Nom (Bld) Auto [facility] Eosinophils (Bld) [#/Vol] 0.10 10*3/uL <0.46 k/ uL [facility] Eosinophils/100 WBC (Bld) 1.0 % [facility] Erythrocyte distribution width (RBC) [Ratio] 12.3 % 11.5 - 15.0 % [facility] Hematocrit (Bld) [Volume fraction] 38.7 % 36.0 - 46.0 % [facility] Hemoglobin (Bld) [Mass/Vol] 12.8 g/dL 11.5 - 15.5 g/dL [facility] Immature granulocytes (Bld) [#/Vol] <0.10 k/uL [facility] Immature granulocytes/100 WBC (Bld) 0.2 % [facility] Lymphocytes (Bld) [#/Vol] 2.46 10*3/uL 1. 00 - 4.00 k/uL [facility] Lymphocytes/100 WBC (Bld) 25.0 % [facility] MCH (RBC) [Entitic mass] 28.4 pg 26.0 - 34.0 pg [facility] MCHC (RBC) [Mass/Vol] 33.1 g/dL 30.5 - 36.0 g/dL [facility] MCV (RBC) [Entitic vol] 86.0 fL 80.0 - 100.0 fL [facility] Monocytes (Bld) [#/Vol] 0.59 10*3/uL <0.87 k/uL [facility] Monocytes/100 WBC (Bld) 6.0 % C [facility] Neutrophils (Bld) [#/Vol] 6.61 10*3/uL 1. 45 - 7.50 k/uL [facility] Neutrophils/100 WBC (Bld) 67.3 % [facility] Nucleated RBC (Bld) [#/Vol] <0.01 k/uL [facility] Nucleated RBC/100 WBC (Bld) [Ratio] 0.0 /100 WBC [facility] Platelet mean volume (Bld) [Entitic vol] 9.7 fL 9.0 - 12.7 fL [facility] Platelets (Bld) [#/Vol] 297 10*3/uL 150 - 400 k /uL [facility] RBC (Bld) [#/Vol] 4.50 10*6/uL 3.90 - 5.2 0 m/uL [facility] WBC (Bld) [#/Vol] 9.83 10*3/uL 3.70 - 11. 00 k/uL [facility] Comprehensive metabolic 2000 panelon 06-13-2023 Albumin [Mass/Vol] 4.7 g/dL 3.9 - 4.9 g/dL Cl [facility] ALP [Catalytic activity/Vol] 67 U/L 34 - 123 U/L [facility] ALT [Catalytic activity/Vol] 21 U/L 7 - 38 U/L [facility] Anion gap [Moles/Vol] 12 mmol/L 9 - 18 mmol/L [facility] AST [Catalytic activity/Vol] 16 U/L 13 - 35 U/L [facility] Bilirubin [Mass/Vol] 0.2 mg/dL 0.2 - 1 .3 mg/dL [facility] Calcium [Mass/Vol] 9.8 mg/dL 8.5 - 10. 2 mg/dL [facility] Chloride [Moles/Vol] 100 mmol/L 97 - 10 5 mmol/L [facility] CO2 [Moles/Vol] 26 mmol/L 22 - 30 mmol/L [facility] Creatinine [Mass/Vol] 0.66 mg/dL 0.58 - 0.96 mg/dL [facility] Estimated Glomerular Filtration Rate 129 mL/min/1.73m >=60 mL/min/1.73m [facility] Glucose [Mass/Vol] 84 mg/dL 74 - 99 mg/dL [facility] Potassium [Moles/Vol] 4.0 mmol/L 3.7 - 5.1 mmol/L [facility] Protein [Mass/Vol] 7.6 g/dL 6.3 - 8.0 g/dL Cl [facility] Sodium [Moles/Vol] 138 mmol/L 136 - 144 mmol/L [facility] Urea nitrogen [Mass/Vol] 16 mg/dL 7 - 21 mg/d L [facility] Absolute lymphocyte countOrd ered By: Mandy Minal on 06-07-2023 Lymphocytes Auto (Unsp spec) [#/Vol] 2.37 10*3/uL 0.83-4.51 [facility] Basophil percentageOrdered B y: Mandy Minal on 06-07-2023 Basophils/100 WBC (Bld) 0.5 % 0-1 [facility] Chloride [Moles/Vol] 108 mmol/L 98-107 [facility] Eosinophils/100 WBC (Bld) 1.0 % 0-5 [facility] Glucose [Mass/Vol] 93 mg/dL 74-106 [facility] Neutrophils (Bld) [#/Vol] 4.9 10*3/uL 2.0-7.7 [facility] Neutrophils/100 WBC (Bld) 61.0 % 47-70 [facility] Potassium [Moles/Vol] 3.8 mmol/L 3.5-5.1 [facility] Sodium [Moles/Vol] 139 mmol/L 136-145 [facility] WBC (Bld) [#/Vol] 8.0 10*3/uL 4.4-11.0 [facility] Beta hCG serum qualOrdered B y: Mandy Fontaine on 06-07-2023 Beta HCG ( test) Ql Negative [facility] Blood erythrocytes count (nu mber/volume)Ordered By: Mandy Fontaine on 06-07-2023 RBC (Bld) [#/Vol] 4.80 10*6/uL 4.2-5.4 [facility] Blood hemoglobin measurement (mass/volume)Ordered By: Mandy Fontaine on 06-07-2023 Hemoglobin (Bld) [Mass/Vol] 13.3 g/dL 12.0-15.0 [facility] Blood lymphocytes/100 leukoc ytesOrdered By: Mandy Fontaine on 06-07-2023 Lymphocytes/100 WBC (Bld) 29.7 % 19-41 [facility] Blood monocytes/100 leukocyt esOrdered By: Mandy Fontaine on 06-07-2023 Monocytes/100 WBC (Bld) 7.4 % 0-10 [facility] Blood platelet mean volumeOr dered By: Mandy Fontaine on 06-07-2023 Platelet mean volume (Bld) [Entitic vol] 10.0 fL 6.2-12.0 [facility] Determination of erythrocyte mean corpuscular volume (MCV)Ordered By: Mandy Fontaine on 06-07-2023 MCV (RBC) [Entitic vol] 87.1 fL 81-99 [facility] Hematocrit Auto (Bld) [Volum e fraction]Ordered By: Mandy Fontaine on 06-07-2023 Hematocrit (Bld) [Volume fraction] 41.8 % 37-47 [facility] - Chemistry and C hemistry - challengeOrdered By: Mandy Fontaine on 06-07-2023 CO2 [Moles/Vol] 26.0 mmol/L 21.0-32.0 [facility] Urea nitrogen/Creatinine [Mass ratio] 15.7 mg/mg 10-20 [facility] - Hematology and Cell countsOrdered By: Mandy Fontaine on 06-07-2023 Erythrocyte distribution width (RBC) [Entitic vol] 40.2 fL 35.1-43.9 [facility] Erythrocyte distribution width (RBC) [Ratio] 12.6 % 11.6-14.6 [facility] Immature granulocytes/100 WBC (Bld) 0.400 % 0.0-0.9 [facility] Comment on above: IG% - Immature Granu locytes (promyelocytes, myelocytes and metamyelocytes) > 1% indicates that a LEFT SHIFT is Present. MCH (RBC) [Entitic mass] 27.7 pg 27.0-32.0 [facility] Nucleated RBC/100 WBC (Bld) [Ratio] 0 % 0-5 [facility] MCHC Auto (RBC) [Mass/Vol]Or dered By: Mandy Fontaine on 06-07-2023 MCHC (RBC) [Mass/Vol] 31.8 g/dL 32-36 [facility] No Panel InformationOrdered By: Mandy Fontaine on 06-07-2023 Estimated Creatinine Clearance Calc 109.07 ml/min [facility] Estimated GFR (MDRD) Amer 113 mL/min >60 [facility] Comment on above: GFR Calc Estimated GFR (MDRD) Non-Af Amer 93 mL/min >60 [facility] Comment on above: Non- GFR Calc Platelets bldOrdered By: Opal Fontaine on 06-07-2023 Platelets (Bld) [#/Vol] 321 10*3/uL 150-450 [facility] Serum or plasma calcium debi urement (mass/volume)Ordered By: Mandy Fontaine on 06-07-2023 Calcium [Mass/Vol] 9.3 mg/dL 8.5-10.1 [facility] Serum or plasma creatinine m easurement (mass/volume)Ordered By: Mandy Fontaine on 06-07-2023 Creatinine [Mass/Vol] 0.83 mg/dL 0.55-1.02 [facility] Comment on above: The validity of the calculated GFR & GFRAA in patients over 70 years has not been determined. Clinical correlation is essential. Serum or plasma urea nitroge n measurement (mass/volume)Ordered By: Mandy Fontaine on 06-07-2023 Urea nitrogen [Mass/Vol] 13 mg/dL 7-18 [facility] Thin prep Papanicolaou smear with manual screeningOrdered By: Mandy Fontaine on 06-07-2023 Thin prep Papanicolaou smear with manual screening 5-15 [facility] HCG QUAL UR B/Oon 08-16-2022 status Negative Abnormal neg - pos [facility] Quality Check Yes Abnormal [facility] Comprehensive metabolic 2000 panelon 05-10-2022 Albumin [Mass/Vol] 4.8 g/dL Normal 3.9-4.[address] [facility] Comment on above: Order Comment: Speci men Type: BLOOD SPECIMEN Ordering Facility: [facility] Address: [address] [place] [address] Performed By: #### 2 4323-8 #### [facility] CLIA [id number] [address] ALP [Catalytic activity/Vol] 85 U/L Normal 34-[address] [facility] Comment on above: Order Comment: Speci men Type: BLOOD SPECIMEN Ordering Facility: [facility] Address: [address] [place] [address] Performed By: #### 2 4323-8 #### [facility] CLIA [id number] [address] STATES [facility] ALT [Catalytic activity/Vol] 11 U/L Normal 7-[address] [facility] Comment on above: Order Comment: Speci men Type: BLOOD SPECIMEN Ordering Facility: [facility] Address: [address] [place] [address] Performed By: #### 2 4323-8 #### [facility] CLIA [id number] [address] [place] [address] [place] [facility] Anion gap [Moles/Vol] 10 mmol/L Normal 9-18 [facility] Comment on above: Order Comment: Speci men Type: BLOOD SPECIMEN Ordering Facility: [facility] Address: [address] [place] [address] Performed By: #### 2 4323-8 #### [facility] CLIA [id number] [address] [place] [address] [place] AST [Catalytic activity/Vol] 14 U/L Normal 13-[address] [facility] Comment on above: Order Comment: Speci men Type: BLOOD SPECIMEN Ordering Facility: [facility] Address: [address] [place] [address] Performed By: #### 2 4323-8 #### [facility] CLIA [id number] [address] [place] [address] [place] Bilirubin [Mass/Vol] 0.2 mg/dL Normal 0.2-1.3 [facility] Comment on above: Order Comment: Speci men Type: BLOOD SPECIMEN Ordering Facility: [facility] Address: [address] [place] [address] Performed By: #### 2 4323-8 #### [facility] CLIA [id number] [address] [place] [address] [place] Calcium [Mass/Vol] 9.7 mg/dL Normal 8.5-10.[address] [facility] Comment on above: Order Comment: Speci men Type: BLOOD SPECIMEN Ordering Facility: [facility] Address: [address] [place] [address] Performed By: #### 2 4323-8 #### [facility] CLIA [id number] [address] [place] [address] [place] Chloride [Moles/Vol] 102 mmol/L Normal 97-105 [facility] Comment on above: Order Comment: Speci men Type: BLOOD SPECIMEN Ordering Facility: [facility] Address: [address] [place] [address] Performed By: #### 2 4323-8 #### [facility] CLIA [id number] [address] [place] [address] [place] CO2 [Moles/Vol] 30 mmol/L Normal 22-[address] [facility] Comment on above: Order Comment: Speci men Type: BLOOD SPECIMEN Ordering Facility: [facility] Address: [address] [place] [address] Performed By: #### 2 4323-8 #### [facility] CLIA [id number] [address] [place] [address] [place] Creatinine [Mass/Vol] 0.71 mg/dL Normal 0.58-0.96 [facility] Comment on above: Order Comment: Speci men Type: BLOOD SPECIMEN Ordering Facility: [facility] Address: [address] [address] Performed By: #### 2 4323-8 #### [facility] CLIA [id number] [address] [place] [address] [place] ESTIMATED GLOMERULAR FILTRATION RATE 126 mL/min/1.73m??? Normal >=[address] [facility] Comment on above: Order Comment: Kacie euceda Type: BLOOD SPECIMEN Ordering Facility: [facility] Address: [address] [place] [address] Result Comment: Kirsten mated Glomerular Filtration Rate [...] #### 2 4323-8 #### [facility] CLIA [id number] [address] [place] [address] [place] Glucose [Mass/Vol] 94 mg/dL Normal 74-[address] [facility] Comment on above: Order Comment: Kacie euceda Type: BLOOD SPECIMEN Ordering Facility: [facility] Address: [address] [place] [address] Result Comment: The [place] [employer] (ADA) provides guidance for cutoff [...] Standards of Medical Care in Diabetes 2016, [place] [employer]. Diabetes Care. 2016.39(Suppl 1). Performed By: #### 2 4323-8 #### [facility] CLIA [id number] [address] [place] [address] [place] Potassium [Moles/Vol] 4.0 mmol/L Normal 3.7-5.1 [facility] Comment on above: Order Comment: Speci men Type: BLOOD SPECIMEN Ordering Facility: [facility] Address: [address] [place] [address] Performed By: #### 2 4323-8 #### [facility] CLIA [id number] [address] [place] [address] [place] Protein [Mass/Vol] 7.5 g/dL Normal 6.3-8.[address] [facility] Comment on above: Order Comment: Speci men Type: BLOOD SPECIMEN Ordering Facility: [facility] Address: [address] [place] [address] Performed By: #### 2 4323-8 #### [facility] CLIA [id number] [address] [place] [address] [place] Sodium [Moles/Vol] 142 mmol/L Normal 136-[address] [facility] Comment on above: Order Comment: Sami men Type: BLOOD SPECIMEN Ordering Facility: [facility] Address: [address] [place] [address] Performed By: #### 2 4323-8 #### [facility] CLIA [id number] [address] [place] [address] [place] Urea nitrogen [Mass/Vol] 9 mg/dL Normal 7-[address] [facility] Comment on above: Order Comment: Sami ok Type: BLOOD SPECIMEN Ordering Facility: [facility] Address: [address] [place] [address] Performed By: #### 2 4323-8 #### [facility] CLIA [id number] [address] [place] [address] [place] HCV Ab Ser Qlon 05-10-2022 HCV Ab Ql (S) Negative Normal Negative [facility] Comment on above: Order Comment: Sami men Type: BLOOD SPECIMEN Ordering Facility: [facility] Address: [address] [place] [address] Result Comment: The result suggests no evidence of active infection with Hepatitis C virus. Should recent infection be suspected, repeat testing may be considered 4-6 weeks after this draw. Performed By: #### 1 6128-1 #### [facility] CLIA [id number] [address] [place] [address] [place] HIV 1+2 Ab IA Qlon 2 HIV 1 and 2 Ab IA.rapid Nom Normal [facility] Comment on above: Order Comment: Speci men Type: BLOOD SPECIMEN Ordering Facility: [facility] Address: [address] [place] [address] Result Comment: Test not indicated. Performed By: #### 3 1201-7 #### [facility] CLIA [id number] [address] [place] [address] HIV 1+2 Ab+HIV1 p24 Ag IA Ql Non-Reactive Normal Nonreactive [facility] Comment on above: Order Comment: Speci men Type: BLOOD SPECIMEN Ordering Facility: [facility] Address: [address] [place] [address] Performed By: #### 3 1201-7 #### [facility] CLIA [id number] [address] [place] [address] HIVINT Normal [facility] Comment on above: Order Comment: Speci men Type: BLOOD SPECIMEN Ordering Facility: [facility] Address: [address] [place] [address] Result Comment: No e vidence of HIV-1 or HIV-2 infection. Should recent infection be suspected, repeat testing may be considered 2-3 weeks after this draw. [place] Rev. Code 3701.243(E): This information has been [...] diagnoses. Performed By: #### 3 1201-7 #### [facility] CLIA [id number] [address] [place] [address] [place] Progress Noteon 11-24-2021 Mechanical Engineer Authentication Interface Message Text Patient ID: Howard [...] redness of breast. She is unaccompanied. No automotive parts interpreter was used. 16 YEAR WELL CHILD Home: Howard eats meals with family, has an adult to turn to for help and is permitted and able to make independent decisions. Education: Howard is in freshman year of college and is doing well. 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 Eating: Howard eats regular meals including [...] alert. Vitals reviewed: Blood pressure 120/78. Howard Sadlivar is a 16 y.o. female patient. PHQ9 [...] Electronically signed by: Lexy Kumar MD Normal [facility] Progress Noteon 03-14-2021 Mechanical Engineer Authentication Interface Message Text [facility] Neurology Outpatient Office Visit Date: 03/14/2021 Patient Name:Howard Saldivar Patient Primary Care Doctor: [...] and screen time before bed. Working at [employer]- going well and not getting [...] weeks [employer]: graduated, heading to [employer] with the intention of pursing pre-med; works at [employer] Bullying: no concern for bullying, [...] follows with a counselor ([facility] in [place]) once every 3 weeks Glasses: yes She [...] (30 mg (more content not included)... Normal [facility] Progress Noteon 01-10-2021 Mechanical Engineer Authentication Interface Message Text [facility] Neurology Outpatient Date: 01/10/2021 Patient Name:Howard Saldivar [...] the concrete. There was no LOC, no ASSOCIATE CIVIL ENGINEER. Acute symptoms included: headache and neck pain. Taken by EMS to [facility] ED. CT head negative. X-ray R elbow [...] and screen time before bed. Working at [employer] and [employer]- going well and not getting [...] pain, no radicular symptoms. Father lives in [place]- and Howard has seen a chiropractor (1-2X) in [place] since head injury Vestibular: No longer dizziness or unsteadiness with quick head movements. dizziness with getting up from laying down is resolved now that hydration has improved. Baseline car/motion sickness that has worsened. Ocular: no longer blurred vision with focusing on objects/reading. No double vision. Cognitive: Mental fogginess: no Problems with concentration: no Problems with memory: no 12th grade at [employer] vision care program. Combination of in person and online. Previous grades have As/B (more content not included)... Normal [facility] OCT MACULA CIRRUS OU (BOTH E YES) [facility] Vital Signs Date Time Vital Sign Value Performing Clinician Shruthi atkinson 06-03-2025 15:16-0400 Body mass index (BMI) [Ratio] 34.81 kg/m2 Arlene Narayan APRN.CNM Work Phone: [facility] 06-03-2025 15:16-0400 Body weight 97.07 kg Arlene Narayan APRN.CNM Work Phone: [facility] 06-03-2025 15:16-0400 Diastolic blood pressure 82 mm[Hg] Arlene Narayan APRN.CNSonido Work Phone: [facility] 06-03-2025 15:16-0400 Systolic blood pressure 122 mm[Hg] Arlene Narayan APRN.CNM Work Phone: [facility] 06-01-2025 10:45-0400 Body mass index (BMI) [Ratio] 34.64 kg/m2 Nicky Bryant MD Work Phone: [facility] 06-01-2025 10:45-0400 Body weight 96.62 kg Nicky Bryant MD Work Phone: [facility] 06-01-2025 10:45-0400 Diastolic blood pressure 80 mm[Hg] Nicky Bryant MD Work Phone: [facility] 06-01-2025 10:45-0400 Systolic blood pressure 124 mm[Hg] Nicky Bryant MD Work Phone: [facility] 05-24-2025 11:20-0400 Body mass index (BMI) [Ratio] 34.42 kg/m2 Tati Bowles MD Work Phone: [facility] 05-24-2025 11:20-0400 Body weight 95.98 kg Tati Bowles MD Work Phone: [facility] 05-24-2025 11:20-0400 Diastolic blood pressure 82 mm[Hg] Tati Bowles MD Work Phone: [facility] 05-24-2025 11:20-0400 Systolic blood pressure 120 mm[Hg] Tati Bowles MD Work Phone: [facility] 05-09-2025 09:51-0400 Body mass index (BMI) [Ratio] 33.83 kg/m2 Clare Frank MD Work Phone: [facility] 05-09-2025 09:51-0400 Body weight 94.35 kg Clare Frank MD Work Phone: [facility] 05-09-2025 09:51-0400 Diastolic blood pressure 70 mm[Hg] Clare Frank MD Work Phone: [facility] 05-09-2025 09:51-0400 Systolic blood pressure 102 mm[Hg] Clare Frank MD Work Phone: [facility] 04-28-2025 11:39-0400 Body mass index (BMI) [Ratio] 33.28 kg/m2 Tati Bowles MD Work Phone: [facility] 04-28-2025 11:39-0400 Body weight 92.81 kg Tati Bowles MD Work Phone: [facility] 04-28-2025 11:39-0400 Diastolic blood pressure 68 mm[Hg] Tati Bowles MD Work Phone: [facility] 04-28-2025 11:39-0400 Systolic blood pressure 102 mm[Hg] Tati Bowles MD Work Phone: [facility] 04-20-2025 12:05-0400 Body mass index (BMI) [Ratio] 32.85 kg/m2 Nst Wstr Work Phone: [facility] 04-20-2025 12:05-0400 Body weight 91.63 kg Nst Wstr Work Phone: [facility] 04-20-2025 12:05-0400 Diastolic blood pressure 70 mm[Hg] Nst Wstr Work Phone: [facility] 04-20-2025 12:05-0400 Systolic blood pressure 113 mm[Hg] Nst Wstr Work Phone: [facility] 04-13-2025 08:01-0400 Body mass index (BMI) [Ratio] 33.02 kg/m2 Arlene Narayan APRN.CNM Work Phone: [facility] 04-13-2025 08:01-0400 Body weight 92.08 kg Arlene Narayan APRN.CNM Work Phone: [facility] 04-13-2025 08:01-0400 Diastolic blood pressure 64 mm[Hg] Arlene Narayan APRN.CNM Work Phone: [facility] 04-13-2025 08:01-0400 Systolic blood pressure 108 mm[Hg] Arlene Narayan APRN.CNM Work Phone: [facility] 03-28-2025 11:17-0400 Body mass index (BMI) [Ratio] 32.53 kg/m2 Arlene Narayan APRN.CNM Work Phone: [facility] 03-28-2025 11:17-0400 Body weight 90.72 kg Arlene Narayan APRN.CNM Work Phone: [facility] 03-28-2025 11:17-0400 Diastolic blood pressure 64 mm[Hg] Arlene Narayan APRN.CNM Work Phone: [facility] 03-28-2025 11:17-0400 Systolic blood pressure 98 mm[Hg] Arlene Narayan BIOMEDICAL EQUIPMENT SUPPORT SPECIALIST.CNM Work Phone: [facility] 03-16-2025 08:05-0400 Body mass index (BMI) [Ratio] 32.37 kg/m2 Arlene Narayan BIOMEDICAL EQUIPMENT SUPPORT SPECIALIST.CNM Work Phone: [facility] 03-16-2025 08:05-0400 Body weight 90.27 kg Arlene Narayan BIOMEDICAL EQUIPMENT SUPPORT SPECIALIST.CNM Work Phone: [facility] 03-16-2025 08:05-0400 Diastolic blood pressure 60 mm[Hg] Arlene Narayan BIOMEDICAL EQUIPMENT SUPPORT SPECIALIST.CNM Work Phone: [facility] 03-16-2025 08:05-0400 Systolic blood pressure 110 mm[Hg] Arlene Narayan BIOMEDICAL EQUIPMENT SUPPORT SPECIALIST.CNM Work Phone: [facility] 02-23-2025 13:39-0400 Body mass index (BMI) [Ratio] 31.27 kg/m2 Kamran Christian BIOMEDICAL EQUIPMENT SUPPORT SPECIALIST.ENROUTE CONTROLLER Work Phone: [facility] 02-23-2025 13:39-0400 Body temperature 98.71 [degF] Kamran Christian BIOMEDICAL EQUIPMENT SUPPORT SPECIALIST.ENROUTE CONTROLLER Work Phone: [facility] 02-23-2025 13:39-0400 Body weight 87.2 kg Kamran Christian BIOMEDICAL EQUIPMENT SUPPORT SPECIALIST.ENROUTE CONTROLLER Work Phone: [facility] 02-23-2025 13:39-0400 Diastolic blood pressure 46 mm[Hg] Kamran Christian BIOMEDICAL EQUIPMENT SUPPORT SPECIALIST.ENROUTE CONTROLLER Work Phone: [facility] 02-23-2025 13:39-0400 Heart rate 107 /min Kamran Christian BIOMEDICAL EQUIPMENT SUPPORT SPECIALIST.ENROUTE CONTROLLER Work Phone: [facility] 02-23-2025 13:39-0400 SaO2% (BldA) [Mass fraction] 99 % Kamran Christian BIOMEDICAL EQUIPMENT SUPPORT SPECIALIST.ENROUTE CONTROLLER Work Phone: [facility] 02-23-2025 13:39-0400 Systolic blood pressure 90 mm[Hg] Kamran Christian BIOMEDICAL EQUIPMENT SUPPORT SPECIALIST.ENROUTE CONTROLLER Work Phone: [facility] 02-20-2025 09:24-0400 Body mass index (BMI) [Ratio] 31.3 kg/m2 Chris Clutter PA-C Work Phone: [facility] 02-20-2025 09:24-0400 Body temperature 98.6 [degF] Chris Clutter PA-C Work Phone: [facility] 02-20-2025 09:24-0400 Body weight 87.3 kg Chris Clutter PA-C Work Phone: [facility] 02-20-2025 09:24-0400 Diastolic blood pressure 66 mm[Hg] Chris Clutter PA-C Work Phone: [facility] 02-20-2025 09:24-0400 Heart rate 101 /min Chris Clutter PA-C Work Phone: [facility] 02-20-2025 09:24-0400 Respiratory rate 18 /min Chris Clutter PA-C Work Phone: [facility] 02-20-2025 09:24-0400 SaO2% (BldA) [Mass fraction] 98 % Chris Clutter PA-C Work Phone: [facility] 02-20-2025 09:24-0400 Systolic blood pressure 110 mm[Hg] Chris Clutter PA-C Work Phone: [facility] 02-16-2025 08:48-0400 Body mass index (BMI) [Ratio] 31.06 kg/m2 Nicky Bryant MD Work Phone: [facility] 02-16-2025 08:48-0400 Body weight 86.64 kg Nicky Bryant MD Work Phone: [facility] 02-16-2025 08:48-0400 Diastolic blood pressure 56 mm[Hg] Nicky Bryant MD Work Phone: [facility] 02-16-2025 08:48-0400 Systolic blood pressure 104 mm[Hg] Nicky Bryant MD Work Phone: [facility] 01-21-2025 10:05-0400 Body mass index (BMI) [Ratio] 30.25 kg/m2 Mandy Sam MD Work Phone: [facility] 01-21-2025 10:05-0400 Body weight 84.37 kg Mandy Sam MD Work Phone: [facility] 01-21-2025 10:05-0400 Diastolic blood pressure 62 mm[Hg] Mandy Sam MD Work Phone: [facility] 01-21-2025 10:05-0400 Systolic blood pressure 112 mm[Hg] Mandy Sam MD Work Phone: [facility] 12-29-2024 10:27-0400 Body height 167 cm Donte Singleton MD Work Phone: [facility] 12-29-2024 10:27-0400 Body mass index (BMI) [Ratio] 29.67 kg/m2 Donte Singleton MD Work Phone: [facility] 12-29-2024 10:27-0400 Body weight 82.74 kg Donte Singleton MD Work Phone: [facility] 12-29-2024 10:27-0400 Diastolic blood pressure 58 mm[Hg] Donte Singleton MD Work Phone: [facility] 12-29-2024 10:27-0400 Heart rate 90 /min Donte Singleton MD Work Phone: [facility] 12-29-2024 10:27-0400 SaO2% (BldA) [Mass fraction] 99 % Donte Singleton MD Work Phone: [facility] 12-29-2024 10:27-0400 Systolic blood pressure 98 mm[Hg] Donte Singleton MD Work Phone: [facility] 12-27-2024 08:35-0400 Body mass index (BMI) [Ratio] 28.63 kg/m2 Clare Frank MD Work Phone: [facility] 12-27-2024 08:35-0400 Body weight 82.92 kg Clare Frank MD Work Phone: [facility] 12-27-2024 08:35-0400 Diastolic blood pressure 60 mm[Hg] Clare Frank MD Work Phone: [facility] 12-27-2024 08:35-0400 Systolic blood pressure 98 mm[Hg] Clare Frank MD Work Phone: [facility] 12-23-2024 15:34-0400 Body mass index (BMI) [Ratio] 28.82 kg/m2 Alli Haury BIOMEDICAL EQUIPMENT SUPPORT SPECIALIST.ENROUTE CONTROLLER Work Phone: [facility] 12-23-2024 15:34-0400 Body weight 83.46 kg Alli Haury BIOMEDICAL EQUIPMENT SUPPORT SPECIALIST.ENROUTE CONTROLLER Work Phone: [facility] 12-23-2024 15:34-0400 Diastolic blood pressure 64 mm[Hg] Alli Haury BIOMEDICAL EQUIPMENT SUPPORT SPECIALIST.ENROUTE CONTROLLER Work Phone: [facility] 12-23-2024 15:34-0400 Systolic blood pressure 102 mm[Hg] Alli Haury BIOMEDICAL EQUIPMENT SUPPORT SPECIALIST.ENROUTE CONTROLLER Work Phone: [facility] 12-15-2024 08:25-0500 Heart rate 96 /min Donte Singleton MD Work Phone: [facility] 12-15-2024 07:59-0500 Body mass index (BMI) [Ratio] 28.25 kg/m2 Donte Singleton MD Work Phone: [facility] 12-15-2024 07:59-0500 Body weight 81.83 kg Donte Singleton MD Work Phone: [facility] 12-15-2024 07:59-0500 Diastolic blood pressure 58 mm[Hg] Donte Singleton MD Work Phone: [facility] 12-15-2024 07:59-0500 Respiratory rate 16 /min Donte Singleton MD Work Phone: [facility] 12-15-2024 07:59-0500 SaO2% (BldA) [Mass fraction] 99 % Donte Singleton MD Work Phone: [facility] 12-15-2024 07:59-0500 Systolic blood pressure 98 mm[Hg] Donte Singleton MD Work Phone: [facility] 11-26-2024 09:28-0500 Body mass index (BMI) [Ratio] 27.66 kg/m2 Mandy Sam MD Work Phone: [facility] 11-26-2024 09:28-0500 Body weight 80.11 kg Mandy Sam MD Work Phone: [facility] 11-26-2024 09:28-0500 Diastolic blood pressure 72 mm[Hg] Mandy Sam MD Work Phone: [facility] 11-26-2024 09:28-0500 Systolic blood pressure 120 mm[Hg] Mandy Sam MD Work Phone: [facility] 10-27-2024 09:30-0500 Body height 170.2 cm Alli Haperico BIOMEDICAL EQUIPMENT SUPPORT SPECIALIST.ENROUTE CONTROLLER Work Phone: [facility] 10-27-2024 09:30-0500 Body mass index (BMI) [Ratio] 28.19 kg/m2 Alli Forrester BIOMEDICAL EQUIPMENT SUPPORT SPECIALIST.ENROUTE CONTROLLER Work Phone: [facility] 10-27-2024 09:30-0500 Body weight 81.65 kg Alli Haperico BIOMEDICAL EQUIPMENT SUPPORT SPECIALIST.ENROUTE CONTROLLER Work Phone: [facility] 10-27-2024 09:30-0500 Diastolic blood pressure 62 mm[Hg] Alli Haury BIOMEDICAL EQUIPMENT SUPPORT SPECIALIST.ENROUTE CONTROLLER Work Phone: [facility] 10-27-2024 09:30-0500 Systolic blood pressure 110 mm[Hg] Alli Haury BIOMEDICAL EQUIPMENT SUPPORT SPECIALIST.ENROUTE CONTROLLER Work Phone: [facility] 07-24-2024 10:21-0400 Body mass index (BMI) [Ratio] 27.82 kg/m2 Shmuel Merlos BIOMEDICAL EQUIPMENT SUPPORT SPECIALIST.ENROUTE CONTROLLER Work Phone: [facility] 07-24-2024 10:21-0400 Body temperature 97.81 [degF] Shmuel Brown BIOMEDICAL EQUIPMENT SUPPORT SPECIALIST.ENROUTE CONTROLLER Work Phone: [facility] 07-24-2024 10:21-0400 Body weight 83 kg Shmuel Brown BIOMEDICAL EQUIPMENT SUPPORT SPECIALIST.ENROUTE CONTROLLER Work Phone: [facility] 07-24-2024 10:21-0400 Diastolic blood pressure 73 mm[Hg] Shmuel Brown BIOMEDICAL EQUIPMENT SUPPORT SPECIALIST.ENROUTE CONTROLLER Work Phone: [facility] 07-24-2024 10:21-0400 Heart rate 81 /min Shmuel Brown BIOMEDICAL EQUIPMENT SUPPORT SPECIALIST.ENROUTE CONTROLLER Work Phone: [facility] 07-24-2024 10:21-0400 Respiratory rate 18 /min Shmuel Brown BIOMEDICAL EQUIPMENT SUPPORT SPECIALIST.ENROUTE CONTROLLER Work Phone: [facility] 07-24-2024 10:21-0400 SaO2% (BldA) [Mass fraction] 100 % Shmuel Brown BIOMEDICAL EQUIPMENT SUPPORT SPECIALIST.ENROUTE CONTROLLER Work Phone: [facility] 07-24-2024 10:21-0400 Systolic blood pressure 106 mm[Hg] Shmuel Brown BIOMEDICAL EQUIPMENT SUPPORT SPECIALIST.ENROUTE CONTROLLER Work Phone: [facility] 05-16-2024 08:51-0400 Body mass index (BMI) [Ratio] 29.7 kg/m2 Elvira Slabaugh PA-C Work Phone: [facility] 05-16-2024 08:51-0400 Body temperature 97.3 [degF] Elvira Slabaugh PA-C Work Phone: [facility] 05-16-2024 08:51-0400 Body weight 88.6 kg Elvira Slabaugh PA-C Work Phone: [facility] 05-16-2024 08:51-0400 Diastolic blood pressure 70 mm[Hg] Elvira Slabaugh PA-C Work Phone: [facility] 05-16-2024 08:51-0400 Heart rate 101 /min Elvira Slabaugh PA-C Work Phone: [facility] 05-16-2024 08:51-0400 SaO2% (BldA) [Mass fraction] 98 % Elvira Carr PA-C Work Phone: [facility] 05-16-2024 08:51-0400 Systolic blood pressure 117 mm[Hg] Elvira LEW-Carter Work Phone: [facility] 02-23-2024 16:53-0400 Body mass index (BMI) [Ratio] 29.45 kg/m2 Natali Larouere BIOMEDICAL EQUIPMENT SUPPORT SPECIALIST.ENROUTE CONTROLLER Work Phone: [facility] 02-23-2024 16:53-0400 Body temperature 97.59 [degF] Natali Larouere BIOMEDICAL EQUIPMENT SUPPORT SPECIALIST.ENROUTE CONTROLLER Work Phone: [facility] 02-23-2024 16:53-0400 Body weight 87.85 kg Natali Larouere BIOMEDICAL EQUIPMENT SUPPORT SPECIALIST.ENROUTE CONTROLLER Work Phone: [facility] 02-23-2024 16:53-0400 Diastolic blood pressure 74 mm[Hg] Natali Larouere BIOMEDICAL EQUIPMENT SUPPORT SPECIALIST.ENROUTE CONTROLLER Work Phone: [facility] 02-23-2024 16:53-0400 Heart rate 80 /min Natali Larouere BIOMEDICAL EQUIPMENT SUPPORT SPECIALIST.ENROUTE CONTROLLER Work Phone: [facility] 02-23-2024 16:53-0400 SaO2% (BldA) [Mass fraction] 100 % Natali Larouere BIOMEDICAL EQUIPMENT SUPPORT SPECIALIST.ENROUTE CONTROLLER Work Phone: [facility] 02-23-2024 16:53-0400 Systolic blood pressure 115 mm[Hg] Natali Larouere BIOMEDICAL EQUIPMENT SUPPORT SPECIALIST.ENROUTE CONTROLLER Work Phone: [facility] 12-30-2023 12:29-0400 Body temperature 98.5 [degF] [facility] 12-30-2023 12:29-0400 Diastolic blood pressure 71 mm[Hg] [facility] 12-30-2023 12:29-0400 Heart rate 92 /min [facility] 12-30-2023 12:29-0400 Respiratory rate 16 /min [facility] 12-30-2023 12:29-0400 SaO2% (BldA) [Mass fraction] 99 % [facility] 12-30-2023 12:29-0400 Systolic blood pressure 108 mm[Hg] [facility] 12-30-2023 10:13-0400 Body height 170.[address] [facility] 12-30-2023 10:13-0400 Body mass index (BMI) [Ratio] 28 kg/m2 [facility] 12-30-2023 10:13-0400 Body weight 81.[address] [facility] 12-29-2023 08:53-0400 Body temperature 99 [degF] Linh Zambrano BIOMEDICAL EQUIPMENT SUPPORT SPECIALIST.ENROUTE CONTROLLER Work Phone: [facility] 12-29-2023 08:53-0400 Body weight 88 kg Linh Zambrano BIOMEDICAL EQUIPMENT SUPPORT SPECIALIST.ENROUTE CONTROLLER Work Phone: [facility] 12-29-2023 08:53-0400 Diastolic blood pressure 62 mm[Hg] Linh Zambrano BIOMEDICAL EQUIPMENT SUPPORT SPECIALIST.ENROUTE CONTROLLER Work Phone: [facility] 12-29-2023 08:53-0400 Heart rate 110 /min Linh Zambrano BIOMEDICAL EQUIPMENT SUPPORT SPECIALIST.ENROUTE CONTROLLER Work Phone: [facility] 12-29-2023 08:53-0400 Respiratory rate 18 /min Linh Zambrano BIOMEDICAL EQUIPMENT SUPPORT SPECIALIST.ENROUTE CONTROLLER Work Phone: [facility] 12-29-2023 08:53-0400 SaO2% (BldA) [Mass fraction] 99 % Linh Zambrano BIOMEDICAL EQUIPMENT SUPPORT SPECIALIST.ENROUTE CONTROLLER Work Phone: [facility] 12-29-2023 08:53-0400 Systolic blood pressure 108 mm[Hg] Linh Zambrano BIOMEDICAL EQUIPMENT SUPPORT SPECIALIST.ENROUTE CONTROLLER Work Phone: [facility] 09-15-2023 08:56-0500 Body temperature 99.19 [degF] Lynn Medina PA-C Work Phone: [facility] 09-15-2023 08:56-0500 Body weight 87.09 kg Lynn Medina PA-C Work Phone: [facility] 09-15-2023 08:56-0500 Diastolic blood pressure 68 mm[Hg] Lynn Athy PA-C Work Phone: [facility] 09-15-2023 08:56-0500 Heart rate 116 /min Lynn Athy PA-C Work Phone: [facility] 09-15-2023 08:56-0500 Respiratory rate 16 /min Lynn Athy PA-C Work Phone: [facility] 09-15-2023 08:56-0500 SaO2% (BldA) [Mass fraction] 100 % Lynn Athy PA-C Work Phone: [facility] 09-15-2023 08:56-0500 Systolic blood pressure 108 mm[Hg] Lynn Athy PA-C Work Phone: [facility] 06-13-2023 16:23-0400 Body height 172.7 cm Kim Amstadt DO Work Phone: [facility] 06-13-2023 16:23-0400 Body temperature 98.01 [degF] Kim Amstadt DO Work Phone: [facility] 06-13-2023 16:23-0400 Body weight 82.1 kg Kim Amstadt DO Work Phone: [facility] 06-13-2023 16:23-0400 Diastolic blood pressure 78 mm[Hg] Kim Amstadt DO Work Phone: [facility] 06-13-2023 16:23-0400 Heart rate 86 /min Kim Amstadt DO Work Phone: [facility] 06-13-2023 16:23-0400 SaO2% (BldA) [Mass fraction] 100 % Kim Amstadt DO Work Phone: [facility] 06-13-2023 16:23-0400 Systolic blood pressure 116 mm[Hg] Kim Amstadt DO Work Phone: [facility] 06-07-2023 16:04-0400 Heart rate 87 /min [facility] 06-07-2023 16:04-0400 Respiratory rate 18 /min [facility] 06-07-2023 16:04-0400 SaO2% (BldA) [Mass fraction] 100 % [facility] 06-07-2023 14:110400 Body height 172.[address] [facility] 06-07-2023 14:110400 Body mass index (BMI) [Ratio] 28.4 kg/m2 [facility] 06-07-2023 14:110400 Body temperature 97.2 [degF] [facility] 06-07-2023 14:110400 Body weight 84.[address] [facility] 06-07-2023 14:11-0400 Diastolic blood pressure 88 mm[Hg] [facility] 06-07-2023 14:110400 Systolic blood pressure 127 mm[Hg] [facility] 02-24-2023 07:24-0400 Body weight 81.83 kg Ladonna [place] BIOMEDICAL EQUIPMENT SUPPORT SPECIALIST.ENROUTE CONTROLLER Work Phone: [facility] 02-24-2023 07:24-0400 Diastolic blood pressure 64 mm[Hg] Ladonna Valentín BIOMEDICAL EQUIPMENT SUPPORT SPECIALIST.ENROUTE CONTROLLER Work Phone: [facility] 02-24-2023 07:24-0400 Systolic blood pressure 110 mm[Hg] Ladonna [place] BIOMEDICAL EQUIPMENT SUPPORT SPECIALIST.ENROUTE CONTROLLER Work Phone: [facility] 12-12-2022 17:19-0500 Body temperature 98.29 [degF] José Miguel Chatal BIOMEDICAL EQUIPMENT SUPPORT SPECIALIST.ENROUTE CONTROLLER Work Phone: [facility] 12-12-2022 17:19-0500 Body weight 81.65 kg José Miguel Chatal BIOMEDICAL EQUIPMENT SUPPORT SPECIALIST.ENROUTE CONTROLLER Work Phone: [facility] 12-12-2022 17:19-0500 Diastolic blood pressure 72 mm[Hg] José Miguel Chatal BIOMEDICAL EQUIPMENT SUPPORT SPECIALIST.ENROUTE CONTROLLER Work Phone: [facility] 12-12-2022 17:19-0500 Heart rate 83 /min José Miguel Chatal BIOMEDICAL EQUIPMENT SUPPORT SPECIALIST.ENROUTE CONTROLLER Work Phone: [facility] 12-12-2022 17:19-0500 Respiratory rate 18 /min José Miguel Chatal BIOMEDICAL EQUIPMENT SUPPORT SPECIALIST.ENROUTE CONTROLLER Work Phone: [facility] 12-12-2022 17:19-0500 SaO2% (BldA) [Mass fraction] 100 % José Miguel Chatal BIOMEDICAL EQUIPMENT SUPPORT SPECIALIST.ENROUTE CONTROLLER Work Phone: [facility] 12-12-2022 17:19-0500 Systolic blood pressure 110 mm[Hg] José Miguel Chatal BIOMEDICAL EQUIPMENT SUPPORT SPECIALIST.ENROUTE CONTROLLER Work Phone: [facility] 08-16-2022 10:47-0400 Body height 170.2 cm Kim Amstadt DO Work Phone: [facility] 08-16-2022 10:47-0400 Body temperature 98.49 [degF] Kim Amstadt DO Work Phone: [facility] 08-16-2022 10:47-0400 Body weight 84.42 kg Kim Amstadt DO Work Phone: [facility] 08-16-2022 10:47-0400 Diastolic blood pressure 70 mm[Hg] Kim Amstadt DO Work Phone: [facility] 08-16-2022 10:47-0400 Heart rate 89 /min Kim Amstadt DO Work Phone: [facility] 08-16-2022 10:47-0400 SaO2% (BldA) [Mass fraction] 100 % Kim Amstadt DO Work Phone: [facility] 08-16-2022 10:47-0400 Systolic blood pressure 118 mm[Hg] Kim Amstadt DO Work Phone: [facility] 05-06-2022 18:14-0400 Body height 170.2 cm Kim Amstadt DO Work Phone: [facility] 05-06-2022 18:14-0400 Body mass index (BMI) [Percentile] Per age and sex 93.63 % Kim Amstadt DO Work Phone: [facility] 05-06-2022 18:14-0400 Body temperature 98.71 [degF] Kim Amstadt DO Work Phone: [facility] 05-06-2022 18:14-0400 Body weight 86.66 kg Kim Amstadt DO Work Phone: [facility] 05-06-2022 18:14-0400 Diastolic blood pressure 68 mm[Hg] Kim Amstadt DO Work Phone: [facility] 05-06-2022 18:14-0400 Heart rate 94 /min Kim Amstadt DO Work Phone: [facility] 05-06-2022 18:14-0400 SaO2% (BldA) [Mass fraction] 98 % Kim Amstadt DO Work Phone: [facility] 05-06-2022 18:14-0400 Systolic blood pressure 124 mm[Hg] Kim Amstadt DO Work Phone: [facility] Encounters Encounter Date Encounter Type Care Provider Facility Start: 06-03-2025 End: 06-03-2025 Patient encounter procedure Arlene Narayan APRN.CNM Work Phone: OB/Gynecology Comment on above: 39 weeks gestation o f (HCC) (Primary Dx); Supervision of high risk in third trimester (HCC); Uterine size-date discrepancy, third trimester (HCC) Start: 06-03-2025 End: 06-03-2025 ambulatory [facility] Facility:[facility] Start: 06-01-2025 End: 06-01-2025 Patient encounter procedure Nicky Bryant MD Work Phone: OB/Gynecology Comment on above: Supervision of high risk in third trimester (HCC) (Primary Dx); Uterine size-date discrepancy, third trimester (HCC); 39 weeks gestation of (HCC) Start: 06-01-2025 End: 06-01-2025 ambulatory [facility] Facility:[facility] Start: 05-25-2025 End: 05-25-2025 ambulatory Serina Brown [facility] Start: 05-25-2025 End: 05-25-2025 Patient encounter procedure Serina Guevaradk [facility] Comment on above: Population Health Na vigation Outreach ( to PCP/OB/) Start: 05-24-2025 End: 05-24-2025 Patient encounter procedure Tati Bowles MD Work Phone: OB/Gynecology Comment on above: 38 weeks gestation o f (HCC) (Primary Dx); Supervision of high risk in third trimester (HCC) Start: 05-24-2025 End: 05-24-2025 ambulatory ALICIAMENDEZ GILLMAICO Facility:[facility] Start: 05-18-2025 End: 05-18-2025 ambulatory MANDY SAM Facility:[facility] Start: 05-09-2025 End: 05-09-2025 Patient encounter procedure Clare Frank MD Work Phone: OB/Gynecology Comment on above: Supervision of high risk in third trimester (HCC) (Primary Dx); 35 weeks gestation of (HCC) Start: 05-09-2025 End: 05-09-2025 ambulatory CLARE FRANK Facility:[facility] Start: 04-28-2025 End: 04-28-2025 Patient encounter procedure Tati Bowles MD Work Phone: OB/Gynecology Comment on above: 34 weeks gestation o f (HCC) (Primary Dx); Supervision of high risk in third trimester (HCC) Encounter for ultras ound to check growth (HCC) (Primary Dx); Uterine size-date discrepancy, third trimester (HCC); 34 weeks gestation of (HCC) Start: 04-28-2025 End: 04-28-2025 ambulatory ARLENE NARAYAN Facility:[facility] Start: 04-20-2025 End: 04-20-2025 Patient encounter procedure Alli Forrester APRN.CNP Work Phone: OB/Gynecology Comment on above: Supervision of high risk in third trimester (HCC) (Primary Dx); 33 weeks gestation of (HCC); Abdominal trauma, initial encounter Start: 04-20-2025 End: 04-20-2025 Telephone encounter Alli Forrester APRN.CNP Work Phone: OB/Gynecology Comment on above: Patient Question Start: 04-20-2025 End: 04-20-2025 Patient encounter procedure [facility] Work Phone: OB/Gynecology Comment on above: Supervision of high risk in third trimester (HCC) (Primary Dx); Exercise-induced asthma (HCC); Uterine size-date discrepancy, third trimester (HCC); 33 weeks gestation of (HCC) Start: 04-20-2025 End: 04-20-2025 ambulatory ALLI FORRESTER Facility:[facility] Start: 04-13-2025 End: 04-13-2025 Patient encounter procedure Arlene Narayan APRN.CNM Work Phone: OB/Gynecology Comment on above: Supervision of high risk in third trimester (HCC) (Primary Dx); 32 weeks gestation of (HCC); History of depression; Exercise-induced asthma (HCC); Uterine size-date discrepancy, third trimester (HCC) Start: 04-13-2025 End: 04-13-2025 ambulatory ARLENE NARAYAN Facility:[facility] Start: 03-28-2025 End: 03-28-2025 ambulatory ARLENE NARAYAN Facility:[facility] Start: 03-28-2025 End: 03-28-2025 Patient encounter procedure [...] Start: 03-16-2025 End: 03-16-2025 ambulatory DONTE SINGLETON Facility:[facility] Start: 02-23-2025 End: 02-23-2025 Patient encounter procedure Kamran Bassr BIOMEDICAL EQUIPMENT SUPPORT SPECIALIST.ENROUTE CONTROLLER Work Phone: [facility] [place] Comment on [...] Start: 02-20-2025 End: 02-20-2025 ambulatory DONTE SINGLETON Facility:[facility] Start: 02-16-2025 End: 02-16-2025 Patient encounter procedure Nicky Bryant MD Work Phone: OB/Gynecology Comment on above: Supervision of high risk in second trimester (HCC) (Primary Dx); Screening for diabetes mellitus; Encounter for supervision of normal first in third trimester (HCC); 24 weeks gestation of (HCC) Start: 02-16-2025 End: 02-16-2025 ambulatory DONTE SINGLETON Facility:[facility] Start: 01-21-2025 End: 01-21-2025 [facility] DONTE SINGLETON Facility:[facility] Start: 01-21-2025 End: 01-21-2025 Patient encounter procedure [employer] [facility] Comment on above: Encounter for anatomic survey (HCC) (Primary Dx); 20 weeks gestation of (HCC) 20 weeks gestation o f (HCC) (Primary Dx); Supervision of high risk in second trimester (HCC); Asthma affecting in first trimester (HCC) Start: 12-30-2024 End: 12-30-2024 Follow-up encounter Donte Singleton MD Work Phone: [facility] [place] Start: 12-29-2024 End: 12-29-2024 ambulatory DONTE SINGLETON Facility:[facility] Start: 12-29-2024 End: 12-29-2024 Patient encounter procedure Donte Singleton MD Work Phone: [facility] [place] Comment on above: Encounter for medica l examination to establish care (Primary Dx); Exercise-induced asthma; 17 weeks gestation of ; Migraine with aura, not intractable, without status migrainosus; Gastroesophageal reflux disease, unspecified whether esophagitis present Start: 12-29-2024 End: 12-29-2024 Patient encounter status Donte Singleton MD Work Phone: [facility] Work Phone: Start: 12-29-2024 End: 12-29-2024 ambulatory DONTE SINGLETON Facility:[facility] Start: 12-29-2024 Encounter for genera l adult medical examination without abnormal findings DONTE SINGLETON [facility] Start: 12-28-2024 End: 02-27-2025 Follow-up encounter Jhoana Haney MD Work Phone: OB/Gynecology Start: 12-27-2024 End: 12-27-2024 ambulatory CLARE FRANK Facility:[facility] Start: 12-27-2024 End: 12-27-2024 Patient encounter procedure Clare Frank MD Work Phone: OB/Gynecology Comment on above: Vaginal spotting (Pr imary Dx); Vaginal discharge; 16 weeks gestation of Start: 12-23-2024 End: 12-23-2024 Patient encounter procedure Alli Forrester APRN.ENROUTE CONTROLLER Work Phone: OB/Gynecology Comment on above: Supervision of high risk in second trimester (Primary Dx); 16 weeks gestation of Start: 12-23-2024 End: 12-23-2024 ambulatory Alli Forrester APRN.CNP Work Phone: OB/Gynecology Comment on above: Itching Start: 12-23-2024 End: 12-23-2024 E-mail encounter from caregiver Alli Forrester APRN.CNP Work Phone: OB/Gynecology Start: 12-15-2024 End: 12-15-2024 ambulatory DONTE SINGLETON Facility:[facility] Start: 12-15-2024 End: 12-15-2024 Patient encounter procedure Donte Singleton MD Work Phone: [facility] [place] Comment on above: Mild intermittent as thma with acute exacerbation (Primary Dx); 15 weeks gestation of Start: 12-02-2024 End: 12-02-2024 Telephone encounter Tati Bowles MD Work Phone: OB/Gynecology Comment on above: OB SOB, CP Start: 12-02-2024 End: 12-02-2024 Emergency department patient visit BERNY FAIR Facility:[facility] Start: 11-26-2024 End: 11-26-2024 ambulatory ALLI FORRESTER Facility:[facility] Start: 11-26-2024 End: 11-26-2024 Patient encounter procedure [...] 11-22-2024 End: 01-22-2025 Follow-up encounter Alli Forrester APRN.ENROUTE CONTROLLER Work Phone: OB/Gynecology Start: 11-15-2024 End: 11-15-2024 ambulatory ALLI FORRESTER Facility:[facility] Start: 11-10-2024 End: 11-10-2024 Telephone encounter Nicky Bryant MD Work Phone: OB/Gynecology Comment on above: Question (OB Questio n) Start: 11-05-2024 End: 11-05-2024 ambulatory ALLI FORRESTER Facility:[facility] Start: 11-04-2024 End: 11-05-2024 ambulatory Alli Forrester APRN.ENROUTE CONTROLLER Work Phone: OB/Gynecology Start: 11-04-2024 End: 11-05-2024 Letter encounter Alli Forrester APRN.ENROUTE CONTROLLER Work Phone: OB/Gynecology Comment on above: Jury Duty Excuse Ana Lilia grove Start: 10-27-2024 End: 10-27-2024 ambulatory ALLI FORRESTER Facility:[facility] Start: 10-27-2024 End: 10-27-2024 Patient encounter procedure Alliparrish Carreraperico MUNOZ.ENROUTE CONTROLLER Work Phone: OB/Gynecology Comment on above: Encounter [...] Start: 08-23-2024 End: 08-23-2024 ambulatory KIM WARD Facility:[facility] Start: 08-23-2024 End: 08-23-2024 Telephone encounter Kim Ward DO Work Phone: [address] [place] [address] Comment on above: Patient Update (Pt w as informed lab orders are in.) Start: 07-25-2024 End: 07-25-2024 Orders Only Zoe Moreira APRN.ENROUTE CONTROLLER Work Phone: [facility] Start: 07-24-2024 End: 07-24-2024 ambulatory KIM WARD Facility:[facility] Start: 07-24-2024 End: 07-24-2024 Patient encounter procedure Shmuel Merlos BIOMEDICAL EQUIPMENT SUPPORT SPECIALIST.ENROUTE CONTROLLER Work Phone: [facility] Comment on above: Acute cystitis with hematuria (Primary Dx) Start: 05-16-2024 End: 05-16-2024 Patient encounter procedure Elvira Carr PA-C Work Phone: [facility] Comment on above: UTI symptoms (Primar y Dx); Dysuria Start: 02-24-2024 End: 02-24-2024 ambulatory KIMRoverto WARD Facility:[id number] Start: 02-24-2024 End: 02-24-2024 Patient encounter procedure [facility] Comment on above: Unspecified injury o f neck, initial encounter (Primary Dx) Start: 02-23-2024 End: 02-23-2024 Patient encounter procedure Natali Michel APRN.ENROUTE CONTROLLER Work Phone: [facility] Comment on above: Headache, unspecifie d headache type (Primary Dx); Neck pain; Injury of neck, initial encounter Start: 02-12-2024 Orders Only Ann Marie morillo APRN.ENROUTE CONTROLLER Work Phone: [facility] Comment on above: Vitamin D deficiency Start: 12-30-2023 ambulatory Kim Rubydt DO Work Phone: [facility] Comment on above: Chest Pain Start: 12-30-2023 End: 12-30-2023 Emergency department patient visit [facility] Work Phone: Start: 12-29-2023 End: 12-29-2023 Patient encounter procedure Linh Zambrano APRN.ENROUTE CONTROLLER Work Phone: [facility] Comment on above: Sore throat (Primary Dx); Viral pharyngitis Start: 11-27-2023 End: 11-27-2023 Patient encounter procedure Kelsie Beard OD Work Phone: Ophthalmology Comment on above: Myopia, bilateral (P rimary Dx); Regular astigmatism of both eyes Start: 10-22-2023 End: 08-24-2024 ambulatory Ana Luisa El RN [facility] Comment on above: Finger Injury Start: 09-18-2023 Telephone encounter Khari landry debone supervisor Health Comment on above: [facility] Start: 09-15-2023 Telephone encounter Akbar blake MD Work Phone: Occupational Health Comment on above: [facility] Start: 09-15-2023 End: 09-15-2023 Patient encounter procedure Lynn Medina PA-C Work Phone: [facility] Comment on above: Viral URI with cough (Primary Dx) Start: 07-17-2023 End: 07-17-2023 Patient encounter procedure Syncope Opd Nurse Work Phone: Cardiology Comment on above: Syncope, unspecified syncope type (Primary Dx) Start: 07-10-2023 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 Comment on above: Appointment; Patient Update Orders Start: 06-13-2023 End: 06-13-2023 Office outpatient visit 25 minutes Kim Venusroney DO Work Phone: [facility] Comment on above: Syncope, unspecified syncope type (Primary Dx); Eating disorder, unspecified type Start: 06-09-2023 ambulatory Kim Donovantadt DO Work Phone: [facility] Start: 06-09-2023 Follow-up encounter Kim hennessy DO Work Phone: [facility] Comment on above: Emergency department visit follow up Start: 06-07-2023 End: 06-07-2023 Emergency department patient visit [facility] Work Phone: Start: 02-24-2023 End: 02-24-2023 Patient encounter procedure Ladonna Laura BIOMEDICAL EQUIPMENT SUPPORT SPECIALIST.ENROUTE CONTROLLER Work Phone: OB/Gynecology Comment on above: Irregular menstrual cycle (Primary Dx) Start: 01-06-2023 End: 01-06-2023 Patient encounter procedure Herminia Yee OD Work Phone: Ophthalmology Comment on above: Vitreous floaters of right eye (Primary Dx) Start: 12-12-2022 End: 12-12-2022 Patient encounter procedure José Miguel Bunhc APRN.ENROUTE CONTROLLER Work Phone: [facility] Comment on above: Acute otitis media, right (Primary Dx) Start: 10-23-2022 Refill Kim Venusroney DO Work Phone: [facility] Start: 10-08-2022 End: 10-08-2022 Patient encounter procedure Makeda Grey AUD Work Phone: Audiology Comment on above: Abnormal auditory pe rception, unspecified laterality (Primary Dx) Start: 09-04-2022 End: 09-04-2022 Orders Only Jacques Hu DO Work Phone: Cardiology Comment on above: Lightheadedness (Yareli derik Dx); Vasovagal syncope; Palpitations Event (Zio Patch) Start: 08-16-2022 End: 08-16-2022 Patient encounter procedure Kim Ward DO Work Phone: [facility] Comment on above: Encounter for initia l prescription of Nexplanon (Primary Dx) Start: 06-04-2022 Orders Only Jacques nunez DO Work Phone: Cardiology Comment on above: Syncope, unspecified syncope type (Primary Dx) Start: 05-06-2022 End: 05-06-2022 Patient encounter procedure Kim Rubyadriel DO Work Phone: [facility] Comment on above: Syncope, unspecified syncope type [...] encounter status Kim Ward DO Work Phone: [facility] Procedures Date Procedure Procedure Detail Performing Clinician Start: 06-03-2025 Urnls dip stick/tabl et rgnt non-auto w/o micrscp Arlene Narayan APRN.CNM Work Phone: Start: 06-01-2025 Urnls dip stick/tabl et rgnt non-auto w/o micrscp Nicky Bryant MD Work Phone: Start: 05-09-2025 Urnls dip stick/tabl et rgnt non-auto w/o micrscp Calre Frank MD Work Phone: Start: 04-28-2025 Urnls dip stick/tabl et rgnt non-auto w/o micrscp Tati Bowles MD Work Phone: Start: 04-28-2025 Us preg uterus after 1st trimest 1/ gestation Arlene Narayan BIOMEDICAL EQUIPMENT SUPPORT SPECIALIST.RIKA Work Phone: Start: 02-20-2025 STREP A MOLECULAR (POC) Chris Alford PA-C Work Phone: Start: 01-21-2025 Us preg uterus after 1st trimest 1/ gestation Alli Forrester APRN.ENROUTE CONTROLLER Work Phone: Start: 11-26-2024 Us preg uterus after 1st trimest 1/ gestation Alli Forrester APRN.ENROUTE CONTROLLER Work Phone: Start: 11-05-2024 Antibody screen [facility] Comment on above: Order Comment: Speci men Type: BLOOD SPECIMENOrdering Facility: [facility] Address: [address] [place] [address] Performed By: #### T SPN ####CC MAIN [facility] [id number] [address] [place] Start: 10-27-2024 Us uterus l imited 1 fetuses Alli Forrester APRN.ENROUTE CONTROLLER Work Phone: Start: 10-27-2024 Adult depression scr eening assessment Alli Forrester APRN.ENROUTE CONTROLLER Work Phone: Start: 07-24-2024 UA DIP,URINE HCG [...] DTaP,Tdap,Td Vaccine (8 - Td or Tdap) [facility] Start: 10-27-2027 Screening for malign ant neoplasm of cervix Cervical Cancer Screening [facility] Start: 12-29-2026 Asthma Action Plan Asthma Action Robert n [facility] Start: 02-23-2026 Annual PCP Team Signal Fitter brit Disease Visit Annual PCP Team Chronic Disease Visit [facility] Start: 01-04-2026 End: 01-04-2026 Patient encounter procedure 01/04/2026 10:00 AM EDT Office Visit [facility] [place] [address], [place] [address] PodlogarLexy APRN.ENROUTE CONTROLLER [address] [place] [address] annual physical [facility] [place] Comment on above: annual physical Start: 12-29-2025 Annual PCP Team Signal Fitter brit Disease Visit Annual PCP Team Chronic Disease Visit [facility] Start: 12-29-2025 Covid-19 Vaccine ( season) Covid-19 Vaccine () [facility] Comment on above: Postponed from 06/13 (Declined at this time) Start: 12-29-2025 Spirometry Spirometry [facility] Comment on above: Postponed from 02/14 (Declined at this time) Start: 12-15-2025 Annual PCP Team Signal Fitter brit Disease Visit Annual PCP Team Chronic Disease Visit [facility] Start: 10-27-2025 Anxiety Screening Anxiety Screening [facility] Start: 10-27-2025 Depression Screening Depression Scre ening [facility] Start: 10-27-2025 GC (Gonorrhea) Scree taisha (18-24) GC (Gonorrhea) Screening (18-24) [facility] Start: 10-27-2025 Screening for Chlamy twila trachomatis Chlamydia Screening (18-) [facility] Start: 07-01-2025 Asthma Control Test Asthma Control T est [facility] Comment on above: Postponed from 02/14 (Postponed To Appropriate Date) Start: 06-13-2025 Influenza vaccination Influenza Vacc ine (#1) [facility] Start: 06-08-2025 End: 06-08-2025 Patient encounter procedure 06/08/2025 11:10 AM EDT Routine Office Visit OB/Gynecology [address] [place] [address] Nicky Connell MD [address] [place] [address] OB OB/Gynecology Comment on above: OB Start: 06-03-2025 End: 06-03-2025 Patient encounter procedure 06/03/2025 10:20 AM EDT Routine Office Visit OB/Gynecology [address] [place] [address] Tati Bowles MD [address] [place] [address] OB OB/Gynecology Comment on above: OB Start: 06-01-2025 End: 06-01-2025 Patient encounter procedure 06/01/2025 10:50 AM EDT Routine Office Visit OB/Gynecology [address] [place] [address] Nicky Connell MD [address] [place] [address] OB OB/Gynecology Comment on above: OB Start: 05-24-2025 End: 05-24-2025 Patient encounter procedure 05/24/2025 11:10 AM EDT Routine Office Visit OB/Gynecology [address] [place] [address] Tati Bowles MD [address] [place] [address] OB OB/Gynecology Comment on above: OB Start: 05-18-2025 End: 05-18-2025 Patient encounter procedure 05/18/2025 1:10 PM EDT Routine Office Visit OB/Gynecology [address] [place] [address] Mandy Sam MD [address] [place] [address] OB OB/Gynecology Comment on above: OB Start: 05-12-2025 Urine microalbumin profile [facility] Start: 05-10-2025 End: 05-10-2025 Patient encounter procedure 05/10/2025 11:40 AM EDT Routine Office Visit OB/Gynecology [address] [place] [address] Nicky Connell MD [address] [place] [address] OB OB/Gynecology Comment on above: OB Start: 04-28-2025 End: 04-28-2025 Patient encounter procedure Maternal Medicine Comment on above: Growth Growth/OB Start: 04-13-2025 End: 04-13-2026 OBSTETRIC ULTRASOUND WHI OBSTETRIC ULTRASOUND WHI Anc Imaging Routine Supervision of high risk in third trimester (HCC) 32 weeks gestation of (HCC) Uterine size-date discrepancy, third trimester (HCC) Expected: 04/13/2025, Expires: 04/13/2026 [facility] Work Phone: Comment on above: Expected: 04/13/2025 , Expires: 04/13/2026 Start: 04-13-2025 End: 04-13-2025 Patient encounter procedure 04/13/2025 8:00 AM EDT Routine Office Visit OB/Gynecology [address] [place] [address] Arlene Narayan APRN.CN [address] [place] [address] [facility] OB/Gynecology Comment on above: [facility] Start: 03-28-2025 End: 03-28-2025 Patient encounter procedure 03/28/2025 11:15 AM EDT Routine Office Visit OB/Gynecology [address] [place] [address] Arlene Narayan APRN.CNM [address] [place] [address] OB OB/Gynecology Comment on above: OB Start: 03-19-2025 End: 06-18-2025 ANEMIA REFLEX PANEL ANEMIA REFLEX PANEL Lab Routine Encounter for supervision of normal first in third trimester (HCC) Expected: 03/19/2025, Expires: 06/18/2025 [facility] Comment on above: Expected: 03/19/2025 , Expires: 06/18/2025 Start: 03-19-2025 End: 02-16-2026 GESTATIONAL GLUCOSE SCREEN, 1-HOUR, 50 GRAM, NON-FASTING GESTATIONAL GLUCOSE SCREEN, 1-HOUR, 50 GRAM, NON-FASTING Lab Routine Screening for diabetes mellitus Expected: 03/19/2025, Expires: 02/16/2026 [facility] Work Phone: Comment on above: Expected: 03/19/2025 , Expires: 02/16/2026 Start: 03-19-2025 End: 02-16-2026 SYPHILIS TREPONEMAL W/REFLEX SYPHILIS TREPONEMAL W/REFLEX Lab Routine Encounter for supervision of normal first in third trimester (HCC) Expected: 03/19/2025, Expires: 02/16/2026 [facility] Comment on above: Expected: 03/19/2025 , Expires: 02/16/2026 Start: 03-16-2025 End: 03-16-2025 Patient encounter procedure 03/16/2025 8:00 AM EDT Routine Office Visit OB/Gynecology [address] [place] [address] Arlene Narayan APRN.CNSonido [address] [place] [address] OB OB/Gynecology Comment on above: OB Start: 03-16-2025 End: 03-16-2025 ambulatory 03/16/2025 7:45 AM EDT Results Only [facility] [address] [place] [address] Glucose Test [facility][1] Laboratory Comment on above: Glucose Test Start: 02-16-2025 End: 02-16-2025 Patient encounter procedure 02/16/2025 9:00 AM EDT Routine Office Visit OB/Gynecology [address] [place] [address] Nicky Connell MD [address] [place] [address] OB OB/Gynecology Comment on above: OB Start: 01-21-2025 End: 01-21-2025 Patient encounter procedure Maternal Medicine Comment on above: Anatomy Anatomy/OB Start: 01-19-2025 End: 01-19-2025 Patient encounter procedure 01/19/2025 9:00 AM EDT Office Visit [facility] [place] [address] [place] [address] Donte Singleton MD [address] [facility] [place] [address] TO EST [facility] [place] Comment on above: TO EST Start: 01-18-2025 End: 01-18-2025 Patient encounter procedure Maternal Medicine Comment on above: Anatomy Anatomy/OB Start: 01-05-2025 End: 01-05-2025 Patient encounter procedure 01/05/2025 9:00 AM EDT Office Visit [facility] [place] [address] [place] [address] Donte Singleton MD [address] [facility] [place] [address] TO EST [facility] [place] Comment on above: TO EST Start: 12-29-2024 End: 03-30-2025 CBC W Auto Differential panel - Blood [facility] Work Phone: Comment on above: Expected: 12/29/2024 , Expires: 03/30/2025 Start: 12-29-2024 End: 03-30-2025 Comprehensive metabolic 2000 panel - Serum or Plasma [facility] Comment on above: Expected: 12/29/2024 , Expires: 03/30/2025 Start: 12-29-2024 End: 03-30-2025 LIPID PANEL, NONFASTING [facility] Comment on above: Expected: 12/29/2024 , Expires: 03/30/2025 Start: 12-29-2024 End: 12-29-2024 Patient encounter procedure 12/29/2024 10:40 AM EDT Office Visit Family [facility] [place] [address] [place] [address] Donte Singleton MD [address] [facility] [place] [id number] TO [facility] [place] Comment on above: TO [...] of eating disorder Expected: 10/27/2024, Expires: 01/26/2025 [facility] Work Phone: Comment on above: Expected: 10/27/2024 , Expires: 01/26/2025 Start: 10-27-2024 End: 01-26-2025 CARRIER SCREEN, STANDARD CARRIER SCREEN, STANDARD Lab Routine Encounter for supervision of high risk in first trimester, antepartum 8 weeks gestation of Expected: 10/27/2024, Expires: 01/26/2025 [facility] Comment on above: Expected: 10/27/2024 , Expires: 01/26/2025 Start: 10-27-2024 End: 01-26-2025 Chromosome 21 trisomy [Presence] in Blood or Tissue by Cytogenetics [id number] PLUS Lab Routine Encounter for supervision of high risk in first trimester, antepartum 8 weeks gestation of Expected: 10/27/2024, Expires: 01/26/2025 [facility] Comment on above: Expected: 10/27/2024 , Expires: 01/26/2025 Start: 10-27-2024 End: 01-26-2025 Hemoglobin A1c in Blood HEMOGLOBIN A1C Lab Routine Encounter for supervision of high risk in first trimester, antepartum 8 weeks gestation of with uncertain dates in first trimester History of eating disorder Expected: 10/27/2024, Expires: 01/26/2025 [facility] Comment on above: Expected: 10/27/2024 , Expires: 01/26/2025 Start: 10-27-2024 End: 01-26-2025 HEMOGLOBIN EVALUATION CASCADE HEMOGLOBIN EVALUATION CASCADE Lab Routine Encounter for supervision of high risk in first trimester, antepartum 8 weeks gestation of Expected: 10/27/2024, Expires: 01/26/2025 [facility] Comment on above: Expected: 10/27/2024 , Expires: 01/26/2025 Start: 10-27-2024 End: 01-26-2025 Hepatitis B virus surface Ag [Presence] in Serum HEPATITIS B SURFACE ANTIGEN Lab Routine Encounter for supervision of high risk in first trimester, antepartum 8 weeks gestation of with uncertain dates in first trimester History of eating disorder Expected: 10/27/2024, Expires: 01/26/2025 [facility] Comment on above: Expected: 10/27/2024 , Expires: 01/26/2025 Start: 10-27-2024 End: 01-26-2025 Hepatitis C virus Ab [Presence] in Serum HEPATITIS C ANTIBODY IA WITH CONFIRMATION Lab Routine Encounter for supervision of high risk in first trimester, antepartum 8 weeks gestation of with uncertain dates in first trimester History of eating disorder Expected: 10/27/2024, Expires: 01/26/2025 [facility] Comment on above: Expected: 10/27/2024 , Expires: 01/26/2025 Start: 10-27-2024 End: 01-26-2025 HIV 1+2 Ab [Presence] in Serum or Plasma by Immunoassay HIV 1/2 COMBO WITH REFLEX TO DIFFERENTIATION Lab Routine Encounter for supervision of high risk in first trimester, antepartum 8 weeks gestation of with uncertain dates in first trimester History of eating disorder Expected: 10/27/2024, Expires: 01/26/2025 [facility] Comment on above: Expected: 10/27/2024 , Expires: 01/26/2025 Start: 10-27-2024 End: 10-27-2025 OBSTETRIC ULTRASOUND WHI OBSTETRIC ULTRASOUND WHI Anc Imaging Routine Encounter for supervision of high risk in first trimester, antepartum 8 weeks gestation of with uncertain dates in first trimester History of eating disorder Expected: 10/27/2024, Expires: 10/27/2025 [facility] Comment on above: Expected: 10/27/2024 , Expires: 10/27/2025 Start: 10-27-2024 End: 01-26-2025 RUBELLA IGG ANTIBODY RUBELLA IGG ANTIBODY Lab Routine Encounter for supervision of high risk in first trimester, antepartum 8 weeks gestation of with uncertain dates in first trimester History of eating disorder Expected: 10/27/2024, Expires: 01/26/2025 [facility] Comment on above: Expected: 10/27/2024 , Expires: 01/26/2025 Start: 10-27-2024 End: 01-26-2025 SYPHILIS TREPONEMAL W/REFLEX SYPHILIS TREPONEMAL W/REFLEX Lab Routine Encounter for supervision of high risk in first trimester, antepartum 8 weeks gestation of with uncertain dates in first trimester History of eating disorder Expected: 10/27/2024, Expires: 01/26/2025 [facility] Comment on above: Expected: 10/27/2024 , Expires: 01/26/2025 Start: 10-27-2024 End: 01-26-2025 TYPE + SCREEN TYPE + SCREEN Blood Bank Routine Encounter for supervision of high risk in first trimester, antepartum 8 weeks gestation of with uncertain dates in first trimester History of eating disorder Expected: 10/27/2024, Expires: 01/26/2025 [facility] Comment on above: Expected: 10/27/2024 , Expires: 01/26/2025 Start: 09-10-2024 Annual PCP Team Signal Fitter brit Disease Visit Annual PCP Team Chronic Disease Visit [facility] Start: 08-23-2024 End: 11-22-2024 25-hydroxyvitamin D3 [Mass/volume] in Serum or Plasma [facility] Work Phone: Comment on above: Expected: 08/23/2024 , Expires: 11/22/2024 Start: 06-13-2024 Covid-19 Vaccine () Covid-19 Vaccine () [facility] Start: 06-13-2024 Influenza vaccination Influenza Vacc ine (#1) [facility] Start: 05-14-2024 End: 08-13-2024 25-hydroxyvitamin D3 [Mass/volume] in Serum or Plasma VITAMIN D 25 HYDROXY Lab Routine Vitamin D deficiency Expected: 05/14/2024 (Approximate), Expires: 08/13/2024 [facility] Work Phone: Comment on above: Expected: 05/14/2024 (Approximate), Expires: 08/13/2024 Start: 02-15-2024 Screening for malign ant neoplasm of cervix [facility] Start: 06-13-2023 Covid-19 Vaccine () Covid-19 Vaccine () [facility] Start: 06-13-2023 End: 08-13-2023 Ferritin [Mass/volume] in Serum or Plasma [facility] Work Phone: Comment on above: Expected: 06/13/2023 , Expires: 08/13/2023 Start: 06-13-2023 Influenza vaccination C [facility] Start: 06-13-2023 End: 08-13-2023 Iron and Iron binding capacity panel - Serum or Plasma [facility] Work Phone: Comment on above: Expected: 06/13/2023 , Expires: 08/13/2023 Start: 05-06-2023 Adult depression screening assessment DEPRESSION SCREENING [facility] Start: 06-13-2022 Influenza vaccination INFLUENZA (#1) [facility] Start: 05-06-2022 End: 07-06-2022 Chlamydia trachomatis+Neisseria gonorrhoeae DNA [Presence] in Urine by LUCIA with probe detection GC/CHLAMYDIA AMPLIF, URINE Microbiology Routine Screening for STD (sexually transmitted disease) Expected: 05/06/2022, Expires: 07/06/2022 [facility] Work Phone: Comment on above: Expected: 05/06/2022 , Expires: 07/06/2022 Start: 05-06-2022 End: 07-06-2022 Comprehensive metabolic 2000 panel - Serum or Plasma COMP METABOLIC PANEL Lab Routine Well female exam without gynecological exam Expected: 05/06/2022, Expires: 07/06/2022 [facility] Work Phone: Comment on above: Expected: 05/06/2022 , Expires: 07/06/2022 Start: 05-06-2022 End: 07-06-2022 Hepatitis C virus Ab [Presence] in Serum HEP C AB IA W/CONF SCRN Lab Routine Special screening examination for viral disease Expected: 05/06/2022, Expires: 07/06/2022 [facility] Work Phone: Comment on above: Expected: 05/06/2022 , Expires: 07/06/2022 Start: 05-06-2022 End: 07-06-2022 HIV 1+2 Ab [Presence] in Serum or Plasma by Immunoassay HIV 1 2 COMBO(AG/AB),WITH REFLEX TO DIFFERENTIATION Lab Routine Screening for HIV (human immunodeficiency virus) Expected: 05/06/2022, Expires: 07/06/2022 [facility] Work Phone: Comment on above: Expected: 05/06/2022 , Expires: 07/06/2022 Start: 07-13-2021 COVID-19 VACCINE (3 - Booster for Pfizer series) COVID-19 VACCINE (3 - Booster for Pfizer series) [facility] Start: 04-07-2021 COVID-19 VACCINE (3 - Booster for Pfizer series) COVID-19 VACCINE (3 - Booster for Pfizer series) [facility] Start: 04-07-2021 COVID-19 VACCINE (3 - Pfizer series) COVID-19 VACCINE (3 - Pfizer series) [facility] Start: 2021 Anxiety Screening Anxiety Screening [facility] Start: 2021 CHLAMYDIA SCREENING (18-24) CHLAMYDIA SCREENING (18-24) [facility] Start: 2021 Depression Screening Depression Scre ening [facility] Start: 2021 GC (GONORRHEA) SCREE TAISHA (18-24) GC (GONORRHEA) SCREENING (18-24) [facility] Start: 2021 HEPATITIS C SCREENING HEPATITIS C SC SU [facility] Start: 2021 HIV SCREENING HIV SCREENING [facility] Start: 2021 Screening for Chlamy twila trachomatis Chlamydia Screening (18) [facility] Start: 2021 Spirometry Spirometry [facility] Start: 2017 PEDS TO ADULT TRANSI TION ANNUAL ASSESSMENT PEDS TO ADULT TRANSITION ANNUAL ASSESSMENT [facility] Start: 2015 PEDS TO ADULT TRANSI TION INITIAL DISCUSSION PEDS TO ADULT TRANSITION INITIAL DISCUSSION [facility] Start: 2007 Asthma Control Test Asthma Control T est [facility] Start: 2005 Asthma Action Plan Asthma Action Robert n [facility] Bacteria identified in Urine by Culture URINE CULTURE Microbiology Routine Dysuria UTI symptoms Ordered: 05/16/2024 [facility] Work Phone: Comment on above: Ordered: 05/16/2024 Bacteria identified in Urine by Culture URINE CULTURE Microbiology Routine Acute cystitis with hematuria Ordered: 07/24/2024 [facility] Work Phone: Comment on above: Ordered: 07/24/2024 Bacteria identified in Urine by Culture BACTERIAL CULTURE, URINE Microbiology Routine Encounter for supervision of high risk in first trimester, antepartum 8 weeks gestation of with uncertain dates in first trimester History of eating disorder 10/27/2024 10:01 AM EST [facility] BACTERIAL VAGINOSIS NAAT BACTERI AL VAGINOSIS NAAT Lab Routine Vaginal discharge 12/27/2024 12:20 PM EDT [facility] Work Phone: JIM/TRICHOMONAS NAAT JIM /TRICHOMONAS NAAT Lab Routine Vaginal discharge 12/27/2024 12:20 PM EDT [facility] Cardiovascular funct ion eval w/tilt table w/mntr TILT TABLE EVALUATION Cardiology Routine Lightheadedness Ordered: 07/11/2023 [facility] Work Phone: Comment on above: Ordered: 07/11/2023 Chlamydia trachomatis+Neisseria gonorrhoeae DNA [Presence] in Unspecified specimen by LUCIA with probe detection GONORRHEA/CHLAMYDIA NAAT Lab Routine Encounter for supervision of high risk in first trimester, antepartum 8 weeks gestation of with uncertain dates in first trimester History of eating disorder 10/27/2024 10:01 AM [facility] COVID & INFLUENZA A/ B & RSV NAAT, ROUTINE COVID & INFLUENZA A/B & RSV NAAT, ROUTINE Microbiology Routine Viral URI with cough 09/15/2023 9:55 AM [facility] Work Phone: End: 06-04-2023 ECG COMPLETE ECG COMPLETE ECG Routine Syncope, unspecified syncope type 1 Occurrences starting 06/04/2022 until 06/04/2023 [facility] Work Phone: Comment on above: 1 Occurrences starti ng 06/04/2022 until 06/04/2023 NEXPLANON REMOVAL NEXPLANON KATHY JOHNNA Procedures Routine Irregular menstrual cycle Ordered: 02/24/2023 [facility] Work Phone: Comment on above: Ordered: 02/24/2023 OUTSIDE VENDOR CARDI AC OUTPATIENT EXTENDED RHYTHM RECORDING (WITHOUT TELEMETRY) OUTSIDE VENDOR CARDIAC OUTPATIENT EXTENDED RHYTHM RECORDING (WITHOUT TELEMETRY) Holter Routine Lightheadedness Vasovagal syncope Palpitations Ordered: 09/04/2022 [facility] Work Phone: Comment on above: Ordered: 09/04/2022 PAP TEST PAP TEST Lab Ryan cohn Encounter for supervision of high risk in first trimester, antepartum 8 weeks gestation of with uncertain dates in first trimester History of eating disorder 10/27/2024 10:01 AM [facility] Patient Education [facility] Work Phone: Patient referral [facility] Work Phone: RAPID STREP TEST B/O RAPID STREP TEST B/O Lab Routine Sore throat Ordered: 12/29/2023 [facility] Work Phone: Comment on above: Ordered: 12/29/2023 URINE OB DIP B/O URINE OB DIP B/ O Lab Routine 38 weeks gestation of (HCC) Supervision of high risk in third trimester (HCC) Ordered: 05/24/2025 [facility] Work Phone: Comment on above: Ordered: 05/24/2025 Urine test visual color cmprsn meths HCG QUAL UR B/O Lab Routine Acute cystitis with hematuria Ordered: 07/24/2024 [facility] Comment on above: Ordered: 07/24/2024 [facility] Immunizations Immunization Date Immunization Notes Care Provider Erika castro 07-21-2024 influenza, seasonal, injectable, preservative free Shmuel Merlos APRN.ENROUTE CONTROLLER Work Phone: [facility] 07-21-2024 influenza virus vaccine, unspecified formulation Arlene Narayan BIOMEDICAL EQUIPMENT SUPPORT SPECIALIST.CNM Work Phone: [facility] 10-22-2023 tetanus toxoid, redu princess diphtheria toxoid, and acellular pertussis vaccine, adsorbed Kelsie Beard OD Work Phone: [facility] 07-22-2023 influenza virus vaccine, unspecified formulation Lynn Medina PA-C Work Phone: [facility] 08-09-2022 influenza virus vaccine, unspecified formulation Kim Ward DO Work Phone: [facility] 05-06-2022 Human Papillomavirus 9-valent vaccine Kim Ward DO Work Phone: [facility] 07-12-2021 influenza virus vaccine, unspecified formulation Kim Amsroney DO Work Phone: [facility] 06-29-2020 influenza, injectabl e, quadrivalent, preservative free Donte Singleton MD Work Phone: [facility] 04-20-2020 meningococcal polysaccharide (groups A, C, Y and W-135) diphtheria toxoid conjugate vaccine (MCV4P) Kim Ward DO Work Phone: [facility] Work Phone: 08-03-2018 influenza, injectabl e, quadrivalent, contains preservative Donte Singleton MD Work Phone: [facility] 07-14-2017 influenza, injectabl e, quadrivalent, preservative free Donte Singleton MD Work Phone: [facility] 07-31-2016 influenza, injectable,quadrivalent , preservative free, pediatric Donte Singleton MD Work Phone: [facility] 11-27-2015 Human Papillomavirus 9-valent vaccine Donte Singleton MD Work Phone: [facility] 08-10-2015 Human Papillomavirus 9-valent vaccine Donte Singleton MD Work Phone: [facility] 08-10-2015 influenza, seasonal, injectable, preservative free Kim Ward DO Work Phone: [facility] Work Phone: 05-12-2015 human papilloma viru s vaccine, quadrivalent Kimroverto Ward DO Work Phone: [facility] Work Phone: 05-12-2015 meningococcal polysaccharide (groups A, C, Y and W-135) diphtheria toxoid conjugate vaccine (MCV4P) Kimroverto Ward DO Work Phone: [facility] Work Phone: 05-12-2015 tetanus toxoid, redu princess diphtheria toxoid, and acellular pertussis vaccine, adsorbed Kimroverto Ward DO Work Phone: [facility] Work Phone: 08-11-2014 influenza, live, intranasal, quadrivalent Donte Singleton MD Work Phone: [facility] 05-30-2014 hepatitis A vaccine, pediatric/adolescent dosage, 2 dose schedule Kim Ward DO Work Phone: [facility] Work Phone: 06-02-2013 influenza virus vaccine, live, attenuated, for intranasal use Kim Ward DO Work Phone: [facility] Work Phone: 06-27-2012 influenza virus vaccine, live, attenuated, for intranasal use Kim Cloudfinder DO Work Phone: [facility] Work Phone: 11-11-2011 hepatitis A vaccine, pediatric/adolescent dosage, 2 dose schedule Kim Cloudfinder DO Work Phone: [facility] Work Phone: 05-27-2011 influenza virus vaccine, live, attenuated, for intranasal use [facility] Work Phone: 05-29-2010 influenza virus vaccine, live, attenuated, for intranasal use Kim UbertestersKnodium DO Work Phone: [facility] Work Phone: 09-18-2009 novel [id number], preservative-free, injectable Kim UbertestersKnodium DO Work Phone: [facility] Work Phone: 07-15-2009 influenza virus vaccine, live, attenuated, for intranasal use [facility] Work Phone: [facility] Work Phone: 07-21-2008 influenza virus vaccine, live, attenuated, for intranasal use Kim UbertesterstaKnodium DO Work Phone: [facility] Work Phone: 02-04-2008 diphtheria, tetanus toxoids and acellular pertussis vaccine, 5 pertussis antigens Kim UbertestersKnodium DO Work Phone: [facility] Work Phone: 02-04-2008 measles, mumps and rubella virus vaccine Kim Amstadt DO Work Phone: [facility] Work Phone: 02-04-2008 poliovirus vaccine, inactivated Kim Cloudfinder DO Work Phone: [facility] Work Phone: 02-04-2008 varicella virus vaccine [place] i Amstadt DO Work Phone: [facility] Work Phone: 08-21-2004 pneumococcal conjuga te vaccine, 7 valent Kim Amstadt DO Work Phone: [facility] Work Phone: 08-21-2004 poliovirus vaccine, unspecified formulation Donte Singleton MD Work Phone: [facility] 05-24-2004 diphtheria, tetanus toxoids and acellular pertussis vaccine, unspecified formulation Kim Amstadt DO Work Phone: [facility] Work Phone: 05-24-2004 haemophilus influenz ae type b vaccine, conjugate unspecified formulation Kim Amstadt DO Work Phone: [facility] Work Phone: 03-24-2004 measles, mumps and rubella virus vaccine Kim Amstadt DO Work Phone: [facility] Work Phone: 03-24-2004 varicella virus vaccine [place] i Amstadt DO Work Phone: [facility] Work Phone: 2003 hepatitis B vaccine, pediatric or pediatric/adolescent dosage Kim Amstadt DO Work Phone: [facility] Work Phone: 2003 diphtheria, tetanus toxoids and acellular pertussis vaccine, unspecified formulation Kim Amstadt DO Work Phone: [facility] Work Phone: 2003 haemophilus influenz ae type b vaccine, conjugate unspecified formulation Kim Amstadt DO Work Phone: [facility] Work Phone: 2003 pneumococcal conjuga te vaccine, 7 valent Kim Amstadt DO Work Phone: [facility] Work Phone: 2003 diphtheria, tetanus toxoids and acellular pertussis vaccine, unspecified formulation Kim Amstadt DO Work Phone: [facility] Work Phone: 2003 haemophilus influenz ae type b vaccine, conjugate unspecified formulation Kim Amstadt DO Work Phone: [facility] Work Phone: 2003 pneumococcal conjuga te vaccine, 7 valent Kim Amstadt DO Work Phone: [facility] Work Phone: 2003 poliovirus vaccine, unspecified formulation Donte Singleton MD Work Phone: [facility] 2003 diphtheria, tetanus toxoids and acellular pertussis vaccine, unspecified formulation Kim Amstadt DO Work Phone: [facility] Work Phone: 2003 haemophilus influenz ae type b vaccine, conjugate unspecified formulation Kim Amstadt DO Work Phone: [facility] Work Phone: 2003 hepatitis B vaccine, pediatric or pediatric/adolescent dosage Kim Amstadt DO Work Phone: [facility] Work Phone: 2003 pneumococcal conjuga te vaccine, 7 valent Kim Amstadt DO Work Phone: [facility] Work Phone: 2003 poliovirus vaccine, unspecified formulation Donte Singleton MD Work Phone: [facility] 2003 hepatitis B vaccine, pediatric or pediatric/adolescent dosage Kim Amstadt DO Work Phone: [facility] Work Phone: Payers Date Payer Category Payer Private Health Insurance [id number] 2024 Government (not [facility] or Medicaid) [id number] 2024 Unknown [id number] 2023 Self-pay 2019 Private Health Insurance 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 2019 Unknown [id number] 2019 Unknown [id number] Unknown [id number] Unknown [id number] Social History Date Type Detail Facility Start: 11-26-2019 End: 08-16-2022 Tobacco smoking status NHIS Never smoked tobacco [facility] Start: 11-26-2019 End: 08-16-2022 Tobacco use and exposure Smokeless tobacco non-user [facility] Start: 05-06-2022 End: 10-22-2023 Alcohol intake Lifetime non-drinker (finding) [facility] Start: 05-04-2022 End: 08-14-2022 History SDOH Alcohol Frequency 1 [facility] Start: 05-04-2022 History SDOH Alcohol Std Drinks 98 [facility] Start: 05-04-2022 History SDOH Social Connections Phone 5 [facility] Start: 05-04-2022 History SDOH Social Connections Get Together 3 [facility] Start: 05-04-2022 End: 08-14-2022 History SDOH Social Connections Membership 2 [facility] Start: 05-04-2022 History SDOH Social Connections Living 7 [facility] Start: 05-04-2022 History SDOH Physica l Activity MPS 6 [facility] Start: 2003 Sex Assigned At Not on file C [facility] Start: 04-26-2022 End: 09-04-2022 Exposure to SARS-CoV-2 (event) Not sure [facility] Start: 05-24-2022 End: 06-03-2022 Exposure to SARS-CoV-2 (event) Unable to assess [facility] Start: 06-07-2023 End: 12-30-2023 Tobacco smoking status NHIS Unknown if ever smoked [facility] Start: 2003 Sex Assigned At Female W [facility] Start: 02-24-2023 End: 06-09-2023 History of Social function [facility] Start: 02-24-2023 End: 06-09-2023 Social connection and isolation panel [facility] Do you belong to any clubs or organizations such as jehovah's witness groups, unions, fraternal or athletic groups, or school groups? Yes [facility] Are you now , , , , never or living with a partner? Living with partner [facility] How often to you hav e a drink containing alcohol? Never [facility] Start: 09-13-2012 How many standard drinks containing alcohol do you have on a typical day? Patient does not drink [facility] How hard is it for y ou to pay for the very basics like food, housing, medical care, and heating Somewhat hard [facility] Do you feel stress - tense, restless, nervous, or anxious, or unable to sleep at night because your mind is troubled all the time - these days [OSQ] To some extent [facility] (I/We) worried whenereida er (my/our) food would run out before (I/we) got money to buy more. Sometimes true [facility] The food that (I/we) bought just didn't last, and (I/we) didn't have money to get more. Never true [facility] In the past 12 month s, was there a time when you were not able to pay the mortgage or rent on time? No [facility] Start: 11-29-2021 Gender identity Identifies as female gender (finding) [facility] Start: 10-27-2024 End: 05-24-2025 Alcoholic beverage intake Ex-drinker (finding) [facility] Start: 10-26-2024 Education 13 [facility] Start: 09-14-2024 [facility] Start: 10-26-2024 Sexual orientation Heterosexual (naeem olivares) [facility] Are you now , , , , never or living with a partner? [facility] Do you feel stress - tense, restless, nervous, or anxious, or unable to sleep at night because your mind is troubled all the time - these days [OSQ] Not at all [facility] Start: 12-29-2024 Alcohol Comment rare alcohol u se, not while [facility] NEGATED: Highlighted row [facility] Goals Date Patient Goal Desired Activity /State Personal health goal Functional Status Date Assessment Result Facility 12-08-2024 Total score [AUDIT-C] -1 025 10:51 AM EST User, [email or web address] [facility] 12-08-2024 Within the last year , have you been humiliated or emotionally abused in other ways by your partner or ex-partner? No 12/08/2024 10:51 AM EST User, Mychart No [facility] 12-08-2024 Within the last year , have you been afraid of your partner or ex-partner? No 12/08/2024 10:51 AM EST User, Mychart No [facility] 12-08-2024 Within the last year , have you been raped or forced to have any kind of sexual activity by your partner or ex-partner? No 12/08/2024 10:51 AM EST User, Mychart No [facility] 12-08-2024 Within the last year , have you been kicked, hit, slapped, or otherwise physically hurt by your partner or ex-partner? No 12/08/2024 10:51 AM EST User, Mychart No [facility] 12-08-2024 Functional status Patient declin ed 12/08/2024 10:51 AM EST User, Mychart Patient declined [facility] 12-08-2024 How often do you hav e 6 or more drinks on 1 occasion? Never 12/08/2024 10:51 AM EST User, Mychart Never [facility] Mental Status Date Assessment Result Facility 06-07-2023 Cognitive function Level Of Cons ciousness Awake;Alert;Appropriate;Follow s Commands [facility] Work Phone: Clinical Notes 05-06-2022 to [...] discussed with the Patient or Patient's Authorized Clean Up Person. As applicable, any other physician, advance practice provider, medical student, or other health professional student that will be observing or involved in the sensitive examination for educational or training purposes was discussed with the Patient or Authorized Clean Up Person. The Patient or Authorized Clean Up Person has agreed to proceed with the sensitive examination. ASSESSMENT/PLAN: 1. Supervision of high risk in second trimester 2. 39 weeks gestation of PP visit Arlene Narayan APRN.CNM [facility] 06-03-2025 Miscellaneous Notes JOANNA-S: Howard Donald is [...] discussed with the Patient or Patient's Authorized Clean Up Person. As applicable, any other physician, advance practice provider, medical student, or other health professional student that will be observing or involved in the sensitive examination for educational or training purposes was discussed with the Patient or Authorized Clean Up Person. The Patient or Authorized Clean Up Person has agreed to proceed with the sensitive examination. ASSESSMENT/PLAN: 1. Supervision of high risk in second trimester 2. 39 weeks gestation of PP visit Arlene Narayan APRN.CNM documented in this encounter [facility] 06-03-2025 Instructions Ren Calzada LPN - 06/03/2025 3:10 PM EDT SEQUENTIAL SCREENINGS The [facility] offers sequential screenings for women who are [...] It will require an appointment with our digital field service technician. This is not an ultrasound performed [...] the above symptoms, contact our office at [phone] and ask to speak with a nurse. After hours, you can call doctors registry at [phone] OR call [facility] at [phone] and ask to have the doctor oncology account specialist paged. If you consider this an emergency, dial 9-2 or go to your nearest emergency department. NEED HELP? Are you dealing with a violent or abusive relationship? Are you a victim of rape or sexual assult? Call [facility] ([facility] 24 hour Crisis Hotline: 238.982.3897 or 104-738-9277. MANUAL Your Guide to a Healthy manual is now on-line. Visit [email or web address] ncyGuide to download your free copy documented in this encounter [facility] 06-01-2025 Progress note Formatting of t his [...] was discussed with the patient or authorized risk control representative. The patient or authorized risk control representative has agreed to proceed with the sensitive examination. @ 39.1 weeks Assessment & Plan Supervision of high risk in third trimester ([facility]) Orders: URINE OB DIP B/O Uterine size-date discrepancy, third trimester ([facility]) AGA Orders: URINE OB DIP B/O 39 weeks gestation of ([facility]) RTO weekly incase IOL gets bumped IOL scheduled for next week per patient request - requesting physician only for delivery. Pt understands will do best to accommodate this request. Kick counts and labor reviewed Orders: URINE OB DIP B/O Nicky Valladares MD [facility] 06-01-2025 Miscellaneous Notes DM-Pt doing well. Denies vaginal Bleeding, Leaking fluid, or regular Contractions. Pt reports good movement Physical Exam: Gen: female in no apparent distress Abd: soft, Gravid. Non tender to palpation. See flow sheet Participation of a fellow, resident, medical student, or advanced practice provider student in performing the sensitive examination was discussed with the patient or authorized risk control representative. The patient or authorized risk control representative has agreed to proceed with the sensitive examination. @ 39.1 weeks Assessment & Plan Supervision of high risk in third trimester ([facility]) Orders: URINE OB DIP B/O Uterine size-date [...] Nicky Valladares MD documented in this encounter [facility] 06-01-2025 Instructions Gracy Pike MA - 06/01/2025 10:38 AM EDT SEQUENTIAL SCREENINGS The [facility] offers sequential screenings for women who are [...] It will require an appointment with our digital field service technician. This is not an ultrasound performed [...] the above symptoms, contact our office at [phone] and ask to speak with a nurse. After hours, you can call doctors registry at [phone] OR call [facility] at [phone] and ask to have the doctor oncology account specialist paged. If you consider this an emergency, dial 06-13- or go to your nearest emergency department. NEED HELP? Are you dealing with a violent or abusive relationship? Are you a victim of rape or sexual assult? Call [facility] ([place]) 24 hour Crisis Hotline: 346.600.7463 or 056-024-8777. MANUAL Your Guide to a Healthy manual is now on-line. Visit [email or web address] ncyGuide to download your free copy documented in this encounter [facility] 05-25-2025 Note HNO ID: [id number] Author: SERINA RBOWN, ? Service: ? Author Type: Patient Communication Center Coordinator Type: Progress Notes Filed: 05/25/2025 09:26 Note Text: POPULATION HEALTH NAVIGATION OUTREACH Action/FYI Spoke to patient added presentation team member to OB provider field Reason for Outreach Medicaid OB/Peds Care Gaps due: N/A Patient Contacted: Spoke to patient/parent/or legal guardian Patient identified by name and : Yes Medicaid OB/Peds actions taken: /Kennel Manager Dog Track added Navigation Signature: Serina Brown Population Health Navigator May 25, 2025 9:25 AM [facility] 05-25-2025 History of Present illness Narrative POPULATION HEALTH NAVIGATION OUTREACH Action/FYI Spoke to patient added presentation team member to OB provider field Reason for Outreach Medicaid OB/Peds Care Gaps due: N/A Patient Contacted: Spoke to patient/parent/or legal guardian Patient identified by name and : Yes Medicaid OB/Peds actions taken: [place]/Kennel Manager Dog Track added Navigation Signature: Serina Brown Population Health Navigator May 25, 2025 9:25 AM documented in this encounter [facility] 05-25-2025 Note Patient Outreach (NE TNAV) HOWARD DONALD ([id number]) 03 [facility] Date Time Provider Department 05/25/25 SERINA BROWN NETNAV During your visit today, we recorded the following information about you: Serina Brown 05/25/2025 9:26 AM Signed POPULATION HEALTH NAVIGATION OUTREACH Action/FYI Spoke to patient added presentation team member to OB provider field Reason for Outreach Medicaid OB/Peds Care Gaps due: N/A Patient Contacted: Spoke to patient/parent/or legal guardian Patient identified by name and : Yes Medicaid OB/Peds actions taken: /Kennel Manager Dog Track added Navigation Signature: Serina Brown Population Health [...] Resolved TBI (traumatic brain injury) ([facility]) [S06.9XAA] 05/06/2022 History of depression [Z86.59] 05/06/2022 [...] Encounter Status:Closed by SERINA BROWN on 05/25/25 [facility] 05-24-2025 Progress note Formatting of t his note might be different from the original. KJ - S: Howard denies LOF, contractions or vaginal bleeding. She reports some intermittent mild headaches that seem like prior migraine headaches. O: 38w0d, see flow sheet SENSITIVE EXAM: The sensitive examination was discussed with the Patient or Patient's Authorized Clean Up Person. As applicable, any other physician, advance practice provider, medical student, or other health professional student that will be observing or involved in the sensitive examination for educational or training purposes was discussed with the Patient or Authorized Clean Up Person. The Patient or Authorized Clean Up Person has agreed to proceed with the sensitive examination. (Sensitive examination includes inspection and/or palpation of the breasts, pelvis, prostate and anorectal regions). A/P: Assessment & Plan 38 weeks gestation of (HCC) Orders: URINE OB DIP B/O Supervision of high risk in third trimester ([facility]) Orders: URINE OB DIP B/O Reviewed labor, FM & headache precautions. Tati Bowles MD [facility] 05-24-2025 Miscellaneous Notes KJ - S: Howard denies LOF, contractions or vaginal bleeding. She reports some intermittent mild headaches that seem like prior migraine headaches. O: 38w0d, see flow sheet SENSITIVE EXAM: The sensitive examination was discussed with the Patient or Patient's Authorized Clean Up Person. As applicable, any other physician, advance practice provider, medical student, or other health professional student that will be observing or involved in the sensitive examination for educational or training purposes was discussed with the Patient or Authorized Clean Up Person. The Patient or Authorized Clean Up Person has agreed to proceed with the sensitive examination. (Sensitive examination includes inspection and/or palpation of the breasts, pelvis, prostate and anorectal regions). A/P: Assessment & Plan 38 weeks gestation of (HCC) Orders: URINE OB DIP B/O Supervision of high risk in third trimester ([facility]) Orders: URINE OB DIP B/O Reviewed labor, FM & headache precautions. Tati Bowles MD documented in this encounter [facility] 05-24-2025 Instructions Linh Norman MA - 05/24/2025 11:13 AM EDT SEQUENTIAL SCREENINGS The [facility] offers sequential screenings for women who are [...] It will require an appointment with our digital field service technician. This is not an ultrasound performed [...] the above symptoms, contact our office at [phone] and ask to speak with a nurse. After hours, you can call doctors registry at [phone] OR call [facility] at [phone] and ask to have the doctor oncology account specialist paged. If you consider this an emergency, dial or go to your nearest emergency department. NEED HELP? Are you dealing with a violent or abusive relationship? Are you a victim of rape or sexual assult? Call [facility] ([place]) 24 hour Crisis Hotline: 718.255.6978 or 635-882-5493. MANUAL Your Guide to a Healthy manual is now on-line. Visit [email or web address] ncyGuide to download your free copy documented in this encounter [facility] 05-09-2025 Progress note Formatting of t his note might be different from the original. SW- Some irregular ctx's. No vb, lof. Good FM PE: Gen- Nad, well appearing Abd- Soft, gravit, NT, S=D See flowsheet A/p 35 wk gestation - Discussed PTL - RTO 1 wk Clare Frank DO [facility] 05-09-2025 Miscellaneous Notes SW- Some irregular ctx's. No vb, lof. Good FM PE: Gen- Nad, well appearing Abd- Soft, gravit, NT, S=D See flowsheet A/p 35 wk gestation - Discussed PTL - RTO 1 wk Clare Frank DO documented in this encounter [facility] 05-09-2025 Instructions Linh Norman MA - 05/09/2025 9:51 AM EDT SEQUENTIAL SCREENINGS The [facility] offers sequential screenings for women who are [...] It will require an appointment with our digital field service technician. This is not an ultrasound performed [...] the above symptoms, contact our office at [phone] and ask to speak with a nurse. After hours, you can call doctors registry at [phone] OR call [facility] at [phone] and ask to have the doctor oncology account specialist paged. If you consider this an emergency, dial 91-9 or go to your nearest emergency department. NEED HELP? Are you dealing with a violent or abusive relationship? Are you a victim of rape or sexual assult? Call [facility] ([place]) 24 hour Crisis Hotline: 523.407.3747 or 760-364-5560. MANUAL Your Guide to a Healthy manual is now on-line. Visit [email or web address] ncyGuide to download your free copy documented in this encounter [facility] 04-28-2025 Note Indication Evaluation of growth Discrepancy [...] 12 oz EFW by: Hadlock (HC-AC-FL) Extended Director Of Research And Development 4.7 mm Extremities / Bony Struc [place] [...] Plan 34 weeks gestation of ([facility]) US today shows EFW at 69% Orders: URINE OB DIP B/O Supervision of high risk in third trimester ([facility]) Orders: URINE OB DIP B/O Reviewed PTL & FM precautions Tati Bowles MD [facility] 04-28-2025 Miscellaneous Notes KJ - S: Howard denies LOF, contractions or vaginal bleeding. O: 34w2d, see flow sheet SENSITIVE EXAM: Sensitive exam not performed. A/P: Assessment & Plan 34 weeks gestation of ([facility]) US today shows EFW at 69% Orders: URINE OB DIP B/O Supervision of high risk in third trimester ([facility]) Orders: URINE OB DIP B/O Reviewed PTL & FM precautions Tati Bowles MD documented in this encounter [facility] 04-28-2025 Instructions Linh Norman MA - 04/28/2025 11:36 AM EDT SEQUENTIAL SCREENINGS The [facility] offers sequential screenings for women who are [...] It will require an appointment with our digital field service technician. This is not an ultrasound performed [...] the above symptoms, contact our office at [phone] and ask to speak with a nurse. After hours, you can call doctors registry at [phone] OR call [facility] at [phone] and ask to have the doctor oncology account specialist paged. If you consider this an emergency, dial 9-1-8 or go to your nearest emergency department. NEED HELP? Are you dealing with a violent or abusive relationship? Are you a victim of rape or sexual assult? Call [facility] ([place]) 24 hour Crisis Hotline: 924.930.2808 or 051-020-6358. MANUAL Your Guide to a Healthy manual is now on-line. Visit [email or web address] ncyGuide to download your free copy documented in this encounter [facility] 04-20-2025 Telephone encounter Note Next OB appt with [facility] scheduled for 04/28/25. Goldie Oquendo RN [facility] 04-20-2025 Miscellaneous Notes Next OB appt with [facility] scheduled for 04/28/25. Goldie Oquendo, RN NST reactive. Feeling good FM. Precautions reviewed. Alli Forrester APRN.WILVER Patient is [employer] employee and approached provider about her dog jumping on her abdomen pretty forcefully last night. Denies bleeding or cramping. Recommend NST and appointment. Can add on to my schedule. Plans to arrive in about 10 minutes. Alli Forrester APRN.CNP documented in this encounter [facility] 04-20-2025 Telephone encounter Note NST reactive. Feeling good FM. Precautions reviewed. Alli Forrester APRN.CNP [facility] 04-20-2025 Instructions Laura Solomon MA - 04/20/2025 12:05 PM EDT SEQUENTIAL SCREENINGS The [facility] offers sequential screenings for women who are [...] It will require an appointment with our digital field service technician. This is not an ultrasound performed [...] the above symptoms, contact our office at [phone] and ask to speak with a nurse. After hours, you can call doctors registry at [phone] OR call [facility] at [phone] and ask to have the doctor oncology account specialist paged. If you consider this an emergency, dial 06-13- or go to your nearest emergency department. NEED HELP? Are you dealing with a violent or abusive relationship? Are you a victim of rape or sexual assult? Call [facility] ([place]) 24 hour Crisis Hotline: 988.128.4153 or 776-053-5617. MANUAL Your Guide to a Healthy manual is now on-line. Visit [email or web address] ncyGuide to download your free copy documented in this encounter [facility] 04-20-2025 Note HNO ID: [id number] Author: ALLI FORRESTER APRN.CNP Service: ? Author Type: Nurse Practitioner Type: Procedures Filed: 04/20/2025 12:56 Note Text: NST SUMMARY PROVIDER ASSESSMENT AND INTERPRETATION Indications for NST: Trauma Baseline: 130 Variability: Moderate Accelerations: Present 15 X 15 Decelerations: None Interpretation: Reactive SIGNATURE: Alli Forrester APRN.CNP [facility] 04-20-2025 Procedure note NST SUMMARY PROVIDER ASSESSMENT AND INTERPRETATION Indications for NST: Trauma Baseline: 130 Variability: Moderate Accelerations: Present 15 X 15 Decelerations: None Interpretation: Reactive SIGNATURE: Alli Forrester APRN.CNP [facility] 04-20-2025 Progress note Formatting of t his [...] or sooner as needed. Alli Forrester APRN.CNP [facility] 04-20-2025 Miscellaneous Notes EH - S: Howard [...] high risk in third trimester ([facility]) - ICD9: V23.9, ICD10: O09.93 (primary diagnosis) - Continue PNV 2. 33 weeks gestation of ([facility]) - ICD9: V22.2, ICD10: Z3A.33 3. Abdominal trauma, initial encounter - ICD9: 959.12, ICD10: S39.91XA - Feeling good movement - NST reactive - Reviewed precautions PTL precautions and kick counts reviewed. RTO as scheduled or sooner as needed. Alli Forrester APRN.CNP documented in this encounter [facility] 04-20-2025 Procedure note NST SUMMARY PROVIDER ASSESSMENT AND INTERPRETATION Indications for NST: Trauma Baseline: 130 Variability: Moderate Accelerations: Present 15 X 15 Decelerations: None Interpretation: Reactive SIGNATURE: Alli Forrester APRN.CNP documented in this encounter [facility] 04-20-2025 Telephone encounter Note Patient is [employer] employee and approached provider about her dog jumping on her abdomen pretty forcefully last night. Denies bleeding or cramping. Recommend NST and appointment. Can add on to my schedule. Plans to arrive in about 10 minutes. Alli Forrester APRN.WILVER T [facility] 04-13-2025 Progress note Formatting of t his [...] RTO- 2 week. Arlene Narayan APRN.CNM T [facility] 04-13-2025 Miscellaneous Notes JOANNA-S: Howard Donald is [...] Arlene Narayan APRN.CNM documented in this encounter [facility] 04-13-2025 Instructions Arlene Narayan APRN.CNM - 04/13/2025 [...] an easy pie crust in the food safety scientist. Add soaked dates to homemade nut butter for a sweet treat. Add dates to pepe homemade salad dressing. Add dates during easily with these yummy (paleo friendly) bars made from dates. What Is Red Raspberry [place] Tea? Red raspberry leaf tea comes from [...] , and too. How Much Red Raspberry [place] Tea to Drink? 34 wk With your doctor or circuits engineer s approval, start with 1 cup of [...] because of uterine cramping. Is Red Raspberry [place] Tea the Same as Raspberry [place] Tea? How About Plain Old Raspberry Tea? Sometimes. You really need to look at the ingredients to be sure. Note that there is no difference between red raspberry leaf and raspberry leaf. Superplayer or [employer] Raspberry [place] Tea are two good brands. The red [...] outlined in this article. The [employer] [email or web address] I named this 'circuit' after my friend [...] sideways, 2 at a time, (have a middle school french teacher downstairs of you!), take a walk outside [...] the pelvis. Daniela Amos: Circuit Creator - www.[email or web address].[email or web address] Norma Kirkpatrick CD, BDT (ROEL), LCCE, FACCE: Supporting Content - www.[employer]chant [employer] Alli Merlos: Photography - www.[email or web address] Technologies.eFlix Trinidad Strickland CD/CDT (IVANIA): Print and Grain Miller Helper - www.Easy Food.[employer] Circuit Masterminds The Miles Circuit www.The Global Instructor Network.eFlix What is my perineum? Your perineum is [...] the above symptoms, contact our office at [phone] and ask to speak with a nurse. After hours, you can call doctors registry at [phone] OR call [facility] at [phone] and ask to have the doctor oncology account specialist paged. If you consider this an emergency, dial 6-7-9 or go to your nearest emergency department. NEED HELP? Are you dealing with a violent or abusive relationship? Are you a victim of rape or sexual assult? Call [facility] ([place]) 24 hour Crisis Hotline: 489.557.4693 or 783-913-7051. MANUAL Your Guide to a Healthy manual is now on-line. Visit [email or web address]/[email or web address] ncyGuide to download your free copy documented in this encounter [facility] 03-28-2025 Progress note Formatting of t his [...] - RTO- 2 week. Arlene Narayan APRN.CNM [facility] 03-28-2025 Miscellaneous Notes JOANNA-S: Howard Donald is [...] Arlene Narayan APRN.CNM documented in this encounter [facility] 03-28-2025 Instructions Dandre Calle MA - 03/28/2025 11:16 AM EDT SEQUENTIAL SCREENINGS The [facility] offers sequential screenings for women who are [...] It will require an appointment with our digital field service technician. This is not an ultrasound performed [...] the above symptoms, contact our office at [phone] and ask to speak with a nurse. After hours, you can call doctors registry at [phone] OR call [facility] at [phone] and ask to have the doctor oncology account specialist paged. If you consider this an emergency, dial 9--1 or go to your nearest emergency department. NEED HELP? Are you dealing with a violent or abusive relationship? Are you a victim of rape or sexual assult? Call [facility] ([place]) 24 hour Crisis Hotline: 179.109.3496 or 424-553-3032. MANUAL Your Guide to a Healthy manual is now on-line. Visit [email or web address] ncyGuide to download your free copy documented in this encounter [facility] 03-16-2025 Miscellaneous Notes JOANNA-S: Howard Donald is [...] Arlene Narayan APRN.CNM documented in this encounter [facility] 03-16-2025 Progress note Formatting of t his [...] - RTO- 2 week. Arlene Narayan APRN.CNM [facility] 02-23-2025 Note HNO ID: [id number] Author: KAMRAN GUTHRIE APRN.CNP Service: ? Author [...] for Supervision of Normal in Second Trimester ([facility]) - 02/16/2025 Exercise-Induced Asthma ([facility]) - 12/29/2024 Asthma Affecting in First Trimester ([facility]) - 10/27/2024 Comment: October 27, 2024 Uses albuterol PRN. No Hemabate with delivery. Alli Forrester, TAMMY.[facility] Supervision of High Risk in Second Trimester ([facility]) - 10/27/2024 Comment: Care Checklist Vaccines: [...] (28-30 weeks): [] Consent [] Contraception [] Kennel Manager Dog Track [] TeamBirth handout Third trimester (36-40 weeks): [...] throughout so far. Has seen counseling through jehovah's witness in the past. No concerns with mood at this time. Mental health resources provided. Alli Forrester APRN.WILVER Nausea and Vomiting in ([facility]) - 10/27/2024 Comment: 10/27/24 Vitamin B6 doses reviewed. To notify if prescription is needed. Alli Forrester APRN.CNP Constipation During in First Trimester ([facility]) - 10/27/2024 Comment: October 27, 2024 Discussed Colace and increased hydration. Alli Forrester APRN.WILVER Vasovagal Syncope - 09/10/2023 Tbi (Traumatic Brain Injury) ([facility]) - 05/06/2022 History of Depression - [...] Vitals and nu (more content not included)... [facility] 02-23-2025 History of Present illness Narrative SUBJECTIVE [...] for Supervision of Normal in Second Trimester ([facility]) - 02/16/2025 Exercise-Induced Asthma ([facility]) - 12/29/2024 Asthma Affecting in First Trimester ([facility]) - 10/27/2024 Comment: October 27, 2024 Uses albuterol PRN. No Hemabate with delivery. Alli Forrester APRN.WILVER Supervision of High Risk in Second Trimester ([facility]) - 10/27/2024 Comment: Care Checklist Vaccines: [...] (28-30 weeks): [] Consent [] Contraception [] Kennel Manager Dog Track [] TeamBirth handout Third trimester (36-40 weeks): [...] throughout so far. Has seen counseling through jehovah's witness in the past. No concerns with mood at this time. Mental health resources provided. Alli Forrester APRN.CNP Nausea and Vomiting in ([facility]) - 10/27/2024 Comment: 10/27/24 Vitamin B6 doses reviewed. To notify if prescription is needed. Alli Forrester APRN.WILVER Constipation During in First Trimester ([facility]) - 10/27/2024 Comment: October 27, 2024 Discussed Colace and increased hydration. Alli Forrester APRN.WILVER Vasovagal Syncope - 09/10/2023 Tbi (Traumatic Brain Injury) ([facility]) - 05/06/2022 History of Depression - 05/06/2022 Migraine With Aura, Not Intractable, Without Status Migrainosus - 05/06/2022 Comment: October 27, 2024 Has been prescribed Rizatriptan in the past. Recommend avoiding during . Discussed Magnesium 400 mg per day for headache prevention and to notify if migraines are becoming an issue. Alli Forrester APRN.ENROUTE CONTROLLER Bmi 29.0-29.9,Adult - 05/06/2022 Social History Tobacco [...] for Keep next scheduled appointment.. Kamran Guthrie APRN-ENROUTE CONTROLLER documented in this encounter [facility] 02-20-2025 Note HNO ID: [id number] Author: CHRIS ALFORD PA-C Service: ? Author Type: Physician Mixing Pan Tender Type: Progress Notes Filed: 02/20/2025 09:50 Note Text: This note was created using [employer]. Subjective Howard Donald is a 20 year [...] procedures: low Management options: ryley Alford PA-C [facility] 02-20-2025 History of Present illness Narrative This note was created using [employer]. Subjective Howard Donald is a 20 year [...] Chris Alford PA-C documented in this encounter [facility] 02-16-2025 Progress note Formatting of t his note might be different from the original. DM-Pt doing well. Denies vaginal Bleeding, Leaking fluid, or regular Contractions. Pt reports good movement Physical Exam: Gen: female in no apparent distress Abd: soft, Gravid. Non tender to palpation. See flow sheet @ 24.1 weeks Assessment & Plan Supervision of high risk in second trimester ([facility]) Screening for diabetes mellitus Orders: GESTATIONAL GLUCOSE SCREEN, 1-HOUR, 50 GRAM, NON-FASTING; Future Encounter for supervision of normal first in third trimester ([facility]) Orders: SYPHILIS TREPONEMAL W/REFLEX; Future ANEMIA REFLEX PANEL; Future 24 weeks gestation of ([facility]) RTO 4 weeks Nicky Valladares MD [facility] 02-16-2025 Miscellaneous Notes DM-Pt doing well. Denies vaginal Bleeding, Leaking fluid, or regular Contractions. Pt reports good movement Physical Exam: Gen: female in no apparent distress Abd: soft, Gravid. Non tender to palpation. See flow sheet @ 24.1 weeks Assessment & Plan Supervision of high risk in second trimester ([facility]) Screening for diabetes mellitus Orders: GESTATIONAL GLUCOSE SCREEN, 1-HOUR, 50 GRAM, NON-FASTING; Future Encounter for supervision of normal first in third trimester ([facility]) Orders: SYPHILIS TREPONEMAL W/REFLEX; Future ANEMIA REFLEX PANEL; Future 24 weeks gestation of ([facility]) RTO 4 weeks Nicky Valladares MD documented in this encounter [facility] 02-16-2025 Instructions Gracy Pike MA - 02/16/2025 8:41 AM EDT SEQUENTIAL SCREENINGS The [facility] offers sequential screenings for women who are [...] It will require an appointment with our digital field service technician. This is not an ultrasound performed [...] the above symptoms, contact our office at [phone] and ask to speak with a nurse. After hours, you can call [facility] at [phone] OR call [facility] at [phone] and ask to have the doctor oncology account specialist paged. If you consider this an emergency, dial 9-1-1 or go to your nearest emergency department. NEED HELP? Are you dealing with a violent or abusive relationship? Are you a victim of rape or sexual assult? Call [facility] ([place]) 24 hour Crisis Hotline: 907.930.3715 or 163-804-7015. MANUAL Your Guide to a Healthy manual is now on-line. Visit [email or web address] ncyGuide to download your free copy documented in this encounter [facility] 01-21-2025 Progress note Formatting of t his [...] apparent distress Anatomy completed today Traveling to [place] next week. Reviewed travel precautions Itching seems to be improving ASSESSMENT/PLAN: 1. 20 weeks gestation of ([facility]) - ICD9: V22.2, ICD10: Z3A.20 (primary diagnosis) 2. Supervision of high risk in second trimester ([facility]) - ICD9: V23.9, ICD10: O09.92 3. Asthma affecting in first trimester ([facility]) - ICD9: 648.93, 493.90, ICD10: O99.511, J45.909 Albuterol prn Mandy Sam MD [facility] 01-21-2025 Miscellaneous Notes S: Howard Donald is a 19 year old female who presents at 06/07/2025, by Last Menstrual Period for a routine visit. Denies headache, visual changes, chest pain, shortness of breath, vaginal bleeding, leakage of fluid, or dysuria. Feeling well, no complaints. O: See flow sheet Gen: No apparent distress Anatomy completed today Traveling to [place] next week. Reviewed travel precautions Itching seems to be improving ASSESSMENT/PLAN: 1. 20 weeks gestation of ([facility]) - ICD9: V22.2, ICD10: Z3A.20 (primary diagnosis) 2. Supervision of high risk in second trimester ([facility]) - ICD9: V23.9, ICD10: O09.92 3. Asthma affecting in first trimester ([facility]) - ICD9: 648.93, 493.90, ICD10: O99.511, J45.909 Albuterol prn Mandy Sam MD documented in this encounter [facility] 01-21-2025 Instructions Laura Solomon MA - 01/21/2025 9:35 AM EDT SEQUENTIAL SCREENINGS The [facility] offers sequential screenings for women who are [...] It will require an appointment with our digital field service technician. This is not an ultrasound performed [...] the above symptoms, contact our office at [phone] and ask to speak with a nurse. After hours, you can call doctors registry at [phone] OR call [facility] at [phone] and ask to have the doctor oncology account specialist paged. If you consider this an emergency, dial 9-1-1 or go to your nearest emergency department. NEED HELP? Are you dealing with a violent or abusive relationship? Are you a victim of rape or sexual assult? Call [facility] ([place]) 24 hour Crisis Hotline: 661.671.2331 or 796-014-5436. MANUAL Your Guide to a Healthy manual is now on-line. Visit [email or web address] ncyGuide to download your free copy documented in this encounter [facility] 12-30-2024 Telephone encounter Note Patient updated and voiced understanding. EHP form faxed and copy for patients chart. Original mailed back to patient. Annamaria Gill LPN [facility] 12-30-2024 Miscellaneous Notes Patient updated and voiced understanding. EHP form faxed and copy for patients chart. Original mailed back to patient. Annamaria Gill LPN ----- Message from Donte Singleton MD sent at 12/30/2024 7:05 AM EDT ----- Patient's labs are unremarkable. Recommend healthy diet and exercise as tolerated. Form completed for physical and placed in outbox. documented in this encounter [facility] 12-30-2024 Telephone encounter Note ----- Message from Donte Singleton MD sent at 12/30/2024 7:05 AM EDT ----- Patient's labs are unremarkable. Recommend healthy diet and exercise as tolerated. Form completed for physical and placed in outbox. [facility] 12-29-2024 Note HNO ID: [id number] Author: DONTE SINGLETON MD Service: ? Author [...] Migraines TBI (traumatic brain injury) ([facility]) 2019 fall down stairs Vasovagal syncope Previous [...] No history of dysuria, frequency or incontinence ORTHOTICS ASSISTANT: Negative for abnormal vaginal bleeding, abnormal vaginal [...] gums normal, oropharynx (more content not included)... [facility] 12-29-2024 History of Present illness Narrative Chief [...] Migraines TBI (traumatic brain injury) ([facility]) 2019 fall down stairs Vasovagal syncope Previous [...] No history of dysuria, frequency or incontinence ORTHOTICS ASSISTANT: Negative for abnormal vaginal bleeding, abnormal vaginal [...] Donte Singleton MD documented in this encounter [facility] 12-27-2024 Note HNO ID: [id number] Author: CLARE FRANK MD Service: ? Author Type: Physician Type: Progress Notes Filed: 12/27/2024 09:29 Note Text: 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 Howard Donald is a [...] Living0 SAB0 IAB0 Ectopic0 Multiple0 Live Births0 Machine Biller History LMP: 08/31/2024, Age at Menarche: 11 Age at First : 19 Age at Menopause: Machine Biller History Comments: Sexual Activity: Yes; Male; Not asked Contraception: No contraception data on record PAST MEDICAL HISTORY Diagnosis Date Depression GERD (gastroesophageal reflux disease) 09/10/2023 Migraines TBI (traumatic brain injury) ([facility]) 2019 PAST SURGICAL HISTORY Procedure Laterality Date [...] discussed with the Patient or Patient's Authorized Clean Up Person. As applicable, any other physician, advance practice provider, medical student, or other health professional student that will be observing or involved in the sensitive examination for educational or training purposes was discussed with the Patient or Authorized Clean Up Person. The Patient or Authorized Clean Up Person has agreed to proceed with the sensitive examination. (Sensitive examination includes inspection and/or palpation of the breasts, pelvis, prostate and anorectal regions). EXAM: BP 98/60 Wt 182 lb 12.8 oz (82.9kg) LMP 08/31/2024 GENERAL: pleasant, female in no apparent distress HEENT: Normocephalic and atraumatic CHEST: Normal inspiratory effort PELVIC: external genitalia normal, normal Bartholin's glands, urethra, John Sevier's glands, no vulvar lesions, no cervical lesions, [...] Medical Decision Making Level: 2 - Straightforward [facility] 12-27-2024 History of Present illness Narrative 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 Howard Donald is a [...] Living0 SAB0 IAB0 Ectopic0 Multiple0 Live Births0 Machine Biller History LMP: 08/31/2024, Age at Menarche: 11 Age at First : 19 Age at Menopause: Machine Biller History Comments: Sexual Activity: Yes; Male; Not asked Contraception: No contraception data on record PAST MEDICAL HISTORY Diagnosis Date Depression GERD (gastroesophageal reflux disease) 09/10/2023 Migraines TBI (traumatic brain injury) ([facility]) 2019 PAST SURGICAL HISTORY Procedure Laterality Date [...] discussed with the Patient or Patient's Authorized Clean Up Person. As applicable, any other physician, advance practice provider, medical student, or other health professional student that will be observing or involved in the sensitive examination for educational or training purposes was discussed with the Patient or Authorized Clean Up Person. The Patient or Authorized Clean Up Person has agreed to proceed with the sensitive examination. (Sensitive examination includes inspection and/or palpation of the breasts, pelvis, prostate and anorectal regions). EXAM: BP 98/60 Wt 182 lb 12.8 oz (82.9kg) LMP 08/31/2024 GENERAL: pleasant, female in no apparent distress HEENT: Normocephalic and atraumatic CHEST: Normal inspiratory effort PELVIC: external genitalia normal, normal Bartholin's glands, urethra, John Sevier's glands, no vulvar lesions, no cervical lesions, [...] 2 - Straightforward documented in this encounter [facility] 12-23-2024 Progress note Formatting of t his [...] of - ICD9: V22.2, ICD10: Z3A.16 - Mycbnenp61 negative - Anatomy ultrasound next visit PTL precautions reviewed. RTO in 4 weeks or sooner as needed. Alli Forrester APRN.ENROUTE CONTROLLER [facility] 12-23-2024 Miscellaneous Notes EH - S: Howard [...] of - ICD9: V22.2, ICD10: Z3A.16 - Jzuygbny63 negative - Anatomy ultrasound next visit PTL precautions reviewed. RTO in 4 weeks or sooner as needed. Alli Forrester APRN.WILVER documented in this encounter [facility] 12-23-2024 Instructions Sarah Salter MA - 12/23/2024 3:33 PM EDT SEQUENTIAL SCREENINGS The [facility] offers sequential screenings for women who are [...] It will require an appointment with our digital field service technician. This is not an ultrasound performed [...] the above symptoms, contact our office at [phone] and ask to speak with a nurse. After hours, you can call Predect registry at [phone] OR call [facility] at [phone] and ask to have the doctor oncology account specialist paged. If you consider this an emergency, dial 9-1-3 or go to your nearest emergency department. NEED HELP? Are you dealing with a violent or abusive relationship? Are you a victim of rape or sexual assult? Call [facility] ([place]) 24 hour Crisis Hotline: 436.462.1127 or 557-536-0495. MANUAL Your Guide to a Healthy manual is now on-line. Visit [facility].org/HealthyPregna ncyGlaurende to download your free copy documented in this encounter [facility] 12-15-2024 Note HNO ID: [id number] Author: DONTE SINGLETON MD Service: ? Author Type: Physician Type: Progress Notes Filed: 12/15/2024 08:51 Note Text: Chief Complaint Patient presents with: ER F/U: Asthma HPI Howard Donald is a 19 year old female who presents here today for new limited ER Follow Up.. Patient evaluated at [facility] ED on 12/02 for asthma exacerbation, postnasal [...] Migraines TBI (traumatic brain injury) ([facility]) 2019 Previous Surgical History PAST SURGICAL HISTORY [...] and if she (more content not included)... [facility] 12-15-2024 History of Present illness Narrative Chief Complaint Patient presents with: ER F/U: Asthma HPI Howard Donald is a 19 year old female who presents here today for new limited ER Follow Up.. Patient evaluated at [facility] ED on 12/02 for asthma exacerbation, postnasal [...] Migraines TBI (traumatic brain injury) ([facility]) 2019 Previous Surgical History PAST SURGICAL HISTORY [...] Donte Singleton MD documented in this encounter [facility] 12-02-2024 Telephone encounter Note 13w2d Patient called with c/o SOB, chest pain and back pain. Hx of asthma. Called to inquire if she should go to ER or Express Care. Patient has used her rescue inhaler x3 without relief and a hot shower. Advised to go to ER for evaluation. Patient voiced agreement. FYI - only. Mandy Pearl, RN [facility] 12-02-2024 Miscellaneous Notes 13w2d Patient called with c/o SOB, chest pain and back pain. Hx of asthma. Called to inquire if she should go to ER or Express Care. Patient has used her rescue inhaler x3 without relief and a hot shower. Advised to go to ER for evaluation. Patient voiced agreement. FYI - only. Mandy Pearl, RN documented in this encounter [facility] 11-26-2024 Progress note Formatting of t his [...] ICD9: V23.9, ICD10: O09.91 Mandy Sam MD [facility] 11-26-2024 Miscellaneous Notes S: Howard Donald is [...] Mandy Sam MD documented in this encounter [facility] 11-26-2024 Instructions Linh Norman MA - 11/26/2024 9:27 AM EST SEQUENTIAL SCREENINGS The [facility] offers sequential screenings for women who are [...] It will require an appointment with our digital field service technician. This is not an ultrasound performed [...] the above symptoms, contact our office at [phone] and ask to speak with a nurse. After hours, you can call doctors registry at [phone] OR call [facility] at [phone] and ask to have the doctor oncology account specialist paged. If you consider this an emergency, dial or go to your nearest emergency department. NEED HELP? Are you dealing with a violent or abusive relationship? Are you a victim of rape or sexual assult? Call [facility] ([place]) 24 hour Crisis Hotline: 376.734.5214 or 193-166-8348. MANUAL Your Guide to a Healthy manual is now on-line. Visit [facility].org/HealthyPregna ncyGuide to download your free copy documented in this encounter [facility] 11-10-2024 Telephone encounter Note Patient notified. Inessa Sams RN [facility] 11-10-2024 Miscellaneous Notes Patient notified. Inessa Sams RN Agree with advice 10w1d Patient calling because her dog over 50lb jumped directly on abdomen this morning and she is now having intermittent mild cramping. No bleeding or other concerns. Advised to continue to monitor and call with any bleeding or worsening pain. Please advise. Inessa Sams RN documented in this encounter [facility] 11-10-2024 Telephone encounter Note Agree with advice [facility] Work Phone: 11-10-2024 Telephone encounter Note 10w1d Patient calling because her dog over 50lb jumped directly on abdomen this morning and she is now having intermittent mild cramping. No bleeding or other concerns. Advised to continue to monitor and call with any bleeding or worsening pain. Please advise. Inessa Sams RN [facility] 11-04-2024 Telephone encounter Note Patient currently 9w2d, last seen in office on 10/27 for New OB. Next appointment on 11/26. Destiney Gilman RN [facility] 11-04-2024 Miscellaneous Notes Patient currently 9w2d, last seen in office on 10/27 for New OB. Next appointment on 11/26. Destiney Gilman RN documented in this encounter [facility] 10-26-2024 Note HNO ID: [id number] Author: ALLI FORRESTER APRN.ENROUTE CONTROLLER Service: ? Author Type: Nurse Practitioner Type: Progress Notes Filed: 10/27/2024 10:03 Note Text: 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 INITIAL OB ASSESSMENT HPI: [...] Migraines TBI (traumatic brain injury) ([facility]) 2019 PAST SURGICAL HISTORY Procedure Laterality Date [...] Impaired Vision, Ringi (more content not included)... [facility] 10-26-2024 History of Present illness Narrative 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 INITIAL OB ASSESSMENT HPI: [...] Migraines TBI (traumatic brain injury) ([facility]) 2019 PAST SURGICAL HISTORY Procedure Laterality Date [...] discussed with the Patient or Patient's Authorized Clean Up Person. As applicable, any other physician, advance practice provider, medical student, or other health professional student that will be observing or involved in the sensitive examination for educational or training purposes was discussed with the Patient or Authorized Clean Up Person. The Patient or Authorized Clean Up Person has agreed to proceed with the sensitive [...] Your guide to a health and the Graduate Student Instructor. Discussed hemoglobin electrophoresis. Patient: Accepts Reviewed midwifery and cigarette machines mechanic services that are available. 2) Screening: Hemoglobin [...] (28-30 weeks): [] Consent [] Contraception [] Kennel Manager Dog Track [] TeamBirth handout Third trimester (36-40 weeks): [] GBS [] Presentation - [] Scheduled [] yes - Hibiclens, pre-op instructions, CBC, T&S ordered [] no [] H&P [] Preferences worksheet [] Scanned in EMR Asthma Affecting in First Trimester - 10/27/2024 Comment: October 27, 2024 Uses albuterol PRN. No Hemabate with delivery. Alli Forrester APRN.ENROUTE CONTROLLER History of Eating Disorder - 10/27/2024 History of Depression - 05/06/2022 Comment: October 27, 2024 Diagnosed at age 18-19 years old. Has never been on medication.Has struggled with restriction in the past. Has been eating well throughout so far. Has seen counseling through jehovah's witness in the past. No concerns with mood [...] Alli Forrester APRN.CNP documented in this encounter [facility] 10-26-2024 Instructions Alli Forrester APRN.CNP - 10/26/2024 10:28 AM EST Images from the original note were not included. Please select the following link to access the [facility] Your Guide to a Healthy . [email or web address]/healthypregnancyguide Please select the following link to access the [facility] Your Guide to a Healthy . [email or web address].Ccf.org/healthypregnancyguide MORNING SICKNESS IN by Nicki De La Paz M.D. for HouseFix As you may already know, morning sickness can often be more appropriately called evening sickness or ghdya-jezvyq-lo-the-day sickness. While there are the gil few, [...] medication, Doxylamine, is currently marketed as an rmar-tvg-ttjblzu sleeping pill. Ask your practitioner if creating a vitamin B6/Doxylamine combination with vivu-lgw-xycomwr medications would be safe for you. Prescription [...] as Phenergan, Compazine, Reglan Psychotherapy Services at [facility] Call Behavioral Health Access Line at [phone] to schedule Individual psychotherapy In-person or virtual Wait time for first evaluation may be 12 or more weeks. Wait list spots may be available. Due to the high volume of patients this option is recommended if you are looking for short term acute symptom coping strategies. 8-517-6-OKGB3PMZJ - [place] Maternal Mental Health Hotline If you are in suicidal crisis, please call or text 9-416-846-TALK ( ) or visit the National Suicide Prevention Lifeline website. mchb.[facility].gov If you are in crisis, call 511 or go to your nearest Emergency Department Here are some links for wonderful Providers here in the community and surrounding areas. Do not hesitate to contact their offices, many are offering virtual visits during this time. Psychotherapy Services outside of [facility] Support International Online Provider Directory https://Travelogy.eFlix/ - can assist in finding providers in your area that might be more extensive then the list below. [facility] [place], [place] [address] [place] [address] [address] [facility] [address] [place] [address] [facility] [address] [place], [place] [id number] Jd Thayer MD [address] [place] [address] [facility] [address] [facility], [address] [place] [address] [facility] [address] [place] [address] [facility] Services Guillen / Vinicius [phone]/ [phone] Serina Lynne [address] [facility] [address] [facility] [phone] Aves of Counseling and Mediation Radha / Edin [phone] Behavioral health services of [facility] [address] [place] [address]/ pep and [place] [phone] AICHA Russell, MADELYN Bump and Beyond Family Therapy Workshops, telehealth and at home visits. [phone] [facility] counseling energy 20 locations [place], [place], [place], [place], [place], [place], [place], [facility], [place], [place], [place], [place], [place], [place], [facility], [place], [place] ,[facility], [place], [place],[facility], [facility] [place], [place], [facility], [facility], Robin www.formerly [facility] [phone] Psychotherapy resources outside of [facility] are listed below [facility] BioAegis Therapeutics Psychotherapy Web: https://www.Intelligize/ Support International Online Provider Directory https://Latina Researchers Network/ [facility] https://Tenders.es/ Partners for Behavioral Health and Wellness Web: https://Peela/ [employer] for Effective Living Web: https://Southwest Nanotechnologies.eFlix/ LifeStance Web: https://Conergy.eFlix/location/s nguyen/[place]/ [facility] Web: https://www.LOAGnew mexico behavioral health institute at [facility].or / [facility] Web: https://Sparkbuy.org/ Recovery Resources Mental health and substance abuse help Web: https://www.LSU, [place].org & RESOURCES Support International Direct peer support and connection to professional resources Non-Emergency Helpline Phone: / Text: [phone] Web: https://www..net/ Online Provider Directory: https://Latina Researchers Network/ Online Support Meetings: https://www..net/get-he lp/aaw-ntyqpm-whpjwgg-meetings/ PANCHO Baby and Motion Picture Photographer Services Web: https://www.Popps Apps/ Novita Therapeutics Expert information on medication use during and Text: [phone] Web: https://Creative Allies/ NATIONAL REGISTRY FOR PSYCHIATRIC MEDICATIONS Currently studying the safety of antidepressants, ADHD medications and atypical antipsychotics taken during TO PARTICIPATE CALL TOLL-FREE: Web: https://womenentalhealth.org/re search/pregnancyregistry/ Support Groups: [facility]- Follow on facebook Baby Bistro support group led by [facility] department Resilient Mamas - Support Group [facility].org The POEM support group [phone] Www.poemonline.org Follow on facebook - POALIE rodriguez chapter Online support meetings PSI https://www..net/get-he lp/plj-uxsyyy-lxbddgq-meetings/ [facility] mommy and me virtual support group 11:30-1pm Support for mothers and new babies and toddlers Marquand childbirth education: Childbirth @cc.org or call [phone] CRISIS: CRISIS HOTLINE [phone], 911 or go to the nearest . [facility] [phone] / [facility] [phone] https://www.[facility].org Crisis text line text the word HOME to 024580 [facility] [address] [place] [address] [facility] [address] www.WebVetserafinKangaDo.eFlix Suzie Taylor clinical counseling [address] [address] www.Reveal Technologyhbritton.eFlix [phone] Holding space psychotherapy Maye Bundy PROPERTY CLAIM REP TAR POT MAN-S [address] [facility] www.CrowdProcess [phone]/ Barry [phone] They all offer virtual. All work with trauma Support groups Online support meetings PSI https://www..net/get-he lp/mmq-zksacb-xuqfzti-meetings/ Here are the support groups they offer: Support of parents of 1 to 4 years old children POEM ( Outreach and Encouragement for Moms) offers free support for mothers experiencing depression, anxiety, and other mood and anxiety disorders. Masks are recommended but not required. No pre-registration required. Babies in arms welcome. meetings now take place on the and Friday of each month Location: [facility] [address] [place] [address] Room 122 (library room) 7-8:00 p.m. When you enter the jehovah's witness parking lot off of [address] the entrance door closest to our meeting room is on the front of the building toward the right. For those who are more comfortable with a virtual platform, POEM offers online support group options several days of the week. To register for an online group or to find out more about POEM, website at: https://aoh[place].org/get-help/[facility]ondack regional hospitalgrun-nicvxo-tjqtch/poem-services/ offer a confidential helpline: private Facebook group is called CARMINA Gallo Here are the groups they offer: Traumatic childbirth resources: Http://pattch.org/ https://www.sylviaTideway.eFlix/ Name Location (s) Phone # (s) Services Website [facility] [address] [facility] [phone]; [address] [phone] In-Person GROUPS INDIVIDUAL THERAPY MATERNAL- MENTAL HEALTH MEDICATION MANAGEMENT PLAY AND ART THERAPY TELETHERAPY https://www.Intelligize/s ervices/ [facility] Kimberly RODRIGUEZ? [address] [place], [place] [address] ? [address], [address] [place], [place] [address] ? MARTIN [address] [place], [place] [address]? Grief Support Groups Individual Grief Counseling Spiritual Care Memorial Events https://[place].[facility].org/grief-services [facility] [address] [place], [place] [address]; ; Email: [email or web address] Women's Mental Health; Couples Counseling; Trauma (EMDR); Stress Management; Mood and Anxiety Related Disorders- and much more https://www.Ventrus Biosciences/ LifeStance Numerous as they have contract providers: access website to find specific providers near you Counseling including CBT and EMDR as well as many more modalities; Medication Management; Telehealth and In-Person https://Colingo/ ZAOZAO [facility] [address] [place], [place] [address]; [phone] Personal, Family and Group Therapy; Psychological Testing and Diagnosis; Medication Management; Life and Career Coaching; Psychoanalysis; Literacy Testing; Yoga and Meditation https://Peela/ ERN [facility] [address] [facility] [address] [address] [address] ; [address] [place] [address], [address] [place] [address]; Office # for both sites: Individual and Couples Counseling https://www.Enstratius.eFlix/ paymentinsurance.html OCD & Anxiety [facility] [address] [facility], [address], [place] [address]; Specialize in Cognitive-Behavioral Therapy (CBT) for the treatment of anxiety disorders across the lifespan. TELEHEALTH ONLY. https://ocdandanxietycenteroGraffitiTechv LAVEGO/faqs [facility] [address] [facility] [address] [place], [address] [place] [address] [facility] [place] [address] [place] [address] [facility] [place], [address] [place] [address] [place], [address], [id number] [place] [address] [place], [address] [place] [address] [place], [place], [id number] Transportation Services To minimize patient barriers, [facility] provides transportation services to patients [...] assistance Substance abuse treatment Medication assisted treatment https://www.[facility].or g/mental-health/ [facility] OFFICE AT [facility] [address] [place] [address] [facility] OFF[facility] [address] [place] [address] [facility] OFFICE [address] [place] [address] [facility] OFFICE (at [facility]) [address] [place] [address] [facility] SYRINGE EXCHANGE PROGRAM & HIV SCREENING [address] [place] [address] [place] SYRING[place] EXCHANGE PROGRAM [address] [place] [address] Behavioral Health Urgent Care: [facility] Counseling Indvidual and Group Medication Management Case Management benefits applications housing assistance Substance abuse treatment Medication assisted treatment Employment Services/ Job Training https://theEdicynhio.org/ Recovery Resources [address] [place], [place] [address]: P: [phone] [address] [facility] [address], [place] [address] P: [phone] Our services include: Addiction Mental Health Treatment Assessment Psychiatry Medical Care Employment Housing Drug and Alcohol Prevention HIV/AIDS Prevention https://www.recres.org/ [facility] [place] [address] [place] [address] [place], [place] [address] [place] [address] [place] [address] [place] [address] [facility] [address] [place] [address] [place] [address] [place] [address] TMS Therapy/ Counseling Psychocological Testing for ADHD Medication Management In-Person/ Telemedicine https://www.Mabaya/ze ents-depression Memory & Psychological services [address] [place] [address], [place] [address] Neuropsychological Testing For ADHD https://www.memoryandpsych.com/ The [facility] - Main Office [address] [place] [id number] [id number] Providing xfai-eg-tnzs and telehealth services. Adult Case Management Community Education and Prevention Employment Outpatient Treatment - Counseling & Psychotherapy Psychiatric Services http://www.[facility].org/ [facility] [address] [address] [place] [facility] [address] [place] [address] Virtual Appointments! Now offering safe and convenient virtual client appointments to anyone in [place]! Individual Therapy Couples/Relationship Therapy Trauma/EMDR Therapy Art Therapy Play Therapy Senior Revenue Accountant Support: Parenting Skills, Parent Child Interaction Therapy, Parent Infant Interaction Therapy Meditation Dietitian/Meat Lugger Services Group Therapy Yoga https://www.Pebbles Interfaces. eFlix/ Jessica Espinoza [phone] Private Practice: Telehealth Only Specializes in EMDR for Trauma None documented in this encounter [facility] 08-23-2024 Telephone encounter Note It had been ordered for May so it , reordered. [facility] 08-23-2024 Miscellaneous Notes It had been ordered for May so it , reordered. Patient was expecting to have another Vit D lab test but has no orders. Can you place a Vit D blood lab test? Please advise. BRANDON Ibrahim documented in this encounter [facility] 08-23-2024 Telephone encounter Note Patient was expecting to have another Vit D lab test but has no orders. Can you place a Vit D blood lab test? Please advise. BRANDON Ibrahim [facility] 07-24-2024 Instructions Shmuel Merlos APRN.ENROUTE CONTROLLER - 07/24/2024 10:38 AM EDT Images from [...] treated. A physician, nurse practitioner or physician orthodontist assistant may treat with a short course [...] if symptoms resolve. documented in this encounter [facility] 07-24-2024 Note HNO ID: [id number] Author: SHMUEL MERLOS APRN.WILVER Service: ? Author Type: Nurse Practitioner Type: Progress Notes Filed: 07/24/2024 11:27 Note Text: Subjective The history is provided by the patient. No automotive parts interpreter was used. UTI This is a new [...] Ref Range Urine hCG (POCT) Negative Negative Camp Counselor (POCT) Internal QC OK - URINE CULTURE [...] in the next 2-3 days. Shmuel Merlos APRN.[facility] 07-24-2024 History of Present illness Narrative Subjective The history is provided by the patient. No automotive parts interpreter was used. UTI This is a new [...] Ref Range Urine hCG (POCT) Negative Negative Camp Counselor (POCT) Internal QC OK - URINE CULTURE [...] in the next 2-3 days. Shmuel Merlos APRN.ENROUTE CONTROLLER documented in this encounter [facility] 05-16-2024 Instructions Elvira Carr PA-C - 05/16/2024 [...] Elvira Carr PA-C documented in this encounter [facility] 05-16-2024 History of Present illness Narrative 05/16/2024 [...] 2020: TBI (traumatic brain injury) ([facility]) ALLERGIES Cats, Dust, and Grass Pollen MEDICATIONS [...] which included preparing to see the patient, xcue-pr-hzxo patient care, completing clinical documentation, performing a medically appropriate examination, counseling and educating the patient/family/caregiver, ordering medications, tests, or procedures, and communicating results to the patient/family/caregiver. documented in this encounter [facility] 02-23-2024 Instructions Natali Michel APRN.CNP - 02/23/2024 5:06 PM EDT Follow-up: [facility] [place] Occupational therapist in [place], [place] Located in: [facility] Address: [address] [place] [address] - over the counter Tylenol or ibuprofen as needed for pain - limit time on phone or computer -follow-up with occupational health documented in this encounter [facility] 02-23-2024 History of Present illness Narrative Images [...] pinched nerve. CHIEF COMPLAINT: This is an [place] [employer] [employer] Workers' Compensation ([facility]) injury claim for injury to the neck. [...] injury of this area prior to this [employer] Workers' Compensation ([facility]) injury claim. CURRENT STATUS OF INJURY: Current [...] Migraines TBI (traumatic brain injury) ([facility]) 2020 Past Surgical History: PAST SURGICAL HISTORY [...] -follow-up with [facility] [place] -work note given Natali Michel APRN.CNP 02/23/24 5:04 PM documented in this encounter [facility] 01-22-2024 Miscellaneous Notes Ordered The following approved [...] Patient returning call. She did go to [facility] when referred to ED. She was diagnosed with influenza and asthmatic bronchitis. She feels fine now. She was prescribed Albuterol / Ventolin. She is wondering if she can get refills for that from Dr. Ward. If she can she would like it to go to [facility] in [place]. Vm left to call and speak with [...] 11. : Pt denies Protocols used: Chest Dssf-WDZPD-ZR documented in this encounter [facility] 12-29-2023 History of Present illness Narrative SUBJECTIVE: [...] Migraines TBI (traumatic brain injury) ([facility]) 2019 FAMILY HISTORY Problem Relation Age of [...] a few. MDM: Patient presented to the [facility] today for strep testing. A strep test [...] - ICD9: 462, ICD10: J02.9 Linh Zambrano APRN.ENROUTE CONTROLLER documented in this encounter [facility] 11-27-2023 History of Present illness Narrative 1. Myopia, bilateral 2. Regular astigmatism of both eyes Finalized spec rx Ordering cl trials Continue artificial tears- consider adding gel nightly Follow-up as needed Kelsie Beard, OD November 27, 2023 4:16 PM documented in this encounter [facility] 10-22-2023 Telephone encounter Note Agree with eval [facility] 10-22-2023 Miscellaneous Notes Agree with eval Pt [...] 8. : Unknown. Protocols used: Cuts and Uhpliforodc-KVBAA-SG LM for patient to call back [facility]supporting Kim Ward DO[facility] 2 hours ago (7:12 AM) [facility] Dr. Ward I cut my cuticle [...] Thank you, Howard documented in this encounter [facility] 10-22-2023 Telephone encounter Note Pt calling in [...] 8. : Unknown. Protocols used: Cuts and Rssidjvjuog-TXHCO-GR [facility] 10-22-2023 Telephone encounter Note LM for patient to call back [facility] (supporting Kim Ward DO) 2 hours ago (7:12 AM) [facility] Dr. Ward I cut my cuticle [...] antibiotics to go away? Thank you, Howard [facility] 09-18-2023 Miscellaneous Notes Day # 5 since COVID19 symptom onset. Caregiver approved to return to work tomorrow for COVID19 absence per survey. Leadership notified. Doc flowsheets updated. Khari Murdock RN documented in this encounter [facility] 09-15-2023 Miscellaneous Notes Images from the original [...] Symptom Onset: 09-13-23 email for electronic communication: [email or web address] -Email sent to leadership: [email or web address] - Employee ID: [email or web address] Plan - Discussed positive COVID19 result. Reinforced self-isolation, avoiding public areas and gatherings. Mask while home with family and not isolated alone - Advised no work until cleared by Occupational Health. Clearance will be provided through RTW COVID19 questionnaire sent through [employer] message, followed by clearance email sent to correctional case manager (emails will be sent Friday through Friday) [...] Saldivar Date: 09/15/2023 Time: 8:17 PM Pager/Contact: [phone] documented in this encounter [facility] 09-15-2023 History of Present illness Narrative This note was created using CarePoint Solution[employer]. Subjective Howard Saldivar is a 18 year old female. HPI Presents with a chief complaint of nasal congestion, sore throat, cough over the past 2 days. No fever. She has had a headache. No diarrhea or vomiting. Cough just started this morning. She has tried some Zyrtec paqs-ona-senrgoa and tried her migraine medicine. She denies [...] Migraines TBI (traumatic brain injury) ([facility]) 2019 Current Outpatient Medications Medication Sig Dispense [...] Lynn Medina PA-C documented in this encounter [facility] 09-15-2023 Instructions Lynn Medina PA-C - 09/15/2023 9:07 AM EST May continue zyrtec, consider adding decongestant like sudafed or phenylephrine If not better in 1 week or have fever after 5 days be seen again. documented in this encounter [facility] 07-17-2023 History of Present illness Narrative UNIVERSAL [...] Finish Time: 1040 documented in this encounter [facility] 07-11-2023 Miscellaneous Notes Patient is scheduled Reordered Howard is asking if Dr. Ward can put an order in for the tilt table that . She is concerned because she said the initial request for reorder was sent to the tile inspector who initially ordered it and they have not replaced it. documented in this encounter [facility] 07-10-2023 Miscellaneous Notes Phoned and spoke to the patient regarding the tilt order that has . Will await Dr. Hu's return to see if he wants to see the the patient in OPD before reordering the tilt. The patient acknowledges understanding. documented in this encounter [facility] 06-13-2023 Instructions Kim Ward DO - 06/13/2023 4:43 PM EDT The Alli Program [email or web address] Ruby Protocol for exercise: [email or web address] Salt tablets Nuun tablet Nooma documented in this encounter [facility] 06-13-2023 History of Present illness Narrative [facility] Today's Date: June 13, 2023 Patient presents with: ED Follow-up HPI: Howard Saldivar is an 18 year old female who presents for: Seen in [place] ED 06/07/23 for syncopal episodes She had [...] Also has depression She is currently in jehovah's witness group 12 step program Started wearing compression [...] which included preparing to see the patient, uoks-wq-okkb patient care, completing clinical documentation, performing a medically appropriate examination, counseling and educating the patient/family/caregiver, and ordering medications, tests, or procedures. Kim Ward DO documented in this encounter [facility] 06-09-2023 Miscellaneous Notes See TE 06/09/23. Rox Sales RN documented in this encounter [facility] 02-24-2023 History of Present illness Narrative Howard [...] OB History No obstetric history on file. Machine Biller History LMP: 01/10/2023 (Approximate), Having periods Age at Menarche: Age at First : Age at Menopause: Machine Biller History Comments: Sexual Activity: Not Asked; No partner data on record; Not asked Contraception: No contraception data on record PAST MEDICAL HISTORY Diagnosis Date Depression Migraines TBI (traumatic brain injury) ([facility]) 2019 PAST SURGICAL HISTORY Procedure Laterality Date [...] 3 - Low documented in this encounter [facility] 01-08-2023 History of Present illness Narrative Vitreous [...] Herminia Yee OD documented in this encounter [facility] 12-12-2022 History of Present illness Narrative Howard [...] Miguel Bunch APRN.CNP documented in this encounter [facility] 12-12-2022 Instructions José Miguel Bunch APRN.CNP - [...] even if the symptoms go away. 2. Wlmi-mpk-aoeakaf pain medication may be taken or other [...] him or her). documented in this encounter [facility] 10-23-2022 Miscellaneous Notes Pt calling in to request change of pharmacy Med pended FARZANA-08/16/22 NOV-NA documented in this encounter [facility] 10-08-2022 History of Present illness Narrative EARMOLD IMPRESSIONS Name: Howard Saldivar [facility]#: [id number] Date of Service: 10/08/2022 Date of : [...] Phonak Serenity Choice Sleep plugs. Gary [place], [facility] Clinical and Hearing Implant Chamber Worker documented in this encounter [facility] 09-04-2022 History of Present illness Narrative EVENT MONITOR DISPOSABLE PATCH INSTRUCTIONS Patient Name: Howard Saldivar [facility] Number: [id number] Skin prepped and cleansed with alcohol Patch secured to prepped area Monitor Activated Serial #: [id number] Patient Instructed: Prescribed order timeframe Bathing guidelines Usage of event button and diary documentation Return of monitor at the end of prescribed order Call with problems [phone] or [phone] ext. [phone] Patient expresses a good understanding of instructions Susi Mckinney documented in this encounter [facility] 08-16-2022 Instructions Kim Ward DO - 08/16/2022 10:54 AM EDT [email or web address] documented in this encounter [facility] 08-16-2022 History of Present illness Narrative August [...] Kim Ward DO documented in this encounter [facility] 05-06-2022 Instructions Kim Ward DO - 05/06/2022 6:26 PM EDT Ruby protocol for exercise Compression stockings Fluids with electrolytes such as Nuun, Nooma, Coconut water Increase salt or add salt tablets documented in this encounter [facility] 05-06-2022 History of Present illness Narrative [facility] CC: Physical Howard Saldivar is a 17 [...] Kim Ward DO documented in this encounter [facility] Evaluation note Diagnosis Syncope, unspecified syncope type- [...] single bacterial disease [facility] Syncope, unspecified syncope type- Primary [facility] Diagnosis Encounter for initial prescription of Nexplanon- Primary [facility] Diagnosis Lightheadedness- Primary Dizziness and giddiness Vasovagal syncope Syncope and collapse Palpitations [facility] Diagnosis Lightheadedness- Primary Dizziness and giddiness [facility] Diagnosis Abnormal auditory perception, unspecified laterality- Primary [facility]* Diagnosis Acute otitis media, right- Primary Unspecified otitis media [facility]* Diagnosis Vitreous floaters of right eye- Primary [facility]* Diagnosis Irregular menstrual cycle- Primary [facility] noteNo assessment information availableWCincinnati [facility] Work Phone: Evaluation note* Diagnosis Syncope, unspecified syncope type- Primary Eating disorder, unspecified type [facility] Diagnosis Lightheadedness- Primary Dizziness and giddiness [facility] Diagnosis Syncope, unspecified syncope type- Primary [facility] Diagnosis Viral URI with cough- Primary Acute upper respiratory infections of unspecified site [facility] Diagnosis Myopia, bilateral- Primary Myopia Regular astigmatism of both eyes Regular astigmatism documented in this encounter [facility] note* Diagnosis Sore throat- Primary Acute pharyngitis Viral pharyngitis Acute pharyngitis documented in this encounter [facility] note* Diagnosis Vitamin D deficiency Unspecified vitamin D deficiency [facility]* Diagnosis Headache, unspecified headache type- Primary Neck pain Cervicalgia Injury of neck, initial encounter [facility]* Diagnosis Unspecified injury of neck, initial encounter- Primary [facility]* Diagnosis UTI symptoms- Primary Other symptoms involving urinary system Dysuria documented in this encounter [facility] note* Diagnosis Acute cystitis with hematuria- Primary Acute cystitis documented in this encounter [facility] note* Diagnosis Vitamin D deficiency- Primary Unspecified vitamin D deficiency [facility] Diagnosis Encounter for supervision of high [...] in first trimester documented in this encounter [facility] note* Diagnosis 12 weeks gestation of - Primary state, incidental Encounter for supervision of high risk in first trimester, antepartum [facility] Diagnosis Encounter for screening for malformation using ultrasound- Primary Encounter for supervision of high risk in first trimester, antepartum 12 weeks gestation of state, incidental History of eating disorder Personal history of other mental disorder [facility]* Diagnosis Mild intermittent asthma with acute exacerbation- Primary Unspecified asthma, with exacerbation 15 weeks gestation of state, incidental [facility] Diagnosis Supervision of high risk in second trimester- Primary Unspecified high-risk 16 weeks gestation of state, incidental [facility]* Diagnosis Vaginal spotting- Primary Other specified noninflammatory disorder of vagina Vaginal discharge Leukorrhea, not specified as infective 16 weeks gestation of state, incidental [facility]* Diagnosis Encounter for medical examination to establish care- Primary Exercise-induced asthma Exercise induced bronchospasm 17 weeks gestation of state, incidental Migraine with aura, not intractable, without status migrainosus Gastroesophageal reflux disease, unspecified whether esophagitis present documented in this encounter [facility] note* Diagnosis Encounter for anatomic survey (HCC)- Primary Encounter for anatomic survey 20 weeks gestation of ([facility]) state, incidental documented in this encounter [facility] note* Diagnosis 20 weeks gestation of (HCC)- Primary state, incidental Supervision of high risk in second trimester ([facility]) Unspecified high-risk Asthma affecting in first trimester ([facility]) documented in this encounter [facility] note* Diagnosis Supervision of high risk in second trimester (HCC)- Primary Unspecified high-risk Screening for diabetes mellitus Encounter for supervision of normal first in third trimester ([facility]) Supervision of normal first 24 weeks gestation of ([facility]) state, incidental * Assessment & Plan Note - Nicky Connell MD - 02/16/2025 9:11 AM EDT Associated Problem(s): Supervision of high risk in second trimester (HCC) documented in this encounter [facility] note* Diagnosis Supervision of high risk in second trimester (HCC)- Primary Unspecified high-risk Screening for diabetes mellitus Encounter for supervision of normal first in third trimester (HCC) Supervision of normal first 24 weeks gestation of ([facility]) state, incidental Sore throat- Primary Acute pharyngitis Acute URI Acute upper respiratory infections of unspecified site documented in this encounter [facility] note* Diagnosis Supervision of high risk in second trimester (HCC)- Primary Unspecified high-risk Screening for diabetes mellitus Encounter for supervision of normal first in third trimester (HCC) Supervision of normal first 24 weeks gestation of ([facility]) state, incidental Acute non-recurrent pansinusitis- Primary [facility] Diagnosis Supervision of high risk in second trimester ([facility])- Primary Unspecified high-risk Screening for diabetes mellitus Encounter for supervision of normal first in third trimester ([facility]) Supervision of normal first 24 weeks gestation of ([facility]) state, incidental Supervision of high risk in second trimester ([facility])- Primary Unspecified high-risk 28 weeks gestation of ([facility]) state, incidental Asthma affecting in first trimester ([facility]) History of depression Personal history of other mental disorder History of eating disorder Personal history of other mental disorder [facility] Diagnosis Supervision of high risk in second trimester ([facility])- Primary Unspecified high-risk Screening for diabetes mellitus Encounter for supervision of normal first in third trimester ([facility]) Supervision of normal first 24 weeks gestation of ([facility]) state, incidental Supervision of high risk in second trimester ([facility])- Primary Unspecified high-risk History of depression Personal history of other mental disorder History of eating disorder Personal history of other mental disorder Exercise-induced asthma ([facility]) Exercise induced bronchospasm Migraine with aura, not intractable, without status migrainosus 29 weeks gestation of ([facility]) state, incidental [facility] Diagnosis Supervision of high risk in second trimester ([facility])- Primary Unspecified high-risk Screening for diabetes mellitus Encounter for supervision of normal first in third trimester ([facility]) Supervision of normal first 24 weeks gestation of ([facility]) state, incidental Supervision of high risk in third trimester ([facility])- Primary Unspecified high-risk 32 weeks gestation of ([facility]) state, incidental History of depression Personal history of other mental disorder Exercise-induced asthma ([facility]) Exercise induced bronchospasm Uterine size-date discrepancy, third trimester ([facility]) [facility]* Diagnosis Supervision of high risk in second trimester ([facility])- Primary Unspecified high-risk Screening for diabetes mellitus Encounter for supervision of normal first in third trimester ([facility]) Supervision of normal first 24 weeks gestation of ([facility]) state, incidental Supervision of high risk in third trimester (HCC)- Primary Unspecified high-risk 33 weeks gestation of ([facility]) state, incidental Abdominal trauma, initial encounter documented in this encounter [facility] note* Diagnosis Supervision of high risk in second trimester (HCC)- Primary Unspecified high-risk Screening for diabetes mellitus Encounter for supervision of normal first in third trimester ([facility]) Supervision of normal first 24 weeks gestation of ([facility]) state, incidental 34 weeks gestation of ([facility])- Primary state, incidental Supervision of high risk in third trimester ([facility]) Unspecified high-risk * Assessment & Plan Note - Tati Bowles MD - 04/28/2025 11:45 AM EDTAssociated Problem(s): Supervision of high risk in third trimester ([facility]) Orders: URINE OB DIP B/O documented in this encounter [facility] note* Diagnosis Supervision of high risk in second trimester (HCC)- Primary Unspecified high-risk Screening for diabetes mellitus Encounter for supervision of normal first in third trimester ([facility]) Supervision of normal first 24 weeks gestation of ([facility]) state, incidental Encounter for ultrasound to check growth ([facility])- Primary Encounter for routine screening for malformation using ultrasonics Uterine size-date discrepancy, third trimester ([facility]) 34 weeks gestation of ([facility]) state, incidental 34 weeks gestation of ([facility])- Primary state, incidental Supervision of high risk in third trimester ([facility]) Unspecified high-risk documented in this encounter [facility] note* Diagnosis Supervision of high risk in second trimester (HCC)- Primary Unspecified high-risk Screening for diabetes mellitus Encounter for supervision of normal first in third trimester ([facility]) Supervision of normal first 24 weeks gestation of ([facility]) state, incidental Supervision of high risk in third trimester ([facility])- Primary Unspecified high-risk Exercise-induced asthma ([facility]) Exercise induced bronchospasm Uterine size-date discrepancy, third trimester ([facility]) 33 weeks gestation of ([facility]) state, incidental 34 weeks gestation of ([facility])- Primary state, incidental Supervision of high risk in third trimester ([facility]) Unspecified high-risk documented in this encounter [facility] note* Diagnosis Supervision of high risk in second trimester (HCC)- Primary Unspecified high-risk Screening for diabetes mellitus Encounter for supervision of normal first in third trimester ([facility]) Supervision of normal first 24 weeks gestation of (HCC) state, incidental 34 weeks gestation of (HCC)- Primary state, incidental Supervision of high risk in third trimester (HCC) Unspecified high-risk Supervision of high risk in third trimester (HCC)- Primary Unspecified high-risk 35 weeks gestation of ([facility]) state, incidental documented in this encounter [facility] note* Diagnosis Supervision of high risk in second trimester (HCC)- Primary Unspecified high-risk Screening for diabetes mellitus Encounter for supervision of normal first in third trimester ([facility]) Supervision of normal first 24 weeks gestation of ([facility]) state, incidental 34 weeks gestation of ([facility])- Primary state, incidental Supervision of high risk in third trimester ([facility]) Unspecified high-risk 38 weeks gestation of ([facility])- Primary state, incidental Supervision of high risk in third trimester ([facility]) Unspecified high-risk * Assessment & Plan Note - Tati Bowles MD - 05/24/2025 11:37 AM EDTAssociated Problem(s): Supervision of high risk in third trimester (HCC) Orders: URINE OB DIP B/O documented in this encounter [facility] note* Diagnosis Supervision of high risk in second trimester (HCC)- Primary Unspecified high-risk Screening for diabetes mellitus Encounter for supervision of normal first in third trimester ([facility]) Supervision of normal first 24 weeks gestation of ([facility]) state, incidental 34 weeks gestation of ([facility])- Primary state, incidental Supervision of high risk in third trimester (HCC) Unspecified high-risk 38 weeks gestation of ([facility])- Primary state, incidental Supervision of high risk in third trimester ([facility]) Unspecified high-risk Supervision of high risk in third trimester ([facility])- Primary Unspecified high-risk Uterine size-date discrepancy, third trimester (HCC) 39 weeks gestation of (HCC) state, incidental * Assessment & Plan Note - Nicky Connell MD - 06/01/2025 11:12 AM EDTAssociated Problem(s): Supervision of high risk in third trimester (HCC) Orders: URINE OB DIP B/O [facility] Diagnosis Supervision of high risk in second trimester (HCC)- Primary Unspecified high-risk Screening for diabetes mellitus Encounter for supervision of normal first in third trimester ([facility]) Supervision of normal first 24 weeks gestation of (HCC) state, incidental 34 weeks gestation of (HCC)- Primary state, incidental Supervision of high risk in third trimester (HCC) Unspecified high-risk 38 weeks gestation of ([facility])- Primary state, incidental Supervision of high risk [...] third trimester (HCC) documented in this encounter [facility] for referral (narrative)* Outpatient Procedure (Routine) - Authorized Specialty Diagnoses / Procedures Referred By Contac t Referred To [facility] Diagnoses Syncope, unspecified syncope type Procedures ECG COMPLETE ECG ROUTINE ECG W/LEAST 12 LDS W/I&R Jacques Hu DO [address] [place] [address] [facility] [place] [address] [place] [address] Referral ID Status Reason Start Date Expiration Date Visits Requested Visits Authorized [id number] Authorized Auto-Generat ed Referral 06/04/2022 06/04/2023 1 1 [facility] for referral (narrative)* Outpatient Procedure (Routine) - Authorized Specialty Diagnoses / Procedures Referred By Yumikoac t Referred To Contact [facility] Diagnoses Irregular menstrual cycle Encounter for surveillance of implantable subdermal contraceptive Procedures NEXPLANON REMOVAL REMOVAL NON-BIODEGRADABLE DRUG DELIVERY IMPLANT ETONOGESTREL IMPLANT SYSTEM Ladonna Laura APRN.CNP [address] [place] [address] [address] Referral ID Status Reason Start Date Expiration Date Visits Requested Visits Authorized [id number] Authorized Auto-Generat ed Referral 02/24/2023 10/12/2023 1 1 [facility] for referral (narrative)* Diagnostic Procedure Only (Routine) - Pending Review Specialty Diagnoses / Procedures Referred By Damon t Referred To Contact [facility] Diagnoses Encounter for supervision of high risk in first trimester, antepartum 8 weeks gestation of with uncertain dates in first trimester History of eating disorder Procedures OBSTETRIC ULTRASOUND WHI US PREG UTERUS AFTER 1ST TRIMEST GESTATION Alli Forrester APRN.CNP [address] [place] [address] [address] Referral ID Status Reason Start Date Expiration Date Visits Requested Visits Authorized [id number] Pending Review Auto-Generat ed Referral 10/27/2024 10/27/2025 1 1 * Diagnostic Procedure Only (Routine) - Pending Review Specialty Diagnoses / Procedures Referred By Damon t Referred To Contact [facility] Diagnoses Encounter for supervision of high risk in first trimester, antepartum 8 weeks gestation of with uncertain dates in first trimester History of eating disorder Procedures OBSTETRIC ULTRASOUND WHI US PREG UTERUS AFTER 1ST TRIMEST GESTATION Alli Forrester APRN.CNP [address] [place] [address] [facility] [place] [address] [place] [address] Referral ID Status Reason Start Date Expiration Date Visits Requested Visits Authorized [id number] Pending Review Auto-Generat ed Referral 10/27/2024 10/27/2025 1 1 [facility] Summary Purpose Family History No Family History Records FoundNo Family History Records FoundNo Family History Records FoundNo Family History Records FoundNo Family History Records Found Advance Directives No Advanced Directives Records Found Advance Directive Response Recorded Date/ Time Living Will No June 07 2:18pm Power of [employer] No June 07 023 2:18pm Advance Directive Response Recorded Date/ Time Living Will No December 30, 2023 10:43am Power of [employer] No December 29 10:43am Reason for Referral Specialty Diagnoses / Procedures Referred By Damon allan Referred To Contact Diagnoses Syncope, unspecified syncope type Procedures CONSULT TO SYNCOPE CLINIC OFFICE/OUTPATIENT [facility] 60-74 MINUTES Kim Ward DO [address] [place] [address] Referral ID Status Reason Start Date Expiration Date Visits Requested Visits Authorized [id number] Authorized PCP Requested Referral 05/06/2022 05/06/2023 1 [...] section and content) DATE CREATED AUTHOR 11/24/2021 [facility] DATE CREATED AUTHOR AUTHOR'S ORGANIZ ATION 05/14/[address] [facility] DATE CREATED AUTHOR AUTHOR'S ORGANIZ ATION 02/26/2024 [facility] nt DATE CREATED AUTHOR AUTHOR'S ORGANIZ ATION 12/17/2024 [facility] DATE CREATED AUTHOR AUTHOR'S ORGANIZ ATION 06/05/2025 [facility] Source Comments (unrecognize d section and content) In the event this informatio n is protected by the Federal Confidentiality of Alcohol and Drug Abuse Patient Records regulations: The Federal rules restrict any use of the information to criminally investigate or prosecute any alcohol or drug abuse patient.[facility] the event this information is protected by the Federal Confidentiality of Alcohol and Drug Abuse Patient Records regulations: The Federal rules restrict any use of the information to criminally investigate or prosecute any alcohol or drug abuse patient.[facility] CenterIn the event this information is protected by the Federal Confidentiality of Alcohol and Drug Abuse Patient Records regulations: The Federal rules restrict any use of the information to criminally investigate or prosecute any alcohol or drug abuse patient.[facility] CenterIn the event this information is protected by the Federal Confidentiality of Alcohol and Drug Abuse Patient Records regulations: The Federal rules restrict any use of the information to criminally investigate or prosecute any alcohol or drug abuse patient.[facility] CenterIn the event this information is protected by the Federal Confidentiality of Alcohol and Drug Abuse Patient Records regulations: The Federal rules restrict any use of the information to criminally investigate or prosecute any alcohol or drug abuse patient.[facility] CenterIn the event this information is protected by the Federal Confidentiality of Alcohol and Drug Abuse Patient Records regulations: The Federal rules restrict any use of the information to criminally investigate or prosecute any alcohol or drug abuse patient.[facility] CenterIn the event this information is protected by the Federal Confidentiality of Alcohol and Drug Abuse Patient Records regulations: The Federal rules restrict any use of the information to criminally investigate or prosecute any alcohol or drug abuse patient.[facility] CenterIn the event this information is protected by the Federal Confidentiality of Alcohol and Drug Abuse Patient Records regulations: The Federal rules restrict any use of the information to criminally investigate or prosecute any alcohol or drug abuse patient.[facility] CenterIn the event this information is protected by the Federal Confidentiality of Alcohol and Drug Abuse Patient Records regulations: The Federal rules restrict any use of the information to criminally investigate or prosecute any alcohol or drug abuse patient.[facility] CenterIn the event this information is protected by the Federal Confidentiality of Alcohol and Drug Abuse Patient Records regulations: The Federal rules restrict any use of the information to criminally investigate or prosecute any alcohol or drug abuse patient.[facility] CenterIn the event this information is protected by the Federal Confidentiality of Alcohol and Drug Abuse Patient Records regulations: The Federal rules restrict any use of the information to criminally investigate or prosecute any alcohol or drug abuse patient.[facility] CenterIn the event this information is protected by the Federal Confidentiality of Alcohol and Drug Abuse Patient Records regulations: The Federal rules restrict any use of the information to criminally investigate or prosecute any alcohol or drug abuse patient.[facility] CenterIn the event this information is protected by the Federal Confidentiality of Alcohol and Drug Abuse Patient Records regulations: The Federal rules restrict any use of the information to criminally investigate or prosecute any alcohol or drug abuse patient.[facility] CenterIn the event this information is protected by the Federal Confidentiality of Alcohol and Drug Abuse Patient Records regulations: The Federal rules restrict any use of the information to criminally investigate or prosecute any alcohol or drug abuse patient.[facility] CenterIn the event this information is protected by the Federal Confidentiality of Alcohol and Drug Abuse Patient Records regulations: The Federal rules restrict any use of the information to criminally investigate or prosecute any alcohol or drug abuse patient.[facility] CenterIn the event this information is protected by the Federal Confidentiality of Alcohol and Drug Abuse Patient Records regulations: The Federal rules restrict any use of the information to criminally investigate or prosecute any alcohol or drug abuse patient.[facility] CenterIn the event this information is protected by the Federal Confidentiality of Alcohol and Drug Abuse Patient Records regulations: The Federal rules restrict any use of the information to criminally investigate or prosecute any alcohol or drug abuse patient.[facility] CenterIn the event this information is protected by the Federal Confidentiality of Alcohol and Drug Abuse Patient Records regulations: The Federal rules restrict any use of the information to criminally investigate or prosecute any alcohol or drug abuse patient.[facility] CenterIn the event this information is protected by the Federal Confidentiality of Alcohol and Drug Abuse Patient Records regulations: The Federal rules restrict any use of the information to criminally investigate or prosecute any alcohol or drug abuse patient.[facility] CenterIn the event this information is protected by the Federal Confidentiality of Alcohol and Drug Abuse Patient Records regulations: The Federal rules restrict any use of the information to criminally investigate or prosecute any alcohol or drug abuse patient.[facility] CenterIn the event this information is protected by the Federal Confidentiality of Alcohol and Drug Abuse Patient Records regulations: The Federal rules restrict any use of the information to criminally investigate or prosecute any alcohol or drug abuse patient.[facility] CenterIn the event this information is protected by the Federal Confidentiality of Alcohol and Drug Abuse Patient Records regulations: The Federal rules restrict any use of the information to criminally investigate or prosecute any alcohol or drug abuse patient.[facility] CenterIn the event this information is protected by the Federal Confidentiality of Alcohol and Drug Abuse Patient Records regulations: The Federal rules restrict any use of the information to criminally investigate or prosecute any alcohol or drug abuse patient.[facility] CenterIn the event this information is protected by the Federal Confidentiality of Alcohol and Drug Abuse Patient Records regulations: The Federal rules restrict any use of the information to criminally investigate or prosecute any alcohol or drug abuse patient.[facility] CenterIn the event this information is protected by the Federal Confidentiality of Alcohol and Drug Abuse Patient Records regulations: The Federal rules restrict any use of the information to criminally investigate or prosecute any alcohol or drug abuse patient.[facility] CenterIn the event this information is protected by the Federal Confidentiality of Alcohol and Drug Abuse Patient Records regulations: The Federal rules restrict any use of the information to criminally investigate or prosecute any alcohol or drug abuse patient.[facility] CenterIn the event this information is protected by the Federal Confidentiality of Alcohol and Drug Abuse Patient Records regulations: The Federal rules restrict any use of the information to criminally investigate or prosecute any alcohol or drug abuse patient.[facility] CenterIn the event this information is protected by the Federal Confidentiality of Alcohol and Drug Abuse Patient Records regulations: The Federal rules restrict any use of the information to criminally investigate or prosecute any alcohol or drug abuse patient.[facility] CenterIn the event this information is protected by the Federal Confidentiality of Alcohol and Drug Abuse Patient Records regulations: The Federal rules restrict any use of the information to criminally investigate or prosecute any alcohol or drug abuse patient.[facility] CenterIn the event this information is protected by the Federal Confidentiality of Alcohol and Drug Abuse Patient Records regulations: The Federal rules restrict any use of the information to criminally investigate or prosecute any alcohol or drug abuse patient.[facility] CenterIn the event this information is protected by the Federal Confidentiality of Alcohol and Drug Abuse Patient Records regulations: The Federal rules restrict any use of the information to criminally investigate or prosecute any alcohol or drug abuse patient.[facility] CenterIn the event this information is protected by the Federal Confidentiality of Alcohol and Drug Abuse Patient Records regulations: The Federal rules restrict any use of the information to criminally investigate or prosecute any alcohol or drug abuse patient.[facility] CenterIn the event this information is protected by the Federal Confidentiality of Alcohol and Drug Abuse Patient Records regulations: The Federal rules restrict any use of the information to criminally investigate or prosecute any alcohol or drug abuse patient.[facility] CenterIn the event this information is protected by the Federal Confidentiality of Alcohol and Drug Abuse Patient Records regulations: The Federal rules restrict any use of the information to criminally investigate or prosecute any alcohol or drug abuse patient.[facility] CenterIn the event this information is protected by the Federal Confidentiality of Alcohol and Drug Abuse Patient Records regulations: The Federal rules restrict any use of the information to criminally investigate or prosecute any alcohol or drug abuse patient.[facility] CenterIn the event this information is protected by the Federal Confidentiality of Alcohol and Drug Abuse Patient Records regulations: The Federal rules restrict any use of the information to criminally investigate or prosecute any alcohol or drug abuse patient.[facility] CenterIn the event this information is protected by the Federal Confidentiality of Alcohol and Drug Abuse Patient Records regulations: The Federal rules restrict any use of the information to criminally investigate or prosecute any alcohol or drug abuse patient.[facility] CenterIn the event this information is protected by the Federal Confidentiality of Alcohol and Drug Abuse Patient Records regulations: The Federal rules restrict any use of the information to criminally investigate or prosecute any alcohol or drug abuse patient.[facility] CenterIn the event this information is protected by the Federal Confidentiality of Alcohol and Drug Abuse Patient Records regulations: The Federal rules restrict any use of the information to criminally investigate or prosecute any alcohol or drug abuse patient.[facility] CenterIn the event this information is protected by the Federal Confidentiality of Alcohol and Drug Abuse Patient Records regulations: The Federal rules restrict any use of the information to criminally investigate or prosecute any alcohol or drug abuse patient.[facility] CenterIn the event this information is protected by [...] or prosecute any alcohol or drug abuse patient.[facility] CenterIn the event this information is protected by the Federal Confidentiality of Alcohol and Drug Abuse Patient Records regulations: The Federal rules restrict any use of the information to criminally investigate or prosecute any alcohol or drug abuse patient.[facility] CenterIn the event this information is protected by the Federal Confidentiality of Alcohol and Drug Abuse Patient Records regulations: The Federal rules restrict any use of the information to criminally investigate or prosecute any alcohol or drug abuse patient.[facility] CenterIn the event this information is protected by the Federal Confidentiality of Alcohol and Drug Abuse Patient Records regulations: The Federal rules restrict any use of the information to criminally investigate or prosecute any alcohol or drug abuse patient.[facility] CenterIn the event this information is protected by the Federal Confidentiality of Alcohol and Drug Abuse Patient Records regulations: The Federal rules restrict any use of the information to criminally investigate or prosecute any alcohol or drug abuse patient.[facility] CenterIn the event this information is protected by the Federal Confidentiality of Alcohol and Drug Abuse Patient Records regulations: The Federal rules restrict any use of the information to criminally investigate or prosecute any alcohol or drug abuse patient.[facility] CenterIn the event this information is protected by the Federal Confidentiality of Alcohol and Drug Abuse Patient Records regulations: The Federal rules restrict any use of the information to criminally investigate or prosecute any alcohol or drug abuse patient.[facility] CenterIn the event this information is protected by the Federal Confidentiality of Alcohol and Drug Abuse Patient Records regulations: The Federal rules restrict any use of the information to criminally investigate or prosecute any alcohol or drug abuse patient.[facility] CenterIn the event this information is protected by the Federal Confidentiality of Alcohol and Drug Abuse Patient Records regulations: The Federal rules restrict any use of the information to criminally investigate or prosecute any alcohol or drug abuse patient.[facility] CenterIn the event this information is protected by the Federal Confidentiality of Alcohol and Drug Abuse Patient Records regulations: The Federal rules restrict any use of the information to criminally investigate or prosecute any alcohol or drug abuse patient.[facility] CenterIn the event this information is protected by the Federal Confidentiality of Alcohol and Drug Abuse Patient Records regulations: The Federal rules restrict any use of the information to criminally investigate or prosecute any alcohol or drug abuse patient.[facility] CenterIn the event this information is protected by the Federal Confidentiality of Alcohol and Drug Abuse Patient Records regulations: The Federal rules restrict any use of the information to criminally investigate or prosecute any alcohol or drug abuse patient.[facility] CenterIn the event this information is protected by the Federal Confidentiality of Alcohol and Drug Abuse Patient Records regulations: The Federal rules restrict any use of the information to criminally investigate or prosecute any alcohol or drug abuse patient.[facility] CenterIn the event this information is protected by the Federal Confidentiality of Alcohol and Drug Abuse Patient Records regulations: The Federal rules restrict any use of the information to criminally investigate or prosecute any alcohol or drug abuse patient.[facility] CenterIn the event this information is protected by the Federal Confidentiality of Alcohol and Drug Abuse Patient Records regulations: The Federal rules restrict any use of the information to criminally investigate or prosecute any alcohol or drug abuse patient.[facility] CenterIn the event this information is protected by the Federal Confidentiality of Alcohol and Drug Abuse Patient Records regulations: The Federal rules restrict any use of the information to criminally investigate or prosecute any alcohol or drug abuse patient.[facility] CenterIn the event this information is protected by the Federal Confidentiality of Alcohol and Drug Abuse Patient Records regulations: The Federal rules restrict any use of the information to criminally investigate or prosecute any alcohol or drug abuse patient.[facility] CenterIn the event this information is protected by the Federal Confidentiality of Alcohol and Drug Abuse Patient Records regulations: The Federal rules restrict any use of the information to criminally investigate or prosecute any alcohol or drug abuse patient.[facility] CenterIn the event this information is protected by the Federal Confidentiality of Alcohol and Drug Abuse Patient Records regulations: The Federal rules restrict any use of the information to criminally investigate or prosecute any alcohol or drug abuse patient.[facility] CenterIn the event this information is protected by the Federal Confidentiality of Alcohol and Drug Abuse Patient Records regulations: The Federal rules restrict any use of the information to criminally investigate or prosecute any alcohol or drug abuse patient.[facility] CenterIn the event this information is protected by the Federal Confidentiality of Alcohol and Drug Abuse Patient Records regulations: The Federal rules restrict any use of the information to criminally investigate or prosecute any alcohol or drug abuse patient.[facility] Reason for Visit (unrecogniz ed section and content) Reason Comments Establish Care Reason Comments Insertion Of IUD nexplanon Specialty Diagnoses / Procedures Referred By Contac t Referred To Contact FAMILY MEDICINE Diagnoses Contraceptive management Contraceptive management Procedures INSERT DRUG IMPLANT DEVICE Nexplanon insertion/ subdermal arm implant Kim Ward DO [address] [place] [address] [place] [address] Referral ID Status Reason Start Date Expiration Date V isits Requested Visits Authorized [id number] Authorized 10/13/2021 10/12/2022 2 2 Reason Comments [...] Referred By Damon t Referred To Contact [facility] Diagnoses Encounter for supervision of high risk in first trimester, antepartum 8 weeks gestation of with uncertain dates in first trimester History of eating disorder Procedures OBSTETRIC ULTRASOUND WHI US PREG UTERUS AFTER 1ST TRIMEST GESTATION Alli Forrester APRN.ENROUTE CONTROLLER [address] [place] [address] Phone: tel: fax:[phone] [address] [place] [address] Referral ID Status Reason Start Date Expiration Date V isits Requested Visits Authorized [id number] Closed Auto-Generate d Referral 10/27/2024 10/27/2025 1 1 Reason Comments OB SOB, CP Reason Comments ER F/U Asthma Reason Onset Date Comments Care 12/23/2024 Reason Comments Follow Up Ob-Spotting Reason Comments Establish Care Specialty Diagnoses / Procedures Referred By Damon t Referred To Contact [facility] Diagnoses Encounter for supervision of high risk in first trimester, antepartum (HCC) 8 weeks gestation of (HCC) with uncertain dates in first trimester (HCC) History of eating disorder Procedures OBSTETRIC ULTRASOUND WHI US PREG UTERUS AFTER 1ST TRIMEST GESTATION Alli Forrester APRN.ENROUTE CONTROLLER [address] [place] [address] Phone: tel: fax:[phone] [facility] [place] [address] Referral ID Status Reason Start Date Expiration Date V isits Requested Visits Authorized [id number] Closed Auto-Generate d Referral 10/27/2024 10/27/2025 1 [...] Referred By Damon t Referred To Contact [facility] Diagnoses Supervision of high risk in third trimester ([facility]) 32 weeks gestation of ([facility]) Uterine size-date discrepancy, third trimester ([facility]) Procedures OBSTETRIC ULTRASOUND WHI US PREG UTERUS AFTER 1ST TRIMEST GESTATION Arlene Narayan APRN.CN [address] [place] [address] Phone: tel: fax: [address] [address] [place] [address] Referral ID Status Reason Start Date Expiration Date Visits Requested Visits Authorized [id number] Pending Review Auto-Genera eun Referral Patient Cleared [...] Care Teams (unrecognized sec tion and content) Ui Lead Developer Relationship Specialty Start Date End Date Kim Ward DO [address] [place], [place] 392112 PCP - General Family Practice 05/06/22 Ui Lead Developer Relationship Specialty Start Date End Date Kim Ward DO [address] [place], [place] [address]3872 PCP - General Family Practice 05/06/22 Ui Lead Developer Relationship Specialty Start Date End Date Kim Ward DO [address] [place], [place] 054112 PCP - General Family Medicine 05/06/22 Ui Lead Developer Relationship Specialty Start Date End Date Kim Ward DO [address] [place], [place] 453592 PCP - General Family Medicine 05/06/22 Jacques Hu, DO [address] [place] [address] Primary Staff Physician Cardiology 09/04/22 Ui Lead Developer Relationship Specialty Start Date End Date Kim Ward DO [address] [place], [place] 312432 PCP - General Family Medicine 05/06/22 Jacques Hu, DO [address] [place] [address] Primary Staff Physician Cardiology 09/04/22 Ui Lead Developer Relationship Specialty Start Date End Date Kim Ward DO [address] [place], [place] 148942 PCP - General Family Medicine 05/06/22 Jacques Hu, DO [address] [place] [address] Primary Staff Physician Cardiology 09/04/22 Ui Lead Developer Relationship Specialty Start Date End Date Kim Ward DO [address] [place], [place] 559582 PCP - General Family Medicine 05/06/22 Jacques Hu, DO [address] [place] [address] Primary Staff Physician Cardiology 09/04/22 Ui Lead Developer Relationship Specialty Start Date End Date Amstadt, Kim, DO [address] [place] [address] PCP - General Family Medicine 05/06/22 Jacques Hu DO [address] [place], [place] 3114406 Primary Staff Physician Cardiology 09/04/22 Team Status: Active Member Role Status Dates Kim Ward Primary Care Provider Active Team Status: Inactive Member Role Status Dates Dr. Mandy Fontaine MD Emergency Provider Active Sylvia Alvarez Primary Care Provider Active Ui Lead Developer Relationship Specialty Start Date End Date Kim Ward DO [address] [place] [address] PCP - General Family Medicine 05/06/22 Jacques Hu DO [address] [place] [address] Primary Staff Physician Cardiology 09/04/22 Ui Lead Developer Relationship Specialty Start Date End Date Kim Ward DO [address] [place] [address] PCP - General Family Medicine 05/06/22 Jacques Hu DO [address] [place] [address] Primary Staff Physician Cardiology 09/04/22 Ui Lead Developer Relationship Specialty Start Date End Date Kim Ward DO [address] [place], [place] 125422 PCP - General Family Medicine 05/06/22 Jacques Hu DO [address] [place] [address] Primary Staff Physician Cardiology 09/04/22 Ui Lead Developer Relationship Specialty Start Date End Date Kim Ward DO [address] [place], [place] 220522 PCP - General Family Medicine 05/06/22 Jacques Hu DO [address] [place] [address] Primary Staff Physician Cardiology 09/04/22 Ui Lead Developer Relationship Specialty Start Date End Date Kim Ward DO [address] [place] [address] PCP - General Family Medicine 05/06/22 Jacques Hu DO [address] [place] [address] Primary Staff Physician Cardiology 09/04/22 Ui Lead Developer Relationship Specialty Start Date End Date Kim Ward DO [address] [place], [place] 548382 PCP - General Family Medicine 05/06/22 Jacques Hu DO [address] [place] [address] Primary Staff Physician Cardiology 09/04/22 Ui Lead Developer Relationship Specialty Start Date End Date Kim Ward DO [address] [place] [address] PCP - General Family Medicine 05/06/22 Jacques Hu DO [address] [place] [address] Primary Staff Physician Cardiology 09/04/22 Ui Lead Developer Relationship Specialty Start Date End Date Kim Ward DO [address] [place], [place] 288572 PCP - General Family Medicine 05/06/22 Jacques Hu DO [address] [place], [place] 9747106 Primary Staff Physician Cardiology 09/04/22 Team Status: Inactive Member Role Status Dates Sylvia Alvarez Primary Care Provider Active Dr. Giovani Fernandez , Emergency Provider Active Ui Lead Developer Relationship Specialty Start Date End Date Kim Ward DO [address] [place] [address] PCP - General Family Medicine 05/06/22 Jacques Hu DO [address] [place], [place] 4242706 Primary Staff Physician Cardiology 09/04/22 Ui Lead Developer Relationship Specialty Start Date End Date Kim Ward DO [address] [place] [address] PCP - General Family Medicine 05/06/22 Jacques Hu DO [address] [place] [address] Primary Staff Physician Cardiology 09/04/22 Ui Lead Developer Relationship Specialty Start Date End Date Kim Ward DO [address] [place] [address] PCP - General Family Medicine 05/06/22 Jacques Hu DO [address] [place] [address] Primary Staff Physician Cardiology 09/04/22 Ui Lead Developer Relationship Specialty Start Date End Date Kim Ward DO [address] [place] [address] PCP - General Family Medicine 05/06/22 Jacques Hu DO [address] [place] [address] Primary Staff Physician Cardiology 09/04/22 Felicia Muller APRN.ENROUTE CONTROLLER [address] [place] [address] [facility] 09/17/24 Ui Lead Developer Relationship Specialty Start Date End Date Kim Ward DO [address] [place] [address] PCP - General Family Medicine 05/06/22 Jacques Hu DO [address] [place], [place] 2202506 Primary Staff Physician Cardiology 09/04/22 Felicia Muller APRN.ENROUTE CONTROLLER [address] [place] [address] [facility] Family [facility] 09/17/24 Ui Lead Developer Relationship Specialty Start Date End Date Kim Ward DO [address] [place] [address] PCP - General Family Medicine 05/06/22 Jacques Hu DO [address] [place], [place] 4313606 Primary Staff Physician Cardiology 09/04/22 Felicia Muller APRN.ENROUTE CONTROLLER [address] [place], [place] 567812 [facility] Family [facility] 09/17/24 Ui Lead Developer Relationship Specialty Start Date End Date Kim Ward DO [address] [place], [place] 211492 PCP - General Family Medicine 05/06/22 Jacques Hu DO [address] [place], [place] 3564006 Primary Staff Physician Cardiology 09/04/22 Felicia Muller APRN.ENROUTE CONTROLLER [address] [place] [address] [facility] 09/17/24 Ui Lead Developer Relationship Specialty Start Date End Date Kim Ward DO [address] [place] [address] PCP - General Family Medicine 05/06/22 Jacques Hu DO [address] [place], [place] 4655806 Primary Staff Physician Cardiology 09/04/22 Felicia Muller APRN.ENROUTE CONTROLLER [address] [place], [place] 562272 [facility] 09/17/24 Ui Lead Developer Relationship Specialty Start Date End Date Kim Ward DO [address] [place], [place] 561772 PCP - General Family Medicine 05/06/22 Jacques Hu DO [address] [place], [place] 0373006 Primary Staff Physician Cardiology 09/04/22 Felicia Muller APRN.ENROUTE CONTROLLER [address] [place], [place] 503322 [facility] 09/17/24 Ui Lead Developer Relationship Specialty Start Date End Date Kim Ward DO [address] [place], [place] 857232 PCP - General Family Medicine 12/06/24 Jacques Hu DO [address] [place], [place] 7923606 Primary Staff Physician Cardiology 09/04/22 Felicia Muller APRN.ENROUTE CONTROLLER [address] [place] [address] [facility] 09/17/24 Ui Lead Developer Relationship Specialty Start Date End Date Kim Ward DO [address] [place], [place] 043502 PCP - General Family Medicine 12/06/24 Jacques Hu DO [address] [place], [place] 9472706 Primary Staff Physician Cardiology 09/04/22 Felicia Muller APRN.ENROUTE CONTROLLER [address] [place], [place] 652372 [facility] 09/17/24 Jillian Hyde APRN.ENROUTE CONTROLLER [address] [place], [place] 563522 [facility] 12/23/24 Ui Lead Developer Relationship Specialty Start Date End Date Kim Ward DO [address] [place], [place] 803502 PCP - General Family Medicine 12/06/24 Jacques Hu DO [address] [place], [place] 2313406 Primary Staff Physician Cardiology 09/04/22 Felicia Muller APRN.ENROUTE CONTROLLER [address] [place] [address] [facility] 09/17/24 Jillian Hyde APRN.ENROUTE CONTROLLER [address] [place] [address] [facility] 12/23/24 Ui Lead Developer Relationship Specialty Start Date End Date Kim Ward DO [address] [place] [address] PCP - General Family Medicine 12/06/24 Jacques Hu DO [address] [place], [place] 5399506 Primary Staff Physician Cardiology 09/04/22 Felicia Muller APRN.ENROUTE CONTROLLER [address] [place], [place] 990452 [facility] 09/17/24 Jillian Hyde APRN.ENROUTE CONTROLLER [address] [place] [address] [facility] 12/23/24 Ui Lead Developer Relationship Specialty Start Date End Date Donte Singleton MD [address] [place] [address] PCP - General Family Medicine 12/29/24 Jacques Hu DO [address] [place] [address] Primary Staff Physician Cardiology 09/04/22 Felicia Muller APRN.ENROUTE CONTROLLER [address] [place] [address] [facility] 09/17/24 Jillian Hyde APRN.ENROUTE CONTROLLER [address] [place] [address] [facility] 12/23/24 Ui Lead Developer Relationship Specialty Start Date End Date Donte Singleton MD [address] [place] [address] PCP - General Family Medicine 12/29/24 Jacques Hu DO [address] [place] [address] Primary Staff Physician Cardiology 09/04/22 Felicia Muller APRN.ENROUTE CONTROLLER [address] [place], [place] 997422 [facility] 09/17/24 Jillian Hyde APRN.ENROUTE CONTROLLER [address] [place], [place] 55380212 [facility] 12/23/24 Ui Lead Developer Relationship Specialty Start Date End Date Donte Singleton MD [address] [place], [place] 791341 PCP - General Family Medicine 12/29/24 Jacques Hu DO [address] [place] [address] Primary Staff Physician Cardiology 09/04/22 Lexy Rushing APRN.ENROUTE CONTROLLER [address] [place], [place] 389931 [facility] 01/03/25 Shobha Sanchez APRN.ENROUTE CONTROLLER [address] [place], [place] 07822691 [facility] 01/03/25 Ui Lead Developer Relationship Specialty Start Date End Date Kim Ward DO [address] [place], [place] [id number] PCP - General Family Medicine 05/06/22 12/05/24 Kmi Ward DO [address] [place], [place] 03217212 PCP - General Family Medicine 12/06/24 12/28/24 Donte Singleton MD [address] [place], [place] 16047691 PCP - General Family Medicine 12/29/24 Jacques Hu DO [address] [place] [address] Primary Staff Physician Cardiology 09/04/22 Felicia Muller APRN.ENROUTE CONTROLLER [address] [place], [place] 395542 [facility] 09/17/24 01/02/25 Jillian Hyde, BIOMEDICAL EQUIPMENT SUPPORT SPECIALIST.ENROUTE CONTROLLER [address] [place], [place] 542912 [facility] 12/23/24 01/02/25 PodlogarLexy APRN.ENROUTE CONTROLLER [facility] [place], [place] [address] [facility] 01/03/25 Shobha Sanchez APRN.ENROUTE CONTROLLER [address] [place] [address] 118531 [facility] 01/03/25 Ui Lead Developer Relationship Specialty Start Date End Date Donte Singleton MD [address] [place] [address] 207871 PCP - General Family Medicine 12/29/24 Jacques Hu DO [address] [place] [address] Primary Staff Physician Cardiology 09/04/22 PodcalebarLexy BIOMEDICAL EQUIPMENT SUPPORT SPECIALIST.ENROUTE CONTROLLER [address] [place] [address] [facility] 01/03/25 Shobha Sanchez APRN.ENROUTE CONTROLLER [facility] [place] [address] [facility] 01/03/25 Ui Lead Developer Relationship Specialty Start Date End Date Donte Singleton MD [address] [place] [address] PCP - General Family Medicine 12/29/24 Jacques Hu DO [address] [place] [address] Primary Staff Physician Cardiology 09/04/22 PodlogarLexy BIOMEDICAL EQUIPMENT SUPPORT SPECIALIST.ENROUTE CONTROLLER [address] [place], [place] 4867[address] [facility] 01/03/25 Shobha Sanchez APRN.ENROUTE CONTROLLER [facility] [place], [place] [address] [facility] 01/03/25 Ui Lead Developer Relationship Specialty Start Date End Date Donte Singleton MD [address] [place], [place] 137371 PCP - General Family Medicine 12/29/24 Jacques Hu DO [address] [place] [address] Primary Staff Physician Cardiology 09/04/22 PodlogarLexy, BIOMEDICAL EQUIPMENT SUPPORT SPECIALIST.ENROUTE CONTROLLER [address] [place] [address] [facility] 01/03/25 Shobha Sanchez APRN.ENROUTE CONTROLLER [address] [place] [address] [facility] 01/03/25 Ui Lead Developer Relationship Specialty Start Date End Date Donte Singleton MD [address] [place] [address] PCP - General Family Medicine 12/29/24 Jacques Hu DO [address] [place] [address] Primary Staff Physician Cardiology 09/04/22 PodlogarLexy APRN.ENROUTE CONTROLLER [address] [place] [address] [facility] 01/03/25 Shobha Sanchez APRN.ENROUTE CONTROLLER [address] [place] [address] [facility] 01/03/25 Ui Lead Developer Relationship Specialty Start Date End Date Donte Singleton MD [address] [place] [address] PCP - General Family Medicine 12/29/24 Jacques Hu DO [address] [place] [address] Primary Staff Physician Cardiology 09/04/22 PodlogarLexy APRN.ENROUTE CONTROLLER [address] [place] [address] [facility] 01/03/25 Shobha Sanchez APRN.ENROUTE CONTROLLER [address] [place] [address] [facility] 01/03/25 Ui Lead Developer Relationship Specialty Start Date End Date Kim Ward DO [address] [place] [address] PCP - General Family Medicine 12/06/24 12/28/24 Donte Singleton MD [address] [place], [place] 144651 PCP - General Family Medicine 12/29/24 Jacques Hu DO [address] [place] [address] Primary Staff Physician Cardiology 09/04/22 Felicia Muller, BIOMEDICAL EQUIPMENT SUPPORT SPECIALIST.ENROUTE CONTROLLER [address] [place] [id number] [facility] 09/17/24 01/02/25 Jillian Hyde, BIOMEDICAL EQUIPMENT SUPPORT SPECIALIST.ENROUTE CONTROLLER [address] [place] [address] [facility] 12/23/24 01/02/25 Lexy Rushing, BIOMEDICAL EQUIPMENT SUPPORT SPECIALIST.ENROUTE CONTROLLER [address] [place], [place] 722891 [facility] 01/03/25 Shobha Sanchez, BIOMEDICAL EQUIPMENT SUPPORT SPECIALIST.ENROUTE CONTROLLER [address] [place], [place] 577361 [facility] 01/03/25 Ui Lead Developer Relationship Specialty Start Date End Date Donte Singleton MD [address] [place], [place] 40487691 PCP - General Family Medicine 12/29/24 Jacques Hu DO [address] [place] [address] Primary Staff Physician Cardiology 09/04/22 PodlogarLexy APRN.ENROUTE CONTROLLER [address] [place], [place] 399531 [facility] 01/03/25 Ui Lead Developer Relationship Specialty Start Date End Date Donte Singleton MD [address] [place], [place] 813851 PCP - General Family Medicine 12/29/24 Jacques Hu DO [address] [place], [place] 3464106 Primary Staff Physician Cardiology 09/04/22 PodlogarLexy APRN.ENROUTE CONTROLLER [address] [place] [address] [facility] 01/03/25 Shobha Sanchez APRN.ENROUTE CONTROLLER [address] [place] [address] 139651 [facility] 03/24/25 Ui Lead Developer Relationship Specialty Start Date End Date Donte Singleton MD [facility] [place], [place] 621841 PCP - General Family Medicine 12/29/24 Jacques Hu DO [address] [place], [place] 9846206 Primary Staff Physician Cardiology 09/04/22 PodLexy borja APRN.ENROUTE CONTROLLER [address] [place], [place] 96[address] [facility] 01/03/25 Shobha Sanchez APRN.ENROUTE CONTROLLER [address] [place], [place] 336561 [facility] 03/24/25 Ui Lead Developer Relationship Specialty Start Date End Date Donte Singleton MD [address] [place], [place] 046641 PCP - General Family Medicine 12/29/24 Jacques Hu DO [address] [place], [place] 9941306 Primary Staff Physician Cardiology 09/04/22 PodlogarLexy APRN.ENROUTE CONTROLLER [address] [place] [address] [facility] 01/03/25 Shobha Sanchez APRN.ENROUTE CONTROLLER [address] [place], [place] 669021 [facility] 03/24/25 Ui Lead Developer Relationship Specialty Start Date End Date Donte Singleton MD [address] [place], [place] 673741 PCP - General Family Medicine 12/29/24 Jacques Hu DO [address] [place] [address] Primary Staff Physician Cardiology 09/04/22 PodlogarLexy APRN.ENROUTE CONTROLLER [address] [place] [address] [facility] 01/03/25 Shobha Sanchez APRN.ENROUTE CONTROLLER [address] [place] [address] [facility] 03/24/25 Ui Lead Developer Relationship Specialty Start Date End Date Donte Singleton MD [address] [place] [address] PCP - General Family Medicine 12/29/24 Jacques Hu DO [address] [place], [place] 4087506 Primary Staff Physician Cardiology 09/04/22 PodlogarLexy APRN.ENROUTE CONTROLLER [address] [place] [address] [facility] 01/03/25 Shobha Sanchez APRN.ENROUTE CONTROLLER [address] [place] [address] [facility] 03/24/25 Ui Lead Developer Relationship Specialty Start Date End Date Donte Singleton MD [address] [place], [place] 449271 PCP - General Family Medicine 12/29/24 Jacques Hu DO [address] [place] [address] Primary Staff Physician Cardiology 09/04/22 PodlogarLexy APRN.ENROUTE CONTROLLER [address] [place] [address] [facility] 01/03/25 Shobha Sanchez APRN.ENROUTE CONTROLLER [facility] [place], [place] 908211 [facility] 03/24/25 Ui Lead Developer Relationship Specialty Start Date End Date Donte Singleton MD [address] [place], [place] 130031 PCP - General Family Medicine 12/29/24 Jacques Hu DO [address] [place] [address] Primary Staff Physician Cardiology 09/04/22 Podlogar, LAMINE PughN.ENROUTE CONTROLLER [address] [place] [address] [facility] 01/03/25 Shobha Sanchez APRN.ENROUTE CONTROLLER [address] [place] [address] [facility] 03/24/25 Ui Lead Developer Relationship Specialty Start Date End Date Donte Singleton MD [address] [place] [address] PCP - General Family Medicine 12/29/24 Jacques Hu DO [address] [place] [address] Primary Staff Physician Cardiology 09/04/22 PodlogarLexy, BIOMEDICAL EQUIPMENT SUPPORT SPECIALIST.ENROUTE CONTROLLER [address] [place] [address] [facility] Family Medicine 01/03/25 Shobha Sanchez APRN.ENROUTE CONTROLLER [address] [place], [place] 479531 [facility] 03/24/25 Ui Lead Developer Relationship Specialty Start Date End Date Donte Singleton MD [address] [place], [place] 505941 PCP - General Family Medicine 12/29/24 Jacques Hu DO [address] [place] [address] Primary Staff Physician Cardiology 09/04/22 Podlogar, Lexy, BIOMEDICAL EQUIPMENT SUPPORT SPECIALIST.ENROUTE CONTROLLER [address] [place], [place] 049961 [facility] Medicine 01/03/25 Shobha Sanchez APRN.ENROUTE CONTROLLER [address] [place], [place] 481651 [facility] Medicine 03/24/25 Ui Lead Developer Relationship Specialty Start Date End Date Donte Singleton MD [address] [place], [place] 526921 PCP - General Family Medicine 12/29/24 Jacques Hu DO [address] [place] [address] Primary Staff Physician Cardiology 09/04/22 PodlogarLexy BIOMEDICAL EQUIPMENT SUPPORT SPECIALIST.ENROUTE CONTROLLER [address] [place], [place] 225121 [facility] Family Medicine 01/03/25 Shobha Sanchez, TAMMY.ENROUTE CONTROLLER [address] [place], [place] 432861 [facility] Medicine 03/24/25 Goals (unrecognized section and content) [...] BE BASED ON THE PRIMARY CLINICAL RECORDS. [facility] Now In Store [facility]. provides no warranty or guarantee of the accuracy or completeness of information in this document.
[2025-06-06 05:53] LABS: Hematocrit 38.2 % (37-47); Hemoglobin 12.9 g/dL (12.0-15.0); Immature Granulocytes Count 0.090 X10^3/uL (0.0-0.0); Mean Corp Hgb Conc 33.8 g/dL (32-36); Mean Corpuscular Volume 84.3 fL (81-99); Mean Platelet Vol. 11.2 fl (6.2-12.0); NRBC Flagged by Analyzer 0 % (0-5); Platelet Count 258 K/mm3 (150-450); RBC Distribution Width CV 14.3 % (11.6-14.6); RBC Distribution Width SD 44.1 fl (35.1-43.9); Red Blood Count 4.53 M/mm3 (4.2-5.4); White Blood Count 11.5 K/mm3 (4.4-11.0)
[2025-06-06 06:38] LABS: Syphilis Antibodies Nonreactive (Nonreactive)
--- NOTE | 2025-06-06 06:43 | PCM.HP.OB ---
HPI - General General Date of Admission: 06/06/25 HPI Narrative GARCIA MAGUIRE, is a 20 F 39 weeks who presents at 39 weeks gestation with spontaneous rupture of membranes. Maternal Data Information COREY Calculator Estimated Delivery Date Method Current WG Current Estimate 06/07/25 Manual 39w 6d Final COREY: 06/07/25 [facility] Medical History (Updated 06/06/25 @ 06:50 by Ana Saleem CNM) H/O traumatic brain injury Depression Anxiety Home Medications ?Medication ?Instructions ?Recorded ?Last Taken ?Type ondansetron 4 mg disintegrating 4 mg PO Q8H 06/07/23 Unknown History tablet rizatriptan 10 mg tablet (Maxalt) See Rx Instructions PO .COMPLEX 06/07/23 Unknown History albuterol sulfate 90 mcg/actuation 1 inh inhalation PRN 06/06/25 Unknown History breath activated powder inhaler Allergy/AdvReac Type Severity Reaction Status Date / Time No Known Allergies Allergy Verified 06/06/25 04:10 Family History no significant family his Surgical History (Updated 06/06/25 @ 05:30 by Lizbeth Cerrato) [place] teeth extracted Hx of tonsillectomy Social History household members: spouse housing: house Smoking Status: Never smoker History Elective abortions Hx Para 0 Spontaneous abortions Hx # Term Pregnancies Ectopic pregnancies Hx # Pregnancies Multiple births # of living children ROS Eyes Eyes: Denies blurry vision, change in vision or spots in vision ENT HEENT: Denies dizziness or headache(s) Cardiovascular Cardiovascular: Denies abdominal pain, chest pain or dyspnea Respiratory/Chest Respiratory/Chest: Denies cough, dyspnea, shortness of breath at rest or shortness of breath with exertion Gastrointestinal Gastrointestinal: Denies abdominal pain, diarrhea or vomiting Genitourinary Genitourinary: Denies change in urinary stream, difficulty urinating or dysuria Musculoskeletal Musculoskeletal: Reports none Integumentary Integumentary: Denies rash Neurologic Neurologic: Denies dizziness, headache(s), memory loss or weakness Psychiatric Psychiatric: Reports none Vital Signs Vital Signs Vital Signs: 06/06/25 04:17 06/06/25 04:17 06/06/25 04:20 Temperature Temperature Source Temporal Pulse Rate 91 Respiratory Rate Blood Pressure 121/81 H BP Systolic 121 BP Diastolic 81 Pulse Ox 06/06/25 04:20 06/06/25 04:20 06/06/25 05:31 Temperature 97.7 F L Temperature Source Temporal Pulse Rate Respiratory Rate 16 Blood Pressure BP Systolic BP Diastolic Pulse Ox 06/06/25 05:31 06/06/25 05:31 06/06/25 05:31 Temperature Temperature Source Pulse Rate 94 Respiratory Rate 16 Blood Pressure BP Systolic BP Diastolic Pulse Ox 98 06/06/25 05:31 06/06/25 05:32 06/06/25 05:32 Temperature 98.2 F Temperature Source Pulse Rate 92 Respiratory Rate Blood Pressure 127/81 H BP Systolic 127 BP Diastolic 81 Pulse Ox Weight Weight: 211 lb 3.245 oz Body Mass Index (BMI) 34.0 Physical Exam Const alert, oriented x3 and no apparent distress General Appearance: cooperative Orientation / Consciousness: awake Exam Limitations: no limitations HEENT normocephalic Head and Scalp: normal to inspection Eyes General Eye: normal appearance of both eyes Neck full ROM and no lymphadenopathy Lymph Lymphatic: no lymphadenopathy noted Chest inspection of chest normal Resp normal respiratory effort, normal air movement and clear to auscultation bilaterally Effort and Inspection: able to speak in complete sentences and symmetric chest movement Cardio regular rate and regular rhythm GI normal to inspection, nondistended, normoactive bowel sounds Manual OB Exam: presentation cephalic Back/Spine normal ROM Extremity full ROM and no calf tenderness Skin no rashes or lesions noted General Skin Exam: no breakdown Neuro oriented x3 and CN's II-XII intact bilaterally Psych mental status grossly normal and thought process normal Labs Labs Labs: Blood Type Pending Antibody Screen Pending Hct 38.2 % (37-47) Hgb 12.9 g/dL (12.0-15.0) Syphilis Total Ab Nonreactive (Nonreactive) Assessment & Plan (1) 39 weeks gestation of : (2) Asthma: (3) Anxiety: (4) H/O traumatic brain injury: (5) Depression: (6) Spontaneous rupture of amniotic membranes: PLAN: Plan CE /-3 ROM plus- Positive GBS negative Admit to labor and delivery Routine labs May desire water - consent signed and on chart Dr. Torres notified of admission and is collaborating physician
[2025-06-06] MEDS: Lactated Ringers 1,000 ML 150 ML IV (12:00)
[2025-06-06] MEDS: Oxytocin 15 Units/NS 250ml 15 UNITS/250 ML IV.SOLN 2 UNITS IV (12:37)
[2025-06-06] MEDS: Lactated Ringers 1,000 ML 999 ML IV (14:51)
[2025-06-06] MEDS: fentaNYL-bupivacaine (epidural) 100 ML BAG EPIDURAL ×2 (15:40→19:43)
[2025-06-06] MEDS: 0.9% Saline Lock 10 ML Syringe IV (16:45)
[2025-06-06] MEDS: Lactated Ringers 1,000 ML 200 ML IV ×2 (17:50→22:38)
[2025-06-06] MEDS: LACTATED RINGERS 500 ML 999 ML IV (23:40)
[2025-06-07] VITALS (67 sets, daily range): BP systolic 101–242; BP diastolic 59–118; PULSE 75–202; RESP 16–18; TEMP 36.5–37.5; O2SAT 80–100
[2025-06-07] MEDS: fentaNYL-bupivacaine (epidural) 100 ML BAG EPIDURAL ×2 (00:44→05:24)
[2025-06-07] MEDS: LACTATED RINGERS 500 ML 999 ML IV (02:58)
[2025-06-07] MEDS: Lactated Ringers 1,000 ML 200 ML IV (04:03)
--- NOTE | 2025-06-07 09:08 | OB.VAGDELI_ITS ---
Maternal Data Information COREY Calculator Estimated Delivery Date Method Current Current Estimate 06/07/25 Manual 40w 0d Vaginal Delivery Maternal Presentation Maternal Presentation: Spontaneous Rupture of Membranes Type of Induction: Pitocin Vaginal Delivery Information Procedure Performed: Spontaneous Vaginal Delivery Surgeon/Practitioner: Jann Torres Date of Procedure: 06/07/25 Pre-Procedure Diagnosis: SROM Post-Procedure Diagnosis: SROM Type of anesthesia: Epidural Estimated Blood Loss: 300ml Findings Description of procedure: Called to room when patient C/C/+2. She was prepped & draped. Patient pushed well to deliver the head. head was gently guided to allow delivery of anterior and posterior shoulders. No excess traction placed on the head. The body delivered. 3VC clamped and cut in delayed fashion. Placenta delivered with gentle traction and good uterine tone obtained. Presentation: MAYURI Amniotic Membrane Rupture Type: Artificial Amniotic Fluid Description: Clear Placental Delivery Description: Expressed Placenta Disposition: [facility] Cord Vessel Description: 3 Vessels Cord Entanglement: None A Gender: Male (1 minute): 9 (5 minute): 9 Delayed Cord Clamping: Yes Woodworking Bench Carpenter student affairs dean: No Post Vaginal Deli Medications given after delivery: IV Pitocin Episiotomy Description: None Laceration: 1st degree (bilateral vaginal - repaired with 3-0 vicryl) Complication Complications: No
[2025-06-07] MEDS: Oxytocin 15 Units/NS 250ml 15 UNITS/250 ML IV.SOLN 83 UNITS IV (10:24)
[2025-06-08] VITALS (8 sets, daily range): BP systolic 102–120; BP diastolic 59–72; PULSE 69–97; RESP 16–18; TEMP 36.4–36.7; O2SAT 96–100
--- NOTE | 2025-06-08 08:37 | PCM.PROGNOTE ---
Subjective Subjective patient seen at bedside, doing well. Patient reports good pain control. lochia mild. breast feeding Objective Data Objective Data Vital Signs: Vital Signs Temp Pulse Resp BP Pulse Ox O2 Del Method 98.0 F 91 18 120/72 100 Room Air 06/08/25 04:15 06/08/25 08:20 06/08/25 08:20 06/08/25 08:20 06/08/25 04:15 06/08/25 08:20 Oxygen Delivery Method Room Air Weight: 95.8 kg Body Mass Index (BMI) 34.0 Intake & Output: Intake and Output for Last 24 Hours 06/06/25 06/07/25 06/08/25 23:59 23:59 23:59 Intake Total 2875.60 / 2875.60 3459.40 / 3459.40 Output Total 3350 / 3350 Balance 2875.60 / 2875.60 109.40 / 109.40 Lab / Micro Data 06/06/25 05:30 Physical Exam Narrative Abd: fundus firm. Const alert and oriented x3 General Appearance: cooperative HEENT normocephalic Neck General: normal visual inspection GI soft to palpation and non-distended GI Narrative: Fundus firm Extremity normal to inspection and no calf tenderness Skin no rashes or lesions noted Neuro oriented x3 and CN's II-XII intact bilaterally Psych mental status grossly normal Assessment & Plan Assessment/Plan (1) Vaginal delivery: PLAN: Plan PPD# 1 , Doing well Routine care pain mgmt ambulation
--- NOTE | 2025-06-08 15:31 | CASEMGMT ---
Social Work Assessment Labor and Delivery Unit Patient Address: [address] [place] [address]: Phone number: [phone] Date of Referral: 06/08/25 Time of Referral:? 551 Referred By: Dr. Torres Date of Intervention: ??06/08/25 Time of Intervention:? 1449 Reason for Referral:? hx of anxiety and depression Sw completed chart review and acknowledges social work consult. Sw presented to bedside and introduced self to mother of baby (MOB- Ella) and father of baby (FOB- Chalino). Sw explained reason for sw involvement and completed psychosocial assessment. History obtained from: medical records, MOB and FOB Household composition: Currently residing in the family home is MOB and FOB. baby to be included in residence when ready for discharge. Parents deny any problems or concerns with their housing, stating that it is safe and secure. Patient's parent/guardian status:? ?FOTushar states that he and MOB met each other online and only exchanged 5 text messages back and forth before they met in person for dinner. They have been together for three years and are now . [place] baby is first baby for both parents. No concerns reported of domestic violence or intimate partner violence. Medical History: PETER is 20 year old female who is 1, para 0- now 1 following labor and delivery of . PETER received routine care during with [facility]. PETER presented to hospital following spontaneous rupture of membranes and delivered baby via vaginal delivery on 06/07/25 at 39 weeks gestation. Baby boy, named Shea Bob, was born weighing 7lbs and had apgars of 9 and 9 at one and five minutes of life, respectfully. PETER is breast feeding and states that baby will be followed by Dr. Elizondo for pediatrics. ? Educational Status:? Both parents graduated from high school and deny problems with reading, learning or comprehension. Financial Status: Both parents are gainfully employed outside of the home. 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 Infant Supplies:?? All necessary baby supplies obtained, including: car seat, safe sleep space, clothes, diapers and wipes. Childcare/Caregiver(s):? MOB will be the primary caregiver to baby, along with FOB when he is not working. When both parents return to work baby will attend [facility] and other family members will provide childcare. Transportation:?? Both parents have their drivers license and reliable means of transportation, no barriers Programs/Agencies Involved: Parents are not connected to any community resources that provide them with financial assistance as they are over income. ??? Children Services/Legal Issues:??No history of children services involvement, no issues or concerns warranting referral to be made. ? Behavioral Health Issues: ??Mental Health History: FOB denies mental health history. MOB states that when she was 15 she had a syncope episode and fell down 15 stairs at school causing her to have a TBI. Along with that TBI she fractured a vertebrae which caused her to have migraines caused MOB to have anxiety and depression. At that time MOB was prescribed Cymbalta, which she reports helped her. PETRE participated in PT and other therapies to help her with her fractured vertebrae and her TBI, and when her migraines went away so did her mental health symptoms. MOB states that she has not struggled with symptoms of anxiety or depression for several years. ??? Substance Use History:?Parents deny substance use prior to and during . ? Family History: Parents deny family history of substance use or significant mental health history. ? Drug Screens: ??No drug screens observed while completing chart review. Family/Social Stressors: MOB and FOB deny any problems, issues, concerns or stressors at this time. ? Support Systems: MOB states that both sides of their families are supportive. Depression/Shaken Baby/Safe Sleeping:? Cristiane educated MOB and FOB on signs and symptoms of baby blues and depression and anxiety. Parents asked appropriate questions. MOB states that she felt good throughout her , denying experiencing any mental health symptoms. MOB states that now that baby has been born she feels good, denies feeling down, sad, tearful, anxious or worrying. FOB states that if MOB were to struggle with her mental health he would be able to recognize and would know how to help and support her. Cristiane educated parents on shaken baby prevention and ABCs of safe sleep. Parents express understanding. ASSESSMENT:? MOB and baby admitted following labor and delivery of . MOB with mental health history of anxiety and depression following a medical incident. MOB denies experiencing any mental health symptoms during or since delivery. MOB was observed laying in bed comfortably and baby laying in bassinet. MOB hand in bassinet comforting baby when he started to fuss, and then when he started to cry she gently picked him up and held him and he calmed. FOB sitting on couch and engaging in conversation as well. FOB asked appropriate questions. Parents were engaging and conversation flowed naturally. Parents have obtained all baby supplies and have natural supports in place. PLAN:? No other services requested or indicated. MOB and baby to be discharged when medically ready. Parents were provided literature regarding: signs and symptoms of baby blues and mood and anxiety disorders, Help Me Grow, shaken baby prevention, ABCs of safe sleep and a list of [facility] resources that are available for them should any needs present themselves. Malaika Garcias, CERTIFIED PERFORMANCE TECHNOLOGIST, COURT SECURITY OFFICER
[2025-06-09 02:58] VITALS: BP 118/73; PULSE 70; RESP 16; TEMP 36.6
[2025-06-09 08:00] VITALS: BP 127/69; PULSE 78; RESP 16; TEMP 37; O2SAT 98
[2025-06-09 08:05] VITALS: BP 127/69; PULSE 78
--- NOTE | 2025-06-09 09:24 | PCM.PN.OB ---
Subjective Subjective Doing well. Ambulating and voiding without difficulty. Mild lochia. Breast feeding. Objective Data Objective Data Vital Signs: Vital Signs Temp Pulse Resp BP Pulse Ox O2 Del Method 98.6 F 78 16 127/69 H 98 Room Air 06/09/25 08:00 06/09/25 08:05 06/09/25 08:00 06/09/25 08:05 06/09/25 08:00 06/09/25 08:00 Oxygen Delivery Method Room Air Weight: 95.8 kg Body Mass Index (BMI) 34.0 Intake & Output: Intake and Output for Last 24 Hours 06/07/25 06/08/25 06/09/25 23:59 23:59 23:59 Intake Total 3459.40 / 3459.40 Output Total 3350 / 3350 Balance 109.40 / 109.40 Lab / Micro Data 06/06/25 05:30 ROS Constitutional Constitutional: Denies headache(s) Cardiovascular Cardiovascular: Denies chest pain or dyspnea Gastrointestinal Gastrointestinal: Denies nausea or vomiting Genitourinary Genitourinary: Denies dysuria Physical Exam Const alert, oriented x3 and no apparent distress General Appearance: cooperative and comfortable Eyes PERRL and EOMs intact bilaterally Resp normal respiratory effort GI soft to palpation and non-tender Narrative: Fundus firm, below umbilicus. Uterus Palpation: uterus fundus firm ( below umbilicus) Extremity normal to inspection and full ROM Neuro oriented x3 and CN's II-XII intact bilaterally Psych mental status grossly normal Assessment & Plan (1) Vaginal delivery: PLAN: Plan Discharge home
--- NOTE | 2025-06-09 09:25 | PCM.DC.SUM ---
Providers Date of Admission: 06/06/25 Date of Discharge: 06/09/25 Primary Care Physician: Kim Ward Reason For Visit: LABOR Diagnosis Discharge Diagnosis (1) Vaginal delivery: Status: Acute Code(s): O80 - Encounter for full-term uncomplicated delivery Plan Discharge home Medications at Discharge Home Medications rizatriptan 10 mg tablet (Maxalt) See Rx Instructions PO .COMPLEX 06/07/23 albuterol sulfate 90 mcg/actuation breath activated powder inhaler 1 inh inhalation PRN 06/06/25 Hospital Course Operations None Procedures None Summary of Care Provided Minutes Spent on Discharge: 20 Hospital Course: Admitted for SROM without complication. Bottle feeding Physical Exam Const alert and no apparent distress Narrative: Fundus firm, below umbilicus. Weight / BMI Weight Weight: 95.8 kg Body Mass Index (BMI) 34.0 ABG / Lab / Microbiology Data 06/06/25 05:30 D/C Instructions May resume sexual activity in: 6 weeks DC O2, CPAP, BIPAP Needs Home O2 Discharge instructions: No Please Follow Up With: Jhoana Haney MD When: Follow up with our office in 1-2 and 6 weeks or as needed. [phone] Meaningful Use Info Meaningful Use Meaningful Use Diagnoses (Choose all that apply): None applicable Discharge Plan Admission Admit Date/Time: 06/06/25 04:51 Primary Reason for Your Visit: labor Attending Provider: Ana Saleem Primary Care Provider: Kim Ward Discharge Orders/Prescriptions Prescriptions: Continued rizatriptan [Maxalt] 10 mg tablet See Rx Instructions .ROUTE .COMPLEX Rx Instructions: take 1 tab at onset of headache; if no relief may repeat 1 tab after at least 2 hrs; max = 3 tabs/24 hr albuterol sulfate 90 mcg/actuation aerosol powdr breath activated 1 inh inhalation PRN Discontinued ondansetron 4 mg tablet,disintegrating 4 mg PO Q8H Referrals / Follow Up: Kim Ward [Other] Disposition Disposition (needs filled in before D/C Order can be placed): Home, Self Care
== END 2025-06-09 10:57 | disposition home or self-care (01) | DRG 807 ==
LOC: WPOUT 05:01 → WP 05:01
PROVIDERS: Admitting Provider Advanced Practice Midwife; Referring Provider Advanced Practice Midwife; Visit Provider Advanced Practice Midwife
DX: O42.92 Full-term premature rupture of membranes, unspecified as to length of time between rupture and onset of labor (principal); Z37.0 Single live birth; O99.344 Other mental disorders complicating childbirth; F32.A Depression, unspecified; J45.909 Unspecified asthma, uncomplicated; F41.9 Anxiety disorder, unspecified; O70.0 First degree perineal laceration during delivery; O99.52 Diseases of the respiratory system complicating childbirth; Z3A.40 40 weeks gestation of pregnancy; Z87.820 Personal history of traumatic brain injury
CPT/HCPCS: 59025; 59050; 84112; 85025; 86780; 86850; 86900; 86901; 99221; A4216; G0378; J2405